=== PATIENT | male | born 1955 | race Caucasian/White ===

== ENCOUNTER 2020-08-11 15:39 | Inpatient (IN) | payer MEDICARE, OTHER, SELFPAY ==
[2020-08-11] VITALS (20 sets, daily range): BP systolic 106–137; BP diastolic 77–99; PULSE 98–132; RESP 18–26; TEMP 36.4–36.7; O2SAT 90–100; BMI 40.6
--- NOTE | 2020-08-11 15:54 | XR_ITS ---
WS: [id number] Right foot, 3 views, 08/11/2020 Clinical Data: injury Comparison: None. Findings: No new fractures or dislocations are seen. There is a unhealed old fracture of the base of the right fifth metatarsal. There is soft tissue swelling and subcutaneous air adjacent to the medial aspect of the right great toe proximal phalanx. There is a small erosion at the head of the right first metata rsal The metatarsal tarsal junction show severe osteoarthritic change. There is an Achilles spur. The re is calcification in the martinez of small arteries consistent with diabetes. XR/XR foot RT min 3V* [id number] Impression: 1. Soft tissue swelling and subcutaneous air adjacent to the right great toe pr oximal phalanx which may represent cellulitis with a small erosion of the head of the right first metatarsal that could represent osteomyelitis. 2. Old fracture of base of right fifth metatarsal. 3. 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
--- NOTE | 2020-08-11 17:44 | CTR_ITS ---
PROCEDURE INFORMATION: Exam: CT Right Lower Extremity Without Contrast, Foot Exam date and time: 08/11/2020 7:09 PM Age: 65 years old Clinical indication: Pain; Foot; Right; Additional info: Infection TECHNIQUE: Imaging protocol: CT of the Right lower extremity without contrast was performed. Exam focused on the foot. Radiation optimization: All CT scans at this facility use at least one of these dose optimization techniques: automated exposure control; mA and/or kV adjustment per patient size (includes targeted exams where dose is matched to clinical indication); or iterative reconstruction. COMPARISON: CR XR foot RT min 3V* [id number] 08/11/2020 4:32 PM RADIATION DOSE METRICS: Total DLP (mGy-cm): 205.32 FINDINGS: Bones/joints: There is no osseous erosion at the site of soft tissue infection in the great toe. No fractures or malalignment. There is marked diffuse intertarsal and tarsometatarsal arthrosis characterized by irregularity and fragmentation of the articular surfaces with subchondral sclerosis and minimal intra-articular debris. No acute fracture. Ankle is unremarkable. Soft tissues: There is focal soft tissue edema and gas along the medial aspect of the great toe. There is diffuse edema in the dorsum of the foot and surrounding the ankle. Vasculature: There is marked vascular calcification in the ankle and foot. CT/CT foot RT wo con* [id number] IMPRESSION: 1. No definitive findings of osteomyelitis. 2. Focal soft tissue gas along the medial aspect of the great toe consistent with infection. The presence of gas may be due to disruption of the overlying skin. Necrotizing soft tissue infection cannot be excluded. 3. 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 Radiation Dose CTDIVOL = (mGy): DLP = 205.32 (mGy-cm)
--- NOTE | 2020-08-11 18:24 | ED_ITS ---
Documented by User: ELLA Carrillo 08/11/20 18:48 HPI - Skin/Abscess/Foreign Bdy General: Chief complaint: Skin/Abscess/Foreign Body Stated complaint: R FOOT PAIN Time Seen by Provider: 08/11/20 15:54 History of Present Illness: HPI narrative: Patient complains about tenderness drainage sore that is appeared on his right big toe at the base just the last day and a half was seen by PCP Riley Santiago at [place] and sent over here. Is diabetic and on dialysis patient recently treated at [facility] in [place] with Covid infection complaint: abscess/boil Onset (ago): day(s) Tetanus up to date: yes Location: R foot Severity: moderate Associated symptoms: Deny chills, fever(s), nausea or vomiting Treatments prior to arrival: none Review of Systems Const: Denies: fever(s), chills or body aches Eyes: Denies: change in vision or blurry vision ENMT: Denies: throat pain or nasal congestion Card: Denies: chest pain or dyspnea on exertion Resp: Denies: dyspnea, productive cough or non-productive cough GI: Denies: abdominal pain, nausea or vomiting : Denies: difficulty urinating Musc: Reports: joint swelling (Drainage from base of right big toe) and joint redness; Denies: extremity pain Skin/Breast: Denies: rash Neuro: Denies: headache(s) Psych: Denies: anxiety or depression Edmundo/Lymph: Denies: easy bruising Physical Exam Const: COMMON NORMALS: no acute distress, average body habitus and patient oriented x3 HENMT: COMMON NORMALS: normocephalic HEAD & SCALP: normal to inspection and normocephalic FACE & SINUS: normal facial exam Eye: COMMON NORMALS: conjunctivae normal GENERAL EYE: appearance normal, both eyes and all related structures CONJUNCTIVA: Yes conjunctivae normal Neck/C-Spine: COMMON NORMALS: no JVD Chest: COMMONS NORMALS: normal inspection of the chest Resp: COMMON NORMALS: normal respiratory effort and clear to auscultation bilaterally AUSCULTATION: clear to auscultation bilaterally Cardio: COMMON NORMALS: no JVD and regular rhythm RATE: tachycardic RHYTHM: regular rhythm GI: COMMON NORMALS: Normal to inspection, nondistended, normoactive bowel sounds present Extremity: COMMON NORMALS: normal to inspection and full ROM RIGHT LOWER EXTREMITY: Yes foot & digits (Patient right big toe with foul-smelling drainage medial aspect shows disco) Neuro: COMMON NORMALS: patient oriented x3 Course Vital Signs: Vital signs: Vital Signs Temperature 98.5 F 08/12/20 01:32 Pulse Rate 87 08/12/20 02:10 Respiratory Rate 20 H 08/12/20 02:10 Blood Pressure 110/79 08/12/20 02:10 Pulse Oximetry 98 08/12/20 02:10 MDM - Skin/Abscess/Foreign Bdy MDM Narrative: Medical decision making narrative: Discussed case with Dr. Kinsey Lab Data: Labs: Lab Results 08/11/20 08/11/20 08/11/20 Range/Units 18:17 18:17 18:17 WBC 19.8 H (4.0-10.0) 10^3/ uL RBC 2.29 L (4.1-5.3) 10^6/u L Hgb 6.8 L (11.7-16.6) g/dL Hct 20.8 L* (42.0-52.0) % MCV 90.8 (80-94) fL MCH 29.7 (28.0-34.0) pg MCHC 32.7 (30.0-36.0) g/dL RDW 14.4 (12.1-15.1) % Plt Count 311 (130-400) 10^3/c mm MPV 10.2 (7.4-10.4) fL Neut % (Auto) 83.9 % Lymph % (Auto) 3.9 % Perkins % (Auto) 10.4 % Eos % (Auto) 0.4 % Baso % (Auto) 0.3 % Neut # (Auto) 16.64 H (1.8-7.7) 10^3/u L Lymph # (Auto) 0.8 (0.8-4.8) 10^3/u L Perkins # (Auto) 2.1 H (0.2-0.9) 10^3/u L Eos # (Auto) 0.1 (0.0-0.8) 10^3/u L Baso # (Auto) 0.1 (0.0-0.1) 10^3/u L Nucleated RBC % (a uto) 0 % Nucleated RBCs # 0.0 /100WBC ESR (0-10) mm/hr PT 15.30 H (12.1-14.9) SECO NDS INR 1.17 (0.8-1.2) APTT 38.6 H (23.9-36.7) SECO NDS Sodium 133 L (136-145) mmol/L Potassium 3.6 (3.5-5.1) mmol/L Chloride 96 L (98-107) mmol/L Carbon Dioxide 22 (22-29) mmol/L Anion Gap 18.6 (5-19) BUN 70 H (8-23) mg/dL Creatinine 6.5 H* (0.7-1.2) mg/dL GFR Calculation 8.6 L (90-130) mL/min Glucose 131 H (65-115) mg/dL Calculated Osmolal ity 298 H (285-295) mOsm/k g Lactic Acid (0.5-2.2) mmol/L Calcium 8.9 (8.5-10.5) mg/dL Magnesium (1.7-2.3) mg/dL Total Bilirubin 0.2 (0.15-1.2) mg/dL AST 25 (0-40) U/L ALT 34 (0-41) U/L Alkaline Phosphata se 131 H (40-130) IU/L Troponin T Baselin e (0-15) ng/L Troponin T 120 Min little traverse (0-15) ng/L Delta Troponin T (0-10) ABS# C-Reactive Protein (0.0-4.9) mg/L Total Protein 6.4 L (6.6-8.7) g/dL Albumin 2.8 L (3.5-5.2) g/dL Globulin 3.6 (1.3-4.6) g/dL Urine Color (Yellow) Urine Appearance (CLEAR) Urine pH (5-7) Ur Specific Gravit y (1.005-1.030) Urine Protein (Negative) Urine Glucose (UA) (Normal) Urine Ketones (Negative) Urine Blood (Negative) Urine Nitrate (Negative) Urine Bilirubin (Negative) Urine Urobilinogen (Negative) mg/dL Ur Leukocyte Frannie ase (Negative) Urine RBC (0-2) /hpf Urine WBC (0-5) /hpf Ur Squamous Epith Cells (0-5) /hpf Amorphous Sediment Urine Bacteria (NONE) /hpf Blood Type Rho(D) Type Antibody Screen Crossmatch 08/11/20 08/11/20 08/11/20 Range/Units 18:17 18:17 18:17 WBC (4.0-10.0) 10^3/ uL RBC (4.1-5.3) 10^6/u L Hgb (11.7-16.6) g/dL Hct (42.0-52.0) % MCV (80-94) fL MCH (28.0-34.0) pg MCHC (30.0-36.0) g/dL RDW (12.1-15.1) % Plt Count (130-400) 10^3/c mm MPV (7.4-10.4) fL Neut % (Auto) % Lymph % (Auto) % Perkins % (Auto) % Eos % (Auto) % Baso % (Auto) % Neut # (Auto) (1.8-7.7) 10^3/u L Lymph # (Auto) (0.8-4.8) 10^3/u L Perkins # (Auto) (0.2-0.9) 10^3/u L Eos # (Auto) (0.0-0.8) 10^3/u L Baso # (Auto) (0.0-0.1) 10^3/u L Nucleated RBC % (a uto) % Nucleated RBCs # /100WBC ESR > 120 H (0-10) mm/hr PT (12.1-14.9) SECO NDS INR (0.8-1.2) APTT (23.9-36.7) SECO NDS Sodium (136-145) mmol/L Potassium (3.5-5.1) mmol/L Chloride (98-107) mmol/L Carbon Dioxide (22-29) mmol/L Anion Gap (5-19) BUN (8-23) mg/dL Creatinine (0.7-1.2) mg/dL GFR Calculation (90-130) mL/min Glucose (65-115) mg/dL Calculated Osmolal ity (285-295) mOsm/k g Lactic Acid (0.5-2.2) mmol/L Calcium (8.5-10.5) mg/dL Magnesium 1.4 L (1.7-2.3) mg/dL Total Bilirubin (0.15-1.2) mg/dL AST (0-40) U/L ALT (0-41) U/L Alkaline Phosphata se (40-130) IU/L Troponin T Baselin e 149 H* (0-15) ng/L Troponin T 120 Min little traverse (0-15) ng/L Delta Troponin T (0-10) ABS# C-Reactive Protein 175.5 H (0.0-4.9) mg/L Total Protein (6.6-8.7) g/dL Albumin (3.5-5.2) g/dL Globulin (1.3-4.6) g/dL Urine Color (Yellow) Urine Appearance (CLEAR) Urine pH (5-7) Ur Specific Gravit y (1.005-1.030) Urine Protein (Negative) Urine Glucose (UA) (Normal) Urine Ketones (Negative) Urine Blood (Negative) Urine Nitrate (Negative) Urine Bilirubin (Negative) Urine Urobilinogen (Negative) mg/dL Ur Leukocyte Frannie ase (Negative) Urine RBC (0-2) /hpf Urine WBC (0-5) /hpf Ur Squamous Epith Cells (0-5) /hpf Amorphous Sediment Urine Bacteria (NONE) /hpf Blood Type Rho(D) Type Antibody Screen Crossmatch 08/11/20 08/11/20 08/11/20 Range/Units 19:13 20:30 21:35 WBC (4.0-10.0) 10^3/ uL RBC (4.1-5.3) 10^6/u L Hgb (11.7-16.6) g/dL Hct (42.0-52.0) % MCV (80-94) fL MCH (28.0-34.0) pg MCHC (30.0-36.0) g/dL RDW (12.1-15.1) % Plt Count (130-400) 10^3/c mm MPV (7.4-10.4) fL Neut % (Auto) % Lymph % (Auto) % Perkins % (Auto) % Eos % (Auto) % Baso % (Auto) % Neut # (Auto) (1.8-7.7) 10^3/u L Lymph # (Auto) (0.8-4.8) 10^3/u L Perkins # (Auto) (0.2-0.9) 10^3/u L Eos # (Auto) (0.0-0.8) 10^3/u L Baso # (Auto) (0.0-0.1) 10^3/u L Nucleated RBC % (a uto) % Nucleated RBCs # /100WBC ESR (0-10) mm/hr PT (12.1-14.9) SECO NDS INR (0.8-1.2) APTT (23.9-36.7) SECO NDS Sodium (136-145) mmol/L Potassium (3.5-5.1) mmol/L Chloride (98-107) mmol/L Carbon Dioxide (22-29) mmol/L Anion Gap (5-19) BUN (8-23) mg/dL Creatinine (0.7-1.2) mg/dL GFR Calculation (90-130) mL/min Glucose (65-115) mg/dL Calculated Osmolal ity (285-295) mOsm/k g Lactic Acid 0.9 (0.5-2.2) mmol/L Calcium (8.5-10.5) mg/dL Magnesium (1.7-2.3) mg/dL Total Bilirubin (0.15-1.2) mg/dL AST (0-40) U/L ALT (0-41) U/L Alkaline Phosphata se (40-130) IU/L Troponin T Baselin e (0-15) ng/L Troponin T 120 Min little traverse (0-15) ng/L Delta Troponin T (0-10) ABS# C-Reactive Protein (0.0-4.9) mg/L Total Protein (6.6-8.7) g/dL Albumin (3.5-5.2) g/dL Globulin (1.3-4.6) g/dL Urine Color Yellow (Yellow) Urine Appearance Clear (CLEAR) Urine pH 6.5 (5-7) Ur Specific Gravit y 1.010 (1.005-1.030) Urine Protein 3+ H (Negative) Urine Glucose (UA) 2+ (Normal) Urine Ketones Negative (Negative) Urine Blood 1+ H (Negative) Urine Nitrate Negative (Negative) Urine Bilirubin Neg (Negative) Urine Urobilinogen Norm (Negative) mg/dL Ur Leukocyte Frannie ase Negative (Negative) Urine RBC 0-4 H (0-2) /hpf Urine WBC None (0-5) /hpf Ur Squamous Epith Cells None (0-5) /hpf Amorphous Sediment Not Reportable Urine Bacteria Trace (NONE) /hpf Blood Type O Negative Rho(D) Type Negative Antibody Screen Negative Crossmatch See Detail 08/11/20 Range/Units 21:35 WBC (4.0-10.0) 10^3/ uL RBC (4.1-5.3) 10^6/u L Hgb (11.7-16.6) g/dL Hct (42.0-52.0) % MCV (80-94) fL MCH (28.0-34.0) pg MCHC (30.0-36.0) g/dL RDW (12.1-15.1) % Plt Count (130-400) 10^3/c mm MPV (7.4-10.4) fL Neut % (Auto) % Lymph % (Auto) % Perkins % (Auto) % Eos % (Auto) % Baso % (Auto) % Neut # (Auto) (1.8-7.7) 10^3/u L Lymph # (Auto) (0.8-4.8) 10^3/u L Perkins # (Auto) (0.2-0.9) 10^3/u L Eos # (Auto) (0.0-0.8) 10^3/u L Baso # (Auto) (0.0-0.1) 10^3/u L Nucleated RBC % (a uto) % Nucleated RBCs # /100WBC ESR (0-10) mm/hr PT (12.1-14.9) SECO NDS INR (0.8-1.2) APTT (23.9-36.7) SECO NDS Sodium (136-145) mmol/L Potassium (3.5-5.1) mmol/L Chloride (98-107) mmol/L Carbon Dioxide (22-29) mmol/L Anion Gap (5-19) BUN (8-23) mg/dL Creatinine (0.7-1.2) mg/dL GFR Calculation (90-130) mL/min Glucose (65-115) mg/dL Calculated Osmolal ity (285-295) mOsm/k g Lactic Acid (0.5-2.2) mmol/L Calcium (8.5-10.5) mg/dL Magnesium (1.7-2.3) mg/dL Total Bilirubin (0.15-1.2) mg/dL AST (0-40) U/L ALT (0-41) U/L Alkaline Phosphata se (40-130) IU/L Troponin T Baselin e (0-15) ng/L Troponin T 120 Min little traverse 142.4 H (0-15) ng/L Delta Troponin T -6.6 L (0-10) ABS# C-Reactive Protein (0.0-4.9) mg/L Total Protein (6.6-8.7) g/dL Albumin (3.5-5.2) g/dL Globulin (1.3-4.6) g/dL Urine Color (Yellow) Urine Appearance (CLEAR) Urine pH (5-7) Ur Specific Gravit y (1.005-1.030) Urine Protein (Negative) Urine Glucose (UA) (Normal) Urine Ketones (Negative) Urine Blood (Negative) Urine Nitrate (Negative) Urine Bilirubin (Negative) Urine Urobilinogen (Negative) mg/dL Ur Leukocyte Frannie ase (Negative) Urine RBC (0-2) /hpf Urine WBC (0-5) /hpf Ur Squamous Epith Cells (0-5) /hpf Amorphous Sediment Urine Bacteria (NONE) /hpf Blood Type Rho(D) Type Antibody Screen Crossmatch Discharge Plan Discharge Patient Disposition: Home Clinical Impression: Atrial fibrillation with RVR Cellulitis Qualifiers: Site of cellulitis: extremity Site of cellulitis of extremity: lower extremity Laterality: right Qualified Code(s): L03.115 - Cellulitis of right lower limb Anemia Qualifiers: Anemia type: unspecified type Qualified Code(s): D64.9 - Anemia, unspecified Condition: Stable Sign Out Sign Out Data: Patient Sign Out occurred on 08/11/20 at 18:53. Patient's care was discussed, and care was transferred from to [facility]. Coding Level of Care Code ED Machine Fixer for Chg Fwd Exam Comprehensive Documented by User: Bev Kinsey 08/12/20 02:33 HPI - Skin/Abscess/Foreign Bdy General: Chief complaint: Skin/Abscess/Foreign Body Stated complaint: R FOOT PAIN Time Seen by Provider: 08/11/20 15:54 Course Vital Signs: Vital signs: Vital Signs Temperature 98.5 F 08/12/20 01:32 Pulse Rate 87 08/12/20 02:10 Respiratory Rate 20 H 08/12/20 02:10 Blood Pressure 110/79 08/12/20 02:10 Pulse Oximetry 98 08/12/20 02:10 MDM - Skin/Abscess/Foreign Bdy MDM Narrative: Medical decision making narrative: 1899 -Case turned over to me from Jj Barba APN. Please see his note for his history, physical exam and medical decision-making notes. Patient states that yesterday morning he woke up with his foot was red and swollen. The day before he had no problems. He does not remember any puncture wounds, injuries, trauma or any other problems with that foot. He went and saw his primary care provider Riley Garcia he placed him on Keflex and possibly doxycycline. Patient went on to these medicines but since that time the infection and swelling has gotten progressively worse. He has had some chills but denies any fever. Patient does have multiple medical problems and does peritoneal dialysis at night. He has hypertension, diabetes is unaware if he has any history of vascular disease. Currently the patient has mild discomfort but otherwise no complaints. He has been referred to see Dr. Woodall but has not been able to make that appointment as it is not till later this month. 2300 -the patient is improved on a Cardizem drip and is receiving blood. His CT scan shows gas in the tissues but on the area that it describes there is areas of spontaneous drainage. I do not believe there to be underlying abscess and I do not clinically believe the patient has necrotizing fasciitis. There is no CT evidence of osteomyelitis. Patient received aggressive antibiotics and ultrasound shows good blood flow to his foot and he does have a good sensation. His pain is not out of proportion to exam. There is no DVT noted either. I contacted and reviewed the case in full with Dr. Coyne he is agreeable to see the patient in consult. The case was endorsed to Dr. Gibbons he agrees admit the patient to the ICU. Currently the patient is receiving blood, he is not on pressors but he is on a Cardizem drip with improved rate control of his A. fib. In regards the patient's anemia he has had an ulcer in the past and with that he had to have a transfusion but he had melena with that episode. He denies any blood in his stools or melena at this time. Lab Data: Labs: Lab Results 08/11/20 08/11/20 08/11/20 Range/Units 18:17 18:17 18:17 WBC 19.8 H (4.0-10.0) 10^3/ uL RBC 2.29 L (4.1-5.3) 10^6/u L Hgb 6.8 L (11.7-16.6) g/dL Hct 20.8 L* (42.0-52.0) % MCV 90.8 (80-94) fL MCH 29.7 (28.0-34.0) pg MCHC 32.7 (30.0-36.0) g/dL RDW 14.4 (12.1-15.1) % Plt Count 311 (130-400) 10^3/c mm MPV 10.2 (7.4-10.4) fL Neut % (Auto) 83.9 % Lymph % (Auto) 3.9 % Perkins % (Auto) 10.4 % Eos % (Auto) 0.4 % Baso % (Auto) 0.3 % Neut # (Auto) 16.64 H (1.8-7.7) 10^3/u L Lymph # (Auto) 0.8 (0.8-4.8) 10^3/u L Perkins # (Auto) 2.1 H (0.2-0.9) 10^3/u L Eos # (Auto) 0.1 (0.0-0.8) 10^3/u L Baso # (Auto) 0.1 (0.0-0.1) 10^3/u L Nucleated RBC % (a uto) 0 % Nucleated RBCs # 0.0 /100WBC ESR (0-10) mm/hr PT 15.30 H (12.1-14.9) SECO NDS INR 1.17 (0.8-1.2) APTT 38.6 H (23.9-36.7) SECO NDS Sodium 133 L (136-145) mmol/L Potassium 3.6 (3.5-5.1) mmol/L Chloride 96 L (98-107) mmol/L Carbon Dioxide 22 (22-29) mmol/L Anion Gap 18.6 (5-19) BUN 70 H (8-23) mg/dL Creatinine 6.5 H* (0.7-1.2) mg/dL GFR Calculation 8.6 L (90-130) mL/min Glucose 131 H (65-115) mg/dL Calculated Osmolal ity 298 H (285-295) mOsm/k g Lactic Acid (0.5-2.2) mmol/L Calcium 8.9 (8.5-10.5) mg/dL Magnesium (1.7-2.3) mg/dL Total Bilirubin 0.2 (0.15-1.2) mg/dL AST 25 (0-40) U/L ALT 34 (0-41) U/L Alkaline Phosphata se 131 H (40-130) IU/L Troponin T Baselin e (0-15) ng/L Troponin T 120 Min little traverse (0-15) ng/L Delta Troponin T (0-10) ABS# C-Reactive Protein (0.0-4.9) mg/L Total Protein 6.4 L (6.6-8.7) g/dL Albumin 2.8 L (3.5-5.2) g/dL Globulin 3.6 (1.3-4.6) g/dL Urine Color (Yellow) Urine Appearance (CLEAR) Urine pH (5-7) Ur Specific Gravit y (1.005-1.030) Urine Protein (Negative) Urine Glucose (UA) (Normal) Urine Ketones (Negative) Urine Blood (Negative) Urine Nitrate (Negative) Urine Bilirubin (Negative) Urine Urobilinogen (Negative) mg/dL Ur Leukocyte Frannie ase (Negative) Urine RBC (0-2) /hpf Urine WBC (0-5) /hpf Ur Squamous Epith Cells (0-5) /hpf Amorphous Sediment Urine Bacteria (NONE) /hpf Blood Type Rho(D) Type Antibody Screen Crossmatch 08/11/20 08/11/20 08/11/20 Range/Units 18:17 18:17 18:17 WBC (4.0-10.0) 10^3/ uL RBC (4.1-5.3) 10^6/u L Hgb (11.7-16.6) g/dL Hct (42.0-52.0) % MCV (80-94) fL MCH (28.0-34.0) pg MCHC (30.0-36.0) g/dL RDW (12.1-15.1) % Plt Count (130-400) 10^3/c mm MPV (7.4-10.4) fL Neut % (Auto) % Lymph % (Auto) % Perkins % (Auto) % Eos % (Auto) % Baso % (Auto) % Neut # (Auto) (1.8-7.7) 10^3/u L Lymph # (Auto) (0.8-4.8) 10^3/u L Perkins # (Auto) (0.2-0.9) 10^3/u L Eos # (Auto) (0.0-0.8) 10^3/u L Baso # (Auto) (0.0-0.1) 10^3/u L Nucleated RBC % (a uto) % Nucleated RBCs # /100WBC ESR > 120 H (0-10) mm/hr PT (12.1-14.9) SECO NDS INR (0.8-1.2) APTT (23.9-36.7) SECO NDS Sodium (136-145) mmol/L Potassium (3.5-5.1) mmol/L Chloride (98-107) mmol/L Carbon Dioxide (22-29) mmol/L Anion Gap (5-19) BUN (8-23) mg/dL Creatinine (0.7-1.2) mg/dL GFR Calculation (90-130) mL/min Glucose (65-115) mg/dL Calculated Osmolal ity (285-295) mOsm/k g Lactic Acid (0.5-2.2) mmol/L Calcium (8.5-10.5) mg/dL Magnesium 1.4 L (1.7-2.3) mg/dL Total Bilirubin (0.15-1.2) mg/dL AST (0-40) U/L ALT (0-41) U/L Alkaline Phosphata se (40-130) IU/L Troponin T Baselin e 149 H* (0-15) ng/L Troponin T 120 Min little traverse (0-15) ng/L Delta Troponin T (0-10) ABS# C-Reactive Protein 175.5 H (0.0-4.9) mg/L Total Protein (6.6-8.7) g/dL Albumin (3.5-5.2) g/dL Globulin (1.3-4.6) g/dL Urine Color (Yellow) Urine Appearance (CLEAR) Urine pH (5-7) Ur Specific Gravit y (1.005-1.030) Urine Protein (Negative) Urine Glucose (UA) (Normal) Urine Ketones (Negative) Urine Blood (Negative) Urine Nitrate (Negative) Urine Bilirubin (Negative) Urine Urobilinogen (Negative) mg/dL Ur Leukocyte Frannie ase (Negative) Urine RBC (0-2) /hpf Urine WBC (0-5) /hpf Ur Squamous Epith Cells (0-5) /hpf Amorphous Sediment Urine Bacteria (NONE) /hpf Blood Type Rho(D) Type Antibody Screen Crossmatch 08/11/20 08/11/20 08/11/20 Range/Units 19:13 20:30 21:35 WBC (4.0-10.0) 10^3/ uL RBC (4.1-5.3) 10^6/u L Hgb (11.7-16.6) g/dL Hct (42.0-52.0) % MCV (80-94) fL MCH (28.0-34.0) pg MCHC (30.0-36.0) g/dL RDW (12.1-15.1) % Plt Count (130-400) 10^3/c mm MPV (7.4-10.4) fL Neut % (Auto) % Lymph % (Auto) % Perkins % (Auto) % Eos % (Auto) % Baso % (Auto) % Neut # (Auto) (1.8-7.7) 10^3/u L Lymph # (Auto) (0.8-4.8) 10^3/u L Perkins # (Auto) (0.2-0.9) 10^3/u L Eos # (Auto) (0.0-0.8) 10^3/u L Baso # (Auto) (0.0-0.1) 10^3/u L Nucleated RBC % (a uto) % Nucleated RBCs # /100WBC ESR (0-10) mm/hr PT (12.1-14.9) SECO NDS INR (0.8-1.2) APTT (23.9-36.7) SECO NDS Sodium (136-145) mmol/L Potassium (3.5-5.1) mmol/L Chloride (98-107) mmol/L Carbon Dioxide (22-29) mmol/L Anion Gap (5-19) BUN (8-23) mg/dL Creatinine (0.7-1.2) mg/dL GFR Calculation (90-130) mL/min Glucose (65-115) mg/dL Calculated Osmolal ity (285-295) mOsm/k g Lactic Acid 0.9 (0.5-2.2) mmol/L Calcium (8.5-10.5) mg/dL Magnesium (1.7-2.3) mg/dL Total Bilirubin (0.15-1.2) mg/dL AST (0-40) U/L ALT (0-41) U/L Alkaline Phosphata se (40-130) IU/L Troponin T Baselin e (0-15) ng/L Troponin T 120 Min little traverse (0-15) ng/L Delta Troponin T (0-10) ABS# C-Reactive Protein (0.0-4.9) mg/L Total Protein (6.6-8.7) g/dL Albumin (3.5-5.2) g/dL Globulin (1.3-4.6) g/dL Urine Color Yellow (Yellow) Urine Appearance Clear (CLEAR) Urine pH 6.5 (5-7) Ur Specific Gravit y 1.010 (1.005-1.030) Urine Protein 3+ H (Negative) Urine Glucose (UA) 2+ (Normal) Urine Ketones Negative (Negative) Urine Blood 1+ H (Negative) Urine Nitrate Negative (Negative) Urine Bilirubin Neg (Negative) Urine Urobilinogen Norm (Negative) mg/dL Ur Leukocyte Frannie ase Negative (Negative) Urine RBC 0-4 H (0-2) /hpf Urine WBC None (0-5) /hpf Ur Squamous Epith Cells None (0-5) /hpf Amorphous Sediment Not Reportable Urine Bacteria Trace (NONE) /hpf Blood Type O Negative Rho(D) Type Negative Antibody Screen Negative Crossmatch See Detail 08/11/20 Range/Units 21:35 WBC (4.0-10.0) 10^3/ uL RBC (4.1-5.3) 10^6/u L Hgb (11.7-16.6) g/dL Hct (42.0-52.0) % MCV (80-94) fL MCH (28.0-34.0) pg MCHC (30.0-36.0) g/dL RDW (12.1-15.1) % Plt Count (130-400) 10^3/c mm MPV (7.4-10.4) fL Neut % (Auto) % Lymph % (Auto) % Perkins % (Auto) % Eos % (Auto) % Baso % (Auto) % Neut # (Auto) (1.8-7.7) 10^3/u L Lymph # (Auto) (0.8-4.8) 10^3/u L Perkins # (Auto) (0.2-0.9) 10^3/u L Eos # (Auto) (0.0-0.8) 10^3/u L Baso # (Auto) (0.0-0.1) 10^3/u L Nucleated RBC % (a uto) % Nucleated RBCs # /100WBC ESR (0-10) mm/hr PT (12.1-14.9) SECO NDS INR (0.8-1.2) APTT (23.9-36.7) SECO NDS Sodium (136-145) mmol/L Potassium (3.5-5.1) mmol/L Chloride (98-107) mmol/L Carbon Dioxide (22-29) mmol/L Anion Gap (5-19) BUN (8-23) mg/dL Creatinine (0.7-1.2) mg/dL GFR Calculation (90-130) mL/min Glucose (65-115) mg/dL Calculated Osmolal ity (285-295) mOsm/k g Lactic Acid (0.5-2.2) mmol/L Calcium (8.5-10.5) mg/dL Magnesium (1.7-2.3) mg/dL Total Bilirubin (0.15-1.2) mg/dL AST (0-40) U/L ALT (0-41) U/L Alkaline Phosphata se (40-130) IU/L Troponin T Baselin e (0-15) ng/L Troponin T 120 Min [place] 142.4 H (0-15) ng/L Delta Troponin T -6.6 L (0-10) ABS# C-Reactive Protein (0.0-4.9) mg/L Total Protein (6.6-8.7) g/dL Albumin (3.5-5.2) g/dL Globulin (1.3-4.6) g/dL Urine Color (Yellow) Urine Appearance (CLEAR) Urine pH (5-7) Ur Specific Gravit y (1.005-1.030) Urine Protein (Negative) Urine Glucose (UA) (Normal) Urine Ketones (Negative) Urine Blood (Negative) Urine Nitrate (Negative) Urine Bilirubin (Negative) Urine Urobilinogen (Negative) mg/dL Ur Leukocyte Frannie ase (Negative) Urine RBC (0-2) /hpf Urine WBC (0-5) /hpf Ur Squamous Epith Cells (0-5) /hpf Amorphous Sediment Urine Bacteria (NONE) /hpf Blood Type Rho(D) Type Antibody Screen Crossmatch Imaging Data^: XR Right Foot: Attestation: I personally reviewed and interpreted this imaging study as follows: My impression: Possible osteolytic lesions based the first metatarsal CT Right Foot: Radiologist's impression: [address] [address] [address] Scan Report Signed Patient: Levi Bonilla #: [id number] : 4Acct#:[id number] Age/Sex: 65 / MADM Date: 08/11/20 Loc: ERRoom/Bed: Attending Dr: Ordering Provider/Ordering MD: Divine Barba Sr, [facility]- Date of Service: 08/11/20 Procedure(s): CT foot RT wo con* [id number] Accession Number(s): [id number] Report Number: [id number] PROCEDURE INFORMATION: Exam: CT Right Lower Extremity Without Contrast, Foot Exam date and time: 08/11/2020 7:09 PM Age: 65 years old Clinical indication: Pain; Foot; Right; Additional info: Infection TECHNIQUE: Imaging protocol: CT of the Right lower extremity without contrast was performed. Exam focused on the foot. Radiation optimization: All CT scans at this facility use at least one of these dose optimization techniques: automated exposure control; mA and/or kV adjustment per patient size (includes targeted exams where dose is matched to clinical indication); or iterative reconstruction. COMPARISON: CR XR foot RT min 3V* [id number] 08/11/2020 4:32 PM RADIATION DOSE METRICS: Total DLP (mGy-cm): 205.32 FINDINGS: Bones/joints: There is no osseous erosion at the site of soft tissue infection in the great toe. No fractures or malalignment. There is marked diffuse intertarsal and tarsometatarsal arthrosis characterized by irregularity and fragmentation of the articular surfaces with subchondral sclerosis and minimal intra-articular debris. No acute fracture. Ankle is unremarkable. Soft tissues: There is focal soft tissue edema and gas along the medial aspect of the great toe. There is diffuse edema in the dorsum of the foot and surrounding the ankle. Vasculature: There is marked vascular calcification in the ankle and foot. CT/CT foot RT wo con* [id number] IMPRESSION: 1. No definitive findings of osteomyelitis. 2. Focal soft tissue gas along the medial aspect of the great toe consistent with infection. The presence of gas may be due to disruption of the overlying skin. Necrotizing soft tissue infection cannot be excluded. 3. 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 Radiation Dose CTDIVOL = (mGy): DLP = 205.32 (mGy-cm) Dictated By:Ole Bailey MD Signed By:Ole Baileyigned Date/Time:08/11/201953 DD/ 51 EKG Data^: EKG 1: Attestation: I personally reviewed and interpreted this EKG as follows: EKG Interpretation Date: 08/11/20 EKG interpretation time: 19:38 Interpretation: Atrial fibrillation with a ventricular rate of 133 beats a minute, normal axis, normal QTC, nonspecific ST and T wave changes. Discharge Plan Discharge Patient Disposition: Home Clinical Impression: Atrial fibrillation with RVR Cellulitis Qualifiers: Site of cellulitis: extremity Site of cellulitis of extremity: lower extremity Laterality: right Qualified Code(s): L03.115 - Cellulitis of right lower limb Anemia Qualifiers: Anemia type: unspecified type Qualified Code(s): D64.9 - Anemia, unspecified Condition: Stable Sign Out Sign Out Data: Patient Sign Out occurred on 08/11/20 at 18:53. Patient's care was discussed, and care was transferred from to Bev Kinsey. Coding Level of Care Code ED Machine Fixer for [facility] Fwd Exam Comprehensive
[2020-08-11 18:25] LABS: Basophils # 0.1 10^3/uL (0.0-0.1); Basophils % 0.3 %; Eosinophils # 0.1 10^3/uL (0.0-0.8); Eosinophils % 0.4 %; Hemoglobin 6.8 g/dL (11.7-16.6); Lymphocytes # 0.8 10^3/uL (0.8-4.8); Lymphocytes % 3.9 %; Mean Corpuscular HGB Conc 32.7 g/dL (30.0-36.0); Mean Corpuscular Hemoglobin 29.7 pg (28.0-34.0); Mean Corpuscular Volume 90.8 fL (80-94); Mean Platelet Volume 10.2 fL (7.4-10.4); Monocytes # 2.1 10^3/uL (0.2-0.9); Monocytes % 10.4 %; Neutrophils # 16.64 10^3/uL (1.8-7.7); Neutrophils % 83.9 %; Nucleated Red Blood Cells % 0 %; Platelet Count 311 10^3/cmm (130-400); Red Blood Count 2.29 10^6/uL (4.1-5.3); Red Cell Distribution Width 14.4 % (12.1-15.1); White Blood Count 19.8 10^3/uL (4.0-10.0)
[2020-08-11 18:38] LABS: Hematocrit 20.8 % (42.0-52.0)
--- NOTE | 2020-08-11 18:46 | XR_ITS ---
WS: [id number] Portable AP upright chest, 08/11/2020 Clinical Data: Weakness Comparison: None. Findings: No nodules, masses or effusions are seen. The heart is mildly enlarged. The pulmonary vascu larity is not increased. No pneumonia or pneumothorax is seen. XR/XR chest 1V portable [id number] Impression: Cardiomegaly.
--- NOTE | 2020-08-11 19:05 | ECG_ITS ---
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 Measurements Intervals [place] Rate: 122 P: NC: QRS: 24 QRSD: 95 T: -11 QT: 330 QTc: 470 Interpretive Statements ATRIAL FIBRILLATION WITH RAPID VENTRICULAR RESPONSE WITH ABERRANT CONDUCTION OR VENTRICULAR PREMATURE COMPLEXES NONSPECIFIC ST & T-WAVE ABNORMALITY ABNORMAL RHYTHM ECG Compared to ECG 08/11/2020 19:38:09 Ventricular premature complex(es) now present Aberrant conduction of supraventricular beat(s) now present T-wave abnormality still present Electronically Signed On 08-12-2020 17:22:53 POLYSOMNOGRAPHY TECHNICIAN by Gianluca Meek M.D. [id number]
[2020-08-11 19:08] LABS: Alanine Aminotransferase 34 U/L (0-41); Albumin Level 2.8 g/dL (3.5-5.2); Alkaline Phosphatase 131 IU/L (40-130); Anion Gap 18.6 (5-19); Aspartate Amino Transferase 25 U/L (0-40); Blood Urea Nitrogen 70 mg/dL (8-23); Calcium 8.9 mg/dL (8.5-10.5); Carbon Dioxide 22 mmol/L (22-29); Chloride 96 mmol/L (98-107); Globulin 3.6 g/dL (1.3-4.6); Glomerular Filtration Rate 8.6 mL/min (90-130); Glucose 131 mg/dL (65-115); Osmolality Calculated 298 mOsm/kg (285-295); Potassium 3.6 mmol/L (3.5-5.1); Sodium 133 mmol/L (136-145); Total Bilirubin 0.2 mg/dL (0.15-1.2); Total Protein 6.4 g/dL (6.6-8.7)
[2020-08-11] MEDS: piperacillin-tazobactam 4.5 GM in sodium chloride 0.9% (plus) 50 ML IV (19:41)
[2020-08-11] MEDS: pantoprazole 40 mg SDV 80 MG IVP (19:45)
--- NOTE | 2020-08-11 20:29 | USCV_ITS ---
Irene Levi Age: 65 Gender: M : 1955 Exam Date: 08/11/2020 21:21 Ordering Phys: Bev Kinsey DO Technologist: Fco Buckner [place] [facility] [place]: edema PROCEDURES: No DVT or superficial thrombus in right lower extremity FINDINGS: All veins examined appear free of thrombus. No filling defects on color Doppler flow analysis. Vein flow and caliber vary with respiration. Increase in venous flow with augmentation. All veins appear compressible.. CONCLUSIONS No evidence of right lower extremity DVT. Mayito Martines MD (Electronically Signed) Final Date: 12 August 2020 12:37 S
[2020-08-11] MEDS: sodium chloride 0.9% 1,000 ML 75 ML IV (20:33)
--- NOTE | 2020-08-11 21:05 | ECG_ITS ---
[facility] Test Date: 2020-08-11 Pat Name: Levi Bonilla Department: Room: Gender: Male Manager Apple: : 1955 Requested By: Bev Esquivel Order Number: [id number] Bruce MD: Radha Peterson M.D. Measurements Intervals [place] Rate: 133 P: [place]: QRS: 47 QRSD: 102 T: 27 QT: 339 QTc: 504 Interpretive Statements ATRIAL FIBRILLATION WITH RAPID VENTRICULAR RESPONSE NONSPECIFIC ST & T-WAVE ABNORMALITY No previous ECG available for comparison Electronically Signed On 08-11-2020 20:29:14 REPAIR OPERATOR by Radha Peterson M.D. [id number]
[2020-08-11 21:30] LABS: INR 1.17 (0.8-1.2)
[2020-08-11 21:31] LABS: Partial Thromboplastin Time 38.6 SECONDS (23.9-36.7)
[2020-08-11 21:32] LABS: Blood Urine 1+ (Negative); Glucose Urine UA 2+ (Normal); Ketones Urine Negative (Negative); Protein Urine 3+ (Negative); Urine Appearance Clear (CLEAR); Urine Color Yellow (Yellow); pH Urine 6.5 (5-7)
[2020-08-11 21:33] LABS: Add Urine Culture? No; Add Urine Microscopic? YES; Bacteria Urine TRACE /hpf; Bilirubin Urine Neg (Negative); Leukocyte Esterase Urine Negative (Negative); Nitrate Urine Negative (Negative); RBC Urine 0-4 /hpf (0-2); Urobilinogen Urine Norm (Negative)
[2020-08-11 21:47] LABS: C Reactive Protein 175.5 mg/L (0.0-4.9); Magnesium 1.4 mg/dL (1.7-2.3)
[2020-08-11 21:53] LABS: Troponin(5th) Baseline 149 ng/L (0-15)
[2020-08-11 22:19] LABS: Erythrocyte Sedimentation Rate > 120 mm/hr (0-10)
[2020-08-11 22:34] LABS: Lactic Sepsis W/Reflex 0.9 mmol/L (0.5-2.2)
[2020-08-11 22:35] LABS: Troponin 5 2HR 142.4 ng/L (0-15); Troponin 5 2HR Delta -6.6 ABS# (0-10)
[2020-08-11 22:55] LABS: Glucose Point of Care 150 mg/dL (70-110)
[2020-08-11] MEDS: clindamycin 900 MG/50 ML PREMIX 100 MG IV (22:58)
--- NOTE | 2020-08-11 23:22 | PC.NURSE ---
This RN agrees with silverware assembler assessment of patient
[2020-08-12] VITALS (302 sets, daily range): BP systolic 89–157; BP diastolic 66–115; PULSE 63–124; RESP 0–30; TEMP 36.4–36.9; O2SAT 76–100
--- NOTE | 2020-08-12 00:05 | PM.HP ---
Providers/Chief Complaint Admitting Physician: Lawrence Gibbons MD Primary Care Provider: Anmol Santiago Chief Complaint: R FOOT PAIN History of Present Illness Levi Bonilla is a 65 year old male with past medical history of hypertension diabetes, end-stage renal disease on peritoneal dialysis, Covid pneumonia 07/2020 (was admitted in [facility] for about a week and then discharged), gout, A. fib, status post watchman device placement currently on aspirin only (off anticoagulation post watchman device placement ) hypothyroidism came in with chief complaint of acute onset of tenderness drainage sore that is appeared on his right big toe at the base just the last day and a half, he denies any injury, any insect bite, any pain, any abnormal sensation, any fever. He has longstanding diabetic peripheral neuropathy with abnormal sensory loss in both the lower extremity, Charcot's foot is a possibility. Upon arrival in the ER he was worked up for diabetic foot ulcer. He was also in A. fib with RVR in the ER. Ortho was consulted for possible osteo-management by ER physician.He will see the patient in the morning. Necrotizing fasciitis and gas gangrene is less likely. Imaging studies: CT foot RT wo con: 1. No definitive findings of osteomyelitis. 2. Focal soft tissue gas along the medial aspect of the great toe consistent with infection. The presence of gas may be due to disruption of the overlying skin. Necrotizing soft tissue infection cannot be excluded. 3. 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 EKG: ATRIAL FIBRILLATION. NONSPECIFIC ST & T-WAVE ABNORMALITY. Pertinent labs: ESR: > 120 , CRP: 175.5 WBC: 13.8 , H&H: 6.7/21, platelet count: 275 Troponin: Baseline: 149 2-hour: 142, delta T: -6.6 ECA medications: Diltiazem drip, vancomycin 2 g, Zosyn : 4.5 g 1 dose , clindamycin, 900 mg one-time dose Review of Systems Const: Denies: fever(s), chills, body aches, change in appetite or diaphoresis Card: Denies: palpitations, edema, swelling of feet/ankles, dyspnea on exertion, orthopnea or leg pain with exertion Resp: Denies: dyspnea, productive cough, wheezing or pain on inspiration GI: Denies: abdominal pain, nausea, vomiting, diarrhea or constipation : Denies: flank pain or difficulty urinating Musc: Denies: back pain, extremity pain or extremity swelling Neuro: Denies: headache(s) or confusion Medications/Allergies Home Medications Medication Instructions Recorded Confirmed Last Taken Type allopurinol 300 mg PO DAILY 08/11/20 08/11/20 08/11/20 History amlodipine 10 mg PO DAILY 08/11/20 08/11/20 08/11/20 History aspirin 81 mg PO DAILY 08/11/20 08/11/20 08/11/20 History atorvastatin 20 mg PO DAILY 08/11/20 08/11/20 08/11/20 History cephalexin 500 mg PO BID 08/11/20 08/11/20 08/11/20 History citalopram 20 mg PO BEDTIME 08/11/20 08/11/20 08/10/20 History clonidine HCl 0.1 mg PO BID 08/11/20 08/11/20 08/11/20 History cyclobenzaprine 5 mg PO Q8H PRN 08/11/20 08/11/20 Unknown History doxycycline hyclate 100 mg PO DAILY 08/11/20 08/11/20 08/11/20 History ergocalciferol (vitamin D2) 1,250 mcg PO Q7D 08/11/20 08/11/20 08/11/20 History glipizide 5 mg PO DAILY 08/11/20 08/11/20 08/11/20 History levothyroxine 150 mcg PO DAILY 08/11/20 08/11/20 08/11/20 History losartan 100 mg PO DAILY 08/11/20 08/11/20 08/10/20 History megestrol 40 mg PO DAILY 08/11/20 08/11/20 08/11/20 History metoprolol tartrate 50 mg PO BID 08/11/20 08/11/20 08/11/20 History mupirocin calcium See Rx Instructions .ROUTE .COMPLEX 08/11/20 08/11/20 Unknown History pantoprazole 40 mg PO DAILY 08/11/20 08/11/20 08/11/20 History paricalcitol [Zemplar] 1 mcg PO DAILY 08/11/20 08/11/20 08/11/20 History peritoneal dialysis solution See Rx Instructions .ROUTE .COMPLEX 08/11/20 08/11/2020 History torsemide 100 mg PO DAILY 08/11/20 08/11/20 08/11/20 History tramadol 50 mg PO Q8H PRN 08/11/20 08/11/20 Unknown History Allergies Allergy/AdvReac Type Severity Reaction Status Date / Time No Known Allergies Allergy Verified 08/11/20 15:56 Vitals/I&O/Wt Last Vital Signs Temp 98 F 08/11/20 23:46 Pulse 104 H 08/11/20 23:46 Resp 21 H 08/11/20 22:52 BP 112/85 08/11/20 23:46 Pulse Ox 100 08/11/20 15:51 08/11/20 08/11/20 08/12/20 14:59 22:59 06:59 Intake Total 4.917 / 4.917 14.833 / 19.750 Balance 4.917 / 4.917 14.833 / 19.750 Weight last 48 hrs Weight 138.981 kg Weight 136.078 kg Physical Exam Const: COMMON NORMALS: patient oriented x3 HENMT: COMMON NORMALS: normocephalic and atraumatic HEAD & SCALP: normocephalic and atraumatic EXTERNAL EAR: Yes external ears normal Eye: COMMON NORMALS: no scleral icterus GENERAL EYE: appearance normal, both eyes and all related structures Chest: COMMONS NORMALS: normal inspection of the chest and normal palpation of entire chest wall CHEST: Yes Symmetrical chest wall rise Resp: COMMON NORMALS: normal respiratory effort, No retractions, No use of accessory muscles and clear to auscultation bilaterally EFFORT & INSPECTION: Yes symmetric chest movement AUSCULTATION: clear to auscultation bilaterally Cardio: COMMON NORMALS: regular rate, regular rhythm, S1 normal heart sound present, S2 normal heart sound present, No gallops present (Cardio), No murmurs present (Cardio), No rub (Cardio) and Peripheral pulses 2+ throughout RATE: regular rate RHYTHM: regular rhythm HEART SOUNDS: S1 normal heart sound present and S2 normal heart sound present PERIPHERAL PULSES: Peripheral pulses 2+ throughout GI: COMMON NORMALS: Normal to inspection, nondistended, normoactive bowel sounds present, Soft to palpation, non-tender, No hepatosplenomegaly present and no masses AUSCULTATION: Yes normoactive bowel sounds PALPATION: Yes Soft to palpation and Yes No hepatosplenomegaly present RECTAL EXAM: Yes deferred Extremity: COMMON NORMALS: no clubbing, cyanosis or edema and no pedal edema NARRATIVE EXTREMITY EXAM: right big toe with foul-smelling drainage medial aspect Neuro: COMMON NORMALS: patient oriented x3 Data : 08/11/20 18:17 08/11/20 18:17 Micro: Microbiology 08/11/20 21:42 Blood Culture - Preliminary Blood SPECIMEN COLLECTED 08/11/20 21:35 Blood Culture - Preliminary Blood SPECIMEN COLLECTED A&P Assessment and plan (1) Atrial fibrillation with RVR: Currently on Cardizem drip. We will switch to p.o. metoprolol 50 mg every 12 hours daily. Once heart rate is better controlled Status: Acute (2) Cellulitis: Possible cellulitis of right great toe. Rule out osteo. Less likely necrotizing fasciitis/gas gangrene Can consider MRI without contrast Continue Vanco and Zosyn for now Ortho on board. Status: Acute Qualifiers: Laterality: right Site of cellulitis: extremity Site of cellulitis of extremity: lower extremity Qualified Code(s): L03.115 - Cellulitis of right lower limb (3) Anemia: Likely anemia of inflammatory disease. No obvious source of bleeding identified. Denies any hematuria, melena, bright red blood per rectum. Currently not on any anticoagulation. We will order anemia panel Getting 2 units transfused. Monitor CBC. FOBT. If positive. Can be considered for age-appropriate malignancy screening. Status: Acute Qualifiers: Anemia type: unspecified type Qualified Code(s): D64.9 - Anemia, unspecified (4) Elevated troponin: Likely in the setting of transient A. fib with RVR. Resulting in troponin leak, possibly adding to chronically elevated troponin in the setting of end-stage renal disease. EKG is not suggestive of any acute myocardial insult Currently denies any chest pain shortness of breath Continue aspirin. Status: Acute (5) Hypertension: Currently blood pressure is well controlled We will continue with home medication amlodipine and clonidine Status: Acute (6) Diabetes: Continue low-dose sliding scale insulin Monitor fingerstick glucose Diabetic diet Status: Acute (7) Gout: Continue allopurinol 300 p.o. daily. Less likely gout flare. Status: Acute (8) End stage renal disease: On peritoneal dialysis. Telemetry nephrology Dr. Waterman on board. Getting PD Status: Acute (9) Hypothyroidism: Continue levothyroxine 150 mcg p.o. daily Status: Acute Additional A&P Information DVT prophylaxis: Heparin 5000 every 12 daily CODE STATUS: Full code Disposition: Home Attestations Medical Necessity Statement*: Patient needs to be in hospital for the management of A. fib with RVR, diabetic foot ulcer, peritoneal dialysis, severe anemia. Anticipated length of stay greater than 2 midnights Coding Level of Care Code Acute Water Project Manager for Chg Fwd Diagnoses Atrial fibrillation with RVR I48.91 Cellulitis L03.115 Laterality: right Site of cellulitis: extremity Site of cellulitis of extremity: lower extremity Anemia D64.9 Anemia type: unspecified type Elevated troponin R77.8 Hypertension I10 Diabetes E11.9 Gout M10.9 End stage renal disease N18.6 Hypothyroidism E03.9
[2020-08-12] MEDS: sodium chloride 0.9% (100 ml) 100 ML 10 ML ×2 (00:13→04:36)
--- NOTE | 2020-08-12 01:05 | ECG_ITS ---
[facility] Test Date: 2020-08-12 Pat Name: Levi Bonilla Department: Room: ICU02 Gender: Male Lease Broker: HILTON : 1955 Requested By: Bev Esquivel Order Number: [id number] Bruce MD: Gianluca Meek M.D. Measurements Intervals [place] Rate: 81 P: [place]: QRS: 69 QRSD: 109 T: 68 QT: 400 QTc: 464 Interpretive Statements ATRIAL FIBRILLATION NONSPECIFIC ST & T-WAVE ABNORMALITY ABNORMAL RHYTHM ECG Compared to ECG 08/11/2020 21:22:03 Ventricular premature complex(es) no longer present Aberrant conduction of supraventricular beat(s) no longer present T-wave abnormality still present Electronically Signed On 08-12-2020 17:39:12 LOCOMOTIVE MECHANIC APPRENTICE by Gianluca Meek M.D. [email or web address] [id number]
--- NOTE | 2020-08-12 01:47 | PC.PHAR ---
Pharmacokinetic dosing service Date: 08/12/20 Time: 020 Objective: Patient: Levi Bonilla Floor: ICU-2 Age: 65 yo Serum creatinine: 6.5 mg/dL Height: 72.0 Inches Weight (kg): 138.981 Diagnosis: Relevant medical/social history: Cultures and sensitivities: Other labs: Assessment: IBW (kg): 77.60 Dosing wt(kg): 138.981 Estimated Creatinine clearance (ml/min): 12.3 CRCL method: Cockcroft and Gault using ibw(default). Drug selected: Vancomycin Loading dose (mg): 0 Vd (liters): 125.1 (factor used: 0.9 L/kg) Antoni (hr-1): 0.015 Half life (hrs): 46.21 Recommended dose: 2000 mg Interval: 48 hrs Infusion time (hrs): 1 Predicted peak (mcg/mL): 30.9 Predicted trough (mcg/mL): 15.27 Total body weight is being used for vancomycin dosing. Renal function is stable [ ] /unstable [ ] Recommendations: Give Vancomycin 2000 mg q 48 hrs with an expected Cpeak of 30.9 mcg/ml and an expected Ctrough of 15.27 mcg/ml Renal dosing of other antibiotics (review renal dosing of other medications and list guidelines here): Thank you for the consult, will continue to follow. Signature: Alda Olea [facility]
[2020-08-12] MEDS: Dianeal low Ca w/2.5% dex 2,000 mL Bag 2000 ML INTRAPERIT ×4 (02:00→21:32)
[2020-08-12 04:39] LABS: Basophils % 0.3 %; Eosinophils # 0.1 10^3/uL (0.0-0.8); Eosinophils % 0.9 %; Hematocrit 21.1 % (42.0-52.0); Hemoglobin 6.7 g/dL (11.7-16.6); Lymphocytes # 0.9 10^3/uL (0.8-4.8); Lymphocytes % 6.3 %; Mean Corpuscular HGB Conc 31.8 g/dL (30.0-36.0); Mean Corpuscular Hemoglobin 29.3 pg (28.0-34.0); Mean Corpuscular Volume 92.1 fL (80-94); Mean Platelet Volume 10.5 fL (7.4-10.4); Monocytes # 1.4 10^3/uL (0.2-0.9); Monocytes % 9.9 %; Neutrophils # 11.21 10^3/uL (1.8-7.7); Neutrophils % 81.5 %; Nucleated Red Blood Cells % 0 %; Platelet Count 275 10^3/cmm (130-400); Red Blood Count 2.29 10^6/uL (4.1-5.3); Red Cell Distribution Width 14.5 % (12.1-15.1); White Blood Count 13.8 10^3/uL (4.0-10.0)
[2020-08-12 05:02] LABS: Alanine Aminotransferase 40 U/L (0-41); Albumin Level 2.4 g/dL (3.5-5.2); Alkaline Phosphatase 95 IU/L (40-130); Anion Gap 19.2 (5-19); Aspartate Amino Transferase 31 U/L (0-40); Blood Urea Nitrogen 63 mg/dL (8-23); Calcium 8.1 mg/dL (8.5-10.5); Carbon Dioxide 21 mmol/L (22-29); Chloride 93 mmol/L (98-107); Globulin 2.3 g/dL (1.3-4.6); Glucose 201 mg/dL (65-115); Magnesium 1.5 mg/dL (1.7-2.3); Osmolality Calculated 294 mOsm/kg (285-295); Potassium 3.2 mmol/L (3.5-5.1); Sodium 130 mmol/L (136-145); Total Bilirubin 0.3 mg/dL (0.15-1.2); Total Protein 4.7 g/dL (6.6-8.7)
[2020-08-12 05:05] LABS: Lactic Sepsis W/Reflex 0.9 mmol/L (0.5-2.2)
[2020-08-12 05:14] LABS: Procalcitonin 1.26 ng/mL (0-0.5)
[2020-08-12 05:17] LABS: Troponin 5 6HR 134.8 ng/L (0-15)
--- NOTE | 2020-08-12 08:09 | PM.CONSULT ---
Providers/Reason For Consult Consulting Physican/Specialty*: Hospitalist Reason for Consult*: Toe wound Attending Physician: Holly Yun MD Primary Care Provider: Anmol Santiago History of Present Illness History of Present Illness Levi Bonilla is a 65 year old male with past medical history of hypertension diabetes, end-stage renal disease on peritoneal dialysis, Covid pneumonia 07/2020 (was admitted in [facility] for about a week and then discharged), gout, A. fib, status post watchman device placement currently on aspirin only (off anticoagulation post watchman device placement ) hypothyroidism came in with chief complaint of acute onset of tenderness drainage sore that is appeared on his right big toe at the base just the last day and a half, he denies any injury, any insect bite, any pain, any abnormal sensation, any fever. He has longstanding diabetic peripheral neuropathy with abnormal sensory loss in both the lower extremity, Charcot's foot is a possibility. Upon arrival in the ER he was worked up for diabetic foot ulcer. He was also in A. fib with RVR in the ER. Review of Systems General: Reports: 10 or more systems reviewed and unremarkable except in HPI and below Narrative: General ROS: negative for weight changes, fever ENT ROS: negative for nasal congestion, drainage or bleeding, sore throat, dysphagia or ear pain Eyes: PERRL Hematological and Lymphatic ROS: negative for swollen glands or abnormal bleeding Endocrine ROS: negative for polyuria/polydpsia or new changes in weight Respiratory ROS: negative for cough, shortness of breath, or wheezing Cardiovascular ROS: negative for chest pain or dyspnea on exertion Gastrointestinal ROS: negative for reflux, abdominal pain, change in bowel habits, or black or bloody stools Musculoskeletal ROS: negative for back pain, neck pain, or joint pain or swelling except for current problem Neurological ROS: negative for TIA or stoke symptoms Skin: no rashes Meds/Allergies Home Medications and Allergies Home Medications Medication Instructions Recorded Confirmed Last Taken Type allopurinol 300 mg PO DAILY 08/11/20 08/11/20 08/11/20 History amlodipine 10 mg PO DAILY 08/11/20 08/11/20 08/11/20 History aspirin 81 mg PO DAILY 08/11/20 08/11/20 08/11/20 History atorvastatin 20 mg PO DAILY 08/11/20 08/11/20 08/11/20 History cephalexin 500 mg PO BID 08/11/20 08/11/20 08/11/20 History citalopram 20 mg PO BEDTIME 08/11/20 08/11/20 08/10/20 History clonidine HCl 0.1 mg PO BID 08/11/20 08/11/20 08/11/20 History cyclobenzaprine 5 mg PO Q8H PRN 08/11/20 08/11/20 Unknown History doxycycline hyclate 100 mg PO DAILY 08/11/20 08/11/20 08/11/20 History ergocalciferol (vitamin D2) 1,250 mcg PO Q7D 08/11/20 08/11/20 08/11/20 History glipizide 5 mg PO DAILY 08/11/20 08/11/20 08/11/20 History levothyroxine 150 mcg PO DAILY 08/11/20 08/11/20 08/11/20 History losartan 100 mg PO DAILY 08/11/20 08/11/20 08/10/20 History megestrol 40 mg PO DAILY 08/11/20 08/11/20 08/11/20 History metoprolol tartrate 50 mg PO BID 08/11/20 08/11/20 08/11/20 History mupirocin calcium See Rx Instructions .ROUTE .COMPLEX 08/11/20 08/11/20 Unknown History pantoprazole 40 mg PO DAILY 08/11/20 08/11/20 08/11/20 History paricalcitol [Zemplar] 1 mcg PO DAILY 08/11/20 08/11/20 08/11/20 History peritoneal dialysis solution See Rx Instructions .ROUTE .COMPLEX 08/11/20 08/11/20 08/10/20 History torsemide 100 mg PO DAILY 08/11/20 08/11/20 08/11/20 History tramadol 50 mg PO Q8H PRN 08/11/20 08/11/20 Unknown History Allergies Allergy/AdvReac Type Severity Reaction Status Date / Time No Known Allergies Allergy Verified 08/11/20 15:56 Current Medications Current Medications Generic Name Dose Route Start Last Admin Trade Name Freq PRN Reason Stop Dose Admin Heparin Sodium (Beef Lung) 5,000 unit 08/11/20 23:45 08/12/20 01:14 Heparin 5,000 Unit/Ml Inj 1 Ml SUBCUT Not Given Q12H MARIANELA Diltiazem HCl 125 mg/ Sodium 125 mls @ 0 mls/hr 08/11/20 19:45 08/12/20 03:09 Chloride IV 0 mg/hr .Q0M MARIANELA 0 mls/hr Titration Protocol Per Protocol Peritoneal Dialysis Solution 2,000 ml 08/12/20 01:00 08/12/20 02:00 Dianeal Low Ca W/2.5% Dex 2,000 Ml Bag INTRAPERIT 2,000 ml Q6H MARIANELA Administration Vitals/I&O/Wt Last Vital Signs Temp 98.1 F 08/12/20 07:01 Pulse 100 08/12/20 07:01 Resp 17 08/12/20 06:00 BP 132/83 08/12/20 07:01 Pulse Ox 97 08/12/20 06:00 08/11/20 08/12/20 08/12/20 22:59 06:59 14:59 Intake Total 4.917 / 4.917 96.750 / 101.667 350 / 350 Output Total 450 / 450 Balance 4.917 / 4.917 -353.250 / -348.333 350 / 350 Weight last 48 hrs Weight 306 lb 6.4 oz Weight 300 lb Physical Exam Narrative: EXAM NARRATIVE: Patient's right great toe was evaluated. At this point there is area of necrosis on the medial aspect of the great toe. With redness on the dorsal part of his toe. Patient stated that looks better than last night. Patient's been on antibiotics. Data Micro: Micro: Microbiology 08/11/20 18:20 Gram Stain - Final Toe - #1 08/11/20 21:42 Blood Culture - Pr eliminary Blood SPECIMEN [facility] JAY JAY 08/11/20 21:35 Blood Culture - Pr eliminary Blood SPECIMEN [facility] A&P Additional A&P Information Patient has a wound on his great toe. Plan I will defer this to Dr. Woodall and podiatry likely in an outpatient basis. I have no plans of doing any surgery on this patient at this time. Coding Level of Care Code Acute Shirt Ironer Supervisor for Breanna Aguero
[2020-08-12] MEDS: piperacillin-tazobactam 3.375 GM in sodium chloride 0.9% (plus) 50 ML IV ×2 (08:15→21:10)
[2020-08-12] MEDS: aspirin 81 mg EC Tablet PO (08:16)
[2020-08-12] MEDS: atorvastatin 40 mg Tablet 20 MG PO (08:16)
[2020-08-12] MEDS: allopurinol 300 mg Tablet PO (08:16)
[2020-08-12] MEDS: losartan 50 mg Tablet 100 MG PO (08:17)
[2020-08-12] MEDS: cloNIDine 0.1 mg Tablet PO ×2 (08:17→17:15)
[2020-08-12] MEDS: metoprolol tartrate 50 mg Tablet PO ×2 (08:17→17:16)
[2020-08-12] MEDS: levothyroxine 150 mcg Tablet PO (08:17)
[2020-08-12] MEDS: pantoprazole DR 40 mg Tablet PO ×3 (08:17→17:16)
--- NOTE | 2020-08-12 08:41 | P.PN_ITS ---
Subjective Subjective: Interval history: Chart reviewed, decreasing leukocytosis, remains quite anemic, stable renal function, had 450 mL urine output overnight. HR seems better, off cardizem drip. Just completed 2nd unit of blood this morning around 0730 so will need to recheck H/H. No need for surgical intervention per Ortho. Remains on Zosyn and vancomycin. Very pleasant, resting quietly in bed, no complaints but would like something to eat. Repeat Hg up to 7.6. Medications: Reviewed: Yes Medication Review Details: Active Medications Generic Name Dose Route Start Last Admin Trade Name Freq PRN Reason Stop Dose Admin Acetaminophen 650 mg 08/11/20 23:58 Acetaminophen 32 5 Mg Tablet PO Q6H PRN Mild/Mod Pain Or Temp >/= 101 Hydrocodone Bitart /Acetaminophen 1 tab 08/11/20 23:58 Hydrocodone-Acet aminophen 5-325 Mg Tablet PO Q4H PRN MODERATE TO SEVER E PAIN Allopurinol 300 mg 08/12/20 09:00 08/12/20 08:16 Allopurinol 300 Mg Tablet PO 300 mg DAILY MARIANELA Administration Aspirin 81 mg 08/12/20 09:00 08/12/20 08:16 Aspirin 81 Mg Ec Tablet PO 81 mg DAILY MARIANELA Administration Atorvastatin Calci um 20 mg 08/12/20 09:00 08/12/20 08:16 Atorvastatin 40 Mg Tablet PO 20 mg DAILY MARIANELA Administration Bisacodyl 10 mg 08/11/20 23:58 Bisacodyl 5 Mg T ablet PO DAILY PRN CONSTIPATION Citalopram Hydrobr omide 20 mg 08/12/20 21:00 Citalopram 20 Mg Tablet PO BEDTIME MARIANELA Clonidine HCl 0.1 mg 08/12/20 09:00 08/12/20 08:17 Clonidine 0.1 Mg Tablet PO 0.1 mg BID MARIANELA Administration Cyclobenzaprine HC l 5 mg 08/11/20 23:54 Cyclobenzaprine 10 Mg Tablet PO Q8H PRN muscle spasms Dextrose 25 ml 08/12/20 00:38 Dextrose 50% Syr shilo 50 Ml IVP ONCE PRN hypoglycemia prot ocol Protocol Dextrose 50 ml 08/12/20 00:38 Dextrose 50% Syr shilo 50 Ml IVP PRN PRN hypoglycemia prot ocol Protocol Ergocalciferol 50,000 unit 08/18/20 09:00 Ergocalciferol ( Vitamin D2) 50,000 Unit Capsule PO Q7D MARIANELA Glucagon 1 mg 08/12/20 00:38 Glucagon 1 Mg/Ml Inj 1 Ml IM ONCE PRN Adult Acute Hypog lycemia Prot. Protocol Heparin Sodium (Be ef Lung) 5,000 unit 08/11/20 23:45 08/12/20 01:14 Heparin 5,000 Un it/Ml Inj 1 Ml SUBCUT Not Given Q12H MARIANELA Diltiazem HCl 125 mg/ Sodium 125 mls @ 0 mls/h r 08/11/20 19:45 08/12/20 03:09 Chloride IV 0 mg/hr .Q0M MARIANELA 0 mls/hr Titration Protocol Per Protocol Piperacillin Sod/T azobactam 50 mls @ 12.5 mls /hr 08/12/20 08:00 08/12/20 08:15 Sod 3.375 gm/ So dium Chloride IV 12.5 mls/hr Q12H MARIANELA Administration Protocol Dextrose 500 mls @ 100 mls /hr 08/12/20 00:38 D5w IV ONCE PRN Adult Acute Hypog lycemia Prot Protocol Vancomycin HCl 2,0 00 mg/ 500 mls @ 250 mls /hr 08/13/20 20:00 Sodium Chloride IV Q48H MARIANELA Insulin Aspart 0 unit 08/12/20 08:00 Insulin Aspart 1 00 Unit/1 Ml SUBCUT WM&BEDTIME MARIANELA Protocol Levothyroxine Sodi um 150 mcg 08/12/20 09:00 08/12/20 08:17 Levothyroxine 15 0 Mcg Tablet PO 150 mcg DAILY MARIANELA Administration Losartan Potassium 100 mg 08/12/20 09:00 08/12/20 08:17 Losartan 50 Mg T ablet PO 100 mg DAILY MARIANELA Administration Megestrol Acetate 40 mg 08/12/20 09:00 Megestrol 40 Mg Tablet PO DAILY MARIANELA Metoprolol Tartrat e 50 mg 08/12/20 09:00 08/12/20 08:17 Metoprolol Tartr ate 50 Mg Tablet PO 50 mg BID MARIANELA Administration Morphine Sulfate 4 mg 08/11/20 22:52 Morphine 4 Mg/Ml Sdv 1 Ml IVP Q4H PRN SEVERE PAIN Morphine Sulfate 2 mg 08/11/20 23:58 Morphine 4 Mg/Ml Sdv 1 Ml IVP Q4H PRN SEVERE PAIN Naloxone HCl 0.1 mg 08/11/20 23:58 Naloxone 0.4 Mg/ Ml Sdv IVP Q2M PRN OPIATERV Non-Formulary Medi cation 1 mcg 08/12/20 09:00 Paricalcitol [Ze mplar] PO DAILY MARIANELA Ondansetron HCl 4 mg 08/11/20 22:52 Ondansetron 2 Mg /Ml Sdv 2 Ml IVP Q6H PRN NAUSEA AND VOMITI NG Ondansetron HCl 4 mg 08/11/20 23:58 Ondansetron 2 Mg /Ml Sdv 2 Ml IVP Q8H PRN vomiting, or N/V if npo Pantoprazole Sodiu m 40 mg 08/12/20 09:00 08/12/20 08:[address] 40 Mg Tablet PO 40 mg DAILY MARIANELA Administration Peritoneal Dialysi s Solution 2,000 ml 08/12/20 01:00 08/12/20 02:00 Dianeal Low Ca W /2.5% Dex 2,000 Ml Bag INTRAPERIT 2,000 ml Q6H MARIANELA Administration Torsemide 100 mg 08/12/20 09:00 Torsemide 20 Mg Tablet PO DAILY MARIANELA Tramadol HCl 50 mg 08/11/20 23:54 Tramadol 50 Mg T ablet PO Q8H PRN Pain No Known Allergies Allergy (Verified 08/11/20 15:56) Vitals/I&O/Wt Last Vital Signs Temp 98.1 F 08/12/20 07:01 Pulse 100 08/12/20 07:01 Resp 17 08/12/20 06:00 BP 131/76 08/12/20 08:17 Pulse Ox 97 08/12/20 06:00 08/11/20 08/12/20 08/12/20 22:59 06:59 14:59 Intake Total 4.917 / 4.917 96.750 / 101.667 350 / 350 Output Total 450 / 450 Balance 4.917 / 4.917 -353.250 / -348.333 350 / 350 Weight last 48 hrs Weight 138.981 kg Weight 136.078 kg Physical Exam Const: COMMON NORMALS: no acute distress and patient oriented x3 GENERAL APPEARANCE: cooperative and comfortable NUTRITIONAL APPEARANCE: obese morbidly obese ORIENTATION/CONSCIOUSNESS: Yes awake OTHER: -looks appropriate for age, resting quietly in bed, very pleasant HENMT: COMMON NORMALS: normocephalic, atraumatic, hearing grossly normal bilaterally and moist oral mucous membranes HEAD & SCALP: normocephalic and atraumatic Eye: COMMON NORMALS: Equal, round and reactive pupils present, EOMs intact bilaterally and conjunctivae normal CONJUNCTIVA: Yes conjunctivae normal PUPIL: Yes Equal, round and reactive pupils present Neck/C-Spine: COMMON NORMALS: full ROM GENERAL: Yes normal visual inspection and Yes trachea midline Resp: COMMON NORMALS: normal respiratory effort, No retractions, No use of accessory muscles and clear to auscultation bilaterally EFFORT & INSPECTION: Yes able to speak in complete sentences, Yes symmetric chest movement and No tachypneic AUSCULTATION: clear to auscultation bilaterally OTHER: -on RA Cardio: COMMON NORMALS: regular rate, regular rhythm, S1 normal heart sound present, S2 normal heart sound present and No murmurs present (Cardio) RATE: regular rate RHYTHM: regular rhythm HEART SOUNDS: S1 normal heart sound present and S2 normal heart sound present GI: COMMON NORMALS: Normal to inspection, nondistended, normoactive bowel sounds present, Soft to palpation and non-tender INSPECTION: Yes central obesity PALPATION: Yes Soft to palpation Extremity: COMMON NORMALS: normal to inspection, full ROM and no clubbing, cyanosis or edema; negative for no pedal edema Neuro: COMMON NORMALS: patient oriented x3, moves all extremities, no focal motor deficits and no sensory deficits noted Psych: COMMON NORMALS: mental status grossly normal, Normal thought process present, cooperative, normal affect and speech normal SPEECH: Yes normal speech THOUGHT PROCESS: Normal thought process present Skin: COMMON NORMALS: no jaundice, no petechiae and no mottling NARRATIVE SKIN EXAM: -R great toe; noted well circumscribed ulcer on medial surface with small punctate opening draining foul-smelling discharge, some erythema on dorsum of foot as well as warmth to touch Data : 08/12/20 09:46 08/12/20 04:00 Micro: Microbiology 08/11/20 18:20 Gram Stain - Final Toe - #1 08/11/20 21:42 Blood Culture - Preliminary Blood SPECIMEN COLLECTED 08/11/20 21:35 Blood Culture - Preliminary Blood SPECIMEN COLLECTED A&P Assessment and plan (1) Anemia: -acutely worsening normocytic anemia; likely anemia of chronic disease -baseline Hg appears to be around 8 -s/p 2 units of PRBCs, Hg at 6.7; repeat now-7.6 -continue to monitor H/H; transfuse additional units if needed Status: Acute Qualifiers: Anemia type: unspecified type Qualified Code(s): D64.9 - Anemia, unspecified (2) Cellulitis: -noted to have cellulitic changes involving R great toe; per imaging, possible concern for OM, noted presence of soft tissue gas -no need for surgical intervention per Ortho; consult by Dr. Coyne appreciated -continue Vanc, Zosyn -may benefit from debridement if continued foul-smelling drainage, erythema, ulceration Status: Acute Qualifiers: Laterality: right Site of cellulitis: extremity Site of cellulitis of extremity: lower extremity Qualified Code(s): L03.115 - Cellulitis of right lower limb (3) Atrial fibrillation with RVR: -off cardizem drip -HR better controlled -telemetry monitoring -continue BB -hold ASA due to acute anemia -Echo (2018): EF=55%, no RWMA, trace AR, normal PSP Status: Acute (4) Elevated troponin: -noted troponin elevation, likely type II secondary to demand ischemia from anemia and atrial fibrillation with RVR -continue BB, statin, ARB; hold ASA due to anemia Status: Acute (5) Hypothyroidism: -continue levothyroxine Status: Chronic Qualifiers: Hypothyroidism type: unspecified Qualified Code(s): E03.9 - Hypothyroidism, unspecified (6) End stage renal disease: -on PD -Nephrology consulted -continue to monitor renal function Status: Chronic (7) Diabetes: -hx of NIDDM type II -Accuchecks, ISS, hypoglycemia precautions Status: Chronic Qualifiers: Diabetes mellitus complication detail: with polyneuropathy Diabetes mellitus complication status: with neurologic complications Diabetes mellitus l socorro term insulin use: without ferry terminal supervisor use Diabetes mellitus type: type 2 Qualified Code(s): E11.42 - Type 2 diabetes mellitus with diabetic polyneuropathy (8) Gout: -continue allopurinol Status: Chronic Qualifiers: Chronicity: chronic Gout etiology: unspecified cause Gout site: unspecified site Presence 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 Qualified Code(s): M1A.9XX0 - Chronic gout, unspecified, without tophus (tophi) (9) Hypertension: -VSS; continue to monitor -continue oral antihypertensives Status: Chronic Qualifiers: Hypertension type: essential hypertension Qualified Code(s): I10 - Essential (primary) hypertension (10) Morbid obesity: -BMI-42 kg/m2 Status: Chronic Additional A&P Information -diet when appropriate -GI ppx with PPI -DVT ppx with SCDs, no AC due to bleeding risk -Dispo: home -Code status: FULL code Attestations Medical Necessity Statement*: Patient requires hospitalization for continued management of R foot cellulitis, on IV antibiotics, management of anemia with need for transfusion of blood products. Time Spent in Patient Care: Greater than 35 minutes (>than 50% of time s pent in counselling and/or direct pt care on unit) . Coding Level of Care Code Acute Dock Superintendent for Chg Fwd Exam Comprehensive Diagnoses Anemia D64.9 Anemia type: unspecified type Cellulitis L03.115 Laterality: right Site of cellulitis: extremity Site of cellulitis of extremity: lower extremity Atrial fibrillation with RVR I48.91 Elevated troponin R77.8 Hypothyroidism E03.9 Hypothyroidism type: unspecified End stage renal disease N18.6 Diabetes E11.42 Diabetes mellitus complication detail: with polyneuropathy Diabetes mellitus complication status: with neurologic complications Diabetes mellitus ferry terminal supervisor insulin use: without nursing home use Diabetes mellitus type: type 2 Gout [id number] Chronicity: chronic Gout etiology: unspecified cause Gout site: unspecified site Presence 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
[2020-08-12 09:06] LABS: Glucose Point of Care 176 mg/dL (70-110)
[2020-08-12 09:56] LABS: Hematocrit 23.2 % (42.0-52.0); Hemoglobin 7.6 g/dL (11.7-16.6)
--- NOTE | 2020-08-12 12:00 | PM.CONSULT ---
Providers/Reason For Consult Consulting Physican/Specialty*: Nephrology Reason for Consult*: mgmt of PD Attending Physician: Holly Yun MD Primary Care Provider: Anmol Santiago History of Present Illness History of Present Illness Levi Bonilla is a 65 year old male presenting with Pain and swelling of his right foot. He is known to have diabetic peripheral neuropathy, and likely Charcot foot. He presented with acute onset of tenderness and drainage on the right big toe. He denied any trauma. Initial imaging included a CT scan of the foot which demonstrated no definitive findings of osteomyelitis, there was focal soft tissue gas along the medial aspect of the great toe and marked midfoot arthrosis. He has since been started on a combination of antibiotics including vancomycin and Zosyn. He has end-stage kidney disease secondary to diabetes and hypertension. He has been on peritoneal dialysis for the last 3 years. He follows with Dr. Parker in [place]. He uses a cycler at night and has 3 exchanges and has some fluid in his belly during the day, but he does not know any other details about his dialysis prescription. Last night I started him on PD, 2 L of 2.5% solution every 6 hours, this is flowing in and flowing out nicely without any discomfort. The PD fluid looks nice and clear. His exit site of his PD catheter also looks clean and healthy. He has very mild extremity edema in the right foot near the infection, but no edema elsewhere in the body and no other symptoms of hypervolemia. No uremic symptoms. He did receive a blood transfusion last night. Review of Systems Narrative: ROS - 12 point review of systems completed per HPI and subjective assessment, this includes Constitutional: No weakness, fatigue Respiratory: No SOB on exertion, comfortable at rest CardioVasc: No chest pain, palpitations Gastrointestinal: No nausea, no vomiting Neurological: No seizures, no AMS Derm: No new rashes, lesions or wounds Immunological: No seasonal and no food allergies Meds/Allergies Home Medications and Allergies Home Medications Medication Instructions Recorded Confirmed Last Taken Type allopurinol 300 mg PO DAILY 08/11/20 08/11/20 08/11/20 History amlodipine 10 mg PO DAILY 08/11/20 08/11/20 08/11/20 History aspirin 81 mg PO DAILY 08/11/20 08/11/20 08/11/20 History atorvastatin 20 mg PO DAILY 08/11/20 08/11/2020 History cephalexin 500 mg PO BID 08/11/20 08/11/20 08/11/20 History citalopram 20 mg PO BEDTIME 08/11/20 08/11/20 08/10/20 History clonidine HCl 0.1 mg PO BID 08/11/20 08/11/20 08/11/20 History cyclobenzaprine 5 mg PO Q8H PRN 08/11/20 08/11/20 Unknown History doxycycline hyclate 100 mg PO DAILY 08/11/20 08/11/20 08/11/20 History ergocalciferol (vitamin D2) 1,250 mcg PO Q7D 08/11/20 08/11/20 08/11/20 History glipizide 5 mg PO DAILY 08/11/20 08/11/20 08/11/20 History levothyroxine 150 mcg PO DAILY 08/11/20 08/11/20 08/11/20 History losartan 100 mg PO DAILY 08/11/20 08/11/20 08/10/20 History megestrol 40 mg PO DAILY 08/11/20 08/11/20 08/11/20 History metoprolol tartrate 50 mg PO BID 08/11/20 08/11/20 08/11/20 History mupirocin calcium See Rx Instructions .ROUTE .COMPLEX 08/11/20 08/11/20 Unknown History pantoprazole 40 mg PO DAILY 08/11/20 08/11/20 08/11/20 History paricalcitol [Zemplar] 1 mcg PO DAILY 08/11/20 08/11/20 08/11/20 History peritoneal dialysis solution See Rx Instructions .ROUTE .COMPLEX 08/11/20 08/11/20 08/10/20 History torsemide 100 mg PO DAILY 08/11/20 08/11/20 08/11/20 History tramadol 50 mg PO Q8H PRN 08/11/20 08/11/20 Unknown History Allergies Allergy/AdvReac Type Severity Reaction Status Date / Time No Known Allergies Allergy Verified 08/11/20 15:56 Current Medications Current Medications Generic Name Dose Route Start Last Admin Trade Name Freq PRN Reason Stop Dose Admin Allopurinol 300 mg 08/12/20 09:00 08/12/20 08:16 Allopurinol 300 Mg Tablet PO 300 mg DAILY MARIANELA Administration Aspirin 81 mg 08/12/20 09:00 08/12/20 08:16 Aspirin 81 Mg Ec Tablet PO 81 mg DAILY MARIANELA Administration Atorvastatin Calcium 20 mg 08/12/20 09:00 08/12/20 08:16 Atorvastatin 40 Mg Tablet PO 20 mg DAILY MARIANELA Administration Clonidine HCl 0.1 mg 08/12/20 09:00 08/12/20 08:17 Clonidine 0.1 Mg Tablet PO 0.1 mg BID MARIANELA Administration Heparin Sodium (Beef Lung) 5,000 unit 08/11/20 23:45 08/12/20 01:14 Heparin 5,000 Unit/Ml Inj 1 Ml SUBCUT Not Given Q12H MARIANELA Diltiazem HCl 125 mg/ Sodium 125 mls @ 0 mls/hr 08/11/20 19:45 08/12/20 03:09 Chloride IV 0 mg/hr .Q0M MARIANELA 0 mls/hr Titration Protocol Per Protocol Piperacillin Sod/Tazobactam 50 mls @ 12.5 mls/hr 08/12/20 08:00 08/12/20 08:15 Sod 3.375 gm/ Sodium Chloride IV 12.5 mls/hr Q12H MARINAELA Administration Protocol Insulin Aspart 0 unit 08/12/20 08:00 08/12/20 08:55 Insulin Aspart 100 Unit/1 Ml SUBCUT Not Given WM&BEDTIME MARIANELA Protocol Levothyroxine Sodium 150 mcg 08/12/20 09:00 08/12/20 08:17 Levothyroxine 150 Mcg Tablet PO 150 mcg DAILY MARIANELA Administration Losartan Potassium 100 mg 08/12/20 09:00 08/12/20 08:17 Losartan 50 Mg Tablet PO 100 mg DAILY MARIANELA Administration Megestrol Acetate 40 mg 08/12/20 09:00 08/12/20 08:56 Megestrol 40 Mg Tablet PO Not Given DAILY MARIANELA Metoprolol Tartrate 50 mg 08/12/20 09:00 08/12/20 08:17 Metoprolol Tartrate 50 Mg Tablet PO 50 mg BID MARIANELA Administration Non-Formulary Medication 1 mcg 08/12/20 09:00 08/12/20 08:56 Paricalcitol [Zemplar] PO Not Given DAILY MARIANELA Pantoprazole Sodium 40 mg 08/12/20 09:00 08/12/20 09:[address] 40 Mg Tablet PO 40 mg BID MARIANELA Administration Peritoneal Dialysis Solution 2,000 ml 08/12/20 01:00 08/12/20 08:56 Dianeal Low Ca W/2.5% Dex 2,000 Ml Bag INTRAPERIT 2,000 ml Q6H MARIANELA Administration Torsemide 100 mg 08/12/20 09:00 08/12/20 09:12 Torsemide 20 Mg Tablet PO Not Given DAILY MARIANELA PFSH Acute PFSH: Medical History (Updated 08/12/20 @ 10:34 by Holly Yun MD) Atrial fibrillation, chronic Diabetes Diabetic neuropathy End stage renal disease -on peritoneal dialysis Gout Hypertension Hypothyroidism Morbid obesity Surgical History (Updated 08/12/20 @ 08:49 by Holly Yun MD) Presence of Watchman left atrial appendage closure device Vitals/I&O/Wt Last Vital Signs Temp 98.1 F 08/12/20 07:01 Pulse 77 08/12/20 09:55 Resp 23 H 08/12/20 09:55 BP 126/83 08/12/20 09:55 Pulse Ox 98 08/12/20 09:55 08/11/20 08/12/20 08/12/20 22:59 06:59 14:59 Intake Total 4.917 / 4.917 96.750 / 101.667 400 / 400 Output Total 450 / 450 0 / 0 Balance 4.917 / 4.917 -353.250 / -348.333 400 / 400 Weight last 48 hrs Weight 138.981 kg Weight 136.078 kg Physical Exam Narrative: EXAM NARRATIVE: Constitutional: Awake, conversant, jovial HEENT: Wet mucosa, no jvp, non icteric Lungs: Bilaterally clear without discernible wheeze, rales in all lung zones CVS: S1 S2, no murmurs Abdo: Soft, BS ok Ext 4: Minimal edema, peripheral perfusion with no cyanosis Neurological: Grossly non-focal Data Micro: Micro: Microbiology 08/11/20 18:20 Gram Stain - Final Toe - #1 08/11/20 21:42 Blood Culture - Pr eliminary Blood SPECIMEN [facility] JAY JAY 08/11/20 21:35 Blood Culture - Pr eliminary Blood SPECIMEN [facility] JAY JAY A&P Additional A&P Information 1. End-stage kidney disease on PD Continue PD with 2 L of 2.5% solution every 6 hours. This may be slightly on the the home prescription in terms of intensity of dialysis, however during this hospitalization this will be adequate. Dose medications for GFR less than 15 on PD 2. Right foot infection. Currently on combination antibiotics. Orthopedic input appreciated, for outpatient podiatry follow-up. 3. Anemia. Status post PRBCs. Will check iron levels with a view to potentially giving Epogen during his hospital stay. 4. Hyperphosphatemia. Typically he takes Auryxia but we do not have this on formulary, will give PhosLo. Pavel Urias MD Nephrology [phone] Patient seen and examined via telemedicine, with the assistance of the bedside RN Consult Attestations Medical Necessity Statement: eval for PD mgmt Coding Level of Care Code Acute Medical Clerk for Chg More
[2020-08-12 12:43] LABS: Glucose Point of Care 184 mg/dL (70-110)
[2020-08-12] MEDS: potassium chloride ER 20 mEq Tablet 40 MEQ PO ×2 (14:21→21:05)
[2020-08-12] MEDS: calcium acetate 667 mg Capsule 1334 MG PO (17:15)
[2020-08-12 17:30] LABS: Glucose Point of Care 202 mg/dL (70-110)
--- NOTE | 2020-08-12 18:30 | PC.NURSE ---
Performed peritoneal dialysis twice today. At 1030, drained previous installment of 2L, output was 2700, then instilled another 2L. At 1430, drained 1030 installment of 2L, output was 1900, then installed another 2L which is still dwelling. Orders to drain and dwell every 6 hours. No complications.
[2020-08-12] MEDS: citalopram 20 mg Tablet PO (21:05)
[2020-08-12 21:52] LABS: Glucose Point of Care 142 mg/dL (70-110)
[2020-08-13] VITALS (170 sets, daily range): BP systolic 105–172; BP diastolic 64–109; PULSE 74–132; RESP 0–29; TEMP 36.5–36.9; O2SAT 66–100
[2020-08-13] MEDS: metoprolol tartrate 50 mg Tablet PO ×3 (03:37→17:50)
[2020-08-13] MEDS: Dianeal low Ca w/2.5% dex 2,000 mL Bag 2000 ML INTRAPERIT ×4 (03:37→21:46)
[2020-08-13 04:36] LABS: Alanine Aminotransferase 63 U/L (0-41); Albumin Level 2.2 g/dL (3.5-5.2); Alkaline Phosphatase 107 IU/L (40-130); Aspartate Amino Transferase 60 U/L (0-40); Blood Urea Nitrogen 68 mg/dL (8-23); Calcium 8.7 mg/dL (8.5-10.5); Carbon Dioxide 21 mmol/L (22-29); Chloride 99 mmol/L (98-107); Globulin 3.6 g/dL (1.3-4.6); Glomerular Filtration Rate 9.1 mL/min (90-130); Glucose 190 mg/dL (65-115); Magnesium 1.6 mg/dL (1.7-2.3); Osmolality Calculated 303 mOsm/kg (285-295); Phosphorus 5.8 mg/dL (2.5-4.5); Sodium 134 mmol/L (136-145); Total Bilirubin 0.2 mg/dL (0.15-1.2); Total Protein 5.8 g/dL (6.6-8.7)
[2020-08-13 04:54] LABS: Anion Gap 18.1 (5-19); Potassium 4.1 mmol/L (3.5-5.1)
[2020-08-13] MEDS: PARICALCITOL 1 MCG 1 EACH PO (08:01)
[2020-08-13] MEDS: atorvastatin 40 mg Tablet 20 MG PO (08:02)
[2020-08-13] MEDS: levothyroxine 150 mcg Tablet PO (08:02)
[2020-08-13] MEDS: TORSEmide 20 mg Tablet 100 MG PO (08:02)
[2020-08-13] MEDS: cloNIDine 0.1 mg Tablet PO ×2 (08:03→17:50)
[2020-08-13] MEDS: allopurinol 300 mg Tablet PO (08:03)
[2020-08-13] MEDS: pantoprazole DR 40 mg Tablet PO ×2 (08:03→17:51)
[2020-08-13] MEDS: losartan 50 mg Tablet 100 MG PO (08:03)
[2020-08-13] MEDS: piperacillin-tazobactam 3.375 GM in sodium chloride 0.9% (plus) 50 ML IV ×2 (08:03→21:11)
[2020-08-13 08:17] LABS: Glucose Point of Care 193 mg/dL (70-110)
--- NOTE | 2020-08-13 08:17 | PM.PN ---
Subjective Subjective: Interval history: Hemodynamically stable, afebrile, had 500 mL urine output overnight. Remains on IV antibiotics. Area of purulence on right great toe more apparent today, attempted to clean around this area and cleansed with Betadine. Clean dressing applied. Patient tolerated this well as he has minimal sensation to the lower extremities. Medications: Reviewed: Yes Medication Review Details: Active Medications Generic Name Dose Route Start Last Admin Trade Name Freq PRN Reason Stop Dose Admin Acetaminophen 650 mg 08/11/20 23:58 Acetaminophen 32 5 Mg Tablet PO Q6H PRN Mild/Mod Pain Or Temp >/= 101 Hydrocodone Bitart /Acetaminophen 1 tab 08/11/20 23:58 Hydrocodone-Acet aminophen 5-325 Mg Tablet PO Q4H PRN MODERATE TO SEVER E PAIN Allopurinol 300 mg 08/12/20 09:00 08/13/20 08:03 Allopurinol 300 Mg Tablet PO 300 mg DAILY MARIANELA Administration Aspirin 81 mg 08/12/20 09:00 08/12/20 08:16 Aspirin 81 Mg Ec Tablet PO 81 mg DAILY MARIANELA Administration Atorvastatin Calci um 20 mg 08/12/20 09:00 08/13/20 08:02 Atorvastatin 40 Mg Tablet PO 20 mg DAILY MARIANELA Administration Bisacodyl 10 mg 08/11/20 23:58 Bisacodyl 5 Mg T ablet PO DAILY PRN CONSTIPATION Calcium Acetate 1,334 mg 08/12/20 18:00 08/12/20 17:15 Calcium Acetate 667 Mg Capsule PO 1,334 mg TIDWM MARIANELA Administration Citalopram Hydrobr omide 20 mg 08/12/20 21:00 08/12/20 21:05 Citalopram 20 Mg Tablet PO 20 mg BEDTIME MARIANELA Administration Clonidine HCl 0.1 mg 08/12/20 09:00 08/13/20 08:03 Clonidine 0.1 Mg Tablet PO 0.1 mg BID MARIANELA Administration Cyclobenzaprine HC l 5 mg 08/11/20 23:54 Cyclobenzaprine 10 Mg Tablet PO Q8H PRN muscle spasms Dextrose 25 ml 08/12/20 00:38 Dextrose 50% Syr shilo 50 Ml IVP ONCE PRN hypoglycemia prot ocol Protocol Dextrose 50 ml 08/12/20 00:38 Dextrose 50% Syr shilo 50 Ml IVP PRN PRN hypoglycemia prot ocol Protocol Ergocalciferol 50,000 unit 08/18/20 09:00 Ergocalciferol ( Vitamin D2) 50,000 Unit Capsule PO Q7D MARIANELA Glucagon 1 mg 08/12/20 00:38 Glucagon 1 Mg/Ml Inj 1 Ml IM ONCE PRN Adult Acute Hypog lycemia Prot. Protocol Heparin Sodium (Be ef Lung) 5,000 unit 08/11/20 23:45 08/12/20 01:14 Heparin 5,000 Un it/Ml Inj 1 Ml SUBCUT Not Given Q12H MARIANELA Diltiazem HCl 125 mg/ Sodium 125 mls @ 0 mls/h r 08/11/20 19:45 08/12/20 03:09 Chloride IV 0 mg/hr .Q0M MARIANELA 0 mls/hr Titration Protocol Per Protocol Piperacillin Sod/T azobactam 50 mls @ 12.5 mls /hr 08/12/20 08:00 08/13/20 08:03 Sod 3.375 gm/ So dium Chloride IV 12.5 mls/hr Q12H MARIANELA Administration Protocol Dextrose 500 mls @ 100 mls /hr 08/12/20 00:38 D5w IV ONCE PRN Adult Acute Hypog lycemia Prot Protocol Vancomycin HCl 2,0 00 mg/ 500 mls @ 250 mls /hr 08/13/20 20:00 Sodium Chloride IV Q48H MARIANELA Insulin Aspart 0 unit 08/12/20 08:00 08/12/20 21:40 Insulin Aspart 1 00 Unit/1 Ml SUBCUT Not Given WM&BEDTIME MARIANELA Protocol Levothyroxine Sodi um 150 mcg 08/12/20 09:00 08/13/20 08:02 Levothyroxine 15 0 Mcg Tablet PO 150 mcg DAILY MARIANELA Administration Losartan Potassium 100 mg 08/12/20 09:00 08/13/20 08:03 Losartan 50 Mg T ablet PO 100 mg DAILY MARIANELA Administration Megestrol Acetate 40 mg 08/12/20 09:00 08/13/20 08:02 Megestrol 40 Mg Tablet PO 40 mg DAILY MARIANELA Administration Metoprolol Tartrat e 50 mg 08/12/20 09:00 08/13/20 08:03 Metoprolol Tartr ate 50 Mg Tablet PO 50 mg BID MARIANELA Administration Morphine Sulfate 2 mg 08/11/20 23:58 Morphine 4 Mg/Ml Sdv 1 Ml IVP Q4H PRN SEVERE PAIN Naloxone HCl 0.1 mg 08/11/20 23:58 Naloxone 0.4 Mg/ Ml Sdv IVP Q2M PRN OPIATERV Non-Formulary Medi cation 1 mcg 08/13/20 09:00 08/13/20 08:01 Paricalcitol [Ze mplar] PO 1 mcg DAILY MARIANELA Administration Ondansetron HCl 4 mg 08/11/20 22:52 Ondansetron 2 Mg /Ml Sdv 2 Ml IVP Q6H PRN NAUSEA AND VOMITI NG Ondansetron HCl 4 mg 08/11/20 23:58 Ondansetron 2 Mg /Ml Sdv 2 Ml IVP Q8H PRN vomiting, or N/V if npo Pantoprazole Sodiu m 40 mg 08/12/20 09:00 08/13/20 08:[address] 40 Mg Tablet PO 40 mg BID MARIANELA Administration Peritoneal Dialysi s Solution 2,000 ml 08/12/20 01:00 08/13/20 03:37 Dianeal Low Ca W /2.5% Dex 2,000 Ml Bag INTRAPERIT 2,000 ml Q6H MARIANELA Administration Torsemide 100 mg 08/12/20 09:00 08/13/20 08:02 Torsemide 20 Mg Tablet PO 100 mg DAILY MARIANELA Administration Tramadol HCl 50 mg 08/11/20 23:54 Tramadol 50 Mg T ablet PO Q8H PRN Pain No Known Allergies Allergy (Verified 08/11/20 15:56) Vitals/I&O/Wt Last Vital Signs Temp 97.9 F 08/13/20 05:50 Pulse 107 H 08/13/20 06:05 Resp 16 08/13/20 06:05 BP 105/64 08/13/20 06:05 Pulse Ox 96 08/13/20 06:05 08/12/20 08/13/20 08/13/20 22:59 06:59 14:59 Intake Total 250 / 950 100 / 1050 50 / 50 Output Total 350 / 700 500 / 1200 Balance -100 / 250 -400 / -150 50 / 50 Weight last 48 hrs Weight 138.981 kg Weight 138.981 kg Weight 138.981 kg Weight 136.078 kg Physical Exam Const: COMMON NORMALS: no acute distress, patient oriented x3 and alert GENERAL APPEARANCE: cooperative and comfortable NUTRITIONAL APPEARANCE: obese morbidly obese ORIENTATION/CONSCIOUSNESS: Yes awake OTHER: -looks appropriate for age, resting quietly in bed, very pleasant HENMT: COMMON NORMALS: normocephalic, atraumatic, hearing grossly normal bilaterally and moist oral mucous membranes HEAD & SCALP: normocephalic and atraumatic Eye: COMMON NORMALS: Equal, round and reactive pupils present, EOMs intact bilaterally and conjunctivae normal CONJUNCTIVA: Yes conjunctivae normal PUPIL: Yes Equal, round and reactive pupils present Neck/C-Spine: COMMON NORMALS: full ROM GENERAL: Yes normal visual inspection and Yes trachea midline Resp: COMMON NORMALS: normal respiratory effort, No retractions, No use of accessory muscles and clear to auscultation bilaterally EFFORT & INSPECTION: Yes able to speak in complete sentences, Yes symmetric chest movement and No tachypneic AUSCULTATION: clear to auscultation bilaterally OTHER: -on RA Cardio: COMMON NORMALS: regular rate, regular rhythm, S1 normal heart sound present, S2 normal heart sound present and No murmurs present (Cardio) RATE: regular rate RHYTHM: regular rhythm HEART SOUNDS: S1 normal heart sound present and S2 normal heart sound present GI: COMMON NORMALS: Normal to inspection, nondistended, normoactive bowel sounds present, Soft to palpation and non-tender INSPECTION: Yes central obesity PALPATION: Yes Soft to palpation Extremity: COMMON NORMALS: normal to inspection, full ROM and no clubbing, cyanosis or edema; negative for no pedal edema Neuro: COMMON NORMALS: patient oriented x3, moves all extremities, no focal motor deficits and no sensory deficits noted SENSORIUM/ORIENTATION: Yes alert SPEECH: speech normal Psych: COMMON NORMALS: mental status grossly normal, Normal thought process present, cooperative, normal affect and speech normal SPEECH: Yes normal speech THOUGHT PROCESS: Normal thought process present Skin: COMMON NORMALS: no jaundice, no petechiae and no mottling NARRATIVE SKIN EXAM: -R great toe; noted well circumscribed ulcer (4 x 4 cm) on medial surface with small punctate opening draining foul-smelling discharge, some erythema on dorsum of foot as well as warmth to touch, skin desquamation evident. Erythema has improved, area of purulence seems to be coalescing. Data : 08/12/20 09:46 08/13/20 03:00 Micro: Microbiology 08/11/20 21:42 Blood Culture - Preliminary Blood NEGATIVE TO DATE 08/11/20 21:35 Blood Culture - Preliminary Blood NEGATIVE TO DATE A&P Assessment and plan (1) Anemia: -acutely worsening normocytic anemia; likely anemia of chronic disease -baseline Hg appears to be around 8 -s/p 2 units of PRBCs, Hg up to 7.6 -continue to monitor H/H; transfuse additional units if needed Status: Acute Qualifiers: Anemia type: unspecified type Qualified Code(s): D64.9 - Anemia, unspecified (2) Cellulitis: -noted to have cellulitic changes involving R great toe; per imaging, possible concern for OM, noted presence of soft tissue gas -no need for surgical intervention per Ortho; consult by Dr. Coyne appreciated -continue Vanc, Zosyn -may benefit from debridement if continued foul-smelling drainage, erythema, ulceration. Will discuss with Dr. 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 -blood cx: prelim negative -wound cx Staph aureus, gram stain negative -leukocytosis improving; continue to trend WBC Status: Acute Qualifiers: Laterality: right Site of cellulitis: extremity Site of cellulitis of extremity: lower extremity Qualified Code(s): L03.115 - Cellulitis of right lower limb (3) Atrial fibrillation with RVR: -off cardizem drip -HR better controlled -telemetry monitoring -continue BB -hold ASA due to acute anemia -Echo (2019): EF=55%, no RWMA, trace AR, normal PSP Status: Acute (4) Elevated troponin: -noted troponin elevation, likely type II secondary to demand ischemia from anemia and atrial fibrillation with RVR -continue BB, statin, ARB; hold ASA due to anemia Status: Acute (5) Hypothyroidism: -continue levothyroxine Status: Chronic Qualifiers: Hypothyroidism type: unspecified Qualified Code(s): E03.9 - Hypothyroidism, unspecified (6) End stage renal disease: -on PD -Nephrology consulted -continue to monitor renal function Status: Chronic (7) Diabetes: -hx of NIDDM type II -Accuchecks, ISS, hypoglycemia precautions Status: Chronic Qualifiers: Diabetes mellitus complication detail: with polyneuropathy Diabetes mellitus complication status: with neurologic complications Diabetes mellitus prison insulin use: without ocean transportation intermediary use Diabetes mellitus type: type 2 Qualified Code(s): E11.42 - Type 2 diabetes mellitus with diabetic polyneuropathy (8) Gout: -continue allopurinol Status: Chronic Qualifiers: Chronicity: chronic Gout etiology: unspecified cause Gout site: unspecified site Presence 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 Qualified Code(s): M1A.9XX0 - Chronic gout, unspecified, without tophus (tophi) (9) Hypertension: -VSS; continue to monitor -continue oral antihypertensives Status: Chronic Qualifiers: Hypertension type: essential hypertension Qualified Code(s): I10 - Essential (primary) hypertension (10) Morbid obesity: -BMI-42 kg/m2 Status: Chronic Additional A&P Information -diet when appropriate -GI ppx with PPI -DVT ppx with SCDs, no AC due to bleeding risk -Dispo: home -Code status: FULL code -transfer to floor for continued care Attestations Medical Necessity Statement*: Patient requires hospitalization for continued IV antibiotic treatment, monitoring of hemoglobin, given R foot cellulitis and anemia respectively. Time Spent in Patient Care: 16 - 35 minutes (>than 50% of time spent in counselling and/or direct pt care on unit). Coding Level of Care Code Acute Morning Babysitter for Chg Fwd Exam Comprehensive Diagnoses Anemia D64.9 Anemia type: unspecified type Cellulitis L03.115 Laterality: right Site of cellulitis: extremity Site of cellulitis of extremity: lower extremity Atrial fibrillation with RVR I48.91 Elevated troponin R77.8 Hypothyroidism E03.9 Hypothyroidism type: unspecified End stage renal disease N18.6 Diabetes E11.42 Diabetes mellitus complication detail: with polyneuropathy Diabetes mellitus complication status: with neurologic complications Diabetes mellitus prison insulin use: without ocean transportation intermediary use Diabetes mellitus type: type 2 Gout [id number] Chronicity: chronic Gout etiology: unspecified cause Gout site: unspecified site Presence 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
[2020-08-13] MEDS: magnesium sulfate premix 2 GM/50 ML PIGGYBACK IV (08:33)
[2020-08-13] MEDS: calcium acetate 667 mg Capsule 1334 MG PO ×3 (08:33→17:51)
--- NOTE | 2020-08-13 09:21 | PC.CHAP ---
Pastoral Care Encounter/Spiritual Assessment Type of Contact [] Declined mold puller visit [] Patient/Family/Request visit [] Outpatient visit [] Follow-up visit [] Physician referral [] Code/Alert [x] Routine visit [] Staff referral [] Actively dying [] Patient sleeping [] Family support [] [] Out of room [] Palliative care [] [] Receiving care in room [] Pre-surgical visit [] Trauma [] Long length of stay [] ICU visit [] Other: Relational/Emotional Strength [] Patient feels connected with others/family/visitors/staff [] Distress [] Loneliness/isolation [] Abandonment Spirituality of Patient [] Person of Kaitlyn [] Attends Religious of their Kaitlyn [] Believes in Prayer [] Reads Bible or Samaritan materials [] There are Spiritual issues to be addressed Job Press Feeder Interventions [x] Prayer [x] Active listening [x] Non-anxious presence [x] Spiritual/emotional support [] Crisis/trauma care [] Spiritual counseling [] Bereavement support [] Provided bereavement packet [] Provided Bible/devotional materials [] Provided toy/stuffed animal, coloring book to patient or family member [] Provided Communion [] Anointing/[place] [] Salvation [x] Completed spiritual assessment [] Other: Impact on Illness or Injury [] Angry [] Fearful [] Anxious [] Often cries [] Exhaustion [] Unable to work [] Unable to attend congregation [] Unable to walk/stand [] Unable to read [] Unable to drive [] Unable to eat/drink [] Unable to sleep [] Unable to be with family [] Patient intubated [] Other: Summary very pleasant gentleman Time spent with patient 5 min
[2020-08-13 10:32] LABS: Procalcitonin 1.13 ng/mL (0-0.5)
[2020-08-13 11:31] LABS: Glucose Point of Care 250 mg/dL (70-110)
--- NOTE | 2020-08-13 14:41 | PM.PN ---
Subjective Subjective: Interval history: Feels well. Foot pain is controlled. He tells me he had a debridement PD is going well with good in and out flow of effluent Minimal edema in the legs; no uremic Sx Medications: Reviewed: Yes Medication Review Details: Active Medications Generic Name Dose Route Start Last Admin Trade Name Freq PRN Reason Stop Dose Admin Acetaminophen 650 mg 08/11/20 23:58 Acetaminophen 32 5 Mg Tablet PO Q6H PRN Mild/Mod Pain Or Temp >/= 101 Hydrocodone Bitart /Acetaminophen 1 tab 08/11/20 23:58 Hydrocodone-Acet aminophen 5-325 Mg Tablet PO Q4H PRN MODERATE TO SEVER E PAIN Allopurinol 300 mg 08/12/20 09:00 08/13/20 08:03 Allopurinol 300 Mg Tablet PO 300 mg DAILY MARIANELA Administration Aspirin 81 mg 08/12/20 09:00 08/12/20 08:16 Aspirin 81 Mg Ec Tablet PO 81 mg DAILY MARIANELA Administration Atorvastatin Calci um 20 mg 08/12/20 09:00 08/13/20 08:02 Atorvastatin 40 Mg Tablet PO 20 mg DAILY MARIANELA Administration Bisacodyl 10 mg 08/11/20 23:58 Bisacodyl 5 Mg T ablet PO DAILY PRN CONSTIPATION Calcium Acetate 1,334 mg 08/12/20 18:00 08/12/20 17:15 Calcium Acetate 667 Mg Capsule PO 1,334 mg TIDWM MARIANELA Administration Citalopram Hydrobr omide 20 mg 08/12/20 21:00 08/12/20 21:05 Citalopram 20 Mg Tablet PO 20 mg BEDTIME MARIANELA Administration Clonidine HCl 0.1 mg 08/12/20 09:00 08/13/20 08:03 Clonidine 0.1 Mg Tablet PO 0.1 mg BID MARIANELA Administration Cyclobenzaprine HC l 5 mg 08/11/20 23:54 Cyclobenzaprine 10 Mg Tablet PO Q8H PRN muscle spasms Dextrose 25 ml 08/12/20 00:38 Dextrose 50% Syr shilo 50 Ml IVP ONCE PRN hypoglycemia prot ocol Protocol Dextrose 50 ml 08/12/20 00:38 Dextrose 50% Syr shilo 50 Ml IVP PRN PRN hypoglycemia prot ocol Protocol Ergocalciferol 50,000 unit 08/18/20 09:00 Ergocalciferol ( Vitamin D2) 50,000 Unit Capsule PO Q7D MARIANELA Glucagon 1 mg 08/12/20 00:38 Glucagon 1 Mg/Ml Inj 1 Ml IM ONCE PRN Adult Acute Hypog lycemia Prot. Protocol Heparin Sodium (Be ef Lung) 5,000 unit 08/11/20 23:45 08/12/20 01:14 Heparin 5,000 Un it/Ml Inj 1 Ml SUBCUT Not Given Q12H MARIANELA Diltiazem HCl 125 mg/ Sodium 125 mls @ 0 mls/h r 08/11/20 19:45 08/12/20 03:09 Chloride IV 0 mg/hr .Q0M MARIANELA 0 mls/hr Titration Protocol Per Protocol Piperacillin Sod/T azobactam 50 mls @ 12.5 mls /hr 08/12/20 08:00 08/13/20 08:03 Sod 3.375 gm/ So dium Chloride IV 12.5 mls/hr Q12H MARIANELA Administration Protocol Dextrose 500 mls @ 100 mls /hr 08/12/20 00:38 D5w IV ONCE PRN Adult Acute Hypog lycemia Prot Protocol Vancomycin HCl 2,0 00 mg/ 500 mls @ 250 mls /hr 08/13/20 20:00 Sodium Chloride IV Q48H MARIANELA Insulin Aspart 0 unit 08/12/20 08:00 08/12/20 21:40 Insulin Aspart 1 00 Unit/1 Ml SUBCUT Not Given WM&BEDTIME [facility] Protocol Levothyroxine Sodi um 150 mcg 08/12/20 09:00 08/13/20 08:02 Levothyroxine 15 0 Mcg Tablet PO 150 mcg DAILY MARIANELA Administration Losartan Potassium 100 mg 08/12/20 09:00 08/13/20 08:03 Losartan 50 Mg T ablet PO 100 mg DAILY MARIANELA Administration Megestrol Acetate 40 mg 08/12/20 09:00 08/13/20 08:02 Megestrol 40 Mg Tablet PO 40 mg DAILY MARIANELA Administration Metoprolol Tartrat e 50 mg 08/12/20 09:00 08/13/20 08:03 Metoprolol Tartr ate 50 Mg Tablet PO 50 mg BID MARIANELA Administration Morphine Sulfate 2 mg 08/11/20 23:58 Morphine 4 Mg/Ml Sdv 1 Ml IVP Q4H PRN SEVERE PAIN Naloxone HCl 0.1 mg 08/11/20 23:58 Naloxone 0.4 Mg/ Ml Sdv IVP Q2M PRN OPIATERV Non-Formulary Medi cation 1 mcg 08/13/20 09:00 08/13/20 08:01 Paricalcitol [Ze mplar] PO 1 mcg DAILY MARIANELA Administration Ondansetron HCl 4 mg 08/11/20 22:52 Ondansetron 2 Mg /Ml Sdv 2 Ml IVP Q6H PRN NAUSEA AND VOMITI NG Ondansetron HCl 4 mg 08/11/20 23:58 Ondansetron 2 Mg /Ml Sdv 2 Ml IVP Q8H PRN vomiting, or N/V if npo Pantoprazole Sodiu m 40 mg 08/12/20 09:00 08/13/20 08:[address] 40 Mg Tablet PO 40 mg BID MARIANELA Administration Peritoneal Dialysi s Solution 2,000 ml 08/12/20 01:00 08/13/20 03:37 Dianeal Low Ca W /2.5% Dex 2,000 Ml Bag INTRAPERIT 2,000 ml Q6H MARIANELA Administration Torsemide 100 mg 08/12/20 09:00 08/13/20 08:02 Torsemide 20 Mg Tablet PO 100 mg DAILY MARIANELA Administration Tramadol HCl 50 mg 08/11/20 23:54 Tramadol 50 Mg T ablet PO Q8H PRN Pain No Known Allergies Allergy (Verified 08/11/20 15:56) Vitals/I&O/Wt Last Vital Signs Temp 98.5 F 08/13/20 09:35 Pulse 98 08/13/20 13:40 Resp 25 H 08/13/20 13:40 BP 142/92 08/13/20 13:40 Pulse Ox 94 08/13/20 13:40 08/12/20 08/13/20 08/13/20 22:59 06:59 14:59 Intake Total 250 / 950 100 / 1050 650 / 650 Output Total 350 / 700 500 / 1200 350 / 350 Balance -100 / 250 -400 / -150 300 / 300 Weight last 48 hrs Weight 138.981 kg Weight 138.981 kg Weight 138.981 kg Weight 136.078 kg Physical Exam Narrative: EXAM NARRATIVE: Constitutional: Awake, conversant, jovial HEENT: Wet mucosa, no jvp, non icteric Lungs: Bilaterally clear without discernible wheeze, rales in all lung zones CVS: S1 S2, no murmurs Abdo: Soft, BS ok Ext 4: Minimal edema, peripheral perfusion with no cyanosis, right foot swollen Neurological: Grossly non-focal Data : 08/12/20 09:46 08/13/20 03:00 Micro: Microbiology 08/11/20 18:20 Gram Stain - Final Toe - #1 Wound Culture - Preliminary Staphylococcus aureus 08/11/20 21:42 Blood Culture - Preliminary Blood NEGATIVE TO DATE 08/11/20 21:35 Blood Culture - Preliminary Blood NEGATIVE TO DATE A&P Additional A&P Information 1. End-stage kidney disease on PD Continue PD with 2 L of 2.5% solution every 6 hours. No changes to his PD prescription today Dose medications for GFR less than 15 on PD 2. Right foot infection. Currently on combination antibiotics. Orthopedic input appreciated, for outpatient podiatry follow-up. He reports debridement to me today 3. Anemia. Status post PRBCs. - iron levels pending . 4. Hyperphosphatemia. Typically he takes Auryxia but we do not have this on formulary, PhosL on board Pavel Urias MD Nephrology [phone] Patient seen and examined via telemedicine, with the assistance of the bedside RN Attestations Medical Necessity Statement*: eval for PD mgmt Coding Level of Care Code Acute Inorganic Chemistry Professor for Breanna Aguero
--- NOTE | 2020-08-13 15:43 | PC.NURSE ---
Peritoneal dialysis drain and install performed twice. First output was 2099 and second output was 1999. Pt now has 2L dwelling until next exchange time of 2029.
[2020-08-13 16:39] LABS: Iron 28 ug/dL (59-158); Percent Saturation 19.7 % (20-50); Total Iron Binding Capacity 142 mcg/dl; Unsaturated Iron Binding 114 ug/dL (112-347)
[2020-08-13 17:19] LABS: Glucose Point of Care 163 mg/dL (70-110)
[2020-08-13 21:15] LABS: Glucose Point of Care 264 mg/dL (70-110)
[2020-08-13] MEDS: citalopram 20 mg Tablet PO (21:18)
[2020-08-14] VITALS (13 sets, daily range): BP systolic 142–177; BP diastolic 71–100; PULSE 79–112; RESP 17–20; TEMP 36.4–37.1; O2SAT 94–98
[2020-08-14] MEDS: Dianeal low Ca w/2.5% dex 2,000 mL Bag 2000 ML INTRAPERIT ×3 (03:49→17:52)
[2020-08-14 05:42] LABS: Basophils % 0.4 %; Eosinophils # 0.1 10^3/uL (0.0-0.8); Eosinophils % 1.2 %; Hematocrit 23.5 % (42.0-52.0); Hemoglobin 7.6 g/dL (11.7-16.6); Lymphocytes % 8.5 %; Mean Corpuscular HGB Conc 32.3 g/dL (30.0-36.0); Mean Corpuscular Hemoglobin 29.8 pg (28.0-34.0); Mean Corpuscular Volume 92.2 fL (80-94); Mean Platelet Volume 10.1 fL (7.4-10.4); Monocytes % 9.1 %; Neutrophils # 8.86 10^3/uL (1.8-7.7); Neutrophils % 79.5 %; Nucleated Red Blood Cells % 0 %; Platelet Count 288 10^3/cmm (130-400); Red Blood Count 2.55 10^6/uL (4.1-5.3); Red Cell Distribution Width 15.1 % (12.1-15.1); White Blood Count 11.2 10^3/uL (4.0-10.0)
[2020-08-14 06:37] LABS: Alanine Aminotransferase 62 U/L (0-41); Albumin Level 2.2 g/dL (3.5-5.2); Alkaline Phosphatase 109 IU/L (40-130); Anion Gap 17.7 (5-19); Aspartate Amino Transferase 40 U/L (0-40); Blood Urea Nitrogen 56 mg/dL (8-23); Calcium 8.8 mg/dL (8.5-10.5); Carbon Dioxide 22 mmol/L (22-29); Chloride 98 mmol/L (98-107); Globulin 3.5 g/dL (1.3-4.6); Glomerular Filtration Rate 9.1 mL/min (90-130); Glucose 182 mg/dL (65-115); Magnesium 1.6 mg/dL (1.7-2.3); Osmolality Calculated 298 mOsm/kg (285-295); Phosphorus 5.1 mg/dL (2.5-4.5); Potassium 3.7 mmol/L (3.5-5.1); Sodium 134 mmol/L (136-145); Total Bilirubin 0.2 mg/dL (0.15-1.2); Total Protein 5.7 g/dL (6.6-8.7)
[2020-08-14 06:57] LABS: Glucose Point of Care 192 mg/dL (70-110)
[2020-08-14] MEDS: calcium acetate 667 mg Capsule 1334 MG PO ×3 (08:59→17:25)
[2020-08-14] MEDS: piperacillin-tazobactam 3.375 GM in sodium chloride 0.9% (plus) 50 ML IV ×2 (09:01→20:45)
[2020-08-14] MEDS: TORSEmide 20 mg Tablet 100 MG PO (09:42)
[2020-08-14] MEDS: cloNIDine 0.1 mg Tablet PO ×2 (09:43→17:24)
[2020-08-14] MEDS: allopurinol 300 mg Tablet PO (09:43)
[2020-08-14] MEDS: atorvastatin 40 mg Tablet 20 MG PO (09:43)
--- NOTE | 2020-08-14 09:54 | PC.SOCIAL ---
IMM Update Pg. 2 of IMM updated and reviewed with patient, who verbalized understanding. Copy provided.
[2020-08-14] MEDS: levothyroxine 150 mcg Tablet PO (09:55)
[2020-08-14] MEDS: pantoprazole DR 40 mg Tablet PO ×2 (09:56→17:25)
[2020-08-14] MEDS: losartan 50 mg Tablet 100 MG PO (09:56)
[2020-08-14] MEDS: amlodipine 10 mg Tablet PO (09:56)
[2020-08-14] MEDS: metoprolol tartrate 50 mg Tablet PO ×2 (09:56→17:25)
--- NOTE | 2020-08-14 10:56 | P.PN_ITS ---
Subjective Subjective: Interval history: No new issues today. He feels quite well. The discomfort in his foot is about the same as yesterday. Is currently dressed following his debridement yesterday. Mild edema in the right lower extremity otherwise no edema in other areas of the body. Peritoneal dialysis is going well. With painless and and outflows. Medications: Reviewed: Yes Medication Review Details: Active Medications Generic Name Dose Route Start Last Admin Trade Name Freq PRN Reason Stop Dose Admin Acetaminophen 650 mg 08/11/20 23:58 Acetaminophen 32 5 Mg Tablet PO Q6H PRN Mild/Mod Pain Or Temp >/= 101 Hydrocodone Bitart /Acetaminophen 1 tab 08/11/20 23:58 Hydrocodone-Acet aminophen 5-325 Mg Tablet PO Q4H PRN MODERATE TO SEVER E PAIN Allopurinol 300 mg 08/12/20 09:00 08/13/20 08:03 Allopurinol 300 Mg Tablet PO 300 mg DAILY MARIANELA Administration Aspirin 81 mg 08/12/20 09:00 08/12/20 08:16 Aspirin 81 Mg Ec Tablet PO 81 mg DAILY MARIANELA Administration Atorvastatin Calci um 20 mg 08/12/20 09:00 08/13/20 08:02 Atorvastatin 40 Mg Tablet PO 20 mg DAILY MARIANELA Administration Bisacodyl 10 mg 08/11/20 23:58 Bisacodyl 5 Mg T ablet PO DAILY PRN CONSTIPATION Calcium Acetate 1,334 mg 08/12/20 18:00 08/12/20 17:15 Calcium Acetate 667 Mg Capsule PO 1,334 mg TIDWM MARIANELA Administration Citalopram Hydrobr omide 20 mg 08/12/20 21:00 08/12/20 21:05 Citalopram 20 Mg Tablet PO 20 mg BEDTIME MARIANELA Administration Clonidine HCl 0.1 mg 08/12/20 09:00 08/13/20 08:03 Clonidine 0.1 Mg Tablet PO 0.1 mg BID MARIANELA Administration Cyclobenzaprine HC l 5 mg 08/11/20 23:54 Cyclobenzaprine 10 Mg Tablet PO Q8H PRN muscle spasms Dextrose 25 ml 08/12/20 00:38 Dextrose 50% Syr shilo 50 Ml IVP ONCE PRN hypoglycemia prot ocol Protocol Dextrose 50 ml 08/12/20 00:38 Dextrose 50% Syr shilo 50 Ml IVP PRN PRN hypoglycemia prot ocol Protocol Ergocalciferol 50,000 unit 08/18/20 09:00 Ergocalciferol ( Vitamin D2) 50,000 Unit Capsule PO Q7D MARIANELA Glucagon 1 mg 08/12/20 00:38 Glucagon 1 Mg/Ml Inj 1 Ml IM ONCE PRN Adult Acute Hypog lycemia Prot. Protocol Heparin Sodium (Be ef Lung) 5,000 unit 08/11/20 23:45 08/12/20 01:14 Heparin 5,000 Un it/Ml Inj 1 Ml SUBCUT Not Given Q12H MARIANELA Diltiazem HCl 125 mg/ Sodium 125 mls @ 0 mls/h r 08/11/20 19:45 08/12/20 03:09 Chloride IV 0 mg/hr .Q0M MARIANELA 0 mls/hr Titration Protocol Per Protocol Piperacillin Sod/T azobactam 50 mls @ 12.5 mls /hr 08/12/20 08:00 08/13/20 08:03 Sod 3.375 gm/ So dium Chloride IV 12.5 mls/hr Q12H MARIANELA Administration Protocol Dextrose 500 mls @ 100 mls /hr 08/12/20 00:38 D5w IV ONCE PRN Adult Acute Hypog lycemia Prot Protocol Vancomycin HCl 2,0 00 mg/ 500 mls @ 250 mls /hr 08/13/20 20:00 Sodium Chloride IV Q48H MARIANELA Insulin Aspart 0 unit 08/12/20 08:00 08/12/20 21:40 Insulin Aspart 1 00 Unit/1 Ml SUBCUT Not Given WM&BEDTIME MARIANELA Protocol Levothyroxine Sodi um 150 mcg 08/12/20 09:00 08/13/20 08:02 Levothyroxine 15 0 Mcg Tablet PO 150 mcg DAILY MARIANELA Administration Losartan Potassium 100 mg 08/12/20 09:00 08/13/20 08:03 Losartan 50 Mg T ablet PO 100 mg DAILY MARIANELA Administration Megestrol Acetate 40 mg 08/12/20 09:00 08/13/20 08:02 Megestrol 40 Mg Tablet PO 40 mg DAILY MARIANELA Administration Metoprolol Tartrat e 50 mg 08/12/20 09:00 08/13/20 08:03 Metoprolol Tartr ate 50 Mg Tablet PO 50 mg BID MARIANELA Administration Morphine Sulfate 2 mg 08/11/20 23:58 Morphine 4 Mg/Ml Sdv 1 Ml IVP Q4H PRN SEVERE PAIN Naloxone HCl 0.1 mg 08/11/20 23:58 Naloxone 0.4 Mg/ Ml Sdv IVP Q2M PRN OPIATERV Non-Formulary Medi cation 1 mcg 08/13/20 09:00 08/13/20 08:01 Paricalcitol [Ze mplar] PO 1 mcg DAILY MARIANELA Administration Ondansetron HCl 4 mg 08/11/20 22:52 Ondansetron 2 Mg /Ml Sdv 2 Ml IVP Q6H PRN NAUSEA AND VOMITI NG Ondansetron HCl 4 mg 08/11/20 23:58 Ondansetron 2 Mg /Ml Sdv 2 Ml IVP Q8H PRN vomiting, or N/V if npo Pantoprazole Sodiu m 40 mg 08/12/20 09:00 08/13/20 08:[address] 40 Mg Tablet PO 40 mg BID MARIANELA Administration Peritoneal Dialysi s Solution 2,000 ml 08/12/20 01:00 08/13/20 03:37 Dianeal Low Ca W /2.5% Dex 2,000 Ml Bag INTRAPERIT 2,000 ml Q6H MARIANELA Administration Torsemide 100 mg 08/12/20 09:00 08/13/20 08:02 Torsemide 20 Mg Tablet PO 100 mg DAILY MARIANELA Administration Tramadol HCl 50 mg 08/11/20 23:54 Tramadol 50 Mg T ablet PO Q8H PRN Pain No Known Allergies Allergy (Verified 08/11/20 15:56) Vitals/I&O/Wt Last Vital Signs Temp 97.9 F 08/14/20 07:27 Pulse 112 H 08/14/20 07:27 Resp 18 08/14/20 07:27 BP 167/95 08/14/20 09:56 Pulse Ox 97 08/14/20 07:27 08/13/20 08/14/20 08/14/20 22:59 06:59 14:59 Intake Total 300 / 1050 50 / 1100 120 / 120 Output Total 550 / 900 250 / 1150 Balance -250 / 150 -200 / -50 120 / 120 Weight last 48 hrs Weight 138.981 kg Weight 138.981 kg Weight 138.981 kg Physical Exam Narrative: EXAM NARRATIVE: Constitutional: Awake, conversant, jovial HEENT: Wet mucosa, no jvp, non icteric Lungs: Bilaterally clear without discernible wheeze, rales in all lung zones CVS: S1 S2, no murmurs Abdo: Soft, BS ok Ext 4: Minimal edema, peripheral perfusion with no cyanosis, right foot swollen Neurological: Grossly non-focal Data : 08/14/20 05:00 08/14/20 05:00 Micro: Microbiology 08/11/20 18:20 Gram Stain - Final Toe - #1 Wound Culture - Preliminary Staphylococcus aureus A&P Additional A&P Information 1. End-stage kidney disease on PD Continue PD with 2 L of 2.5% solution every 6 hours. No changes to his PD prescription today Dose medications for GFR less than 15 on PD 2. Right foot infection. Currently on combination antibiotics. Orthopedic input appreciated, for outpatient podiatry follow-up. He reports debridement on Sunday 3. Anemia. Status post PRBCs. - iron low will load while in house - H/H stable 4. Hyperphosphatemia. Typically he takes Auryxia but we do not have this on formulary, PhosL on board Pavel Urias MD Nephrology [phone] Patient seen and examined via telemedicine, with the assistance of the bedside RN Attestations Medical Necessity Statement*: PD mgmt Coding Level of Care Code Acute Director Clinical Applications for Breanna Aguero
[2020-08-14 11:01] LABS: Glucose Point of Care 190 mg/dL (70-110)
--- NOTE | 2020-08-14 12:30 | PM.PN ---
Subjective Subjective: Interval history: Hypertensive, afebrile, intermittent tachycardia, remains on room air, stable renal function and hemoglobin. Had 650 mL urine output overnight. Patient seen with Dr. Woodall, bedside debridement done, will plan to additional debridement in OR tomorrow. Remains on dual IV antibiotics. Medications: Reviewed: Yes Medication Review Details: Active Medications Generic Name Dose Route Start Last Admin Trade Name Freq PRN Reason Stop Dose Admin Acetaminophen 650 mg 08/11/20 23:58 Acetaminophen 32 5 Mg Tablet PO Q6H PRN Mild/Mod Pain Or Temp >/= 101 Hydrocodone Bitart /Acetaminophen 1 tab 08/11/20 23:58 Hydrocodone-Acet aminophen 5-325 Mg Tablet PO Q4H PRN MODERATE TO SEVER E PAIN Allopurinol 300 mg 08/12/20 09:00 08/14/20 09:43 Allopurinol 300 Mg Tablet PO 300 mg DAILY MARIANELA Administration Amlodipine Besylat e 10 mg 08/14/20 09:00 08/14/20 09:56 Amlodipine 10 Mg Tablet PO 10 mg DAILY MARIANELA Administration Aspirin 81 mg 08/12/20 09:00 08/12/20 08:16 Aspirin 81 Mg Ec Tablet PO 81 mg DAILY MRAIANELA Administration Atorvastatin Calci um 20 mg 08/12/20 09:00 08/14/20 09:43 Atorvastatin 40 Mg Tablet PO 20 mg DAILY MARIANELA Administration Bisacodyl 10 mg 08/11/20 23:58 Bisacodyl 5 Mg T ablet PO DAILY PRN CONSTIPATION Calcium Acetate 1,334 mg 08/12/20 18:00 08/14/20 11:55 Calcium Acetate 667 Mg Capsule PO 1,334 mg TIDWM MARIANELA Administration Citalopram Hydrobr omide 20 mg 08/12/20 21:00 08/13/20 21:18 Citalopram 20 Mg Tablet PO 20 mg BEDTIME MARIANELA Administration Clonidine HCl 0.1 mg 08/12/20 09:00 08/14/20 09:43 Clonidine 0.1 Mg Tablet PO 0.1 mg BID MARIANELA Administration Cyclobenzaprine HC l 5 mg 08/11/20 23:54 Cyclobenzaprine 10 Mg Tablet PO Q8H PRN muscle spasms Dextrose 25 ml 08/12/20 00:38 Dextrose 50% Syr shilo 50 Ml IVP ONCE PRN hypoglycemia prot ocol Protocol Dextrose 50 ml 08/12/20 00:38 Dextrose 50% Syr shilo 50 Ml IVP PRN PRN hypoglycemia prot ocol Protocol Ergocalciferol 50,000 unit 08/18/20 09:00 Ergocalciferol ( Vitamin D2) 50,000 Unit Capsule PO Q7D MARIANELA Glucagon 1 mg 08/12/20 00:38 Glucagon 1 Mg/Ml Inj 1 Ml IM ONCE PRN Adult Acute Hypog lycemia Prot. Protocol Heparin Sodium (Be ef Lung) 5,000 unit 08/11/20 23:45 08/12/20 01:14 Heparin 5,000 Un it/Ml Inj 1 Ml SUBCUT Not Given Q12H MARIANELA Hydralazine HCl 10 mg 08/14/20 05:14 Hydralazine 20 M g/Ml Inj 1 Ml IVP Q6H PRN SYSTOLIC BLOOD NH ESSURE Diltiazem HCl 125 mg/ Sodium 125 mls @ 0 mls/h r 08/11/20 19:45 08/12/20 03:09 Chloride IV 0 mg/hr .Q0M MARIANELA 0 mls/hr Titration Protocol Per Protocol Piperacillin Sod/T azobactam 50 mls @ 12.5 mls /hr 08/12/20 08:00 08/14/20 09:01 Sod 3.375 gm/ So dium Chloride IV 12.5 mls/hr Q12H MARIANELA Administration Protocol Dextrose 500 mls @ 100 mls /hr 08/12/20 00:38 D5w IV ONCE PRN Adult Acute Hypog lycemia Prot Protocol Vancomycin HCl 2,0 00 mg/ 500 mls @ 250 mls /hr 08/13/20 20:00 08/13/20 21:10 Sodium Chloride IV 250 mls/hr Q48H MARIANELA Administration Iron Sucrose 200 m g/ Sodium 110 mls @ 220 mls /hr 08/14/20 12:00 Chloride IV 08/18/20 12:29 Q24H MARIANELA Insulin Aspart 0 unit 08/12/20 08:00 08/14/20 11:55 Insulin Aspart 1 00 Unit/1 Ml SUBCUT 4 unit WM&BEDTIME MARIANELA Administration Protocol Levothyroxine Sodi um 150 mcg 08/12/20 09:00 08/14/20 09:55 Levothyroxine 15 0 Mcg Tablet PO 150 mcg DAILY MARIANELA Administration Losartan Potassium 100 mg 08/12/20 09:00 08/14/20 09:56 Losartan 50 Mg T ablet PO 100 mg DAILY MARIANELA Administration Megestrol Acetate 40 mg 08/12/20 09:00 08/14/20 10:10 Megestrol 40 Mg Tablet PO 40 mg DAILY MARIANELA Administration Metoprolol Tartrat e 50 mg 08/12/20 09:00 08/14/20 09:56 Metoprolol Tartr ate 50 Mg Tablet PO 50 mg BID MARIANELA Administration Morphine Sulfate 2 mg 08/11/20 23:58 Morphine 4 Mg/Ml Sdv 1 Ml IVP Q4H PRN SEVERE PAIN Naloxone HCl 0.1 mg 08/11/20 23:58 Naloxone 0.4 Mg/ Ml Sdv IVP Q2M PRN OPIATERV Non-Formulary Medi cation 1 mcg 08/13/20 09:00 08/14/20 09:56 Paricalcitol [Ze mplar] PO Not Given DAILY MARIANELA Ondansetron HCl 4 mg 08/11/20 22:52 Ondansetron 2 Mg /Ml Sdv 2 Ml IVP Q6H PRN NAUSEA AND VOMITI NG Pantoprazole Sodiu m 40 mg 08/12/20 09:00 08/14/20 09:[address] 40 Mg Tablet PO 40 mg BID MARIANELA Administration Peritoneal Dialysi s Solution 2,000 ml 08/12/20 01:00 08/14/20 09:57 Dianeal Low Ca W /2.5% Dex 2,000 Ml Bag INTRAPERIT 2,000 ml Q6H MARIANELA Administration Torsemide 100 mg 08/12/20 09:00 08/14/20 09:42 Torsemide 20 Mg Tablet PO 100 mg DAILY MARIANELA Administration Tramadol HCl 50 mg 08/11/20 23:54 Tramadol 50 Mg T ablet PO Q8H PRN Pain No Known Allergies Allergy (Verified 08/11/20 15:56) Vitals/I&O/Wt Last Vital Signs Temp 97.6 F 08/14/20 11:40 Pulse 102 H 08/14/20 11:40 Resp 18 08/14/20 11:40 BP 154/83 08/14/20 11:40 Pulse Ox 98 08/14/20 11:40 08/13/20 08/14/20 08/14/20 22:59 06:59 14:59 Intake Total 300 / 1050 50 / 1100 120 / 120 Output Total 550 / 900 250 / 1150 Balance -250 / 150 -200 / -50 120 / 120 Weight last 48 hrs Weight 138.981 kg Weight 138.981 kg Weight 138.981 kg Physical Exam Const: COMMON NORMALS: no acute distress, patient oriented x3 and alert GENERAL APPEARANCE: cooperative and comfortable NUTRITIONAL APPEARANCE: obese morbidly obese ORIENTATION/CONSCIOUSNESS: Yes awake OTHER: -looks appropriate for age, resting quietly in bed, very pleasant HENMT: COMMON NORMALS: normocephalic, atraumatic, hearing grossly normal bilaterally and moist oral mucous membranes HEAD & SCALP: normocephalic and atraumatic Eye: COMMON NORMALS: Equal, round and reactive pupils present, EOMs intact bilaterally and conjunctivae normal CONJUNCTIVA: Yes conjunctivae normal PUPIL: Yes Equal, round and reactive pupils present Neck/C-Spine: COMMON NORMALS: full ROM GENERAL: Yes normal visual inspection and Yes trachea midline Resp: COMMON NORMALS: normal respiratory effort, No retractions, No use of accessory muscles and clear to auscultation bilaterally EFFORT & INSPECTION: Yes able to speak in complete sentences, Yes symmetric chest movement and No tachypneic AUSCULTATION: clear to auscultation bilaterally OTHER: -on RA Cardio: COMMON NORMALS: regular rate, regular rhythm, S1 normal heart sound present, S2 normal heart sound present and No murmurs present (Cardio) RATE: regular rate RHYTHM: regular rhythm HEART SOUNDS: S1 normal heart sound present and S2 normal heart sound present GI: COMMON NORMALS: Normal to inspection, nondistended, normoactive bowel sounds present, Soft to palpation and non-tender INSPECTION: Yes central obesity PALPATION: Yes Soft to palpation Extremity: COMMON NORMALS: normal to inspection, full ROM and no clubbing, cyanosis or edema; negative for no pedal edema Neuro: COMMON NORMALS: patient oriented x3, moves all extremities, no focal motor deficits and no sensory deficits noted SENSORIUM/ORIENTATION: Yes alert SPEECH: speech normal Psych: COMMON NORMALS: mental status grossly normal, Normal thought process present, cooperative, normal affect and speech normal SPEECH: Yes normal speech THOUGHT PROCESS: Normal thought process present Skin: COMMON NORMALS: no jaundice, no petechiae and no mottling NARRATIVE SKIN EXAM: -R great toe; noted well circumscribed ulcer (4 x 4 cm) on medial surface with small punctate opening draining foul-smelling discharge, some erythema on dorsum of foot as well as warmth to touch, skin desquamation evident. Erythema has improved, area of purulence seems to be coalescing. Debrided at bedside, slough evident on wound bed, noted areas of bleeding Data : 08/14/20 05:00 08/14/20 05:00 Micro: Microbiology 08/11/20 18:20 Gram Stain - Final Toe - #1 Wound Culture - Preliminary Staphylococcus aureus A&P Assessment and plan (1) Diabetic foot ulcer associated with type 2 diabetes mellitus: -noted to have cellulitic changes involving R great toe; per imaging, possible concern for OM, noted presence of soft tissue gas -no need for surgical intervention per Ortho; consult by Dr. Coyne appreciated -continue Vanc, Zosyn -Podiatry consult by Dr. Woodall appreciated; s/p bedside debridement, will need additional surgical debridement in OR tomorrow -blood cx: prelim negative -wound cx: Staph aureus, gram stain negative -leukocytosis improving; continue to trend WBC -wound care: dressing changes with Dakins TID -strictly NWB to RLE -anticipate need for IV antibiotics penitentiary if OM -COVID-19 testing for OR especially since he was COVID-19 positive last month and required hospitalization -order arterial studies -venous duplex; no DVT in RLE Status: Acute Qualifiers: Diabetic foot ulcer location: toe Laterality: right Non-pressure ulcer stage: with necrosis of muscle Qualified Code(s): E11.621 - Type 2 diabetes mellitus with foot ulcer; L97.513 - Non-pressure chronic ulcer of other part of right foot with necrosis of muscle (2) Anemia: -acutely worsening normocytic anemia; likely anemia of chronic disease -baseline Hg appears to be around 8 -s/p 2 units of PRBCs, Hg up to 7.6 -continue to monitor H/H; transfuse additional units if needed -Iron panel noted, on IV iron replacement Status: Acute Qualifiers: Anemia type: unspecified type Qualified Code(s): D64.9 - Anemia, unspecified (3) Cellulitis: -as noted above -improving erythema, warmth Status: Acute Qualifiers: Laterality: right Site of cellulitis: extremity Site of cellulitis of extremity: lower extremity Qualified Code(s): L03.115 - Cellulitis of right lower limb (4) Atrial fibrillation with RVR: -off cardizem drip -HR better controlled -telemetry monitoring -continue BB -hold ASA due to acute anemia -Echo (2019): EF=55%, no RWMA, trace AR, normal PSP Status: Acute (5) Elevated troponin: -noted troponin elevation, likely type II secondary to demand ischemia from anemia and atrial fibrillation with RVR -continue BB, statin, ARB; hold ASA due to anemia Status: Acute (6) Hypothyroidism: -continue levothyroxine Status: Chronic Qualifiers: Hypothyroidism type: unspecified Qualified Code(s): E03.9 - Hypothyroidism, unspecified (7) End stage renal disease: -on PD -Nephrology consulted -continue to monitor renal function Status: Chronic (8) Diabetes: -hx of NIDDM type II -Accuchecks, ISS, hypoglycemia precautions Status: Chronic Qualifiers: Diabetes mellitus complication detail: with polyneuropathy Diabetes mellitus complication status: with neurologic complications Diabetes mellitus history tutor insulin use: without history tutor use Diabetes mellitus type: type 2 Qualified Code(s): E11.42 - Type 2 diabetes mellitus with diabetic polyneuropathy (9) Gout: -continue allopurinol Status: Chronic Qualifiers: Chronicity: chronic Gout etiology: unspecified cause Gout site: unspecified site Presence 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 Qualified Code(s): M1A.9XX0 - Chronic gout, unspecified, without tophus (tophi) (10) Hypertension: -VSS; continue to monitor -continue oral antihypertensives Status: Chronic Qualifiers: Hypertension type: essential hypertension Qualified Code(s): I10 - Essential (primary) hypertension (11) Morbid obesity: -BMI-42 kg/m2 Status: Chronic Additional A&P Information -renal diet; NPO after midnight -GI ppx with PPI -DVT ppx with SCDs, no AC due to bleeding risk -Dispo: home -Code status: FULL code Attestations Medical Necessity Statement*: Patient requires hospitalization for continued IV antibiotics secondary to infected R diabetic foot ulcer with associated cellulitis, needs additional surgical debridement tomorrow. Time Spent in Patient Care: 16 - 35 minutes (>than 50% of time spent in counselling and/or direct pt care on unit). Coding Level of Care Code Acute Sulfonation Equipment Operator for [facility] Fwd Exam Comprehensive Diagnoses Diabetic foot ulcer associated with type 2 diabetes mellitus E11.621; L97.513 Diabetic foot ulcer location: toe Laterality: right Non-pressure ulcer stage: with necrosis of muscle Anemia D64.9 Anemia type: unspecified type Cellulitis L03.115 Laterality: right Site of cellulitis: extremity Site of cellulitis of extremity: lower extremity Atrial fibrillation with RVR I48.91 Elevated troponin R77.8 Hypothyroidism E03.9 Hypothyroidism type: unspecified End stage renal disease N18.6 Diabetes E11.42 Diabetes mellitus complication detail: with polyneuropathy Diabetes mellitus complication status: with neurologic complications Diabetes mellitus history tutor insulin use: without penitentiary use Diabetes mellitus type: type 2 Gout [id number] Chronicity: chronic Gout etiology: unspecified cause Gout site: unspecified site Presence 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
[2020-08-14] MEDS: iron sucrose 200 MG in sodium chloride 0.9% (100 ml) 100 ML 220 MG IV (12:51)
--- NOTE | 2020-08-14 13:00 | P.CONIM_ITS ---
Providers/Reason For Consult Consulting Physican/Specialty*: Frankie Woodall D.P.M. Reason for Consult*: Right foot wound Attending Physician: Holly Yun MD Primary Care Provider: Anmol Santiago History of Present Illness History of Present Illness Levi Bonilla is a 65 year old diabetic male who reports an abrupt onset of right right foot ulceration with discoloration, redness and foul-smelling drainage. He is unaware of its source, is unsure if it was a wound created by his shoes, he denies any trauma or known puncture wound. Patient recently discharged from [facility] secondary to COVID-19 infection. Patient is very pleasant, subjectively feels well denies fevers or chills. Denies any pain secondary to neuropathy to the right foot. He denies history of previous wounds taking greater than 3 weeks to heal or previous foot infections, no history of amputation secondary to diabetic infection, no history of revascularization of lower extremities. Lives with his . Medical history of renal failure he is on peritoneal dialysis. Review of Systems General: Reports: 10 or more systems reviewed and unremarkable except in HPI and below Const: Denies: fever(s) or chills Card: Denies: chest pain or palpitations Resp: Denies: productive cough GI: Denies: abdominal pain, nausea or vomiting : Denies: flank pain Musc: Reports: extremity swelling, joint pain, joint stiffness, limited range of motion and deformity Skin/Breast: Reports: erythema, sores, nail changes and change in hair; Denies: rash Neuro: Reports: numbness in extremities, sensory changes and difficulty walking Psych: Denies: suicidal ideation Edmundo/Lymph: Denies: easy bruising Meds/Allergies Home Medications and Allergies Home Medications Medication Instructions Recorded Confirmed Last Taken Type allopurinol 300 mg PO DAILY 08/11/20 08/11/20 08/11/20 History amlodipine 10 mg PO DAILY 08/11/20 08/11/20 08/11/20 History aspirin 81 mg PO DAILY 08/11/20 08/11/20 08/11/20 History atorvastatin 20 mg PO DAILY 08/11/20 08/11/20 08/11/20 History cephalexin 500 mg PO BID 08/11/20 08/11/20 08/11/20 History citalopram 20 mg PO BEDTIME 08/11/20 08/11/20 08/10/20 History clonidine HCl 0.1 mg PO BID 08/11/20 08/11/20 08/11/20 History cyclobenzaprine 5 mg PO Q8H PRN 08/11/20 08/11/20 Unknown History doxycycline hyclate 100 mg PO DAILY 08/11/20 08/11/20 08/11/20 History ergocalciferol (vitamin D2) 1,250 mcg PO Q7D 08/11/20 08/11/20 08/11/20 History glipizide 5 mg PO DAILY 08/11/20 08/11/20 08/11/20 History levothyroxine 150 mcg PO DAILY 08/11/20 08/11/20 08/11/20 History losartan 100 mg PO DAILY 08/11/20 08/11/20 08/10/20 History megestrol 40 mg PO DAILY 08/11/20 08/11/20 08/11/20 History metoprolol tartrate 50 mg PO BID 08/11/20 08/11/20 08/11/20 History mupirocin calcium See Rx Instructions .ROUTE .COMPLEX 08/11/20 08/11/20 Unknown History pantoprazole 40 mg PO DAILY 08/11/20 08/11/20 08/11/20 History paricalcitol [Zemplar] 1 mcg PO DAILY 08/11/20 08/11/20 08/11/20 History peritoneal dialysis solution See Rx Instructions .ROUTE .COMPLEX 08/11/20 08/11/20 08/10/20 History torsemide 100 mg PO DAILY 08/11/20 08/11/20 08/11/20 History tramadol 50 mg PO Q8H PRN 08/11/20 08/11/20 Unknown History Allergies Allergy/AdvReac Type Severity Reaction Status Date / Time No Known Allergies Allergy Verified 08/11/20 15:56 Current Medications Current Medications Generic Name Dose Route Start Last Admin Trade Name Freq PRN Reason Stop Dose Admin Allopurinol 300 mg 08/12/20 09:00 08/14/20 09:43 Allopurinol 300 Mg Tablet PO 300 mg DAILY MARIANELA Administration Amlodipine Besylate 10 mg 08/14/20 09:00 08/14/20 09:56 Amlodipine 10 Mg Tablet PO 10 mg DAILY MARIANELA Administration Aspirin 81 mg 08/12/20 09:00 08/12/20 08:16 Aspirin 81 Mg Ec Tablet PO 81 mg DAILY MARIANELA Administration Atorvastatin Calcium 20 mg 08/12/20 09:00 08/14/20 09:43 Atorvastatin 40 Mg Tablet PO 20 mg DAILY MARIANELA Administration Calcium Acetate 1,334 mg 08/12/20 18:00 08/14/20 11:55 Calcium Acetate 667 Mg Capsule PO 1,334 mg TIDWM MARIANELA Administration Citalopram Hydrobromide 20 mg 08/12/20 21:00 08/13/20 21:18 Citalopram 20 Mg Tablet PO 20 mg BEDTIME MARIANELA Administration Clonidine HCl 0.1 mg 08/12/20 09:00 08/14/20 09:43 Clonidine 0.1 Mg Tablet PO 0.1 mg BID MARIANELA Administration Heparin Sodium (Beef Lung) 5,000 unit 08/11/20 23:45 08/12/20 01:14 Heparin 5,000 Unit/Ml Inj 1 Ml SUBCUT Not Given Q12H MARIANELA Diltiazem HCl 125 mg/ Sodium 125 mls @ 0 mls/hr 08/11/20 19:45 08/12/20 03:09 Chloride IV 0 mg/hr .Q0M MARIANELA 0 mls/hr Titration Protocol Per Protocol Piperacillin Sod/Tazobactam 50 mls @ 12.5 mls/hr 08/12/20 08:00 08/14/20 09:01 Sod 3.375 gm/ Sodium Chloride IV 12.5 mls/hr Q12H MARIANELA Administration Protocol Vancomycin HCl 2,000 mg/ 500 mls @ 250 mls/hr 08/13/20 20:00 08/13/20 21:10 Sodium Chloride IV 250 mls/hr Q48H MARIANELA Administration Insulin Aspart 0 unit 08/12/20 08:00 08/14/20 11:55 Insulin Aspart 100 Unit/1 Ml SUBCUT 4 unit WM&BEDTIME MARIANELA Administration Protocol Levothyroxine Sodium 150 mcg 08/12/20 09:00 08/14/20 09:55 Levothyroxine 150 Mcg Tablet PO 150 mcg DAILY MARIANELA Administration Losartan Potassium 100 mg 08/12/20 09:00 08/14/20 09:56 Losartan 50 Mg Tablet PO 100 mg DAILY MARIANELA Administration Megestrol Acetate 40 mg 08/12/20 09:00 08/14/20 10:10 Megestrol 40 Mg Tablet PO 40 mg DAILY MARIANELA Administration Metoprolol Tartrate 50 mg 08/12/20 09:00 08/14/20 09:56 Metoprolol Tartrate 50 Mg Tablet PO 50 mg BID MARIANELA Administration Non-Formulary Medication 1 mcg 08/13/20 09:00 08/14/20 09:56 Paricalcitol [Zemplar] PO Not Given DAILY MARIANELA Pantoprazole Sodium 40 mg 08/12/20 09:00 08/14/20 09:[address] 40 Mg Tablet PO 40 mg BID MARIANELA Administration Peritoneal Dialysis Solution 2,000 ml 08/12/20 01:00 08/14/20 09:57 Dianeal Low Ca W/2.5% Dex 2,000 Ml Bag INTRAPERIT 2,000 ml Q6H MARIANELA Administration Torsemide 100 mg 08/12/20 09:00 08/14/20 09:42 Torsemide 20 Mg Tablet PO 100 mg DAILY MARIANELA Administration PFSH Acute 2 PFSH: Medical History (Updated 08/14/20 @ 15:08 by Frankie Woodall DPM) Atrial fibrillation, chronic Diabetes Diabetic neuropathy End stage renal disease -on peritoneal dialysis Gout Hypertension Hypothyroidism Morbid obesity Surgical History (Updated 08/12/20 @ 08:49 by Holly Yun MD) Presence of Watchman left atrial appendage closure device Vitals/I&O/Wt Last Vital Signs Temp 97.6 F 08/14/20 11:40 Pulse 102 H 08/14/20 11:40 Resp 18 08/14/20 11:40 BP 154/83 08/14/20 11:40 Pulse Ox 98 08/14/20 11:40 08/13/20 08/14/20 08/14/20 22:59 06:59 14:59 Intake Total 300 / 1050 50 / 1100 240 / 240 Output Total 550 / 900 250 / 1150 Balance -250 / 150 -200 / -50 240 / 240 Weight last 48 hrs Weight 306 lb 6.4 oz Weight 306 lb 6.4 oz Weight 306 lb 6.4 oz Physical Exam 2 Narrative: EXAM NARRATIVE: GENERAL: Patient is alert and oriented ?3 and in no acute distress. The following is a focused bilateral lower extremity exam. VASCULAR: Dorsalis pedis and posterior tibial arteries faintly palpable +1 temi aterally. Capillary refill time less than 5 seconds to the distal hallux bilaterally. Calf is supple and nontender proximally and distally. Diminished hair growth at legs and feet bilaterally, no hair growth appreciated to the level to dorsal toes. +1 pitting edema to the lower extremities. Palpable +1 popliteal artery bilaterally. NEUROLOGICAL: Protective sensation intact 0/10 sites, tested with Pharr Sergei monofilament to bilateral feet. DERMATOLOGICAL: Wound to the medial aspect of the right first metatarsophalangeal joint at least Evans grade 2 measures 3 cm x 4 cm x 0.4 cm exposed to joint capsule with devitalized/necrotic wound base with malodorous purulence. Periwound erythema without proximal lymphangitic streaking at this time. Post debridement no crepitus with soft tissue palpation about the right foot. MUSCULOSKELETAL: No pain to palpation or with debridement of right foot wound secondary to neuropathy. Muscle strength is 5 out of 5 in all 3 cardinal planes to bilateral foot and ankle. Pes planus foot type bilaterally. Ankle joint dorsiflexion is to neutral bilaterally. Reducible hammertoe deformities 2 through 5 bilaterally. Mild hallux abductovalgus deformity bilaterally, hallux is not track bound. Feet w/LR Ind Top: 1. At least Evans grade 2 with concerns for grade 3 wound medial aspect of right first metatarsophalangeal joint exposed to joint capsule with purulence and malodorous gangrenous appearance. Data Micro: Micro: Microbiology 08/11/20 18:20 Gram Stain - Final Toe - #1 Wound Culture - Pr eliminary Staphylococcus aureus Other Data: Attestation for Other Data: I personally reviewed and interpreted the following: Other data: Right foot x-ray 08/11/2020 soft tissue emphysema medial aspect of right first metatarsophalangeal joint, small erosions at the head of the first metatarsal with osteomyelitis not ruled out. Age- indeterminate fracture at the base of the right fifth metatarsal. Degenerative joint disease across the tarsometatarsal joints. CT scan 08/11/2020 inconclusive for osteomyelitis, soft tissue emphysema at the medial aspect of the right first metatarsophalangeal joint. Venous duplex 08-29 negative for right lower extremity deep vein thrombosis. Wound culture taken in emergency department 08/11/2020 significant for staph aureus. White blood cell count 08/14/2020 11.2 ESR 08/11/2020 >120 mm/HR CRP 08/11/2020 175.5 Procalcitonin 1.26 ng/mL Albumin 2.2 No A1c on file GFR has remained under 10 mL/minute with elevated creatinine greater than 6.0 Arterial studies pending A&P Assessment and plan (1) End stage renal disease: Status: Chronic (2) Gangrene associated with type 2 diabetes mellitus: Status: Acute (3) Non-pressure chronic ulcer of other part of right foot with necrosis of muscle: Status: Acute Mr. Bonilla is a pleasant 65-year-old diabetic male with gas gangrene right foot, history of end-stage renal disease on peritoneal dialysis. Bedside debridement performed, debridement was sharp and excisional in nature utilizing sterile dermal curette, pickups, scissors and 10 blade, wound was debrided of devitalized soft tissue including epidermis, dermis, subcutaneous tissue down to and including joint capsule at the medial aspect of the right first metatarsophalangeal joint. Hemostasis achieved via manual pressure. No anesthesia required secondary to neuropathy. Patient will require formal surgical debridement this will be scheduled for tomorrow morning 8 AM 08/15/2020 planning on MAC anesthesia and local block. I have concerns for underlying osteomyelitis given the extent of the wound and depth on initial evaluation wound is involved to joint capsule will no further details following formal surgical debridement. Advised nonweightbearing to the right lower extremity at this time, elevate right foot while at rest. Wound swab taken in the emergency department significant for staph are as he is currently on renally dosed vancomycin and Zosyn. Plans for arterial studies to be performed to include ISAIAH/TBI/PVR, plans for infectious disease consultation, anticipating PICC line and likely wound VAC on discharge from this hospitalization for continued care outpatient. Will perform Dakin's quarter percent dressing changes wet-to-dry 3 times daily. Nursing staff to perform dressing change with Dakin's wet-to-dry every shift change and I will round daily with additional dressing change. Medicine team greatly appreciated, thank you for consultation and opportunity to take part in patient's care, podiatry will follow. Coding Level of Care Code Acute [employer] Operations Consultant for Breanna Aguero Diagnoses End stage renal disease N18.6 Gangrene associated with type 2 diabetes mellitus E11.52 Non-pressure chronic ulcer of other part of right foot with necrosis of muscle L97.513 Comment cpt 10175
--- NOTE | 2020-08-14 13:26 | PC.NURSE ---
returned phone call to Rubi
[2020-08-14] MEDS: hyDRALAzine 20 mg/mL INJ 1 mL 10 MG IVP (15:06)
--- NOTE | 2020-08-14 15:42 | USR_ITS ---
PROCEDURE INFORMATION: Exam: US Duplex Lower Extremity Arteries Or Arterial Bypass Grafts Exam date and time: 08/14/2020 3:43 PM Age: 65 years old Clinical indication: Other: Diabetic foot ulcer; Additional info: Diabetic foot ulcer, assess vasculature TECHNIQUE: Imaging protocol: Real-time ultrasound scan of the arteries of the bilateral lower extremities with 2-D reeder scale, color Doppler flow and spectral waveform analysis. Images documented and saved. COMPARISON: CT foot RT wo con* [id number] 08/11/2020 7:09 PM FINDINGS: Right common femoral artery: No occlusion or significant stenosis. Normal waveform. Right superficial femoral artery: No occlusion or significant stenosis. Normal waveform. Right popliteal artery: No occlusion or significant stenosis. Normal waveform. Right calf/foot arteries: No occlusion or significant stenosis in the visualized arteries. Normal waveforms. Right dorsalis pedis artery is not imaged secondary to presence of a wound dressing. Right ankle brachial index is 0.88. Left common femoral artery: No occlusion or significant stenosis. Normal waveform. Left superficial femoral artery: No occlusion or significant stenosis. Normal waveform. Left popliteal artery: No occlusion or significant stenosis. Normal waveform. Left calf/foot arteries: No occlusion or significant stenosis in the visualized arteries. Normal waveforms. Left ankle brachial index is 0.99. US/[place] [id number] IMPRESSION: No high-grade stenosis or arterial occlusion in the bilateral lower extremities.
[2020-08-14 17:06] LABS: Glucose Point of Care 160 mg/dL (70-110)
[2020-08-14] MEDS: citalopram 20 mg Tablet PO (20:46)
[2020-08-14 21:14] LABS: Glucose Point of Care 197 mg/dL (70-110)
[2020-08-14] MEDS: sodium hypochlorite 0.25% Btl 473 mL 1 APPLIC TOPICAL (22:33)
[2020-08-14] MEDS: cyclobenzaprine 10 mg Tablet 5 MG PO (22:59)
[2020-08-15] VITALS (14 sets, daily range): BP systolic 123–150; BP diastolic 71–93; PULSE 77–104; RESP 16–20; TEMP 36.3–37; O2SAT 94–98
[2020-08-15] MEDS: Dianeal low Ca w/2.5% dex 2,000 mL Bag 2000 ML INTRAPERIT ×4 (00:30→20:01)
[2020-08-15 05:48] LABS: Basophils % 0.4 %; Eosinophils # 0.2 10^3/uL (0.0-0.8); Eosinophils % 1.6 %; Hematocrit 23.1 % (42.0-52.0); Hemoglobin 7.5 g/dL (11.7-16.6); Lymphocytes # 1.1 10^3/uL (0.8-4.8); Lymphocytes % 11.7 %; Mean Corpuscular HGB Conc 32.5 g/dL (30.0-36.0); Mean Corpuscular Hemoglobin 29.6 pg (28.0-34.0); Mean Corpuscular Volume 91.3 fL (80-94); Mean Platelet Volume 9.8 fL (7.4-10.4); Monocytes # 1.1 10^3/uL (0.2-0.9); Monocytes % 11.3 %; Neutrophils # 7.03 10^3/uL (1.8-7.7); Neutrophils % 73.4 %; Nucleated Red Blood Cells % 0 %; Platelet Count 288 10^3/cmm (130-400); Red Blood Count 2.53 10^6/uL (4.1-5.3); Red Cell Distribution Width 14.9 % (12.1-15.1); White Blood Count 9.6 10^3/uL (4.0-10.0)
[2020-08-15 06:44] LABS: Alanine Aminotransferase 46 U/L (0-41); Albumin Level 2.2 g/dL (3.5-5.2); Alkaline Phosphatase 101 IU/L (40-130); Anion Gap 14.6 (5-19); Aspartate Amino Transferase 28 U/L (0-40); Blood Urea Nitrogen 50 mg/dL (8-23); Calcium 9.1 mg/dL (8.5-10.5); Carbon Dioxide 24 mmol/L (22-29); Chloride 99 mmol/L (98-107); Globulin 3.4 g/dL (1.3-4.6); Glomerular Filtration Rate 8.9 mL/min (90-130); Glucose 170 mg/dL (65-115); Magnesium 1.6 mg/dL (1.7-2.3); Osmolality Calculated 295 mOsm/kg (285-295); Phosphorus 4.7 mg/dL (2.5-4.5); Potassium 3.6 mmol/L (3.5-5.1); Sodium 134 mmol/L (136-145); Total Bilirubin 0.2 mg/dL (0.15-1.2); Total Protein 5.6 g/dL (6.6-8.7)
[2020-08-15 06:52] LABS: Glucose Point of Care 171 mg/dL (70-110)
[2020-08-15] MEDS: metoprolol tartrate 50 mg Tablet PO ×2 (07:52→17:40)
--- NOTE | 2020-08-15 09:07 | ANES.PREANE2 ---
Pre-Anesthetic Assessment Pre-Anesthetic Assessment: Height/Weight: Height 1.83 m Weight 138.981 kg Temp Pulse Resp BP Pulse Ox 97.6 F 82 20 H 138/71 94 08/15/20 07:22 08/15/20 07:22 08/15/20 07:22 08/15/20 07:22 08/15/20 07:22 Proposed Procedure: Operation Date: 08/15/20 09:25 Proposed Procedures p Incision And Drainage Right Foot(Right) - Frankie Woodall, DPM Was Beta Jayne taken within 24 hours: Yes Last intake: Intake Last Liquid Date 08/14/20 Last Liquid Time 23:59 Last Solid Date 08/14/20 Last Solid Time 18:00 Social: Social History: No alcohol and No tobacco Exam: Pre-Anes Outpt Exam: alert, oriented x 3, clear to auscultation bilaterally and regular rate & rhythm (Irregular) Airway: Submandibular: WNL Cervical ROM: WNL MP: 3 Additional comments: Missing some lower arch, poor condition overall Pulmonary: Pulmonary: PABLO CV/HEM: CV/HEM: Afib, Anemia, Arrythmia and PVD : : Chronic renal failure Comments: Daily peritoneal dialysis, fistula/graft LUE Hepatic: Hepatic: None reported GI: GI: GERD Metabolic: Metabolic: DM, Morbid obesity and Thyroid Musc/skel: Musc/skel: Weakness Comments: Gout, neuropathy Neuropsych: Neuropsych: None reported Anesthetic Plan: ASA status: 4 Anesthesia: MAC Risk of > 500 ml blood loss (7ml/kg in children): No Meds/Allergies Current Medications: Current Medications Generic Name Dose Route Start Last Admin Trade Name Betsey PRN Reason Stop Dose Admin Allopurinol 300 mg 08/12/20 09:00 08/14/20 09:43 Allopurinol 300 Mg Tablet PO 300 mg DAILY MARIANELA Administration Amlodipine Besylat e 10 mg 08/14/20 09:00 08/14/20 09:56 Amlodipine 10 Mg Tablet PO 10 mg DAILY MARIANELA Administration Aspirin 81 mg 08/12/20 09:00 08/12/20 08:16 Aspirin 81 Mg Ec Tablet PO 81 mg DAILY MARIANELA Administration Atorvastatin Calci um 20 mg 08/12/20 09:00 08/14/20 09:43 Atorvastatin 40 Mg Tablet PO 20 mg DAILY MARIANELA Administration Calcium Acetate 1,334 mg 08/12/20 18:00 08/14/20 17:25 Calcium Acetate 667 Mg Capsule PO 1,334 mg TIDWM MARIANELA Administration Citalopram Hydrobr omide 20 mg 08/12/20 21:00 08/14/20 20:46 Citalopram 20 Mg Tablet PO 20 mg BEDTIME MARIANELA Administration Clonidine HCl 0.1 mg 08/12/20 09:00 08/14/20 17:24 Clonidine 0.1 Mg Tablet PO 0.1 mg BID MARIANELA Administration Cyclobenzaprine HC l 5 mg 08/11/20 23:54 08/14/20 22:59 Cyclobenzaprine 10 Mg Tablet PO 5 mg Q8H PRN Administration muscle spasms Heparin Sodium (Be ef Lung) 5,000 unit 08/11/20 23:45 08/12/20 01:14 Heparin 5,000 Un it/Ml Inj 1 Ml SUBCUT Not Given Q12H MARIANELA Hydralazine HCl 10 mg 08/14/20 05:14 08/14/20 15:06 Hydralazine 20 M g/Ml Inj 1 Ml IVP 10 mg Q6H PRN Administration SYSTOLIC BLOOD MD ESSURE Diltiazem HCl 125 mg/ Sodium 125 mls @ 0 mls/h r 08/11/20 19:45 08/12/20 03:09 Chloride IV 0 mg/hr .Q0M MARIANELA 0 mls/hr Titration Protocol Per Protocol Piperacillin Sod/T azobactam 50 mls @ 12.5 mls /hr 08/12/20 08:00 08/14/20 20:45 Sod 3.375 gm/ So dium Chloride IV 12.5 mls/hr Q12H MARIANELA Administration Protocol Vancomycin HCl 2,0 00 mg/ 500 mls @ 250 mls /hr 08/13/20 20:00 08/13/20 23:10 Sodium Chloride IV Infused Q48H MARIANELA Infusion Iron Sucrose 200 m g/ Sodium 110 mls @ 220 mls /hr 08/14/20 12:00 08/14/20 13:21 Chloride IV Infused Q24H MARIANELA Infusion Insulin Aspart 0 unit 08/12/20 08:00 08/15/20 07:53 Insulin Aspart 1 00 Unit/1 Ml SUBCUT 2 unit WM&BEDTIME MARIANELA Administration Protocol Levothyroxine Sodi um 150 mcg 08/12/20 09:00 08/14/20 09:55 Levothyroxine 15 0 Mcg Tablet PO 150 mcg DAILY MARIANELA Administration Losartan Potassium 100 mg 08/12/20 09:00 08/14/20 09:56 Losartan 50 Mg T ablet PO 100 mg DAILY MARIANELA Administration Megestrol Acetate 40 mg 08/12/20 09:00 08/14/20 10:10 Megestrol 40 Mg Tablet PO 40 mg DAILY MARIANELA Administration Metoprolol Tartrat e 50 mg 08/12/20 09:00 08/15/20 07:52 Metoprolol Tartr ate 50 Mg Tablet PO 50 mg BID MARIANELA Administration Non-Formulary Medi cation 1 mcg 08/13/20 09:00 08/14/20 09:56 Paricalcitol [Ze mplar] PO Not Given DAILY MARIANELA Pantoprazole Sodiu m 40 mg 08/12/20 09:00 08/14/20 17:[address] 40 Mg Tablet PO 40 mg BID MARIANELA Administration Peritoneal Dialysi s Solution 2,000 ml 08/12/20 01:00 08/15/20 07:02 Dianeal Low Ca W /2.5% Dex 2,000 Ml Bag INTRAPERIT 2,000 ml Q6H MARIANELA Administration Sodium Hypochlorit e 1 applic 08/14/20 21:00 08/14/20 22:33 Sodium Hypochlor ite 0.25% Btl 473 Ml TOPICAL 1 applic TID MARIANELA Administration Torsemide 100 mg 08/12/20 09:00 08/14/20 09:42 Torsemide 20 Mg Tablet PO 100 mg DAILY MARIANELA Administration PFSH Anesthesia PFSH: Medical History (Updated 08/14/20 @ 15:44 by Holly Yun MD) Atrial fibrillation, chronic Diabetes Diabetic neuropathy End stage renal disease -on peritoneal dialysis Gout Hypertension Hypothyroidism Morbid obesity Surgical History (Updated 08/12/20 @ 08:49 by Holly Yun MD) Presence of Watchman left atrial appendage closure device Data Anesthesia CBC & Chem 7: 08/15/20 05:39 08/15/20 05:39 Other Labs: Laboratory Results - last 48 hr 08/13/20 08/13/20 08/13/20 03:00 03:00 11:25 WBC RBC Hgb Hct MCV MCH MCHC RDW Plt Count MPV Neut % (Auto) Lymph % (Auto) Phillips % (Auto) Eos % (Auto) Baso % (Auto) Neut # (Auto) Lymph # (Auto) Phillips # (Auto) Eos # (Auto) Baso # (Auto) Nucleated RBC % (auto) Nucleated RBCs # Sodium Potassium Chloride Carbon Dioxide Anion Gap BUN Creatinine GFR Calculation Glucose POC Glucose 250 Calculated Osmolality Calcium Phosphorus Magnesium Iron 28 L TIBC 142 % Saturation 19.7 L Unsat Iron Binding 114 Total Bilirubin AST ALT Alkaline Phosphatase Total Protein Albumin Globulin Procalcitonin 1.13 H 08/13/20 08/13/20 08/14/20 16:59 19:57 05:00 WBC RBC Hgb Hct MCV MCH MCHC RDW Plt Count MPV Neut % (Auto) Lymph % (Auto) Phillips % (Auto) Eos % (Auto) Baso % (Auto) Neut # (Auto) Lymph # (Auto) Phillips # (Auto) Eos # (Auto) Baso # (Auto) Nucleated RBC % (auto) Nucleated RBCs # Sodium 134 L Potassium 3.7 Chloride 98 Carbon Dioxide 22 Anion Gap 17.7 BUN 56 H Creatinine 6.2 H* GFR Calculation 9.1 L Glucose 182 H POC Glucose 163 264 Calculated Osmolality 298 H Calcium 8.8 Phosphorus 5.1 H Magnesium 1.6 L Iron TIBC % Saturation Unsat Iron Binding Total Bilirubin 0.2 AST 40 ALT 62 H Alkaline Phosphatase 109 Total Protein 5.7 L Albumin 2.2 L Globulin 3.5 Procalcitonin 08/14/20 08/14/20 08/14/20 05:00 06:41 10:49 WBC 11.2 H RBC 2.55 L Hgb 7.6 L Hct 23.5 L MCV 92.2 MCH 29.8 MCHC 32.3 RDW 15.1 Plt Count 288 MPV 10.1 Neut % (Auto) 79.5 Lymph % (Auto) 8.5 Phillips % (Auto) 9.1 Eos % (Auto) 1.2 Baso % (Auto) 0.4 Neut # (Auto) 8.86 H Lymph # (Auto) 1.0 Phillips # (Auto) 1.0 H Eos # (Auto) 0.1 Baso # (Auto) 0.0 Nucleated RBC % (auto) 0 Nucleated RBCs # 0.0 Sodium Potassium Chloride Carbon Dioxide Anion Gap BUN Creatinine GFR Calculation Glucose POC Glucose 192 190 Calculated Osmolality Calcium Phosphorus Magnesium Iron TIBC % Saturation Unsat Iron Binding Total Bilirubin AST ALT Alkaline Phosphatase Total Protein Albumin Globulin Procalcitonin 08/14/20 08/14/20 08/15/20 16:55 21:10 05:39 WBC RBC Hgb Hct MCV MCH MCHC RDW Plt Count MPV Neut % (Auto) Lymph % (Auto) Phillips % (Auto) Eos % (Auto) Baso % (Auto) Neut # (Auto) Lymph # (Auto) Phillips # (Auto) Eos # (Auto) Baso # (Auto) Nucleated RBC % (auto) Nucleated RBCs # Sodium 134 L Potassium 3.6 Chloride 99 Carbon Dioxide 24 Anion Gap 14.6 BUN 50 H Creatinine 6.3 H* GFR Calculation 8.9 L Glucose 170 H POC Glucose 160 197 Calculated Osmolality 295 Calcium 9.1 Phosphorus 4.7 H Magnesium 1.6 L Iron TIBC % Saturation Unsat Iron Binding Total Bilirubin 0.2 AST 28 ALT 46 H Alkaline Phosphatase 101 Total Protein 5.6 L Albumin 2.2 L Globulin 3.4 Procalcitonin 08/15/20 08/15/20 05:39 06:33 WBC 9.6 RBC 2.53 L Hgb 7.5 L Hct 23.1 L MCV 91.3 MCH 29.6 MCHC 32.5 RDW 14.9 Plt Count 288 MPV 9.8 Neut % (Auto) 73.4 Lymph % (Auto) 11.7 Phillips % (Auto) 11.3 Eos % (Auto) 1.6 Baso % (Auto) 0.4 Neut # (Auto) 7.03 Lymph # (Auto) 1.1 Phillips # (Auto) 1.1 H Eos # (Auto) 0.2 Baso # (Auto) 0.0 Nucleated RBC % (auto) 0 Nucleated RBCs # 0.0 Sodium Potassium Chloride Carbon Dioxide Anion Gap BUN Creatinine GFR Calculation Glucose POC Glucose 171 Calculated Osmolality Calcium Phosphorus Magnesium Iron TIBC % Saturation Unsat Iron Binding Total Bilirubin AST ALT Alkaline Phosphatase Total Protein Albumin Globulin Procalcitonin Micro: Microbiology 08/11/20 18:20 Gram Stain - Final Toe - #1 Wound Culture - Preliminary Staphylococcus aureus Cardiac Studies: No Data to Display
[2020-08-15] MEDS: vancomycin 1,000 MG SDV 1000 MG IRRIGATION (09:50)
--- NOTE | 2020-08-15 10:25 | PM.OP ---
Operative Report Date of procedure: August 15, 2020 Pre-op Diagnosis: Gas gangrene right foot Post-op diagnosis: same Post-op Findings: Devitalized soft tissue and bone right foot, bone involved proximal phalanx right hallux. Procedure Done: Incision and debridement of nonviable soft tissue down to and including muscle, tendon and bone with insertion of antibiotic impregnated cement spacer. CPT code 61935 and CPT code 39604 Specimens removed/disposition: Proximal phalanx base right hallux sent to microbiology for Gram stain and culture. Pathology: none sent Surgeon: Frankie Woodall D.P.M. Network Security Engineer: Jerad Anesthesia: MAC Estimated blood loss: 30 mL Tourniquet time: See intraoperative documentation IV fluids: None Urine output: None Complications: None Findings: Devitalized soft tissue down to and including bone right foot. Gouty tophi right first metatarsophalangeal joint. Condition: stable Disposition: floor Brief History: Mr. Bonilla is a 65-year-old diabetic male developed a diabetic ulceration with soft tissue emphysema at the medial aspect of his right first metatarsophalangeal joint. Recommended surgical debridement, bone biopsy and insertion of antibiotic impregnated cement spacer. Patient will also require IV antibiotics long-term he is agreeable to this. Planned procedure as above was discussed at length with approach, recovery time and risks which include pain, bleeding, numbness, persistent infection, need for further surgical debridement, antibiotic therapies and potential risk for amputation. Also risk for transfer pressure and transfer lesion, loss of function, persistent pain and need for advanced bracing or orthotics. Patient is agreeable wishes to proceed. He was met preoperatively, informed consent signed, questions answered to patient's satisfaction, no guarantees, written, expressed or implied. Initialed right lower extremity as the operative site. Procedure: Under mild sedation the patient was brought to the operating room and placed on the operating table in supine position. A timeout was performed. Anesthesia was then administered by the anesthesia service. Local anesthesia injected by myself consisting of 25 cc of 0.5% Marcaine plain and a right Tillman block fashion. Well-padded pneumatic tourniquet was applied to the right ankle. Right lower extremity was then scrubbed, prepped and draped utilizing normal aseptic technique. Right foot was elevated and tourniquet inflated to 250 mmHg, this was deflated due to venous tourniquet see intraoperative documentation for time inflated and deflated. Attention was directed to the right foot at the medial aspect of the first metatarsophalangeal joint where a wound with devitalized soft tissue was appreciated a circumferential full-thickness incision at wound margin was carried out with a #10 blade down to periosteum, this incision yielded viable skin margins with skin bleeding at the margins being appropriate this was excised and passed from operative field in total. Attention was directed to the medial aspect of the first metatarsal head as well as proximal phalanx, proximal phalanx had a dusky grayish appearance with decreased density at its base. Sagittal saw utilized to perform a transverse osteotomy of the base of the proximal phalanx this was excised and passed from operative field, bone sample was sent to microbiology for Gram stain and culture of the right hallux proximal phalanx base. Incision site was irrigated with copious amounts of sterile saline solution. All rough edges were smoothed. No further devitalized bone visualized or palpated, remaining bone had appropriate color and density. No further purulence appreciated. All devitalized soft tissue was sharply excised with pickups and a 15 blade as well as bone rongeur. Vancomycin powder introduced into the wound full-thickness followed by insertion of cement spacer impregnated with tobramycin. Post debridement wound measurements 4.5 cm x 4 cm x 0.5 cm. Dressing consisting of saline wet-to-dry utilizing sterile saline, sterile 4 x 4 gauze, Kerlix, ABD pad and Octavio wrap were applied. Patient tolerated the procedure well and was transferred to the PACU with vital signs stable and vascular status intact. Following a period of postop monitoring he will be transferred back to the floor. Anticipating no further surgical intervention during this hospitalization. Will likely require cement spacer retrieval either in clinic or removal surgically in the next 4 to 6 weeks, planning on PICC line for minimum of 6 weeks IV antibiotics.
--- NOTE | 2020-08-15 10:33 | ANE.PACU2 ---
Inpatient post-anesthesia follow up: Airway intact: Yes Vital signs: Temperature 98.1 F Pulse Rate [Monito r] 89 Pulse Rate 79 Respiratory Rate 16 Blood Pressure [Ri ght Arm] 123/81 Blood Pressure 134/79 Pulse Oximetry 94 Oxygen Delivery Me thod [ Room Air Current Rate & Del jose daniel] Oxygen Delivery Me thod Room Air Oxygen Flow Rate Fraction of Inspir ed Oxygen Hydration adequate: Yes Nausea and vomiting: No Pain level: 1 Mental status: Baseline
--- NOTE | 2020-08-15 10:36 | XRR_ITS ---
PROCEDURE INFORMATION: Exam: XR Right Foot Complete Exam date and time: 08/15/2020 10:36 AM Age: 65 years old Clinical indication: Pain; Foot; Right; Prior surgery; Surgery date: Post-operative (0-2 days); Surgery type: Great toe; Additional info: Post op TECHNIQUE: Imaging protocol: XR Right foot. Views: 3 or more views. COMPARISON: CT foot RT wo con* [id number] 08/11/2020 7:09 PM FINDINGS: Bones/joints: Sclerosis throughout base of big toe proximal phalanx is new since 08/11/2020 and presumably postoperative in nature and clinical correlation is requested. Erosive or cystic changes throughout the tarsal bones and metatarsal bases, unchanged. Soft tissues: Soft tissue air/gas medial to the 1st MTP joint appears reduced and area somewhat obscured by surrounding partially opaque gauze/bandage. XR/XR foot RT min 3V* [id number] IMPRESSION: Big toe postoperative appearance described.
[2020-08-15 10:57] LABS: Glucose Point of Care 135 mg/dL (70-110)
[2020-08-15] MEDS: piperacillin-tazobactam 3.375 GM in sodium chloride 0.9% (plus) 50 ML IV ×2 (11:08→20:17)
[2020-08-15] MEDS: aspirin 81 mg EC Tablet PO (11:10)
[2020-08-15] MEDS: calcium acetate 667 mg Capsule 1334 MG PO ×2 (11:10→17:40)
--- NOTE | 2020-08-15 11:19 | P.PN_ITS ---
Subjective Subjective: Interval history: Taken to the OR this morning for surgical debridement by Dr. Woodall. Hemodynamically stable, afebrile, on room air, had 750 mL urine output overnight, stable renal function and hemoglobin. Remains on dual IV antibiotics. Additional cultures including from bone sent from OR. Per discussion with Dr. Woodall following procedure noted bone involvement, and will need long-term IV antibiotics, PICC line order placed. Patient agreeable to this as he has had PICC line and IV antibiotics in the past. Medications: Reviewed: Yes Medication Review Details: Active Medications Generic Name Dose Route Start Last Admin Trade Name Freq PRN Reason Stop Dose Admin Acetaminophen 650 mg 08/11/20 23:58 Acetaminophen 32 5 Mg Tablet PO Q6H PRN Mild/Mod Pain Or Temp >/= 101 Hydrocodone Bitart /Acetaminophen 1 tab 08/11/20 23:58 Hydrocodone-Acet aminophen 5-325 Mg Tablet PO Q4H PRN MODERATE TO SEVER E PAIN Allopurinol 300 mg 08/12/20 09:00 08/14/20 09:43 Allopurinol 300 Mg Tablet PO 300 mg DAILY MARIANELA Administration Amlodipine Besylat e 10 mg 08/14/20 09:00 08/14/20 09:56 Amlodipine 10 Mg Tablet PO 10 mg DAILY MARIANELA Administration Aspirin 81 mg 08/12/20 09:00 08/15/20 11:10 Aspirin 81 Mg Ec Tablet PO 81 mg DAILY MARIANELA Administration Atorvastatin Calci um 20 mg 08/12/20 09:00 08/14/20 09:43 Atorvastatin 40 Mg Tablet PO 20 mg DAILY MARIANELA Administration Bisacodyl 10 mg 08/11/20 23:58 Bisacodyl 5 Mg T ablet PO DAILY PRN CONSTIPATION Calcium Acetate 1,334 mg 08/12/20 18:00 08/15/20 11:10 Calcium Acetate 667 Mg Capsule PO 1,334 mg TIDWM MARIANELA Administration Citalopram Hydrobr omide 20 mg 08/12/20 21:00 08/14/20 20:46 Citalopram 20 Mg Tablet PO 20 mg BEDTIME MARIANELA Administration Clonidine HCl 0.1 mg 08/12/20 09:00 08/14/20 17:24 Clonidine 0.1 Mg Tablet PO 0.1 mg BID MARIANELA Administration Cyclobenzaprine HC l 5 mg 08/11/20 23:54 08/14/20 22:59 Cyclobenzaprine 10 Mg Tablet PO 5 mg Q8H PRN Administration muscle spasms Dextrose 25 ml 08/12/20 00:38 Dextrose 50% Syr shilo 50 Ml IVP ONCE PRN hypoglycemia prot ocol Protocol Dextrose 50 ml 08/12/20 00:38 Dextrose 50% Syr shilo 50 Ml IVP PRN PRN hypoglycemia prot ocol Protocol Ergocalciferol 50,000 unit 08/18/20 09:00 Ergocalciferol ( Vitamin D2) 50,000 Unit Capsule PO Q7D MARIANELA Fentanyl 50 mcg 08/15/20 09:10 Fentanyl 50 Mcg/ Ml Inj 2ml IVP 08/16/20 09:10 Q5M PRN Pain level 6-10 P ACU Phase I Glucagon 1 mg 08/12/20 00:38 Glucagon 1 Mg/Ml Inj 1 Ml IM ONCE PRN Adult Acute Hypog lycemia Prot. Protocol Heparin Sodium (Be ef Lung) 5,000 unit 08/11/20 23:45 08/12/20 01:14 Heparin 5,000 Un it/Ml Inj 1 Ml SUBCUT Not Given Q12H MARIANELA Hydralazine HCl 10 mg 08/14/20 05:14 08/14/20 15:06 Hydralazine 20 M g/Ml Inj 1 Ml IVP 10 mg Q6H PRN Administration SYSTOLIC BLOOD AR ESSURE Diltiazem HCl 125 mg/ Sodium 125 mls @ 0 mls/h r 08/11/20 19:45 08/12/20 03:09 Chloride IV 0 mg/hr .Q0M MARIANELA 0 mls/hr Titration Protocol Per Protocol Piperacillin Sod/T azobactam 50 mls @ 12.5 mls /hr 08/12/20 08:00 08/15/20 11:08 Sod 3.375 gm/ So dium Chloride IV 12.5 mls/hr Q12H MARIANELA Administration Protocol Dextrose 500 mls @ 100 mls /hr 08/12/20 00:38 D5w IV ONCE PRN Adult Acute Hypog lycemia Prot Protocol Vancomycin HCl 2,0 00 mg/ 500 mls @ 250 mls /hr 08/13/20 20:00 08/13/20 23:10 Sodium Chloride IV Infused Q48H MARIANELA Infusion Iron Sucrose 200 m g/ Sodium 110 mls @ 220 mls /hr 08/14/20 12:00 08/14/20 13:21 Chloride IV 08/18/20 12:29 Infused Q24H MARIANELA Infusion Insulin Aspart 0 unit 08/12/20 08:00 08/15/20 07:53 Insulin Aspart 1 00 Unit/1 Ml SUBCUT 2 unit WM&BEDTIME MARIANELA Administration Protocol Levothyroxine Sodi um 150 mcg 08/12/20 09:00 08/14/20 09:55 Levothyroxine 15 0 Mcg Tablet PO 150 mcg DAILY MARIANELA Administration Losartan Potassium 100 mg 08/12/20 09:00 08/14/20 09:56 Losartan 50 Mg T ablet PO 100 mg DAILY MARIANELA Administration Megestrol Acetate 40 mg 08/12/20 09:00 08/14/20 10:10 Megestrol 40 Mg Tablet PO 40 mg DAILY MARIANELA Administration Metoprolol Tartrat e 50 mg 08/12/20 09:00 08/15/20 07:52 Metoprolol Tartr ate 50 Mg Tablet PO 50 mg BID MARIANELA Administration Morphine Sulfate 2 mg 08/11/20 23:58 Morphine 4 Mg/Ml Sdv 1 Ml IVP Q4H PRN SEVERE PAIN Naloxone HCl 0.1 mg 08/11/20 23:58 Naloxone 0.4 Mg/ Ml Sdv IVP Q2M PRN OPIATERV Non-Formulary Medi cation 1 mcg 08/13/20 09:00 08/14/20 09:56 Paricalcitol [Ze mplar] PO Not Given DAILY MARIANELA Ondansetron HCl 4 mg 08/11/20 22:52 Ondansetron 2 Mg /Ml Sdv 2 Ml IVP Q6H PRN NAUSEA AND VOMITI NG Pantoprazole Sodiu m 40 mg 08/12/20 09:00 08/14/20 17:[address] 40 Mg Tablet PO 40 mg BID MARIANELA Administration Peritoneal Dialysi s Solution 2,000 ml 08/12/20 01:00 08/15/20 07:02 Dianeal Low Ca W /2.5% Dex 2,000 Ml Bag INTRAPERIT 2,000 ml Q6H MARIANELA Administration Sodium Hypochlorit e 1 applic 08/14/20 21:00 08/14/20 22:33 Sodium Hypochlor ite 0.25% Btl 473 Ml TOPICAL 1 applic TID MARIANELA Administration Torsemide 100 mg 08/12/20 09:00 12/05/20 09:42 Torsemide 20 Mg Tablet PO 100 mg DAILY MARIANELA Administration Tramadol HCl 50 mg 08/11/20 23:54 Tramadol 50 Mg T ablet PO Q8H PRN Pain No Known Allergies Allergy (Verified 08/11/20 15:56) Vitals/I&O/Wt Last Vital Signs Temp 97.3 F L 08/15/20 11:04 Pulse 77 08/15/20 11:04 Resp 16 08/15/20 11:04 BP 147/83 08/15/20 11:04 Pulse Ox 95 08/15/20 11:04 08/14/20 08/15/20 08/15/20 22:59 06:59 14:59 Intake Total 420 / 820 50 / 870 Output Total 300 / 700 450 / 1150 Balance 120 / 120 -400 / -280 Weight last 48 hrs Weight 138.981 kg Weight 138.981 kg Physical Exam Const: COMMON NORMALS: no acute distress, patient oriented x3 and alert GENERAL APPEARANCE: cooperative and comfortable NUTRITIONAL APPEARANCE: obese morbidly obese ORIENTATION/CONSCIOUSNESS: Yes awake OTHER: -looks appropriate for age, resting quietly in bed, very pleasant HENMT: COMMON NORMALS: normocephalic, atraumatic, hearing grossly normal bilaterally and moist oral mucous membranes HEAD & SCALP: normocephalic and atraumatic Eye: COMMON NORMALS: Equal, round and reactive pupils present, EOMs intact bilaterally and conjunctivae normal CONJUNCTIVA: Yes conjunctivae normal PUPIL: Yes Equal, round and reactive pupils present Neck/C-Spine: COMMON NORMALS: full ROM GENERAL: Yes normal visual inspection and Yes trachea midline Resp: COMMON NORMALS: normal respiratory effort, No retractions, No use of accessory muscles and clear to auscultation bilaterally EFFORT & INSPECTION: Yes able to speak in complete sentences, Yes symmetric chest movement and No tachypneic AUSCULTATION: clear to auscultation bilaterally OTHER: -on RA Cardio: COMMON NORMALS: regular rate, regular rhythm, S1 normal heart sound present, S2 normal heart sound present and No murmurs present (Cardio) RATE: regular rate RHYTHM: regular rhythm HEART SOUNDS: S1 normal heart sound present and S2 normal heart sound present GI: COMMON NORMALS: Normal to inspection, nondistended, normoactive bowel soun ds present, Soft to palpation and non-tender INSPECTION: Yes central obesity PALPATION: Yes Soft to palpation Extremity: COMMON NORMALS: normal to inspection, full ROM and no clubbing, cyanosis or edema; negative for no pedal edema Neuro: COMMON NORMALS: patient oriented x3, moves all extremities, no focal motor deficits and no sensory deficits noted SENSORIUM/ORIENTATION: Yes alert SPEECH: speech normal Psych: COMMON NORMALS: mental status grossly normal, Normal thought process present, cooperative, normal affect and speech normal SPEECH: Yes normal speech THOUGHT PROCESS: Normal thought process present Skin: COMMON NORMALS: no jaundice, no petechiae and no mottling NARRATIVE SKIN EXAM: -bulky dressing in place on R foot -chronic venous stasis dermatitis Data : 08/15/20 05:39 08/15/20 05:39 Micro: Microbiology 08/11/20 18:20 Gram Stain - Final Toe - #1 Wound Culture - Final Staphylococcus aureus Group g streptococcus A&P Assessment and plan (1) Diabetic foot ulcer associated with type 2 diabetes mellitus: -noted to have cellulitic changes involving R great toe; per imaging, possible concern for OM, noted presence of soft tissue gas -no need for surgical intervention per Ortho; consult by Dr. Coyne appreciated -continue Vanc, Zosyn -Podiatry consult by Dr. Woodall appreciated; s/p bedside debridement, s/p additional surgical debridement in OR today. Noted bone involvement so will need long term acute care registered nurse IV antibiotics, request PICC line placement. Follow up additional cultures including bone, sent from OR -blood cx: prelim negative -wound cx: Staph aureus, gram stain negative -leukocytosis improving; continue to trend WBC -wound care: dressing changes with Dakins TID -strictly NWB to RLE -anticipate need for IV antibiotics intermediate if OM -COVID-19 testing for OR especially since he was COVID-19 positive last month and required hospitalization; pending -noted arterial studies -venous duplex; no DVT in RLE Status: Acute Qualifiers: Diabetic foot ulcer location: toe Laterality: right Non-pressure ulcer stage: with necrosis of muscle Qualified Code(s): E11.621 - Type 2 diabetes mellitus with foot ulcer; L97.513 - Non-pressure chronic ulcer of other part of right foot with necrosis of muscle (2) Anemia: -acutely worsening normocytic anemia; likely anemia of chronic disease -baseline Hg appears to be around 8 -s/p 2 units of PRBCs, Hg up to 7.5-7.6 -continue to monitor H/H; transfuse additional units if needed -Iron panel noted, on IV iron replacement Status: Acute Qualifiers: Anemia type: unspecified type Qualified Code(s): D64.9 - Anemia, unspecified (3) Cellulitis: -as noted above -improving erythema, warmth Status: Acute Qualifiers: Laterality: right Site of cellulitis: extremity Site of cellulitis of extremity: lower extremity Qualified Code(s): L03.115 - Cellulitis of right lower limb (4) Atrial fibrillation with RVR: -off cardizem drip -HR better controlled -telemetry monitoring -continue BB -hold ASA due to acute anemia -Echo (2018): EF=55%, no RWMA, trace AR, normal PSP Status: Acute (5) Elevated troponin: -noted troponin elevation, likely type II secondary to demand ischemia from anemia and atrial fibrillation with RVR -continue BB, statin, ARB; hold ASA due to anemia Status: Acute (6) Hypothyroidism: -continue levothyroxine Status: Chronic Qualifiers: Hypothyroidism type: unspecified Qualified Code(s): E03.9 - Hypothyroidism, unspecified (7) End stage renal disease: -on PD -Nephrology consulted -continue to monitor renal function Status: Chronic (8) Diabetes: -hx of NIDDM type II -Accuchecks, ISS, hypoglycemia precautions Status: Chronic Qualifiers: Diabetes mellitus complication detail: with polyneuropathy Diabetes mellitus complication status: with neurologic complications Diabetes mellitus intermediate insulin use: without intermediate use Diabetes mellitus type: type 2 Qualified Code(s): E11.42 - Type 2 diabetes mellitus with diabetic polyneuropathy (9) Gout: -continue allopurinol Status: Chronic Qualifiers: Chronicity: chronic Gout etiology: unspecified cause Gout site: unspecified site Presence 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 Qualified Code(s): M1A.9XX0 - Chronic gout, unspecified, without tophus (tophi) (10) Hypertension: -VSS; continue to monitor -continue oral antihypertensives Status: Chronic Qualifiers: Hypertension type: essential hypertension Qualified Code(s): I10 - Essential (primary) hypertension (11) Morbid obesity: -BMI-42 kg/m2 Status: Chronic Additional A&P Information -renal diet -GI ppx with PPI -DVT ppx with SCDs, no AC due to bleeding risk -Dispo: home; will need home health due to IV antibiotics and wound care. is teachable and has dealt with IV antibiotics in the past -Code status: FULL code Attestations Medical Necessity Statement*: Patient requires hospitalization for continued IV antibiotics, s/p surgical debridement today, will need intermediate antibiotic treatment pending culture results. Time Spent in Patient Care: 16 - 35 minutes (>than 50% of time spent in counselling and/or direct pt care on unit) . Coding Level of Care Code Acute Soap Maker for g Fwd Exam Comprehensive Diagnoses Diabetic foot ulcer associated with type 2 diabetes mellitus E11.621; L97.513 Diabetic foot ulcer location: toe Laterality: right Non-pressure ulcer stage: with necrosis of muscle Anemia D64.9 Anemia type: unspecified type Cellulitis L03.115 Laterality: right Site of cellulitis: extremity Site of cellulitis of extremity: lower extremity Atrial fibrillation with RVR I48.91 Elevated troponin R77.8 Hypothyroidism E03.9 Hypothyroidism type: unspecified End stage renal disease N18.6 Diabetes E11.42 Diabetes mellitus complication detail: with polyneuropathy Diabetes mellitus complication status: with neurologic complications Diabetes mellitus intermediate insulin use: without intermediate use Diabetes mellitus type: type 2 Gout [id number].[id number] Chronicity: chronic Gout etiology: unspecified cause Gout site: unspecified site Presence 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
--- NOTE | 2020-08-15 11:34 | P.PN_ITS ---
Subjective Subjective: Interval history: Feels well, seen after debridement. No pain, feels comfortable Minimal edema and no other high volume Sx No uremic Sx No fever, chills Medications: Reviewed: Yes Medication Review Details: Active Medications Generic Name Dose Route Start Last Admin Trade Name Freq PRN Reason Stop Dose Admin Acetaminophen 650 mg 08/11/20 23:58 Acetaminophen 32 5 Mg Tablet PO Q6H PRN Mild/Mod Pain Or Temp >/= 101 Hydrocodone Bitart /Acetaminophen 1 tab 08/11/20 23:58 Hydrocodone-Acet aminophen 5-325 Mg Tablet PO Q4H PRN MODERATE TO SEVER E PAIN Allopurinol 300 mg 08/12/20 09:00 08/14/20 09:43 Allopurinol 300 Mg Tablet PO 300 mg DAILY MARIANELA Administration Amlodipine Besylat e 10 mg 08/14/20 09:00 08/14/20 09:56 Amlodipine 10 Mg Tablet PO 10 mg DAILY MARIANELA Administration Aspirin 81 mg 08/12/20 09:00 08/15/20 11:10 Aspirin 81 Mg Ec Tablet PO 81 mg DAILY MARIANELA Administration Atorvastatin Calci um 20 mg 08/12/20 09:00 08/14/20 09:43 Atorvastatin 40 Mg Tablet PO 20 mg DAILY MARIANELA Administration Bisacodyl 10 mg 08/11/20 23:58 Bisacodyl 5 Mg T ablet PO DAILY PRN CONSTIPATION Calcium Acetate 1,334 mg 08/12/20 18:00 08/15/20 11:10 Calcium Acetate 667 Mg Capsule PO 1,334 mg TIDWM MARIANELA Administration Citalopram Hydrobr omide 20 mg 08/12/20 21:00 08/14/20 20:46 Citalopram 20 Mg Tablet PO 20 mg BEDTIME MARIANELA Administration Clonidine HCl 0.1 mg 08/12/20 09:00 08/14/20 17:24 Clonidine 0.1 Mg Tablet PO 0.1 mg BID MARIANELA Administration Cyclobenzaprine HC l 5 mg 08/11/20 23:54 08/14/20 22:59 Cyclobenzaprine 10 Mg Tablet PO 5 mg Q8H PRN Administration muscle spasms Dextrose 25 ml 08/12/20 00:38 Dextrose 50% Syr shilo 50 Ml IVP ONCE PRN hypoglycemia prot ocol Protocol Dextrose 50 ml 08/12/20 00:38 Dextrose 50% Syr shilo 50 Ml IVP PRN PRN hypoglycemia prot ocol Protocol Ergocalciferol 50,000 unit 08/18/20 09:00 Ergocalciferol ( Vitamin D2) 50,000 Unit Capsule PO Q7D MARIANELA Fentanyl 50 mcg 08/15/20 09:10 Fentanyl 50 Mcg/ Ml Inj 2ml IVP 08/16/20 09:10 Q5M PRN Pain level 6-10 P ACU Phase I Glucagon 1 mg 08/12/20 00:38 Glucagon 1 Mg/Ml Inj 1 Ml IM ONCE PRN Adult Acute Hypog lycemia Prot. Protocol Heparin Sodium (Be ef Lung) 5,000 unit 08/11/20 23:45 08/12/20 01:14 Heparin 5,000 Un it/Ml Inj 1 Ml SUBCUT Not Given Q12H MARIANELA Hydralazine HCl 10 mg 08/14/20 05:14 08/14/20 15:06 Hydralazine 20 M g/Ml Inj 1 Ml IVP 10 mg Q6H PRN Administration SYSTOLIC BLOOD WV ESSURE Diltiazem HCl 125 mg/ Sodium 125 mls @ 0 mls/h r 08/11/20 19:45 08/12/20 03:09 Chloride IV 0 mg/hr .Q0M MARIANELA 0 mls/hr Titration Protocol Per Protocol Piperacillin Sod/T azobactam 50 mls @ 12.5 mls /hr 08/12/20 08:00 08/15/20 11:08 Sod 3.375 gm/ So dium Chloride IV 12.5 mls/hr Q12H MARIANELA Administration Protocol Dextrose 500 mls @ 100 mls /hr 08/12/20 00:38 D5w IV ONCE PRN Adult Acute Hypog lycemia Prot Protocol Vancomycin HCl 2,0 00 mg/ 500 mls @ 250 mls /hr 08/13/20 20:00 08/13/20 23:10 Sodium Chloride IV Infused Q48H MARIANELA Infusion Iron Sucrose 200 m g/ Sodium 110 mls @ 220 mls /hr 08/14/20 12:00 08/14/20 13:21 Chloride IV 08/18/20 12:29 Infused Q24H MARIANELA Infusion Insulin Aspart 0 unit 08/12/20 08:00 08/15/20 07:53 Insulin Aspart 1 00 Unit/1 Ml SUBCUT 2 unit WM&BEDTIME MARIANELA Administration Protocol Levothyroxine Sodi um 150 mcg 08/12/20 09:00 08/14/20 09:55 Levothyroxine 15 0 Mcg Tablet PO 150 mcg DAILY MARIANELA Administration Losartan Potassium 100 mg 08/12/20 09:00 08/14/20 09:56 Losartan 50 Mg T ablet PO 100 mg DAILY MARIANELA Administration Megestrol Acetate 40 mg 08/12/20 09:00 08/14/20 10:10 Megestrol 40 Mg Tablet PO 40 mg DAILY MARIANELA Administration Metoprolol Tartrat e 50 mg 08/12/20 09:00 08/15/20 07:52 Metoprolol Tartr ate 50 Mg Tablet PO 50 mg BID MARIANELA Administration Morphine Sulfate 2 mg 08/11/20 23:58 Morphine 4 Mg/Ml Sdv 1 Ml IVP Q4H PRN SEVERE PAIN Naloxone HCl 0.1 mg 08/11/20 23:58 Naloxone 0.4 Mg/ Ml Sdv IVP Q2M PRN OPIATERV Non-Formulary Medi cation 1 mcg 08/13/20 09:00 08/14/20 09:56 Paricalcitol [Ze mplar] PO Not Given DAILY [facility] Ondansetron HCl 4 mg 08/11/20 22:52 Ondansetron 2 Mg /Ml Sdv 2 Ml IVP Q6H PRN NAUSEA AND VOMITI NG Pantoprazole Sodiu m 40 mg 08/12/20 09:00 08/14/20 17:[address] 40 Mg Tablet PO 40 mg BID MARIANELA Administration Peritoneal Dialysi s Solution 2,000 ml 08/12/20 01:00 08/15/20 07:02 Dianeal Low Ca W /2.5% Dex 2,000 Ml Bag INTRAPERIT 2,000 ml Q6H MARIANELA Administration Sodium Hypochlorit e 1 applic 08/14/20 21:00 08/14/20 22:33 Sodium Hypochlor ite 0.25% Btl 473 Ml TOPICAL 1 applic TID MARIANELA Administration Torsemide 100 mg 08/12/20 09:00 08/14/20 09:42 Torsemide 20 Mg Tablet PO 100 mg DAILY MARIANELA Administration Tramadol HCl 50 mg 08/11/20 23:54 Tramadol 50 Mg T ablet PO Q8H PRN Pain No Known Allergies Allergy (Verified 08/11/20 15:56) Vitals/I&O/Wt Last Vital Signs Temp 97.3 F L 08/15/20 11:04 Pulse 77 08/15/20 11:04 Resp 16 08/15/20 11:04 BP 147/83 08/15/20 11:04 Pulse Ox 95 08/15/20 11:04 08/14/20 08/15/20 08/15/20 22:59 06:59 14:59 Intake Total 420 / 820 50 / 870 Output Total 300 / 700 450 / 1150 Balance 120 / 120 -400 / -280 Weight last 48 hrs Weight 138.981 kg Weight 138.981 kg Physical Exam Narrative: EXAM NARRATIVE: Constitutional: Awake, conversant, jovial HEENT: Wet mucosa, no jvp, non icteric Lungs: Bilaterally clear without discernible wheeze, rales in all lung zones CVS: S1 S2, no murmurs Abdo: Soft, BS ok Ext 4: Minimal edema, peripheral perfusion with no cyanosis, right foot swollen and surgical dressing noted Neurological: Grossly non-focal Data : 08/15/20 05:39 08/15/20 05:39 Micro: Microbiology 08/11/20 18:20 Gram Stain - Final Toe - #1 Wound Culture - Final Staphylococcus aureus Group g streptococcus A&P Additional A&P Information 1. End-stage kidney disease on PD Continue PD with 2 L of 2.5% solution every 6 hours. No changes to his PD prescription today Dose medications for GFR less than 15 on PD 2. Right foot infection. Currently on combination antibiotics. Orthopedic input appreciated, for outpatient podiatry follow-up. - s/p debridement - MSSA and group B strep noted 3. Anemia. Status post PRBCs. - iron low will load while in house - H/H stable - EPO 10k iu given today 4. Hyperphosphatemia. Typically he takes Auryxia but we do not have this on formulary, PhosL on board Pavel Urias MD Nephrology [phone] Patient seen and examined via telemedicine, with the assistance of the bedside RN Attestations Medical Necessity Statement*: eval for PD mgmt Coding Level of Care Code Acute Billing Analyst for Jose[facility] More
[2020-08-15] MEDS: epoetin alfa 10,000 unit/mL INJ 10000 UNIT SUBCUT (12:37)
[2020-08-15] MEDS: iron sucrose 200 MG in sodium chloride 0.9% (100 ml) 100 ML 220 MG IV (12:39)
[2020-08-15 16:11] LABS: Glucose Point of Care 209 mg/dL (70-110)
[2020-08-15] MEDS: cloNIDine 0.1 mg Tablet PO (17:40)
[2020-08-15] MEDS: pantoprazole DR 40 mg Tablet PO (17:40)
[2020-08-15] MEDS: citalopram 20 mg Tablet PO (20:23)
[2020-08-15 21:13] LABS: Vancomycin Trough 18.1 ug/mL (10-15)
[2020-08-15 21:18] LABS: Glucose Point of Care 176 mg/dL (70-110)
--- NOTE | 2020-08-15 22:08 | PC.NURSE ---
Was able to talk to the patient's dayshift nurse. She stated that she did not notice any cold and that it had some purplish during the dressing change. Will continue to monitor.
--- NOTE | 2020-08-15 22:17 | PC.NURSE ---
Reassessed the patient's toe, it appears to have better color, with good cap refill and temp is slightly better. Will continue to monitor.
[2020-08-16] VITALS (15 sets, daily range): BP systolic 123–165; BP diastolic 79–87; PULSE 79–109; RESP 17–20; TEMP 36.6–37.3; O2SAT 96–98
[2020-08-16] MEDS: sodium hypochlorite 0.25% Btl 473 mL 1 APPLIC TOPICAL ×2 (01:01→07:33)
[2020-08-16] MEDS: Dianeal low Ca w/2.5% dex 2,000 mL Bag 2000 ML INTRAPERIT ×4 (02:33→19:54)
[2020-08-16 05:40] LABS: Basophils % 0.3 %; Eosinophils # 0.1 10^3/uL (0.0-0.8); Eosinophils % 1.1 %; Hematocrit 24.7 % (42.0-52.0); Hemoglobin 7.9 g/dL (11.7-16.6); Lymphocytes # 1.2 10^3/uL (0.8-4.8); Lymphocytes % 11.1 %; Mean Corpuscular Hemoglobin 29.2 pg (28.0-34.0); Mean Corpuscular Volume 91.1 fL (80-94); Mean Platelet Volume 10.3 fL (7.4-10.4); Monocytes # 1.1 10^3/uL (0.2-0.9); Monocytes % 10.3 %; Neutrophils # 7.95 10^3/uL (1.8-7.7); Nucleated Red Blood Cells % 0 %; Platelet Count 263 10^3/cmm (130-400); Red Blood Count 2.71 10^6/uL (4.1-5.3); Red Cell Distribution Width 14.9 % (12.1-15.1); White Blood Count 10.5 10^3/uL (4.0-10.0)
--- NOTE | 2020-08-16 05:40 | NUR.SHIFT ---
Patient has tolerated PD well throughout the night. Patient has had no pain complaints. Patient's wound had slight drainage but otherwise looked good.
[2020-08-16 06:02] LABS: Blood Urea Nitrogen 45 mg/dL (8-23); Calcium 8.8 mg/dL (8.5-10.5); Carbon Dioxide 24 mmol/L (22-29); Chloride 99 mmol/L (98-107); Glomerular Filtration Rate 9.5 mL/min (90-130); Glucose 190 mg/dL (65-115); Osmolality Calculated 297 mOsm/kg (285-295); Sodium 135 mmol/L (136-145)
[2020-08-16 06:15] LABS: Anion Gap 15.8 (5-19); Potassium 3.8 mmol/L (3.5-5.1)
[2020-08-16 06:42] LABS: Glucose Point of Care 179 mg/dL (70-110)
[2020-08-16] MEDS: piperacillin-tazobactam 3.375 GM in sodium chloride 0.9% (plus) 50 ML IV ×2 (07:24→19:17)
[2020-08-16] MEDS: amlodipine 10 mg Tablet PO (07:25)
[2020-08-16] MEDS: atorvastatin 40 mg Tablet 20 MG PO (07:25)
[2020-08-16] MEDS: levothyroxine 150 mcg Tablet PO (07:26)
[2020-08-16] MEDS: pantoprazole DR 40 mg Tablet PO ×2 (07:26→17:23)
[2020-08-16] MEDS: allopurinol 300 mg Tablet PO (07:26)
[2020-08-16] MEDS: cloNIDine 0.1 mg Tablet PO ×2 (07:26→17:23)
[2020-08-16] MEDS: losartan 50 mg Tablet 100 MG PO (07:26)
[2020-08-16] MEDS: aspirin 81 mg EC Tablet PO (07:27)
[2020-08-16] MEDS: metoprolol tartrate 50 mg Tablet PO (07:27)
[2020-08-16] MEDS: calcium acetate 667 mg Capsule 1334 MG PO ×3 (07:27→17:23)
[2020-08-16] MEDS: PARICALCITOL 1 MCG 1 EACH PO (07:28)
[2020-08-16] MEDS: TORSEmide 20 mg Tablet 100 MG PO (07:28)
--- NOTE | 2020-08-16 07:55 | PM.PN ---
Subjective Subjective: Interval history: Patient seen bedside this morning, he is 1 day status post incision and debridement down to bone with insertion of antibiotic impregnated cement spacer right first metatarsophalangeal joint secondary to gas gangrene. Patient doing well postoperatively. Denies any pain to the right lower extremity. Tolerating regular diet. Denies any acute events overnight. Vitals/I&O/Wt Last Vital Signs Temp 99.2 F 08/16/20 07:15 Pulse 109 H 08/16/20 07:15 Resp 19 H 08/16/20 07:15 BP 145/86 08/16/20 07:26 Pulse Ox 96 08/16/20 07:15 08/15/20 08/16/20 08/16/20 22:59 06:59 14:59 Intake Total 200.208 / 790.208 49.792 / 840.000 Output Total 600 / 600 550 / 1150 Balance -399.792 / 190.208 -500.208 / -310.000 Weight last 48 hrs Weight 309 lb 1.6 oz Weight 306 lb 6.4 oz Physical Exam Narrative: EXAM NARRATIVE: Patient is alert and oriented ?3 and in no acute distress. The following is a focused bilateral lower extremity exam. VASCULAR: Dorsalis pedis and posterior tibial arteries palpable +1 bilaterally. Capillary refill time less than 5 seconds to the distal hallux bilaterally. Calf is supple and nontender proximally and distally. Diminished hair growth at legs and feet bilaterally, no hair growth appreciated to the level to dorsal toes. +1 pitting edema to the lower extremities. Palpable +1 popliteal artery bilaterally. NEUROLOGICAL: Protective sensation intact 0/10 sites, tested with Wagram Sergei monofilament to bilateral feet. DERMATOLOGICAL: Wound to the medial aspect of the right first metatarsal phalangeal joint measures 4 cm x 4.5 cm x 0.5 cm, no purulent drainage, no periwound erythema, no malodor. No proximal lymphangitic streaking. Able to visualize simplex P antibiotic spacer with tobramycin. No active bleeding. MUSCULOSKELETAL: Muscle strength is 5 out of 5 in all 3 cardinal planes to bilateral foot and ankle. Pes planus foot type bilaterally. Ankle joint dorsiflexion is to neutral bilaterally. Reducible hammertoe deformities 2 through 5 bilaterally. Mild hallux abductovalgus deformity bilaterally, hallux is not track bound. Data : 08/16/20 05:01 08/16/20 05:01 Micro: Microbiology 08/15/20 10:00 Gram Stain - Final Foot - #1 08/11/20 18:20 Gram Stain - Final Toe - #1 Wound Culture - Final Staphylococcus aureus Group g streptococcus A&P Assessment and plan (1) End stage renal disease: Status: Chronic (2) Gangrene associated with type 2 diabetes mellitus: Status: Acute (3) Non-pressure chronic ulcer of other part of right foot with necrosis of muscle: Status: Acute Mr. Bonilla is a pleasant 65-year-old diabetic male with gas gangrene right foot, history of end-stage renal disease on peritoneal dialysis. He is 1 day status post incision and debridement down to and including bone with insertion of cement spacer right first metatarsophalangeal joint doing well postoperatively. No further surgical debridement anticipated during his hospitalization. Patient is okay for discharge planning from podiatry standpoint. Patient currently receiving empiric IV antibiotics vancomycin and Zosyn both renally dosed. Bone culture taken intraoperatively 08/15/2020, will narrow antibiotics once cultures reveal further information, appreciate infectious disease consultation and management. Patient may do protected weightbearing with Ortho heel Darco shoe for transfers to the right lower extremity otherwise is to elevate his right foot while at rest. Paperwork has been submitted for wound VAC, will be utilizing wound VAC moving forward, will continue with 3 times daily dressing changes, at this point will switch to saline wet-to-dry, patient to follow-up in podiatry clinic after discharge. Attestations Medical Necessity Statement*: Gas gangrene right foot Coding Level of Care Code Acute Lockstitch Hemmer for Breanna Aguero Diagnoses End stage renal disease N18.6 Gangrene associated with type 2 diabetes mellitus E11.52 Non-pressure chronic ulcer of other part of right foot with necrosis of muscle L97.513
--- NOTE | 2020-08-16 08:50 | XR_ITS ---
WS: [id number] XR chest 1V portable [id number] REASON FOR EXAM: PICC PLACEMENT FINDINGS: There has been a right arm PICC line placement. The tip of the catheter is at the cavoatrial junction in proper position for use. The chest is otherwise unchanged compared to 08/11/2020. IMPRESSION Right arm PICC line in proper position.
--- NOTE | 2020-08-16 09:45 | P.PN_ITS ---
Subjective Subjective: Interval history: Hospital course, labs and vitals noted. Today morning on examination patient is up walking in his room with walker. Denies any pain nausea, vomiting, headache. States his night was comfortable. Patient had a PICC line placed earlier in the morning. Has remained afebrile and hemodynamically stable. Vitals/I&O/Wt Last Vital Signs Temp 99.2 F 08/16/20 07:15 Pulse 109 H 08/16/20 07:15 Resp 19 H 08/16/20 07:15 BP 145/86 08/16/20 07:26 Pulse Ox 96 08/16/20 07:15 08/15/20 08/16/20 08/16/20 22:59 06:59 14:59 Intake Total 200.208 / 790.208 49.792 / 840.000 240 / 240 Output Total 600 / 600 550 / 1150 200 / 200 Balance -399.792 / 190.208 -500.208 / -310.000 40 / 40 Weight last 48 hrs Weight 140.205 kg Weight 138.981 kg Physical Exam Narrative: EXAM NARRATIVE: General: No acute distress, AO x3, morbidly obese HEENT: PERRLA, pupils bilaterally equal and reactive Chest: Normal vesicular breath sounds, no added sounds, equal good air entry bilaterally CVS: S1-S2 regular, no murmurs, no tachycardia, no gallops, no rubs Abdomen: Soft, nontender, no organomegaly, bowel sounds present Neuro: No focal deficits, no facial deformity, AO x3, power 5/5 in all limbs Extremities: Right foot surgically bandaged, and boot, no erythema on the leg Data : 08/16/20 05:01 08/16/20 05:01 Micro: Microbiology 08/15/20 10:00 Gram Stain - Final Foot - #1 08/11/20 18:20 Gram Stain - Final Toe - #1 Wound Culture - Final Staphylococcus aureus Group g streptococcus A&P Assessment and plan (1) Osteomyelitis: Status: Acute (2) Diabetic foot ulcer associated with type 2 diabetes mellitus: Status: Acute Qualifiers: Diabetic foot ulcer location: toe Laterality: right Non-pressure ulcer stage: with necrosis of muscle Qualified Code(s): E11.621 - Type 2 diabetes mellitus with foot ulcer; L97.513 - Non-pressure chronic ulcer of other part of right foot with necrosis of muscle (3) Cellulitis: -as noted above -improving erythema, warmth Status: Acute Qualifiers: Laterality: right Site of cellulitis: extremity Site of cellulitis of extremity: lower extremity Qualified Code(s): L03.115 - Cellulitis of right lower limb (4) Atrial fibrillation with RVR: Status: Acute (5) Anemia: Status: Acute Qualifiers: Anemia type: unspecified type Qualified Code(s): D64.9 - Anemia, unspecified (6) End stage renal disease: Status: Chronic (7) Diabetes: -hx of NIDDM type II -Accuchecks, ISS, hypoglycemia precautions Status: Chronic Qualifiers: Diabetes mellitus complication detail: with polyneuropathy Diabetes mellitus complication status: with neurologic complications Diabetes mellitus intermodal customer service insulin use: without correction use Diabetes mellitus type: type 2 Qualified Code(s): E11.42 - Type 2 diabetes mellitus with diabetic po lyneuropathy (8) Hypertension: Status: Chronic Qualifiers: Hypertension type: essential hypertension Qualified Code(s): I10 - Essential (primary) hypertension (9) Hypothyroidism: -continue levothyroxine Status: Chronic Qualifiers: Hypothyroidism type: unspecified Qualified Code(s): E03.9 - Hypothyroidism, unspecified (10) Elevated troponin: -noted troponin elevation, likely type II secondary to demand ischemia from anemia and atrial fibrillation with RVR -continue BB, statin, ARB; hold ASA due to anemia Status: Acute (11) Morbid obesity: -BMI-42 kg/m2 Status: Chronic (12) Gout: -continue allopurinol Status: Chronic Qualifiers: Chronicity: chronic Gout etiology: unspecified cause Gout site: unspecified site Presence 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 Qualified Code(s): M1A.9XX0 - Chronic gout, unspecified, without tophus (tophi) Additional A&P Information Cellulitis/diabetic foot ulcer of the right leg: Osteomyelitis of first metatarsal: Postop day 1 from incision and debridement. Appreciate Dr. Woodall's of recommendations. PICC line placed. For now continue with broad-spectrum antibiotic coverage with vancomycin and Zosyn. We will follow up over cultures and de-escalate antibiotics accordingly. Patient would most likely need antibiotics for 6 weeks in all. Weightbearing and dressing as per Dr. Woodall. Patient may do protected weightbearing with Ortho heel Darco shoe for transfers to the right lower extremity otherwise is to elevate his right foot while at rest. Paperwork has been submitted for wound VAC, will be utilizing wound VAC moving forward, will continue with 3 times daily dressing changes, at this point will switch to saline wet-to-dry, patient to follow-up in podiatry clinic after discharge. We will consult ID for antibiotic tailoring as per the culture results. Blood cultures have remained negative. Atrial fibrillation with RVR: Rate controlled. Sinus rhythm. Continue telemetry monitoring. Last echocardiogram from 2018 shows an EF of 55% with no regional wall motion abnormality, trace AI, normal PASP. Increased dose of home dose of metoprolol to 75 mg twice daily. For now hold off on anticoagulation as patient was in atrial fibrillation for less than 48 hours. We will continue to monitor. If he has more atrial fibrillation we will start on anticoagulation as per the chads-vas score. End-stage renal disease: Continue peritoneal dialysis. Renal recommendations appreciated. Anemia: Most likely a combination of iron deficiency anemia, chronic disease along with ongoing osteomyelitis right now. Post 2 unit blood transfusion. Hemoglobin seems to be at baseline at around 8. Will transfuse if falls below 7. Continue with IV iron supplementation to finish a 5-day course. Last Procrit shot on August 15. Hypertension: Goal blood pressure less than 140/90 mmHg. Continue with home dose of amlodipine 10 mg, clonidine 0.1 twice daily, losartan 100 mg daily. If needed can increase her clonidine to every 8 hours from twice daily. -renal diet -GI ppx with PPI -DVT ppx: 5000 every 12 heparin -Dispo: home; will need home health due to IV antibiotics and wound care. is teachable and has dealt with IV antibiotics in the past -Code status: FULL code Attestations Medical Necessity Statement*: Patient requires further hospitalization for treatment of osteomyelitis, following up OR cultures to de-escalate antibiotics and for figuring out long-term antibiotic plan. Time Spent in Patient Care: Greater than 35 minutes Coding Level of Care Code Acute Medical Liaison for [facility] Fwd Diagnoses Osteomyelitis M86.9 Diabetic foot ulcer associated with type 2 diabetes mellitus E11.621; L97.513 Diabetic foot ulcer location: toe Laterality: right Non-pressure ulcer stage: with necrosis of muscle Cellulitis L03.115 Laterality: right Site of cellulitis: extremity Site of cellulitis of extremity: lower extremity Atrial fibrillation with RVR I48.91 Anemia D64.9 Anemia type: unspecified type End stage renal disease N18.6 Diabetes E11.42 Diabetes mellitus complication detail: with polyneuropathy Diabetes mellitus complication status: with neurologic complications Diabetes mellitus intermodal customer service insulin use: without intermodal customer service use Diabetes mellitus type: type 2 Hypertension I10 Hypertension type: essential hypertension Hypothyroidism E03.9 Hypothyroidism type: unspecified Elevated troponin R77.8 Morbid obesity E66.01 Gout M1A.9XX0 Chronicity: chronic Gout etiology: unspecified cause Gout site: unspecified site Presence 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
[2020-08-16 10:50] LABS: Glucose Point of Care 250 mg/dL (70-110)
[2020-08-16] MEDS: iron sucrose 200 MG in sodium chloride 0.9% (100 ml) 100 ML 220 MG IV (11:32)
--- NOTE | 2020-08-16 12:09 | P.PN_ITS ---
Subjective Subjective: Interval history: No new issues today. His foot feels good, no pain PD is going well, flows in and out going well No edema and no other volume assoc No uremic Sx Medications: Reviewed: Yes Medication Review Details: Active Medications Generic Name Dose Route Start Last Admin Trade Name Freq PRN Reason Stop Dose Admin Acetaminophen 650 mg 08/11/20 23:58 Acetaminophen 32 5 Mg Tablet PO Q6H PRN Mild/Mod Pain Or Temp >/= 101 Hydrocodone Bitart /Acetaminophen 1 tab 08/11/20 23:58 Hydrocodone-Acet aminophen 5-325 Mg Tablet PO Q4H PRN MODERATE TO SEVER E PAIN Allopurinol 300 mg 08/12/20 09:00 08/14/20 09:43 Allopurinol 300 Mg Tablet PO 300 mg DAILY MARIANELA Administration Amlodipine Besylat e 10 mg 08/14/20 09:00 08/14/20 09:56 Amlodipine 10 Mg Tablet PO 10 mg DAILY MARIANELA Administration Aspirin 81 mg 08/12/20 09:00 08/15/20 11:10 Aspirin 81 Mg Ec Tablet PO 81 mg DAILY MARIANELA Administration Atorvastatin Calci um 20 mg 08/12/20 09:00 08/14/20 09:43 Atorvastatin 40 Mg Tablet PO 20 mg DAILY MARIANELA Administration Bisacodyl 10 mg 08/11/20 23:58 Bisacodyl 5 Mg T ablet PO DAILY PRN CONSTIPATION Calcium Acetate 1,334 mg 08/12/20 18:00 08/15/20 11:10 Calcium Acetate 667 Mg Capsule PO 1,334 mg TIDWM MARIANELA Administration Citalopram Hydrobr omide 20 mg 08/12/20 21:00 08/14/20 20:46 Citalopram 20 Mg Tablet PO 20 mg BEDTIME MARIANELA Administration Clonidine HCl 0.1 mg 08/12/20 09:00 08/14/20 17:24 Clonidine 0.1 Mg Tablet PO 0.1 mg BID MARIANELA Administration Cyclobenzaprine HC l 5 mg 08/11/20 23:54 08/14/20 22:59 Cyclobenzaprine 10 Mg Tablet PO 5 mg Q8H PRN Administration muscle spasms Dextrose 25 ml 08/12/20 00:38 Dextrose 50% Syr shilo 50 Ml IVP ONCE PRN hypoglycemia prot ocol Protocol Dextrose 50 ml 08/12/20 00:38 Dextrose 50% Syr shilo 50 Ml IVP PRN PRN hypoglycemia prot ocol Protocol Ergocalciferol 50,000 unit 08/18/20 09:00 Ergocalciferol ( Vitamin D2) 50,000 Unit Capsule PO Q7D MARIANELA Fentanyl 50 mcg 08/15/20 09:10 Fentanyl 50 Mcg/ Ml Inj 2ml IVP 08/16/20 09:10 Q5M PRN Pain level 6-10 P ACU Phase I Glucagon 1 mg 08/12/20 00:38 Glucagon 1 Mg/Ml Inj 1 Ml IM ONCE PRN Adult Acute Hypog lycemia Prot. Protocol Heparin Sodium (Be ef Lung) 5,000 unit 08/11/20 23:45 08/12/20 01:14 Heparin 5,000 Un it/Ml Inj 1 Ml SUBCUT Not Given Q12H MARIANELA Hydralazine HCl 10 mg 08/14/20 05:14 08/14/20 15:06 Hydralazine 20 M g/Ml Inj 1 Ml IVP 10 mg Q6H PRN Administration SYSTOLIC BLOOD MN ESSURE Diltiazem HCl 125 mg/ Sodium 125 mls @ 0 mls/h r 08/11/20 19:45 08/12/20 03:09 Chloride IV 0 mg/hr .Q0M MARIANELA 0 mls/hr Titration Protocol Per Protocol Piperacillin Sod/T azobactam 50 mls @ 12.5 mls /hr 08/12/20 08:00 08/15/20 11:08 Sod 3.375 gm/ So dium Chloride IV 12.5 mls/hr Q12H MARIANELA Administration Protocol Dextrose 500 mls @ 100 mls /hr 08/12/20 00:38 D5w IV ONCE PRN Adult Acute Hypog lycemia Prot Protocol Vancomycin HCl 2,0 00 mg/ 500 mls @ 250 mls /hr 08/13/20 20:00 08/13/20 23:10 Sodium Chloride IV Infused Q48H MARIANELA Infusion Iron Sucrose 200 m g/ Sodium 110 mls @ 220 mls /hr 08/14/20 12:00 08/14/20 13:21 Chloride IV 08/18/20 12:29 Infused Q24H MARIANELA Infusion Insulin Aspart 0 unit 08/12/20 08:00 08/15/20 07:53 Insulin Aspart 1 00 Unit/1 Ml SUBCUT 2 unit WM&BEDTIME MARIANELA Administration Protocol Levothyroxine Sodi um 150 mcg 12/03/20 09:00 08/14/20 09:55 Levothyroxine 15 0 Mcg Tablet PO 150 mcg DAILY MARIANELA Administration Losartan Potassium 100 mg 08/12/20 09:00 08/14/20 09:56 Losartan 50 Mg T ablet PO 100 mg DAILY MARIANELA Administration Megestrol Acetate 40 mg 08/12/20 09:00 08/14/20 10:10 Megestrol 40 Mg Tablet PO 40 mg DAILY MARIANELA Administration Metoprolol Tartrat e 50 mg 08/12/20 09:00 08/15/20 07:52 Metoprolol Tartr ate 50 Mg Tablet PO 50 mg BID MARIANELA Administration Morphine Sulfate 2 mg 08/11/20 23:58 Morphine 4 Mg/Ml Sdv 1 Ml IVP Q4H PRN SEVERE PAIN Naloxone HCl 0.1 mg 08/11/20 23:58 Naloxone 0.4 Mg/ Ml Sdv IVP Q2M PRN OPIATERV Non-Formulary Medi cation 1 mcg 08/13/20 09:00 08/14/20 09:56 Paricalcitol [Ze mplar] PO Not Given DAILY MARIANELA Ondansetron HCl 4 mg 08/11/20 22:52 Ondansetron 2 Mg /Ml Sdv 2 Ml IVP Q6H PRN NAUSEA AND VOMITI NG Pantoprazole Sodiu m 40 mg 08/12/20 09:00 08/14/20 17:[address] 40 Mg Tablet PO 40 mg BID MARIANELA Administration Peritoneal Dialysi s Solution 2,000 ml 08/12/20 01:00 08/15/20 07:02 Dianeal Low Ca W /2.5% Dex 2,000 Ml Bag INTRAPERIT 2,000 ml Q6H MARIANELA Administration Sodium Hypochlorit e 1 applic 08/14/20 21:00 08/14/20 22:33 Sodium Hypochlor ite 0.25% Btl 473 Ml TOPICAL 1 applic TID MARIANELA Administration Torsemide 100 mg 08/12/20 09:00 08/14/20 09:42 Torsemide 20 Mg Tablet PO 100 mg DAILY MARIANELA Administration Tramadol HCl 50 mg 08/11/20 23:54 Tramadol 50 Mg T ablet PO Q8H PRN Pain No Known Allergies Allergy (Verified 08/11/20 15:56) Vitals/I&O/Wt Last Vital Signs Temp 99.0 F 08/16/20 11:23 Pulse 85 08/16/20 11:23 Resp 18 08/16/20 11:23 BP 153/84 08/16/20 11:23 Pulse Ox 96 08/16/20 11:23 08/15/20 08/16/20 08/16/20 22:59 06:59 14:59 Intake Total 550.208 / 1140.208 49.792 / 1190.000 240 / 240 Output Total 600 / 600 550 / 1150 200 / 200 Balance -49.792 / 540.208 -500.208 / 40.000 40 / 40 Weight last 48 hrs Weight 140.205 kg Weight 138.981 kg Physical Exam Narrative: EXAM NARRATIVE: Constitutional: Awake, conversant, jovial HEENT: Wet mucosa, no jvp, non icteric Lungs: Bilaterally clear without discernible wheeze, rales in all lung zones CVS: S1 S2, no murmurs Abdo: Soft, BS ok Ext 4: Minimal edema, peripheral perfusion with no cyanosis, right foot swollen and surgical dressing noted Neurological: Grossly non-focal Data : 08/16/20 05:01 08/16/20 05:01 Micro: Microbiology 08/15/20 10:00 Gram Stain - Final Foot - #1 Tissue Culture - Preliminary 08/11/20 18:20 Gram Stain - Final Toe - #1 Wound Culture - Final Staphylococcus aureus Group g streptococcus A&P Additional A&P Information 1. End-stage kidney disease on PD Continue PD with 2 L of 2.5% solution every 6 hours. No changes to his PD prescription today Dose medications for GFR less than 15 on PD 2. Right foot infection. Currently on combination antibiotics. Orthopedic input appreciated, for outpatient podiatry follow-up. - s/p debridement - MSSA and group B strep noted - PICC in for Abx 3. Anemia. Status post PRBCs. - iron low will load while in house - H/H stable - EPO 10k iu given Sunday 4. Hyperphosphatemia. Typically he takes Auryxia but we do not have this on formulary, PhosL on board - likely DC in next few days Pavel Urias MD Nephrology [phone] Patient seen and examined via telemedicine, with the assistance of the bedside RN Attestations Medical Necessity Statement*: eval for ESRD Coding Level of Care Code Acute Automatic Tire Tester for Breanna Aguero
--- NOTE | 2020-08-16 12:55 | PC.SOCIAL ---
IMM Updated Updated pt, on Pg 2 IMM. No questions voiced. Provided pt a copy. Signed, dated, & timed copy in chart.
[2020-08-16 16:44] LABS: Glucose Point of Care 179 mg/dL (70-110)
[2020-08-16] MEDS: metoprolol tartrate 50 mg Tablet 75 MG PO (17:23)
--- NOTE | 2020-08-16 17:48 | PC.NURSE ---
SHIFT SUMMARY PATIENT HAS DONE WELL TODAY. THIS NURSE HAS DONE 2 PERITONEAL DIALYSIS EXCHANGES. PATIENT'S NEXT EXCHANGE IS AT 1999. TOLERATING WELL. DR. BARKLEY DID PATIENT'S DRESSING CHANGE THIS AM AND THIS NURSE DID THE NEXT DRESSING CHANGE THIS AFTERNOON. DR. BARKLEY REQUESTED TO STOP DAKINS SOLUTION AND JUST USE SALINE. PATIENT HAS HAD 400ML OF URINE OUTPUT. SHOWERED TODAY. PICC PLACED TODAY. NO COMPLAINTS.
[2020-08-16] MEDS: citalopram 20 mg Tablet PO (20:23)
[2020-08-16 20:31] LABS: Glucose Point of Care 189 mg/dL (70-110)
[2020-08-16] MEDS: heparin 5,000 unit/mL INJ 1 mL 5000 UNIT SUBCUT (23:29)
[2020-08-17] VITALS (14 sets, daily range): BP systolic 123–171; BP diastolic 74–87; PULSE 65–114; RESP 18–19; TEMP 36.5–36.8; O2SAT 92–98
[2020-08-17] MEDS: Dianeal low Ca w/2.5% dex 2,000 mL Bag 2000 ML INTRAPERIT ×4 (01:53→19:47)
--- NOTE | 2020-08-17 05:09 | NUR.SHIFT ---
Patient had slept part of the night. Patient tolerated well ambulating to the bathroom with the walker. Patient has been Afibrile during the night. Patient's HR would spike to 11X-12X, then decrease to under 100. Patient has been tolerating well the PD. Patients dressing was changed earlier, wound appeared acceptable.
[2020-08-17 06:46] LABS: Glucose Point of Care 178 mg/dL (70-110)
[2020-08-17] MEDS: piperacillin-tazobactam 3.375 GM in sodium chloride 0.9% (plus) 50 ML IV ×2 (08:13→19:46)
[2020-08-17] MEDS: calcium acetate 667 mg Capsule 1334 MG PO ×3 (08:13→17:24)
[2020-08-17] MEDS: cloNIDine 0.1 mg Tablet PO ×2 (08:13→17:24)
[2020-08-17] MEDS: metoprolol tartrate 50 mg Tablet 75 MG PO ×2 (08:13→17:25)
[2020-08-17] MEDS: losartan 50 mg Tablet 100 MG PO (08:13)
[2020-08-17] MEDS: allopurinol 300 mg Tablet PO (08:13)
[2020-08-17] MEDS: aspirin 81 mg EC Tablet PO (08:14)
[2020-08-17] MEDS: amlodipine 10 mg Tablet PO (08:14)
[2020-08-17] MEDS: atorvastatin 40 mg Tablet 20 MG PO (08:14)
[2020-08-17] MEDS: levothyroxine 150 mcg Tablet PO (08:14)
[2020-08-17] MEDS: pantoprazole DR 40 mg Tablet PO ×2 (08:14→17:25)
[2020-08-17] MEDS: PARICALCITOL 1 MCG 1 EACH PO (08:15)
[2020-08-17] MEDS: TORSEmide 20 mg Tablet 100 MG PO (08:17)
[2020-08-17 09:11] LABS: Coronavirus Lab Test PTC Inconclusive
[2020-08-17 11:01] LABS: Glucose Point of Care 268 mg/dL (70-110)
[2020-08-17] MEDS: heparin 5,000 unit/mL INJ 1 mL 5000 UNIT SUBCUT (11:25)
[2020-08-17] MEDS: iron sucrose 200 MG in sodium chloride 0.9% (100 ml) 100 ML 220 MG IV (11:26)
--- NOTE | 2020-08-17 12:22 | PM.PN ---
Subjective Subjective: Interval history: Patient seen bedside this morning, he is 2 days status post incision and debridement down to bone with insertion of antibiotic impregnated cement spacer right first metatarsophalangeal joint secondary to gas gangrene. Patient doing well postoperatively. Denies any pain to the right lower extremity. Tolerating regular diet. Denies any acute events overnight. Vitals/I&O/Wt Last Vital Signs Temp 98.2 F 08/17/20 11:13 Pulse 76 08/17/20 11:13 Resp 18 08/17/20 11:13 BP 143/78 08/17/20 11:13 Pulse Ox 92 08/17/20 11:13 08/16/20 08/17/20 08/17/20 22:59 06:59 14:59 Intake Total 50 / 930 410 / 410 Output Total 400 / 600 300 / 900 Balance -400 / 280 -250 / 30 410 / 410 Weight last 48 hrs Weight 309 lb 1.6 oz Weight 309 lb 1.6 oz Weight 306 lb 6.4 oz Physical Exam Narrative: EXAM NARRATIVE: Patient is alert and oriented ?3 and in no acute distress. The following is a focused bilateral lower extremity exam. VASCULAR: Dorsalis pedis and posterior tibial arteries palpable +1 bilaterally. Capillary refill time less than 5 seconds to the distal hallux bilaterally. Calf is supple and nontender proximally and distally. Diminished hair growth at legs and feet bilaterally, no hair growth appreciated to the level to dorsal toes. +1 pitting edema to the lower extremities. Palpable +1 popliteal artery bilaterally. NEUROLOGICAL: Protective sensation intact 0/10 sites, tested with Dalton Sergei monofilament to bilateral feet. DERMATOLOGICAL: Wound to the medial aspect of the right first metatarsal phalangeal joint measures 4 cm x 4.5 cm x 0.5 cm, no purulent drainage, no periwound erythema, no malodor. No proximal lymphangitic streaking. Able to visualize simplex P antibiotic spacer with tobramycin. No active bleeding. MUSCULOSKELETAL: Muscle strength is 5 out of 5 in all 3 cardinal planes to bilateral foot and ankle. Pes planus foot type bilaterally. Ankle joint dorsiflexion is to neutral bilaterally. Reducible hammertoe deformities 2 through 5 bilaterally. Mild hallux abductovalgus deformity bilaterally, hallux is not track bound. Data : 08/16/20 05:01 08/16/20 05:01 Micro: Microbiology 08/11/20 21:42 Blood Culture - Final Blood NO GROWTH AFTER 5 DAYS 08/11/20 21:35 Blood Culture - Final Blood NO GROWTH AFTER 5 DAYS 08/15/20 10:00 Gram Stain - Final Foot - #1 Tissue Culture - Preliminary A&P Assessment and plan (1) End stage renal disease: Status: Chronic (2) Gangrene associated with type 2 diabetes mellitus: Status: Acute (3) Non-pressure chronic ulcer of other part of right foot with necrosis of muscle: Status: Acute Mr. Bonilla is a pleasant 65-year-old diabetic male with gas gangrene right foot, history of end-stage renal disease on peritoneal dialysis. He is 2 days status post incision and debridement down to and including bone with insertion of cement spacer right first metatarsophalangeal joint doing well postoperatively. -No further surgical debridement anticipated during his hospitalization. -Patient is okay for discharge planning from podiatry standpoint. -Patient currently receiving empiric IV antibiotics vancomycin and Zosyn both renally dosed. Bone culture taken intraoperatively 08/15/2020, will narrow antibiotics once cultures reveal further information, appreciate infectious disease consultation and management. Wound swab taken in the emergency department grew strep G and MSSA, bone culture taken intraoperatively may be suppressed due to antibiotic therapy proceeding procedure. -Patient may do protected weightbearing with Ortho heel Darco shoe for transfers to the right lower extremity otherwise is to elevate his right foot while at rest. -Dressing change saline wet-to-dry will continue this 3 times daily -Outpatient wound VAC has arrived, I will plan on applying wound VAC tomorrow at noon. -At discharge patient will have wound VAC in place, PICC line and IV antibiotics, home health being arranged, will follow up in podiatry clinic 08/20/2020 @ 11:00am for wound vac change Attestations Medical Necessity Statement*: Diabetic foot infection Coding Level of Care Code Acute Division Order Technician for Breanna Aguero Diagnoses End stage renal disease N18.6 Gangrene associated with type 2 diabetes mellitus E11.52 Non-pressure chronic ulcer of other part of right foot with necrosis of muscle L97.513
--- NOTE | 2020-08-17 13:06 | PM.PN ---
Subjective Subjective: Interval history: No new issues today, he feels well No pain in the right foot PD is going well with clear effluent No uremic Sx, no high volume Sx Medications: Reviewed: Yes Medication Review Details: Active Medications Generic Name Dose Route Start Last Admin Trade Name Freq PRN Reason Stop Dose Admin Acetaminophen 650 mg 08/11/20 23:58 Acetaminophen 32 5 Mg Tablet PO Q6H PRN Mild/Mod Pain Or Temp >/= 101 Hydrocodone Bitart /Acetaminophen 1 tab 08/11/20 23:58 Hydrocodone-Acet aminophen 5-325 Mg Tablet PO Q4H PRN MODERATE TO SEVER E PAIN Allopurinol 300 mg 08/12/20 09:00 08/14/20 09:43 Allopurinol 300 Mg Tablet PO 300 mg DAILY MARIANELA Administration Amlodipine Besylat e 10 mg 08/14/20 09:00 08/14/20 09:56 Amlodipine 10 Mg Tablet PO 10 mg DAILY MARIANELA Administration Aspirin 81 mg 08/12/20 09:00 08/15/20 11:10 Aspirin 81 Mg Ec Tablet PO 81 mg DAILY MARIANELA Administration Atorvastatin Calci um 20 mg 08/12/20 09:00 08/14/20 09:43 Atorvastatin 40 Mg Tablet PO 20 mg DAILY MARIANELA Administration Bisacodyl 10 mg 08/11/20 23:58 Bisacodyl 5 Mg T ablet PO DAILY PRN CONSTIPATION Calcium Acetate 1,334 mg 08/12/20 18:00 08/15/20 11:10 Calcium Acetate 667 Mg Capsule PO 1,334 mg TIDWM MARIANELA Administration Citalopram Hydrobr omide 20 mg 08/12/20 21:00 08/14/20 20:46 Citalopram 20 Mg Tablet PO 20 mg BEDTIME MARIANELA Administration Clonidine HCl 0.1 mg 08/12/20 09:00 08/14/20 17:24 Clonidine 0.1 Mg Tablet PO 0.1 mg BID MARIANELA Administration Cyclobenzaprine HC l 5 mg 08/11/20 23:54 08/14/20 22:59 Cyclobenzaprine 10 Mg Tablet PO 5 mg Q8H PRN Administration muscle spasms Dextrose 25 ml 08/12/20 00:38 Dextrose 50% Syr shilo 50 Ml IVP ONCE PRN hypoglycemia prot ocol Protocol Dextrose 50 ml 08/12/20 00:38 Dextrose 50% Syr shilo 50 Ml IVP PRN PRN hypoglycemia prot ocol Protocol Ergocalciferol 50,000 unit 08/18/20 09:00 Ergocalciferol ( Vitamin D2) 50,000 Unit Capsule PO Q7D MARIANELA Fentanyl 50 mcg 08/15/20 09:10 Fentanyl 50 Mcg/ Ml Inj 2ml IVP 08/16/20 09:10 Q5M PRN Pain level 6-10 P ACU Phase I Glucagon 1 mg 08/12/20 00:38 Glucagon 1 Mg/Ml Inj 1 Ml IM ONCE PRN Adult Acute Hypog lycemia Prot. Protocol Heparin Sodium (Be ef Lung) 5,000 unit 08/11/20 23:45 08/12/20 01:14 Heparin 5,000 Un it/Ml Inj 1 Ml SUBCUT Not Given Q12H MARIANELA Hydralazine HCl 10 mg 08/14/20 05:14 08/14/20 15:06 Hydralazine 20 M g/Ml Inj 1 Ml IVP 10 mg Q6H PRN Administration SYSTOLIC BLOOD MT ESSURE Diltiazem HCl 125 mg/ Sodium 125 mls @ 0 mls/h r 08/11/20 19:45 08/12/20 03:09 Chloride IV 0 mg/hr .Q0M MARIANELA 0 mls/hr Titration Protocol Per Protocol Piperacillin Sod/T azobactam 50 mls @ 12.5 mls /hr 08/12/20 08:00 08/15/20 11:08 Sod 3.375 gm/ So dium Chloride IV 12.5 mls/hr Q12H MARIANELA Administration Protocol Dextrose 500 mls @ 100 mls /hr 08/12/20 00:38 D5w IV ONCE PRN Adult Acute Hypog lycemia Prot Protocol Vancomycin HCl 2,0 00 mg/ 500 mls @ 250 mls /hr 08/13/20 20:00 08/13/20 23:10 Sodium Chloride IV Infused Q48H MARIANELA Infusion Iron Sucrose 200 m g/ Sodium 110 mls @ 220 mls /hr 08/14/20 12:00 08/14/20 13:21 Chloride IV 08/18/20 12:29 Infused Q24H MARIANELA Infusion Insulin Aspart 0 unit 08/12/20 08:00 08/15/20 07:53 Insulin Aspart 1 00 Unit/1 Ml SUBCUT 2 unit WM&BEDTIME MARIANELA Administration Protocol Levothyroxine Sodi um 150 mcg 08/12/20 09:00 08/14/20 09:55 Levothyroxine 15 0 Mcg Tablet PO 150 mcg DAILY MARIANELA Administration Losartan Potassium 100 mg 08/12/20 09:00 08/14/20 09:56 Losartan 50 Mg T ablet PO 100 mg DAILY MARIANELA Administration Megestrol Acetate 40 mg 08/12/20 09:00 08/14/20 10:10 Megestrol 40 Mg Tablet PO 40 mg DAILY MARIANELA Administration Metoprolol Tartrat e 50 mg 08/12/20 09:00 08/15/20 07:52 Metoprolol Tartr ate 50 Mg Tablet PO 50 mg BID MARIANELA Administration Morphine Sulfate 2 mg 08/11/20 23:58 Morphine 4 Mg/Ml Sdv 1 Ml IVP Q4H PRN SEVERE PAIN Naloxone HCl 0.1 mg 08/11/20 23:58 Naloxone 0.4 Mg/ Ml Sdv IVP Q2M PRN OPIATERV Non-Formulary Medi cation 1 mcg 08/13/20 09:00 08/14/20 09:56 Paricalcitol [Ze mplar] PO Not Given DAILY [facility] Ondansetron HCl 4 mg 08/11/20 22:52 Ondansetron 2 Mg /Ml Sdv 2 Ml IVP Q6H PRN NAUSEA AND VOMITI NG Pantoprazole Sodiu m 40 mg 08/12/20 09:00 08/14/20 17:[address] 40 Mg Tablet PO 40 mg BID MARIANELA Administration Peritoneal Dialysi s Solution 2,000 ml 08/12/20 01:00 08/15/20 07:02 Dianeal Low Ca W /2.5% Dex 2,000 Ml Bag INTRAPERIT 2,000 ml Q6H MARIANELA Administration Sodium Hypochlorit e 1 applic 08/14/20 21:00 08/14/20 22:33 Sodium Hypochlor ite 0.25% Btl 473 Ml TOPICAL 1 applic TID MARIANELA Administration Torsemide 100 mg 08/12/20 09:00 08/14/20 09:42 Torsemide 20 Mg Tablet PO 100 mg DAILY MARIANELA Administration Tramadol HCl 50 mg 08/11/20 23:54 Tramadol 50 Mg T ablet PO Q8H PRN Pain No Known Allergies Allergy (Verified 08/11/20 15:56) Vitals/I&O/Wt Last Vital Signs Temp 98.2 F 08/17/20 11:13 Pulse 76 08/17/20 11:13 Resp 18 08/17/20 11:13 BP 143/78 08/17/20 11:13 Pulse Ox 92 08/17/20 11:13 08/16/20 08/17/20 08/17/20 22:59 06:59 14:59 Intake Total 50 / 930 410 / 410 Output Total 400 / 600 300 / 900 Balance -400 / 280 -250 / 30 410 / 410 Weight last 48 hrs Weight 140.205 kg Weight 140.205 kg Weight 138.981 kg Physical Exam Narrative: EXAM NARRATIVE: Constitutional: Awake, conversant, jovial HEENT: Wet mucosa, no jvp, non icteric Lungs: Bilaterally clear without discernible wheeze, rales in all lung zones CVS: S1 S2, no murmurs Abdo: Soft, BS ok Ext 4: Minimal edema, peripheral perfusion with no cyanosis, right foot swollen and surgical dressing noted Neurological: Grossly non-focal Data : 08/16/20 05:01 08/16/20 05:01 Micro: Microbiology 08/11/20 21:42 Blood Culture - Final Blood NO GROWTH AFTER 5 DAYS 08/11/20 21:35 Blood Culture - Final Blood NO GROWTH AFTER 5 DAYS 08/15/20 10:00 Gram Stain - Final Foot - #1 Tissue Culture - Preliminary A&P Additional A&P Information 1. End-stage kidney disease on PD Continue PD with 2 L of 2.5% solution every 6 hours. No changes to his PD prescription today Dose medications for GFR less than 15 on PD 2. Right foot infection. Currently on combination antibiotics. Orthopedic input appreciated, for outpatient podiatry follow-up. - s/p debridement - MSSA and group B strep noted - PICC in for Abx 3. Anemia. Status post PRBCs. - iron low will load while in house - H/H stable - EPO 10k iu given Sunday 4. Hyperphosphatemia. Typically he takes Auryxia but we do not have this on formulary, PhosL on board Pavel Urias MD Nephrology [phone] Patient seen and examined via telemedicine, with the assistance of the bedside RN Attestations Medical Necessity Statement*: eval for ESRD mgmt Coding Level of Care Code Acute Real Estate Associate Attorney for Chg More
--- NOTE | 2020-08-17 13:44 | PM.PN ---
Subjective Subjective: Interval history: No acute events overnight. Remains comfortable. Denies any nausea, vomiting, headache. On examination working on laptop. Working well with physical therapy. States pain is well controlled. T-max last 24 hours afebrile. Denies any difficulty in breathing. Vitals/I&O/Wt Last Vital Signs Temp 98.2 F 08/17/20 11:13 Pulse 84 08/17/20 13:13 Resp 18 08/17/20 11:13 BP 143/78 08/17/20 11:13 Pulse Ox 92 08/17/20 11:13 08/16/20 08/17/20 08/17/20 22:59 06:59 14:59 Intake Total 50 / 930 650 / 650 Output Total 400 / 600 300 / 900 200 / 200 Balance -400 / 280 -250 / 30 450 / 450 Weight last 48 hrs Weight 140.205 kg Weight 140.205 kg Weight 138.981 kg Physical Exam Narrative: EXAM NARRATIVE: General: No acute distress, AO x3, morbidly obese HEENT: PERRLA, pupils bilaterally equal and reactive Chest: Normal vesicular breath sounds, no added sounds, equal good air entry bilaterally CVS: S1-S2 regular, no murmurs, no tachycardia, no gallops, no rubs Abdomen: Soft, nontender, no organomegaly, bowel sounds present Neuro: No focal deficits, no facial deformity, AO x3, power 5/5 in all limbs Extremities: Right foot surgically bandaged, and boot, no erythema on the leg Data : 08/16/20 05:01 08/16/20 05:01 Micro: Microbiology 08/15/20 10:00 Gram Stain - Final Foot - #1 Tissue Culture - Preliminary 08/11/20 21:42 Blood Culture - Final Blood NO GROWTH AFTER 5 DAYS 08/11/20 21:35 Blood Culture - Final Blood NO GROWTH AFTER 5 DAYS A&P Assessment and plan (1) Osteomyelitis: Status: Acute (2) Diabetic foot ulcer associated with type 2 diabetes mellitus: Status: Acute Qualifiers: Diabetic foot ulcer location: toe Laterality: right Non-pressure ulcer stage: with necrosis of muscle Qualified Code(s): E11.621 - Type 2 diabetes mellitus with foot ulcer; L97.513 - Non-pressure chronic ulcer of other part of right foot with necrosis of muscle (3) Cellulitis: -as noted above -improving erythema, warmth Status: Acute Qualifiers: Laterality: right Site of cellulitis: extremity Site of cellulitis of extremity: lower extremity Qualified Code(s): L03.115 - Cellulitis of right lower limb (4) Atrial fibrillation with RVR: Status: Acute (5) Anemia: Status: Acute Qualifiers: Anemia type: unspecified type Qualified Code(s): D64.9 - Anemia, unspecified (6) End stage renal disease: Status: Chronic (7) Diabetes: -hx of NIDDM type II -Accuchecks, ISS, hypoglycemia precautions Status: Chronic Qualifiers: Diabetes mellitus type: type 2 Diabetes mellitus residential insulin use: without residential use Diabetes mellitus complication status: with neurologic complications Diabetes mellitus complication detail: with polyneuropathy Qualified Code(s): E11.42 - Type 2 diabetes mellitus with diabetic polyneuropathy (8) Hypertension: Status: Chronic Qualifiers: Hypertension type: essential hypertension Qualified Code(s): I10 - Essential (primary) hypertension (9) Hypothyroidism: -continue levothyroxine Status: Chronic Qualifiers: Hypothyroidism type: unspecified Qualified Code(s): E03.9 - Hypothyroidism, unspecified (10) Elevated troponin: -noted troponin elevation, likely type II secondary to demand ischemia from anemia and atrial fibrillation with RVR -continue BB, statin, ARB; hold ASA due to anemia Status: Acute (11) Morbid obesity: -BMI-42 kg/m2 Status: Chronic (12) Gout: -continue allopurinol Status: Chronic Qualifiers: Gout site: unspecified site Gout etiology: unspecified cause Chronicity: chronic Presence 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 Qualified Code(s): M1A.9XX0 - Chronic gout, unspecified, without tophus (tophi) Additional A&P Information Cellulitis/diabetic foot ulcer of the right leg: Osteomyelitis of first metatarsal: Postop day 1 from incision and debridement. Appreciate Dr. Woodall's of recommendations. PICC line placed. For now continue with broad-spectrum antibiotic coverage with vancomycin and Zosyn. We will follow up over cultures and de-escalate antibiotics accordingly. Patient would most likely need antibiotics for 6 weeks in all. Weightbearing and dressing as per Dr. Woodall. Patient may do protected weightbearing with Ortho heel Darco shoe for transfers to the right lower extremity otherwise is to elevate his right foot while at rest. Paperwork has been submitted for wound VAC, will be utilizing wound VAC moving forward, will continue with 3 times daily dressing changes, at this point will switch to saline wet-to-dry, patient to follow-up in podiatry clinic after discharge. Wound VAC to be placed tomorrow by Dr. Woodall. We will consult ID for antibiotic tailoring as per the culture results. Blood cultures have remained negative. Atrial fibrillation with RVR: Rate controlled. Sinus rhythm. Continue telemetry monitoring. Last echocardiogram from 2018 shows an EF of 55% with no regional wall motion abnormality, trace AI, normal PASP. Increased dose of home dose of metoprolol to 75 mg twice daily. For now hold off on anticoagulation as patient was in atrial fibrillation for less than 48 hours. We will continue to monitor. If he has more atrial fibrillation we will start on anticoagulation as per the chads-vas score. Type 2 diabetes mellitus: Check HbA1c. Patient has required 14 units of Humalog last 24 hours. Given osteomyelitis patient will require tighter blood glucose monitoring and control. At home patient takes glipizide 5 mg. Will dose as per the HbA1c results. End-stage renal disease: Continue peritoneal dialysis. Renal recommendations appreciated. Anemia: Most likely a combination of iron deficiency anemia, chronic disease along with ongoing osteomyelitis right now. Post 2 unit blood transfusion. Hemoglobin seems to be at baseline at around 8. Will transfuse if falls below 7. Continue with IV iron supplementation to finish a 5-day course. Last Procrit shot on August 15. Hypertension: Goal blood pressure less than 140/90 mmHg. Continue with home dose of amlodipine 10 mg, clonidine 0.1 twice daily, losartan 100 mg daily. If needed can increase her clonidine to every 8 hours from twice daily. -renal diet -GI ppx with PPI -DVT ppx: 5000 every 12 heparin -Dispo: home; will need home health due to IV antibiotics and wound care. is teachable and has dealt with IV antibiotics in the past -Code status: FULL code Plan for the day: Continue with broad-spectrum antibiotics while awaiting final culture results from the OR. Continue with peritoneal dialysis for end-stage renal disease. Blood pressure monitoring. Wound care and physical therapy as per Dr. Woodall. Wound VAC to be placed tomorrow. ID consultation for antibiotics as an outpatient. Attestations Medical Necessity Statement*: Needs further hospitalization for management of osteomyelitis of first metatarsal left foot while over cultures are pending, end-stage renal disease Time Spent in Patient Care: Greater than 35 minutes (>than 50% of time spent in counselling and/or direct pt care on unit). Coding Level of Care Code Acute Bundle Sorter for g Fwd Diagnoses Osteomyelitis M86.9 Diabetic foot ulcer associated with type 2 diabetes mellitus E11.621; L97.513 Diabetic foot ulcer location: toe Laterality: right Non-pressure ulcer stage: with necrosis of muscle Cellulitis L03.115 Laterality: right Site of cellulitis: extremity Site of cellulitis of extremity: lower extremity Atrial fibrillation with RVR I48.91 Anemia D64.9 Anemia type: unspecified type End stage renal disease N18.6 Diabetes E11.42 Diabetes mellitus type: type 2 Diabetes mellitus residential insulin use: without emt intermediate use Diabetes mellitus complication status: with neurologic complications Diabetes mellitus complication detail: with polyneuropathy Hypertension I10 Hypertension type: essential hypertension Hypothyroidism E03.9 Hypothyroidism type: unspecified Elevated troponin R77.8 Morbid obesity E66.01 Gout M1A.9XX0 Gout site: unspecified site Gout etiology: unspecified cause Chronicity: chronic Presence 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
[2020-08-17 15:53] LABS: Estmated Average Glucose 137; Hemoglobin A1C 6.4 % (4.0-6.0)
[2020-08-17 17:18] LABS: Glucose Point of Care 147 mg/dL (70-110)
[2020-08-17] MEDS: HYDROcodone-acetaminophen 5-325 mg Tablet 1 TAB PO (17:31)
--- NOTE | 2020-08-17 17:53 | PC.NURSE ---
SHIFT SUMMARY PATIENT HAS DONE WELL TODAY. DR. BARKLEY CHANGED PATIENT'S DRESSING THIS AM AND THIS NURSE CHANGED IT THIS AFTERNOON AROUND 1430. PATIENT IS TOLERATING PERITONEAL DIALYSIS WELL. THIS NURSE HAS COMPLETED 2 EXCHANGES. PATIENT IS COMPLAINING OF SHOULDER PAIN THIS EVENING. HYDROCODONE ADMINISTERED. GOOD URINE OUTPUT. TOLERATING PO INTAKE. NO COMPLAINTS.
[2020-08-17 21:47] LABS: Glucose Point of Care 220 mg/dL (70-110)
[2020-08-17] MEDS: citalopram 20 mg Tablet PO (22:00)
[2020-08-18] VITALS (11 sets, daily range): BP systolic 123–164; BP diastolic 68–97; PULSE 79–101; RESP 12–18; TEMP 36.6–37.2; O2SAT 95–98
[2020-08-18] MEDS: heparin 5,000 unit/mL INJ 1 mL 5000 UNIT SUBCUT ×2 (00:03→12:33)
[2020-08-18] MEDS: Dianeal low Ca w/2.5% dex 2,000 mL Bag 2000 ML INTRAPERIT ×2 (02:13→08:38)
--- NOTE | 2020-08-18 06:18 | NUR.SHIFT ---
Patient mainly slept, patient has had no complaints and is eager to be discharged. PD is being tolerated well. Surgical wound dressing was replaced with no issues.
[2020-08-18 06:44] LABS: Glucose Point of Care 156 mg/dL (70-110)
[2020-08-18] MEDS: piperacillin-tazobactam 3.375 GM in sodium chloride 0.9% (plus) 50 ML IV (08:28)
[2020-08-18] MEDS: TORSEmide 20 mg Tablet 100 MG PO (08:30)
[2020-08-18] MEDS: calcium acetate 667 mg Capsule 1334 MG PO ×2 (08:31→12:33)
[2020-08-18] MEDS: ergocalciferol (vitamin D2) 50,000 Unit Capsule 50000 UNIT PO (08:32)
[2020-08-18] MEDS: cloNIDine 0.1 mg Tablet PO (08:32)
[2020-08-18] MEDS: amlodipine 10 mg Tablet PO (08:35)
[2020-08-18] MEDS: allopurinol 300 mg Tablet PO (08:35)
[2020-08-18] MEDS: levothyroxine 150 mcg Tablet PO (08:35)
[2020-08-18] MEDS: aspirin 81 mg EC Tablet PO (08:35)
[2020-08-18] MEDS: atorvastatin 40 mg Tablet 20 MG PO (08:35)
[2020-08-18] MEDS: losartan 50 mg Tablet 100 MG PO (08:36)
[2020-08-18] MEDS: metoprolol tartrate 50 mg Tablet 75 MG PO (08:36)
[2020-08-18] MEDS: pantoprazole DR 40 mg Tablet PO (08:36)
[2020-08-18] MEDS: PARICALCITOL 1 MCG 1 EACH PO (08:37)
--- NOTE | 2020-08-18 11:33 | P.PN_ITS ---
Subjective Subjective: Interval history: No new issues overnight. His foot is comfortable. No fevers or chills. Peritoneal dialysis is going well, with painless and and outflow, clear PD effluent. No extremity edema, shortness of breath or other high-volume symptoms, no uremic symptoms. Medications: Reviewed: Yes Medication Review Details: Active Medications Generic Name Dose Route Start Last Admin Trade Name Freq PRN Reason Stop Dose Admin Acetaminophen 650 mg 08/11/20 23:58 Acetaminophen 32 5 Mg Tablet PO Q6H PRN Mild/Mod Pain Or Temp >/= 101 Hydrocodone Bitart /Acetaminophen 1 tab 08/11/20 23:58 Hydrocodone-Acet aminophen 5-325 Mg Tablet PO Q4H PRN MODERATE TO SEVER E PAIN Allopurinol 300 mg 08/12/20 09:00 08/14/20 09:43 Allopurinol 300 Mg Tablet PO 300 mg DAILY MARIANELA Administration Amlodipine Besylat e 10 mg 08/14/20 09:00 08/14/20 09:56 Amlodipine 10 Mg Tablet PO 10 mg DAILY MARIANELA Administration Aspirin 81 mg 08/12/20 09:00 08/15/20 11:10 Aspirin 81 Mg Ec Tablet PO 81 mg DAILY MARIANELA Administration Atorvastatin Calci um 20 mg 08/12/20 09:00 08/14/20 09:43 Atorvastatin 40 Mg Tablet PO 20 mg DAILY AMRIANELA Administration Bisacodyl 10 mg 08/11/20 23:58 Bisacodyl 5 Mg T ablet PO DAILY PRN CONSTIPATION Calcium Acetate 1,334 mg 08/12/20 18:00 08/15/20 11:10 Calcium Acetate 667 Mg Capsule PO 1,334 mg TIDWM MARIANELA Administration Citalopram Hydrobr omide 20 mg 08/12/20 21:00 08/14/20 20:46 Citalopram 20 Mg Tablet PO 20 mg BEDTIME MARIANELA Administration Clonidine HCl 0.1 mg 08/12/20 09:00 08/14/20 17:24 Clonidine 0.1 Mg Tablet PO 0.1 mg BID MARIANELA Administration Cyclobenzaprine HC l 5 mg 08/11/20 23:54 08/14/20 22:59 Cyclobenzaprine 10 Mg Tablet PO 5 mg Q8H PRN Administration muscle spasms Dextrose 25 ml 08/12/20 00:38 Dextrose 50% Syr shilo 50 Ml IVP ONCE PRN hypoglycemia prot ocol Protocol Dextrose 50 ml 08/12/20 00:38 Dextrose 50% Syr shilo 50 Ml IVP PRN PRN hypoglycemia prot ocol Protocol Ergocalciferol 50,000 unit 08/18/20 09:00 Ergocalciferol ( Vitamin D2) 50,000 Unit Capsule PO Q7D MARIANELA Fentanyl 50 mcg 08/15/20 09:10 Fentanyl 50 Mcg/ Ml Inj 2ml IVP 08/16/20 09:10 Q5M PRN Pain level 6-10 P ACU Phase I Glucagon 1 mg 08/12/20 00:38 Glucagon 1 Mg/Ml Inj 1 Ml IM ONCE PRN Adult Acute Hypog lycemia Prot. Protocol Heparin Sodium (Be ef Lung) 5,000 unit 08/11/20 23:45 08/12/20 01:14 Heparin 5,000 Un it/Ml Inj 1 Ml SUBCUT Not Given Q12H MARIANELA Hydralazine HCl 10 mg 08/14/20 05:14 08/14/20 15:06 Hydralazine 20 M g/Ml Inj 1 Ml IVP 10 mg Q6H PRN Administration SYSTOLIC BLOOD GA ESSURE Diltiazem HCl 125 mg/ Sodium 125 mls @ 0 mls/h r 08/11/20 19:45 08/12/20 03:09 Chloride IV 0 mg/hr .Q0M MARIANELA 0 mls/hr Titration Protocol Per Protocol Piperacillin Sod/T azobactam 50 mls @ 12.5 mls /hr 08/12/20 08:00 08/15/20 11:08 Sod 3.375 gm/ So dium Chloride IV 12.5 mls/hr Q12H MARIANELA Administration Protocol Dextrose 500 mls @ 100 mls /hr 08/12/20 00:38 D5w IV ONCE PRN Adult Acute Hypog lycemia Prot Protocol Vancomycin HCl 2,0 00 mg/ 500 mls @ 250 mls /hr 08/13/20 20:00 08/13/20 23:10 Sodium Chloride IV Infused Q48H MARIANELA Infusion Iron Sucrose 200 m g/ Sodium 110 mls @ 220 mls /hr 08/14/20 12:00 08/14/20 13:21 Chloride IV 08/18/20 12:29 Infused Q24H MARIANELA Infusion Insulin Aspart 0 unit 08/12/20 08:00 08/15/20 07:53 Insulin Aspart 1 00 Unit/1 Ml SUBCUT 2 unit WM&BEDTIME MARIANELA Administration Protocol Levothyroxine Sodi um 150 mcg 08/12/20 09:00 08/14/20 09:55 Levothyroxine 15 0 Mcg Tablet PO 150 mcg DAILY MARIANELA Administration Losartan Potassium 100 mg 08/12/20 09:00 08/14/20 09:56 Losartan 50 Mg T ablet PO 100 mg DAILY MARIANELA Administration Megestrol Acetate 40 mg 08/12/20 09:00 08/14/20 10:10 Megestrol 40 Mg Tablet PO 40 mg DAILY MARIANELA Administration Metoprolol Tartrat e 50 mg 08/12/20 09:00 08/15/20 07:52 Metoprolol Tartr ate 50 Mg Tablet PO 50 mg BID MARIANELA Administration Morphine Sulfate 2 mg 08/11/20 23:58 Morphine 4 Mg/Ml Sdv 1 Ml IVP Q4H PRN SEVERE PAIN Naloxone HCl 0.1 mg 08/11/20 23:58 Naloxone 0.4 Mg/ Ml Sdv IVP Q2M PRN OPIATERV Non-Formulary Medi cation 1 mcg 08/13/20 09:00 08/14/20 09:56 Paricalcitol [Ze mplar] PO Not Given DAILY MARIANELA Ondansetron HCl 4 mg 08/11/20 22:52 Ondansetron 2 Mg /Ml Sdv 2 Ml IVP Q6H PRN NAUSEA AND VOMITI NG Pantoprazole Sodiu m 40 mg 08/12/20 09:00 08/14/20 17:[address] 40 Mg Tablet PO 40 mg BID MARIANELA Administration Peritoneal Dialysi s Solution 2,000 ml 08/12/20 01:00 08/15/20 07:02 Dianeal Low Ca W /2.5% Dex 2,000 Ml Bag INTRAPERIT 2,000 ml Q6H MARIANELA Administration Sodium Hypochlorit e 1 applic 08/14/20 21:00 08/14/20 22:33 Sodium Hypochlor ite 0.25% Btl 473 Ml TOPICAL 1 applic TID MARIANELA Administration Torsemide 100 mg 08/12/20 09:00 08/14/20 09:42 Torsemide 20 Mg Tablet PO 100 mg DAILY MARIANELA Administration Tramadol HCl 50 mg 08/11/20 23:54 Tramadol 50 Mg T ablet PO Q8H PRN Pain No Known Allergies Allergy (Verified 08/11/20 15:56) Vitals/I&O/Wt Last Vital Signs Temp 98.9 F 08/18/20 11:08 Pulse 80 08/18/20 11:08 Resp 18 08/18/20 11:08 BP 146/82 08/18/20 11:08 Pulse Ox 97 08/18/20 11:08 08/17/20 08/18/20 08/18/20 22:59 06:59 14:59 Intake Total 50 / 700 240 / 240 Output Total 600 / 800 500 / 1300 200 / 200 Balance -600 / -150 -450 / -600 40 / 40 Weight last 48 hrs Weight 140.205 kg Weight 140.205 kg Weight 140.205 kg Physical Exam Narrative: EXAM NARRATIVE: Constitutional: Awake, conversant, jovial HEENT: Wet mucosa, no jvp, non icteric Lungs: Bilaterally clear without discernible wheeze, rales in all lung zones CVS: S1 S2, no murmurs Abdo: Soft, BS ok Ext 4: Minimal edema, peripheral perfusion with no cyanosis, right foot swollen and surgical dressing noted Neurological: Grossly non-focal Data : 08/16/20 05:01 08/16/20 05:01 Micro: Microbiology 08/15/20 10:00 Gram Stain - Final Foot - #1 Tissue Culture - Final A&P Additional A&P Information 1. End-stage kidney disease on PD Continue CAPD with 2 L of 2.5% solution every 6 hours. No changes to his PD prescription today Dose medications for GFR less than 15 on PD 2. Right foot infection. Currently on combination antibiotics. Orthopedic input appreciated, for outpatient podiatry follow-up. - s/p debridement - MSSA and group B strep noted - PICC in for Abx 3. Anemia. Status post PRBCs. - iron low will load while in house - H/H stable - EPO 10k iu given Sunday 4. Hyperphosphatemia. Typically he takes Auryxia but we do not have this on formulary, PhosL on board - likely DC today Pavel Urias MD Nephrology [phone] Patient seen and examined via telemedicine, with the assistance of the bedside RN Attestations Medical Necessity Statement*: eval for ESRD and PD mgmt Coding Level of Care Code Acute Lithography Contact Worker for Chg Fwd
--- NOTE | 2020-08-18 11:38 | P.CONIM_ITS ---
Providers/Reason For Consult Consulting Physican/Specialty*: Day Hackett MD/Infectious Disease Reason for Consult*: Osteomyelitis Attending Physician: Kory Sosa MD Primary Care Provider: Anmol Santiago History of Present Illness History of Present Illness Levi Bonilla is a 65 year old male with PMH DM2, gout, HTN, CKD on PD, who was admitted on 08/12 after developing right foot color changes, swelling and ulceration over 3-4 days leading up to admission. States he had a chornic appearing small ulcer over the base of his great toe for few years, however this appeared to have increased suddenly without an obvious trigger. He has peripheral neuropathy, does not experience pain. No h/o trauma at site. Due to symptoms c/w gas gangrene he first underwent bedside debridement on 08/14 where changes were noted to extend down to level of joint capsule and then taken to OR on 08/15. OR findings included Devitalized soft tissue and bone right foot, bone involved proximal phalanx right hallux. Incision and debridement of nonviable soft tissue down to and including muscle, tendon and bone with insertion of antibiotic impregnated cement spacer was perfromed on this day. Patient now has a wound vac placed today. OR cx remains negative, however wound cx from 08/11 shows MSSA and grp G streptococcus. Arterial duplex without any high grade occlusion, venous duplex without DVT. 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 There has been no indication for chronic suppression in the past. Review of Systems General: Reports: 10 or more systems reviewed and unremarkable except in HPI and below Const: Denies: fever(s), chills or body aches Eyes: Denies: change in vision, blurry vision or photophobia ENMT: Reports: hoarseness; Denies: throat pain, enlarged tonsils, odynophagia or nasal congestion Card: Denies: chest pain, palpitations, irregular heart rhythm, edema, swelling of feet/ankles, lightheadedness, pre-syncope, dyspnea on exertion or orthopnea Resp: Denies: dyspnea, productive cough, non-productive cough, wheezing, stridor, pain on inspiration, change in phlegm color, hemoptysis or chest congestion GI: Denies: abdominal pain, nausea, vomiting, hematemesis, coffee ground em esis, dysphagia, heartburn, diarrhea, constipation, GI cramping, change in stool character, hematochezia or melena : Denies: flank pain, dysuria, urinary frequency, urinary urgency, urinary hesitancy or hematuria Musc: Denies: neck pain, back pain, extremity pain, joint swelling, joint w armth or deformity Neuro: Denies: headache(s), numbness in extremities, weakness in extremities, sensory changes, difficulty walking, frequent falls, dizziness, vertigo, behavioral changes, Slurred speech present or seizure-like activity Psych: Denies: anxiety, depression, suicidal ideation or homicidal ideation Endo: Denies: polyuria, polydipsia, tired all the time, cold intolerance or hot flashes Edmundo/Lymph: Denies: easy bruising or easy bleeding Meds/Allergies Home Medications and Allergies Home Medications Medication Instructions Recorded Confirmed Last Taken Type Zemplar 1 mcg PO DAILY 08/11/20 08/11/20 08/11/20 History allopurinol 300 mg PO DAILY 08/11/20 08/11/20 08/11/20 History amlodipine 10 mg PO DAILY 08/11/20 08/11/20 08/11/20 History aspirin 81 mg PO DAILY 08/11/20 08/11/20 08/11/20 History atorvastatin 20 mg PO DAILY 08/11/20 08/11/20 08/11/20 History cephalexin 500 mg PO BID 08/11/20 08/11/20 08/11/20 History citalopram 20 mg PO BEDTIME 08/11/20 08/11/20 08/10/20 History clonidine HCl 0.1 mg PO BID 08/11/20 08/11/20 08/11/20 History cyclobenzaprine 5 mg PO Q8H PRN 08/11/20 08/11/20 Unknown History doxycycline hyclate 100 mg PO DAILY 08/11/20 08/11/20 08/11/20 History ergocalciferol (vitamin D2) 1,250 mcg PO Q7D 08/11/20 08/11/20 08/11/20 History levothyroxine 150 mcg PO DAILY 12/10/3008/11/20 08/11/20 History losartan 100 mg PO DAILY 08/11/20 08/11/20 08/10/20 History megestrol 40 mg PO DAILY 08/11/20 08/11/20 08/11/20 History mupirocin calcium See Rx Instructions .ROUTE .COMPLEX 08/11/20 08/11/20 Unknown History pantoprazole 40 mg PO DAILY 08/11/20 08/11/20 08/11/20 History peritoneal dialysis solution See Rx Instructions .ROUTE .COMPLEX 08/11/20 08/11/20 08/10/20 History torsemide 100 mg PO DAILY 08/11/20 08/11/20 08/11/20 History tramadol 50 mg PO Q8H PRN 08/11/20 08/11/20 Unknown History ceftriaxone 1 g IV DAILY #42 ea 08/18/20 Unknown Rx glipizide 7.5 mg PO DAILY 30 Days #45 tab 08/18/20 08/11/20 08/11/20 Rx metoprolol tartrate 75 mg PO BID 30 Days #90 tab 08/18/20 Unknown Rx Allergies Allergy/AdvReac Type Severity Reaction Status Date / Time No Known Allergies Allergy Verified 08/11/20 15:56 Current Medications Current Medications Generic Name Dose Route Start Last Admin Trade Name Freq PRN Reason Stop Dose Admin Hydrocodone Bitart/Acetaminophen 1 tab 08/11/20 23:58 08/17/20 17:31 Hydrocodone-Acetaminophen 5-325 Mg Tablet PO 1 tab Q4H PRN Administration MODERATE TO SEVERE PAIN Allopurinol 300 mg 08/12/20 09:00 08/18/20 08:35 Allopurinol 300 Mg Tablet PO 300 mg DAILY MARIANELA Administration Amlodipine Besylate 10 mg 08/14/20 09:00 08/18/20 08:35 Amlodipine 10 Mg Tablet PO 10 mg DAILY MARIANELA Administration Aspirin 81 mg 08/12/20 09:00 08/18/20 08:35 Aspirin 81 Mg Ec Tablet PO 81 mg DAILY MARIANELA Administration Atorvastatin Calcium 20 mg 08/12/20 09:00 08/18/20 08:35 Atorvastatin 40 Mg Tablet PO 20 mg DAILY MARIANELA Administration Calcium Acetate 1,334 mg 08/12/20 18:00 08/18/20 08:31 Calcium Acetate 667 Mg Capsule PO 1,334 mg TIDWM MARIANELA Administration Citalopram Hydrobromide 20 mg 08/12/20 21:00 08/17/20 22:00 Citalopram 20 Mg Tablet PO 20 mg BEDTIME MARIANELA Administration Clonidine HCl 0.1 mg 08/12/20 09:00 08/18/20 08:32 Clonidine 0.1 Mg Tablet PO 0.1 mg BID MARIANELA Administration Cyclobenzaprine HCl 5 mg 08/11/20 23:54 08/14/20 22:59 Cyclobenzaprine 10 Mg Tablet PO 5 mg Q8H PRN Administration muscle spasms Ergocalciferol 50,000 unit 08/18/20 09:00 08/18/20 08:32 Ergocalciferol (Vitamin D2) 50,000 Unit Capsule PO 50,000 unit Q7D MARIANELA Administration Heparin Sodium (Beef Lung) 5,000 unit 08/11/20 23:45 08/18/20 00:03 Heparin 5,000 Unit/Ml Inj 1 Ml SUBCUT 5,000 unit Q12H MARIANELA Administration Hydralazine HCl 10 mg 08/14/20 05:14 08/14/20 15:06 Hydralazine 20 Mg/Ml Inj 1 Ml IVP 10 mg Q6H PRN Administration SYSTOLIC BLOOD PRESSURE Iron Sucrose 200 mg/ Sodium 110 mls @ 220 mls/hr 08/14/20 12:00 08/17/20 11:26 Chloride IV 08/18/20 12:29 220 mls/hr Q24H MARIANELA Administration Insulin Aspart 0 unit 08/12/20 08:00 08/18/20 09:00 Insulin Aspart 100 Unit/1 Ml SUBCUT 2 unit WM&BEDTIME MARIANELA Administration Protocol Levothyroxine Sodium 150 mcg 08/12/20 09:00 08/18/20 08:35 Levothyroxine 150 Mcg Tablet PO 150 mcg DAILY MARIANELA Administration Losartan Potassium 100 mg 08/12/20 09:00 08/18/20 08:36 Losartan 50 Mg Tablet PO 100 mg DAILY MARIANELA Administration Megestrol Acetate 40 mg 08/12/20 09:00 08/18/20 08:34 Megestrol 40 Mg Tablet PO 40 mg DAILY MARIANELA Administration Metoprolol Tartrate 75 mg 08/16/20 18:00 08/18/20 08:36 Metoprolol Tartrate 50 Mg Tablet PO 75 mg BID MARIANELA Administration Non-Formulary Medication 1 mcg 08/13/20 09:00 08/18/20 08:37 Paricalcitol [Zemplar] PO 1 mcg DAILY MARIANELA Administration Pantoprazole Sodium 40 mg 08/12/20 09:00 08/18/20 08:[address] 40 Mg Tablet PO 40 mg BID MARIANELA Administration Peritoneal Dialysis Solution 2,000 ml 08/12/20 01:00 08/18/20 08:38 Dianeal Low Ca W/2.5% Dex 2,000 Ml Bag INTRAPERIT 2,000 ml Q6H MARIANELA Administration Torsemide 100 mg 08/12/20 09:00 08/18/20 08:30 Torsemide 20 Mg Tablet PO 100 mg DAILY MARIANELA Administration PFSH Acute PFSH: Medical History Anemia Atrial fibrillation with RVR Atrial fibrillation, chronic Diabetes Diabetic neuropathy Elevated troponin End stage renal disease -on peritoneal dialysis Gout Hypertension Hypothyroidism Morbid obesity Surgical History Presence of Watchman left atrial appendage closure device Vitals/I&O/Wt Last Vital Signs Temp 98.9 F 08/18/20 11:08 Pulse 80 08/18/20 11:08 Resp 18 08/18/20 11:08 BP 146/82 08/18/20 11:08 Pulse Ox 97 08/18/20 11:08 08/17/20 08/18/20 08/18/20 22:59 06:59 14:59 Intake Total 50 / 700 240 / 240 Output Total 600 / 800 500 / 1300 200 / 200 Balance -600 / -150 -450 / -600 40 / 40 Weight last 48 hrs Weight 140.205 kg Weight 140.205 kg Weight 140.205 kg Physical Exam Narrative: EXAM NARRATIVE: GEN: Awake, alert and oriented, no acute distress CVS: S1S2 N RS: CTA B/L Abd: Soft, nt/nd , bs+ WAGE HAND: no focal neuro deficits EXT: RLE with wound vac in place, not opened for exam Data 2 Micro: Micro: Microbiology 08/15/20 10:00 Gram Stain - Final Foot - #1 Tissue Culture - F inal A&P Assessment and plan (1) Osteomyelitis: Status: Acute Qualifiers: Osteomyelitis type: other chronic Osteomyelitis location: foot Laterality: right Qualified Code(s): M86.671 - Other chronic osteomyelitis, right ankle and foot (2) Diabetic foot ulcer associated with type 2 diabetes mellitus: Status: Acute Qualifiers: Diabetic foot ulcer location: toe Laterality: right Non-pressure ulcer stage: with necrosis of muscle Qualified Code(s): E11.621 - Type 2 diabetes mellitus with foot ulcer; L97.513 - Non-pressure chronic ulcer of other part of right foot with necrosis of muscle (3) Gangrene associated with type 2 diabetes mellitus: Status: Acute Additional A&P Information Patient with HPI as noted above p/w worsening foot ulceration and diabeteic foot gangrene, findings after debridement included extension of changes up to name for which he underwent incision and debridement of nonviable soft tissue down to and including muscle, tendon and bone with insertion of antibiotic impregnated cement spacer on 08/15/20. Tolerated procdeure well NO evidence of aretrial or venous insufficiency Treated with Zosyn and Vancomycin while inpatient, together with debridement, resulted in improvement of cellulitis. Wound cx with MSSA and grp G strep , OR cx sterile Picc line placed Recommend discharge on Ceftriaxone 1g iv q24h over the next 6 weeks, spectrum narrowed based on available cx data Patient is following closely with Dr. Woodall as outpatient While on abx obtain weekly CBC, CMP and ESR , fax to ID clinic f/up in ID clinic in 4-6 weeks. Coding Level of Care Code Acute Molecular Biology Director for [facility] Fwd Diagnoses Osteomyelitis M86.671 Osteomyelitis type: other chronic Osteomyelitis location: foot Laterality: right Diabetic foot ulcer associated with type 2 diabetes mellitus E11.621; L97.513 Diabetic foot ulcer location: toe Laterality: right Non-pressure ulcer stage: with necrosis of muscle Gangrene associated with type 2 diabetes mellitus E11.52
--- NOTE | 2020-08-18 11:40 | PC.NURSE ---
Pt unaware that stool sample is needed. Will notify when urge present.
--- NOTE | 2020-08-18 12:00 | PC.NURSE ---
Dr Woodall was at bedside applying wound vac.
[2020-08-18] MEDS: cefTRIAXone 1,000 MG in sodium chloride 0.9% (plus) 50 ML 100 MG IV (12:33)
--- NOTE | 2020-08-18 12:34 | PM.PN ---
Subjective Subjective: Interval history: Patient seen bedside this morning, he is 3 days status post incision and debridement down to bone with insertion of antibiotic impregnated cement spacer right first metatarsophalangeal joint secondary to gas gangrene. Patient doing well postoperatively. Denies any pain to the right lower extremity. Tolerating regular diet. Denies any acute events overnight. Vitals/I&O/Wt Last Vital Signs Temp 98.9 F 08/18/20 11:08 Pulse 80 08/18/20 11:08 Resp 18 08/18/20 11:08 BP 146/82 08/18/20 11:08 Pulse Ox 97 08/18/20 11:08 08/17/20 08/18/20 08/18/20 22:59 06:59 14:59 Intake Total 50 / 700 240 / 240 Output Total 600 / 800 500 / 1300 200 / 200 Balance -600 / -150 -450 / -600 40 / 40 Weight last 48 hrs Weight 309 lb 1.6 oz Weight 309 lb 1.6 oz Weight 309 lb 1.6 oz Physical Exam Narrative: EXAM NARRATIVE: Patient is alert and oriented ?3 and in no acute distress. The following is a focused bilateral lower extremity exam. VASCULAR: Dorsalis pedis and posterior tibial arteries palpable +1 bilaterally. Capillary refill time less than 5 seconds to the distal hallux bilaterally. Calf is supple and nontender proximally and distally. Diminished hair growth at legs and feet bilaterally, no hair growth appreciated to the level to dorsal toes. +1 pitting edema to the lower extremities. Palpable +1 popliteal artery bilaterally. NEUROLOGICAL: Protective sensation intact 0/10 sites, tested with [place] Sergei monofilament to bilateral feet. DERMATOLOGICAL: Wound to the medial aspect of the right first metatarsal phalangeal joint measures 4 cm x 4.5 cm x 0.5 cm, no purulent drainage, no periwound erythema, no malodor. No proximal lymphangitic streaking. Able to visualize simplex P antibiotic spacer with tobramycin. No active bleeding. MUSCULOSKELETAL: Muscle strength is 5 out of 5 in all 3 cardinal planes to bilateral foot and ankle. Pes planus foot type bilaterally. Ankle joint dorsiflexion is to neutral bilaterally. Reducible hammertoe deformities 2 through 5 bilaterally. Mild hallux abductovalgus deformity bilaterally, hallux is not track bound. Data : 08/16/20 05:01 08/16/20 05:01 Micro: Microbiology 08/15/20 10:00 Gram Stain - Final Foot - #1 Tissue Culture - Final A&P Assessment and plan (1) End stage renal disease: Status: Chronic (2) Gangrene associated with type 2 diabetes mellitus: Status: Acute (3) Non-pressure chronic ulcer of other part of right foot with necrosis of muscle: Status: Acute Mr. Bonilla is a pleasant 65-year-old diabetic male with gas gangrene right foot, history of end-stage renal disease on peritoneal dialysis. He is 3 days status post incision and debridement down to and including bone with insertion of cement spacer right first metatarsophalangeal joint doing well postoperatively. -No further surgical debridement anticipated during his hospitalization. -Patient is okay for discharge planning from podiatry standpoint. -Patient currently receiving empiric IV antibiotics vancomycin and Zosyn both renally dosed. Bone culture taken intraoperatively 08/15/2020, will narrow antibiotics once cultures reveal further information, appreciate infectious disease consultation and management. Wound swab taken in the emergency department grew strep G and MSSA, bone culture taken intraoperatively may be suppressed due to antibiotic therapy proceeding procedure. -Patient may do protected weightbearing with Ortho heel Darco shoe for transfers to the right lower extremity otherwise is to elevate his right foot while at rest. -Wound VAC applied today with excellent seal acetic continuous 125 mmHg negative pressure. Wound VAC in place, PICC line in place, has offloading Darco shoe may utilize for transfers, patient would benefit from a walker and a shower chair. Appreciate Dr. Hackett for antibiotic recommendation and management. Follow-up in podiatry clinic on 08/20/2020 @ 11:00am for wound vac dressing change and continued care. Attestations Medical Necessity Statement*: Diabetic foot ulcer Coding Level of Care Code Acute Associate Product Integrity Engineer for [facility] Fwd Diagnoses End stage renal disease N18.6 Gangrene associated with type 2 diabetes mellitus E11.52 Non-pressure chronic ulcer of other part of right foot with necrosis of muscle L97.513
[2020-08-18 12:40] LABS: Basophils % 0.2 %; Eosinophils # 0.2 10^3/uL (0.0-0.8); Eosinophils % 1.6 %; Hematocrit 24.7 % (42.0-52.0); Lymphocytes # 0.7 10^3/uL (0.8-4.8); Lymphocytes % 5.7 %; Mean Corpuscular HGB Conc 32.4 g/dL (30.0-36.0); Mean Corpuscular Hemoglobin 29.7 pg (28.0-34.0); Mean Corpuscular Volume 91.8 fL (80-94); Mean Platelet Volume 9.8 fL (7.4-10.4); Monocytes # 1.1 10^3/uL (0.2-0.9); Monocytes % 8.3 %; Neutrophils % 83.1 %; Nucleated Red Blood Cells % 0 %; Platelet Count 238 10^3/cmm (130-400); Red Blood Count 2.69 10^6/uL (4.1-5.3); Red Cell Distribution Width 14.8 % (12.1-15.1); White Blood Count 12.8 10^3/uL (4.0-10.0)
[2020-08-18 13:00] LABS: Alanine Aminotransferase 24 U/L (0-41); Albumin Level 2.3 g/dL (3.5-5.2); Alkaline Phosphatase 86 IU/L (40-130); Anion Gap 17.3 (5-19); Aspartate Amino Transferase 17 U/L (0-40); Blood Urea Nitrogen 39 mg/dL (8-23); Calcium 8.8 mg/dL (8.5-10.5); Carbon Dioxide 23 mmol/L (22-29); Chloride 97 mmol/L (98-107); Globulin 3.4 g/dL (1.3-4.6); Glomerular Filtration Rate 9.1 mL/min (90-130); Glucose 185 mg/dL (65-115); Osmolality Calculated 292 mOsm/kg (285-295); Potassium 3.3 mmol/L (3.5-5.1); Sodium 134 mmol/L (136-145); Total Bilirubin 0.2 mg/dL (0.15-1.2); Total Protein 5.7 g/dL (6.6-8.7)
--- NOTE | 2020-08-18 13:16 | PM.DCS ---
Discharge Providers Date of Admission: 08/11/20 21:49 Date of Discharge: August 18, 2020 Attending Provider at Admission: Lawrence Gibbons MD Attending Provider at Discharge: Kory Sosa MD Consults: Podiatry: Dr. Woodall Orthopedics: Dr. Coyne ID: Dr. Hackett Nephrology: Telemetry nephrology Primary Care Provider: Anmol Santiago Diagnoses at Discharge Discharge Diagnosis (1) End stage renal disease: Status: Chronic Permanent problem details: -on peritoneal dialysis (2) Gangrene associated with type 2 diabetes mellitus: Status: Acute (3) Non-pressure chronic ulcer of other part of right foot with necrosis of muscle: Status: Acute Reason for Visit Reason for Visit: R FOOT PAIN Hospital Course Hospital Course Levi Bonilla is a 65 year old male with past medical history of hypertension diabetes, end-stage renal disease on peritoneal dialysis, Covid pneumonia 07/2020 (was admitted in [facility] for about a week and then discharged), gout, A. fib, status post watchman device placement currently on aspirin only (off anticoagulation post watchman device placement ) hypothyroidism came in with chief complaint of acute onset of tenderness drainage sore that is appeared on his right big toe at the base just the last day and a half, he denies any injury, any insect bite, any pain, any abnormal sensation, any fever. He has longstanding diabetic peripheral neuropathy with abnormal sensory loss in both the lower extremity, Charcot's foot is a possibility. Upon arrival in the ER he was worked up for diabetic foot ulcer. Patient was admitted to the floor and was started on broad-spectrum antibiotics for suspicion of osteomyelitis. Podiatry was consulted and patient was in the OR for incision and debridement down to bone with insertion of antibiotic impregnated cement spacer at right first metatarsophalangeal joint secondary to gas gangrene on August 15. Patient's wound culture from admission was growing MSSA and follow-up cultures remain negative. PICC line was placed on August 16. Patient tolerated the procedure well. His hospital stay was unremarkable. Wound VAC was placed on August 18, 2020. He has been discharged hemodynamically stable condition with advice to be on IV ceftriaxone for next 6 weeks for osteomyelitis as per the culture sensitivities from wound. He is to follow-up with Dr. Woodall in 1 week and with ID clinic in 4 weeks. While being on antibiotics he is to have CBC and CMP every weekly. Physical Exam Narrative: EXAM NARRATIVE: General: No acute distress, AO x3, morbidly obese HEENT: PERRLA, pupils bilaterally equal and reactive Chest: Normal vesicular breath sounds, no added sounds, equal good air entry bilaterally CVS: S1-S2 regular, no murmurs, no tachycardia, no gallops, no rubs Abdomen: Soft, nontender, no organomegaly, bowel sounds present Neuro: No focal deficits, no facial deformity, AO x3, power 5/5 in all limbs Extremities: Right foot surgically bandaged, and boot, no erythema on the leg Discharge Data Data Completed and Pending: Completed Studies During Hospitalization Category Date Time Status CT foot RT wo con * [id number] Urgent Cat Scan 08/11/20 17:44 Completed XR chest 1V ankur ble [id number] Routine Exams 08/16/20 08:50 Completed XR chest 1V ankur ble [id number] Stat Exams 08/11/20 18:46 Completed XR foot RT min 3V * [id number] Routine Exams 08/15/20 10:36 Completed XR foot RT min 3V * [id number] Stat Exams 08/11/20 15:54 [place] [id number] Rout ine Ultrasound 08/14/20 15:42 [place] [id number] Stat Ultrasound 08/11/20 20:29 Completed Pending at discharge Category Date Time Status Immunochemical Fe anne OCB Routine Lab 08/12/20 05:19 Uncollected Labs from last 24 hours 08/18/20 08/18/20 08/18/20 12:30 12:30 06:33 WBC 12.8 H RBC 2.69 L Hgb 8.0 L Hct 24.7 L MCV 91.8 MCH 29.7 MCHC 32.4 RDW 14.8 Plt Count 238 MPV 9.8 Neut % (Auto) 83.1 Lymph % (Auto) 5.7 [place] % (Auto) 8.3 Eos % (Auto) 1.6 Baso % (Auto) 0.2 Neut # (Auto) 10.60 H Lymph # (Auto) 0.7 L [place] # (Auto) 1.1 H Eos # (Auto) 0.2 Baso # (Auto) 0.0 Nucleated RBC % (a uto) 0 Nucleated RBCs # 0.0 Sodium 134 L Potassium 3.3 L Chloride 97 L Carbon Dioxide 23 Anion Gap 17.3 BUN 39 H Creatinine 6.2 H* GFR Calculation 9.1 L Glucose 185 H POC Glucose 156 Estimat Average Gl ucose Hemoglobin A1c Calculated Osmolal ity 292 Calcium 8.8 Total Bilirubin 0.2 AST 17 ALT 24 Alkaline Phosphata se 86 Total Protein 5.7 L Albumin 2.3 L Globulin 3.4 08/17/20 08/17/20 08/16/20 21:21 17:14 05:01 WBC RBC Hgb Hct MCV MCH MCHC RDW Plt Count MPV Neut % (Auto) Lymph % (Auto) [place] % (Auto) Eos % (Auto) Baso % (Auto) Neut # (Auto) Lymph # (Auto) [place] # (Auto) Eos # (Auto) Baso # (Auto) Nucleated RBC % (a uto) Nucleated RBCs # Sodium Potassium Chloride Carbon Dioxide Anion Gap BUN Creatinine GFR Calculation Glucose POC Glucose 220 147 Estimat Average Gl ucose 137 Hemoglobin A1c 6.4 H Calculated Osmolal ity Calcium Total Bilirubin AST ALT Alkaline Phosphata se Total Protein Albumin Globulin Vitals: Last Vital Signs Temp 98.9 F 08/18/20 11:08 Pulse 80 08/18/20 11:08 Resp 18 08/18/20 11:08 BP 146/82 08/18/20 11:08 Pulse Ox 97 08/18/20 11:08 Discharge Plan Discharge Patient Disposition: Home Health Service Condition: Stable Prescriptions: New metoprolol tartrate 50 mg Tablet 75 mg PO BID 30 Days Qty: 90 RF: 0 ceftriaxone 1 gram recon soln 1 g IV DAILY Qty: 42 RF: 0 Continued cyclobenzaprine 10 mg tablet 5 mg PO Q8H PRN (Reason: muscle spasms) RF: 0 torsemide 100 mg tablet 100 mg PO DAILY RF: 0 cephalexin 500 mg capsule 500 mg PO BID RF: 0 levothyroxine 150 mcg tablet 150 mcg PO DAILY RF: 0 megestrol 40 mg tablet 40 mg PO DAILY RF: 0 mupirocin calcium 2 % cream See Rx Instructions .ROUTE .COMPLEX RF: 0 ergocalciferol (vitamin D2) 1,250 mcg (50,000 unit) capsule 1,250 mcg PO Q7D RF: 0 losartan 100 mg tablet 100 mg PO DAILY RF: 0 doxycycline hyclate 100 mg tablet 100 mg PO DAILY RF: 0 atorvastatin 20 mg tablet 20 mg PO DAILY RF: 0 tramadol 50 mg tablet 50 mg PO Q8H PRN (Reason: Pain) RF: 0 citalopram 20 mg tablet 20 mg PO BEDTIME RF: 0 amlodipine 10 mg tablet 10 mg PO DAILY RF: 0 pantoprazole 40 mg tablet,delayed release (DR/EC) 40 mg PO DAILY RF: 0 allopurinol 300 mg tablet 300 mg PO DAILY RF: 0 clonidine HCl 0.1 mg tablet 0.1 mg PO BID RF: 0 aspirin 81 mg Tablet 81 mg PO DAILY RF: 0 Zemplar 1 mcg Capsule 1 mcg PO DAILY RF: 0 peritoneal dialysis solution See Rx Instructions .ROUTE .COMPLEX RF: 0 Changed glipizide 5 mg tablet 7.5 mg PO DAILY 30 Days Qty: 45 RF: 0 Discontinued metoprolol tartrate 50 mg tablet 50 mg PO BID RF: 0 Discharge Orders: Discharge Order (Routine); Ordered 08/18/20 Ordered By: Kory Sosa Referrals: [facility] [Other] (This is the infusion pharmacy that will be provided your IV medication. If you have any questions regarding delivery or payments of your IV medication, you may call them at the phone number provided.) [facility] [Other] (This is the [facility] that is providing your wound vac and supplies. If you have any questions or concerns, you may call them at the phone number provided. ) [facility] ([facility]) [Outside] Anmol Santiago [Primary Care Provider] - 2 weeks Frankie Woodall DPM [Physician] - 08/20/20 11:00 am Day Hackett MD [Hospitalist] - 1 month Discharge Diet: Cardiac and Diabetic Discharge Activity: Limit activity as instructed Patient Instructions: Ceftriaxone (Injection), Acute Wound Care (GEN) Activity Restrictions/Additional Instructions: Ceftriaxone 1 g IV daily for next 6 weeks. Check CBC and CMP weekly while on antibiotics. Follow-up with Dr. Woodall in 2 days for wound VAC dressing change and continued care, follow-up with ID clinic in 4 weeks. Follow-up with your primary care provider within next 2 weeks. Your dose of metoprolol and glipizide have been increased. Patient may do protected weightbearing with Ortho heel Darco shoe for transfers to the right lower extremity otherwise is to elevate his right foot while at rest.offloading Darco shoe may utilize for transfers, patient would benefit from a walker and a shower chair. Discharge Attestations Time Spent in Discharge Care*: greater than 30 min Specific Discharge Activities: educating patient, discussing with pcp/other providers, discussing with case briefer/social workers/dc planners, documenting/other paperwork and evaluating patient/reviewing data Status at Discharge: Cognitive status at discharge: cognitively intact, Behavioral status at discharge: cooperative, Functional status at discharge: other assisted ambulation Overall status at discharge: patient is progressing back to baseline Quality Metrics Clinical Quality Measures During this hospital stay, did patient experience: None Coding Level of Care Code Acute Fire Extinguisher Mechanic for Joseg Fwd Diagnoses End stage renal disease N18.6 Gangrene associated with type 2 diabetes mellitus E11.52 Non-pressure chronic ulcer of other part of right foot with necrosis of muscle L97.513
--- NOTE | 2020-08-18 13:31 | PC.SOCIAL ---
IMM Updated Page 2 of IMM updated and given to patient. Initialed, dated, and timed and placed back in chart.
[2020-08-18] MEDS: iron sucrose 200 MG in sodium chloride 0.9% (100 ml) 100 ML 220 MG IV (14:37)
[2020-08-18 17:35] LABS: Glucose Point of Care 159 mg/dL (70-110)
== END 2020-08-18 19:00 | disposition home health service (06) | DRG 981 ==
LOC: ER 18:53 → ICU 21:50 → MEDSURG 08-13 16:42
PROVIDERS: Emergency Medicine; Family Medicine; Internal Medicine Nephrology; Podiatrist Foot & Ankle Surgery; Admitting Provider Internal Medicine; Emergency Provider Emergency Medicine; PCP Physician Assistant Medical; Visit Provider Student in an Organized Health Care Education/Training Program
PROC: 0QBQ0ZZ Excision of Right Toe Phalanx, Open Approach (ICD-10-PCS; principal; 2020-08-15 09:15)
DX: I48.91 Unspecified atrial fibrillation (principal); A48.0 Gas gangrene; N18.6 End stage renal disease; E11.52 Type 2 diabetes mellitus with diabetic peripheral angiopathy with gangrene; L03.115 Cellulitis of right lower limb; Z68.41 Body mass index [BMI] 40.0-44.9, adult; I24.8 Other forms of acute ischemic heart disease; E11.621 Type 2 diabetes mellitus with foot ulcer; D63.1 Anemia in chronic kidney disease; M10.9 Gout, unspecified; E11.22 Type 2 diabetes mellitus with diabetic chronic kidney disease; I12.9 Hypertensive chronic kidney disease with stage 1 through stage 4 chronic kidney disease, or unspecified chronic kidney disease; Z99.2 Dependence on renal dialysis; Z86.19 Personal history of other infectious and parasitic diseases; E03.9 Hypothyroidism, unspecified; Z79.82 Long term (current) use of aspirin; L97.513 Non-pressure chronic ulcer of other part of right foot with necrosis of muscle; E83.39 Other disorders of phosphorus metabolism; E11.42 Type 2 diabetes mellitus with diabetic polyneuropathy; E66.01 Morbid (severe) obesity due to excess calories
CPT/HCPCS: 12345; 36415; 36416; 36569; 36592; 71045; 73630; 73700; 80048; 80053; 80202; 81001; 81003; 82962; 83036; 83540; 83550; 83605; 83735; 84100; 84145; 84484; 85014; 85018; 85025; 85610; 85651; 85730; 86140; 86850; 86900; 86920; 87040; 87070; 87077; 87176; 87186; 87205; 87635; 90935; 93005; 93925; 93971; 96372; 96375; 97760; 99281; C9113; J0360; J0696; J1644; J1756; J1815; J2250; J2543; J2704; J3370; J3475; J3490; J7030; J7040; J8999; L3260; P9016; Q3014; Q4081

== ENCOUNTER 2020-08-24 10:13 | Emergency (ER) | payer MEDICARE, OTHER, SELFPAY ==
[2020-08-24 10:23] VITALS: BP 150/100; PULSE 105; RESP 20; TEMP 36.8; O2SAT 99; BMI 39.3
--- NOTE | 2020-08-24 10:34 | W.ED.RECABL ---
HPI - Recheck/Abnormal Lab/Rx General: Chief Complaint: Recheck/Abnormal Lab/Rx Stated Complaint: Picc Line Complications/Here Recently Time Seen by Provider: 08/24/20 10:28 Source: patient Mode of arrival: ambulatory Limitations: no limitations History of Present Illness: HPI narrative: Patient was referred to the ER by home health for concerns of migration of the PICC line. The dressing was changed on the PICC line and it was noticed that the cannula had displaced about 3 cm out of the skin. Patient denies any other issues with that denies any fever chills or nausea or vomiting. Patient at this time is receiving antibiotics for a infection in the foot. Review of Systems General: Reports: 10 or more systems reviewed and unremarkable except in HPI and below Narrative: Displacement of PICC line Musc: Reports: other (Chronic wound infection of the right foot) [facility] ED PFSH: Medical History Anemia Atrial fibrillation with RVR Atrial fibrillation, chronic Diabetes Diabetic neuropathy Elevated troponin End stage renal disease -on peritoneal dialysis Gout Hypertension Hypothyroidism Morbid obesity Surgical History Presence of Watchman left atrial appendage closure device Physical Exam Const: COMMON NORMALS: no acute distress and patient oriented x3 GENERAL APPEARANCE: cooperative HENMT: COMMON NORMALS: normocephalic and Normal external nose present HEAD & SCALP: normal to inspection and normocephalic NOSE: Normal external nose present MOUTH: Normal oral and palatal mucosa present Eye: GENERAL EYE: appearance normal, both eyes and all related structures Neck/C-Spine: COMMON NORMALS: full ROM Lymph: LYMPHATIC: no lymphadenopathy noted Chest: COMMONS NORMALS: normal inspection of the chest Resp: COMMON NORMALS: normal respiratory effort EFFORT & INSPECTION: Yes able to speak in complete sentences Cardio: COMMON NORMALS: regular rate and regular rhythm RATE: regular rate RHYTHM: regular rhythm GI: COMMON NORMALS: non-tender Back/Pelvis: COMMON NORMALS: thoracic and lumbar spine normal to inspection Extremity: COMMON NORMALS: normal to inspection Neuro: COMMON NORMALS: patient oriented x3 and moves all extremities Psych: COMMON NORMALS: mental status grossly normal and cooperative Skin: NARRATIVE SKIN EXAM: PICC line seems to be displaced about 2 to 3 cm. No redness is noted at the insertion site. Course Vital Signs: Vital signs: Vital Signs Temperature 98.2 F 08/24/20 10:23 Pulse Rate 105 H 08/24/20 10:23 Respiratory Rate 20 H 08/24/20 10:23 Blood Pressure 150/100 08/24/20 10:23 Pulse Oximetry 99 08/24/20 10:23 MDM - Recheck/Abnormal Lab/Rx MDM Narrative: Medical decision making narrative: Patient comes in for concerns of displacement of the PICC line. On exam patient has about 2 to 3 cm of the catheter coming out at the site. No signs of inflammation or infection is noted to the site. Differential diagnosis includes displacement of PICC line, clot PICC line, infection of the PICC line. Radiographic chest x-ray noted improved positioning of the PICC line with displacement approximately 2 cm from the atrium. Reviewed with PICC line nurse and radiology who agreed positioning was adequate. Explained to patient who agreed to continued care. Discharge Plan Discharge Patient Disposition: Home Clinical Impression: Displacement of peripherally inserted central catheter (PICC) Osteomyelitis Qualifiers: Osteomyelitis type: unspecified type Osteomyelitis location: foot Laterality: right Qualified Code(s): M86.9 - Osteomyelitis, unspecified Condition: Stable Prescriptions: No Action cyclobenzaprine 10 mg tablet 5 mg PO Q8H PRN (Reason: muscle spasms) RF: 0 torsemide 100 mg tablet 100 mg PO DAILY RF: 0 cephalexin 500 mg capsule 500 mg PO BID RF: 0 levothyroxine 150 mcg tablet 150 mcg PO DAILY RF: 0 megestrol 40 mg tablet 40 mg PO DAILY RF: 0 mupirocin calcium 2 % cream See Rx Instructions .ROUTE .COMPLEX RF: 0 ergocalciferol (vitamin D2) 1,250 mcg (50,000 unit) capsule 1,250 mcg PO Q7D RF: 0 losartan 100 mg tablet 100 mg PO DAILY RF: 0 doxycycline hyclate 100 mg tablet 100 mg PO DAILY RF: 0 atorvastatin 20 mg tablet 20 mg PO DAILY RF: 0 tramadol 50 mg tablet 50 mg PO Q8H PRN (Reason: Pain) RF: 0 citalopram 20 mg tablet 20 mg PO BEDTIME RF: 0 amlodipine 10 mg tablet 10 mg PO DAILY RF: 0 pantoprazole 40 mg tablet,delayed release (DR/EC) 40 mg PO DAILY RF: 0 allopurinol 300 mg tablet 300 mg PO DAILY RF: 0 clonidine HCl 0.1 mg tablet 0.1 mg PO BID RF: 0 aspirin 81 mg Tablet 81 mg PO DAILY RF: 0 Zemplar 1 mcg Capsule 1 mcg PO DAILY RF: 0 peritoneal dialysis solution See Rx Instructions .ROUTE .COMPLEX RF: 0 metoprolol tartrate 50 mg Tablet 75 mg PO BID 30 Days Qty: 90 RF: 0 ceftriaxone 1 gram recon soln 1 g IV DAILY Qty: 42 RF: 0 glipizide 5 mg tablet 7.5 mg PO DAILY 30 Days Qty: 45 RF: 0 Discharge Orders: Discharge ED (Routine); Ordered 08/24/20 Ordered By: Umang Cano Referrals: Anmol Santiago [Primary Care Provider] - Discharge Diet: Usual diet Discharge Activity: Increase activity as tolerated Patient Instructions: Peripherally Inserted Central Catheters and Midline Catheters (ED) Activity Restrictions/Additional Instructions: Continue with routine care. Coding Level of Care Code ED Polymerization Supervisor for Breanna Fwd Exam Comprehensive
--- NOTE | 2020-08-24 10:38 | XR_ITS ---
WS: [id number] XR chest 1V portable [id number] REASON FOR EXAM: picc line placement FINDINGS: Comparison examination 08/16/2020. There is a right arm PICC line in place. The tip is in the superior vena cava within 2 cm of the atri um. There is a PICC line present on the previous examination of 08/16/2020 with the tip in the right a trium. No other significant interval change. XR/XR chest 1V portable [id number] IMPRESSION: Right arm PICC line in position as above. Either a new right arm PICC line or r etraction of the PICC line is seen 08/16/2020.
[2020-08-24 11:30] VITALS: PULSE 68; RESP 18; O2SAT 100
== END 2020-08-24 11:32 | disposition home or self-care (01) ==
PROVIDERS: Emergency Provider Nurse Practitioner Family; PCP Physician Assistant Medical
DX: T82.898A Other specified complication of vascular prosthetic devices, implants and grafts, initial encounter (principal); M86.9 Osteomyelitis, unspecified; Z79.82 Long term (current) use of aspirin
CPT/HCPCS: 12345; 71045; 99281; 99282

== ENCOUNTER 2020-08-27 15:57 | Outpatient (CLI) | payer MEDICARE, SELFPAY ==
[2020-08-27 16:59] LABS: Basophils # 0.1 10^3/uL (0.0-0.1); Basophils % 0.4 %; Eosinophils # 0.5 10^3/uL (0.0-0.8); Eosinophils % 4.7 %; Hemoglobin 7.7 g/dL (11.7-16.6); Lymphocytes # 1.1 10^3/uL (0.8-4.8); Lymphocytes % 9.8 %; Mean Corpuscular HGB Conc 30.8 g/dL (30.0-36.0); Mean Corpuscular Hemoglobin 29.4 pg (28.0-34.0); Mean Corpuscular Volume 95.4 fL (80-94); Mean Platelet Volume 10.8 fL (7.4-10.4); Monocytes # 1.3 10^3/uL (0.2-0.9); Monocytes % 11.7 %; Neutrophils # 8.06 10^3/uL (1.8-7.7); Neutrophils % 72.2 %; Nucleated Red Blood Cells % 0 %; Platelet Count 270 10^3/cmm (130-400); Red Blood Count 2.62 10^6/uL (4.1-5.3); Red Cell Distribution Width 15.3 % (12.1-15.1); White Blood Count 11.2 10^3/uL (4.0-10.0)
[2020-08-27 17:16] LABS: Alanine Aminotransferase 21 U/L (0-41); Albumin Level 2.7 g/dL (3.5-5.2); Alkaline Phosphatase 106 IU/L (40-130); Aspartate Amino Transferase 15 U/L (0-40); Blood Urea Nitrogen 56 mg/dL (8-23); Carbon Dioxide 22 mmol/L (22-29); Chloride 96 mmol/L (98-107); Globulin 3.4 g/dL (1.3-4.6); Glucose 124 mg/dL (65-115); Osmolality Calculated 299 mOsm/kg (285-295); Sodium 136 mmol/L (136-145); Total Bilirubin 0.2 mg/dL (0.15-1.2); Total Protein 6.1 g/dL (6.6-8.7)
[2020-08-27 17:18] LABS: Anion Gap 21.9 (5-19); Potassium 3.9 mmol/L (3.5-5.1)
[2020-08-27 17:30] LABS: Erythrocyte Sedimentation Rate > 120 mm/hr (0-10)
== END 2020-08-27 15:58 | disposition home or self-care (01) ==
PROVIDERS: PCP Physician Assistant Medical; Visit Provider Podiatrist Foot & Ankle Surgery
DX: E11.9 Type 2 diabetes mellitus without complications (principal)
CPT/HCPCS: 80053; 85025; 85651

== ENCOUNTER 2020-09-02 08:59 | Outpatient (CLI) | payer MEDICARE, SELFPAY ==
[2020-09-02 09:31] LABS: Basophils # 0.1 10^3/uL (0.0-0.1); Basophils % 0.4 %; Eosinophils # 0.5 10^3/uL (0.0-0.8); Eosinophils % 4.2 %; Hematocrit 25.1 % (42.0-52.0); Hemoglobin 7.8 g/dL (11.7-16.6); Lymphocytes # 0.9 10^3/uL (0.8-4.8); Lymphocytes % 7.7 %; Mean Corpuscular HGB Conc 31.1 g/dL (30.0-36.0); Mean Corpuscular Hemoglobin 29.1 pg (28.0-34.0); Mean Corpuscular Volume 93.7 fL (80-94); Mean Platelet Volume 10.6 fL (7.4-10.4); Monocytes # 0.9 10^3/uL (0.2-0.9); Monocytes % 7.5 %; Neutrophils # 9.18 10^3/uL (1.8-7.7); Nucleated Red Blood Cells % 0 %; Platelet Count 211 10^3/cmm (130-400); Red Blood Count 2.68 10^6/uL (4.1-5.3); Red Cell Distribution Width 15.7 % (12.1-15.1); White Blood Count 11.6 10^3/uL (4.0-10.0)
[2020-09-02 09:56] LABS: Alanine Aminotransferase 16 U/L (0-41); Albumin Level 2.7 g/dL (3.5-5.2); Alkaline Phosphatase 140 IU/L (40-130); Aspartate Amino Transferase 16 U/L (0-40); Blood Urea Nitrogen 69 mg/dL (8-23); Carbon Dioxide 21 mmol/L (22-29); Chloride 93 mmol/L (98-107); Globulin 3.3 g/dL (1.3-4.6); Glomerular Filtration Rate 8.8 mL/min (90-130); Glucose 177 mg/dL (65-115); Osmolality Calculated 298 mOsm/kg (285-295); Sodium 132 mmol/L (136-145); Total Bilirubin 0.2 mg/dL (0.15-1.2)
[2020-09-02 10:07] LABS: Anion Gap 21.4 (5-19); Potassium 3.4 mmol/L (3.5-5.1)
[2020-09-02 10:28] LABS: Erythrocyte Sedimentation Rate > 120 mm/hr (0-10)
== END 2020-09-02 09:00 | disposition home or self-care (01) ==
PROVIDERS: PCP Physician Assistant Medical; Visit Provider Podiatrist Foot & Ankle Surgery
DX: E11.9 Type 2 diabetes mellitus without complications (principal)
CPT/HCPCS: 80053; 85025; 85651

== ENCOUNTER → 2020-09-07 13:56 | Outpatient (BNVA) | payer MEDICARE, OTHER, SELFPAY | PROVIDERS: PCP Physician Assistant Medical; Visit Provider Podiatrist Foot & Ankle Surgery | DX: L97.514 Non-pressure chronic ulcer of other part of right foot with necrosis of bone (principal); X58.XXXA Exposure to other specified factors, initial encounter | CPT/HCPCS: 73630 ==

== ENCOUNTER 2020-09-09 16:19 | Outpatient (CLI) | payer MEDICARE, SELFPAY ==
[2020-09-09 16:46] LABS: Basophils % 0.3 %; Eosinophils # 0.3 10^3/uL (0.0-0.8); Hematocrit 24.1 % (42.0-52.0); Hemoglobin 7.3 g/dL (11.7-16.6); Lymphocytes # 0.6 10^3/uL (0.8-4.8); Lymphocytes % 6.2 %; Mean Corpuscular HGB Conc 30.3 g/dL (30.0-36.0); Mean Corpuscular Volume 95.6 fL (80-94); Mean Platelet Volume 10.7 fL (7.4-10.4); Neutrophils # 8.17 10^3/uL (1.8-7.7); Neutrophils % 79.8 %; Nucleated Red Blood Cells % 0 %; Platelet Count 186 10^3/cmm (130-400); Red Blood Count 2.52 10^6/uL (4.1-5.3); White Blood Count 10.2 10^3/uL (4.0-10.0)
[2020-09-09 17:07] LABS: Alanine Aminotransferase 24 U/L (0-41); Albumin Level 2.7 g/dL (3.5-5.2); Alkaline Phosphatase 103 IU/L (40-130); Anion Gap 18.4 (5-19); Aspartate Amino Transferase 19 U/L (0-40); Blood Urea Nitrogen 65 mg/dL (8-23); Calcium 8.9 mg/dL (8.5-10.5); Carbon Dioxide 24 mmol/L (22-29); Chloride 91 mmol/L (98-107); Globulin 3.3 g/dL (1.3-4.6); Glomerular Filtration Rate 7.5 mL/min (90-130); Glucose 143 mg/dL (65-115); Osmolality Calculated 291 mOsm/kg (285-295); Potassium 3.4 mmol/L (3.5-5.1); Sodium 130 mmol/L (136-145); Total Bilirubin 0.2 mg/dL (0.15-1.2)
[2020-09-09 20:14] LABS: Erythrocyte Sedimentation Rate > 120 mm/hr (0-10)
== END 2020-09-09 16:20 | disposition home or self-care (01) ==
PROVIDERS: PCP Physician Assistant Medical; Visit Provider Podiatrist Foot & Ankle Surgery
DX: E11.9 Type 2 diabetes mellitus without complications (principal)
CPT/HCPCS: 80053; 85025; 85651

== ENCOUNTER → 2020-09-14 14:12 | Outpatient (BNVA) | payer MEDICARE, OTHER, SELFPAY | PROVIDERS: PCP Physician Assistant Medical; Visit Provider Podiatrist Foot & Ankle Surgery | DX: L97.514 Non-pressure chronic ulcer of other part of right foot with necrosis of bone (principal); E11.621 Type 2 diabetes mellitus with foot ulcer; L97.513 Non-pressure chronic ulcer of other part of right foot with necrosis of muscle; M86.9 Osteomyelitis, unspecified; Z48.89 Encounter for other specified surgical aftercare | CPT/HCPCS: 73630 ==

== ENCOUNTER 2020-09-14 15:09 | Emergency (ER) | payer MEDICARE, OTHER, SELFPAY ==
[2020-09-14 15:17] VITALS: BP 125/72; PULSE 107; RESP 20; TEMP 36.5; O2SAT 97; BMI 40.0
--- NOTE | 2020-09-14 16:44 | XR_ITS ---
WS: [id number] Portable AP upright chest, 09/14/2020 Clinical Data: syncope Comparison: Portable chest, 08/24/2020. Findings: No nodules, masses or effusions are seen. The heart is enlarged. The pulmonary vascularity is not increased. No pneumonia or pneumothorax is seen. The right PICC line ends at the junction of t he right subclavian vein and right internal jugular vein. XR/XR chest 1V portable [id number] Impression: Cardiomegaly.
--- NOTE | 2020-09-14 17:17 | ECG_ITS ---
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: : 1955 Requested By: Kiara Guerrier Order Number: [id number] Bruce MD: REINA CARDOZA Measurements Intervals [place] Rate: 106 P: AK: QRS: 12 QRSD: 114 T: 5 QT: 370 QTc: 493 Interpretive Statements ATRIAL FIBRILLATION WITH RAPID VENTRICULAR RESPONSE MODERATE INTRAVENTRICULAR CONDUCTION DELAY [110+ ms QRS DURATION] MINIMAL ST DEPRESSION [0.025+ mV ST DEPRESSION] ABNORMAL RHYTHM ECG Compared to ECG 08/12/2020 04:16:49 Intraventricular conduction delay now present ST (T wave) deviation now present T-wave abnormality no longer present Electronically Signed On 09-14-2020 19:57:13 DOCUMENT CONTROL COORDINATOR by REINA CARDOZA [id number] f
[2020-09-14 18:33] LABS: Basophils % 0.3 %; Eosinophils # 0.6 10^3/uL (0.0-0.8); Eosinophils % 4.3 %; Hematocrit 25.2 % (42.0-52.0); Hemoglobin 7.8 g/dL (11.7-16.6); Lymphocytes % 7.3 %; Mean Corpuscular Hemoglobin 28.6 pg (28.0-34.0); Mean Corpuscular Volume 92.3 fL (80-94); Mean Platelet Volume 10.3 fL (7.4-10.4); Monocytes # 1.3 10^3/uL (0.2-0.9); Monocytes % 10.1 %; Neutrophils % 77.2 %; Nucleated Red Blood Cells % 0 %; Platelet Count 294 10^3/cmm (130-400); Red Blood Count 2.73 10^6/uL (4.1-5.3); Red Cell Distribution Width 15.1 % (12.1-15.1)
[2020-09-14 19:14] LABS: Alanine Aminotransferase 41 U/L (0-41); Albumin Level 2.5 g/dL (3.5-5.2); Alkaline Phosphatase 118 IU/L (40-130); Anion Gap 17.3 (5-19); Aspartate Amino Transferase 33 U/L (0-40); Blood Urea Nitrogen 70 mg/dL (8-23); Calcium 9.9 mg/dL (8.5-10.5); Carbon Dioxide 25 mmol/L (22-29); Chloride 88 mmol/L (98-107); Globulin 4.4 g/dL (1.3-4.6); Glomerular Filtration Rate 8.8 mL/min (90-130); Glucose 199 mg/dL (65-115); Lipase 66 U/L (13-60); Osmolality Calculated 290 mOsm/kg (285-295); Potassium 3.3 mmol/L (3.5-5.1); Sodium 127 mmol/L (136-145); Total Bilirubin 0.2 mg/dL (0.15-1.2); Total Protein 6.9 g/dL (6.6-8.7)
== END 2020-09-14 20:03 | disposition left against medical advice (07) ==
PROVIDERS: Nurse Practitioner Family; Emergency Provider Family Medicine; PCP Physician Assistant Medical
DX: Z53.21 Procedure and treatment not carried out due to patient leaving prior to being seen by health care provider (principal)
CPT/HCPCS: 71045; 80053; 83690; 85025; 93005; 99281

== ENCOUNTER 2020-09-17 18:21 | Outpatient (CLI) | payer MEDICARE, SELFPAY ==
[2020-09-17 19:13] LABS: Basophils # 0.1 10^3/uL (0.0-0.1); Basophils % 0.5 %; Eosinophils # 0.2 10^3/uL (0.0-0.8); Eosinophils % 1.3 %; Hematocrit 24.2 % (42.0-52.0); Hemoglobin 7.3 g/dL (11.7-16.6); Lymphocytes # 1.4 10^3/uL (0.8-4.8); Lymphocytes % 11.1 %; Mean Corpuscular HGB Conc 30.2 g/dL (30.0-36.0); Mean Corpuscular Hemoglobin 28.3 pg (28.0-34.0); Mean Corpuscular Volume 93.8 fL (80-94); Mean Platelet Volume 10.3 fL (7.4-10.4); Monocytes # 1.2 10^3/uL (0.2-0.9); Monocytes % 9.2 %; Neutrophils # 9.89 10^3/uL (1.8-7.7); Neutrophils % 76.2 %; Nucleated Red Blood Cells % 0 %; Platelet Count 347 10^3/cmm (130-400); Red Blood Count 2.58 10^6/uL (4.1-5.3); Red Cell Distribution Width 14.9 % (12.1-15.1)
[2020-09-17 19:42] LABS: Alanine Aminotransferase 51 U/L (0-41); Albumin Level 2.7 g/dL (3.5-5.2); Alkaline Phosphatase 125 IU/L (40-130); Anion Gap 21.5 (5-19); Aspartate Amino Transferase 33 U/L (0-40); Calcium 9.5 mg/dL (8.5-10.5); Carbon Dioxide 24 mmol/L (22-29); Chloride 88 mmol/L (98-107); Globulin 3.8 g/dL (1.3-4.6); Glomerular Filtration Rate 8.5 mL/min (90-130); Glucose 163 mg/dL (65-115); Osmolality Calculated 299 mOsm/kg (285-295); Potassium 3.5 mmol/L (3.5-5.1); Sodium 130 mmol/L (136-145); Total Bilirubin 0.2 mg/dL (0.15-1.2); Total Protein 6.5 g/dL (6.6-8.7)
[2020-09-17 19:48] LABS: Blood Urea Nitrogen 84 mg/dL (8-23)
[2020-09-17 21:21] LABS: Erythrocyte Sedimentation Rate > 120 mm/hr (0-10)
== END 2020-09-17 18:22 | disposition home or self-care (01) ==
LOC: LAB 18:24
PROVIDERS: PCP Physician Assistant Medical; Visit Provider Podiatrist Foot & Ankle Surgery
DX: E11.9 Type 2 diabetes mellitus without complications (principal)
CPT/HCPCS: 80053; 85025; 85651

== ENCOUNTER 2020-09-24 15:52 | Outpatient (CLI) | payer MEDICARE, SELFPAY ==
[2020-09-24 16:11] LABS: Basophils % 0.2 %; Eosinophils # 0.2 10^3/uL (0.0-0.8); Eosinophils % 1.5 %; Hematocrit 26.9 % (42.0-52.0); Hemoglobin 8.3 g/dL (11.7-16.6); Lymphocytes # 1.1 10^3/uL (0.8-4.8); Lymphocytes % 8.3 %; Mean Corpuscular HGB Conc 30.9 g/dL (30.0-36.0); Mean Corpuscular Hemoglobin 28.4 pg (28.0-34.0); Mean Corpuscular Volume 92.1 fL (80-94); Mean Platelet Volume 10.3 fL (7.4-10.4); Monocytes # 1.3 10^3/uL (0.2-0.9); Monocytes % 10.3 %; Neutrophils # 10.04 10^3/uL (1.8-7.7); Neutrophils % 77.5 %; Nucleated Red Blood Cells % 0 %; Platelet Count 186 10^3/cmm (130-400); Red Blood Count 2.92 10^6/uL (4.1-5.3); Red Cell Distribution Width 15.9 % (12.1-15.1)
[2020-09-24 17:34] LABS: Erythrocyte Sedimentation Rate 115 mm/hr (0-10)
== END 2020-09-24 15:53 | disposition home or self-care (01) ==
PROVIDERS: PCP Physician Assistant Medical; Visit Provider Podiatrist Foot & Ankle Surgery
DX: E11.9 Type 2 diabetes mellitus without complications (principal)
CPT/HCPCS: 85025; 85651

== ENCOUNTER 2020-09-27 17:57 | Inpatient (IN) | payer MEDICARE, SELFPAY ==
[2020-09-27] VITALS (38 sets, daily range): BP systolic 93–226; BP diastolic 66–146; PULSE 110–137; RESP 12–28; TEMP 36.4; O2SAT 91–100; BMI 41.3
--- NOTE | 2020-09-27 18:01 | USR_ITS ---
PROCEDURE INFORMATION: Exam: US Duplex Right Upper Extremity Veins, Limited Exam date and time: 09/27/2020 6:02 PM Age: 65 years old Clinical indication: Edema, localized; Upper extremity, right; Prior surgery; Surgery date: <1 month; Surgery type: PT has picc line inserted in RT. Basilic vein; Patient HX: Arm became swollen Edwin. Arm is very painful. ; Additional info: Dvt TECHNIQUE: Imaging protocol: Real-time Duplex ultrasound of the Right Upper Extremity with 2-D reeder scale, color Doppler flow and spectral waveform analysis with image documentation. Limited exam focused on the right upper extremity veins. COMPARISON: No relevant prior studies available. FINDINGS: Right deep veins: Hypoechoic, nonocclusive thrombus in the internal jugular vein. Axillary, brachial, radial and ulnar veins are patent throughout without thrombus. Visualized subclavian vein patent. Right superficial veins: Visualized cephalic and basilic veins are patent without thrombus. Soft tissues: Mild soft tissue [place]. [place] [id number] IMPRESSION: Hypoechoic, nonocclusive thrombus in the internal jugular vein.
--- NOTE | 2020-09-27 18:13 | ECG_ITS ---
[facility] Test Date: 2020-09-27 Pat Name: Levi Bonilla Department: Room: Gender: Male Transcripter: : 1955 Requested By: Stacey Levy Order Number: [id number] Bruce MD: Radha Peterson M.D. Measurements Intervals [place] Rate: 124 P: ND: QRS: 46 QRSD: 94 T: -11 QT: 322 QTc: 463 Interpretive Statements ATRIAL FIBRILLATION WITH RAPID VENTRICULAR RESPONSE NONSPECIFIC ST & T-WAVE ABNORMALITY Compared to ECG 09/14/2020 15:32:39 T-wave abnormality now present Intraventricular conduction delay no longer present ST (T wave) deviation no longer present Electronically Signed On 09-28-2020 20:17:15 CHEESE FACTORY WORKER by Radha Peterson M.D. [id number]
--- NOTE | 2020-09-27 18:14 | ED_ITS ---
HPI - Extremity Injury (Upper) General: Chief Complaint: General Medical Stated Complaint: POSS BLOOD CLOT IN R ARM PER PCP Time Seen by Provider: 09/27/20 18:00 Source: patient Mode of arrival: ambulatory Limitations: no limitations History of Present Illness: HPI narrative: 65-year-old male who has a history of A. fib along with end-stage renal disease and is on peritoneal dialysis. He also has osteomyelitis to his foot and has been receiving IV antibiotics through a PICC line. He has had swelling in his right arm where the PICC line is placed is concerned he could have a blood clot. He states the PICC line is still functioning and he receives antibiotics daily and has had no issues with the actual PICC line. He denies any pain but that arm is swollen. Patient is in A. fib. He states he is been taking his meds. He states he had some slight palpitations and denies any chest pain or shortness of breath. Review of Systems Const: Denies: fever(s), chills, body aches or change in appetite Eyes: Denies: blurry vision or eye discomfort ENMT: Denies: throat pain or dental pain Card: Reports: palpitations Resp: Denies: dyspnea GI: Denies: abdominal pain, nausea, vomiting or diarrhea : Denies: dysuria Musc: Reports: extremity swelling Skin/Breast: Denies: rash Neuro: Denies: headache(s) Psych: Denies: depression Edmundo/Lymph: Denies: easy bruising All/Imm: Denies: urticaria PFSH ED PFSH: Medical History Anemia Atrial fibrillation with RVR Atrial fibrillation, chronic Diabetes Diabetic neuropathy Elevated troponin End stage renal disease -on peritoneal dialysis Gout Hypertension Hypothyroidism Morbid obesity Surgical History Presence of Watchman left atrial appendage closure device Physical Exam Const: COMMON NORMALS: no acute distress, patient oriented x3 and healthy appearing HENMT: COMMON NORMALS: normocephalic and atraumatic HEAD & SCALP: normocephalic and atraumatic Eye: COMMON NORMALS: Equal, round and reactive pupils present and EOMs intact bilaterally PUPIL: Yes Equal, round and reactive pupils present Neck/C-Spine: COMMON NORMALS: full ROM and supple Chest: COMMONS NORMALS: normal inspection of the chest and normal palpation of entire chest wall Resp: COMMON NORMALS: normal respiratory effort, No retractions, No use of accessory muscles and clear to auscultation bilaterally AUSCULTATION: clear to auscultation bilaterally Cardio: COMMON NORMALS: No murmurs present (Cardio) RATE: tachycardic RHYTHM: abnormal rhythm irregularly irregular GI: COMMON NORMALS: Normal to inspection, nondistended, normoactive bowel sounds present, Soft to palpation, non-tender and no masses PALPATION: Yes Soft to palpation Extremity: COMMON NORMALS: full ROM NARRATIVE EXTREMITY EXAM: Swelling to left arm noted distal pulses intact Neuro: COMMON NORMALS: patient oriented x3, moves all extremities and no focal motor deficits Psych: COMMON NORMALS: mental status grossly normal, Normal thought process present and cooperative THOUGHT PROCESS: Normal thought process present Skin: COMMON NORMALS: no rashes or lesions noted and no wounds GENERAL SKIN EXAM: no rashes or lesions noted Course Vital Signs: Vital signs: Vital Signs Temperature 97.5 F L 09/27/20 18:06 Pulse Rate 112 H 09/27/20 21:06 Respiratory Rate 18 09/27/20 21:06 Blood Pressure 182/90 09/27/20 21:06 Pulse Oximetry 99 09/27/20 21:06 MDM - Extremity Injury (Upper) MDM Narrative: Medical decision making narrative: He presents here with swelling in his right arm and does have a DVT in his internal jugular that appears to be nonocclusive. Patient is also in A. fib with RVR and had a start him on a Cardizem drip. He has chronic anemia and end-stage renal disease. Patient given 1 dose heparin here. His heart rates improving on the Cardizem drip. I spoke to the hospitalist and will admit to the cardiac stepdown unit. Lab Data: Labs: Lab Results 09/27/20 09/27/20 Range/Units 20:21 20:21 WBC 14.0 H (4.0-10.0) 10^3/ uL RBC 2.40 L (4.1-5.3) 10^6/u L Hgb 6.9 L (11.7-16.6) g/dL Hct 22.3 L (42.0-52.0) % MCV 92.9 (80-94) fL MCH 28.8 (28.0-34.0) pg MCHC 30.9 (30.0-36.0) g/dL RDW 15.8 H (12.1-15.1) % Plt Count 232 (130-400) 10^3/c mm MPV 10.0 (7.4-10.4) fL Neut % (Auto) 79.8 % Lymph % (Auto) 6.5 % Edmunds % (Auto) 9.0 % Eos % (Auto) 2.8 % Baso % (Auto) 0.1 % Neut # (Auto) 11.20 H (1.8-7.7) 10^3/u L Lymph # (Auto) 0.9 (0.8-4.8) 10^3/u L Edmunds # (Auto) 1.3 H (0.2-0.9) 10^3/u L Eos # (Auto) 0.4 (0.0-0.8) 10^3/u L Baso # (Auto) 0.0 (0.0-0.1) 10^3/u L Nucleated RBC % (a uto) 0 % Nucleated RBCs # 0.0 /100WBC Sodium 129 L (136-145) mmol/L Potassium 3.6 (3.5-5.1) mmol/L Chloride 93 L (98-107) mmol/L Carbon Dioxide 22 (22-29) mmol/L Anion Gap 17.6 (5-19) BUN 77 H (8-23) mg/dL Creatinine 6.2 H* (0.7-1.2) mg/dL GFR Calculation 9.1 L (90-130) mL/min Glucose 203 H (65-115) mg/dL Calculated Osmolal ity 297 H (285-295) mOsm/k g Calcium 9.1 (8.5-10.5) mg/dL Total Bilirubin 0.2 (0.15-1.2) mg/dL AST 22 (0-40) U/L ALT 23 (0-41) U/L Alkaline Phosphata se 124 (40-130) IU/L Total Protein 5.8 L (6.6-8.7) g/dL Albumin 2.2 L (3.5-5.2) g/dL Globulin 3.6 (1.3-4.6) g/dL EKG Data^: EKG 1: Attestation: I personally reviewed and interpreted this EKG as follows: EKG interpretation date: 09/27/20 EKG interpretation time: 18:27 Interpretation: afib rvr hr [address] or t wave abnormalities qrs 93 qtc 320 Discharge Plan Discharge Patient Disposition: Admitted As Inpatient Clinical Impression: ESRD (end stage renal disease) DVT (deep venous thrombosis) Qualifiers: DVT location: non-extremity vein Chronicity: acute Qualified Code(s): I82.90 - Acute embolism and thrombosis of unspecified vein Atrial fibrillation Qualifiers: Atrial fibrillation type: unspecified Qualified Code(s): I48.91 - Unspecified atrial fibrillation Condition: Stable Coding Level of Care Code ED Parking Ramp Attendant for Chg Fwd Exam Comprehensive
--- NOTE | 2020-09-27 19:19 | PC.NURSE ---
ULTRASOUND IN ROOM
[2020-09-27 20:33] LABS: Basophils % 0.1 %; Eosinophils # 0.4 10^3/uL (0.0-0.8); Eosinophils % 2.8 %; Hematocrit 22.3 % (42.0-52.0); Hemoglobin 6.9 g/dL (11.7-16.6); Lymphocytes # 0.9 10^3/uL (0.8-4.8); Lymphocytes % 6.5 %; Mean Corpuscular HGB Conc 30.9 g/dL (30.0-36.0); Mean Corpuscular Hemoglobin 28.8 pg (28.0-34.0); Mean Corpuscular Volume 92.9 fL (80-94); Monocytes # 1.3 10^3/uL (0.2-0.9); Neutrophils % 79.8 %; Nucleated Red Blood Cells % 0 %; Platelet Count 232 10^3/cmm (130-400); Red Cell Distribution Width 15.8 % (12.1-15.1)
[2020-09-27 20:52] LABS: Alanine Aminotransferase 23 U/L (0-41); Albumin Level 2.2 g/dL (3.5-5.2); Alkaline Phosphatase 124 IU/L (40-130); Anion Gap 17.6 (5-19); Aspartate Amino Transferase 22 U/L (0-40); Blood Urea Nitrogen 77 mg/dL (8-23); Calcium 9.1 mg/dL (8.5-10.5); Carbon Dioxide 22 mmol/L (22-29); Chloride 93 mmol/L (98-107); Globulin 3.6 g/dL (1.3-4.6); Glomerular Filtration Rate 9.1 mL/min (90-130); Glucose 203 mg/dL (65-115); Osmolality Calculated 297 mOsm/kg (285-295); Potassium 3.6 mmol/L (3.5-5.1); Sodium 129 mmol/L (136-145); Total Bilirubin 0.2 mg/dL (0.15-1.2); Total Protein 5.8 g/dL (6.6-8.7)
--- NOTE | 2020-09-27 21:09 | P.HP_ITS ---
Providers/Chief Complaint Primary Care Provider: Anmol Santiago Chief Complaint: POSS BLOOD CLOT IN R ARM PER PCP History of Present Illness Levi Bonilla is a 65 year old male who was recently discharged from the hospital after PICC line placement on August 16 for treatment of MSSA osteomyelitis, presented with right arm swelling. Patient went to his primary care physician clinic who advised him to go to the ER for evaluation of right arm swelling. Patient is stating that his symptoms started on when he experienced inability to move arm with swelling, he did not pursue immediate medical attention because he was scheduled to see multiple physicians in the next few days such as wound care/podiatry, infectious disease specialist and PCP. No recent diarrhea, fever, nausea, or vomiting, however he is endorsing right-sided subcostal pain which gets worse on movement. Diagnostics in the ER revealed A. fib RVR Cardizem 20 mg IV bolus was given which did not improve his heart rate hence Cardizem drip was initiated, he was given bolus of heparin as well after positive finding of right IJ clot, decision was made to admit to CSU start heparin and Cardizem gtt. patient was hemodynamically stable at the time my evaluation. He has chronic anemia, denying recent acute blood loss anemia, telemetry continuous improvement director has been consulted. He has chronic hyponatremia as well baseline creatinine sodium seems to be around 130s. No active neurological signs or symptoms. Review of Systems Const: Reports: body aches and fatigue; Denies: fever(s) or chills Eyes: Denies: change in vision ENMT: Denies: throat pain Card: Reports: palpitations and irregular heart rhythm; Denies: chest pain Resp: Reports: pain on inspiration; Denies: dyspnea GI: Denies: abdominal pain or diarrhea : Denies: urinary dribbling or change in urine stream Musc: Reports: extremity pain, extremity swelling, joint pain, joint stiffness and muscle cramps Skin/Breast: Reports: lesions Neuro: Denies: headache(s) Psych: Reports: anxiety and depression Endo: Denies: polyuria Edmundo/Lymph: Denies: easy bruising All/Imm: Denies: urticaria Medications/Allergies Home Medications Medication Instructions Recorded Confirmed Last Taken Type allopurinol 300 mg PO QAM 08/11/20 09/27/20 09/27/20 History amlodipine 10 mg PO BEDTIME 08/11/20 09/27/20 09/26/20 History atorvastatin 20 mg PO QAM 08/11/20 09/27/20 09/27/20 History citalopram 20 mg PO BEDTIME 08/11/20 09/27/20 09/26/20 History clonidine HCl 0.1 mg PO BID 08/11/20 09/27/20 09/27/20 History cyclobenzaprine 5 mg PO Q8H PRN 08/11/20 09/27/20 09/26/20 History ergocalciferol (vitamin D2) 1,250 mcg PO Q7D 08/11/20 09/27/20 08/11/20 History levothyroxine 150 mcg PO QAM 08/11/20 09/27/20 09/27/20 History losartan 100 mg PO BEDTIME 08/11/20 09/27/20 09/26/20 History megestrol 40 mg PO DAILY 08/11/20 09/27/20 08/11/20 History mupirocin calcium See Rx Instructions .ROUTE .COMPLEX 08/11/20 09/27/20 Unknown History pantoprazole 40 mg PO QAM 08/11/20 09/27/20 09/27/20 History paricalcitol [Zemplar] 1 mcg PO QAM 08/11/20 09/27/20 09/27/20 History peritoneal dialysis solution See Rx Instructions .ROUTE .COMPLEX 08/11/20 09/27/20 08/10/20 History torsemide 100 mg PO QAM 08/11/20 09/27/20 08/11/20 History tramadol 50 - 100 mg PO Q8H PRN 08/11/20 09/27/20 09/26/20 History ceftriaxone 1 g IV DAILY #42 ea 08/18/20 09/27/20 09/27/20 Rx glipizide 7.5 mg PO DAILY 30 Days #45 tab 08/18/20 09/27/20 09/27/20 Rx cadexomer iodine 0.9 % topical gel 40 g TOPICAL Q3D #40 g 09/07/20 09/27/20 09/27/20 Rx states uses everyday Post Operative darco shoe #1 ea 09/20/20 09/27/20 Unknown Rx Renal Factor Plus 1 tab PO QAM 09/27/20 09/27/2021 History acetaminophen [Tylenol Extra 1,000 mg PO PRN 09/27/20 09/27/20 09/26/20 History Strength] aspirin [Aspir-81] 81 mg PO QPM 09/27/20 09/27/20 09/26/20 History metoprolol tartrate 50 mg PO BID 09/27/20 09/27/20 09/27/20 08:00 History polysaccharide iron complex 150 mg PO BID 09/27/20 09/27/20 09/27/20 History [Ferrex 150] sodium chloride 0.9 % See Rx Instructions .ROUTE .COMPLEX 09/27/20 09/27/20 Unknown History Allergies Allergy/AdvReac Type Severity Reaction Status Date / Time No Known Allergies Allergy Verified 09/27/20 20:05 PFSH Acute PFSH: Medical History Anemia Atrial fibrillation with RVR Atrial fibrillation, chronic Diabetes Diabetic neuropathy Elevated troponin End stage renal disease -on peritoneal dialysis Gout Hypertension Hypothyroidism Morbid obesity Surgical History Presence of Watchman left atrial appendage closure device S/P PICC central line placement aug 16 2020 Family History Other Family history non-contributory Social History Alcohol intake: never Substance/Drug Use: never Housing: House Vitals/I&O/Wt Last Vital Signs Temp 97.5 F L 09/27/20 18:06 Pulse 112 H 09/27/20 21:06 Resp 18 09/27/20 21:06 BP 182/90 09/27/20 21:06 Pulse Ox 99 09/27/20 21:06 Weight last 48 hrs Weight 138.346 kg Physical Exam Narrative: EXAM NARRATIVE: Middle-age male who appears more than stated age He does not look dehydrated or fluid overloaded Laying comfortably in his bed saturating well on room air Limited right arm motion secondary to pain and swelling, PICC insertion site without any drainage or active signs of infiltration, Variable S1-S2 no active signs of heart failure Abdomen soft nontender distended, visceral obesity, peritoneal dialysis catheter without any active drainage or site sensitization Right foot was wrapped in sterile dressing which was not removed at the time of my evaluation, no active drainage noticed around the dressing Left foot no active gangrene ischemia or ulcer Patient is awake alert oriented x3 GCS 15 No neurological deficit EOMI, PERRLA Appropriate mood and affect No respiratory distress patient saturating well on room air Data : 09/27/20 20:21 09/27/20 20:21 A&P Assessment and plan (1) DVT (deep venous thrombosis): Status: Acute Qualifiers: Chronicity: acute DVT location: non-extremity vein Qualified Code(s): I82.90 - Acute embolism and thrombosis of unspecified vein (2) Atrial fibrillation: Status: Acute Qualifiers: Atrial fibrillation type: unspecified Qualified Code(s): I48.91 - Unspecified atrial fibrillation (3) ESRD (end stage renal disease): Status: Acute (4) Diabetic foot ulcer associated with type 2 diabetes mellitus: Status: Acute Qualifiers: Diabetic foot ulcer location: toe Laterality: right Non-pressure ulcer stage: with necrosis of muscle Qualified Code(s): E11.621 - Type 2 diabetes m ellitus with foot ulcer; L97.513 - Non-pressure chronic ulcer of other part of right foot with necrosis of muscle (5) Osteomyelitis: Status: Acute Qualifiers: Osteomyelitis type: unspecified type Osteomyelitis location: foot Laterality: right Qualified Code(s): M86.9 - Osteomyelitis, unspecified (6) Chronic disease anemia: Status: Acute Additional A&P Information PICC line associated DVT Right internal jugular DVT (PICC line was placed on August 16) rule out bacteremia, obtain blood cultures Start heparin, in my assessment this PICC line seems to be functional and patient still requires IV antibiotics for osteomyelitis, at least he would require heparinization for 3 to 5 days before considering any intervention related to PICC line, kindly reevaluate in the morning Atrial fibrillation with RVR Patient did not improve with Cardizem bolus in the ER currently on Cardizem drip with normal hemodynamic Titrate off Cardizem overnight and start metoprolol usual dose in the morning, currently Cardizem drip is running at 10 mg/h, current heart rate 130s to 140 Patient was off anticoagulant agents since placement of watchman device I do believe A. fib RVR is secondary to PICC line associated right internal jugular DVT, which would require heparinization, he has chronic anemia, I would watch his hemoglobin closely overnight, hemodynamically he is stable, no recent bleeding, End-stage renal disease, peritoneal dialysis dependent Renal consult placed, Dr. Urias notified Anemia of chronic disease: No active evidence of blood loss, continue iron supplementation, if his hemoglobin keeps trickling down would stop heparin, hold off on blood transfusion for now Full code Renal dialysis diet DVT prophylaxis not needed currently on heparin drip Attestations Medical Necessity Statement*: Anticipating stay in the hospital to cross more than 2 midnights currently patient is requiring Cardizem drip along heparin gtt Will require closer monitoring in CCU Time Spent in Patient Care: (>than 50% of time spent in counselling and/or direct pt care on unit) . 50mins Coding Level of Care Code Acute Digital Advertising Analyst for Breanna Aguero Diagnoses DVT (deep venous thrombosis) I82.90 Chronicity: acute DVT location: non-extremity vein Atrial fibrillation I48.91 Atrial fibrillation type: unspecified ESRD (end stage renal disease) N18.6 Diabetic foot ulcer associated with type 2 diabetes mellitus E11.621; L97.513 Diabetic foot ulcer location: toe Laterality: right Non-pressure ulcer stage: with necrosis of muscle Osteomyelitis M86.9 Osteomyelitis type: unspecified type Osteomyelitis location: foot Laterality: right Chronic disease anemia D63.8
[2020-09-27] MEDS: heparin 5,000 unit/mL INJ 1 mL 4000 UNIT IVP (21:11)
[2020-09-27] MEDS: morphine 4 mg/mL SDV 1 mL IVP (23:43)
[2020-09-27] MEDS: ergocalciferol (vitamin D2) 50,000 Unit Capsule 50000 UNIT PO (23:44)
[2020-09-28] VITALS (91 sets, daily range): BP systolic 112–183; BP diastolic 62–123; PULSE 67–158; RESP 4–25; TEMP 36.6–36.9; O2SAT 92–100; BMI 40.4
[2020-09-28 01:10] LABS: Platelet Count 230 10^3/cmm (130-400)
[2020-09-28] MEDS: heparin drip 25,000 UNIT/500 ML PREMIX 36 UNIT IV (01:19)
--- NOTE | 2020-09-28 04:15 | PC.NURSE ---
Patient arrived from ED at 0335 to ICU bed 5. Patient is alert and orientated. Lung sounds are clear, BS active, continent uses urinal to void, diabetic ulcer to right great toe, peritoneal diaylsis port in abdomen, hemodiaylsis fistula in left AC, PICC in right upper arm. Heparin and cardizem gtt running per protocols.
--- NOTE | 2020-09-28 04:50 | PC.NURSE ---
New Order: New order for Morphine IVP 2mg every 6 hours PRN for pain received telephone from Dr. Nguyen.
[2020-09-28] MEDS: morphine 4 mg/mL SDV 1 mL 2 MG IVP ×3 (05:21→19:56)
[2020-09-28 05:25] LABS: Basophils # 0.1 10^3/uL (0.0-0.1); Basophils % 0.4 %; Eosinophils # 0.3 10^3/uL (0.0-0.8); Eosinophils % 2.7 %; Hematocrit 23.7 % (42.0-52.0); Hemoglobin 7.3 g/dL (11.7-16.6); Lymphocytes % 8.7 %; Mean Corpuscular HGB Conc 30.8 g/dL (30.0-36.0); Mean Corpuscular Hemoglobin 28.6 pg (28.0-34.0); Mean Corpuscular Volume 92.9 fL (80-94); Mean Platelet Volume 9.6 fL (7.4-10.4); Monocytes # 1.3 10^3/uL (0.2-0.9); Neutrophils % 76.1 %; Nucleated Red Blood Cells % 0 %; Platelet Count 216 10^3/cmm (130-400); Red Blood Count 2.55 10^6/uL (4.1-5.3); Red Cell Distribution Width 15.7 % (12.1-15.1); White Blood Count 11.8 10^3/uL (4.0-10.0)
[2020-09-28] MEDS: levothyroxine 75 mcg Tablet 150 MCG PO (05:25)
[2020-09-28 05:57] LABS: Anion Gap 19.6 (5-19); Blood Urea Nitrogen 76 mg/dL (8-23); Carbon Dioxide 21 mmol/L (22-29); Chloride 93 mmol/L (98-107); Creatinine Clr Calc Pharmacy 16.4294; Glomerular Filtration Rate 8.9 mL/min (90-130); Glucose 190 mg/dL (65-115); Osmolality Calculated 298 mOsm/kg (285-295); Potassium 3.6 mmol/L (3.5-5.1); Sodium 130 mmol/L (136-145)
--- NOTE | 2020-09-28 08:00 | XRR_ITS ---
PROCEDURE INFORMATION: Exam: XR Chest, 1 View Exam date and time: 09/28/2020 12:40 AM Age: 65 years old Clinical indication: Device placement; Picc; Additional info: Picc placement TECHNIQUE: Imaging protocol: XR of the chest Views: 1 view. COMPARISON: CR XR chest 1V portable [id number] 09/14/2020 5:09 PM FINDINGS: Tubes, catheters and devices: A central vascular catheter tip projects at the right thoracic inlet overlying the right 1st rib at the subclavian level. Lungs: Unremarkable. No consolidation. Pleural space: Unremarkable. No pleural effusion. No pneumothorax. Heart/Mediastinum: Cardiomegaly. Likely hiatal hernia containing air at the left cardiophrenic angle. Bones/joints: Rotator cuff arthropathy of the left shoulder. XR/XR chest 1V portable [id number] IMPRESSION: 1. Cardiomegaly. 2. No acute cardiopulmonary process. The
[2020-09-28 08:27] LABS: Partial Thromboplastin Time 50.7 SECONDS (23.9-36.7)
[2020-09-28] MEDS: heparin 5,000 unit/mL INJ 1 mL IV ×2 (08:43→14:26)
--- NOTE | 2020-09-28 08:51 | PC.CHAP ---
Pastoral Care Encounter/Spiritual Assessment Type of Contact [] Declined space systems operations manager visit [] Patient/Family/Request visit [] Outpatient visit [] Follow-up visit [] Physician referral [] Code/Alert [] Routine visit [] Staff referral [] Actively dying [] Patient sleeping [] Family support [] [] Out of room [] Palliative care [] [] Receiving care in room [] Pre-surgical visit [] Trauma [] Long length of stay [x] ICU visit [] Other: Relational/Emotional Strength [] Patient feels connected with others/family/visitors/staff [] Distress [] Loneliness/isolation [] Abandonment Spirituality of Patient [] Person of Kaitlyn [] Attends Buddhism of their Kaitlyn [] Believes in Prayer [] Reads Bible or Buddhism materials [] There are Spiritual issues to be addressed Poultry Veterinarian Interventions [x] Prayer [] Active listening [] Non-anxious presence [] Spiritual/emotional support [] Crisis/trauma care [] Spiritual counseling [] Bereavement support [] Provided bereavement packet [] Provided Bible/devotional materials [] Provided toy/stuffed animal, coloring book to patient or family member [] Provided Communion [] Anointing/Sidney [] Salvation [x] Completed spiritual assessment [] Other: Impact on Illness or Injury [] Angry [] Fearful [] Anxious [] Often cries [] Exhaustion [] Unable to work [] Unable to attend gnosticist [] Unable to walk/stand [] Unable to read [] Unable to drive [] Unable to eat/drink [] Unable to sleep [] Unable to be with family [] Patient intubated [] Other: Summary Time spent with patient
[2020-09-28] MEDS: iron polysaccharide complex 150 mg Capsule PO ×2 (09:00→17:59)
--- NOTE | 2020-09-28 09:02 | PC.NURSE ---
IV line to right wrist discontinued per provider, Dr Barnes, due to swelling and pain in arm. IV intact and patient tolerated discontinuation well.
[2020-09-28] MEDS: cefTRIAXone 1,000 MG in sodium chloride 0.9% (plus) 50 ML 100 MG IV (10:50)
[2020-09-28] MEDS: metoprolol tartrate 50 mg Tablet PO ×2 (10:51→17:54)
[2020-09-28] MEDS: dilTIAZem 60 mg Tablet PO ×3 (10:51→21:59)
[2020-09-28] MEDS: cloNIDine 0.1 mg Tablet PO ×2 (10:52→17:54)
[2020-09-28] MEDS: allopurinol 300 mg Tablet PO (10:52)
[2020-09-28] MEDS: atorvastatin 40 mg Tablet 20 MG PO (10:52)
[2020-09-28] MEDS: pantoprazole DR 40 mg Tablet PO (10:52)
--- NOTE | 2020-09-28 11:24 | PC.NURSE ---
care assumed on this pt Pt has an order for peritoneal dialysis but has not been started.
[2020-09-28] MEDS: Dianeal low Ca w/2.5% dex 2,000 mL Bag 2000 ML INTRAPERIT ×2 (12:28→18:00)
--- NOTE | 2020-09-28 12:46 | P.PN_ITS ---
Subjective Subjective: Interval history: Mr Bonilla is well-known to us. He presents with right upper extremity swelling, tenderness, erythema, ultrasound scan demonstrating DVT. This is around the PICC line that he has, for which he is receiving antibiotics. He is on antibiotics for MSSA osteomyelitis. From a renal perspective, he is on peritoneal dialysis, on the cycler at home. In-house we have been managing him with 2.5%, 2 L, every 6 hours. The in and outflow of the PD fluid is unremarkable, comfortable, clear and painless. Minimal extremity edema, breathing comfortably. No uremic symptoms. Hemodynamics reviewed, remains stable. Vitals/I&O/Wt Last Vital Signs Temp 97.5 F L 09/27/20 18:06 Pulse 115 H 09/28/20 10:00 Resp 18 09/28/20 10:00 BP 183/123 09/28/20 10:52 Pulse Ox 94 09/28/20 10:00 09/27/20 09/28/20 09/28/20 22:59 06:59 14:59 Intake Total 174.5 / 174.5 680.25 / 680.25 Output Total 300 / 300 600 / 600 Balance -125.5 / -125.5 80.25 / 80.25 Weight last 48 hrs Weight 135.369 kg Weight 138.346 kg Physical Exam Narrative: EXAM NARRATIVE: Constitutional: Awake, comfortable HEENT: Wet mucosa, no jvp, non icteric Lungs: Bilaterally clear without discernible wheeze, rales in all lung zones CVS: S1 S2, no murmurs Abdo: Soft, BS ok Ext 4: RUE edematous, Minimal edema, peripheral perfusion with no cyanosis Neurological: Grossly non-focal Data : 09/28/20 05:17 09/28/20 05:17 Micro: Microbiology 09/27/20 00:33 Blood Culture - Preliminary Blood SPECIMEN COLLECTED 09/27/20 20:22 Blood Culture - Preliminary Blood SPECIMEN COLLECTED A&P Additional A&P Information 1. ESRD on PD. CAPD in-house, 2 L, 2.5% every 6 hours. We will adjust PD prescription accordingly during his hospitalization, however, he did well this last admission. Dose medications for GFR less than 15 on PD. 2. Right upper extremity DVT, adjacent to PICC. Management per medical team, currently on heparin infusion. 3. MSSA osteomyelitis, currently on IV Rocephin, to continue therapy during hospitalization. 4. Hemodynamics. Blood pressure is elevated. Continue home medications including metoprolol, losartan. Will uptitrate if his blood pressure does not come down. 5. Anemia. Will check iron levels and give him a dose of Epogen when his blood pressure comes down. 6. Hyperphosphatemia. I will prescribe PhosLo for him during his hospital stay. Pavel Urias MD Nephrology [phone] Patient seen and examined via telemedicine, with the assistance of the bedside RN > 25 min spent in evaluation and mgmt of patient Attestations Medical Necessity Statement*: eval for ESRD mgmt Coding Level of Care Code Acute Concrete Mixing Truck Driver for Chg More
[2020-09-28 13:39] LABS: Iron 20 ug/dL (59-158); Percent Saturation 17.5 % (20-50); Total Iron Binding Capacity 114 mcg/dl; Unsaturated Iron Binding 94 ug/dL (112-347)
[2020-09-28 13:58] LABS: Partial Thromboplastin Time 42.5 SECONDS (23.9-36.7)
[2020-09-28] MEDS: epoetin alfa 10,000 unit/mL INJ 10000 UNIT SUBCUT (15:32)
[2020-09-28] MEDS: polyethylene glycol 3350 Pkt 17 gm PO (15:32)
[2020-09-28] MEDS: calcium acetate 667 mg Capsule 1334 MG PO (18:01)
--- NOTE | 2020-09-28 19:53 | P.PN_ITS ---
Subjective Subjective: Interval history: He has been bothered by discomfort and swelling in his right arm. Vitals/I&O/Wt Last Vital Signs Temp 97.5 F L 09/27/20 18:06 Pulse 107 H 09/28/20 19:00 Resp 15 09/28/20 19:00 BP 171/105 09/28/20 19:00 Pulse Ox 98 09/28/20 19:00 09/28/20 09/28/20 09/28/20 06:59 14:59 22:59 Intake Total 174.5 / 174.5 1194.65 / 1194.65 1300 / 2494.65 Output Total 300 / 300 600 / 600 280 / 880 Balance -125.5 / -125.5 594.65 / 594.65 1020 / 1614.65 Weight last 48 hrs Weight 135.369 kg Weight 138.346 kg Physical Exam Const: COMMON NORMALS: no acute distress and patient oriented x3 HENMT: COMMON NORMALS: oropharynx normal Neck/C-Spine: COMMON NORMALS: no JVD Resp: COMMON NORMALS: normal respiratory effort and clear to auscultation bilaterally AUSCULTATION: clear to auscultation bilaterally Cardio: COMMON NORMALS: no JVD, regular rhythm, S1 normal heart sound present, S2 normal heart sound present and No murmurs present (Cardio) RHYTHM: regular rhythm HEART SOUNDS: S1 normal heart sound present and S2 normal heart sound present GI: COMMON NORMALS: Normal to inspection, nondistended, normoactive bowel sounds present, Soft to palpation and non-tender PALPATION: Yes Soft to palpation Extremity: COMMON NORMALS: no joint enlargement and no pedal edema OTHER: Swelling of right upper extremity from shoulder to the distal extremity. No bruising or discoloration noted. Right lower extremity wound with dressing changed today by podiatry. Neuro: COMMON NORMALS: patient oriented x3 and moves all extremities Skin: COMMON NORMALS: no rashes or lesions noted GENERAL SKIN EXAM: no rashes or lesions noted Data : 09/28/20 05:17 09/28/20 05:17 Micro: Microbiology 09/27/20 20:22 Blood Culture - Preliminary Blood 09/27/20 00:33 Blood Culture - Preliminary Blood SPECIMEN COLLECTED A&P Assessment and plan (1) DVT (deep venous thrombosis): Right jugular VTE sent to right upper extremity PICC line. Associated lymphedema. Discomfort. Prescription with nursing staff this morning, left upper extremity has been reserved in terms of IV access to protect for future access for hemodialysis if needed. Due to this it appears he had an IV placed more distally in the forearm, and this morning was receiving 2 infusions with Cardizem in the PICC line, heparin drip more distally in the right upper extremity. As his heart rate had improved somewhat with Cardizem drip, to reduce the number of infusions with limited IV access we transitioned over to oral Cardizem at 60 mg 3 times daily in addition to the home dose metoprolol. As his catheter has been functioning, we initially discussed continuation of IV antibiotics via the catheter. His 6 weeks of antibiotics would be tomorrow, however, there has been concern regarding adequate healing, with preference to extend antibiotic course beyond 6 weeks as per recent visitation with podiatry office and previous consideration by infectious disease. We have had an extensive discussion today with both subspecialists, with weighing of risks and benefits, and the consensus is been that continuation of PICC line currently may lead to additional risks of complications including concern for complications like septic thrombophlebitis in the setting of immunocompromise, with diabetes, end-stage renal disease, paternal dialysis, and with presence of open wound, osteomyelitis. It is thought the more safe course of action would be to in fact remove the PICC line. With difficulty intravenous access is also discussed with his this evening, this presents a challenge with continuation of IV antibiotics. Given overall his wound has remained stable, with even some improvement, and given desire for continuation of antibiotics high bioavailability antibiotic by mouth may be potentially an equivalent option and the less risky option in this case. On consideration of various antibiotics Bactrim was thought to be the optimal choice in his situation, renally dosed, although with awareness of potential additional renal adverse effects, although in the setting of end-stage renal disease on dialysis already. His request that we touch base about this additionally with his bowl attendant Dr. Magallanes, and I will reach out to him as well. For now as noted on H&P we will continue anticoagulation for 3-5 days prior to removal of PICC line, with oral is being the tentative plan. His states that they understand that he is likely looking still at a prolonged therapy in efforts to attempt to salvage his foot, and they would like to stave off amputation as much as possible. She states at the same time they are realistic and understand that he is at very high risk of treatment failure given his numerous risk factors, and in addition given already having undergone 6 weeks of IV antibiotic therapy with so far somewhat limited results. Status: Acute Qualifiers: Chronicity: acute DVT location: non-extremity vein Qualified Code(s): I82.90 - Acute embolism and thrombosis of unspecified vein (2) Atrial fibrillation: Continue metoprolol. Cardizem transition to oral dosing. Adjust depending on heart rates. Status: Acute Qualifiers: Atrial fibrillation type: unspecified Qualified Code(s): I48.91 - Unspecified atrial fibrillation (3) ESRD (end stage renal disease): Continue peritoneal dialysis. I am notified that appears for some reason there was a missed dialysis session last night. Unclear reason why. I am told perhaps there was difficulties with supplies to set this up. PD has been resumed today. Status: Acute (4) Diabetic foot ulcer associated with type 2 diabetes mellitus: Nonhealing ulcer with infection of right foot, osteomyelitis. He has been continued on Rocephin infusions. As per discussion above given risk of additional complications with the catheter, VT, we are likely looking at transitioning to oral therapy. For now continue Rocephin as catheter needs to remain in place until at least 3-5 days of anticoagulation prior to removal. Patient's requested we reach out also to his bowl attendant to discuss regarding transition to this antibiotic with potential adverse effect on his kidneys. I am also notified that some of the supplies for wound care for his foot were not available the way this had been recommended and changed by podiatry. Podiatry consultation is very appreciated with regards to reevaluation of the wound, dressing changes, and wound care recommendations with alternative m easures if possible. Discussing with his she states that she will bring the recommended ointment for dressing changes tomorrow. Status: Acute Qualifiers: Diabetic foot ulcer location: toe Laterality: right Non-pressure ulcer stage: with necrosis of muscle Qualified Code(s): E11.621 - Type 2 diabetes mellitus with foot ulcer; L97.513 - Non-pressure chronic ulcer of other part of right foot with necrosis of muscle (5) Osteomyelitis: Status: Acute Qualifiers: Laterality: right Osteomyelitis location: foot Osteomyelitis type: unspecified type Qualified Code(s): M86.9 - Osteomyelitis, unspecified (6) Chronic disease anemia: Hemoglobin 7.3. Monitor blood counts. Hold off transfusion for now unless necessary to reduce additional immunosuppressive effects. Monitor while on anticoagulation. Status: Acute Attestations Medical Necessity Statement*: Continue admission for assessment management of VTE with venous catheter, need for additional antibiotic therapy with nonhealing diabetic wound, osteomyelitis of right foot with a number of additional comorbidities as above. Coding Level of Care Code Acute [employer] Tender for [facility] Fwd Exam Comprehensive Diagnoses DVT (deep venous thrombosis) I82.90 Chronicity: acute DVT location: non-extremity vein Atrial fibrillation I48.91 Atrial fibrillation type: unspecified ESRD (end stage renal disease) N18.6 Diabetic foot ulcer associated with type 2 diabetes mellitus E11.621; L97.513 Diabetic foot ulcer location: toe Laterality: right Non-pressure ulcer stage: with necrosis of muscle Osteomyelitis M86.9 Laterality: right Osteomyelitis location: foot Osteomyelitis type: unspecified type Chronic disease anemia D63.8
[2020-09-28 20:34] LABS: Partial Thromboplastin Time 56.7 SECONDS (23.9-36.7)
--- NOTE | 2020-09-28 21:00 | P.CONIM_ITS ---
Providers/Reason For Consult Consulting Physican/Specialty*: Frankie Woodall D.P.M. Reason for Consult*: Osteomyelitis right hallux Attending Physician: Matt Barnes Primary Care Provider: Anmol Santiago History of Present Illness History of Present Illness Levi Bonilla is a 65 year old diabetic male with end-stage renal disease admitted to the hospital service for DVT, venous duplex shows thrombus in the internal jugular vein. Patient has a PICC line being treated for osteomyelitis of the right hallux is 6 weeks into his treatment. Was seen by his primary care on Sunday and was referred to the emergency department for concern of DVT due to right arm swelling. PICC line placed 08/16/2020, has been receiving 2 g of ceftriaxone infused daily, has been set up with home health. His has been assisting with dressing changes and infusions on a daily basis. During his last hospitalization he was treated for acute osteomyelitis of the right hallux, I performed a incision and debridement, bone biopsy and insertion of cement spacer impregnated with tobramycin, patient was adamant to pursue limb salvage and wished to avoid any level amputation at all cost. Over the course of the past 6 weeks inflammatory markers have remained elevated, clinical presentation has remained stable without acute signs of infection. [facility] Review of Systems General: Reports: 10 or more systems reviewed and unremarkable except in HPI and below Const: Denies: fever(s) or chills Card: Denies: chest pain or palpitations Resp: Denies: productive cough GI: Denies: abdominal pain, nausea or vomiting : Denies: flank pain Musc: Reports: extremity swelling, joint pain, joint stiffness, limited range of motion and deformity Skin/Breast: Reports: sores, dry skin, nail changes and change in hair; Denies: erythema Neuro: Reports: numbness in extremities, sensory changes and difficulty walking Psych: Denies: suicidal ideation Edmundo/Lymph: Denies: easy bruising Meds/Allergies Home Medications and Allergies Home Medications Medication Instructions Recorded Confirmed Last Taken Type allopurinol 300 mg PO QAM 08/11/20 09/27/20 09/27/20 History amlodipine 10 mg PO BEDTIME 08/11/20 09/27/20 09/26/20 History atorvastatin 20 mg PO QAM 08/11/20 09/27/20 09/27/20 History citalopram 20 mg PO BEDTIME 08/11/20 09/27/20 09/26/20 History clonidine HCl 0.1 mg PO BID 08/11/20 09/27/20 09/27/20 History cyclobenzaprine 5 mg PO Q8H PRN 08/11/20 09/27/20 09/26/20 History ergocalciferol (vitamin D2) 1,250 mcg PO Q7D 08/11/20 09/27/20 08/11/20 History levothyroxine 150 mcg PO QAM 08/11/20 09/27/20 09/27/20 History losartan 100 mg PO BEDTIME 08/11/20 09/27/20 09/26/20 History megestrol 40 mg PO DAILY 08/11/20 09/27/20 08/11/20 History mupirocin calcium See Rx Instructions .ROUTE .COMPLEX 08/11/20 09/27/20 Unknown History pantoprazole 40 mg PO QAM 08/11/20 09/27/20 09/27/20 History paricalcitol [Zemplar] 1 mcg PO QAM 08/11/20 09/27/20 09/27/20 History peritoneal dialysis solution See Rx Instructions .ROUTE .COMPLEX 08/11/20 09/27/20 08/10/20 History torsemide 100 mg PO QAM 08/11/20 09/27/20 08/11/20 History tramadol 50 - 100 mg PO Q8H PRN 08/11/20 09/27/20 09/26/20 History ceftriaxone 1 g IV DAILY #42 ea 08/18/20 09/27/20 09/27/20 Rx glipizide 7.5 mg PO DAILY 30 Days #45 tab 08/18/20 09/27/20 09/27/20 Rx cadexomer iodine 0.9 % topical gel 40 g TOPICAL Q3D #40 g 09/07/20 09/27/20 09/27/20 Rx states uses everyday Post Operative darco shoe #1 ea 09/20/20 09/27/20 Unknown Rx Renal Factor Plus 1 tab PO QAM 09/27/20 09/27/20 09/27/20 History acetaminophen [Tylenol Extra 1,000 mg PO PRN 09/27/20 09/27/20 09/26/20 History Strength] aspirin [Aspir-81] 81 mg PO QPM 09/27/20 09/27/20 09/26/20 History metoprolol tartrate 50 mg PO BID 09/27/20 09/27/20 09/27/20 08:00 History polysaccharide iron complex 150 mg PO BID 09/27/20 09/27/20 09/27/20 History [Ferrex 150] sodium chloride 0.9 % See Rx Instructions .ROUTE .COMPLEX 09/27/20 09/27/20 Unknown History Allergies Allergy/AdvReac Type Severity Reaction Status Date / Time No Known Allergies Allergy Verified 09/27/20 20:05 Current Medications Current Medications Generic Name Dose Route Start Last Admin Trade Name Freq PRN Reason Stop Dose Admin Allopurinol 300 mg 09/28/20 09:00 09/28/20 10:52 Allopurinol 300 Mg Tablet PO 300 mg QAM MARIANELA Administration Atorvastatin Calcium 20 mg 09/28/20 09:00 09/28/20 10:52 Atorvastatin 40 Mg Tablet PO 20 mg QAM MARIANELA Administration Calcium Acetate 1,334 mg 09/28/20 18:00 09/28/20 18:01 Calcium Acetate 667 Mg Capsule PO 1,334 mg TIDWM MARIANELA Administration Clonidine HCl 0.1 mg 09/28/20 09:00 09/28/20 17:54 Clonidine 0.1 Mg Tablet PO 0.1 mg BID MARIANELA Administration Diltiazem HCl 60 mg 09/28/20 09:25 09/28/20 14:04 Diltiazem 60 Mg Tablet PO 60 mg TID MARIANELA Administration Ergocalciferol 50,000 unit 09/27/20 23:10 09/27/20 23:44 Ergocalciferol (Vitamin D2) 50,000 Unit Capsule PO 50,000 unit Q7D MARIANELA Administration Heparin Sodium (Beef Lung) 0 unit 09/27/20 23:10 09/28/20 14:26 Heparin 5,000 Unit/Ml Inj 1 Ml IV 5,000 unit PRN PRN Administration Heparin weight-base protocol Protocol Diltiazem HCl 125 mg/ Sodium 125 mls @ 10 mls/hr 09/27/20 20:45 09/28/20 09:14 Chloride IV 0 mg/hr .[id number] MARIANELA 0 mls/hr Infusion 10 MG/HR Heparin Sodium/Sodium Chloride 25,000 unit in 500 mls @ 0 mls/hr 09/27/20 23:10 09/28/20 14:13 Heparin Drip IV 15.9 unit/kg/hr .Q0M MARIANELA 44 mls/hr Titration Protocol Per Protocol Ceftriaxone Sodium 1,000 mg/ 50 mls @ 100 mls/hr 09/28/20 09:00 09/28/20 11:00 Sodium Chloride IV Infused DAILY MARIANELA Infusion Protocol Levothyroxine Sodium 150 mcg 09/28/20 06:00 09/28/20 05:25 Levothyroxine 75 Mcg Tablet PO 150 mcg QAM MARIANELA Administration Metoprolol Tartrate 50 mg 09/28/20 09:00 09/28/20 17:54 Metoprolol Tartrate 50 Mg Tablet PO 50 mg BID MARIANELA Administration Morphine Sulfate 2 mg 09/28/20 04:42 09/28/20 19:56 Morphine 4 Mg/Ml Sdv 1 Ml IVP 2 mg Q6H PRN Administration SEVERE PAIN Non-Formulary Medication 1 mcg 09/28/20 06:00 09/28/20 04:49 Paricalcitol [Zemplar] PO Not Given QAM [facility] Non-Formulary Medication 1 tab 09/28/20 06:00 09/28/20 04:50 Renal Factor Plus PO Not Given QAM MARIANELA Pantoprazole Sodium 40 mg 09/28/20 09:00 09/28/20 10:[address] 40 Mg Tablet PO 40 mg QAM MARIANELA Administration Peritoneal Dialysis Solution 2,000 ml 09/28/20 09:00 09/28/20 18:00 Dianeal Low Ca W/2.5% Dex 2,000 Ml Bag INTRAPERIT 2,000 ml QID MARIANELA Administration Polyethylene Glycol 17 gm 09/28/20 14:30 09/28/20 15:32 Polyethylene Glycol 3350 Pkt 17 Gm PO 17 gm BID MARIANELA Administration Polysaccharide Iron Complex 150 mg 09/28/20 09:00 09/28/20 17:59 Iron Polysaccharide Complex 150 Mg Capsule PO 150 mg BID MARIANELA Administration PFSH Acute PFSH: Medical History Anemia Atrial fibrillation with RVR Atrial fibrillation, chronic Diabetes Diabetic neuropathy Elevated troponin End stage renal disease -on peritoneal dialysis Gout Hypertension Hypothyroidism Morbid obesity Surgical History Presence of Watchman left atrial appendage closure device S/P PICC central line placement aug 16 2020 Family History Other Family history non-contributory Social History Alcohol intake: never Substance/Drug Use: never Housing: House Vitals/I&O/Wt Last Vital Signs Temp 97.5 F L 09/27/20 18:06 Pulse 107 H 09/28/20 19:00 Resp 18 09/28/20 19:56 BP 171/105 09/28/20 19:00 Pulse Ox 98 09/28/20 19:00 09/28/20 09/28/20 09/28/20 06:59 14:59 22:59 Intake Total 174.5 / 174.5 1194.65 / 1194.65 1300 / 2494.65 Output Total 300 / 300 600 / 600 280 / 880 Balance -125.5 / -125.5 594.65 / 594.65 1020 / 1614.65 Weight last 48 hrs Weight 298 lb 7 oz Weight 305 lb Physical Exam Narrative: EXAM NARRATIVE: Patient is alert and oriented ?3 and in no acute distress. The following is a focused lower extremity exam. VASCULAR: Dorsalis pedis and posterior tibial arteries palpable +1 bilaterally. Capillary refill time less than 5 seconds to the distal hallux bilaterally. Calf is supple and nontender proximally and distally. Diminished hair growth at legs and feet bilaterally, no hair growth appreciated to the level to dorsal toes. +1 pitting edema to the lower extremities. Palpable +1 popliteal artery bilaterally. NEUROLOGICAL: Protective sensation intact 0/10 sites, tested with Ira Sergei monofilament to bilateral feet. DERMATOLOGICAL: Wound to the medial aspect of the right first metatarsal phalangeal joint measures wound measurements 5.0 cm x 3.0 cm x 0.5 cm, no purulent drainage, no periwound erythema, no malodor. No proximal lymphangitic streaking. Wound is exposed to bone able to visualize the proximal and distal phalanx of the right hallux. MUSCULOSKELETAL: Muscle strength is 5 out of 5 in all 3 cardinal planes to bilateral foot and ankle. Pes planus foot type bilaterally. Ankle joint dorsiflexion is to neutral bilaterally. Reducible hammertoe deformities 2 through 5 bilaterally. Mild hallux abductovalgus deformity bilaterally, hallux is not track bound. Data Micro: Micro: Microbiology 09/27/20 20:22 Blood Culture - Pr eliminary Blood 09/27/20 00:33 Blood Culture - Pr eliminary Blood SPECIMEN [facility] JAY JAY A&P Assessment and plan (1) Diabetic peripheral neuropathy associated with type 2 diabetes mellitus: Status: Acute (2) ESRD (end stage renal disease): Status: Acute (3) Non-pressure chronic ulcer of other part of right foot with necrosis of bone: Status: Acute Mr. Bonilla is a 65-year-old male with osteomyelitis of the right hallux completing 6 weeks of IV antibiotics, 2 g of Rocephin infused daily via PICC line. Acute DVT of the right jugular, recommend infectious disease consultation as to discontinuing PICC line and potentially switching to oral antibiotics, appreciate infectious disease input in regards to this. Bone biopsy taken intraoperatively on 08 15 demonstrated no growth likely due to suppression as he was receiving empiric antibiotics prior to the procedure for several days. Wound bed culture taken 08 11 demonstrated strep G as well as staph aureus. Performed mechanical debridement of the right hallux wound, wound appears clinically stable at this time without cellulitis, erythema or purulent drainage. Dressing consisting of silver alginate, sterile 4 x 4 and skin tape will continue this once daily. Would like to utilize Iodosorb once this this is available will switch to Iodosorb once daily dressing change for the remainder of this hospitalization. Patient may be weightbearing with heel touch for transfers to the right lower extremity with cam boot for offloading. Will repeat right foot x-rays. And ISAIAH/TBI/PVR arterial studies. Patient has had a poor response and slow wound healing, status post debridement and parenteral antibiotics with local wound care he has had very slow formation of granulation tissue, I am recommending a referral to the wound care center after discharge from this hospitalization he may benefit from hyperbarics and advanced wound care modalities. 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
[2020-09-28] MEDS: citalopram 20 mg Tablet PO (21:59)
[2020-09-28] MEDS: losartan 50 mg Tablet 100 MG PO (21:59)
--- NOTE | 2020-09-28 23:09 | PC.NURSE ---
Transported patient to the CSU via wheelchair without incident. All belongings were transported with the patient. The patient had been placed on a heparin drip which is currently running at 44ml/hr which is 15.9units. There was no heparin sheet started. Per report the last ptt was therapeutic and no change was needed. Heparin sheet started as per policy.
--- NOTE | 2020-09-28 23:55 | PC.NURSE ---
The heparin sheet I referenced in my previous note that was not started has been found and has been brought to CSU and made part of the chart at this time.
[2020-09-29] VITALS (21 sets, daily range): BP systolic 118–175; BP diastolic 67–104; PULSE 75–98; RESP 13–19; TEMP 36.3–36.6; O2SAT 96–98
[2020-09-29] MEDS: Dianeal low Ca w/2.5% dex 2,000 mL Bag 2000 ML INTRAPERIT ×4 (00:35→22:34)
[2020-09-29 01:09] LABS: Glucose Point of Care 223 mg/dL (70-110)
--- NOTE | 2020-09-29 01:09 | PC.NURSE ---
Called Dr. Nguyen hospitalist forest economics professor regarding this patient's request for bi-pap order at night. Pt and pt's both have requested the bi-pap overnight.
--- NOTE | 2020-09-29 02:13 | PC.NURSE ---
Spoke with Dr. Nguyen hospitalist honing machine try out setter regarding this patient's sleep apnea. Received orders to place him on his home c-pap which is present and in the room with the patient.
--- NOTE | 2020-09-29 02:49 | PC.NURSE ---
Spoke with Dr. Nguyen hospitalist interior design consultant regarding this patient's home c-pap again and inquired about the patient having a Hypoechoic, nonocclusive thrombus in the internal jugular vein. I was just concerned that the c-pap may change the intra-thoracic pressure and possibly dislodge the thrombus. Per Dr. Patrick beatty to use home c-pap unit.
[2020-09-29 02:51] LABS: Basophils % 0.2 %; Eosinophils # 0.4 10^3/uL (0.0-0.8); Eosinophils % 2.7 %; Hematocrit 24.1 % (42.0-52.0); Hemoglobin 7.4 g/dL (11.7-16.6); Mean Corpuscular HGB Conc 30.7 g/dL (30.0-36.0); Mean Corpuscular Hemoglobin 28.9 pg (28.0-34.0); Mean Corpuscular Volume 94.1 fL (80-94); Mean Platelet Volume 10.3 fL (7.4-10.4); Monocytes # 1.2 10^3/uL (0.2-0.9); Neutrophils # 10.35 10^3/uL (1.8-7.7); Neutrophils % 79.3 %; Nucleated Red Blood Cells % 0 %; Platelet Count 253 10^3/cmm (130-400); Red Blood Count 2.56 10^6/uL (4.1-5.3); Red Cell Distribution Width 15.7 % (12.1-15.1); White Blood Count 13.1 10^3/uL (4.0-10.0)
[2020-09-29 03:03] LABS: Partial Thromboplastin Time 56.3 SECONDS (23.9-36.7)
[2020-09-29 03:08] LABS: Anion Gap 16.9 (5-19); Blood Urea Nitrogen 76 mg/dL (8-23); Calcium 8.9 mg/dL (8.5-10.5); Carbon Dioxide 23 mmol/L (22-29); Chloride 92 mmol/L (98-107); Glomerular Filtration Rate 9.1 mL/min (90-130); Glucose 248 mg/dL (65-115); Osmolality Calculated 297 mOsm/kg (285-295); Potassium 3.9 mmol/L (3.5-5.1); Sodium 128 mmol/L (136-145)
[2020-09-29] MEDS: heparin drip 25,000 UNIT/500 ML PREMIX 44 UNIT IV (03:37)
[2020-09-29] MEDS: pantoprazole DR 40 mg Tablet PO (06:41)
[2020-09-29] MEDS: levothyroxine 75 mcg Tablet 150 MCG PO (06:42)
[2020-09-29] MEDS: atorvastatin 40 mg Tablet 20 MG PO (06:42)
[2020-09-29] MEDS: allopurinol 300 mg Tablet PO (06:42)
--- NOTE | 2020-09-29 07:58 | XR_ITS ---
WS: [id number] Right foot, 3 views, 09/29/2020 Clinical Data: Osteomyelitis right hallux serial x-ray Comparison: Right foot, 09/14/2020. Findings: There is an unhealed fracture of the base of the right fifth metatarsal. The erosion of the base of t he right first proximal phalanx remains same. Severe degenerative change of the metatarsal tarsal art iculation is noted. There is an Achilles spur and a small plantar spur. There is calcification in the martinez of the small arteries consistent with diabetes. There is soft tissue swelling adjacent to the head of the right first metatarsal and right first prox imal phalanx. XR/XR foot RT min 3V* [id number] Impression: 1. No change from prior right foot x-ray. 2. Changes consistent with Charcot joint and osteomyelitis of the base of right first proximal phalanx.
--- NOTE | 2020-09-29 07:59 | USCV_ITS ---
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 Unable to detect right toe pressure Ankle pressure greater than 220 bilaterally PVR waveforms showing normal amplitude with loss of dicrotic notch CONCLUSIONS Noncompressible arteries bilaterally ABIs and TBIs could not be obtained Some features of mild peripheral artery disease bilaterally Dr Demi Gan MD [facility] (Electronically Signed) Final Date: 30 September 2020 16:59 S
[2020-09-29 09:06] LABS: Partial Thromboplastin Time 42.7 SECONDS (23.9-36.7)
[2020-09-29] MEDS: heparin 5,000 unit/mL INJ 1 mL IV (09:22)
[2020-09-29] MEDS: morphine 4 mg/mL SDV 1 mL 2 MG IVP (09:27)
[2020-09-29] MEDS: cloNIDine 0.1 mg Tablet PO ×2 (09:29→17:28)
[2020-09-29] MEDS: iron polysaccharide complex 150 mg Capsule PO ×2 (09:29→17:28)
[2020-09-29] MEDS: dilTIAZem 60 mg Tablet PO ×3 (09:29→21:19)
[2020-09-29] MEDS: metoprolol tartrate 50 mg Tablet PO ×2 (09:34→17:29)
[2020-09-29] MEDS: cefTRIAXone 1,000 MG in sodium chloride 0.9% (plus) 50 ML 100 MG IV (09:35)
[2020-09-29] MEDS: calcium acetate 667 mg Capsule 1334 MG PO ×2 (11:52→17:29)
--- NOTE | 2020-09-29 12:16 | P.PN_ITS ---
Subjective Subjective: Interval history: Levi is doing well today. No new issues. Some discomfort in his right arm which remained stable. Peritoneal dialysis is going well, with comfortable and and outflow, clear effluent. No extremity edema or other hypervolemic symptoms. No uremic symptoms. Vitals/I&O/Wt Last Vital Signs Temp 97.9 F 09/29/20 10:54 Pulse 82 09/29/20 10:54 Resp 16 09/29/20 10:54 BP 175/88 09/29/20 10:54 Pulse Ox 96 09/29/20 10:54 09/28/20 09/29/20 09/29/20 22:59 06:59 14:59 Intake Total 1335.6 / 2530.25 733.733 / 733.733 Output Total 280 / 880 300 / 1180 300 / 300 Balance 1055.6 / 1650.25 -300 / 1350.25 433.733 / 433.733 Weight last 48 hrs Weight 139.162 kg Weight 140.251 kg Weight 139.797 kg Weight 135.369 kg Weight 138.346 kg Physical Exam Narrative: EXAM NARRATIVE: Constitutional: Awake, comfortable HEENT: Wet mucosa, no jvp, non icteric Lungs: Bilaterally clear without discernible wheeze, rales in all lung zones CVS: S1 S2, no murmurs Abdo: Soft, BS ok Ext 4: RUE edematous, Minimal edema, peripheral perfusion with no cyanosis Neurological: Grossly non-focal Data : 09/29/20 02:35 09/29/20 02:35 Micro: Microbiology 09/27/20 20:22 Blood Culture - Preliminary Blood Gram Negative Rods 09/27/20 00:33 Blood Culture - Preliminary Blood NEGATIVE TO DATE A&P Additional A&P Information 1. ESRD on PD. CAPD in-house, 2 L, 2.5% every 6 hours. We will adjust PD prescription accordingly during his hospitalization, however, he did well this last admission. Dose medications for GFR less than 15 on PD. 2. Right upper extremity DVT, adjacent to PICC. Management per medical team, currently on heparin infusion. 3. MSSA osteomyelitis, currently on IV Rocephin, to continue therapy during hospitalization. 4. Hemodynamics. Blood pressure is elevated. Will add hydralazine 5. Anemia. Iron sat low, will load with Venofer and give EPO today 6. Hyperphosphatemia. I will prescribe PhosLo for him during his hospital stay. 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
[2020-09-29] MEDS: iron sucrose 200 MG in sodium chloride 0.9% (100 ml) 100 ML 220 MG IV (13:29)
[2020-09-29] MEDS: heparin drip 25,000 UNIT/500 ML PREMIX 49 UNIT IV (13:30)
--- NOTE | 2020-09-29 13:30 | PC.NURSE ---
Patient's at bedside. brought iodine gel used for dressing changes at home. Dr. Woodall contacted via telephone. Telephone order to place a nickel thickness of iodine gel on wound, secure with sterile gauze and tape. RBTO. Physician requests that dressing be changed again to go along with new orders.
[2020-09-29] MEDS: epoetin alfa 10,000 unit/mL INJ 10000 UNIT SUBCUT (14:06)
[2020-09-29] MEDS: hyDRALAzine 50 mg Tablet PO ×2 (14:24→21:22)
[2020-09-29] MEDS: HYDROcodone-acetaminophen 5-325 mg Tablet 1 TAB PO ×2 (15:48→21:10)
[2020-09-29 18:12] LABS: Partial Thromboplastin Time 65.9 SECONDS (23.9-36.7)
--- NOTE | 2020-09-29 19:21 | PM.PN ---
Subjective Subjective: Interval history: He has been having pain in his R arm. Swelling persists. He has been elevating it on pillows when he can. Vitals/I&O/Wt Last Vital Signs Temp 97.6 F 09/29/20 15:06 Pulse 76 09/29/20 15:06 Resp 16 09/29/20 15:06 BP 120/76 09/29/20 17:28 Pulse Ox 96 09/29/20 15:06 09/29/20 09/29/20 09/29/20 06:59 14:59 22:59 Intake Total 3095.450 / 3095.450 2360 / 5455.450 Output Total 300 / 1180 2100 / 2100 2250 / 4350 Balance -300 / 1350.25 995.450 / 995.450 110 / 1105.450 Weight last 48 hrs Weight 139.162 kg Weight 140.251 kg Weight 139.797 kg Weight 135.369 kg Physical Exam Const: COMMON NORMALS: no acute distress and patient oriented x3 HENMT: COMMON NORMALS: oropharynx normal Neck/C-Spine: COMMON NORMALS: no JVD Resp: COMMON NORMALS: normal respiratory effort and clear to auscultation bilaterally AUSCULTATION: clear to auscultation bilaterally Cardio: COMMON NORMALS: no JVD, regular rhythm, S1 normal heart sound present, S2 normal heart sound present and No murmurs present (Cardio) RHYTHM: regular rhythm HEART SOUNDS: S1 normal heart sound present and S2 normal heart sound present GI: COMMON NORMALS: Normal to inspection, nondistended, normoactive bowel sounds present, Soft to palpation and non-tender PALPATION: Yes Soft to palpation Extremity: COMMON NORMALS: no joint enlargement and no pedal edema OTHER: Persistent swelling RUE. Right hallux with fresh dressing over the wound, mild swelling with no surrounding erythema. No drainage. Neuro: COMMON NORMALS: patient oriented x3 and moves all extremities Skin: COMMON NORMALS: no rashes or lesions noted GENERAL SKIN EXAM: no rashes or lesions noted Data : 09/29/20 02:35 09/29/20 02:35 Micro: Microbiology 09/27/20 20:22 Blood Culture - Preliminary Blood Gram Negative Rods 09/27/20 00:33 Blood Culture - Preliminary Blood NEGATIVE TO DATE A&P Assessment and plan (1) DVT (deep venous thrombosis): He has some persistent pain in his right arm. He and his request for additional pain control. Cautiously we will add hydrocodone by mouth. At this time we will continue with anticoagulation in preparation to remove PICC line. Continue to elevate right upper extremity above heart level. Will reassess again his symptoms tomorrow. If continues to have significant symptoms, consideration may need to be given to local TPA which would have to be done at an outside facility, although he does have anemia, ESRD, and so bleeding may be a concern. Discussed also possibility of post phlebitis syndrome during our conversation with his today as well as strategies to deal with the symptoms going forward. Right jugular VTE sent to right upper extremity PICC line. Associated lymphedema. Discomfort. Status: Acute Qualifiers: Chronicity: acute DVT location: non-extremity vein Qualified Code(s): I82.90 - Acute embolism and thrombosis of unspecified vein (2) Atrial fibrillation: Continue metoprolol. Oral Cardizem. Continue cardiac monitoring. Status: Acute Qualifiers: Atrial fibrillation type: unspecified Qualified Code(s): I48.91 - Unspecified atrial fibrillation (3) ESRD (end stage renal disease): Continue peritoneal dialysis. I am notified that appears for some reason there was a missed dialysis session last night. Unclear reason why. I am told perhaps there was difficulties with supplies to set this up. PD has been resumed today. Left arm is being reserved for vascular access in case of need for hemodialysis. Status: Acute (4) Diabetic foot ulcer associated with type 2 diabetes mellitus: Nonhealing ulcer with infection of right foot, osteomyelitis. He has been continued on Rocephin infusions. As per discussion above given risk of additional complications with the catheter, VT, we are likely looking at transitioning to oral therapy. For now continue Rocephin as catheter needs to remain in place until at least 3-5 days of anticoagulation prior to removal. 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 Will reach out to infectious disease again to confirm if there are any alternatives to Bactrim per request, given also now we are seeing some gram-negative rods in blood. Repeat blood culture. Will need to follow ID and sensitivity. Continue wound dressing changes as per podiatry recommendation. Wound culture appears has not been it collected, reinforced collection request with next dressing change. Status: Acute Qualifiers: Diabetic foot ulcer location: toe Laterality: right Non-pressure ulcer stage: with necrosis of muscle Qualified Code(s): E11.621 - Type 2 diabetes mellitus with foot ulcer; L97.513 - Non-pressure chronic ulcer of other part of right foot with necrosis of muscle (5) Osteomyelitis: Status: Acute Qualifiers: Osteomyelitis type: unspecified type Osteomyelitis location: foot Laterality: right Qualified Code(s): M86.9 - Osteomyelitis, unspecified (6) Chronic disease anemia: Persistent anemia. Hemoglobin remained stable. Monitor blood counts. Hold off transfusion for now unless necessary to reduce additional immunosuppressive effects. Monitor while on anticoagulation. Status: Acute Additional A&P Information Positive blood culture: Appears to be growing gram-negative rods and culture from 09/27, 09/12 bottles. Will request for repeat blood culture. Continue Rocephin for now. Attestations Medical Necessity Statement*: Continue admission for assessment management of catheter associated VTE, anticoagulation, preparation for removal of PICC line, adjustment of antibiotic therapy, in the setting of possible gram-negative cyrus bacteremia, in the setting of nonhealing right foot diabetic wound, diabetes, ESRD. Coding Level of Care Code Acute Supervisor Cellars for [facility] Fwd Diagnoses DVT (deep venous thrombosis) I82.90 Chronicity: acute DVT location: non-extremity vein Atrial fibrillation I48.91 Atrial fibrillation type: unspecified ESRD (end stage renal disease) N18.6 Diabetic foot ulcer associated with type 2 diabetes mellitus E11.621; L97.513 Diabetic foot ulcer location: toe Laterality: right Non-pressure ulcer stage: with necrosis of muscle Osteomyelitis M86.9 Osteomyelitis type: unspecified type Osteomyelitis location: foot Laterality: right Chronic disease anemia D63.8
[2020-09-29] MEDS: losartan 50 mg Tablet 100 MG PO (21:20)
[2020-09-29] MEDS: citalopram 20 mg Tablet PO (21:22)
[2020-09-30] VITALS (15 sets, daily range): BP systolic 130–165; BP diastolic 58–113; PULSE 70–105; RESP 11–24; TEMP 36.2–36.6; O2SAT 90–99
[2020-09-30] MEDS: heparin drip 25,000 UNIT/500 ML PREMIX 49 UNIT IV (00:02)
[2020-09-30 01:34] LABS: Basophils % 0.2 %; Eosinophils # 0.4 10^3/uL (0.0-0.8); Eosinophils % 3.2 %; Hematocrit 23.9 % (42.0-52.0); Hemoglobin 7.2 g/dL (11.7-16.6); Lymphocytes # 1.2 10^3/uL (0.8-4.8); Lymphocytes % 10.4 %; Mean Corpuscular HGB Conc 30.1 g/dL (30.0-36.0); Mean Corpuscular Hemoglobin 28.5 pg (28.0-34.0); Mean Corpuscular Volume 94.5 fL (80-94); Mean Platelet Volume 10.3 fL (7.4-10.4); Monocytes # 1.1 10^3/uL (0.2-0.9); Monocytes % 9.4 %; Neutrophils # 8.55 10^3/uL (1.8-7.7); Neutrophils % 75.9 %; Nucleated Red Blood Cells % 0 %; Platelet Count 220 10^3/cmm (130-400); Red Blood Count 2.53 10^6/uL (4.1-5.3); Red Cell Distribution Width 15.4 % (12.1-15.1); White Blood Count 11.3 10^3/uL (4.0-10.0)
[2020-09-30 01:39] LABS: Partial Thromboplastin Time 48.5 SECONDS (23.9-36.7)
[2020-09-30 01:56] LABS: Alanine Aminotransferase 39 U/L (0-41); Albumin Level 2.1 g/dL (3.5-5.2); Alkaline Phosphatase 100 IU/L (40-130); Anion Gap 16.9 (5-19); Aspartate Amino Transferase 37 U/L (0-40); Blood Urea Nitrogen 76 mg/dL (8-23); Calcium 8.9 mg/dL (8.5-10.5); Carbon Dioxide 22 mmol/L (22-29); Chloride 95 mmol/L (98-107); Globulin 3.7 g/dL (1.3-4.6); Glomerular Filtration Rate 9.3 mL/min (90-130); Glucose 234 mg/dL (65-115); Osmolality Calculated 300 mOsm/kg (285-295); Potassium 3.9 mmol/L (3.5-5.1); Sodium 130 mmol/L (136-145); Total Bilirubin 0.2 mg/dL (0.15-1.2); Total Protein 5.8 g/dL (6.6-8.7)
[2020-09-30] MEDS: levothyroxine 75 mcg Tablet 150 MCG PO (05:24)
[2020-09-30] MEDS: allopurinol 300 mg Tablet PO (05:25)
[2020-09-30] MEDS: atorvastatin 40 mg Tablet 20 MG PO (05:25)
[2020-09-30] MEDS: pantoprazole DR 40 mg Tablet PO (05:26)
--- NOTE | 2020-09-30 06:09 | PC.NURSE ---
NURSING NOTE: APTT CALLED DR. LO ABOUT 48.5 PTT LEVEL. RECEIVED ORDERS TO INCREASE HEPARIN BY 4 UNITS AND REDRAW APTT IN 4 HOURS. COMPLETED AT THIS TIME.
[2020-09-30] MEDS: Dianeal low Ca w/2.5% dex 2,000 mL Bag 2000 ML INTRAPERIT ×3 (06:15→18:40)
[2020-09-30 06:47] LABS: Glucose Point of Care 218 mg/dL (70-110)
[2020-09-30] MEDS: cloNIDine 0.1 mg Tablet PO ×2 (08:48→18:29)
[2020-09-30] MEDS: iron polysaccharide complex 150 mg Capsule PO (08:54)
[2020-09-30] MEDS: dilTIAZem 60 mg Tablet PO ×3 (08:54→20:35)
[2020-09-30] MEDS: hyDRALAzine 50 mg Tablet PO ×3 (08:54→20:39)
[2020-09-30] MEDS: metoprolol tartrate 50 mg Tablet PO ×2 (08:54→18:29)
[2020-09-30] MEDS: calcium acetate 667 mg Capsule 1334 MG PO ×3 (08:55→18:29)
[2020-09-30] MEDS: cefTRIAXone 1,000 MG in sodium chloride 0.9% (plus) 50 ML 100 MG IV (08:56)
[2020-09-30] MEDS: iron sucrose 200 MG in sodium chloride 0.9% (100 ml) 100 ML 220 MG IV (08:58)
[2020-09-30] MEDS: polyethylene glycol 3350 Pkt 17 gm PO ×2 (08:59→18:35)
[2020-09-30] MEDS: HYDROcodone-acetaminophen 5-325 mg Tablet 1 TAB PO ×3 (09:08→18:49)
--- NOTE | 2020-09-30 09:14 | USCV_ITS ---
IreneLevi mcclendon Age: 65 Gender: M : 1955 Exam Date: 09/30/2020 13:08 Ordering Phys: Matt Barnes MD Technologist: Deyanira Friedman [place] [facility] [place] Indication: SWELLING,PAIN HISTORY: Upper extremity swelling. PROCEDURES: Venous duplex imaging was performed in only the right upper extremity. The following venous structures were evaluated: internal jugular vein, subclavian vein, axillary vein, and brachial veins. In addition, the basilic vein, cephalic vein, radial vein, and ulnar vein. Serial compression, augmentation maneuvers, and spectral Doppler flow evaluation were performed. FINDINGS: Comparison: 09/27/20. Right jugular DVT is resolving since the prior study. DVT seen just above the joining of the the Rt. Subclavian vein. The PICC is noted in the basilic vein. All other veins compress easily and have flow. Right Cephalic vein is small. CONCLUSIONS Mild improvement in right jugular DVT. No new DVT. Dr. Carin Granados DO (Electronically Signed) Final Date: 30 September 2020 14:33 S
--- NOTE | 2020-09-30 09:35 | PM.PN ---
Subjective Subjective: Interval history: will be getting MRI to assess extent of RUE clot today He reports PD going well Has LUE AVF Medications: Reviewed: Yes Vitals/I&O/Wt Last Vital Signs Temp 97.3 F L 09/30/20 07:17 Pulse 99 09/30/20 07:17 Resp 14 09/30/20 07:17 BP 130/70 09/30/20 08:48 Pulse Ox 97 09/30/20 07:17 09/29/20 09/30/20 09/30/20 22:59 06:59 14:59 Intake Total 2360 / 5455.450 1042.983 / 6498.433 240 / 240 Output Total 2550 / 4650 600 / 5250 Balance -190 / 805.450 442.983 / 1248.433 240 / 240 Weight last 48 hrs Weight 139.162 kg Weight 140.251 kg Weight 139.797 kg Physical Exam Const: COMMON NORMALS: no acute distress NUTRITIONAL APPEARANCE: obese Data : 09/30/20 01:06 09/30/20 01:06 Micro: Microbiology 09/30/20 01:06 Blood Culture - Preliminary Blood SPECIMEN COLLECTED 09/27/20 20:22 Blood Culture - Preliminary Blood Gram Negative Rods A&P Additional A&P Information 1. ESRD on peritoneal dialysis 2. DVT (catheter related) 3. Hypertension 4. Anemia 5. Hyponatremia Recommend: Continue current PD exchanges. Consider transfusion pRBC. Will order epogen but will take time to increase Hb. Restrict water. Attestations Medical Necessity Statement*: per primary service Time Spent in Patient Care: 16 - 35 minutes Coding Level of Care Code Acute Philosophy Lecturer for Breanna Aguero
[2020-09-30] MEDS: enoxaparin 40 mg/0.4 mL Syringe SUBCUT (11:12)
[2020-09-30] MEDS: enoxaparin 100 mg/mL Syringe SUBCUT (11:12)
[2020-09-30] MEDS: levofloxacin-dextrose 5 % 750 MG/150 ML PREMIX 100 MG IV (11:14)
[2020-09-30] MEDS: doxycycline 100 mg Tablet PO ×2 (11:30→20:35)
[2020-09-30 11:37] LABS: Glucose Point of Care 252 mg/dL (70-110)
--- NOTE | 2020-09-30 12:58 | PC.SOCIAL ---
*IMM* Patient received the important message from medicare. Copy initialled and placed in the chart.
--- NOTE | 2020-09-30 15:39 | MRR_ITS ---
PROCEDURE INFORMATION: Exam: MR Right Upper Extremity Joint Without Contrast; Shoulder Exam date and time: 09/30/2020 4:03 PM Age: 65 years old Clinical indication: Pain; Shoulder; Right; Prior surgery; Surgery date: 6+ months; Surgery type: Rotator cuff; Additional info: R arm, shoulder pain, bacteremia TECHNIQUE: Imaging protocol: MR of the Right upper extremity without contrast. Exam focused on the shoulder. COMPARISON: No relevant prior studies available. FINDINGS: There is a massive, full-thickness rotator cuff tear, involving the supraspinatus tendon and portions of the infraspinatus and subscapularis tendons. There is retraction to the glenohumeral joint line. Portions of the infraspinatus and subscapularis tendons remain intact. The long head of the biceps tendon is poorly seen. The biceps anchor is also poorly seen. There is mild glenohumeral osteoarthrosis. Circumferential labral changes are likely degenerative in nature. There is extensive periarticular soft tissue swelling. There are postsurgical changes in the proximal humeral shaft. There are subcortical cystic changes in the glenoid. No convincing acute bone marrow edema is appreciated. There is no evidence of acute fracture or dislocation. There are mild to moderate degenerative changes of the acromioclavicular joint. There is a massive glenohumeral joint effusion which is confluent with the subacromial/subdeltoid bursa. MR/MR shoulder RT wo con* [id number] IMPRESSION: 1. Massive, full-thickness, retracted rotator cuff tear. 2. Massive glenohumeral joint effusion with extensive periarticular soft tissue swelling. If there is clinical concern for intra-articular infection, joint aspiration may be useful. No convincing MR evidence of acute osteomyelitis. 3. Additional findings, as above.
--- NOTE | 2020-09-30 17:21 | P.PN_ITS ---
Subjective Subjective: Interval history: Patient seen bedside this afternoon, denies any acute events overnight. Tolerating regular diet he does have a decreased appetite this is typical for him. Denies any pain in the right foot. Have been performing dressing changes of Iodosorb. Patient denies any subjective nausea, vomiting, fever, chills, shortness of breath or chest pain. Vitals/I&O/Wt Last Vital Signs Temp 97.8 F 09/30/20 15:57 Pulse 80 09/30/20 15:57 Resp 20 H 09/30/20 15:57 BP 144/77 09/30/20 15:57 Pulse Ox 96 09/30/20 10:46 09/30/20 09/30/20 09/30/20 06:59 14:59 22:59 Intake Total 1042.983 / 6498.433 640 / 640 Output Total 600 / 5250 350 / 350 Balance 442.983 / 1248.433 290 / 290 Weight last 48 hrs Weight 306 lb 12.8 oz Weight 309 lb 3.2 oz Weight 308 lb 3.2 oz Physical Exam Narrative: EXAM NARRATIVE: Patient is alert and oriented ?3 and in no acute distress. The following is a focused lower extremity exam. VASCULAR: Dorsalis pedis and posterior tibial arteries palpable +1 bilaterally. Capillary refill time less than 5 seconds to the distal hallux bilaterally. Calf is supple and nontender proximally and distally. Diminished hair growth at legs and feet bilaterally, no hair growth appreciated to the level to dorsal toes. +1 pitting edema to the lower extremities. Palpable +1 popliteal artery bilaterally. NEUROLOGICAL: Protective sensation intact 0/10 sites, tested with [place] [employer] monofilament to bilateral feet. DERMATOLOGICAL: Wound to the medial aspect of the right first metatarsal phalangeal joint measures wound measurements 4.9 cm x 3.0 cm x 0.4 cm, no purulent drainage, no periwound erythema, no malodor. No proximal lymphangitic streaking. Wound is exposed to bone able to visualize the proximal and distal phalanx of the right hallux. MUSCULOSKELETAL: Muscle strength is 5 out of 5 in all 3 cardinal planes to bilateral foot and ankle. Pes planus foot type bilaterally. Ankle joint dorsiflexion is to neutral bilaterally. Reducible hammertoe deformities 2 through 5 bilaterally. Mild hallux abductovalgus deformity bilaterally, hallux is not track bound. Data : 09/30/20 01:06 09/30/20 01:06 Micro: Microbiology 09/30/20 14:12 Blood Culture - Preliminary Blood SPECIMEN COLLECTED 09/27/20 20:22 Blood Culture - Preliminary Blood Pseudomonas aeruginosa 09/30/20 01:06 Blood Culture - Preliminary Blood SPECIMEN COLLECTED A&P Assessment and plan (1) Diabetic peripheral neuropathy associated with type 2 diabetes mellitus: Status: Acute (2) ESRD (end stage renal disease): Status: Acute (3) Non-pressure chronic ulcer of other part of right foot with necrosis of bone: Status: Acute Mr. Bonilla is a 65-year-old male with osteomyelitis of the right hallux completing 6 weeks of IV antibiotics, 2 g of Rocephin infused daily via PICC line. Acute DVT of the right jugular, recommend infectious disease consultation as to discontinuing PICC line and potentially switching to oral antibiotics, appreciate infectious disease input in regards to this. Bone biopsy taken intraoperatively on 08/15/20 demonstrated no growth likely due to suppression as he was receiving empiric antibiotics prior to the procedure for several days. Wound bed culture taken 08/11/20 demonstrated strep G as well as staph aureus. Performed excisional debridement of nonviable epidermis, dermis, subcutaneous tissue down to and including fat layer, muscle and deep fascia of the right hallux wound, wound is clinically stable at this time without cellulitis, erythema or purulent drainage. -Continue once daily dressing change Iodosorb gel, sterile gauze and Omnifix tape -Patient may ambulate as tolerated with postop shoe to the right foot. Elevate right foot while at rest -Repeat x-ray shows stable postoperative changes no further osteolysis. -ABIs unable to be obtained due to noncompressible vessels, waveforms shows normal amplitude with loss of dicrotic notch -Patient is adamant to continue limb salvage, from my perspective he has poor healing potential however his wound is stable and limb salvage could be pursued would require continued infection control, recommend close collaboration with infectious disease, appreciate Dr. Roxann wallace, currently on doxycycline twice daily 100 mg and levofloxacin 750 mg every other day. Blood culture positive for Pseudomonas during this hospitalization. Would also benefit from wound care referral and follow-up at wound care following discharge from this hospitalization, may be a candidate for hyperbarics. He refuses any level of amputation at this time. Attestations Medical Necessity Statement*: Diabetic foot infection, right Coding Level of Care Code Acute Sql Report Writer for g Fwd Diagnoses Diabetic peripheral neuropathy associated with type 2 diabetes mellitus E11.42 ESRD (end stage renal disease) N18.6 Non-pressure chronic ulcer of other part of right foot with necrosis of bone L97.514
[2020-09-30 18:29] LABS: Glucose Point of Care 184 mg/dL (70-110)
--- NOTE | 2020-09-30 19:29 | PC.NURSE ---
tolerated mri of right shoulder well.dr tyler (transition mgr rn) in to see pt late this afternoon.no new orders received
--- NOTE | 2020-09-30 20:12 | PM.PN ---
Subjective Subjective: Interval history: Pain persists in the right arm, particularly in the shoulder. There is perhaps slight improvement. Less pain distally. Swelling is somewhat better in the distal arm. Persistent in the shoulder. Denies chest pain or pressure. No trouble breathing. is accompanying him at the bedside. Vitals/I&O/Wt Last Vital Signs Temp 97.7 F 09/30/20 19:34 Pulse 80 09/30/20 19:34 Resp 18 09/30/20 19:34 BP 145/83 09/30/20 19:34 Pulse Ox 96 09/30/20 10:46 09/30/20 09/30/20 09/30/20 06:59 14:59 22:59 Intake Total 1042.983 / 6498.433 2640 / 2640 360 / 3000 Output Total 600 / 5250 2850 / 2850 Balance 442.983 / 1248.433 -210 / -210 360 / 150 Weight last 48 hrs Weight 139.162 kg Weight 140.251 kg Weight 139.797 kg Physical Exam Const: COMMON NORMALS: no acute distress and patient oriented x3 HENMT: COMMON NORMALS: oropharynx normal Neck/C-Spine: COMMON NORMALS: no JVD Resp: COMMON NORMALS: normal respiratory effort and clear to auscultation bilaterally AUSCULTATION: clear to auscultation bilaterally Cardio: COMMON NORMALS: no JVD, regular rhythm, S1 normal heart sound present, S2 normal heart sound present and No murmurs present (Cardio) RHYTHM: regular rhythm HEART SOUNDS: S1 normal heart sound present and S2 normal heart sound present GI: COMMON NORMALS: Normal to inspection, nondistended, normoactive bowel sounds present, Soft to palpation and non-tender PALPATION: Yes Soft to palpation Extremity: COMMON NORMALS: no joint enlargement GENERAL: Yes edema (1+ ankle edema) OTHER: Swelling of right upper extremity, with some improvement distally, but with persistent swelling in the right shoulder. Shoulder tender to palpation, painful with passive range of motion. There is no significant erythema, it is not any significantly warmer to touch than other body parts. Wound over the dorsal/medial aspect of the right lower extremity first phalanx with bone exposure, with healthy-appearing surrounding tissue pink in coloration. There is a 0.5 x 3 cm irregularly shaped eschar anteriorly/distally from the wound. Noted some minimal serous/cloudy drainage. Neuro: COMMON NORMALS: patient oriented x3 and moves all extremities Skin: COMMON NORMALS: no rashes or lesions noted GENERAL SKIN EXAM: no rashes or lesions noted Data : 09/30/20 01:06 09/30/20 01:06 Micro: Microbiology 09/30/20 14:12 Blood Culture - Preliminary Blood SPECIMEN COLLECTED 09/27/20 20:22 Blood Culture - Preliminary Blood Pseudomonas aeruginosa 09/30/20 01:06 Blood Culture - Preliminary Blood SPECIMEN COLLECTED A&P Assessment and plan (1) DVT (deep venous thrombosis): With persistent pain of the right upper extremity, today particularly noting pain in the right shoulder, with persistent swelling there with actually improvement in swelling distally. Repeated duplex today with right jugular DVT, but otherwise noted patent vessels. He is for now continuing anticoagulation, although in effort to reduce the number of infusions with limited IV access as well, we discussed transitioning to Lovenox instead of heparin drip. We also briefly touched base on additional therapeutic options including thrombolysis and its benefits and risks, although on review of the repeat venous duplex and there does not appear to be extensive thrombosis of the right arm or subclavian venous system. MRI of the right shoulder obtained after discussion with him and his . I have reached out to our unemployment specialist for assistance in assessment of the noted large glenohumeral joint effusion, surrounding tissue edema in the setting of pseudomonal bacteremia, immune compromise. He has a massive rotator cuff tear about which the patient and his have told me earlier today. Our orthopedic surgeon has kindly agreed to review images more closely and consider utility of aspiration although so far per discussion it seems highly likely symptoms may be due to the rotator cuff tear associated effusion. There is no osteomyelitis. We have also had quite extensive discussion with him and his regarding his right lower extremity wound, current condition, reviewed the treatment he is reviewed so far, discussed the previous cultures, as well as currently positive blood cultures with gram-negative cyrus identified as Pseudomonas. We discussed therapeutic options going forward including risks and benefits of continuation of antibiotics with adjunctive dressing changes, debridements as needed, possibly hyperbaric oxygen, including resistance, C. difficile infection, and other complications associated with individual antibiotics. We discussed the somewhat diminishing returns given his wound so far has not healed after 6 weeks of IV antibiotics, and discussed continued risk of development of resistant organisms with prolonged duration of antibiotic treatments. Discussed also alternatives, including surgical treatment and amputation, which may lead to faster healing, reduce requirements of antibiotics, although itself also may be associated with poor wound healing given his underlying conditions and depending on the level of amputation. He and his spouse verbalized understanding of the benefits and risks of the alternatives, and for now would like to proceed in continue treatment as planned with transition to oral therapy which would target now also pseudomonal therapy. I have touched base also with his infectious disease doctor, and in addition to Levaquin will also add doxycycline to provide more robust staphylococcal coverage. He and his spouse would like to proceed with removal of the PICC line likely tomorrow. They will give additional consideration amputation as alternative to current treatment. Dressing change today. Additional culture obtained from the wound. So far there is no organism on Gram stain on repeat blood culture. Continue to elevate right upper extremity above heart level. Avoid unnecessary infusions. No IVs in the right arm. Status: Acute Qualifiers: Chronicity: acute DVT location: non-extremity vein Qualified Code(s): I82.90 - Acute embolism and thrombosis of unspecified vein (2) Bacteremia: Pseudomonas. Intermediate sensitivity to gentamicin. Antibiotic changed to Levaquin. Status: Acute (3) Diabetic foot ulcer associated with type 2 diabetes mellitus: Nonhealing ulcer with infection of right foot, osteomyelitis. Additional cultures obtained from the wound. Follow-up blood cultures obtained. Antibiotic changed to Levaquin, doxycycline. Discussed alternatives to current treatments include amputation and patient his will consider. Continue wound dressing changes as per podiatry recommendation. Wound culture appears has not been it collected, reinforced collection request with next dressing change. Status: Acute Qualifiers: Diabetic foot ulcer location: toe Laterality: right Non-pressure ulcer stage: with necrosis of muscle Qualified Code(s): E11.621 - Type 2 diabetes mellitus with foot ulcer; L97.513 - Non-pressure chronic ulcer of other part of right foot with necrosis of muscle (4) Osteomyelitis: As above. Status: Acute Qualifiers: Osteomyelitis type: unspecified type Osteomyelitis location: foot Laterality: right Qualified Code(s): M86.9 - Osteomyelitis, unspecified (5) ESRD (end stage renal disease): PD Status: Acute (6) Atrial fibrillation: Continue metoprolol. Oral Cardizem. Continue cardiac monitoring. Status: Acute Qualifiers: Atrial fibrillation type: unspecified Qualified Code(s): I48.91 - Unspecified atrial fibrillation (7) Chronic disease anemia: 1 unit PRBC transfusion requested by nephrology ordered. Monitor blood counts. Iron infusions held for now to limit additional edema and holding of for now while active infection/bacteremia. Status: Acute (8) DM type 2 (diabetes mellitus, type 2): Sliding scale insulin. Diabetic diet. Status: Acute Attestations Medical Necessity Statement*: Continue admission for assessment management of complicated wound infection of right lower extremity, pseudomonal bacteremia, PICC line associated thrombosis, right shoulder pain, joint effusion in the setting of poorly controlled diabetes, ESRD and other comorbidities. Coding Level of Care Code Acute Director Of Event Management for [facility] Fwd Diagnoses DVT (deep venous thrombosis) I82.90 Chronicity: acute DVT location: non-extremity vein Bacteremia R78.81 Diabetic foot ulcer associated with type 2 diabetes mellitus E11.621; L97.513 Diabetic foot ulcer location: toe Laterality: right Non-pressure ulcer stage: with necrosis of muscle Osteomyelitis M86.9 Osteomyelitis type: unspecified type Osteomyelitis location: foot Laterality: right ESRD (end stage renal disease) N18.6 Atrial fibrillation I48.91 Atrial fibrillation type: unspecified Chronic disease anemia D63.8 DM type 2 (diabetes mellitus, type 2) E11.9
[2020-09-30 20:19] LABS: Glucose Point of Care 248 mg/dL (70-110)
[2020-09-30] MEDS: citalopram 20 mg Tablet PO (20:35)
[2020-09-30] MEDS: losartan 50 mg Tablet 100 MG PO (20:35)
[2020-09-30] MEDS: sodium chloride 0.9% (100 ml) 100 ML (21:31)
[2020-10-01] VITALS (9 sets, daily range): BP systolic 110–176; BP diastolic 52–119; PULSE 68–101; RESP 16–20; TEMP 36.4–36.9; O2SAT 96–100
[2020-10-01] MEDS: Dianeal low Ca w/2.5% dex 2,000 mL Bag 2000 ML INTRAPERIT ×4 (01:42→18:57)
--- NOTE | 2020-10-01 03:21 | PC.NURSE ---
NURSE NOTE: SHIFT SUMMARY: PT ALERT AND ORIENTED X4; MOVES ALL EXTREMITIES AND FOLLOWS ALL COMMANDS. DENIES PAIN AT PRESENT. 1 UNIT PRBC'S GIVEN FOR HGB OF 7.2. PATIENT TOLERATED WELL WITH NO REACTION OR DISTRESS NOTED. PERITONEAL DIALYSIS COMPLETED ORDERED/SEE CHART FOR DETAILS. CURRENTLY RESTING WITH EYES CLOSED; RESP EVEN AND NON LABORED. ALL VS AND ASSESSMENTS CHARTED.
[2020-10-01] MEDS: HYDROcodone-acetaminophen 5-325 mg Tablet 1 TAB PO ×2 (04:32→13:33)
[2020-10-01 04:52] LABS: Basophils % 0.2 %; Eosinophils # 0.4 10^3/uL (0.0-0.8); Eosinophils % 3.7 %; Hematocrit 25.1 % (42.0-52.0); Hemoglobin 7.7 g/dL (11.7-16.6); Lymphocytes % 9.5 %; Mean Corpuscular HGB Conc 30.7 g/dL (30.0-36.0); Mean Corpuscular Volume 91.3 fL (80-94); Mean Platelet Volume 10.3 fL (7.4-10.4); Monocytes # 1.1 10^3/uL (0.2-0.9); Neutrophils # 8.03 10^3/uL (1.8-7.7); Neutrophils % 75.5 %; Nucleated Red Blood Cells % 0 %; Platelet Count 224 10^3/cmm (130-400); Red Blood Count 2.75 10^6/uL (4.1-5.3); Red Cell Distribution Width 17.1 % (12.1-15.1); White Blood Count 10.6 10^3/uL (4.0-10.0)
[2020-10-01 05:10] LABS: Alanine Aminotransferase 35 U/L (0-41); Albumin Level 2.2 g/dL (3.5-5.2); Alkaline Phosphatase 91 IU/L (40-130); Anion Gap 16.1 (5-19); Aspartate Amino Transferase 26 U/L (0-40); Blood Urea Nitrogen 70 mg/dL (8-23); Calcium 9.1 mg/dL (8.5-10.5); Carbon Dioxide 24 mmol/L (22-29); Chloride 96 mmol/L (98-107); Globulin 3.5 g/dL (1.3-4.6); Glomerular Filtration Rate 9.3 mL/min (90-130); Glucose 187 mg/dL (65-115); Osmolality Calculated 299 mOsm/kg (285-295); Phosphorus 5.5 mg/dL (2.5-4.5); Potassium 4.1 mmol/L (3.5-5.1); Sodium 132 mmol/L (136-145); Total Bilirubin 0.2 mg/dL (0.15-1.2); Total Protein 5.7 g/dL (6.6-8.7)
[2020-10-01] MEDS: levothyroxine 75 mcg Tablet 150 MCG PO (06:09)
[2020-10-01] MEDS: allopurinol 300 mg Tablet PO (06:09)
[2020-10-01] MEDS: atorvastatin 40 mg Tablet 20 MG PO (06:09)
[2020-10-01] MEDS: pantoprazole DR 40 mg Tablet PO (06:09)
[2020-10-01 07:17] LABS: Glucose Point of Care 188 mg/dL (70-110)
[2020-10-01] MEDS: hyDRALAzine 50 mg Tablet PO ×3 (08:53→21:10)
[2020-10-01] MEDS: metoprolol tartrate 50 mg Tablet PO ×2 (08:53→17:48)
[2020-10-01] MEDS: cloNIDine 0.1 mg Tablet PO ×2 (08:53→17:48)
[2020-10-01] MEDS: dilTIAZem 60 mg Tablet PO ×3 (08:54→21:10)
[2020-10-01] MEDS: polyethylene glycol 3350 Pkt 17 gm PO ×2 (09:01→18:56)
--- NOTE | 2020-10-01 09:49 | PC.NURSE ---
tele-nephrology at at bedside for assessment of patient and discussion of Plan of care, instructions from Dr. Corea to start glucerna supplements BID between meal for increase protein intake
--- NOTE | 2020-10-01 10:34 | P.PN_ITS ---
Subjective Subjective: Interval history: feels well Medications: Reviewed: Yes Vitals/I&O/Wt Last Vital Signs Temp 98.0 F 10/01/20 07:22 Pulse 87 10/01/20 07:22 Resp 20 H 10/01/20 07:22 BP 110/52 10/01/20 07:22 Pulse Ox 98 10/01/20 07:22 09/30/20 10/01/20 10/01/20 22:59 06:59 14:59 Intake Total 2600 / 5240 375 / 5615 120 / 120 Output Total 2850 / 5700 2375 / 8075 Balance -250 / -460 -2000 / -2460 120 / 120 Weight last 48 hrs Weight 139.162 kg Physical Exam Const: COMMON NORMALS: no acute distress GENERAL APPEARANCE: cooperative Extremity: GENERAL: No edema Data : 10/01/20 04:25 10/01/20 04:25 Other Labs: phos 5.5, albumin 2.2, calcium 9.1 Micro: Microbiology 09/30/20 01:06 Blood Culture - Preliminary Blood NEGATIVE TO DATE 09/30/20 14:12 Blood Culture - Preliminary Blood SPECIMEN COLLECTED 09/27/20 20:22 Blood Culture - Preliminary Blood Pseudomonas aeruginosa A&P Additional A&P Information 1. ESRD on peritoneal dialysis, AVF LUE 2. DVT (catheter related) 3. Hypertension, well-controlled 4. Anemia, Hb improved s/p transfusion 1u PRBC, procrit yesterday 5. Hyponatremia, stable Recommend: Continue current PD exchanges, 2.5%. Consider transfusion pRBC. Will order epogen but will take time to increase Hb. Restrict water. Attestations Medical Necessity Statement*: per primary service Time Spent in Patient Care: 16 - 35 minutes Coding Level of Care Code Acute Export Sales Assistant for [facility]
[2020-10-01 10:51] LABS: Glucose Point of Care 212 mg/dL (70-110)
[2020-10-01] MEDS: doxycycline 100 mg Tablet PO ×2 (10:52→21:08)
[2020-10-01] MEDS: enoxaparin 100 mg/mL Syringe SUBCUT (10:54)
[2020-10-01] MEDS: enoxaparin 40 mg/0.4 mL Syringe SUBCUT (10:54)
[2020-10-01] MEDS: magnesium citrate Btl 296 mL 150 ML PO (10:59)
[2020-10-01] MEDS: calcium acetate 667 mg Capsule 1334 MG PO ×2 (11:54→17:48)
--- NOTE | 2020-10-01 13:47 | PC.CHAP ---
Pastoral Care Encounter/Spiritual Assessment Type of Contact [] Declined office technology professor visit [] Patient/Family/Request visit [] Outpatient visit [] Follow-up visit [] Physician referral [] Code/Alert [xx] Routine visit [] Staff referral [] Actively dying [] Patient sleeping [] Family support [] [] Out of room [] Palliative care [] [] Receiving care in room [] Pre-surgical visit [] Trauma [] Long length of stay [] ICU visit [xx] Other: Follow up recommended Relational/Emotional Strength [] Patient feels connected with others/family/visitors/staff [] Distress [] Loneliness/isolation [] Abandonment Spirituality of Patient [] Person of Kaitlyn [] Attends Quaker of their Kaitlyn [] Believes in Prayer [] Reads Bible or Anabaptist materials [] There are Spiritual issues to be addressed Loader Unloader Interventions [] Prayer [] Active listening [] Non-anxious presence [] Spiritual/emotional support [] Crisis/trauma care [] Spiritual counseling [] Bereavement support [] Provided bereavement packet [] Provided Bible/devotional materials [] Provided toy/stuffed animal, coloring book to patient or family member [] Provided Communion [] Anointing/[place] [] Salvation [] Completed spiritual assessment [] Other: Impact on Illness or Injury [] Angry [] Fearful [] Anxious [] Often cries [] Exhaustion [] Unable to work [] Unable to attend catholic [] Unable to walk/stand [] Unable to read [] Unable to drive [] Unable to eat/drink [] Unable to sleep [] Unable to be with family [] Patient intubated [] Other: Summary Patient in bathroom requested Loader Unloader get a nurse to help him as he was in physical distress voiding and needed help. Loader Unloader told nurse. She stated his situation was known and required other help which will take time due to his physical condition at present. Regular office technology professor visit not completed. Follow up needed. Time spent with patient 6 minutes
--- NOTE | 2020-10-01 16:03 | PM.PN ---
Subjective Subjective: Interval history: He is feeling somewhat better still today. Swelling in right upper extremity is decreasing. Pain is gradually showing improvement. He denies any new symptoms. He was seen by the commercial finance manager also last night and his dressing was changed. He denies any new symptoms more proximally in the right leg. Last night he received a blood transfusion. Today he was having some constipation for which he was given some medications. He is being visited by his . Vitals/I&O/Wt Last Vital Signs Temp 97.5 F L 10/01/20 15:18 Pulse 68 10/01/20 15:18 Resp 17 10/01/20 15:18 BP 157/105 10/01/20 15:18 Pulse Ox 100 10/01/20 15:18 10/01/20 10/01/20 10/01/20 06:59 14:59 22:59 Intake Total 375 / 5615 480 / 480 Output Total 2375 / 8075 100 / 100 Balance -2000 / -2460 380 / 380 Weight last 48 hrs Weight 139.162 kg Physical Exam Const: COMMON NORMALS: no acute distress and patient oriented x3 HENMT: COMMON NORMALS: oropharynx normal Neck/C-Spine: COMMON NORMALS: no JVD Resp: COMMON NORMALS: normal respiratory effort and clear to auscultation bilaterally AUSCULTATION: clear to auscultation bilaterally Cardio: COMMON NORMALS: no JVD, regular rhythm, S1 normal heart sound present, S2 normal heart sound present and No murmurs present (Cardio) RHYTHM: regular rhythm HEART SOUNDS: S1 normal heart sound present and S2 normal heart sound present GI: COMMON NORMALS: Normal to inspection, nondistended, normoactive bowel sounds present, Soft to palpation and non-tender PALPATION: Yes Soft to palpation Extremity: COMMON NORMALS: no joint enlargement GENERAL: Yes edema (1+ bilateral lower extremity edema) OTHER: Swelling of right upper extremity is decreasing, with some improvement distally. Less edema but persistent, compared to the other side in the shoulder. No erythema. No warmth. Shoulder tender to palpation, painful with passive range of motion, although is able to move the arm more. Minimal erythema, it is not any significantly warmer to touch than other body parts. No expansion of the wound of R hallux. There is a 0.5 x 3 cm irregularly shaped eschar anteriorly/distally from the wound. Neuro: COMMON NORMALS: patient oriented x3 and moves all extremities Skin: COMMON NORMALS: no rashes or lesions noted GENERAL SKIN EXAM: no rashes or lesions noted Data : 10/01/20 04:25 10/01/20 04:25 Micro: Microbiology 09/30/20 15:25 Gram Stain - Final Toe - #1 Wound Culture - Preliminary 09/30/20 14:12 Blood Culture - Preliminary Blood NEGATIVE TO DATE 09/30/20 01:06 Blood Culture - Preliminary Blood NEGATIVE TO DATE A&P Assessment and plan (1) Bacteremia: Pseudomonas. Low-grade. 1/3 bottles. Intermediate sensitivity to gentamicin. So far no growth on repeat cultures. DC PICC line. Continue Levaquin PO. Status: Acute (2) DVT (deep venous thrombosis): Continue anticoagulation for right jugular DVT. Today we will remove his PICC line as this is day 4 of anticoagulation. Swelling appears to continue to improve gradually. Pain is somewhat improving. Some persistent swelling in the right shoulder, with results of the MRI as noted previously with tentative plans for aspiration of fluid for additional analysis. Okay to continue Lovenox. Continue to elevate right upper extremity above heart level. Avoid unnecessary infusions. No IVs in the right arm. Status: Acute Qualifiers: Chronicity: acute DVT location: non-extremity vein Qualified Code(s): I82.90 - Acute embolism and thrombosis of unspecified vein (3) Diabetic foot ulcer associated with type 2 diabetes mellitus: Ultrasound ISAIAH could not be obtained due to noncompressible arteries bilaterally. TBI also could not be obtained. Discussing with the ultrasonography tech color Doppler reportedly was attempted. Flow could not be reliably detected in the distal foot/toes. Discussed this with patient and his . As it appears his goal continues to be salvage of the forefoot, they are interested in pursuing CT angiogram of aorta with runoff to assess whether there may be significant peripheral artery disease and major vessels relief of which may allow for better perfusion lower down. They understand additional risks may be associated with the study. Discussed this with nephrology as well, and should be okay to proceed. Timing of the study in relation to dialysis not very important as he is having peritoneal dialysis. He requests that the study be done tomorrow due to having received laxatives today. We will schedule it for tomorrow morning. Today transition to oral antibiotics with removal of PICC line as above. Levaquin, doxycycline. Nonhealing ulcer with infection of right foot, osteomyelitis. Additional cultures obtained from the wound 09/30. Follow-up blood cultures. Continue wound dressing changes as per podiatry recommendation. Status: Acute Qualifiers: Diabetic foot ulcer location: toe Laterality: right Non-pressure ulcer stage: with necrosis of muscle Qualified Code(s): E11.621 - Type 2 diabetes mellitus with foot ulcer; L97.513 - Non-pressure chronic ulcer of other part of right foot with necrosis of muscle (4) Osteomyelitis: As above. Status: Acute Qualifiers: Laterality: right Osteomyelitis location: foot Osteomyelitis type: unspecified type Qualified Code(s): M86.9 - Osteomyelitis, unspecified (5) Effusion of glenohumeral joint of right upper extremity: Tentative plan for fluid aspiration for additional analysis tomorrow. Okay to continue Lovenox. Status: Acute (6) ESRD (end stage renal disease): PD He and his request to change diet from dialysis renal diet. Stated his print line supervisor recommends high-protein diet with limitation of dairy/low phosphorus. Adjusted. Status: Acute (7) Atrial fibrillation: Continue metoprolol. Oral Cardizem. Continue cardiac monitoring. Status: Acute Qualifiers: Atrial fibrillation type: unspecified Qualified Code(s): I48.91 - Unspecified atrial fibrillation (8) Chronic disease anemia: 1 unit PRBC transfusion received 09/30. Monitor blood counts. Status: Acute (9) DM type 2 (diabetes mellitus, type 2): Sliding scale insulin. Diabetic diet. Add 5 units of Lantus. Check A1c. Status: Acute Attestations Medical Necessity Statement*: Continue admission for anticoagulation due to PICC line associated right jugular VTE, removal of PICC line, transition to oral antibiotics, additional assessment and treatment of pseudomonal bacteremia, additional assessment of right shoulder effusion. Coding Level of Care Code Acute Unit Support Representative for [facility] Fwd Exam Comprehensive Diagnoses Bacteremia R78.81 DVT (deep venous thrombosis) I82.90 Chronicity: acute DVT location: non-extremity vein Diabetic foot ulcer associated with type 2 diabetes mellitus E11.621; L97.513 Diabetic foot ulcer location: toe Laterality: right Non-pressure ulcer stage: with necrosis of muscle Osteomyelitis M86.9 Laterality: right Osteomyelitis location: foot Osteomyelitis type: unspecified type Effusion of glenohumeral joint of right upper extremity M25.411 ESRD (end stage renal disease) N18.6 Atrial fibrillation I48.91 Atrial fibrillation type: unspecified Chronic disease anemia D63.8 DM type 2 (diabetes mellitus, type 2) E11.9
[2020-10-01 17:30] LABS: Glucose Point of Care 187 mg/dL (70-110)
--- NOTE | 2020-10-01 17:47 | P.PN_ITS ---
Subjective Subjective: Interval history: Patient evaluated this afternoon he is doing well, he was sitting in the chair in the corner of his room states that he is trying to eat more protein, still has a poor appetite this is his baseline. Denies any pain to the right foot. No strikethrough at his right foot dressing. Vitals/I&O/Wt Last Vital Signs Temp 97.5 F L 10/01/20 15:18 Pulse 68 10/01/20 15:18 Resp 17 10/01/20 15:18 BP 157/105 10/01/20 15:18 Pulse Ox 100 10/01/20 15:18 10/01/20 10/01/20 10/01/20 06:59 14:59 22:59 Intake Total 375 / 5615 480 / 480 Output Total 2375 / 8075 100 / 100 Balance -2000 / -2460 380 / 380 Weight last 48 hrs Weight 306 lb 12.8 oz Physical Exam Narrative: EXAM NARRATIVE: Patient is alert and oriented ?3 and in no acute distress. The following is a focused lower extremity exam. VASCULAR: Dorsalis pedis and posterior tibial arteries palpable +1 bilaterally. Capillary refill time less than 5 seconds to the distal hallux bilaterally. Calf is supple and nontender proximally and distally. Diminished hair growth at legs and feet bilaterally, no hair growth appreciated to the level to dorsal toes. +1 pitting edema to the lower extremities. Palpable +1 popliteal artery bilaterally. NEUROLOGICAL: Protective sensation intact 0/10 sites, tested with Gillespie Sergei monofilament to bilateral feet. DERMATOLOGICAL: Wound to the medial aspect of the right first metatarsal phalangeal joint measures wound measurements 4.9 cm x 3.0 cm x 0.4 cm, no purulent drainage, no periwound erythema, no malodor. No proximal lymphangitic streaking. Wound is exposed to bone able to visualize the proximal and distal phalanx of the right hallux. MUSCULOSKELETAL: Muscle strength is 5 out of 5 in all 3 cardinal planes to b ilateral foot and ankle. Pes planus foot type bilaterally. Ankle joint dorsiflexion is to neutral bilaterally. Reducible hammertoe deformities 2 through 5 bilaterally. Mild hallux abductovalgus deformity bilaterally, hallux is not track bound. Data : 10/01/20 04:25 10/01/20 04:25 Micro: Microbiology 09/30/20 15:25 Gram Stain - Final Toe - #1 Wound Culture - Preliminary 09/30/20 14:12 Blood Culture - Preliminary Blood NEGATIVE TO DATE 09/30/20 01:06 Blood Culture - Preliminary Blood NEGATIVE TO DATE A&P Assessment and plan (1) Diabetic peripheral neuropathy associated with type 2 diabetes mellitus: Status: Acute (2) ESRD (end stage renal disease): Status: Acute (3) Non-pressure chronic ulcer of other part of right foot with necrosis of bone: Status: Acute Mr. Bonilla is a 65-year-old male with osteomyelitis of the right hallux completing 6 weeks of IV antibiotics, 2 g of Rocephin infused daily via PICC line. Acute DVT of the right jugular, recommend infectious disease consultation as to discontinuing PICC line and potentially switching to oral antibiotics, appreciate infectious disease input in regards to this. Bone biopsy taken intraoperatively on 08/15/20 demonstrated no growth likely due to suppression as he was receiving empiric antibiotics prior to the procedure for several days. Wound bed culture taken 08/11/20 demonstrated strep G as well as staph aureus. Performed excisional debridement of nonviable epidermis, dermis, subcutaneous tissue down to and including fat layer, muscle and deep fascia of the right hallux wound, wound is clinically stable at this time without cellulitis, erythema or purulent drainage. -Continue once daily dressing change Iodosorb gel, sterile gauze and Omnifix tape -Patient may ambulate as tolerated with postop shoe to the right foot. Elevate right foot while at rest -Repeat x-ray shows stable postoperative changes no further osteolysis. -ABIs unable to be obtained due to noncompressible vessels, waveforms shows nor mal amplitude with loss of dicrotic notch. Plans for CT angiogram of abdominal aorta with runoff. -Patient is adamant to continue limb salvage, from my perspective he has poor healing potential however his wound is stable and limb salvage could be pursued would require continued infection control, recommend close collaboration with infectious disease, appreciate Dr. Roxann wallace, currently on doxycycline twice daily 100 mg and levofloxacin 750 mg every other day. Blood culture positive for Pseudomonas during this hospitalization. Would also benefit from wound care referral and follow-up at wound care following discharge from this hospitalization, may be a candidate for hyperbarics. He refuses any level of amputation at this time. -I do not anticipate any surgical intervention during this hospitalization. Once again will require wound care referral on discharge for continued limb salvage. Attestations Medical Necessity Statement*: Osteomyelitis right foot Coding Level of Care Code Acute Software Quality Test Engineer for Breanna Highd Diagnoses Diabetic peripheral neuropathy associated with type 2 diabetes mellitus E11.42 ESRD (end stage renal disease) N18.6 Non-pressure chronic ulcer of other part of right foot with necrosis of bone L97.514
[2020-10-01 20:16] LABS: Glucose Point of Care 167 mg/dL (70-110)
[2020-10-01] MEDS: losartan 50 mg Tablet 100 MG PO (21:09)
[2020-10-01] MEDS: citalopram 20 mg Tablet PO (21:10)
[2020-10-01] MEDS: insulin glargine 100 units/1 mL 5 UNIT SUBCUT (21:10)
[2020-10-02] VITALS (15 sets, daily range): BP systolic 115–181; BP diastolic 66–105; PULSE 67–119; RESP 12–20; TEMP 36.2–36.8; O2SAT 95–98
[2020-10-02] MEDS: Dianeal low Ca w/2.5% dex 2,000 mL Bag 2000 ML INTRAPERIT ×5 (01:00→22:15)
--- NOTE | 2020-10-02 03:26 | PC.NURSE ---
PT IS RESTING IN BED. PT DENIES PAIN. WILL CONTINUE TO MONITOR.
[2020-10-02 03:59] LABS: Estmated Average Glucose 137; Hemoglobin A1C 6.4 % (4.0-6.0)
[2020-10-02] MEDS: HYDROcodone-acetaminophen 5-325 mg Tablet 1 TAB PO ×3 (04:20→20:46)
[2020-10-02] MEDS: allopurinol 300 mg Tablet PO (05:52)
[2020-10-02] MEDS: atorvastatin 40 mg Tablet 20 MG PO (05:53)
[2020-10-02] MEDS: pantoprazole DR 40 mg Tablet PO (05:54)
[2020-10-02] MEDS: levothyroxine 75 mcg Tablet 150 MCG PO (05:54)
[2020-10-02 07:13] LABS: Glucose Point of Care 218 mg/dL (70-110)
[2020-10-02] MEDS: metoprolol tartrate 50 mg Tablet PO ×2 (08:16→17:20)
[2020-10-02] MEDS: cloNIDine 0.1 mg Tablet PO ×2 (08:16→17:20)
[2020-10-02] MEDS: levoFLOXacin 750 mg Tablet PO (08:16)
[2020-10-02] MEDS: dilTIAZem 60 mg Tablet PO ×3 (08:16→20:46)
[2020-10-02] MEDS: hyDRALAzine 50 mg Tablet PO ×3 (08:16→20:46)
[2020-10-02] MEDS: calcium acetate 667 mg Capsule 1334 MG PO ×3 (08:57→17:20)
--- NOTE | 2020-10-02 09:21 | DCPLANNER ---
IMM completed with pt on 10/02/20 @ [id number]. Copy of rights given to pt.
--- NOTE | 2020-10-02 09:31 | PM.PN ---
Subjective Subjective: Interval history: No complaints. PIC has been removed. currently no IV access Pt and RN reports clear PD fluid, no issues with access site Medications: Reviewed: Yes Vitals/I&O/Wt Last Vital Signs Temp 97.1 F L 10/02/20 07:21 Pulse 82 10/02/20 07:21 Resp 14 10/02/20 07:21 BP 135/105 10/02/20 08:16 Pulse Ox 95 10/02/20 07:21 10/01/20 10/02/20 10/02/20 22:59 06:59 14:59 Intake Total 2060 / 2540 360 / 360 Output Total 1700 / 1800 350 / 2150 Balance 360 / 740 -350 / 390 360 / 360 Weight last 48 hrs Weight 139.162 kg Physical Exam Extremity: GENERAL: Yes edema Data : 10/02/20 10:24 10/02/20 10:24 Micro: Microbiology 09/30/20 01:06 Blood Culture - Preliminary Blood Gram Negative Rods 09/30/20 15:25 Gram Stain - Final Toe - #1 Wound Culture - Preliminary 09/30/20 14:12 Blood Culture - Preliminary Blood NEGATIVE TO DATE A&P Additional A&P Information 1. ESRD on peritoneal dialysis, AVF LUE 2. DVT (catheter related) 3. Hypertension, DM, PVD 4. Anemia, s/p transfusion 1u PRBC, procrit 09/30/20 5. Hyponatremia, with edema, will increase PD exchanges to 5x daily 6. Pseudomonas bacteremia, BC 09/30 growing GNR. Ulcer, OM right foot. Recommend: Continue current PD exchanges, 2.5%. Restrict water. Protein supplement. Okay to proceed with CTA. No BPs, IVs, blood draws left arm. If needed can place left IJ or EJ catheter Attestations Medical Necessity Statement*: per primary service Time Spent in Patient Care: 16 - 35 minutes Coding Level of Care Code Acute Cardiovascular Rn for Breanna Aguero
--- NOTE | 2020-10-02 09:43 | USR_ITS ---
PROCEDURE INFORMATION: Exam: US Noninvasive Physiologic Study of the right Lower Extremity, Limited Exam date and time: 10/02/2020 1:16 PM Age: 65 years old Clinical indication: Symptoms: Non-healing wound right foot. Ordering physician wants to assess for any abscess or fluid collection in the right leg. ; Additional info: Pls assess if any abscesses/fluid collections in R leg TECHNIQUE: Imaging protocol: Limited study of the right lower extremity. COMPARISON: No relevant prior studies available. FINDINGS: There is diffuse edema in the visualized soft tissues. No discrete fluid collection and/or abscess. US/US soft tissue/extremity 51313 IMPRESSION: Soft tissue edema. No abscess seen.
--- NOTE | 2020-10-02 09:43 | CTR_ITS ---
PROCEDURE INFORMATION: Exam: CT Chest With Contrast; Diagnostic Exam date and time: 10/02/2020 1:08 PM Age: 65 years old Clinical indication: Abnormal findings; Abnormal lab test; Elevated wbc; Abnormal diagnostic tests; Abnormal ekg; Prior surgery; Surgery date: 6+ months; Surgery type: Dialysis cath; Patient HX: Persistent bacteremia w/o pain TECHNIQUE: Imaging protocol: Diagnostic computed tomography of the chest with intravenous contrast. Radiation optimization: All CT scans at this facility use at least one of these dose optimization techniques: automated exposure control; mA and/or kV adjustment per patient size (includes targeted exams where dose is matched to clinical indication); or iterative reconstruction. Contrast material: VISI 320; Contrast volume: 95 ml; Contrast route: INTRAVENOUS (IV); COMPARISON: CR XR chest 1V portable [id number] 09/28/2020 12:28 AM RADIATION DOSE METRICS: Total DLP (mGy-cm): 2873.91 FINDINGS: Lungs: Subsegmental atelectasis is present in the lung bases. No pneumonia is seen. Pleural space: There is a tiny right pleural effusion. There is no pneumothorax. Heart: The heart is not enlarged. There is calcification of the coronary arteries. Aorta: There is mild calcification of the aorta but there is no aneurysm. Lymph nodes: Unremarkable. No enlarged lymph nodes. Bones/joints: Degenerative changes are present in the spine with sclerosis and osteophytes. Soft tissues: Unremarkable. IMPRESSION: 1. Tiny right pleural effusion. No pneumonia is seen. 2. Coronary artery calcification. 3. No other acute abnormalities are seen in the chest. PROCEDURE INFORMATION: Exam: CT Abdomen And Pelvis With Contrast Exam date and time: 10/02/2020 1:08 PM Age: 65 years old Clinical indication: Abnormal findings; Abnormal lab test; Elevated wbc; Abnormal diagnostic tests; Abnormal ekg; Prior surgery; Surgery date: 6+ months; Surgery type: Dialysis cath; Patient HX: Persistent bacteremia w/o pain TECHNIQUE: Imaging protocol: Computed tomography of the abdomen and pelvis with intravenous contrast. Radiation optimization: All CT scans at this facility use at least one of these dose optimization techniques: automated exposure control; mA and/or kV adjustment per patient size (includes targeted exams where dose is matched to clinical indication); or iterative reconstruction. Contrast material: VISI 320; Contrast volume: 95 ml; Contrast route: INTRAVENOUS (IV); COMPARISON: CR XR chest 1V portable [id number] 09/28/2020 12:28 AM RADIATION DOSE METRICS: Total DLP (mGy-cm): 2873.91 FINDINGS: Tubes, catheters and devices: A dialysis catheter is present in the lower pelvis. Small amount of free fluid is present in the abdomen consistent with intraperitoneal dialysis. There are few tiny bubbles of free air consistent with the presence of the dialysis catheter. Liver: Normal. No mass. Gallbladder and bile ducts: Normal. No calcified stones. No ductal dilation. Pancreas: Normal. No ductal dilation. Spleen: Normal. No splenomegaly. Adrenal glands: Normal. No mass. Kidneys and ureters: Normal. No hydronephrosis. Stomach and bowel: Unremarkable. No obstruction. No mucosal thickening. Appendix: Appendectomy. Intraperitoneal space: See Tubes, catheters and devices finding. Vasculature: Unremarkable. No abdominal aortic aneurysm. Lymph nodes: Unremarkable. No enlarged lymph nodes. Urinary bladder: Unremarkable as visualized. Reproductive: Unremarkable as visualized. Bones/joints: Degenerative changes are present in the spine. Soft tissues: There is subcutaneous edema around the abdomen and pelvis consistent with anasarca. CT/CT chest abd pel w con* IMPRESSION: 1. A dialysis catheter is present. Free intraperitoneal fluid and a small amount of free air are consistent with the presence of the dialysis catheter. 2. Subcutaneous edema consistent with anasarca. 3. No definite acute abnormalities are seen within the abdomen and pelvis. Radiation Dose CTDIVOL = (mGy): DLP = 2873.91~2873.91 (mGy-cm)
--- NOTE | 2020-10-02 09:45 | PM.PN ---
Subjective Subjective: Interval history: Overall he feels he is gradually improving. Swelling in the right arm is coming down little bit more. Pain is little better. Discussed with him regarding noted positive repeat blood culture for gram-negative cyrus. Discussed options for additional diagnostic options and he is agreeable with the plan as outlined below. He has not had any abdominal pain. He has not had any chest pain, no trouble breathing. Vitals/I&O/Wt Last Vital Signs Temp 97.1 F L 10/02/20 07:21 Pulse 82 10/02/20 07:21 Resp 14 10/02/20 07:21 BP 135/105 10/02/20 08:16 Pulse Ox 95 10/02/20 07:21 10/01/20 10/02/20 10/02/20 22:59 06:59 14:59 Intake Total 2060 / 2540 360 / 360 Output Total 1700 / 1800 350 / 2150 Balance 360 / 740 -350 / 390 360 / 360 Weight last 48 hrs Weight 139.162 kg Physical Exam Const: COMMON NORMALS: no acute distress and patient oriented x3 HENMT: COMMON NORMALS: oropharynx normal Neck/C-Spine: COMMON NORMALS: no JVD Resp: COMMON NORMALS: normal respiratory effort and clear to auscultation bilaterally AUSCULTATION: clear to auscultation bilaterally Cardio: COMMON NORMALS: no JVD, regular rhythm, S1 normal heart sound present, S2 normal heart sound present and No murmurs present (Cardio) RHYTHM: regular rhythm HEART SOUNDS: S1 normal heart sound present and S2 normal heart sound present GI: COMMON NORMALS: Normal to inspection, nondistended, normoactive bowel sounds present, Soft to palpation and non-tender PALPATION: Yes Soft to palpation Extremity: COMMON NORMALS: no joint enlargement GENERAL: Yes edema (1+ bilateral lower extremity edema) OTHER: Swelling of RUE decreasing. He is regained quite a bit of mobility, especially in the distal arm. Only mild edema currently. No erythema. No warmth. Shoulder tender, still painful with passive range of motion, although is able to move the arm more. No expansion of the wound of R hallux. There is a 0.5 x 3 cm irregularly shaped eschar anteriorly/distally from the wound. No drainage. Neuro: COMMON NORMALS: patient oriented x3 and moves all extremities Skin: COMMON NORMALS: no rashes or lesions noted GENERAL SKIN EXAM: no rashes or lesions noted Data : 10/01/20 04:25 10/01/20 04:25 Micro: Microbiology 09/30/20 01:06 Blood Culture - Preliminary Blood Gram Negative Rods 09/30/20 15:25 Gram Stain - Final Toe - #1 Wound Culture - Preliminary 09/30/20 14:12 Blood Culture - Preliminary Blood NEGATIVE TO DATE A&P Assessment and plan (1) Bacteremia: I was notified just now regarding again / bottles of repeat blood culture from 09/30+ for gram-negative cyrus. Pseudomonas in blood culture 09/27, 09/12 bottles, and now again in repeat culture 09/30, 09/13 bottles. Discussed with patient. We discussed additional assessment options going forward. We are changing the imaging strategy and for now canceling CT abdominal aorta with runoff and request CT chest abdomen pelvis to assess for any additional pockets of infection. He will today also have his right shoulder fluid drawn for assessment. As previously discussed with him likely portal of entry is the wound on his foot. However, discussed with him also that the repeat culture was done fairly soon after initiation of antibiotic this bacteria is susceptible to and with PICC still in place. We will repeat cultures again. However he is agreeable to also assess for additional pockets of infection as above. We will also assess ultrasound of right leg to assess for any pockets there. Collect a culture of the peritoneal fluid. He has had no symptoms of abdominal pain or discomfort, although I am getting a report of history of peritonitis. Has a PD catheter. Discussed with him, that in case of still persistent cultures without other pockets of infection identified we may also need to consider possibility of infected thrombus in the RIJ. PICC line has been DC'd 10/01 after 4 days of anticoagulation. Currently has been with line holiday without intravenous access since yesterday. Will need PIV for CT scan. Continue Levaquin PO. Status: Acute (2) DVT (deep venous thrombosis): Continue Lovenox. As above, in case of no additional focus of infection seen, and if bacteremia still persists, may need to consider possible infective thrombus. Continue to elevate right upper extremity above heart level. Avoid unnecessary infusions. Avoid IVs RUE if possible, although may be necessary for CT w contrast. Status: Acute Qualifiers: Chronicity: acute DVT location: non-extremity vein Qualified Code(s): I82.90 - Acute embolism and thrombosis of unspecified vein (3) Diabetic foot ulcer associated with type 2 diabetes mellitus: Hold off CTA aorta with runoff for now in favor of additional work-up as above. Ultrasound ISAIAH could not be obtained due to noncompressible arteries bilaterally 09/29. TBI also could not be obtained. Discussing with the ultrasonography tech color Doppler reportedly was attempted. Flow could not be reliably detected in the distal foot/toes. Discussed this with patient and his . As it appears his goal continues to be salvage of the forefoot, they are interested in pursuing CT angiogram of aorta with runoff to assess whether there may be significant peripheral artery disease and major vessels relief of which may allow for better perfusion lower down. They understand additional risks may be associated with the study. Discussed this with nephrology as well, and should be okay to proceed. Timing of the study in relation to dialysis not very important as he is having peritoneal dialysis. Continue Levaquin, doxycycline. Nonhealing ulcer with infection of right foot, osteomyelitis. So far s/p 6 weeks IV antibiotics with Rocephin. Now with complication with PICC line associated thrombus. Current admission also pseudomonal bacteremia. Declining amputation. Additional cultures obtained from the wound 09/30. Follow-up blood cultures. Continue wound dressing changes as per podiatry recommendation. Follow-up with wound care clinic once ready for discharge. Consider hyperbaric oxygen. Status: Acute Qualifiers: Diabetic foot ulcer location: toe Laterality: right Non-pressure ulcer stage: with necrosis of muscle Qualified Code(s): E11.621 - Type 2 diabetes mellitus with foot ulcer; L97.513 - Non-pressure chronic ulcer of other part of right foot with necrosis of muscle (4) Osteomyelitis: As above. Status: Acute Qualifiers: Osteomyelitis type: unspecified type Osteomyelitis location: foot Laterality: right Qualified Code(s): M86.9 - Osteomyelitis, unspecified (5) Effusion of glenohumeral joint of right upper extremity: Plan for joint fluid analysis today. Okay to continue Lovenox. History of massive rotator cuff tear, but currently also in the setting of persistent bacteremia. Status: Acute (6) ESRD (end stage renal disease): PD Diet changed to consistent carbohydrate with high-protein with limitation of dairy/low phosphorus per request. Has left side aVF. If left side access is needed would have to be an IJ PICC. Status: Acute (7) Atrial fibrillation: Continue metoprolol. Oral Cardizem. Continue cardiac monitoring. Status: Acute Qualifiers: Atrial fibrillation type: unspecified Qualified Code(s): I48.91 - Unspecified atrial fibrillation (8) Chronic disease anemia: 1 unit PRBC transfusion received 09/30. Monitor blood counts. Status: Acute (9) DM type 2 (diabetes mellitus, type 2): Sliding scale insulin. Diabetic diet. 5 units of Lantus. A1c 6.4. Status: Acute Attestations Medical Necessity Statement*: Continue admission for assessment and management of pseudomonal bacteremia, right shoulder effusion, in the setting of peritoneal dialysis, underlying diabetes, nonhealing right lower extremity wound and other comorbidities as above. Coding Level of Care Code Acute Media Marketing Director for [facility] Diagnoses Bacteremia R78.81 DVT (deep venous thrombosis) I82.90 Chronicity: acute DVT location: non-extremity vein Diabetic foot ulcer associated with type 2 diabetes mellitus E11.621; L97.513 Diabetic foot ulcer location: toe Laterality: right Non-pressure ulcer stage: with necrosis of muscle Osteomyelitis M86.9 Osteomyelitis type: unspecified type Osteomyelitis location: foot Laterality: right Effusion of glenohumeral joint of right upper extremity M25.411 ESRD (end stage renal disease) N18.6 Atrial fibrillation I48.91 Atrial fibrillation type: unspecified Chronic disease anemia D63.8 DM type 2 (diabetes mellitus, type 2) E11.9
--- NOTE | 2020-10-02 10:21 | P.PN_ITS ---
Subjective Subjective: Interval history: Patient seen bedside this morning for dressing change. Denies any acute events overnight. Patient denies any subjective nausea, vomiting, fever, chills, shortness of breath or chest pain. Vitals/I&O/Wt Last Vital Signs Temp 97.1 F L 10/02/20 07:21 Pulse 82 10/02/20 07:21 Resp 14 10/02/20 07:21 BP 135/105 10/02/20 08:16 Pulse Ox 95 10/02/20 07:21 10/01/20 10/02/20 10/02/20 22:59 06:59 14:59 Intake Total 2060 / 2540 360 / 360 Output Total 1700 / 1800 350 / 2150 Balance 360 / 740 -350 / 390 360 / 360 Weight last 48 hrs Weight 306 lb 12.8 oz Physical Exam Narrative: EXAM NARRATIVE: Patient is alert and oriented ?3 and in no acute distress. The following is a focused lower extremity exam. VASCULAR: Dorsalis pedis and posterior tibial arteries palpable +1 bilaterally. Capillary refill time less than 5 seconds to the distal hallux bilaterally. Calf is supple and nontender proximally and distally. Diminished hair growth at legs and feet bilaterally, no hair growth appreciated to the level to dorsal toes. +1 pitting edema to the lower extremities. Palpable +1 popliteal artery bilaterally. NEUROLOGICAL: Protective sensation intact 0/10 sites, tested with [place] Sergei monofilament to bilateral feet. DERMATOLOGICAL: Wound to the medial aspect of the right first metatarsal phalangeal joint measures wound measurements 4.8 cm x 3.0 cm x 0.4 cm, no purulent drainage, no periwound erythema, no malodor. No proximal lymphangitic streaking. Wound is exposed to bone able to visualize the proximal and distal phalanx of the right hallux. MUSCULOSKELETAL: Muscle strength is 5 out of 5 in all 3 cardinal planes to bilateral foot and ankle. Pes planus foot type bilaterally. Ankle joint dorsiflexion is to neutral bilaterally. Reducible hammertoe deformities 2 through 5 bilaterally. Mild hallux abductovalgus deformity bilaterally, hallux is not track bound. Data : 10/02/20 10:24 10/02/20 10:24 Micro: Microbiology 09/30/20 15:25 Gram Stain - Final Toe - #1 Wound Culture - Preliminary 09/30/20 01:06 Blood Culture - Preliminary Blood Gram Negative Rods 09/30/20 14:12 Blood Culture - Preliminary Blood NEGATIVE TO DATE A&P Assessment and plan (1) Diabetic peripheral neuropathy associated with type 2 diabetes mellitus: Status: Acute (2) ESRD (end stage renal disease): Status: Acute (3) Non-pressure chronic ulcer of other part of right foot with necrosis of bone: Status: Acute Mr. Bonilla is a 65-year-old male with osteomyelitis of the right hallux completing 6 weeks of IV antibiotics, 2 g of Rocephin infused daily via PICC line. Acute DVT of the right jugular, recommend infectious disease consultation as to discontinuing PICC line and potentially switching to oral antibiotics, appreciate infectious disease input in regards to this. Bone biopsy taken intraoperatively on 08/15/20 demonstrated no growth likely due to suppression as he was receiving empiric antibiotics prior to the procedure for several days. Wound bed culture taken 08/11/20 demonstrated strep G as well as staph aureus. Performed excisional debridement of nonviable epidermis, dermis, subcutaneous ti ssue down to and including fat layer, muscle and deep fascia of the right hallux wound, wound is clinically stable at this time without cellulitis, erythema or purulent drainage. -Performed dressing change with alginate AG and Maxorb. His will be bringing Iodosorb for tomorrow's dressing change. -Patient may ambulate as tolerated with postop shoe to the right foot. Elevate right foot while at rest -Repeat x-ray shows stable postoperative changes no further osteolysis. -ABIs unable to be obtained due to noncompressible vessels, waveforms shows normal amplitude with loss of dicrotic notch. Plans for CT angiogram of abdominal aorta with runoff. -Patient is adamant to continue limb salvage, from my perspective he has poor healing potential however his wound is stable and limb salvage could be pursued would require continued infection control, recommend close collaboration with infectious disease, appreciate Dr. Roxann wallace, currently on doxycycline twice daily 100 mg and levofloxacin 750 mg every other day. Blood culture positive for Pseudomonas during this hospitalization. Would also benefit from wound care referral and follow-up at wound care following discharge from this hospitalization, may be a candidate for hyperbarics. He refuses any level of amputation at this time. -I do not anticipate any surgical intervention during this hospitalization. Once again will require wound care referral on discharge for continued limb salvage. Attestations Medical Necessity Statement*: Continue admission for assessment and management of pseudomonal bacteremia, right shoulder effusion, in the setting of peritoneal dialysis, underlying diabetes, nonhealing right lower extremity wound and other comorbidities as above. Coding Level of Care Code Acute Aoc Director Combat Operations Officer for [facility] Fwd Diagnoses Diabetic peripheral neuropathy associated with type 2 diabetes mellitus E11.42 ESRD (end stage renal disease) N18.6 Non-pressure chronic ulcer of other part of right foot with necrosis of bone L97.514
[2020-10-02] MEDS: doxycycline 100 mg Tablet PO ×2 (10:25→20:46)
[2020-10-02] MEDS: enoxaparin 100 mg/mL Syringe SUBCUT (10:26)
[2020-10-02] MEDS: enoxaparin 40 mg/0.4 mL Syringe SUBCUT (10:26)
[2020-10-02 10:45] LABS: Basophils % 0.2 %; Eosinophils # 0.5 10^3/uL (0.0-0.8); Eosinophils % 4.8 %; Hematocrit 26.7 % (42.0-52.0); Hemoglobin 8.1 g/dL (11.7-16.6); Lymphocytes # 0.9 10^3/uL (0.8-4.8); Lymphocytes % 8.2 %; Mean Corpuscular HGB Conc 30.3 g/dL (30.0-36.0); Mean Corpuscular Volume 92.4 fL (80-94); Mean Platelet Volume 9.8 fL (7.4-10.4); Monocytes # 1.1 10^3/uL (0.2-0.9); Monocytes % 9.9 %; Neutrophils # 8.25 10^3/uL (1.8-7.7); Neutrophils % 75.5 %; Nucleated Red Blood Cells % 0 %; Platelet Count 236 10^3/cmm (130-400); Red Blood Count 2.89 10^6/uL (4.1-5.3); White Blood Count 10.9 10^3/uL (4.0-10.0)
[2020-10-02 11:04] LABS: Alanine Aminotransferase 30 U/L (0-41); Albumin Level 2.3 g/dL (3.5-5.2); Alkaline Phosphatase 100 IU/L (40-130); Anion Gap 13.9 (5-19); Aspartate Amino Transferase 24 U/L (0-40); Blood Urea Nitrogen 66 mg/dL (8-23); Calcium 9.3 mg/dL (8.5-10.5); Carbon Dioxide 25 mmol/L (22-29); Chloride 95 mmol/L (98-107); Globulin 3.6 g/dL (1.3-4.6); Glomerular Filtration Rate 9.1 mL/min (90-130); Glucose 231 mg/dL (65-115); Osmolality Calculated 296 mOsm/kg (285-295); Potassium 3.9 mmol/L (3.5-5.1); Sodium 130 mmol/L (136-145); Total Bilirubin 0.2 mg/dL (0.15-1.2); Total Protein 5.9 g/dL (6.6-8.7)
[2020-10-02 11:23] LABS: Glucose Point of Care 187 mg/dL (70-110)
--- NOTE | 2020-10-02 11:42 | PC.NURSE ---
wound dressing change by Doctor at bedside Dr. oWodall changed pt's dressing per patient. pls see his note.
--- NOTE | 2020-10-02 11:58 | PC.NURSE ---
Addendum entered by Charisse Gonzales RN 10/02/20 11:59: Dr. Barnes is informed that anesthesiologist has been called for iv access. Original Note: Pt has no IV peripheral IV access called anesthesiologist for helping me find an IV access for pt's IV contrast procedure as ordered by doctor.
--- NOTE | 2020-10-02 12:40 | ANES.PROC ---
Anesthesia Procedures Procedure/Date: 10/02/20 Procedure Narrative: IV START ANESTHESIA CONSULTED FOR IV START FOR CT SCAN. IV STARTED 20G RIGHT WRIST X1 ATTEMPT USING ASEPTIC TECHNIQUE
[2020-10-02] MEDS: iodixanol 320 mg/mL 100mL Btl IV (13:37)
--- NOTE | 2020-10-02 15:27 | P.CONIM_ITS ---
Providers/Reason For Consult Consulting Physican/Specialty*: Marco Antonio Mendez MD Reason for Consult*: Right shoulder effusion Attending Physician: Matt Barnes Primary Care Provider: Anmol Santiago History of Present Illness History of Present Illness Levi Bonilla is a 65 year old male with a 2-week history of pain in his right shoulder. He states he reached quite severe levels he was actually seen by his primary care physician and underwent an injection 2 weeks ago. He states by last Sunday the pain became more and more of a problem. The patient has had an unfortunate past 3 months. He apparently was diagnosed with coronavirus in July. He states thereafter he developed a wound over his the right foot and suspected osteomyelitis. He was treated with IV antibiotics after discharge from the hospital on August 16 of last year. Last week he began noting swe lling in his right arm. He states the pain in the shoulder has been a continuous issue. He was told 3 years ago that he had a massive rotator cuff tear that was likely not unreconstructable. He was offered a total shoulder arthroplasty but declined. He also has a history of a septic left knee treated with two-stage exchange arthroplasty on admission to the hospital he has been in atrial fibrillation that has been medically managed. He has now been anticoagulated on high dose Castro apparent. Meds/Allergies Home Medications and Allergies Home Medications Medication Instructions Recorded Confirmed Last Taken Type allopurinol 300 mg PO QAM 08/11/20 09/27/20 09/27/20 History amlodipine 10 mg PO BEDTIME 08/11/20 09/27/20 09/26/20 History atorvastatin 20 mg PO QAM 08/11/20 09/27/20 09/27/20 History citalopram 20 mg PO BEDTIME 08/11/20 09/27/20 09/26/20 History clonidine HCl 0.1 mg PO BID 08/11/20 09/27/20 09/27/20 History cyclobenzaprine 5 mg PO Q8H PRN 08/11/20 09/27/20 09/26/20 History ergocalciferol (vitamin D2) 1,250 mcg PO Q7D 08/11/20 09/27/20 08/11/20 History levothyroxine 150 mcg PO QAM 08/11/20 09/27/20 09/27/20 History losartan 100 mg PO BEDTIME 08/11/20 09/27/20 09/26/20 History megestrol 40 mg PO DAILY 08/11/20 09/27/20 08/11/20 History mupirocin calcium See Rx Instructions .ROUTE .COMPLEX 08/11/20 09/27/20 Unknown History pantoprazole 40 mg PO QAM 08/11/20 09/27/20 09/27/20 History paricalcitol [Zemplar] 1 mcg PO QAM 08/11/20 09/27/20 09/27/20 History peritoneal dialysis solution See Rx Instructions .ROUTE .COMPLEX 08/11/20 09/27/20 08/10/20 History torsemide 100 mg PO QAM 08/11/20 09/27/20 08/11/20 History tramadol 50 - 100 mg PO Q8H PRN 08/11/20 09/27/20 09/26/20 History ceftriaxone 1 g IV DAILY #42 ea 08/18/20 09/27/20 09/27/20 Rx glipizide 7.5 mg PO DAILY 30 Days #45 tab 08/18/20 09/27/20 09/27/20 Rx cadexomer iodine 0.9 % topical gel 40 g TOPICAL Q3D #40 g 09/07/20 09/27/20 09/27/20 Rx states uses everyday Post Operative darco shoe #1 ea 09/20/20 09/27/20 Unknown Rx Renal Factor Plus 1 tab PO QAM 09/27/20 09/27/20 09/27/20 History acetaminophen [Tylenol Extra 1,000 mg PO PRN 09/27/20 09/27/20 09/26/20 History Strength] aspirin [Aspir-81] 81 mg PO QPM 09/27/20 09/27/20 09/26/20 History metoprolol tartrate 50 mg PO BID 09/27/20 09/27/20 09/27/20 08:00 History polysaccharide iron complex 150 mg PO BID 09/27/20 09/27/20 09/27/20 History [Ferrex 150] sodium chloride 0.9 % See Rx Instructions .ROUTE .COMPLEX 09/27/20 09/27/20 Unknown History Allergies Allergy/AdvReac Type Severity Reaction Status Date / Time No Known Allergies Allergy Verified 09/27/20 20:05 Current Medications Current Medications Generic Name Dose Route Start Last Admin Trade Name Freq PRN Reason Stop Dose Admin Hydrocodone Bitart/Acetaminophen 1 tab 09/29/20 15:14 10/02/20 13:09 Hydrocodone-Acetaminophen 5-325 Mg Tablet PO 1 tab Q4H PRN Administration MODERATE PAIN Allopurinol 300 mg 09/28/20 09:00 10/02/20 05:52 Allopurinol 300 Mg Tablet PO 300 mg QAM MARIANELA Administration Atorvastatin Calcium 20 mg 09/28/20 09:00 10/02/20 05:53 Atorvastatin 40 Mg Tablet PO 20 mg QAM MARIANELA Administration Calcium Acetate 1,334 mg 09/28/20 18:00 10/02/20 11:31 Calcium Acetate 667 Mg Capsule PO 1,334 mg TIDWM MARIANELA Administration Citalopram Hydrobromide 20 mg 09/28/20 21:00 10/01/20 21:10 Citalopram 20 Mg Tablet PO 20 mg BEDTIME MARIANELA Administration Clonidine HCl 0.1 mg 09/28/20 09:00 10/02/20 08:16 Clonidine 0.1 Mg Tablet PO 0.1 mg BID MARIANELA Administration Diltiazem HCl 60 mg 09/28/20 09:25 10/02/20 14:29 Diltiazem 60 Mg Tablet PO 60 mg TID MARIANELA Administration Doxycycline Monohydrate 100 mg 09/30/20 11:15 10/02/20 10:25 Doxycycline 100 Mg Tablet PO 100 mg 1000,2100 MARIANELA Administration Protocol Enoxaparin Sodium 100 mg 09/30/20 11:00 10/02/20 10:26 Enoxaparin 100 Mg/Ml Syringe SUBCUT 100 mg Q24H MARIANELA Administration Enoxaparin Sodium 40 mg 09/30/20 11:00 10/02/20 10:26 Enoxaparin 40 Mg/0.4 Ml Syringe SUBCUT 40 mg Q24H MARIANELA Administration Ergocalciferol 50,000 unit 09/27/20 23:10 09/27/20 23:44 Ergocalciferol (Vitamin D2) 50,000 Unit Capsule PO 50,000 unit Q7D MARIANELA Administration Gentamicin Sulfate 1 applic 10/01/20 09:00 10/02/20 14:22 Gentamicin 0.1% Cream 15 Gm TOPICAL 1 applic DAILY MARIANELA Administration Hydralazine HCl 50 mg 09/29/20 15:00 10/02/20 14:29 Hydralazine 50 Mg Tablet PO 50 mg TID MARIANELA Administration Insulin Aspart 0 unit 09/30/20 12:00 10/02/20 11:32 Insulin Aspart 100 Unit/1 Ml SUBCUT 4 unit WM&BEDTIME MARIANELA Administration Protocol Insulin Glargine 5 unit 10/01/20 21:00 10/01/20 21:10 Insulin Glargine 100 Units/1 Ml SUBCUT 5 unit BEDTIME MARIANELA Administration Levofloxacin 750 mg 10/02/20 09:00 10/02/20 08:16 Levofloxacin 750 Mg Tablet PO 750 mg EVERY OTHER DAY MARIANELA Administration Protocol Levothyroxine Sodium 150 mcg 09/28/20 06:00 10/02/20 05:54 Levothyroxine 75 Mcg Tablet PO 150 mcg QAM MARIANELA Administration Losartan Potassium 100 mg 09/28/20 21:00 10/01/20 21:09 Losartan 50 Mg Tablet PO 100 mg BEDTIME MARIANELA Administration Metoprolol Tartrate 50 mg 09/28/20 09:00 10/02/20 08:16 Metoprolol Tartrate 50 Mg Tablet PO 50 mg BID MARIANELA Administration Non-Formulary Medication 1 mcg 09/28/20 06:00 10/02/20 05:54 Paricalcitol [Zemplar] PO Not Given QAM [facility] Non-Formulary Medication 1 tab 09/28/20 06:00 10/02/20 05:54 Renal Factor Plus PO Not Given QAM [facility] Non-Formulary 1 each 09/29/20 15:00 10/02/20 14:24 Medication (Iodosorb TOPICAL Not Given (Cadexomer Iodine DAILY MARIANELA Gel)) Pantoprazole Sodium 40 mg 09/28/20 09:00 10/02/20 05:[address] 40 Mg Tablet PO 40 mg QAM MARIANELA Administration Peritoneal Dialysis Solution 2,000 ml 10/02/20 14:00 10/02/20 14:21 Dianeal Low Ca W/2.5% Dex 2,000 Ml Bag INTRAPERIT 2,000 ml 5XD MARIANELA Administration Polyethylene Glycol 17 gm 09/28/20 14:30 10/02/20 08:19 Polyethylene Glycol 3350 Pkt 17 Gm PO Not Given BID MARIANELA Polysaccharide Iron Complex 150 mg 09/28/20 09:00 09/30/20 08:54 Iron Polysaccharide Complex 150 Mg Capsule PO 150 mg BID MARIANELA Administration PFSH Acute PFSH: Medical History Anemia Atrial fibrillation with RVR Atrial fibrillation, chronic Diabetes Diabetic neuropathy Elevated troponin End stage renal disease -on peritoneal dialysis Gout Hypertension Hypothyroidism Morbid obesity Surgical History Presence of Watchman left atrial appendage closure device S/P PICC central line placement aug 16 2020 Family History Other Family history non-contributory Social History Alcohol intake: never Substance/Drug Use: never Housing: House Vitals/I&O/Wt Last Vital Signs Temp 98.2 F 10/02/20 14:55 Pulse 67 10/02/20 14:55 Resp 15 10/02/20 10:34 BP 181/86 10/02/20 14:55 Pulse Ox 97 10/02/20 14:55 10/02/20 10/02/20 10/02/20 06:59 14:59 22:59 Intake Total 600 / 600 Output Total 350 / 2150 250 / 250 Balance -350 / 390 350 / 350 Weight last 48 hrs Weight 306 lb 12.8 oz Physical Exam Narrative: EXAM NARRATIVE: The patient is a pleasant overweight elderly man in no obvious distress. He answers questions appropriately and does not seem confused. He has no erythema over the shoulder but has a large effusion visible about his a subacromial space I can only flex him to 90 degrees and axial rotated 30 degrees before I am limited by pain He has no distal neurovascular deficits I can appreciate There is no swelling about the left shoulder. He has scars over both knees consistent with his total knee arthroplasties but I can appreciate no obvious swelling. He has right foot reveals a ID wound with a mucoid base over the medial aspect of the big toe Data Micro: Micro: Microbiology 09/27/20 00:33 Blood Culture - Pr eliminary Blood Corynebacterium species 09/27/20 20:22 Blood Culture - Pr eliminary Blood Pseudomonas aer uginosa 10/02/20 10:30 Blood Culture - Pr eliminary Blood SPECIMEN COLLEC JAY JAY 10/02/20 10:24 Blood Culture - Pr eliminary Blood SPECIMEN COLLEC JAY JAY 09/30/20 15:25 Gram Stain - Final Toe - #1 Wound Culture - Pr eliminary 09/30/20 01:06 Blood Culture - Pr eliminary Blood Gram Negative R ods 09/30/20 14:12 Blood Culture - Pr eliminary Blood NEGATIVE TO EMILY E Imaging^: MRI: My impression: I have reviewed an MRI of the right shoulder dated 09/30/2020. The patient has a massive tear of his rotator cuff. He has a very large effusion. I can see no destructive processes of bone. Radiologist's impression: Radiologist interpretation concurs A&P Assessment and plan (1) Effusion of glenohumeral joint of right upper extremity: The patient is a very large effusion and certainly sepsis would be a possibility particularly with a recent history of osteomyelitis. I discussed aspiration as a diagnostic tool with the patient and he agreed. The patient's right shoulder was prepped anteriorly with Betadine. An 18-gauge needle was introduced and approximately 4 cc of a purulent fluid aspirated. Fluid was sent for routine and anaerobic cultures. CPT 47465 I discussed treatment of a septic arthritis with the patient. I told him that I would recommend irrigation debridement to decrease the burden of infection and remove any dysvascular necrotic tissue. This could be done arthroscopically. The patient certainly has a multiple medical comorbidities. He is on high-dose Lovenox and this will need to be discontinued. I discussed the possible need for further procedures. I discussed anesthetic risk. I discussed risk of bleeding with his anticoagulation. I will discuss with medicine optimal timing for surgery. Status: Acute Coding Level of Care Code Acute Garment Examiner for [facility] Diagnoses Effusion of glenohumeral joint of right upper extremity M25.411
[2020-10-02 17:09] LABS: Glucose Point of Care 191 mg/dL (70-110)
--- NOTE | 2020-10-02 19:49 | PC.NURSE ---
End of shift report Pt is alert,awake, oriented and conversant. His right forearm swelling has improved. Still has tenderness,swelling and pain upon movement on his right shoulder. AV fistula on left upper arm is patent. Dressing rechanged to right foot after he took a shower and got it wet. He is tolerating the CAPPD exchanges without any concerns of abdominal pain. Gentamycin ointment applied to right lower quadrant PD area as ordered. Hydrocodone given one time this shift for right arm pain. Hand-off report to next shift nurse.
[2020-10-02 20:14] LABS: Glucose Point of Care 262 mg/dL (70-110)
[2020-10-02] MEDS: citalopram 20 mg Tablet PO (20:46)
[2020-10-02] MEDS: losartan 50 mg Tablet 100 MG PO (20:46)
[2020-10-02] MEDS: insulin glargine 100 units/1 mL 10 UNIT SUBCUT (20:49)
[2020-10-03] VITALS (12 sets, daily range): BP systolic 120–154; BP diastolic 63–87; PULSE 70–109; RESP 17–24; TEMP 36.4–36.9; O2SAT 93–97
[2020-10-03 00:30] LABS: Mononuclear #, Pertinoneal Fl 0.073 10^3/uL; Polynuclear # Cells, Perit 0.037 10^3/uL
[2020-10-03 00:31] LABS: Appearance, Peritoneal Fluid Clear (Clear); Color, Peritoneal Fluid Colorless (Pale Yellow)
[2020-10-03 00:32] LABS: RBC Pertioneal Fluid 0 10^3/uL; WBC Peritoneal Fluid 110 /uL
[2020-10-03] MEDS: HYDROcodone-acetaminophen 5-325 mg Tablet 1 TAB PO ×3 (02:55→23:13)
[2020-10-03 03:58] LABS: Basophils % 0.2 %; Eosinophils # 0.7 10^3/uL (0.0-0.8); Hematocrit 28.4 % (42.0-52.0); Hemoglobin 8.7 g/dL (11.7-16.6); Lymphocytes # 1.1 10^3/uL (0.8-4.8); Lymphocytes % 10.2 %; Mean Corpuscular HGB Conc 30.6 g/dL (30.0-36.0); Mean Corpuscular Hemoglobin 27.7 pg (28.0-34.0); Mean Corpuscular Volume 90.4 fL (80-94); Mean Platelet Volume 11.5 fL (7.4-10.4); Monocytes # 1.1 10^3/uL (0.2-0.9); Monocytes % 10.4 %; Neutrophils # 7.77 10^3/uL (1.8-7.7); Neutrophils % 71.3 %; Nucleated Red Blood Cells % 0 %; Platelet Count 157 10^3/cmm (130-400); Red Blood Count 3.14 10^6/uL (4.1-5.3); Red Cell Distribution Width 17.1 % (12.1-15.1); White Blood Count 10.9 10^3/uL (4.0-10.0)
[2020-10-03] MEDS: pantoprazole DR 40 mg Tablet PO (05:49)
[2020-10-03] MEDS: levothyroxine 75 mcg Tablet 150 MCG PO (05:49)
[2020-10-03] MEDS: allopurinol 300 mg Tablet PO (05:49)
[2020-10-03] MEDS: atorvastatin 40 mg Tablet 20 MG PO (05:49)
[2020-10-03] MEDS: Dianeal low Ca w/2.5% dex 2,000 mL Bag 2000 ML INTRAPERIT ×5 (05:51→23:01)
[2020-10-03 06:11] LABS: Alanine Aminotransferase 27 U/L (0-41); Albumin Level 2.5 g/dL (3.5-5.2); Alkaline Phosphatase 104 IU/L (40-130); Anion Gap 15.2 (5-19); Aspartate Amino Transferase 21 U/L (0-40); Blood Urea Nitrogen 66 mg/dL (8-23); Calcium 9.2 mg/dL (8.5-10.5); Carbon Dioxide 25 mmol/L (22-29); Chloride 97 mmol/L (98-107); Glomerular Filtration Rate 8.9 mL/min (90-130); Glucose 177 mg/dL (65-115); Osmolality Calculated 299 mOsm/kg (285-295); Potassium 4.2 mmol/L (3.5-5.1); Sodium 133 mmol/L (136-145); Total Bilirubin 0.2 mg/dL (0.15-1.2)
[2020-10-03 07:14] LABS: Glucose Point of Care 208 mg/dL (70-110)
--- NOTE | 2020-10-03 07:35 | PM.PN ---
Subjective Subjective: Interval history: Patient seen bedside this morning for dressing change. Denies any acute events overnight. Patient denies any subjective nausea, vomiting, fever, chills, shortness of breath or chest pain. Vitals/I&O/Wt Last Vital Signs Temp 98.1 F 10/03/20 04:00 Pulse 90 10/03/20 06:00 Resp 17 10/03/20 04:00 BP 120/76 10/03/20 04:00 Pulse Ox 95 10/03/20 04:00 10/02/20 10/03/20 10/03/20 22:59 06:59 14:59 Intake Total 4236 / 6836 1999 / 8836 Output Total 2200 / 2450 2850 / 5300 Balance 2036 / 4386 -850 / 3536 Physical Exam Narrative: EXAM NARRATIVE: Patient is alert and oriented ?3 and in no acute distress. The following is a focused lower extremity exam. VASCULAR: Dorsalis pedis and posterior tibial arteries palpable +1 bilaterally. Capillary refill time less than 5 seconds to the distal hallux bilaterally. Calf is supple and nontender proximally and distally. Diminished hair growth at legs and feet bilaterally, no hair growth appreciated to the level to dorsal toes. +1 pitting edema to the lower extremities. Palpable +1 popliteal artery bilaterally. NEUROLOGICAL: Protective sensation intact 0/10 sites, tested with [place] Sergei monofilament to bilateral feet. DERMATOLOGICAL: Wound to the medial aspect of the right first metatarsal phalangeal joint measures wound measurements 4.8 cm x 3.0 cm x 0.4 cm, no purulent drainage, no periwound erythema, no malodor. No proximal lymphangitic streaking. Wound is exposed to bone able to visualize the proximal and distal phalanx of the right hallux. Hyper granulation at the proximal portion of the wound. MUSCULOSKELETAL: Muscle strength is 5 out of 5 in all 3 cardinal planes to bilateral foot and ankle. Pes planus foot type bilaterally. Ankle joint dorsiflexion is to neutral bilaterally. Reducible hammertoe deformities 2 through 5 bilaterally. Mild hallux abductovalgus deformity bilaterally, hallux is not track bound. Data : 10/03/20 03:23 10/03/20 05:36 Micro: Microbiology 10/02/20 15:00 Gram Stain - Final Peritoneal Fluid 09/27/20 00:33 Blood Culture - Preliminary Blood Corynebacterium species 09/27/20 20:22 Blood Culture - Preliminary Blood Pseudomonas aeruginosa 10/02/20 10:30 Blood Culture - Preliminary Blood SPECIMEN COLLECTED 10/02/20 10:24 Blood Culture - Preliminary Blood SPECIMEN COLLECTED 09/30/20 15:25 Gram Stain - Final Toe - #1 Wound Culture - Preliminary 09/30/20 01:06 Blood Culture - Preliminary Blood Gram Negative Rods A&P Assessment and plan (1) Diabetic peripheral neuropathy associated with type 2 diabetes mellitus: Status: Acute (2) ESRD (end stage renal disease): Status: Acute (3) Non-pressure chronic ulcer of other part of right foot with necrosis of bone: Status: Acute Mr. Bonilla is a 65-year-old male with osteomyelitis of the right hallux completing 6 weeks of IV antibiotics, 2 g of Rocephin infused daily via PICC line. Acute DVT of the right jugular, recommend infectious disease consultation as to discontinuing PICC line and potentially switching to oral antibiotics, appreciate infectious disease input in regards to this. Bone biopsy taken intraoperatively on 08/15/20 demonstrated no growth likely due to suppression as he was receiving empiric antibiotics prior to the procedure for several days. Wound bed culture taken 08/11/20 demonstrated strep G as well as staph aureus. Performed excisional debridement of nonviable epidermis, dermis, subcutaneous tissue down to and including fat layer, muscle and deep fascia of the right hallux wound, wound is clinically stable at this time without cellulitis, erythema or purulent drainage. -Performed dressing change, hypergranulation tissue sharply excised with dermal curette, hemostasis achieved via manual pressure. -Patient may ambulate as tolerated with postop shoe to the right foot. Elevate right foot while at rest -Repeat x-ray shows stable postoperative changes no further osteolysis. -ABIs unable to be obtained due to noncompressible vessels, waveforms shows normal amplitude with loss of dicrotic notch. Plans for CT angiogram of abdominal aorta with runoff. -Patient is adamant to continue limb salvage, from my perspective he has poor healing potential however his wound is stable and limb salvage could be pursued would require continued infection control, recommend close collaboration with infectious disease, appreciate Dr. Roxann wallace, currently on doxycycline twice daily 100 mg and levofloxacin 750 mg every other day. Blood culture positive for Pseudomonas during this hospitalization. -I did have a discussion with the patient in regards to considering right hallux amputation, will await CT angio to further evaluate vascular status. Attestations Medical Necessity Statement*: Continue admission for assessment and management of pseudomonal bacteremia, right shoulder effusion, in the setting of peritoneal dialysis, underlying diabetes, nonhealing right lower extremity wound and other comorbidities as above. Coding Level of Care Code Acute Financial Systems Administrator for [facility] Fwd Diagnoses Diabetic peripheral neuropathy associated with type 2 diabetes mellitus E11.42 ESRD (end stage renal disease) N18.6 Non-pressure chronic ulcer of other part of right foot with necrosis of bone L97.514
[2020-10-03] MEDS: calcium acetate 667 mg Capsule 1334 MG PO ×3 (08:00→17:03)
[2020-10-03] MEDS: dilTIAZem 60 mg Tablet PO ×3 (08:00→21:59)
[2020-10-03] MEDS: metoprolol tartrate 50 mg Tablet PO ×2 (08:00→17:03)
[2020-10-03] MEDS: cloNIDine 0.1 mg Tablet PO ×2 (08:01→17:03)
[2020-10-03] MEDS: hyDRALAzine 50 mg Tablet PO ×3 (08:01→21:58)
[2020-10-03] MEDS: doxycycline 100 mg Tablet PO ×2 (09:37→21:58)
--- NOTE | 2020-10-03 09:44 | PM.PN ---
Subjective Subjective: Interval history: no complaints. Medications: Reviewed: Yes Vitals/I&O/Wt Last Vital Signs Temp 98.1 F 10/03/20 04:00 Pulse 89 10/03/20 08:00 Resp 17 10/03/20 04:00 BP 147/81 10/03/20 08:01 Pulse Ox 95 10/03/20 04:00 10/02/20 10/03/20 10/03/20 22:59 06:59 14:59 Intake Total 4236 / 6836 1999 / 8835 354 / 354 Output Total 4000 / 5850 2850 / 8700 500 / 500 Balance 236 / 986 -850 / 136 -146 / -146 Physical Exam Const: COMMON NORMALS: no acute distress GENERAL APPEARANCE: cooperative Extremity: GENERAL: Yes edema Data : 10/03/20 03:23 10/03/20 05:36 Other Labs: peritoneal fluid WBC 110, clear Micro: Microbiology 10/02/20 15:44 Body Fluid Culture - Preliminary Synovial Fluid 10/02/20 15:00 Gram Stain - Final Peritoneal Fluid Body Fluid Culture - Preliminary 09/30/20 15:25 Gram Stain - Final Toe - #1 Wound Culture - Final 09/27/20 00:33 Blood Culture - Preliminary Blood Corynebacterium species 09/27/20 20:22 Blood Culture - Preliminary Blood Pseudomonas aeruginosa 10/02/20 10:30 Blood Culture - Preliminary Blood SPECIMEN COLLECTED 10/02/20 10:24 Blood Culture - Preliminary Blood SPECIMEN COLLECTED 09/30/20 01:06 Blood Culture - Preliminary Blood Gram Negative Rods A&P Additional A&P Information 1. ESRD on peritoneal dialysis, AVF LUE 2. DVT (catheter related) 3. Hypertension, DM, PVD 4. Anemia, s/p transfusion 1u PRBC, procrit 09/30/20, Hb improving 5. Hyponatremia, stable, with edema, will increase PD exchanges to 5x daily, torsemide resumed 6. Pseudomonas bacteremia, BC 09/30 growing GNR. Ulcer, OM right foot, septic arthritis right shoulder. No evidence of peritonitis Recommend: Continue current PD exchanges 5x daily, 2.5%. Restrict water. Protein supplement. No BPs, IVs, blood draws left arm. If needed can place left IJ or EJ catheter Attestations Medical Necessity Statement*: per primary service Time Spent in Patient Care: 16 - 35 minutes Coding Level of Care Code Acute Fisheries Management Biologist for Breanna Aguero
--- NOTE | 2020-10-03 10:04 | P.PN_ITS ---
Subjective Subjective: Interval history: Shoulder exam is somewhat better today. Overall he is doing all right he states, but has noticed he has been having more swelling in his lower extremities for which at home he takes torsemide. He has not been having any abdominal pain. Constipation has resolved. We discussed regarding blood cultures again, and additional results with current bacterium noted on blood culture from 09/27 in addition to Pseudomonas. Repeat blood culture with gram-negative rods from 09/30 still pending. Other blood cultures so far negative, pending. Discussed regarding shoulder procedure tomorrow, and discontinuation of Lovenox in the setting of peritoneal dialysis, as well as due to elevated risk of VTE short-term bridging with heparin drip until midnight tonight as discussed with orthopedics for timing of surgery. Vitals/I&O/Wt Last Vital Signs Temp 98.1 F 10/03/20 04:00 Pulse 89 10/03/20 08:00 Resp 17 10/03/20 04:00 BP 147/81 10/03/20 08:01 Pulse Ox 95 10/03/20 04:00 10/02/20 10/03/20 10/03/20 22:59 06:59 14:59 Intake Total 4236 / 6836 1999 / 36 354 / 354 Output Total 4000 / 5850 2850 / 8700 500 / 500 Balance 236 / 986 -850 / 136 -146 / -146 Physical Exam Const: COMMON NORMALS: no acute distress, patient oriented x3 and alert GENERAL APPEARANCE: cooperative and comfortable ORIENTATION/CONSCIOUSNESS: Yes awake HENMT: COMMON NORMALS: oropharynx normal Neck/C-Spine: COMMON NORMALS: no JVD Resp: COMMON NORMALS: normal respiratory effort and clear to auscultation bilaterally AUSCULTATION: clear to auscultation bilaterally Cardio: COMMON NORMALS: no JVD, regular rhythm, S1 normal heart sound present, S2 normal heart sound present and No murmurs present (Cardio) RHYTHM: regular rhythm HEART SOUNDS: S1 normal heart sound present and S2 normal heart sound present GI: COMMON NORMALS: Normal to inspection, nondistended, normoactive bowel sounds present, Soft to palpation and non-tender PALPATION: Yes Soft to palp ation Extremity: COMMON NORMALS: no joint enlargement GENERAL: Yes edema (2-3+ bilateral lower extremity edema) OTHER: Swelling of RUE decreasing. R shoulde r swelling. He is regained quite a bit of mobility especially in the distal arm. Only mild edema currently. No expansion of the wound of R hallux. No drainage. Neuro: COMMON NORMALS: patient oriented x3 and moves all extremities SENSORIUM/ORIENTATION: Yes alert Skin: COMMON NORMALS: no rashes or lesions noted GENERAL SKIN EXAM: no rashes or lesions noted Data : 10/03/20 03:23 10/03/20 05:36 Micro: Microbiology 10/02/20 15:44 Body Fluid Culture - Preliminary Synovial Fluid 10/02/20 15:00 Gram Stain - Final Peritoneal Fluid Body Fluid Culture - Preliminary 09/30/20 15:25 Gram Stain - Final Toe - #1 Wound Culture - Final 09/27/20 00:33 Blood Culture - Preliminary Blood Corynebacterium species 09/27/20 20:22 Blood Culture - Preliminary Blood Pseudomonas aeruginosa 10/02/20 10:30 Blood Culture - Preliminary Blood SPECIMEN COLLECTED 10/02/20 10:24 Blood Culture - Preliminary Blood SPECIMEN COLLECTED 09/30/20 01:06 Blood Culture - Preliminary Blood Gram Negative Rods A&P Assessment and plan (1) Bacteremia: Discussed with him regarding additional results of current bacterium species noted and blood culture from 09/27, in addition to Pseudomonas. Still pending gram-negative rods in repeat culture 09/30. We discussed regarding not entirely clear significance of the current bacterium species, which may be contamination of the sample at the time of drawing of the blood culture, as opposed to true bacteremia. We will follow up subsequent blood cultures. Continue antibiotics at this time. Shoulder joint fluid culture pending. We discussed regarding septic arthritis of the right shoulder as feared. He will have a washout of the right shoulder which he is preparing for tomorrow to give adequate time to safely wean off Lovenox per discussion with nephrology with a window about 48 hours from previous dose. As he is at elevated risk of VTE we also discussed and he is agreeable with short bridging course with heparin until midnight tonight in anticipation of the shoulder procedure tomorrow as discussed with orthopedics. Contrast CT chest abdomen pelvis 10/02 without suggestion of additional pockets of infection. Noted tiny right pleural effusion. Coronary calcification. Soft tissue ultrasound of right leg 10/02 without fluid collections. Additional pending test includes CT angiogram of aorta with runoff to arteries in the right leg to assess for any significant peripheral artery disease upstream of his right foot repair of which may help improve circulation lower down. As previously discussed with him and his spouse toe brachial pressures could not be assessed, and color Doppler of the distal foot and toes could not picker/puller any reliable signal. Peritoneal fluid with negative Gram stain, no growth on culture so far. Please follow-up. There are 36 PMNs. He has no abdominal pain. At this time suspicion for peritonitis is low. Discussed with nephrology. We will continue to monitor for any changes in symptoms or appearance of dialysate. Of note has reported history of peritonitis in the past. I again encouraged him to consider amputation at distal lower extremity to eliminate the persistent portal of entry for additional pathogens and reduce n eed for additional prolonged therapies thus reducing his exposure to associated potential complications. He states that he has considered amputation and still currently declines and wants to continue current treatment. PICC line associated versus septic thrombophlebitis of right internal jugular v ein. Continue Levaquin, doxycycline PO. PICC line has been DC'd 10/01 after 4 days of anticoagulation. Subsequently with line holiday with peripheral IV replaced 10/[address] chest abdomen pelvis with contrast. Status: Acute (2) DVT (deep venous thrombosis): Lovenox discontinued to allow for shoulder procedure. Temporary heparin bridging tonight until midnight. Continue anticoagulation for 3 months after removal of the PICC line. As above, in case of no additional focus of infection seen, and if bacteremia still persists, possible infected thrombus of the right internal jugular vein may need to be considered. Elevate right upper extremity above heart level. Avoid nonessential infusions. Status: Acute Qualifiers: Chronicity: acute DVT location: non-extremity vein Qualified Code(s): I82.90 - Acute embolism and thrombosis of unspecified vein (3) Diabetic foot ulcer associated with type 2 diabetes mellitus: CTA aorta with runoff for now postponed as he just underwent a contrast study of chest abdomen pelvis, as well as pending additional assessment treatment of bacteremia which may delay safe instrumentation of peripheral arteries. We will tentatively plan CTA for tomorrow afternoon. As discussed with him and his spouse, ultrasound ISAIAH could not be obtained due to noncompressible arteries bilaterally 09/29. TBI also could not be obtained. Discussing with the ultrasonography tech color Doppler reportedly was attempted. There is no motting or cyanosis of feet/toes, however, flow could not be reliably detected in the distal foot/toes. I have recommended amputation on several occasions, however, he still declines. Continue Levaquin, doxycycline. Nonhealing ulcer with infection of right foot, osteomyelitis. So far s/p 6 weeks IV antibiotics with Rocephin. Now with complication with PICC line associated thrombus. Current admission also pseudomonal bacteremia. Possible corynebacterium. Septic arthritis of the right shoulder. Additional cultures obtained from the wound 09/30. Follow-up blood cultures. Continue wound dressing changes as per podiatry recommendation. Follow-up with wound care clinic once ready for discharge. Consider hyperbaric oxygen. Status: Acute Qualifiers: Diabetic foot ulcer location: toe Laterality: right Non-pressure ulcer stage: with necrosis of muscle Qualified Code(s): E11.621 - Type 2 diabetes mellitus with foot ulcer; L97.513 - Non-pressure chronic ulcer of other part of right foot with necrosis of muscle (4) Osteomyelitis: As above. Status: Acute Qualifiers: Osteomyelitis type: unspecified type Osteomyelitis location: foot Laterality: right Qualified Code(s): M86.9 - Osteomyelitis, unspecified (5) Effusion of glenohumeral joint of right upper extremity: Plan for joint fluid analysis today. Okay to continue Lovenox. History of massive rotator cuff tear, but currently also in the setting of pers istent bacteremia. Status: Acute (6) ESRD (end stage renal disease): PD increase due to some worsening edema. Will also resume his torsemide. Diet changed to consistent carbohydrate with high-protein with limitation of dairy/low phosphorus per request. Has left side aVF. If left side access is needed would have to be an IJ PICC. Status: Acute (7) Atrial fibrillation: Continue metoprolol. Oral Cardizem. Continue cardiac monitoring. Status: Acute Qualifiers: Atrial fibrillation type: unspecified Qualified Code(s): I48.91 - Unspecified atrial fibrillation (8) Chronic disease anemia: 1 unit PRBC transfusion received 09/30. Monitor blood counts. Status: Acute (9) DM type 2 (diabetes mellitus, type 2): Sliding scale insulin. Diabetic diet. Lantus was increased to 10 units last night, will increase to 12 tonight. A1c 6.4. Status: Acute Attestations Medical Necessity Statement*: Continue admission for assessment and management of bacteremia, VTE, infection of the right shoulder, osteomyelitis and non- healing wound of R distal foot, in the setting of ESRD, diabetes, as well as additional comorbidities as above. 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 [employer] Diagnoses Bacteremia R78.81 DVT (deep venous thrombosis) I82.90 Chronicity: acute DVT location: non-extremity vein Diabetic foot ulcer associated with type 2 diabetes mellitus E11.621; L97.513 Diabetic foot ulcer location: toe Laterality: right Non-pressure ulcer stage: with necrosis of muscle Osteomyelitis M86.9 Osteomyelitis type: unspecified type Osteomyelitis location: foot Laterality: right Effusion of glenohumeral joint of right upper extremity M25.411 ESRD (end stage renal disease) N18.6 Atrial fibrillation I48.91 Atrial fibrillation type: unspecified Chronic disease anemia D63.8 DM type 2 (diabetes mellitus, type 2) E11.9
--- NOTE | 2020-10-03 11:00 | PC.NURSE ---
Heparin Drip Pt weight is 143 kg bedscale. Maximum body weight-based for heparin protocol is [address] Barnes if okay to start initial rate maintenance and initial loading bolus per the maximum weight of 140 kg. Telephone order readback to start pt base on the maximum weight kg per protocol. verified with [employer].
[2020-10-03 11:17] LABS: Glucose Point of Care 276 mg/dL (70-110)
[2020-10-03] MEDS: heparin 5,000 unit/mL INJ 1 mL IV (11:18)
[2020-10-03] MEDS: heparin drip 25,000 UNIT/500 ML PREMIX 36 UNIT IV (11:19)
[2020-10-03] MEDS: NON-FORMULARY MEDICATION 100 EACH PO (12:23)
[2020-10-03 17:00] LABS: Glucose Point of Care 249 mg/dL (70-110)
[2020-10-03 18:25] LABS: Partial Thromboplastin Time 60.6 SECONDS (23.9-36.7)
--- NOTE | 2020-10-03 20:10 | PC.NURSE ---
Hand-off report to night nurse Informed night nurse regarding an order to stop Heparin drip at midnight as ordered prior to procedure in the morning.
[2020-10-03 21:28] LABS: Glucose Point of Care 232 mg/dL (70-110)
[2020-10-03] MEDS: citalopram 20 mg Tablet PO (21:58)
[2020-10-03] MEDS: losartan 50 mg Tablet 100 MG PO (21:58)
[2020-10-03] MEDS: insulin glargine 100 units/1 mL 12 UNIT SUBCUT (22:00)
[2020-10-04] VITALS (18 sets, daily range): BP systolic 97–162; BP diastolic 57–98; PULSE 59–114; RESP 9–22; TEMP 36.4–36.8; O2SAT 94–99
[2020-10-04 03:54] LABS: Basophils % 0.2 %; Eosinophils # 0.8 10^3/uL (0.0-0.8); Eosinophils % 7.6 %; Hematocrit 26.6 % (42.0-52.0); Hemoglobin 7.9 g/dL (11.7-16.6); Lymphocytes # 1.2 10^3/uL (0.8-4.8); Lymphocytes % 11.1 %; Mean Corpuscular HGB Conc 29.7 g/dL (30.0-36.0); Mean Corpuscular Hemoglobin 27.7 pg (28.0-34.0); Mean Corpuscular Volume 93.3 fL (80-94); Mean Platelet Volume 10.2 fL (7.4-10.4); Monocytes # 1.1 10^3/uL (0.2-0.9); Neutrophils # 7.76 10^3/uL (1.8-7.7); Neutrophils % 69.7 %; Nucleated Red Blood Cells % 0 %; Platelet Count 233 10^3/cmm (130-400); Red Blood Count 2.85 10^6/uL (4.1-5.3); Red Cell Distribution Width 16.9 % (12.1-15.1); White Blood Count 11.1 10^3/uL (4.0-10.0)
[2020-10-04 04:12] LABS: Alanine Aminotransferase 25 U/L (0-41); Albumin Level 2.2 g/dL (3.5-5.2); Alkaline Phosphatase 103 IU/L (40-130); Anion Gap 15.2 (5-19); Aspartate Amino Transferase 23 U/L (0-40); Blood Urea Nitrogen 63 mg/dL (8-23); Carbon Dioxide 26 mmol/L (22-29); Chloride 98 mmol/L (98-107); Glomerular Filtration Rate 8.6 mL/min (90-130); Glucose 180 mg/dL (65-115); Osmolality Calculated 303 mOsm/kg (285-295); Potassium 4.2 mmol/L (3.5-5.1); Sodium 135 mmol/L (136-145); Total Bilirubin 0.2 mg/dL (0.15-1.2)
[2020-10-04] MEDS: pantoprazole DR 40 mg Tablet PO (05:17)
[2020-10-04] MEDS: levothyroxine 75 mcg Tablet 150 MCG PO (05:17)
[2020-10-04] MEDS: atorvastatin 40 mg Tablet 20 MG PO (05:17)
[2020-10-04] MEDS: Dianeal low Ca w/2.5% dex 2,000 mL Bag 2000 ML INTRAPERIT ×4 (05:17→22:04)
[2020-10-04] MEDS: NON-FORMULARY MEDICATION 100 EACH PO (05:18)
[2020-10-04] MEDS: allopurinol 300 mg Tablet PO (05:18)
[2020-10-04 06:58] LABS: Glucose Point of Care 201 mg/dL (70-110)
--- NOTE | 2020-10-04 09:29 | DCPLANNER ---
IMM completed on 10/04/20 @ 5504. Copy of rights given to pt.
[2020-10-04] MEDS: metoprolol tartrate 50 mg Tablet PO ×2 (10:55→17:03)
[2020-10-04] MEDS: dilTIAZem 60 mg Tablet PO ×2 (10:56→20:32)
[2020-10-04] MEDS: levoFLOXacin 750 mg Tablet PO (10:57)
[2020-10-04] MEDS: hyDRALAzine 50 mg Tablet PO ×2 (10:57→20:33)
[2020-10-04] MEDS: doxycycline 100 mg Tablet PO ×2 (11:14→20:32)
[2020-10-04 11:33] LABS: Glucose Point of Care 169 mg/dL (70-110)
--- NOTE | 2020-10-04 11:58 | PM.PN ---
Subjective Subjective: Interval history: Mr. Bonilla is doing well today. Discomfort still remains in his right shoulder. Peritoneal dialysis is going well with painless and and outflow. The effluent looks clear. No blood or cloudiness to it. Still has significant lower extremity edema, breathing well without orthopnea/PND. No uremic symptoms. To go to the operating room quite soon. Medications: Reviewed: Yes Vitals/I&O/Wt Last Vital Signs Temp 98.3 F 10/04/20 10:53 Pulse 93 10/04/20 10:53 Resp 14 10/04/20 10:53 BP 148/83 10/04/20 10:53 Pulse Ox 95 10/04/20 10:53 10/03/20 10/04/20 10/04/20 22:59 06:59 14:59 Intake Total 2263.4 / 6977.4 4606 / 19707.4 Output Total 2550 / 9270 5350 / 80464 Balance -286.6 / -2292.6 -744 / -3036.6 Weight last 48 hrs Weight 138.346 kg Physical Exam Narrative: EXAM NARRATIVE: Constitutional: Awake, comfortable HEENT: Wet mucosa, no jvp, non icteric Lungs: Bilaterally clear without discernible wheeze, rales in all lung zones CVS: S1 S2, no murmurs Abdo: Soft, BS ok Ext 4: RUE edematous, 1-2+ in Lower edema, peripheral perfusion with no cyanosis Neurological: Grossly non-focal Data : 10/04/20 03:12 10/04/20 03:12 Micro: Microbiology 10/02/20 15:00 Gram Stain - Final Peritoneal Fluid Body Fluid Culture - Preliminary 10/02/20 15:44 Body Fluid Culture - Preliminary Synovial Fluid 09/27/20 00:33 Blood Culture - Final Blood Corynebacterium species 09/27/20 20:22 Blood Culture - Final Blood Pseudomonas aeruginosa 10/02/20 10:30 Blood Culture - Preliminary Blood NEGATIVE TO DATE 10/02/20 10:24 Blood Culture - Preliminary Blood NEGATIVE TO DATE 09/30/20 15:25 Gram Stain - Final Toe - #1 Wound Culture - Final A&P Additional A&P Information 1. ESRD on PD. CAPD in-house, 2 L, 2.5%, 5xdaily We will adjust PD prescription accordingly during his hospitalization, however, he did well this last admission. Dose medications for GFR less than 15 on PD. 2. Right upper extremity DVT, adjacent to PICC. Management per medical team, currently on heparin infusion. 3. MSSA osteomyelitis, currently on IV Rocephin, to continue therapy during hospitalization. 4. Pseudomonas bacteremia, concern for septic arthropathy, to go to OR today for washout 5. Hemodynamics. Blood pressure looks good 6. Anemia. Iron sat low on Ferrex, s/p EPO dosing 7. Hyperphosphatemia. I will prescribe PhosLo for him during his hospital stay. Pavel Urias MD Nephrology [phone] Patient seen and examined via telemedicine, with the assistance of the bedside RN > 25 min spent in evaluation and mgmt of patient Attestations Medical Necessity Statement*: eval for PD mgmt Coding Level of Care Code Acute Healthcare Financial Analyst for Breanna Aguero
--- NOTE | 2020-10-04 12:00 | PC.NURSE ---
Patient taken to OR.
[2020-10-04] MEDS: sodium chloride 0.9% 1,000 ML 30 ML IV (12:31)
--- NOTE | 2020-10-04 12:46 | P.PN_ITS ---
Subjective Subjective: Interval history: Patient seen bedside this afternoon, was unavailable this morning for procedure. States he is doing well, denies any specific complaints. Patient denies any subjective nausea, vomiting, fever, chills, shortness of breath or chest pain. Vitals/I&O/Wt Last Vital Signs Temp 97.6 F 10/04/20 12:21 Pulse 83 10/04/20 12:21 Resp 16 10/04/20 12:21 BP 146/98 10/04/20 12:21 Pulse Ox 99 10/04/20 12:21 10/03/20 10/04/20 10/04/20 22:59 06:59 14:59 Intake Total 2263.4 / 6977.4 4606 / 13013.4 Output Total 2550 / 9270 5350 / 48187 Balance -286.6 / -2292.6 -744 / -3036.6 Weight last 48 hrs Weight 305 lb Physical Exam Narrative: EXAM NARRATIVE: Patient is alert and oriented ?3 and in no acute distress. The following is a focused lower extremity exam. VASCULAR: Dorsalis pedis and posterior tibial arteries palpable +1 bilaterally. Capillary refill time less than 5 seconds to the distal hallux bilaterally. Calf is supple and nontender proximally and distally. Diminished hair growth at legs and feet bilaterally, no hair growth appreciated to the level to dorsal toes. +1 pitting edema to the lower extremities. Palpable +1 popliteal artery bilaterally. NEUROLOGICAL: Protective sensation intact 0/10 sites, tested with Astatula Sergei monofilament to bilateral feet. DERMATOLOGICAL: Wound to the medial aspect of the right first metatarsal phalangeal joint measures wound measurements 4.8 cm x 3.0 cm x 0.4 cm, no purulent drainage, no periwound erythema, no malodor. No proximal lymphangitic streaking. Wound is exposed to bone able to visualize the proximal and distal phalanx of the right hallux. Hyper granulation at the proximal portion of the wound. MUSCULOSKELETAL: Muscle strength is 5 out of 5 in all 3 cardinal planes to bilateral foot and ankle. Pes planus foot type bilaterally. Ankle joint dorsiflexion is to neutral bilaterally. Reducible hammertoe deformities 2 through 5 bilaterally. Mild hallux abductovalgus deformity bilaterally, hallux is not track bound. Data : 10/04/20 03:12 10/04/20 03:12 Micro: Microbiology 09/30/20 01:06 Blood Culture - Preliminary Blood Pseudomonas aeruginosa 10/02/20 15:00 Gram Stain - Final Peritoneal Fluid Body Fluid Culture - Preliminary 10/02/20 15:44 Body Fluid Culture - Preliminary Synovial Fluid 09/27/20 00:33 Blood Culture - Final Blood Corynebacterium species 09/27/20 20:22 Blood Culture - Final Blood Pseudomonas aeruginosa 10/02/20 10:30 Blood Culture - Preliminary Blood NEGATIVE TO DATE 10/02/20 10:24 Blood Culture - Preliminary Blood NEGATIVE TO DATE 09/30/20 15:25 Gram Stain - Final Toe - #1 Wound Culture - Final A&P Assessment and plan (1) Diabetic peripheral neuropathy associated with type 2 diabetes mellitus: Status: Acute (2) ESRD (end stage renal disease): Status: Acute (3) Non-pressure chronic ulcer of other part of right foot with necrosis of bone: Status: Acute Mr. Bonilla is a 65-year-old male with osteomyelitis of the right hallux completing 6 weeks of IV antibiotics, 2 g of Rocephin infused daily via PICC line. Acute DVT of the right jugular, recommend infectious disease consultation as to discontinuing PICC line and potentially switching to oral antibiotics, appreciate infectious disease input in regards to this. Bone biopsy taken intraoperatively on 08/15/20 demonstrated no growth likely due to suppression as he was receiving empiric antibiotics prior to the procedure for several days. Wound bed culture taken 08/11/20 demonstrated strep G as well as staph aureus. Performed excisional debridement of nonviable epidermis, dermis, subcutaneous tissue down to and including fat layer, muscle and deep fascia of the right hallux wound, wound is clinically stable at this time without cellulitis, erythema or purulent drainage. -Performed dressing change, Iodosorb gel and Optifoam dressing. -Patient may ambulate as tolerated with postop shoe to the right foot. Elevate right foot while at rest -Repeat x-ray shows stable postoperative changes no further osteolysis. -ABIs unable to be obtained due to noncompressible vessels, waveforms shows normal amplitude with loss of dicrotic notch. Plans for CT angiogram of abdominal aorta with runoff. -Patient is adamant to continue limb salvage, from my perspective he has poor healing potential however his wound is stable and limb salvage could be pursued would require continued infection control, recommend close collaboration with infectious disease, appreciate Dr. Hackett recommendations, currently on doxycycline twice daily 100 mg and levofloxacin 750 mg every other day. Blood culture positive for Pseudomonas during this hospitalization. -I did have a discussion with the patient in regards to considering right hallux amputation, will await CT angio to further evaluate vascular status. -Podiatry will continue to follow while he is inpatient. Attestations Medical Necessity Statement*: Osteomyelitis right hallux Coding Level of Care Code Acute Electrical Engineering Drafting Officer for [facility] More Diagnoses Diabetic peripheral neuropathy associated with type 2 diabetes mellitus E11.42 ESRD (end stage renal disease) N18.6 Non-pressure chronic ulcer of other part of right foot with necrosis of bone L97.514
--- NOTE | 2020-10-04 12:50 | ANES.PREANE2 ---
Pre-Anesthetic Assessment Pre-Anesthetic Assessment: Height/Weight: Height 1.83 m Weight 138.346 kg Temp Pulse Resp BP Pulse Ox 97.6 F 83 16 146/98 99 10/04/20 12:21 10/04/20 12:21 10/04/20 12:21 10/04/20 12:21 10/04/20 12:21 Preop Diagnosis: Gas gangrene right foot Proposed Procedure: Operation Date: 10/04/20 11:55 Proposed Procedures p Debridement Upper Extremity, Right Shoulder arthroscopic irrigation and debridement(Right) - Marco Antonio Mendez MD Was Beta Jayne taken within 24 hours: Yes Last intake: Intake Last Liquid Date 10/03/20 Last Liquid Time 17:30 Last Solid Date 10/03/20 Last Solid Time 17:00 Social: Social History: No alcohol and No tobacco Exam: Pre-Anes Outpt Exam: alert, oriented x 3, clear to auscultation bilaterally and regular rate & rhythm Airway: Submandibular: WNL Cervical ROM: WNL MP: 3 Additional comments: Missing tooth on lower arch Pulmonary: Pulmonary: Sleep apnea CV/HEM: CV/HEM: Afib, Anemia and HTN : : Chronic renal failure Comments: PD Hepatic: Hepatic: None reported GI: GI: GERD Metabolic: Metabolic: DM and Morbid obesity Anesthetic Plan: ASA status: 4 Anesthesia: General Risk of > 500 ml blood loss (7ml/kg in children): No Meds/Allergies Current Medications: Current Medications Generic Name Dose Route Start Last Admin Trade Name Freq PRN Reason Stop Dose Admin Hydrocodone Bitart /Acetaminophen 1 tab 09/29/20 15:14 10/03/20 23:13 Hydrocodone-Acet aminophen 5-325 Mg Tablet PO 1 tab Q4H PRN Administration MODERATE PAIN Allopurinol 300 mg 09/28/20 09:00 10/04/20 05:18 Allopurinol 300 Mg Tablet PO 300 mg QAM MARIANELA Administration Atorvastatin Calci um 20 mg 09/28/20 09:00 10/04/20 05:17 Atorvastatin 40 Mg Tablet PO 20 mg QAM MARIANELA Administration Calcium Acetate 1,334 mg 09/28/20 18:00 10/04/20 11:39 Calcium Acetate 667 Mg Capsule PO Not Given TIDWM MARIANELA Citalopram Hydrobr omide 20 mg 09/28/20 21:00 10/03/20 21:58 Citalopram 20 Mg Tablet PO 20 mg BEDTIME MARIANELA Administration Clonidine HCl 0.1 mg 09/28/20 09:00 10/04/20 11:01 Clonidine 0.1 Mg Tablet PO Not Given BID MARIANELA Diltiazem HCl 60 mg 09/28/20 09:25 10/04/20 10:56 Diltiazem 60 Mg Tablet PO 60 mg TID MARIANELA Administration Doxycycline Monohy drate 100 mg 09/30/20 11:15 10/04/20 11:14 Doxycycline 100 Mg Tablet PO 100 mg 1000,2100 MARIANELA Administration Protocol Ergocalciferol 50,000 unit 09/27/20 23:10 09/27/20 23:44 Ergocalciferol ( Vitamin D2) 50,000 Unit Capsule PO 50,000 unit Q7D MARIANELA Administration Gentamicin Sulfate 1 applic 10/01/20 09:00 10/04/20 11:01 Gentamicin 0.1% Cream 15 Gm TOPICAL Not Given DAILY MARIANELA Heparin Sodium (Be ef Lung) 0 unit 10/03/20 09:57 10/03/20 11:18 Heparin 5,000 Un it/Ml Inj 1 Ml IV 7,000 unit PRN PRN Administration Heparin weight-ba se protocol Protocol Hydralazine HCl 50 mg 09/29/20 15:00 10/04/20 10:57 Hydralazine 50 M g Tablet PO 50 mg TID MARIANELA Administration Sodium Chloride 1,000 mls @ 30 ml s/hr 10/04/20 12:30 10/04/20 12:31 Sodium Chloride 0.9% IV 10/05/20 12:29 30 mls/hr .Q24H MARIANELA Administration Insulin Aspart 0 unit 10/03/20 18:00 10/04/20 09:56 Insulin Aspart 1 00 Unit/1 Ml SUBCUT 6 unit WM&BEDTIME MARIANELA Administration Protocol Insulin Glargine 12 unit 10/03/20 21:00 10/03/20 22:00 Insulin Glargine 100 Units/1 Ml SUBCUT 12 unit BEDTIME MARIANELA Administration Levofloxacin 750 mg 10/02/20 09:00 10/04/20 10:57 Levofloxacin 750 Mg Tablet PO 750 mg EVERY OTHER DAY S CH Administration Protocol Levothyroxine Sodi um 150 mcg 09/28/20 06:00 10/04/20 05:17 Levothyroxine 75 Mcg Tablet PO 150 mcg QAM MARIANELA Administration Losartan Potassium 100 mg 09/28/20 21:00 10/03/20 21:58 Losartan 50 Mg T ablet PO 100 mg BEDTIME MARIANELA Administration Metoprolol Tartrat e 50 mg 09/28/20 09:00 10/04/20 10:55 Metoprolol Tartr ate 50 Mg Tablet PO 50 mg BID MARIANELA Administration Non-Formulary Medi cation 1 mcg 09/28/20 06:00 10/04/20 05:20 Paricalcitol [Ze mplar] PO Not Given QAM MARIANELA Non-Formulary Medi cation 1 tab 09/28/20 06:00 10/04/20 05:20 Renal Factor Plu s PO Not Given QAM MARIANELA Non-Formulary 1 each 09/29/20 15:00 10/04/20 11:02 Medication (Iodoso rb TOPICAL Not Given (Cadexomer Iodine DAILY MARIANELA Gel)) Non-Formulary Medi cation 100 each 10/03/20 12:01 10/04/20 05:18 Non-Formulary Me dication PO 100 each QAM MARIANELA Administration Pantoprazole Sodiu m 40 mg 09/28/20 09:00 10/04/20 05:[address] 40 Mg Tablet PO 40 mg QAM MARIANELA Administration Peritoneal Dialysi s Solution 2,000 ml 10/02/20 14:00 10/04/20 10:40 Dianeal Low Ca W /2.5% Dex 2,000 Ml Bag INTRAPERIT 2,000 ml 5XD MARIANELA Administration Polyethylene Glyco l 17 gm 09/28/20 14:30 10/04/20 10:46 Polyethylene Gly col 3350 Pkt 17 Gm PO Not Given BID MARIANELA Polysaccharide Iro n Complex 150 mg 09/28/20 09:00 09/30/20 08:54 Iron Polysacchar efrain Complex 150 Mg Capsule PO 150 mg BID MARIANELA Administration PFSH Anesthesia PFSH: Medical History Anemia Atrial fibrillation with RVR Atrial fibrillation, chronic Diabetes Diabetic neuropathy Elevated troponin End stage renal disease -on peritoneal dialysis Gout Hypertension Hypothyroidism Morbid obesity Surgical History Presence of Watchman left atrial appendage closure device S/P PICC central line placement aug 16 2020 Family History Other Family history non-contributory Social History Alcohol intake: never Substance/Drug Use: never Housing: House Data Anesthesia CBC & Chem 7: 10/04/20 03:12 10/04/20 03:12 Other Labs: Laboratory Results - last 48 hr 10/02/20 10/02/20 10/02/20 16:59 20:10 23:45 WBC RBC Hgb Hct MCV MCH MCHC RDW Plt Count MPV Neut % (Auto) Lymph % (Auto) Cameron % (Auto) Eos % (Auto) Baso % (Auto) Neut # (Auto) Lymph # (Auto) Cameron # (Auto) Eos # (Auto) Baso # (Auto) Nucleated RBC % (auto) Nucleated RBCs # APTT Sodium Potassium Chloride Carbon Dioxide Anion Gap BUN Creatinine GFR Calculation Glucose POC Glucose 191 H 262 H Calculated Osmolality Calcium Total Bilirubin AST ALT Alkaline Phosphatase Total Protein Albumin Globulin Peritoneal Color Colorless Peritoneal Appearance Clear Peritoneal WBC 110 Peritoneal RBC 0 Periton Mononu # Auto 0.073 Mononuclear WBCs % 66.400 Polynuclear WBCs % 33.600 Perit Polynuc WBCs # 0.037 10/03/20 10/03/20 10/03/20 03:23 03:23 05:36 WBC 10.9 H RBC 3.14 L Hgb 8.7 L Hct 28.4 L MCV 90.4 MCH 27.7 L MCHC 30.6 RDW 17.1 H Plt Count 157 MPV 11.5 H Neut % (Auto) 71.3 Lymph % (Auto) 10.2 Cameron % (Auto) 10.4 Eos % (Auto) 6.0 Baso % (Auto) 0.2 Neut # (Auto) 7.77 H Lymph # (Auto) 1.1 Cameron # (Auto) 1.1 H Eos # (Auto) 0.7 Baso # (Auto) 0.0 Nucleated RBC % (auto) 0 Nucleated RBCs # 0.0 APTT Sodium Cancelled 133 L Potassium Cancelled 4.2 Chloride Cancelled 97 L Carbon Dioxide Cancelled 25 Anion Gap Cancelled 15.2 BUN Cancelled 66 H Creatinine Cancelled 6.3 H* GFR Calculation Cancelled 8.9 L Glucose Cancelled 177 H POC Glucose Calculated Osmolality Cancelled 299 H Calcium Cancelled 9.2 Total Bilirubin Cancelled 0.2 AST Cancelled 21 ALT Cancelled 27 Alkaline Phosphatase Cancelled 104 Total Protein Cancelled 7.6 D Albumin Cancelled 2.5 L Globulin Cancelled 5.1 H Peritoneal Color Peritoneal Appearance Peritoneal WBC Peritoneal RBC Periton Mononu # Auto Mononuclear WBCs % Polynuclear WBCs % Perit Polynuc WBCs # 10/03/20 10/03/20 10/03/20 07:02 11:09 16:55 WBC RBC Hgb Hct MCV MCH MCHC RDW Plt Count MPV Neut % (Auto) Lymph % (Auto) Cameron % (Auto) Eos % (Auto) Baso % (Auto) Neut # (Auto) Lymph # (Auto) Cameron # (Auto) Eos # (Auto) Baso # (Auto) Nucleated RBC % (auto) Nucleated RBCs # APTT Sodium Potassium Chloride Carbon Dioxide Anion Gap BUN Creatinine GFR Calculation Glucose POC Glucose 208 H 276 H 249 H Calculated Osmolality Calcium Total Bilirubin AST ALT Alkaline Phosphatase Total Protein Albumin Globulin Peritoneal Color Peritoneal Appearance Peritoneal WBC Peritoneal RBC Periton Mononu # Auto Mononuclear WBCs % Polynuclear WBCs % Perit Polynuc WBCs # 10/03/20 10/03/20 10/04/20 18:05 21:24 03:12 WBC 11.1 H RBC 2.85 L Hgb 7.9 L Hct 26.6 L MCV 93.3 MCH 27.7 L MCHC 29.7 L RDW 16.9 H Plt Count 233 MPV 10.2 Neut % (Auto) 69.7 Lymph % (Auto) 11.1 Cameron % (Auto) 10.0 Eos % (Auto) 7.6 Baso % (Auto) 0.2 Neut # (Auto) 7.76 H Lymph # (Auto) 1.2 Cameron # (Auto) 1.1 H Eos # (Auto) 0.8 Baso # (Auto) 0.0 Nucleated RBC % (auto) 0 Nucleated RBCs # 0.0 APTT 60.6 H Sodium Potassium Chloride Carbon Dioxide Anion Gap BUN Creatinine GFR Calculation Glucose POC Glucose 232 H Calculated Osmolality Calcium Total Bilirubin AST ALT Alkaline Phosphatase Total Protein Albumin Globulin Peritoneal Color Peritoneal Appearance Peritoneal WBC Peritoneal RBC Periton Mononu # Auto Mononuclear WBCs % Polynuclear WBCs % Perit Polynuc WBCs # 10/04/20 10/04/20 10/04/20 03:12 06:52 10:50 WBC RBC Hgb Hct MCV MCH MCHC RDW Plt Count MPV Neut % (Auto) Lymph % (Auto) Cameron % (Auto) Eos % (Auto) Baso % (Auto) Neut # (Auto) Lymph # (Auto) Cameron # (Auto) Eos # (Auto) Baso # (Auto) Nucleated RBC % (auto) Nucleated RBCs # APTT Sodium 135 L Potassium 4.2 Chloride 98 Carbon Dioxide 26 Anion Gap 15.2 BUN 63 H Creatinine 6.5 H* GFR Calculation 8.6 L Glucose 180 H POC Glucose 201 H 169 H Calculated Osmolality 303 H Calcium 9.0 Total Bilirubin 0.2 AST 23 ALT 25 Alkaline Phosphatase 103 Total Protein 7.3 Albumin 2.2 L Globulin 5.1 H Peritoneal Color Peritoneal Appearance Peritoneal WBC Peritoneal RBC Periton Mononu # Auto Mononuclear WBCs % Polynuclear WBCs % Perit Polynuc WBCs # Micro: Microbiology 09/30/20 01:06 Blood Culture - Preliminary Blood Pseudomonas aeruginosa 10/02/20 15:00 Gram Stain - Final Peritoneal Fluid Body Fluid Culture - Preliminary 10/02/20 15:44 Body Fluid Culture - Preliminary Synovial Fluid 09/27/20 00:33 Blood Culture - Final Blood Corynebacterium species 09/27/20 20:22 Blood Culture - Final Blood Pseudomonas aeruginosa 10/02/20 10:30 Blood Culture - Preliminary Blood NEGATIVE TO DATE 10/02/20 10:24 Blood Culture - Preliminary Blood NEGATIVE TO DATE 09/30/20 15:25 Gram Stain - Final Toe - #1 Wound Culture - Final Cardiac Studies: No Data to Display
--- NOTE | 2020-10-04 12:57 | W.PM.OPSUD ---
Surgery/Procedure H&P Update DATE OF PROCEDURE: October 04, 2020 DATE H&P PERFORMED: 10/02/20 PREOP DIAGNOSIS: Gas gangrene right foot PLANNED PROCEDURE: Operation Date: 10/04/20 11:55 Proposed Procedures p Debridement Upper Extremity, Right Shoulder arthroscopic irrigation and debridement(Right) - Marco Antonio Mendez MD
--- NOTE | 2020-10-04 13:50 | P.CONIM_ITS ---
Providers/Reason For Consult Consulting Physican/Specialty*: Dr. Day Hackett/infectious disease Reason for Consult*: osteomyelitis, Psuedomonas bacteremia Requesting Physcian: Artemio Rodriguez, hospitalist Attending Physician: Kory Sosa MD Primary Care Provider: Anmol Santiago History of Present Illness History of Present Illness Levi Bonilla is a 65 year old male with PMH DM2, gout, peripheral neuropathy, HTN, CKD on PD who I had last seen on an inpatient consult on 08/18 when he had presented with gas gangrene status post or debridement on 08/15, intraoperatively changes were noted to extend down to the level of the joint capsule. Devitalized soft tissue and bone was noted on the right foot including involvement of the proximal phalanx of the right hallux. Antibiotic impregnated cement spacer was placed on this day and a wound VAC placed. OR cultures had remained negative, wound cultures previously from an ulcer that was overlying this area had shown MSSA and group B streptococcus. Arterial Doppler at the time had not shown any high-grade occlusion and venous Duplex was without DVT. He had previously reported history is of MSSA PJI infections of his left knee and peritoneal dialysis catheter. He was treated with IV vancomycin and Zosyn initially while he was inpatient and this was narrowed down to ceftriaxone 2 g every 24 hour for the next 6 weeks via PICC line. He was planned to follow-up in the ID clinic on September 28, however presented to the ER due to right upper extremity swelling and was found to have a right IJ DVT. He has followed with podiatry as an outpatient wherein he is noted to have a persistently elevated ESR and leukocytosis. His wound over the foot however was noted to be healing well without any overt signs of infection as of his last visit on September 20, 2020 at the podiatry clinic. On September 27 he presented to the ER with A. fib RVR, right IJ DVT, for which she was started on heparin infusion and Cardizem gtt. This was most likely to be PICC line associated DVT. Per review of notes he was also noted to have swelling tenderness and erythema around the site of PICC insertion. Eventually he was found to have positive blood cultures for Pseudomonas aeruginosa on September 27 and then again on September 30. At this time I did discuss the findings with Dr. Barnes and recommended removal of the PICC line to facilitate clearance of bacteremia and concern for septic thrombophlebitis. IV access has been an ongoing problem this admission, patient currently has peripheral IV lines after removal of PICC line on 10/01 after getting anticoagulation. Left arm is being preserved as he has an AV fistula on that side in anticipation of moving to HD down the line. Due to need for continuing multiple other medications through the IV line it was decided to switch antibiotics to highly bioavailable oral antibiotics by way of levofloxacin to cover for Pseudomonas aeruginosa bacteremia (isolate confirmed to be susceptible) and doxycycline for known MSSA osteomyelitis. He was evaluated by Dr. Woodall from podiatry during this current admission as well. Right foot x-ray shows stable osteomyelitis, no new changes, ABIs unable to be obtained due to noncompressible vessels, waveforms shows normal amplitude with loss of dicrotic notch, Patient is adamant to continue limb salvage. He has a chronic wound over the site of previous surgery for which wound vac had been placed, discontinued after approximately 3 weeks after 08/18. Currently there is no gross sign of cellulitis at the site. Wound with red healthy appearing granulation tissue at base, underlying bone exposed. Other notable events this admission include B/L shoulder joint pain, effusion of Right shoulder joint (same side as RIJ DVT) for which patient underwent arthroscopic debridement of right shoulder on 10/04/20. He had previously undergone aspiration of this joint on 10/02 with return of cloudy fluid. Cx and gram stain were negative from this aspirate. Cell count N/A. Patient states swelling over the left arm is significantly improved compared to admission. 4-5 days prior to current admission patient had undergone steroid injections into B/L shoulders with his PCP. Pertinent imaging : 09/27 RUE duplex: Right deep veins: Hypoechoic, nonocclusive thrombus in the internal jugular vein. Axillary, brachial, radial and ulnar veins are patent throughout without thrombus. Visualized subclavian vein patent. 09/30: Rue duplex: Mild improvement in right jugular DVT. No new DVT. CXR 09/28: 1. Cardiomegaly. 2. No acute cardiopulmonary process. Foot X ray 09/29: Impression: 1. No change from prior right foot x-ray. 2. Changes consistent with Charcot joint and osteomyelitis of the base of right first proximal phalanx. 09/29: ISAIAH B/L LE CONCLUSIONS Noncompressible arteries bilaterally ABIs and TBIs could not be obtained Some features of mild peripheral artery disease bilaterally 09/30: Shoulder MRI: IMPRESSION: 1. Massive, full-thickness, retracted rotator cuff tear. 2. Massive glenohumeral joint effusion with extensive periarticular soft tissue swelling. If there is clinical concern for intra-articular infection, joint aspiration may be useful. No convincing MR evidence of acute osteomyelitis. 3. Additional findings, as above. 10/02: CT chest abd pel w con*: IMPRESSION: 1. Tiny right pleural effusion. No pneumonia is seen. 2. Coronary artery calcification. 3. No other acute abnormalities are seen in the chest. IMPRESSION: 1. A dialysis catheter is present. Free intraperitoneal fluid and a small amount of free air are consistent with the presence of the dialysis catheter. 2. Subcutaneous edema consistent with anasarca. 3. No definite acute abnormalities are seen within the abdomen and pelvis. Leukocytosis trend : 11-->13-->11 cr: elavted 2/2 CKD, on PD LFT: WNL Microbiology: 10/02: right shoulder aspirate: no organisms on gram stain, moderate epithelial cells, no WBCs 09/30: Right great toe WC and GS: no organisms seen 10/02: Blood cx: NGTD 09/30: Blood cx 14: 12: NGTD 09/30: Blood cx 0100: 4 + Pseudomonas aeruginosa s/t cefepime, aztreonam, cipro, levaquin, gent, imipenem,zosyn 09/29,09/28: Blood cx : N/A 09/27: Blood cx : 2022: 4+ Pseudomonas aeruginosa s/t cefepime, aztreonam, cipro, levaquin, gent, imipenem,zosyn 09/27: Blood cx 0033: 09/13+ corynebacterium spp, likely contaminant 08/11: GS wound: MSSA + grp G strep Picc removed 10/01 10/02: Peritoneal fluid cell count : 116 Antibiotic course: Levofloxacin 09/30- doxy 100 bid 09/30 ceftriaxone 09/28-09/30 , continuing from 6 weeks prior OR findings : 10/04 from arthroscopic debridement right shoulder: lightly cloudy fluid was identified. The clinical appearance was much better than the appearance of the fluid on the aspiration of 10/02/2020. Massive rotator cuff tear was identified. No necrotic material was identified Review of Systems General: Reports: 10 or more systems reviewed and unremarkable except in HPI and below Const: Denies: fever(s), chills or body aches Eyes: Denies: change in vision, blurry vision or photophobia ENMT: Reports: hoarseness; Denies: throat pain, enlarged tonsils, odynophagia or nasal congestion Card: Denies: chest pain, palpitations, irregular heart rhythm, edema, swelling of feet/ankles, lightheadedness, pre-syncope, dyspnea on exertion or orthopnea Resp: Denies: dyspnea, productive cough, non-productive cough, wheezing, stridor, pain on inspiration, change in phlegm color, hemoptysis or chest congestion GI: Denies: abdominal pain, nausea, vomiting, hematemesis, coffee ground emesis, dysphagia, heartburn, diarrhea, constipation, GI cramping, change in stool character, hematochezia or melena : Denies: flank pain, dysuria, urinary frequency, urinary urgency, urinary hesitancy or hematuria Musc: Denies: neck pain, back pain, extremity pain, joint swelling, joint warmth or deformity Neuro: Denies: headache(s), numbness in extremities, weakness in extremities, sensory changes, difficulty walking, frequent falls, dizziness, vertigo, behavioral changes, Slurred speech present or seizure-like activity Psych: Denies: anxiety, depression, suicidal ideation or homicidal ideation Endo: Denies: polyuria, polydipsia, tired all the time, cold intolerance or hot flashes Edmundo/Lymph: Denies: easy bruising or easy bleeding Meds/Allergies Home Medications and Allergies Home Medications Medication Instructions Recorded Confirmed Last Taken Type allopurinol 300 mg PO QAM 08/11/20 09/27/20 09/27/20 History amlodipine 10 mg PO BEDTIME 08/11/20 09/27/20 09/26/20 History atorvastatin 20 mg PO QAM 08/11/20 09/27/20 09/27/20 History citalopram 20 mg PO BEDTIME 08/11/20 09/27/20 09/26/20 History clonidine HCl 0.1 mg PO BID 08/11/20 09/27/20 09/27/20 History cyclobenzaprine 5 mg PO Q8H PRN 08/11/20 09/27/20 09/26/20 History ergocalciferol (vitamin D2) 1,250 mcg PO Q7D 08/11/20 09/27/20 08/11/20 History levothyroxine 150 mcg PO QAM 08/11/20 09/27/20 09/27/20 History losartan 100 mg PO BEDTIME 08/11/20 09/27/20 09/26/20 History megestrol 40 mg PO DAILY 08/11/20 09/27/20 08/11/20 History mupirocin calcium See Rx Instructions .ROUTE .COMPLEX 08/11/20 09/27/20 Unknown History pantoprazole 40 mg PO QAM 08/11/20 09/27/20 09/27/20 History paricalcitol [Zemplar] 1 mcg PO QAM 08/11/20 09/27/20 09/27/20 History peritoneal dialysis solution See Rx Instructions .ROUTE .COMPLEX 08/11/20 09/27/20 08/10/20 History torsemide 100 mg PO QAM 08/11/20 09/27/20 08/11/20 History tramadol 50 - 100 mg PO Q8H PRN 08/11/20 09/27/20 09/26/20 History glipizide 7.5 mg PO DAILY 30 Days #45 tab 08/18/20 09/27/20 09/27/20 Rx cadexomer iodine 0.9 % topical gel 40 g TOPICAL Q3D #40 g 09/07/20 09/27/20 09/27/20 Rx states uses everyday Post Operative darco shoe #1 ea 09/20/20 09/27/20 Unknown Rx Ferrex 150 150 mg PO BID 09/27/20 09/27/20 09/27/20 History Renal Factor Plus 1 tab PO QAM 09/27/20 09/27/20 09/27/20 History Tylenol Extra Strength 1,000 mg PO PRN 09/27/20 09/27/20 09/26/20 History aspirin 81 mg PO QPM 09/27/20 09/27/20 09/26/20 History sodium chloride 0.9 % See Rx Instructions .ROUTE .COMPLEX 09/27/20 09/27/20 Unknown History amoxicillin-pot clavulanate 1 tab PO BID 42 Days #84 tab 10/07/20 Unknown Rx apixaban [Eliquis DVT-PE Treat 30D See Rx Instructions .ROUTE 10/07/20 Unknown Rx Start] .COMPLEX #74 ea hydralazine 25 mg PO TID 30 Days #90 tab 10/07/20 Unknown Rx hydrocodone-acetaminophen 1 tab PO Q8H PRN #15 tab 10/07/20 Unknown Rx levofloxacin 750 mg PO EVERY OTHER DAY 42 Days 10/07/20 Unknown Rx #21 tab metoprolol tartrate 75 mg PO BID #0 tab 10/07/20 09/27/20 09/27/20 08:00 Rx Allergies Allergy/AdvReac Type Severity Reaction Status Date / Time No Known Allergies Allergy Verified 09/27/20 20:05 Current Medications Current Medications Generic Name Dose Route Start Last Admin Trade Name Freq PRN Reason Stop Dose Admin Hydrocodone Bitart/Acetaminophen 1 tab 09/29/20 15:14 10/03/20 23:13 Hydrocodone-Acetaminophen 5-325 Mg Tablet PO 1 tab Q4H PRN Administration MODERATE PAIN Allopurinol 300 mg 09/28/20 09:00 10/04/20 05:18 Allopurinol 300 Mg Tablet PO 300 mg QAM MARIANELA Administration Atorvastatin Calcium 20 mg 09/28/20 09:00 10/04/20 05:17 Atorvastatin 40 Mg Tablet PO 20 mg QAM MARIANELA Administration Calcium Acetate 1,334 mg 09/28/20 18:00 10/04/20 11:39 Calcium Acetate 667 Mg Capsule PO Not Given TIDWM MARIANELA Citalopram Hydrobromide 20 mg 09/28/20 21:00 10/03/20 21:58 Citalopram 20 Mg Tablet PO 20 mg BEDTIME MARIANELA Administration Clonidine HCl 0.1 mg 09/28/20 09:00 10/04/20 11:01 Clonidine 0.1 Mg Tablet PO Not Given BID MARIANELA Diltiazem HCl 60 mg 09/28/20 09:25 10/04/20 10:56 Diltiazem 60 Mg Tablet PO 60 mg TID MARIANELA Administration Doxycycline Monohydrate 100 mg 09/30/20 11:15 10/04/20 11:14 Doxycycline 100 Mg Tablet PO 100 mg 1000,2100 MARIANELA Administration Protocol Ergocalciferol 50,000 unit 09/27/20 23:10 09/27/20 23:44 Ergocalciferol (Vitamin D2) 50,000 Unit Capsule PO 50,000 unit Q7D MARIANELA Administration Gentamicin Sulfate 1 applic 10/01/20 09:00 10/04/20 11:01 Gentamicin 0.1% Cream 15 Gm TOPICAL Not Given DAILY MARIANELA Heparin Sodium (Beef Lung) 0 unit 10/03/20 09:57 10/03/20 11:18 Heparin 5,000 Unit/Ml Inj 1 Ml IV 7,000 unit PRN PRN Administration Heparin weight-base protocol Protocol Hydralazine HCl 50 mg 09/29/20 15:00 10/04/20 10:57 Hydralazine 50 Mg Tablet PO 50 mg TID MARIANELA Administration Sodium Chloride 1,000 mls @ 30 mls/hr 10/04/20 12:30 10/04/20 12:31 Sodium Chloride 0.9% IV 10/05/20 12:29 30 mls/hr .Q24H MARIANELA Administration Insulin Aspart 0 unit 10/03/20 18:00 10/04/20 09:56 Insulin Aspart 100 Unit/1 Ml SUBCUT 6 unit WM&BEDTIME MARIANELA Administration Protocol Insulin Glargine 12 unit 10/03/20 21:00 10/03/20 22:00 Insulin Glargine 100 Units/1 Ml SUBCUT 12 unit BEDTIME MARIANELA Administration Levofloxacin 750 mg 10/02/20 09:00 10/04/20 10:57 Levofloxacin 750 Mg Tablet PO 750 mg EVERY OTHER DAY MARIANELA Administration Protocol Levothyroxine Sodium 150 mcg 09/28/20 06:00 10/04/20 05:17 Levothyroxine 75 Mcg Tablet PO 150 mcg QAM MARIANELA Administration Losartan Potassium 100 mg 09/28/20 21:00 10/03/20 21:58 Losartan 50 Mg Tablet PO 100 mg BEDTIME MARIANELA Administration Metoprolol Tartrate 50 mg 09/28/20 09:00 10/04/20 10:55 Metoprolol Tartrate 50 Mg Tablet PO 50 mg BID MARIANELA Administration Non-Formulary Medication 1 mcg 09/28/20 06:00 10/04/20 05:20 Paricalcitol [Zemplar] PO Not Given QAM MARIANELA Non-Formulary Medication 1 tab 09/28/20 06:00 10/04/20 05:20 Renal Factor Plus PO Not Given QAM MARIANELA Non-Formulary 1 each 09/29/20 15:00 10/04/20 11:02 Medication (Iodosorb TOPICAL Not Given (Cadexomer Iodine DAILY MARIANELA Gel)) Non-Formulary Medication 100 each 10/03/20 12:01 10/04/20 05:18 Non-Formulary Medication PO 100 each QAM MARIANELA Administration Pantoprazole Sodium 40 mg 09/28/20 09:00 10/04/20 05:[address] 40 Mg Tablet PO 40 mg QAM MARIANELA Administration Peritoneal Dialysis Solution 2,000 ml 10/02/20 14:00 10/04/20 10:40 Dianeal Low Ca W/2.5% Dex 2,000 Ml Bag INTRAPERIT 2,000 ml 5XD MARIANELA Administration Polyethylene Glycol 17 gm 09/28/20 14:30 10/04/20 10:46 Polyethylene Glycol 3350 Pkt 17 Gm PO Not Given BID MARIANELA Polysaccharide Iron Complex 150 mg 09/28/20 09:00 09/30/20 08:54 Iron Polysaccharide Complex 150 Mg Capsule PO 150 mg BID MARIANELA Administration PFSH Acute PFSH: Medical History Anemia Atrial fibrillation with RVR Atrial fibrillation, chronic Diabetes Diabetic neuropathy Elevated troponin End stage renal disease -on peritoneal dialysis Gout Hypertension Hypothyroidism Morbid obesity Surgical History Presence of Watchman left atrial appendage closure device S/P PICC central line placement aug 16 2020 Family History Other Family history non-contributory Social History Alcohol intake: never Housing: House Vitals/I&O/Wt Last Vital Signs Temp 97.6 F 10/04/20 12:21 Pulse 83 10/04/20 12:21 Resp 16 10/04/20 12:21 BP 146/98 10/04/20 12:21 Pulse Ox 99 10/04/20 12:21 10/03/20 10/04/20 10/04/20 22:59 06:59 14:59 Intake Total 2263.4 / 6977.4 4606 / 50780.4 Output Total 2550 / 9270 5350 / 04606 Balance -286.6 / -2292.6 -744 / -3036.6 Weight last 48 hrs Weight 138.346 kg Physical Exam Narrative: EXAM NARRATIVE: General: No acute distress, AO x3 HEENT: PERRLA, pupils bilaterally equal and reactive, pallors not present Chest: Normal vesicular breath sounds, no added sounds, equal good air entry bilaterally CVS: S1-S2 regular, no murmurs, no tachycardia, no gallops, no rubs Abdomen: Soft, nontender, no organomegaly, bowel sounds present Neuro: No focal deficits, no facial deformity, AO x3, power 5/5 in all limbs Extremities: post surgical dressing present on the right shoulder, not opened for exam Data Labs: Other Labs: Blood cx 09/30: 1 OF 4 BOTTLES POSITIVE DIRECT GRAM STAIN: GRAM NEGATIVE RODS P [facility] RX --------- ------ * Amikacin <=16 S * Aztreonam 8 S * Cefepime <=8 S * Ciprofloxacin <=1 S * Gentamicin 4 S * Imipenem <=1 S * Levofloxacin <=2 S * Piperacillin/Tazobactam <=16 S Blood cx 09/27: 1 OF 4 BOTTLES POSITIVE DIRECT GRAM STAIN: GRAM NEGATIVE RODS P [facility] RX --------- ------ * Amikacin <=16 S * Aztreonam 8 S * Cefepime <=8 S * Ciprofloxacin <=1 S * Gentamicin 8 I * Imipenem <=1 S * Levofloxacin <=2 S * Tobramycin <=4 S * Piperacillin/Tazobactam <=16 S 09/27 blood cx: 1 OF 4 BOTTLES POSITIVE DIRECT GRAM STAIN: GRAM POSITIVE RODS Blood Culture Preliminary (changed) 10/02/20-1410 1 OF 4 BOTTLES POSITIVE DIRECT GRAM STAIN: GRAM POSITIVE RODS PROBABLE CONTAMINANTS. Organism 1 Corynebacterium species Growth IN 1 BOTTLE 08/11/20 wound cx : Gram Stain Final 08/12/20-0123 No Organisms Seen No Organism Seen Wound Culture Final 08/15/20-0939 Organism 1 Staphylococcus aureus Growth FEW Organism 2 Group g streptococcus Growth SCANT Strep Typing Strep Typing ISOLATE 2: STREPTOCOCCUS GROUPS A,B,C,D,F,&G. PENICILLIN G OR V IS THE DRUG OF CHOICE. ALTERNATIVELY ALL BETA-LACTAMS OR ERYTHROMYCIN. CRITICAL RESULT YES/NO: YES CRITICAL CALLED BY: LUCÍA TO AND READ BACK BY: ROSI DATE: 08/13/20 TIME: 0854 S aureus [facility] RX --------- ------ * Amoxicillin/Clavulanate <=4/2 S * Ampicillin <=2 R * Ampicillin/Sulbactam <=8/4 S * Ceftriaxone <=8 S * Ciprofloxacin <=1 S * Clindamycin <=0.5 S * Erythromycin <=0.5 S * Gentamicin <=4 S * Levofloxacin <=1 S * Linezolid 2 S * Oxacillin 0.5 S * Penicillin 2 R * Rifampin <=1 S * Tetracycline <=4 S * Trimethoprim/Sulfamethoxazole <=0.5/9.5 S Vancomycin 1 S Daptomycin <=0.5 S Micro: Micro: Microbiology 09/30/20 01:06 Blood Culture - Pr eliminary Blood Pseudomonas aer uginosa 10/02/20 15:00 Gram Stain - Final Peritoneal Fluid Body Fluid Culture - Preliminary 10/02/20 15:44 Body Fluid Culture - Preliminary Synovial Fluid 09/27/20 00:33 Blood Culture - Fi nal Blood Corynebacterium species 09/27/20 20:22 Blood Culture - Fi nal Blood Pseudomonas aer uginosa 10/02/20 10:30 Blood Culture - Pr eliminary Blood NEGATIVE TO EMILY E 10/02/20 10:24 Blood Culture - Pr eliminary Blood NEGATIVE TO EMILY E 09/30/20 15:25 Gram Stain - Final Toe - #1 Wound Culture - Fi nal Other Data: Attestation for Other Data: I personally reviewed and interpreted the following: Other data: CT CAP, MRI shoulder, microbiology results, CXR, foot X ray, UE duplex exams A&P Assessment and plan (1) Septic thrombophlebitis of upper extremities: Status: Acute (2) Effusion of glenohumeral joint of right upper extremity: Status: Acute (3) Septicemia, Pseudomonas: Status: Acute (4) DVT (deep venous thrombosis): Status: Acute Qualifiers: Chronicity: acute DVT location: non-extremity vein Qualified Code(s): I82.90 - Acute embolism and thrombosis of unspecified vein (5) Diabetic peripheral neuropathy associated with type 2 diabetes mellitus: Status: Acute (6) Chronic disease anemia: Status: Acute (7) ESRD (end stage renal disease): Status: Acute (8) Osteomyelitis: Status: Acute Qualifiers: Osteomyelitis type: unspecified type Osteomyelitis location: foot Laterality: right Qualified Code(s): M86.9 - Osteomyelitis, unspecified Additional A&P Information 65 year old male with PMH DM2, gout, peripheral neuropathy, HTN, CKD on PD with Right foot osteomyelitis for which he is completing 6 weeks of iv ceftriaxone presented on 09/27 with RUE swelling, right shoulder jpoint swelling, found to have partial RIJ DVT and septic thrombophlebitis with Blood cx positive for Pseudomonas aeruginosa #Septic thrombophlebitis from right IJ DVT, associated with PICC line Blood culture positive for Pseudomonas aeruginosa on 09/27 and 09/30 Blood culture clear as of 10/03/2020 PICC line removed 10/01 after appropriate anticoagulation Clot burden appears to be decreasing on serial venous Duplex CT chest abdomen pelvis without signs of distal embolization Currently on treatment with Levofloxacin which is renally dosed Levofloxacin is chosen over IV cefepime or IV pip/tazo as patient does not currently have a good means of IV access. Right IJ has DVT. Left arm has AV fistula therefore not a candidate for PICC on the side. Counting from October 03, will plan for 4 to 6-week course of directed antibiotic treatment for endovascular infection with an aggressive organism. Unclear source Pseudomonas in the bloodstream. Patient recently had steroid injections into bilateral shoulders, PD site without overt signs of infection, peritoneal culture negative to date. Right shoulder joint was noted to be swollen, aspirate was turbid appearing, however Gram stain and cultures remain negative from this joint. Likely that this is related to rotator cuff tear and effusion of the glenohumeral joint, however septic arthritis cannot be completely excluded. Patient was on treatment for MSSA and group C strep osteomyelitis of the right foot over the last 6 weeks. Wound culture from bedside debridement this current admission are negative to date. His wound itself appears to be healing well, though bone remains exposed. Possibility of Pseudomonas being a causative organism for the osteomyelitis cannot be excluded as cultures were obtained after few days on antibiotics and ESR remained elevated during the course of treatment this past 6 weeks, however clinically this appears to be less likely. #Effusion of joint of right upper extremity, possible septic arthritis #Osteomyelitis of the right hallux, completed 6 weeks of IV Rocephin for MSSA and group C strep isolated on cultures. His wound remains open with bone exposed, ESR remains elevated, however this may be contributed by current DVT. Wound appears to be healing. His ABIs raise suspicion for lower extremity arterial disease, patient is planned to undergo a CTA with runoff and possible angioplasty for the lower extremities down the line. Likely that poor wound healing is contributed by poor peripheral perfusion. We will transition patient to oral antibiotics for an additional 4 to 6 weeks for while he undergoes other vascular intervention. Is currently on doxycycline which may be contributing. Foot x-ray shows stable osteolysis. Patient wishes to continue all possible limb salvage measures. # ESRD: renally dose all antibiotics # DM with peripheral neuropathy: Management per admitting team Thank you for this consult, will follow up was not completed. Coding Level of Care Code Acute Parachute Cushion Installer for Breanna Aguero Diagnoses Septic thrombophlebitis of upper extremities I80.8 Effusion of glenohumeral joint of right upper extremity M25.411 Septicemia, Pseudomonas A41.52 DVT (deep venous thrombosis) I82.90 Chronicity: acute DVT location: non-extremity vein Diabetic peripheral neuropathy associated with type 2 diabetes mellitus E11.42 Chronic disease anemia D63.8 ESRD (end stage renal disease) N18.6 Osteomyelitis M86.9 Osteomyelitis type: unspecified type Osteomyelitis location: foot Laterality: right
--- NOTE | 2020-10-04 14:45 | PM.OP ---
Operative Report Date of procedure: October 04, 2020 Pre-op Diagnosis: Septic right shoulder Post-op diagnosis: same Post-op Findings: Same Procedure Done: Extensive arthroscopic debridement right shoulder Pathology: none sent Surgeon: Marco Antonio Mendez Anesthesia: General Estimated blood loss (mL): 20 Findings: The patient had a massive tear of his right rotator cuff. He had degenerative changes the exposed cup subchondral bone over his glenoid and humeral head. He had cloudy fluid within the joint however it was much clearer and much fewer degrees and on her aspiration 09/01/2020 Condition: stable Disposition: PACU Brief History: Mr. Bonilla is a 65-year-old male with a right shoulder effusion. Aspiration performed on 10/02/2020 revealed frankly purulent fluid. He had a history of a infection in the left big toe and was previously on IV Rocephin. Cultures from 10/02/2020 were negative. The patient was taken to the operating room for aggressive irrigation and debridement of a presumably incompletely treated septic joint of the right shoulder Procedure: The patient was taken to the operating room and given a general anesthesia. He is positioned in the lateral position with his right arm in 20 pounds of traction. A timeout was performed. Posterior portal was made 2 cm posterior and inferior to the posterior corded acromion. A scope cannula and trocar driven into the glenohumeral joint. The lateral portal was opened up with a scalpel blade. Once in the joint slightly cloudy fluid was identified. The clinical appearance was much better than the appearance of the fluid on the aspiration of 10/02/2020. Massive rotator cuff tear was identified. Exposed subchondral bone over the humeral head and glenoid was identified. An incisor shaver was introduced to the lateral portal and 3 L of fluid irrigated through the shoulder joint. An anterior portal was then localized with a scalpel blade and opened. Through that portal additional debridement was accomplished in the glenohumeral and subacromial space. No necrotic material was identified. Portals were closed with 3-0 Prolene. Sterile dressings were applied. The patient was extubated and taken to recovery room in stable condition.
--- NOTE | 2020-10-04 15:10 | SUR.PHASEI ---
1510- ORAL AIRWAY OUT, SIMPLE MASK AT 6LPM, SAT 98%
[2020-10-04 16:09] LABS: Glucose Point of Care 148 mg/dL (70-110)
[2020-10-04] MEDS: HYDROcodone-acetaminophen 5-325 mg Tablet 1 TAB PO ×2 (16:09→20:33)
--- NOTE | 2020-10-04 16:38 | ANE.PACU2 ---
Inpatient post-anesthesia follow up: Airway intact: Yes Vital signs: Temperature 98.1 F Pulse Rate [Bilate ral Radial] 93 Pulse Rate [Monito r] 86 Pulse Rate 84 Respiratory Rate 16 Blood Pressure [Ri ght Arm] 120/83 Blood Pressure 125/86 Pulse Oximetry 95 Oxygen Delivery Me thod [ Room Air Current Rate & Del jose daniel] Oxygen Delivery Me thod Room Air Oxygen Flow Rate 6 Fraction of Inspir ed Oxygen Hydration adequate: Yes Nausea and vomiting: No Pain level: 2 Mental status: Baseline
[2020-10-04] MEDS: iron polysaccharide complex 150 mg Capsule PO (17:02)
[2020-10-04] MEDS: cloNIDine 0.1 mg Tablet PO (17:02)
[2020-10-04] MEDS: calcium acetate 667 mg Capsule 1334 MG PO (17:03)
--- NOTE | 2020-10-04 17:03 | PM.PN ---
Subjective Subjective: Interval history: Hospital course, labs and vitals noted. On examination patient lying comfortably in bed with at bedside. Patient undergoing peritoneal dialysis. Has remained hemodynamically stable and afebrile in last 24 hours. Denies any nausea, vomiting, headache. States had a restful night. Denies of any pain. Patient is due for OR with orthopedics today for shoulder joint washout. Vitals/I&O/Wt Last Vital Signs Temp 98.1 F 10/04/20 15:15 Pulse 84 10/04/20 15:15 Resp 16 10/04/20 15:15 BP 125/86 10/04/20 15:15 Pulse Ox 95 10/04/20 15:15 10/04/20 10/04/20 10/04/20 06:59 14:59 22:59 Intake Total 4606 / 13102.4 0 / 0 Output Total 5350 / 00724 Balance -744 / -3036.6 -10 / -10 Weight last 48 hrs Weight 138.346 kg Physical Exam Const: COMMON NORMALS: no acute distress, patient oriented x3 and alert GENERAL APPEARANCE: cooperative and comfortable ORIENTATION/CONSCIOUSNESS: Yes awake HENMT: COMMON NORMALS: oropharynx normal Neck/C-Spine: COMMON NORMALS: no JVD Resp: COMMON NORMALS: normal respiratory effort and clear to auscultation bilaterally AUSCULTATION: clear to auscultation bilaterally Cardio: COMMON NORMALS: no JVD, regular rhythm, S1 normal heart sound present, S2 normal heart sound present and No murmurs present (Cardio) RHYTHM: regular rhythm HEART SOUNDS: S1 normal heart sound present and S2 normal heart sound present GI: COMMON NORMALS: Normal to inspection, nondistended, normoactive bowel sounds present, Soft to palpation and non-tender PALPATION: Yes Soft to palpation Extremity: COMMON NORMALS: no joint enlargement GENERAL: Yes edema (2-3+ bilateral lower extremity edema) OTHER: Swelling of RUE decreasing. R shoulder swelling. He is regained quite a bit of mobility especially in the distal arm. Only mild edema currently. No expansion of the wound of R hallux. No drainage. Neuro: COMMON NORMALS: patient oriented x3 and moves all extremities SENSORIUM/ORIENTATION: Yes alert Skin: COMMON NORMALS: no rashes or lesions noted GENERAL SKIN EXAM: no rashes or lesions noted Data : 10/04/20 03:12 10/04/20 03:12 Micro: Microbiology 09/30/20 01:06 Blood Culture - Preliminary Blood Pseudomonas aeruginosa 10/02/20 15:00 Gram Stain - Final Peritoneal Fluid Body Fluid Culture - Preliminary 10/02/20 15:44 Body Fluid Culture - Preliminary Synovial Fluid 09/27/20 00:33 Blood Culture - Final Blood Corynebacterium species 09/27/20 20:22 Blood Culture - Final Blood Pseudomonas aeruginosa A&P Assessment and plan (1) Bacteremia: Status: Acute (2) DVT (deep venous thrombosis): Lovenox discontinued to allow for shoulder procedure. Temporary heparin bridging tonight until midnight. Continue anticoagulation for 3 months after removal of the PICC line. As above, in case of no additional focus of infection seen, and if bacteremia still persists, possible infected thrombus of the right internal jugular vein may need to be considered. Elevate right upper extremity above heart level. Avoid nonessential infusions. Status: Acute Qualifiers: Chronicity: acute DVT location: non-extremity vein Qualified Code(s): I82.90 - Acute embolism and thrombosis of unspecified vein (3) Diabetic foot ulcer associated with type 2 diabetes mellitus: Status: Acute Qualifiers: Diabetic foot ulcer location: toe Laterality: right Non-pressure ulcer stage: with necrosis of muscle Qualified Code(s): E11.621 - Type 2 diabetes mellitus with foot ulcer; L97.513 - Non-pressure chronic ulcer of other part of right foot with necrosis of muscle (4) Osteomyelitis: As above. Status: Acute Qualifiers: Osteomyelitis type: unspecified type Osteomyelitis location: foot Laterality: right Qualified Code(s): M86.9 - Osteomyelitis, unspecified (5) Effusion of glenohumeral joint of right upper extremity: Status: Acute (6) ESRD (end stage renal disease): PD increase due to some worsening edema. Continue torsemide. Appreciate nephrology recommendations. Continue with consistent carbohydrate with high-protein with limitation of dairy/low phosphorus per request. Has left side aVF. If left side access is needed would have to be an IJ PICC. Status: Acute (7) Atrial fibrillation: Continue metoprolol. Oral Cardizem. Continue cardiac monitoring. Status: Acute Qualifiers: Atrial fibrillation type: unspecified Qualified Code(s): I48.91 - Unspecified atrial fibrillation (8) Chronic disease anemia: 1 unit PRBC transfusion received 09/30. Monitor blood counts. Stable for now. Status: Acute (9) DM type 2 (diabetes mellitus, type 2): Sliding scale insulin. Diabetic diet. Lantus 10 units daily. A1c 6.4. Status: Acute Additional A&P Information Sepsis secondary to Pseudomonas bacteremia in setting of diabetic foot ulcer and osteomyelitis: Blood cultures from September 30 and + for Pseudomonas with one blood culture from also positive for Corynebacterium. Quite possible that Corynebacterium as a contaminant. Repeat blood cultures from negative so far. Most likely ultrasound of infection is nonhealing diabetic foot ulcer. Peritoneal fluid negative and Gram stain and no growth on culture so far, no abdominal pain with 36 PMNs so the suspicion of peritonitis is low. CT abdomen pelvis on October 02 - for any additional pockets of infection. Fluid analysis from shoulder joint aspiration only showing 110 WBC so low chances of septic arthritis. Patient to undergo joint washout today. We will follow up cultures. For now continue with oral Levaquin and doxycycline as per the culture results. Continue antibiotics as per the creatinine clearance. We will consult ID for further recommendations. Diabetic foot ulcer: Nonhealing ulcer. Appreciate podiatry recommendations. CTA aorta with runoff possible during this hospitalization because he has underwent contrast today for CT abdomen pelvis along with patient still requiring further work-up for bacteremia. Ultrasound ISAIAH could not be obtained due to noncompressible arteries bilaterally on October 07. TBI also could not be obtained for the same reason. Currently there is no mottling or cyanosis of feet/toes however flow could not be reliably detected in the distal foot/toes Multiple discussions have been made with patient to consider amputation at distal lower extremity to eliminate the persistent portal of entry for additional pathogens and reduce need for additional prolonged therapies thus reducing his exposure to associated potential complications. He states that he has considered amputation and still currently declines and wants to continue current treatment. Right IJ DVT post PICC line: PICC line removed on October 01 after 4 days of anticoagulation. Subsequently line placed after a line holiday on October 02. Patient has been on complete full dose anticoagulation with Lovenox which is switched over to heparin last night for OR today morning. For now we will hold off on any further anticoagulation. Will restart postoperatively. Positive blood culture: Appears to be growing gram-negative rods and culture from 09/27, 09/12 bottles. Will request for repeat blood culture. Continue Rocephin for now. Full code. Carb consistent cardiac diet. Attestations Medical Necessity Statement*: Requires further hospitalization for management of pseudomonal bacteremia, sepsis in setting of diabetic foot ulcer and osteomyelitis, right IJ DVT ,ESRD on peritoneal dialysis Time Spent in Patient Care: Greater than 35 minutes (>than 50% of time spent in counselling and/or direct pt care on unit). Coding Level of Care Code Acute Fur Joiner for [facility] Fwd Diagnoses Bacteremia R78.81 DVT (deep venous thrombosis) I82.90 Chronicity: acute DVT location: non-extremity vein Diabetic foot ulcer associated with type 2 diabetes mellitus E11.621; L97.513 Diabetic foot ulcer location: toe Laterality: right Non-pressure ulcer stage: with necrosis of muscle Osteomyelitis M86.9 Osteomyelitis type: unspecified type Osteomyelitis location: foot Laterality: right Effusion of glenohumeral joint of right upper extremity M25.411 ESRD (end stage renal disease) N18.6 Atrial fibrillation I48.91 Atrial fibrillation type: unspecified Chronic disease anemia D63.8 DM type 2 (diabetes mellitus, type 2) E11.9
--- NOTE | 2020-10-04 17:23 | PC.NURSE ---
Call placed to Dr. Mendez regarding restarting lovenox post operatively. I then called Dr. Sosa to inform him that Dr. Mendez is fine with the hospitalist restarting lovenox.
[2020-10-04] MEDS: enoxaparin 100 mg/mL Syringe SUBCUT (18:24)
[2020-10-04] MEDS: enoxaparin 40 mg/0.4 mL Syringe SUBCUT (18:24)
[2020-10-04 18:56] LABS: Total Protein 5.2 g/dL (6.6-8.7)
[2020-10-04 19:31] LABS: Globulin 3.3 g/dL (1.3-4.6); Total Protein 5.8 g/dL (6.6-8.7)
[2020-10-04] MEDS: losartan 50 mg Tablet 100 MG PO (20:32)
[2020-10-04] MEDS: citalopram 20 mg Tablet PO (20:34)
[2020-10-04] MEDS: insulin glargine 100 units/1 mL 12 UNIT SUBCUT (22:03)
[2020-10-04] MEDS: ergocalciferol (vitamin D2) 50,000 Unit Capsule 50000 UNIT PO (22:47)
[2020-10-04 23:00] LABS: Glucose Point of Care 238 mg/dL (70-110)
[2020-10-05] VITALS (13 sets, daily range): BP systolic 128–183; BP diastolic 53–143; PULSE 81–101; RESP 11–18; TEMP 36.7–37.4; O2SAT 96–99
[2020-10-05] MEDS: HYDROcodone-acetaminophen 5-325 mg Tablet 1 TAB PO ×4 (03:40→20:52)
--- NOTE | 2020-10-05 04:09 | PC.NURSE ---
pt had duplicate orders for Torsemide 100 mg, second order cancelled per Dr Nguyen
[2020-10-05] MEDS: levothyroxine 75 mcg Tablet 150 MCG PO (05:09)
[2020-10-05] MEDS: allopurinol 300 mg Tablet PO (05:10)
[2020-10-05] MEDS: pantoprazole DR 40 mg Tablet PO (05:10)
[2020-10-05] MEDS: atorvastatin 40 mg Tablet 20 MG PO (05:10)
[2020-10-05] MEDS: NON-FORMULARY MEDICATION 100 EACH PO (05:11)
[2020-10-05] MEDS: Dianeal low Ca w/2.5% dex 2,000 mL Bag 2000 ML INTRAPERIT ×4 (05:15→20:14)
[2020-10-05 05:22] LABS: Basophils % 0.2 %; Eosinophils # 0.9 10^3/uL (0.0-0.8); Eosinophils % 6.9 %; Hemoglobin 7.8 g/dL (11.7-16.6); Lymphocytes # 1.3 10^3/uL (0.8-4.8); Lymphocytes % 9.3 %; Mean Corpuscular Hemoglobin 28.5 pg (28.0-34.0); Mean Corpuscular Volume 94.9 fL (80-94); Mean Platelet Volume 9.8 fL (7.4-10.4); Monocytes # 1.3 10^3/uL (0.2-0.9); Monocytes % 9.6 %; Neutrophils # 9.85 10^3/uL (1.8-7.7); Neutrophils % 72.5 %; Nucleated Red Blood Cells % 0 %; Platelet Count 272 10^3/cmm (130-400); Red Blood Count 2.74 10^6/uL (4.1-5.3); Red Cell Distribution Width 17.2 % (12.1-15.1); White Blood Count 13.6 10^3/uL (4.0-10.0)
[2020-10-05 06:10] LABS: Alanine Aminotransferase 24 U/L (0-41); Albumin Level 2.2 g/dL (3.5-5.2); Alkaline Phosphatase 85 IU/L (40-130); Anion Gap 17.2 (5-19); Aspartate Amino Transferase 20 U/L (0-40); Blood Urea Nitrogen 60 mg/dL (8-23); Calcium 8.8 mg/dL (8.5-10.5); Carbon Dioxide 25 mmol/L (22-29); Chloride 97 mmol/L (98-107); Glomerular Filtration Rate 9.1 mL/min (90-130); Glucose 123 mg/dL (65-115); Osmolality Calculated 298 mOsm/kg (285-295); Potassium 4.2 mmol/L (3.5-5.1); Sodium 135 mmol/L (136-145); Total Bilirubin 0.2 mg/dL (0.15-1.2); Total Protein 5.2 g/dL (6.6-8.7)
[2020-10-05 07:07] LABS: Glucose Point of Care 183 mg/dL (70-110)
[2020-10-05] MEDS: cloNIDine 0.1 mg Tablet PO ×2 (08:12→18:32)
[2020-10-05] MEDS: metoprolol tartrate 50 mg Tablet PO ×2 (08:12→18:33)
[2020-10-05] MEDS: hyDRALAzine 50 mg Tablet PO ×3 (08:12→20:51)
[2020-10-05] MEDS: dilTIAZem 60 mg Tablet PO ×3 (08:12→20:51)
[2020-10-05] MEDS: polyethylene glycol 3350 Pkt 17 gm PO (08:13)
[2020-10-05] MEDS: iron polysaccharide complex 150 mg Capsule PO ×2 (08:13→18:33)
[2020-10-05] MEDS: iodixanol 320 mg/mL 100mL Btl IV (08:43)
--- NOTE | 2020-10-05 08:54 | PC.NURSE ---
patient transferred to [facility] after Ct patient alert oriented and in stable conditions all belongings with patient
--- NOTE | 2020-10-05 09:00 | CT_ITS ---
WS: [id number] CTA ABDOMINAL AORTA WITH RUNOFF TECHNIQUE: Contrast enhanced CTA of the abdominal aorta with bilateral lower extremity runoff. Multip lanar reformatted images were obtained. MIP reformats were also reviewed. CLINICAL INFORMATION: Runoff to RLE for PAD. Non-healing wound R hallux COMPARISON: None. DLP: 2452.[address] scans at [facility] use at least one of these dose optimization techniques: automat ed exposure control; mA and/or kV adjustment per patient size (includes targeted exams where dose is matched to clinical indication); or iterative reconstruction. FINDINGS: Somewhat poor contrast opacification limits examination. Peritoneal dialysis catheter in the lower pelvis. Diffuse abdominal wall anasarca. Mild ascites. Vica rious excretion of contrast in the gallbladder. Normal caliber abdominal aorta. No abdominal aortic a neurysm. Adrenal glands are normal. No hydronephrosis. Bilateral TKAs limits evaluation of the poplit eal fossa. Chronic L5 spondylolysis. RIGHT: Right common iliac artery is patent. External and internal iliac arteries appear patent. Right common femoral artery appears patent. Superficial femoral artery appears patent with mild segmental narrowing. Mild stenosis of the popliteal artery origin. Popliteal artery appears patent in the popli teal fossa. Heavily calcified calf arteries with poor 3 vessel runoff. LEFT: Left common iliac and external iliac arteries appear patent. Common femoral and superficial fem oral arteries are heavily calcified but appear patent. Popliteal artery is patent in the popliteal fo ssa. Dense calcification in the distal popliteal artery with heavily calcified calf arteries with poo r flow. CT/CT angio abd aorta runof [id number] IMPRESSION: 1. Poor contrast opacification and dense diffuse arterial calcification limits evaluation. 2. Distal peripheral atherosclerotic disease with heavily calcified arteries b ilaterally. 3. Heavily calcified Calf arteries with poor runoff to both lower extremities bilaterally. 4. No abdominal aortic aneurysm. 5. Diffuse abdominal wall anasarca with mild ascites. 6. Mild ascites.
--- NOTE | 2020-10-05 10:32 | P.PN_ITS ---
Subjective Subjective: Interval history: No new issues, postop day 1 from arthroscopy and washout of right shoulder. Some slight soreness, however, it does feel better for him. PD is going well, with clear effluent, painless exchanges, easy flow in and out. Lower extremity edema slightly better since starting torsemide yesterday. No shortness of breath/PND etc. No uremic symptoms. Medications: Reviewed: Yes Vitals/I&O/Wt Last Vital Signs Temp 99.3 F 10/05/20 08:46 Pulse 96 10/05/20 08:46 Resp 18 10/05/20 08:46 BP 182/83 10/05/20 08:46 Pulse Ox 98 10/05/20 08:46 10/04/20 10/05/20 10/05/20 22:59 06:59 14:59 Intake Total 4000 / 6000 200 / 6200 2000 / 2000 Output Total 4630 / 6330 500 / 6830 1700 / 1700 Balance -630 / -330 -300 / -630 300 / 300 Weight last 48 hrs Weight 138.346 kg Physical Exam Narrative: EXAM NARRATIVE: Constitutional: Awake, comfortable HEENT: Wet mucosa, no jvp, non icteric Lungs: Bilaterally clear without discernible wheeze, rales in all lung zones CVS: S1 S2, no murmurs Abdo: Soft, BS ok Ext 4: RUE edematous, 1-2+ in Lower edema, peripheral perfusion with no cyanosis Neurological: Grossly non-focal Data : 10/05/20 04:38 10/05/20 04:38 Micro: Microbiology 09/30/20 01:06 Blood Culture - Preliminary Blood Pseudomonas aeruginosa 10/02/20 15:00 Gram Stain - Final Peritoneal Fluid Body Fluid Culture - Preliminary 10/02/20 15:44 Body Fluid Culture - Preliminary Synovial Fluid A&P Additional A&P Information 1. ESRD on PD. CAPD in-house, 2 L, 2.5%, 5xdaily We will adjust PD prescription accordingly during his hospitalization, however, he did well this last admission. Dose medications for GFR less than 15 on PD. 2. Right upper extremity DVT, adjacent to PICC. Management per medical team, currently on heparin infusion. 3. ID issues MSSA osteomyelitis, outpatient he was on IV Rocephin Pseudomonas bacteremia, concern for septic arthropathy of the right shoulder, POD 1 arthroscopy and washout Doxycycline and LEvaquin on board 4. Hemodynamics. Blood pressure looks good 5. Anemia. Iron sat low on Ferrex, s/p EPO dosing 6. Hyperphosphatemia. 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
[2020-10-05 11:13] LABS: Glucose Point of Care 228 mg/dL (70-110)
[2020-10-05] MEDS: calcium acetate 667 mg Capsule 1334 MG PO ×3 (11:28→18:36)
[2020-10-05] MEDS: doxycycline 100 mg Tablet PO (11:29)
--- NOTE | 2020-10-05 12:35 | PM.PN ---
Subjective Subjective: Interval history: Patient seen bedside this morning, transfer to [facility] states he is doing well, denies any specific complaints. Patient denies any subjective nausea, vomiting, fever, chills, shortness of breath or chest pain. Vitals/I&O/Wt Last Vital Signs Temp 98.6 F 10/05/20 11:06 Pulse 85 10/05/20 11:06 Resp 18 10/05/20 11:06 BP 156/82 10/05/20 11:06 Pulse Ox 98 10/05/20 11:06 10/04/20 10/05/20 10/05/20 22:59 06:59 14:59 Intake Total 4000 / 6000 200 / 6200 2000 / 2000 Output Total 4630 / 6330 500 / 6830 1700 / 1700 Balance -630 / -330 -300 / -630 300 / 300 Weight last 48 hrs Weight 305 lb Physical Exam Narrative: EXAM NARRATIVE: Patient is alert and oriented ?3 and in no acute distress. The following is a focused lower extremity exam. VASCULAR: Dorsalis pedis and posterior tibial arteries palpable +1 bilaterally. Capillary refill time less than 5 seconds to the distal hallux bilaterally. Calf is supple and nontender proximally and distally. Diminished hair growth at legs and feet bilaterally, no hair growth appreciated to the level to dorsal toes. +1 pitting edema to the lower extremities. Palpable +1 popliteal artery bilaterally. NEUROLOGICAL: Protective sensation intact 0/10 sites, tested with Gilchrist Sergei monofilament to bilateral feet. DERMATOLOGICAL: Wound to the medial aspect of the right first metatarsal phalangeal joint measures wound measurements 4.5 cm x 3.0 cm x 0.4 cm, no purulent drainage, no periwound erythema, no malodor. No proximal lymphangitic streaking. Wound is exposed to bone able to visualize the proximal and distal phalanx of the right hallux. Hyper granulation at the proximal portion of the wound. MUSCULOSKELETAL: Muscle strength is 5 out of 5 in all 3 cardinal planes to bilateral foot and ankle. Pes planus foot type bilaterally. Ankle joint dorsiflexion is to neutral bilaterally. Reducible hammertoe deformities 2 through 5 bilaterally. Mild hallux abductovalgus deformity bilaterally, hallux is not track bound. Data : 10/05/20 04:38 10/05/20 04:38 Micro: Microbiology 09/30/20 01:06 Blood Culture - Preliminary Blood Pseudomonas aeruginosa 10/02/20 15:00 Gram Stain - Final Peritoneal Fluid Body Fluid Culture - Preliminary 10/02/20 15:44 Body Fluid Culture - Preliminary Synovial Fluid A&P Assessment and plan (1) Diabetic peripheral neuropathy associated with type 2 diabetes mellitus: Status: Acute (2) ESRD (end stage renal disease): Status: Acute (3) Non-pressure chronic ulcer of other part of right foot with necrosis of bone: Status: Acute Mr. Bonilla is a 65-year-old male with osteomyelitis of the right hallux completing 6 weeks of IV antibiotics, 2 g of Rocephin infused daily via PICC line. Acute DVT of the right jugular, recommend infectious disease consultation as to discontinuing PICC line and potentially switching to oral antibiotics, appreciate infectious disease input in regards to this. Bone biopsy taken intraoperatively on 08/15/20 demonstrated no growth likely due to suppression as he was receiving empiric antibiotics prior to the procedure for several days. Wound bed culture taken 08/11/20 demonstrated strep G as well as staph aureus. Performed excisional debridement of nonviable epidermis, dermis, subcutaneous tissue down to and including fat layer, muscle and deep fascia of the right hallux wound, wound is clinically stable at this time without cellulitis, erythema or purulent drainage. -Performed dressing change, Iodosorb gel and Optifoam dressing. -Patient may ambulate as tolerated with postop shoe to the right foot. Elevate right foot while at rest -Repeat x-ray shows stable postoperative changes no further osteolysis. -ABIs unable to be obtained due to noncompressible vessels, waveforms shows normal amplitude with loss of dicrotic notch. -CT angio abdominal aorta with runoff shows poor three-vessel runoff at the right lower extremity and heavy calcification in the left distal popliteal artery. -Patient is adamant to continue limb salvage, from my perspective he has poor healing potential however his wound is stable and limb salvage could be pursued would require continued infection control, recommend close collaboration with infectious disease, appreciate Dr. Roxann wallace, currently on doxycycline twice daily 100 mg and levofloxacin 750 mg every other day. Blood culture positive for Pseudomonas during this hospitalization. -Recommend vascular consultation. Patient surprisingly does continue to form granulation tissue at the wound, given his medical picture I am guarded on his ability to heal. I am also concerned with amputation of the hallux not healing at the amputation site due to underlying arterial disease that would put him at risk for higher level of amputation. I have spoken with him about hallux amputation he continues to remain adamant against this and wishes to continue with limb salvage. -Podiatry will continue to follow while he is inpatient. Attestations Medical Necessity Statement*: Osteomyelitis right hallux Coding Level of Care Code Acute Organizational Research Consultant for [facility] More Diagnoses Diabetic peripheral neuropathy associated with type 2 diabetes mellitus E11.42 ESRD (end stage renal disease) N18.6 Non-pressure chronic ulcer of other part of right foot with necrosis of bone L97.514
--- NOTE | 2020-10-05 12:45 | XR_ITS ---
WS: [id number] Exam: XR foot RT min 3V* [id number] Date/Time of Exam: 10/05/2020 12:48 PM Reason For Exam: Routine serial x-ray for monitoring of surgical site Comparison to the latest study 09/29/2020. The base of the proximal phalanx of the great toe is been surgically excised and is unchanged in appe arance. There appears to be a skin ulcer along the medial aspect of the first MP joint. There also ap pears to be minimal bone destruction involving the medial aspect of the distal first metatarsal. Old nonunion fracture at the base of the fifth metatarsal again noted. Degenerative changes in the mid fo ot joints suggesting Charcot joint. Degenerative changes. XR/XR foot RT min 3V* [id number] IMPRESSION: 1. Stable-appearing excision of the base of the proximal phalanx of the great t oe with associated skin ulceration. There also appears to be a minimal cortical bone destruction along the medial aspect of the distal first metatarsal. This may represent osteomyelitis involvement. 2. Additional chronic findings of the foot as detailed above.
--- NOTE | 2020-10-05 13:03 | P.PN_ITS ---
Subjective Subjective: Interval history: Adequate control of right shoulder pain Vitals/I&O/Wt Last Vital Signs Temp 98.6 F 10/05/20 11:06 Pulse 85 10/05/20 11:06 Resp 18 10/05/20 11:06 BP 156/82 10/05/20 11:06 Pulse Ox 98 10/05/20 11:06 10/04/20 10/05/20 10/05/20 22:59 06:59 14:59 Intake Total 4000 / 6000 200 / 6200 2240 / 2240 Output Total 4630 / 6330 500 / 6830 1700 / 1700 Balance -630 / -330 -300 / -630 540 / 540 Weight last 48 hrs Weight 305 lb Physical Exam Narrative: EXAM NARRATIVE: Right arthroscopy portals clean and dry Data : 10/05/20 04:38 10/05/20 04:38 Micro: Microbiology 09/30/20 01:06 Blood Culture - Preliminary Blood Pseudomonas aeruginosa 10/02/20 15:00 Gram Stain - Final Peritoneal Fluid Body Fluid Culture - Preliminary 10/02/20 15:44 Body Fluid Culture - Preliminary Synovial Fluid A&P Assessment and plan (1) Septic joint of right shoulder region: Status: Acute (2) Postoperative state: May continue to work on range of motion with therapy. He has degenerative changes of the shoulder as well as massive rotator cuff tearing. I would not anticipate functional use of the shoulder. Could require reverse total shoulder at a later date. Need follow-up in 2 weeks for stitch removal. Status: Acute Attestations Medical Necessity Statement*: As per medicine Coding Level of Care Code Acute Solar Process Engineer for Breanna Aguero Diagnoses Septic joint of right shoulder region M00.9 Postoperative state Z98.890
--- NOTE | 2020-10-05 15:00 | P.PN_ITS ---
Subjective Subjective: Interval history: No acute events overnight. Patient has remained hemodynamically stable and afebrile. Denies any nausea, vomiting, headache. Move to second floor today. During examination patient just came back from shower. States her shoulder pain is better. Vitals/I&O/Wt Last Vital Signs Temp 98.6 F 10/05/20 11:06 Pulse 85 10/05/20 11:06 Resp 18 10/05/20 11:06 BP 156/82 10/05/20 11:06 Pulse Ox 98 10/05/20 11:06 10/05/20 10/05/20 10/05/20 06:59 14:59 22:59 Intake Total 200 / 6200 2240 / 2240 Output Total 500 / 6830 1700 / 1700 Balance -300 / -630 540 / 540 Weight last 48 hrs Weight 138.346 kg Physical Exam Const: COMMON NORMALS: no acute distress, patient oriented x3 and alert GENERAL APPEARANCE: cooperative and comfortable ORIENTATION/CONSCIOUSNESS: Yes awake HENMT: COMMON NORMALS: oropharynx normal Neck/C-Spine: COMMON NORMALS: no JVD Resp: COMMON NORMALS: normal respiratory effort and clear to auscultation bilaterally AUSCULTATION: clear to auscultation bilaterally Cardio: COMMON NORMALS: no JVD, regular rhythm, S1 normal heart sound present, S2 normal heart sound present and No murmurs present (Cardio) RHYTHM: regular rhythm HEART SOUNDS: S1 normal heart sound present and S2 normal heart sound present GI: COMMON NORMALS: Normal to inspection, nondistended, normoactive bowel sounds present, Soft to palpation and non-tender PALPATION: Yes Soft to palpation Extremity: COMMON NORMALS: no joint enlargement GENERAL: Yes edema (2-3+ bilateral lower extremity edema) OTHER: Swelling of RUE decreasing. R shoulder swelling. He is regained quite a bit of mobility especially in the distal arm. Only mild edema currently. No expansion of the wound of R hallux. No drainage. Neuro: COMMON NORMALS: patient oriented x3 and moves all extremities SENSORIUM/ORIENTATION: Yes alert Skin: COMMON NORMALS: no rashes or lesions noted GENERAL SKIN EXAM: no rashes or lesions noted Data : 10/05/20 04:38 10/05/20 04:38 Micro: Microbiology 09/30/20 14:12 Blood Culture - Final Blood NO GROWTH AFTER 5 DAYS 01/21/21 01:06 Blood Culture - Preliminary Blood Pseudomonas aeruginosa A&P Assessment and plan (1) Bacteremia: Pseudomonas on September 30 and Corynebacterium 1 out of 4 sets. Repeat blood cultures have remained negative so far. Status: Acute (2) DVT (deep venous thrombosis): Lovenox discontinued to allow for shoulder procedure. Temporary heparin bridging tonight until midnight. Continue anticoagulation for 3 months after removal of the PICC line. As above, in case of no additional focus of infection seen, and if bacteremia still persists, possible infected thrombus of the right internal jugular vein may need to be considered. Elevate right upper extremity above heart level. Avoid nonessential infusions. Status: Acute Qualifiers: Chronicity: acute DVT location: non-extremity vein Qualified Code(s): I82.90 - Acute embolism and thrombosis of unspecified vein (3) Diabetic foot ulcer associated with type 2 diabetes mellitus: Status: Acute Qualifiers: Diabetic foot ulcer location: toe Laterality: right Non-pressure ulcer stage: with necrosis of muscle Qualified Code(s): E11.621 - Type 2 diabetes mellitus with foot ulcer; L97.513 - Non-pressure chronic ulcer of other part of right foot with necrosis of muscle (4) Osteomyelitis: As above. Status: Acute Qualifiers: Osteomyelitis type: unspecified type Osteomyelitis location: foot Laterality: right Qualified Code(s): M86.9 - Osteomyelitis, unspecified (5) Effusion of glenohumeral joint of right upper extremity: Status: Acute (6) ESRD (end stage renal disease): PD increase due to some worsening edema. Continue torsemide. Appreciate nephrology recommendations. Continue with consistent carbohydrate with high-protein with limitation of dairy/low phosphorus per request. Has left side aVF. If left side access is needed would have to be an IJ PICC. Status: Acute (7) Atrial fibrillation: Continue metoprolol. Oral Cardizem. Continue cardiac monitoring. Status: Acute Qualifiers: Atrial fibrillation type: unspecified Qualified Code(s): I48.91 - Unspecified atrial fibrillation (8) Chronic disease anemia: 1 unit PRBC transfusion received 09/30. Monitor blood counts. Stable for now. Status: Acute (9) DM type 2 (diabetes mellitus, type 2): Sliding scale insulin. Diabetic diet. Lantus 10 units daily. A1c 6.4. Status: Acute Additional A&P Information Sepsis secondary to Pseudomonas bacteremia in setting of diabetic foot ulcer and osteomyelitis: Blood cultures from September 30 and + for Pseudomonas with one blood culture from also positive for Corynebacterium. Quite possible that Corynebacterium as a contaminant. Repeat blood cultures from negative so far. Most likely source of infection is nonhealing diabetic foot ulcer. Peritoneal fluid negative and Gram stain and no growth on culture so far, no abdominal pain with 36 PMNs so the suspicion of peritonitis is low. CT abdomen pelvis on October 02 - for any additional pockets of infection. Fluid analysis from shoulder joint aspiration only showing 110 WBC so low chances of septic arthritis. We will follow up cultures from the OR. For now continue with oral Levaquin and doxycycline as per the culture results. Continue antibiotics as per the creatinine clearance. ID, orthopedic recommendations appreciated. Diabetic foot ulcer: Nonhealing ulcer. Appreciate podiatry recommendations. Peripheral arterial disease: Most likely because of persistent nonhealing ulcer. CTA aorta with runoff done today consistent with distal peripheral atherosclerotic disease with heavy calcification in the arteries bilaterally with poor runoff to both lower extremities. We will discussed the CT results with Dr. Jaime from cardiology and await further recommendations. Currently there is no mottling or cyanosis of feet/toes however flow could not be reliably detected in the distal foot/toes Multiple discussions have been made with patient to consider amputation at distal lower extremity to eliminate the persistent portal of entry for additional pathogens and reduce need for additional prolonged therapies thus r educing his exposure to associated potential complications. He states that he has considered amputation and still currently declines and wants to continue current treatment. Right IJ DVT post PICC line: Continue with full dose Lovenox as per creatinine clearance for now. Most likely will switch him over to Eliquis on discharge. He will need Eliquis 10 mg twice daily for 7 days followed by 5 mg twice daily for at least 3 months since PICC line removal. Full code. Carb consistent cardiac diet. Attestations Medical Necessity Statement*: Requires further hospitalization for management of Pseudomonas bacteremia in setting of nonhealing diabetic ulcer and peripheral arterial disease. Time Spent in Patient Care: Greater than 35 minutes (>than 50% of time s pent in counselling and/or direct pt care on unit) . Coding Level of Care Code Acute Mastic Worker for [facility] Fwd Diagnoses Bacteremia R78.81 DVT (deep venous thrombosis) I82.90 Chronicity: acute DVT location: non-extremity vein Diabetic foot ulcer associated with type 2 diabetes mellitus E11.621; L97.513 Diabetic foot ulcer location: toe Laterality: right Non-pressure ulcer stage: with necrosis of muscle Osteomyelitis M86.9 Osteomyelitis type: unspecified type Osteomyelitis location: foot Laterality: right Effusion of glenohumeral joint of right upper extremity M25.411 ESRD (end stage renal disease) N18.6 Atrial fibrillation I48.91 Atrial fibrillation type: unspecified Chronic disease anemia D63.8 DM type 2 (diabetes mellitus, type 2) E11.9
--- NOTE | 2020-10-05 16:59 | PM.PN ---
Subjective Subjective: Interval history: Infectious disease progress note Complains of right shoulder pain after surgery, right upper extremity edema nearly resolved, denies any new complaints Medications: Reviewed: Yes Medication Review Details: Current Medications Acetaminophen (Acetaminophen 500 Mg Tablet) 1,000 mg PO PRN [facility] Last Admin: 10/06/20 03:29 Dose: 1,000 mg Documented by: Hydrocodone Bitart/Acetaminophen (Hydrocodone-Acetaminophen 5-325 Mg Tablet) 1 tab PO Q4H PRN PRN Reason: MODERATE PAIN Last Admin: 10/07/20 09:59 Dose: 1 tab Documented by: Amoxicillin/Clavulanate Potassium (Amoxicillin-Clav 500-125 Mg Tablet) 1 tab PO BID [facility]; Protocol Last Admin: 10/07/20 08:23 Dose: 1 tab Documented by: Atorvastatin Calcium (Atorvastatin 40 Mg Tablet) 20 mg PO QAM [facility] Last Admin: 10/07/20 05:18 Dose: 20 mg Documented by: Calcium Acetate (Calcium Acetate 667 Mg Capsule) 1,334 mg PO TIDWM [facility] Last Admin: 10/07/20 08:23 Dose: 1,334 mg Documented by: Citalopram Hydrobromide (Citalopram 20 Mg Tablet) 20 mg PO BEDTIME [facility] Last Admin: 10/06/20 20:22 Dose: 20 mg Documented by: Clonidine HCl (Clonidine 0.1 Mg Tablet) 0.1 mg PO BID [facility] Last Admin: 10/07/20 08:23 Dose: 0.1 mg Documented by: Cyclobenzaprine HCl (Cyclobenzaprine 10 Mg Tablet) 5 mg PO Q8H PRN PRN Reason: muscle spasms Last Admin: 10/06/20 20:32 Dose: 5 mg Documented by: Dextrose (Dextrose 50% Syringe 50 Ml) 25 ml IVP ONCE PRN; Protocol PRN Reason: hypoglycemia protocol Dextrose (Dextrose 50% Syringe 50 Ml) 50 ml IVP PRN PRN; Protocol PRN Reason: hypoglycemia protocol Diltiazem HCl (Diltiazem 60 Mg Tablet) 60 mg PO TID [facility] Last Admin: 10/07/20 08:23 Dose: 60 mg Documented by: Enoxaparin Sodium (Enoxaparin 100 Mg/Ml Syringe) 100 mg SUBCUT Q24H [facility] Last Admin: 10/06/20 17:33 Dose: 100 mg Documented by: Enoxaparin Sodium (Enoxaparin 40 Mg/0.4 Ml Syringe) 40 mg SUBCUT Q24H [facility] Last Admin: 10/06/20 17:33 Dose: 40 mg Documented by: Ergocalciferol (Ergocalciferol (Vitamin D2) 50,000 Unit Capsule) 50,000 unit PO Q7D [facility] Last Admin: 10/04/20 22:47 Dose: 50,000 unit Documented by: Gentamicin Sulfate (Gentamicin 0.1% Cream 15 Gm) 1 applic TOPICAL DAILY [facility] Last Admin: 10/07/20 10:01 Dose: 1 applic Documented by: Glucagon (Glucagon 1 Mg/Ml Inj 1 Ml) 1 mg IM ONCE PRN; Protocol PRN Reason: Adult Acute Hypoglycemia Prot. Hydralazine HCl (Hydralazine 50 Mg Tablet) 50 mg PO TID [facility] Last Admin: 10/07/20 08:24 Dose: 50 mg Documented by: Dextrose (D5w) 500 mls @ 100 mls/hr IV ONCE PRN; Protocol PRN Reason: Adult Acute Hypoglycemia Prot Insulin Aspart (Insulin Aspart 100 Unit/1 Ml) 0 unit SUBCUT WM&BEDTIME [facility]; Protocol Last Admin: 10/07/20 08:22 Dose: 6 unit Documented by: Insulin Glargine (Insulin Glargine 100 Units/1 Ml) 12 unit SUBCUT BEDTIME [facility] Last Admin: 10/06/20 20:27 Dose: 12 unit Documented by: Levofloxacin (Levofloxacin 750 Mg Tablet) 750 mg PO EVERY OTHER DAY [facility]; Protocol Last Admin: 10/06/20 08:40 Dose: 750 mg Documented by: Levothyroxine Sodium (Levothyroxine 75 Mcg Tablet) 150 mcg PO QAM [facility] Last Admin: 10/07/20 05:25 Dose: 150 mcg Documented by: Losartan Potassium (Losartan 50 Mg Tablet) 100 mg PO BEDTIME [facility] Last Admin: 10/06/20 20:22 Dose: 100 mg Documented by: Metoprolol Tartrate (Metoprolol Tartrate 50 Mg Tablet) 50 mg PO BID [facility] Last Admin: 10/07/20 08:24 Dose: 50 mg Documented by: Non-Formulary Medication (Paricalcitol [Zemplar]) 1 mcg PO QAM [facility] Last Admin: 10/07/20 06:16 Dose: Not Given Documented by: Non-Formulary Medication (Renal Factor Plus) 1 tab PO QAM [facility] Last Admin: 10/07/20 06:16 Dose: Not Given Documented by: Non-Formulary Medication (Iodosorb (Cadexomer Iodine Gel)) 1 each TOPICAL DAILY [facility] Last Admin: 10/07/20 10:01 Dose: 1 each Documented by: Non-Formulary Medication (Non-Formulary Medication) 100 each PO QAM [facility] Last Admin: 10/07/20 05:18 Dose: 100 each Documented by: Pantoprazole Sodium (Pantoprazole Dr 40 Mg Tablet) 40 mg PO QAM [facility] Last Admin: 10/07/20 05:18 Dose: 40 mg Documented by: Peritoneal Dialysis Solution (Dianeal Low Ca W/2.5% Dex 2,000 Ml Bag) 2,000 ml INTRAPERIT 5XD [facility] Last Admin: 10/07/20 10:04 Dose: 2,000 ml Documented by: Polyethylene Glycol (Polyethylene Glycol 3350 Pkt 17 Gm) 17 gm PO BID [facility] Last Admin: 10/07/20 08:22 Dose: 17 gm Documented by: Polysaccharide Iron Complex (Iron Polysaccharide Complex 150 Mg Capsule) 150 mg PO BID [facility] Last Admin: 10/07/20 08:24 Dose: 150 mg Documented by: Vitals/I&O/Wt Last Vital Signs Temp 98.1 F 10/07/20 14:47 Pulse 91 10/07/20 14:47 Resp 17 10/07/20 14:47 BP 106/72 10/07/20 14:47 Pulse Ox 98 10/07/20 14:47 10/07/20 10/07/20 10/07/20 06:59 14:59 22:59 Intake Total 500 / 1340 600 / 600 Output Total 2200 / 2200 Balance 500 / 1340 -1600 / -1600 Weight last 48 hrs Weight 907.185 kg Weight 143.335 kg Weight 142.519 kg Physical Exam Narrative: EXAM NARRATIVE: GEN: Awake, alert and oriented, no acute distress HEENT pallor present CVS: S1S2 N RS: CTA B/L Abd: Soft, nt/nd , bs+ MISSILE MECHANIC: no focal neuro deficits Extremities: Right lower extremity open ulceration over hallux, healthy granulation tissue at base Data : 10/07/20 04:35 10/07/20 04:35 Micro: Microbiology 10/02/20 10:30 Blood Culture - Final Blood NO GROWTH AFTER 5 DAYS 10/02/20 10:24 Blood Culture - Final Blood NO GROWTH AFTER 5 DAYS 09/30/20 01:06 Blood Culture - Final Blood Pseudomonas aeruginosa A&P Assessment and plan (1) Septic thrombophlebitis of upper extremities: Status: Acute (2) Effusion of glenohumeral joint of right upper extremity: Status: Acute (3) Septicemia, Pseudomonas: Status: Acute (4) DVT (deep venous thrombosis): Status: Acute Qualifiers: Chronicity: acute DVT location: non-extremity vein Qualified Code(s): I82.90 - Acute embolism and thrombosis of unspecified vein (5) Diabetic peripheral neuropathy associated with type 2 diabetes mellitus: Status: Acute (6) Chronic disease anemia: Status: Acute (7) ESRD (end stage renal disease): Status: Acute (8) Osteomyelitis: Status: Acute Qualifiers: Osteomyelitis type: unspecified type Osteomyelitis location: foot Laterality: right Qualified Code(s): M86.9 - Osteomyelitis, unspecified Additional A&P Information 65 year old male with PMH DM2, gout, peripheral neuropathy, HTN, CKD on PD with Right foot osteomyelitis for which he is completing 6 weeks of iv ceftriaxone presented on 09/27 with RUE swelling, right shoulder jpoint swelling, found to have partial RIJ DVT and septic thrombophlebitis with Blood cx positive for Pseudomonas aeruginosa #Septic thrombophlebitis from right IJ DVT, associated with PICC line Blood culture positive for Pseudomonas aeruginosa on 09/27 and 09/30 Blood culture clear as of 10/03/2020 PICC line removed 10/01 after appropriate anticoagulation Clot burden appears to be decreasing on serial venous Duplex CT chest abdomen pelvis without signs of distal embolization Currently on treatment with Levofloxacin which is renally dosed Levofloxacin is chosen over IV cefepime or IV pip/tazo as patient does not currently have a good means of IV access. Right IJ has DVT. Left arm has AV fistula therefore not a candidate for PICC on the side. Counting from October 03, will plan for 4 to 6-week course of directed antibiotic treatment for endovascular infection with an aggressive organism. Unclear source Pseudomonas in the bloodstream. Patient recently had steroid injections into bilateral shoulders, PD site without overt signs of infection, peritoneal culture negative to date. Right shoulder joint was noted to be swollen, aspirate was turbid appearing, however Gram stain and cultures remain negative from this joint. Likely that this is related to rotator cuff tear and effusion of the glenohumeral joint, however septic arthritis cannot be completely excluded. Patient was on treatment for MSSA and group C strep osteomyelitis of the right foot over the last 6 weeks. Wound culture from bedside debridement this current admission are negative to date. His wound itself appears to be healing well, though bone remains exposed. Possibility of Pseudomonas being a causative organism for the osteomyelitis cannot be excluded as cultures were obtained after few days on antibiotics and ESR remained elevated during the course of treatment this past 6 weeks, however clinically this appears to be less likely. #Effusion of joint of right upper extremity, possible septic arthritis #Osteomyelitis of the right hallux, completed 6 weeks of IV Rocephin for MSSA and group C strep isolated on cultures. His wound remains open with bone exposed, ESR remains elevated, however this may be contributed by current DVT. Wound appears to be healing. His ABIs raise suspicion for lower extremity arterial disease, patient is planned to undergo a CTA with runoff and possible angioplasty for the lower extremities down the line. Likely that poor wound healing is contributed by poor peripheral perfusion. We will transition patient to oral antibiotics for an additional 4 to 6 weeks for while he undergoes other vascular intervention. Is currently on doxycycline, switch to Augmentin renally dosed to 500-125 per pharmacy recommendations, this will permit better coverage for streptococcus and anerobes as well. # ESRD: renally dose all antibiotics # DM with peripheral neuropathy: Management per admitting team Thank you for this consult, will follow Attestations Medical Necessity Statement*: per admitting team note Coding Level of Care Code Acute Basin Operator for Breanna Aguero Diagnoses Septic thrombophlebitis of upper extremities I80.8 Effusion of glenohumeral joint of right upper extremity M25.411 Septicemia, Pseudomonas A41.52 DVT (deep venous thrombosis) I82.90 Chronicity: acute DVT location: non-extremity vein Diabetic peripheral neuropathy associated with type 2 diabetes mellitus E11.42 Chronic disease anemia D63.8 ESRD (end stage renal disease) N18.6 Osteomyelitis M86.9 Osteomyelitis type: unspecified type Osteomyelitis location: foot Laterality: right
[2020-10-05 17:12] LABS: Glucose Point of Care 205 mg/dL (70-110)
[2020-10-05] MEDS: enoxaparin 100 mg/mL Syringe SUBCUT (18:34)
[2020-10-05] MEDS: enoxaparin 40 mg/0.4 mL Syringe SUBCUT (18:34)
[2020-10-05 20:10] LABS: Glucose Point of Care 186 mg/dL (70-110)
[2020-10-05] MEDS: citalopram 20 mg Tablet PO (20:51)
[2020-10-05] MEDS: losartan 50 mg Tablet 100 MG PO (20:52)
[2020-10-05] MEDS: insulin glargine 100 units/1 mL 12 UNIT SUBCUT (20:54)
[2020-10-06] VITALS (13 sets, daily range): BP systolic 112–132; BP diastolic 64–84; PULSE 72–105; RESP 16–18; TEMP 36.6–36.8; O2SAT 97–98
[2020-10-06] MEDS: HYDROcodone-acetaminophen 5-325 mg Tablet 1 TAB PO ×5 (01:16→22:35)
[2020-10-06] MEDS: Dianeal low Ca w/2.5% dex 2,000 mL Bag 2000 ML INTRAPERIT ×5 (03:15→22:42)
[2020-10-06] MEDS: acetaminophen 500 mg Tablet 1000 MG PO (03:29)
[2020-10-06] MEDS: levothyroxine 75 mcg Tablet 150 MCG PO (05:33)
[2020-10-06] MEDS: pantoprazole DR 40 mg Tablet PO (05:33)
[2020-10-06] MEDS: atorvastatin 40 mg Tablet 20 MG PO (05:33)
[2020-10-06] MEDS: allopurinol 300 mg Tablet PO (05:34)
[2020-10-06] MEDS: NON-FORMULARY MEDICATION 100 EACH PO (05:35)
[2020-10-06 06:40] LABS: Glucose Point of Care 211 mg/dL (70-110)
[2020-10-06] MEDS: cloNIDine 0.1 mg Tablet PO ×2 (08:39→17:34)
[2020-10-06] MEDS: dilTIAZem 60 mg Tablet PO ×3 (08:39→20:22)
[2020-10-06] MEDS: polyethylene glycol 3350 Pkt 17 gm PO ×2 (08:39→17:34)
[2020-10-06] MEDS: calcium acetate 667 mg Capsule 1334 MG PO ×3 (08:40→17:34)
[2020-10-06] MEDS: metoprolol tartrate 50 mg Tablet PO ×2 (08:40→17:34)
[2020-10-06] MEDS: iron polysaccharide complex 150 mg Capsule PO ×2 (08:40→17:34)
[2020-10-06] MEDS: levoFLOXacin 750 mg Tablet PO (08:40)
[2020-10-06] MEDS: hyDRALAzine 50 mg Tablet PO ×3 (08:41→20:22)
[2020-10-06] MEDS: amoxicillin-clav 500-125 mg Tablet 1 TAB PO ×2 (09:08→17:36)
--- NOTE | 2020-10-06 09:42 | PM.PN ---
Subjective Subjective: Interval history: feels better. no n/v/f/c/bhakta/d/sob. dec leg edema. Medications: Reviewed: Yes Medication Review Details: Current Medications Acetaminophen (Acetaminophen 500 Mg Tablet) 1,000 mg PO PRN [facility] Last Admin: 10/06/20 03:29 Dose: 1,000 mg Documented by: Hydrocodone Bitart/Acetaminophen (Hydrocodone-Acetaminophen 5-325 Mg Tablet) 1 tab PO Q4H PRN PRN Reason: MODERATE PAIN Last Admin: 10/06/20 09:20 Dose: 1 tab Documented by: Allopurinol (Allopurinol 300 Mg Tablet) 300 mg PO QAM [facility] Last Admin: 10/06/20 05:34 Dose: 300 mg Documented by: Amoxicillin/Clavulanate Potassium (Amoxicillin-Clav 500-125 Mg Tablet) 1 tab PO BID [facility]; Protocol Last Admin: 10/06/20 09:08 Dose: 1 tab Documented by: Atorvastatin Calcium (Atorvastatin 40 Mg Tablet) [facility] [place] Last Admin: 10/06/20 05:33 Dose: 20 mg Documented by: Calcium Acetate (Calcium Acetate 667 Mg Capsule) 1,334 mg PO TIDWM [facility] Last Admin: 10/06/20 08:40 Dose: 1,334 mg Documented by: Citalopram Hydrobromide (Citalopram 20 Mg Tablet) 20 mg PO BEDTIME [facility] Last Admin: 10/05/20 20:51 Dose: 20 mg Documented by: Clonidine HCl (Clonidine 0.1 Mg Tablet) 0.1 mg PO BID [facility] Last Admin: 10/06/20 08:39 Dose: 0.1 mg Documented by: Cyclobenzaprine HCl (Cyclobenzaprine 10 Mg Tablet) 5 mg PO Q8H PRN PRN Reason: muscle spasms Dextrose (Dextrose 50% Syringe 50 Ml) 25 ml IVP ONCE PRN; Protocol PRN Reason: hypoglycemia protocol Dextrose (Dextrose 50% Syringe 50 Ml) 50 ml IVP PRN PRN; Protocol PRN Reason: hypoglycemia protocol Diltiazem HCl (Diltiazem 60 Mg Tablet) 60 mg PO TID [facility] Last Admin: 10/06/20 08:39 Dose: 60 mg Documented by: Enoxaparin Sodium (Enoxaparin 100 Mg/Ml Syringe) 100 mg SUBCUT Q24H [facility] Last Admin: 10/05/20 18:34 Dose: 100 mg Documented by: Enoxaparin Sodium (Enoxaparin 40 Mg/0.4 Ml Syringe) 40 mg SUBCUT Q24H [facility] Last Admin: 10/05/20 18:34 Dose: 40 mg Documented by: Ergocalciferol (Ergocalciferol (Vitamin D2) 50,000 Unit Capsule) 50,000 unit PO Q7D [facility] Last Admin: 10/04/20 22:47 Dose: 50,000 unit Documented by: Gentamicin Sulfate (Gentamicin 0.1% Cream 15 Gm) 1 applic TOPICAL DAILY [facility] Last Admin: 10/06/20 08:42 Dose: 1 applic Documented by: Glucagon (Glucagon 1 Mg/Ml Inj 1 Ml) 1 mg IM ONCE PRN; Protocol PRN Reason: Adult Acute Hypoglycemia Prot. Hydralazine HCl (Hydralazine 50 Mg Tablet) 50 mg PO TID [facility] Last Admin: 10/06/20 08:41 Dose: 50 mg Documented by: Dextrose (D5w) 500 mls @ 100 mls/hr IV ONCE PRN; Protocol PRN Reason: Adult Acute Hypoglycemia Prot Insulin Aspart (Insulin Aspart 100 Unit/1 Ml) 0 unit SUBCUT WM&BEDTIME [facility]; Protocol Last Admin: 10/06/20 08:39 Dose: 6 unit Documented by: Insulin Glargine (Insulin Glargine 100 Units/1 Ml) 12 unit SUBCUT BEDTIME [facility] Last Admin: 10/05/20 20:54 Dose: 12 unit Documented by: Levofloxacin (Levofloxacin 750 Mg Tablet) 750 mg PO EVERY OTHER DAY [facility]; Protocol Last Admin: 10/06/20 08:40 Dose: 750 mg Documented by: Levothyroxine Sodium (Levothyroxine 75 Mcg Tablet) 150 mcg PO QAM [facility] Last Admin: 10/06/20 05:33 Dose: 150 mcg Documented by: Losartan Potassium (Losartan 50 Mg Tablet) 100 mg PO BEDTIME [facility] Last Admin: 10/05/20 20:52 Dose: 100 mg Documented by: Metoprolol Tartrate (Metoprolol Tartrate 50 Mg Tablet) 50 mg PO BID [facility] Last Admin: 10/06/20 08:40 Dose: 50 mg Documented by: Non-Formulary Medication (Paricalcitol [Zemplar]) 1 mcg PO QAM [facility] Last Admin: 10/06/20 05:59 Dose: Not Given Documented by: Non-Formulary Medication (Renal Factor Plus) 1 tab PO QAM [facility] Last Admin: 10/06/20 05:59 Dose: Not Given Documented by: Non-Formulary Medication (Iodosorb (Cadexomer Iodine Gel)) 1 each TOPICAL DAILY [facility] Last Admin: 10/06/20 08:42 Dose: 1 each Documented by: Non-Formulary Medication (Non-Formulary Medication) 100 each PO QAM [facility] Last Admin: 10/06/20 05:35 Dose: 100 each Documented by: Pantoprazole Sodium (Pantoprazole Dr 40 Mg Tablet) 40 mg PO QAM [facility] Last Admin: 10/06/20 05:33 Dose: 40 mg Documented by: Peritoneal Dialysis Solution (Dianeal Low Ca W/2.5% Dex 2,000 Ml Bag) 2,000 ml INTRAPERIT 5XD [facility] Last Admin: 10/06/20 09:11 Dose: 2,000 ml Documented by: Polyethylene Glycol (Polyethylene Glycol 3350 Pkt 17 Gm) 17 gm PO BID [facility] Last Admin: 10/06/20 08:39 Dose: 17 gm Documented by: Polysaccharide Iron Complex (Iron Polysaccharide Complex 150 Mg Capsule) 150 mg PO BID [facility] Last Admin: 10/06/20 08:40 Dose: 150 mg Documented by: Vitals/I&O/Wt Last Vital Signs Temp 97.8 F 10/06/20 07:27 Pulse 96 10/06/20 07:27 Resp 18 10/06/20 07:27 BP 132/84 10/06/20 08:39 Pulse Ox 97 10/06/20 07:27 10/05/20 10/06/20 10/06/20 22:59 06:59 14:59 Intake Total 290 / 2530 480 / 480 Output Total 525 / 2225 200 / 2425 Balance -235 / 305 -200 / 105 480 / 480 Weight last 48 hrs Weight 143.335 kg Weight 142.519 kg Physical Exam Narrative: EXAM NARRATIVE: comfortable, nard, vss heent- nc/at, eomi neck no jvp lungs clear heart reg, no rub abd soft, nt, nd ext foot ulcer 1+ edema LUE AVF w/ thrill and bruit pulses poor Data : 10/05/20 04:38 10/05/20 04:38 Micro: Microbiology 10/02/20 15:00 Gram Stain - Final Peritoneal Fluid Body Fluid Culture - Final 10/02/20 15:44 Body Fluid Culture - Final Synovial Fluid 09/30/20 14:12 Blood Culture - Final Blood NO GROWTH AFTER 5 DAYS A&P Additional A&P Information 1. ESRD on PD. CAPD in-house, 2 L, 2.5%, 5xdaily We will adjust PD prescription accordingly during his hospitalization, however, he did well this last admission. Dose medications for GFR less than 15 on PD. 2. Right upper extremity DVT, adjacent to PICC. catheter removed 3. ID issues MSSA osteomyelitis, outpatient he was on IV Rocephin Pseudomonas bacteremia, concern for septic arthropathy of the right shoulder, POD 2 arthroscopy and washout Doxycycline and LEvaquin on board 4. Hemodynamics. may need to be more aggresive w/ fluid removal and lower meds 5. Anemia. Iron sat low on Ferrex, EPO dosing - may be resistant w/ infection 6. Hyperphosphatemia. On PhosLo -repeat phos 6b. check vit d and pth levels on vit d and calcitriol 7. a fib 8. d/c allopurinol 300 d. check uric acid levle. if high- low dose allopurinol w/ ESRD Patient seen and examined via telemedicine, with the assistance of the bedside RN > 25 min spent in evaluation and mgmt of patient Attestations Medical Necessity Statement*: per medicine/ esrd on CAPD Time Spent in Patient Care: 16 - 35 minutes Coding Level of Care Code Acute Tester Equipment for Breanna Aguero
--- NOTE | 2020-10-06 10:12 | P.PN_ITS ---
Subjective Subjective: Interval history: No events overnight. States he is feeling a lot better. States pain in the shoulder is better as well now. Denies any nausea, vomiting, headache. Had a restful night. Is concerned about results of CTA. Discussed with him detail regarding possible need of angiogram as an outpatient in future. Also again discussed with him of eventual possible need of toe versus foot amputation for prevention of further infections given severely poor lower limb blood circulation. Vitals/I&O/Wt Last Vital Signs Temp 97.8 F 10/06/20 07:27 Pulse 96 10/06/20 07:27 Resp 18 10/06/20 07:27 BP 132/84 10/06/20 08:39 Pulse Ox 97 10/06/20 07:27 10/05/20 10/06/20 10/06/20 22:59 06:59 14:59 Intake Total 290 / 2530 480 / 480 Output Total 525 / 2225 200 / 2425 Balance -235 / 305 -200 / 105 480 / 480 Weight last 48 hrs Weight 143.335 kg Weight 142.519 kg Physical Exam Const: COMMON NORMALS: no acute distress, patient oriented x3 and alert GENERAL APPEARANCE: cooperative and comfortable ORIENTATION/CONSCIOUSNESS: Yes awake HENMT: COMMON NORMALS: oropharynx normal Neck/C-Spine: COMMON NORMALS: no JVD Resp: COMMON NORMALS: normal respiratory effort and clear to auscultation bilaterally AUSCULTATION: clear to auscultation bilaterally Cardio: COMMON NORMALS: no JVD, regular rhythm, S1 normal heart sound present, S2 normal heart sound present and No murmurs present (Cardio) RHYTHM: regular rhythm HEART SOUNDS: S1 normal heart sound present and S2 normal heart sound present GI: COMMON NORMALS: Normal to inspection, nondistended, normoactive bowel sounds present, Soft to palpation and non-tender PALPATION: Yes Soft to pa lpation Extremity: COMMON NORMALS: no joint enlargement GENERAL: Yes edema (2-3+ bilateral lower extremity edema) OTHER: Swelling of RUE decreasing. R shoul arelis swelling. He is regained quite a bit of mobility especially in the distal arm. Only mild edema currently. No expansion of the wound of R hallux. No drainage. Neuro: COMMON NORMALS: patient oriented x3 and moves all extremities SENSORIUM/ORIENTATION: Yes alert Skin: COMMON NORMALS: no rashes or lesions noted GENERAL SKIN EXAM: no rashes or lesions noted Data : 10/06/20 10:20 10/06/20 10:20 Micro: Microbiology 10/02/20 15:00 Gram Stain - Final Peritoneal Fluid Body Fluid Culture - Final 10/02/20 15:44 Body Fluid Culture - Final Synovial Fluid 09/30/20 14:12 Blood Culture - Final Blood NO GROWTH AFTER 5 DAYS A&P Assessment and plan (1) Effusion of glenohumeral joint of right upper extremity: Status: Acute (2) Septicemia, Pseudomonas: Status: Acute (3) Septic thrombophlebitis of upper extremities: Status: Acute (4) DVT (deep venous thrombosis): Status: Acute Qualifiers: Chronicity: acute DVT location: non-extremity vein Qualified Code(s): I82.90 - Acute embolism and thrombosis of unspecified vein Additional A&P Information Sepsis secondary to Pseudomonas bacteremia in setting of diabetic foot ulcer and osteomyelitis: Blood cultures from September 30 and + for Pseudomonas with one blood culture from also positive for Corynebacterium. Quite possible that Corynebacterium as a contaminant. Repeat blood cultures from negative so far. Most likely source of infection is nonhealing diabetic foot ulcer. Peritoneal fluid negative and Gram stain and no growth on culture so far, no abdominal pain with 36 PMNs so the suspicion of peritonitis is low. CT abdomen pelvis on October 02 - for any additional pockets of infection. Fluid analysis from shoulder joint aspiration only showing 110 WBC so low chances of septic arthritis. We will follow up cultures from the OR. Antibiotics changed to Levaquin and Augmentin as per ID recommendations. Most likely patient will require antibiotics for 6 weeks as an outpatient for possible septic thrombophlebitis along with Pseudomonas bacteremia. ID, orthopedic recommendations appreciated. Diabetic foot ulcer: Nonhealing ulcer. Appreciate podiatry recommendations. Peripheral arterial disease: Most likely cause of persistent nonhealing ulcer. CTA aorta with runoff done today consistent with distal peripheral atherosclerotic disease with heavy calcification in the arteries bilaterally with poor runoff to both lower extremities. Case discussed with Dr. Jaime. Most likely patient will require peripheral angiogram and PTCA as an outpatient because of heavily calcified below the knee peripheral artery disease. Currently there is no mottling or cyanosis of feet/toes however flow could not be reliably detected in the distal foot/toes Multiple discussions have been made with patient to consider amputation at distal lower extremity to eliminate the persistent portal of entry for additional pathogens and reduce need for additional prolonged therapies thus reducing his exposure to associated potential complications. He states that he has considered amputation and still currently declines and wants to continue current treatment. Right IJ DVT post PICC line: Continue with full dose Lovenox as per creatinine clearance for now. Most likely will switch him over to Eliquis on discharge. He will need Eliquis 10 mg twice daily for 7 days followed by 5 mg twice daily for at least 3 months since PICC line removal. Full code. Carb consistent cardiac diet. Attestations Medical Necessity Statement*: Requires further hospitalization for management of Pseudomonas bacteremia secondary to diabetic foot ulcer and osteomyelitis in setting of nonhealing ulcer and severe peripheral artery disease. Time Spent in Patient Care: Greater than 35 minutes (>than 50% of time spent in counselling and/or direct pt care on unit) . Coding Level of Care Code Acute Acid Operator for Breanna Fwd Exam Comprehensive Diagnoses Effusion of glenohumeral joint of right upper extremity M25.411 Septicemia, Pseudomonas A41.52 Septic thrombophlebitis of upper extremities I80.8 DVT (deep venous thrombosis) I82.90 Chronicity: acute DVT location: non-extremity vein
--- NOTE | 2020-10-06 11:09 | PC.OT ---
OT note: Attempted OT session to review HEP given yesterday, pt adamantly refused. He reported he's doing the exercises and did not want to participate in therapy.
[2020-10-06 11:15] LABS: Basophils % 0.3 %; Eosinophils # 0.9 10^3/uL (0.0-0.8); Eosinophils % 8.1 %; Hemoglobin 7.7 g/dL (11.7-16.6); Lymphocytes # 1.1 10^3/uL (0.8-4.8); Lymphocytes % 9.4 %; Mean Corpuscular HGB Conc 29.6 g/dL (30.0-36.0); Mean Corpuscular Hemoglobin 28.5 pg (28.0-34.0); Mean Corpuscular Volume 96.3 fL (80-94); Monocytes % 8.6 %; Neutrophils # 8.36 10^3/uL (1.8-7.7); Neutrophils % 72.3 %; Nucleated Red Blood Cells % 0 %; Platelet Count 242 10^3/cmm (130-400); Red Cell Distribution Width 17.9 % (12.1-15.1); White Blood Count 11.6 10^3/uL (4.0-10.0)
[2020-10-06 11:35] LABS: Alanine Aminotransferase 19 U/L (0-41); Albumin Level 2.4 g/dL (3.5-5.2); Alkaline Phosphatase 99 IU/L (40-130); Aspartate Amino Transferase 15 U/L (0-40); Blood Urea Nitrogen 57 mg/dL (8-23); Calcium 8.8 mg/dL (8.5-10.5); Carbon Dioxide 26 mmol/L (22-29); Chloride 97 mmol/L (98-107); Globulin 3.1 g/dL (1.3-4.6); Glomerular Filtration Rate 8.9 mL/min (90-130); Glucose 225 mg/dL (65-115); Osmolality Calculated 301 mOsm/kg (285-295); Sodium 134 mmol/L (136-145); Total Bilirubin 0.2 mg/dL (0.15-1.2); Total Protein 5.5 g/dL (6.6-8.7); Uric Acid 4.6 mg/dL (3.4-7.0)
[2020-10-06 11:49] LABS: Ferritin 1904 ng/mL (30-400)
[2020-10-06 12:03] LABS: Glucose Point of Care 273 mg/dL (70-110)
[2020-10-06] MEDS: cyclobenzaprine 10 mg Tablet 5 MG PO ×2 (12:09→20:32)
--- NOTE | 2020-10-06 12:25 | PC.SOCIAL ---
IMM update Pg. 2 of IMM updated and reviewed with patient, who verbalized understanding. Copy provided.
--- NOTE | 2020-10-06 13:13 | PC.NURSE ---
Called and verified dialysis orders with Dr. Messer, order to have dialysis exchange 5 times a day with dwell time of 4.5 hours. see Orders for further details.
--- NOTE | 2020-10-06 14:01 | PM.PN ---
Subjective Subjective: Interval history: Patient evaluated today. Dressing change per nursing staff, appreciate their efforts. He denies any pain to the right foot. Patient wanted to have a conversation in regards to amputation. I had a straightforward conversation with him and explained that amputation is a very viable option. I explained to him that right hallux amputation combined with antibiotic therapy would be his most curative route to eliminate the source of infection. I did however tell him that this is not without risk and that there are no guarantees proceeding with amputation as the final procedure and that poor perfusion could be a contributing factor to wound dehiscence, failure at the hallux amputation stump and need for higher levels amputation as a result of his distal arterial disease seen on CT angiogram. I explained to him that though there are these risks that I would still recommend an amputation as the most curative option. Patient is adamant that he continue with limb salvage at this time. His wound does appear stable clinically and it is granulating in. I informed him that any worsening of signs or symptoms of infection at his foot would then necessitate amputation and that limb salvage may not be an option at that point. I told him that the open wound is always vulnerable to new pathogens and further complication and is putting his overall health at risk. He states that he understands and that at this time he would still like to pursue limb salvage. He is not open to any level of amputation if he can help it. Vitals/I&O/Wt Last Vital Signs Temp 97.8 F 10/06/20 11:01 Pulse 72 10/06/20 11:01 Resp 16 10/06/20 11:01 BP 116/70 10/06/20 11:01 Pulse Ox 97 10/06/20 11:01 10/05/20 10/06/20 10/06/20 22:59 06:59 14:59 Intake Total 290 / 2530 600 / 600 Output Total 525 / 2225 200 / 2425 Balance -235 / 305 -200 / 105 600 / 600 Weight last 48 hrs Weight 316 lb Weight 314 lb 3.2 oz Physical Exam Narrative: EXAM NARRATIVE: Patient is alert and oriented ?3 and in no acute distress. The following is a focused lower extremity exam. VASCULAR: Dorsalis pedis and posterior tibial arteries palpable +1 bilaterally. Capillary refill time less than 5 seconds to the distal hallux bilaterally. Calf is supple and nontender proximally and distally. Diminished hair growth at legs and feet bilaterally, no hair growth appreciated to the level to dorsal toes. +1 pitting edema to the lower extremities. Palpable +1 popliteal artery bilaterally. NEUROLOGICAL: Protective sensation intact 0/10 sites, tested with [place] monofilament to bilateral feet. DERMATOLOGICAL: Wound to the medial aspect of the right first metatarsal phalangeal joint measures wound measurements 4.5 cm x 3.0 cm x 0.4 cm, no purulent drainage, no periwound erythema, no malodor. No proximal lymphangitic streaking. Wound is exposed to bone able to visualize the proximal and distal phalanx of the right hallux. Hyper granulation at the proximal portion of the wound. MUSCULOSKELETAL: Muscle strength is 5 out of 5 in all 3 cardinal planes to bilateral foot and ankle. Pes planus foot type bilaterally. Ankle joint dorsiflexion is to neutral bilaterally. Reducible hammertoe deformities 2 through 5 bilaterally. Mild hallux abductovalgus deformity bilaterally, hallux is not track bound. Data : 10/06/20 10:20 10/06/20 10:20 Micro: Microbiology 10/02/20 15:00 Gram Stain - Final Peritoneal Fluid Body Fluid Culture - Final 10/02/20 15:44 Body Fluid Culture - Final Synovial Fluid 09/30/20 14:12 Blood Culture - Final Blood NO GROWTH AFTER 5 DAYS A&P Assessment and plan (1) Diabetic peripheral neuropathy associated with type 2 diabetes mellitus: Status: Acute (2) ESRD (end stage renal disease): Status: Acute (3) Non-pressure chronic ulcer of other part of right foot with necrosis of bone: Status: Acute Mr. Bonilla is a 65-year-old male with osteomyelitis of the right hallux completing 6 weeks of IV antibiotics, 2 g of Rocephin infused daily via PICC line. Acute DVT of the right jugular, recommend infectious disease consultation as to discontinuing PICC line and potentially switching to oral antibiotics, appreciate infectious disease input in regards to this. Bone biopsy taken intraoperatively on 08/15/20 demonstrated no growth likely due to suppression as he was receiving empiric antibiotics prior to the procedure for several days. Wound bed culture taken 08/11/20 demonstrated strep G as well as staph aureus. Performed excisional debridement of nonviable epidermis, dermis, subcutaneous tissue down to and including fat layer, muscle and deep fascia of the right hallux wound, wound is clinically stable at this time without cellulitis, erythema or purulent drainage. -Performed dressing change, Iodosorb gel and Optifoam dressing. -Patient may ambulate as tolerated with postop shoe to the right foot. Elevate right foot while at rest -Repeat x-ray shows stable postoperative changes no further osteolysis. -ABIs unable to be obtained due to noncompressible vessels, waveforms shows normal amplitude with loss of dicrotic notch. -CT angio abdominal aorta with runoff shows poor three-vessel runoff at the right lower extremity and heavy calcification in the left distal popliteal artery. -Patient is adamant to continue limb salvage, from my perspective he has poor healing potential however his wound is stable and limb salvage could be pursued would require continued infection control, recommend close collaboration with infectious disease, appreciate Dr. Roxann wallace, currently on doxycycline twice daily 100 mg and levofloxacin 750 mg every other day. Blood culture positive for Pseudomonas during this hospitalization. -No surgical intervention on the right foot anticipated during his hospitalization at the wound is stable, repeat x-rays have demonstrated stable postoperative changes without further progression of osteomyelitis. -Recommend wound care referral after hospital discharge. Would benefit from advanced wound care modalities and possible hyperbarics. Attestations Medical Necessity Statement*: Osteomyelitis right foot Coding Level of Care Code Acute French Translator for carla Aguero Diagnoses Diabetic peripheral neuropathy associated with type 2 diabetes mellitus E11.42 ESRD (end stage renal disease) N18.6 Non-pressure chronic ulcer of other part of right foot with necrosis of bone L97.514
--- NOTE | 2020-10-06 16:13 | PC.NURSE ---
patient guards right arm due to shoulder pain throughout shift, patient preforms most tasks with left arm, able to preform tasks independently.
[2020-10-06 17:01] LABS: Glucose Point of Care 233 mg/dL (70-110)
[2020-10-06] MEDS: enoxaparin 40 mg/0.4 mL Syringe SUBCUT (17:33)
[2020-10-06] MEDS: enoxaparin 100 mg/mL Syringe SUBCUT (17:33)
--- NOTE | 2020-10-06 19:17 | PM.CONSULT ---
Providers/Reason For Consult Consulting Physican/Specialty*: Cardiology Reason for Consult*: Gangrenous foot with critical limb ischemia and limb salvage Attending Physician: Kory Sosa MD Primary Care Provider: Anmol Santiago History of Present Illness History of Present Illness Levi Bonilla is a 65 year old male past medical history significant for hypertension hyperlipidemia diabetes mellitus type 2 chronic end-stage kidney disease on peritoneal dialysis osteomyelitis gangrene of right toe/proximal phalanx and right hallux MRSA requiring IV and oral antibiotics debridement. Patient would not like to have amputation of the toe which he was offered for persistent infection gangrene and osteomyelitis. ABIs could not be done due to noncompressible arteries due to calcification. Abdominal aorta with runoff was noted which is consistent with highly calcified but patent iliacs SFA and popliteal arteries however below the knee there appeared to be highly calcified severe diseased vessel, foot and arch vascular system could not be seen. It appeared to me that patient has diabetic and limb ischemia derived infection. I have detailed discussion with the patient regarding there is possibility of amputation of her right to her more tissues in order to debride and for proper healing. He got agitated and told me that he would not like it, only thing he would like to heal his wound without any talk for amputation. I have again explained him as a part of team I am here to help him and would like to give my best try with peripheral angiogram to see whether I can be of any help in terms of balloon angioplasty or atherectomy below the knee to improve the flow but he has to understand that he has pretty advanced disease with already in place gangrene and severely calcified arteries below the knee. Procedure itself carry a risk of bleeding in the face of chronic anemia due to use of anticoagulation and antiplatelet, there is also risk of distal embolization in these highly calcified diseased arteries leading to further worsening of symptoms with acute limb ischemia and in worse case scenario amputation of the foot or below the knee leg. He told me that he would like to think about it he would discuss this with Dr. Woodall and his . I have told him that I will come back again for any more questions and would like to discuss it with his family/ as well. His other comorbidities are atrial fibrillation acute DVT for which he is on anticoagulation already for DVT and A. fib. Review of Systems General: Reports: 10 or more systems reviewed and unremarkable except in HPI and below Const: Reports: fatigue; Denies: fever(s), chills, body aches or change in appetite Eyes: Denies: change in vision, blurry vision, photophobia or eye discomfort ENMT: Reports: hoarseness; Denies: throat pain, enlarged tonsils, odynophagia, dental pain or nasal congestion Card: Denies: chest pain, palpitations, irregular heart rhythm, edema, swelling of feet/ankles, lightheadedness, pre-syncope, dyspnea on exertion or orthopnea Resp: Denies: dyspnea, productive cough, non-productive cough, wheezing, stridor, pain on inspiration, change in phlegm color, hemoptysis or chest congestion GI: Denies: abdominal pain, nausea, vomiting, hematemesis, coffee ground emesis, dysphagia, heartburn, diarrhea, constipation, GI cramping, change in stool character, hematochezia or melena : Denies: flank pain, dysuria, urinary frequency, urinary urgency, urinary hesitancy, urinary dribbling, change in urine stream or hematuria Musc: Reports: extremity swelling, joint pain, joint stiffness, limited range of motion and muscle cramps; Denies: neck pain, back pain, extremity pain, joint swelling, joint warmth or deformity Skin/Breast: Reports: sores, lesions, dry skin, nail changes and change in hair; Denies: rash or erythema Neuro: Denies: headache(s), numbness in extremities, weakness in extremities, sensory changes, difficulty walking, frequent falls, dizziness, vertigo, behavioral changes, Slurred speech present or seizure-like activity Psych: Denies: anxiety, depression, suicidal ideation or homicidal ideation Endo: Denies: polyuria, polydipsia, tired all the time, cold intolerance or hot flashes Edmundo/Lymph: Denies: easy bruising or easy bleeding All/Imm: Denies: urticaria Meds/Allergies Home Medications and Allergies Home Medications Medication Instructions Recorded Confirmed Last Taken Type allopurinol 300 mg PO QAM 08/11/20 09/27/20 09/27/20 History amlodipine 10 mg PO BEDTIME 08/11/20 09/27/20 09/26/20 History atorvastatin 20 mg PO QAM 08/11/20 09/27/20 09/27/20 History citalopram 20 mg PO BEDTIME 08/11/20 09/27/20 09/26/20 History clonidine HCl 0.1 mg PO BID 08/11/20 09/27/20 09/27/20 History cyclobenzaprine 5 mg PO Q8H PRN 08/11/20 09/27/20 09/26/20 History ergocalciferol (vitamin D2) 1,250 mcg PO Q7D 08/11/20 09/27/20 08/11/20 History levothyroxine 150 mcg PO QAM 08/11/20 09/27/20 09/27/20 History losartan 100 mg PO BEDTIME 08/11/20 09/27/20 09/26/20 History megestrol 40 mg PO DAILY 08/11/20 09/27/20 08/11/20 History mupirocin calcium See Rx Instructions .ROUTE .COMPLEX 08/11/20 09/27/20 Unknown History pantoprazole 40 mg PO QAM 08/11/20 09/27/20 09/27/20 History paricalcitol [Zemplar] 1 mcg PO QAM 08/11/20 09/27/20 09/27/20 History peritoneal dialysis solution See Rx Instructions .ROUTE .COMPLEX 08/11/20 09/27/20 08/10/20 History torsemide 100 mg PO QAM 08/11/20 09/27/20 08/11/20 History tramadol 50 - 100 mg PO Q8H PRN 08/11/20 09/27/20 09/26/20 History glipizide 7.5 mg PO DAILY 30 Days #45 tab 08/18/20 09/27/20 09/27/20 Rx cadexomer iodine 0.9 % topical gel 40 g TOPICAL Q3D #40 g 09/07/20 09/27/20 09/27/20 Rx states uses everyday Post Operative darco shoe #1 ea 09/20/20 09/27/20 Unknown Rx Ferrex 150 150 mg PO BID 09/27/20 09/27/20 09/27/20 History Renal Factor Plus 1 tab PO QAM 09/27/20 09/27/20 09/27/20 History Tylenol Extra Strength 1,000 mg PO PRN 09/27/20 09/27/20 09/26/20 History aspirin 81 mg PO QPM 09/27/20 09/27/20 09/26/20 History sodium chloride 0.9 % See Rx Instructions .ROUTE .COMPLEX 09/27/20 09/27/20 Unknown History amoxicillin-pot clavulanate 1 tab PO BID 42 Days #84 tab 10/07/20 Unknown Rx apixaban [Eliquis DVT-PE Treat 30D See Rx Instructions .ROUTE 10/07/20 Unknown Rx Start] .COMPLEX #74 ea hydralazine 25 mg PO TID 30 Days #90 tab 10/07/20 Unknown Rx hydrocodone-acetaminophen 1 tab PO Q8H PRN #15 tab 10/07/20 Unknown Rx levofloxacin 750 mg PO EVERY OTHER DAY 42 Days 10/07/20 Unknown Rx #21 tab metoprolol tartrate 75 mg PO BID #0 tab 10/07/20 09/27/20 09/27/20 08:00 Rx Allergies Allergy/AdvReac Type Severity Reaction Status Date / Time No Known Allergies Allergy Verified 09/27/20 20:05 Current Medications Current Medications Generic Name Dose Route Start Last Admin Trade Name Fabriceq PRN Reason Stop Dose Admin Acetaminophen 1,000 mg 09/27/20 23:10 10/06/20 03:29 Acetaminophen 500 Mg Tablet PO 1,000 mg PRN MARIANELA Administration Hydrocodone Bitart/Acetaminophen 1 tab 09/29/20 15:14 10/06/20 18:30 Hydrocodone-Acetaminophen 5-325 Mg Tablet PO 1 tab Q4H PRN Administration MODERATE PAIN Amoxicillin/Clavulanate Potassium 1 tab 10/06/20 09:00 10/06/20 17:36 Amoxicillin-Clav 500-125 Mg Tablet PO 1 tab BID MARIANELA Administration Protocol Atorvastatin Calcium 20 mg 09/28/20 09:00 10/06/20 05:33 Atorvastatin 40 Mg Tablet PO 20 mg QAM MARIANELA Administration Calcium Acetate 1,334 mg 09/28/20 18:00 10/06/20 17:34 Calcium Acetate 667 Mg Capsule PO 1,334 mg TIDWM MARIANELA Administration Citalopram Hydrobromide 20 mg 09/28/20 21:00 10/05/20 20:51 Citalopram 20 Mg Tablet PO 20 mg BEDTIME MARIANELA Administration Clonidine HCl 0.1 mg 09/28/20 09:00 10/06/20 17:34 Clonidine 0.1 Mg Tablet PO 0.1 mg BID MARIANELA Administration Cyclobenzaprine HCl 5 mg 09/27/20 23:10 10/06/20 12:09 Cyclobenzaprine 10 Mg Tablet PO 5 mg Q8H PRN Administration muscle spasms Diltiazem HCl 60 mg 09/28/20 09:25 10/06/20 15:09 Diltiazem 60 Mg Tablet PO 60 mg TID MARIANELA Administration Enoxaparin Sodium 100 mg 10/04/20 18:00 10/06/20 17:33 Enoxaparin 100 Mg/Ml Syringe SUBCUT 100 mg Q24H MARIANELA Administration Enoxaparin Sodium 40 mg 10/04/20 18:00 10/06/20 17:33 Enoxaparin 40 Mg/0.4 Ml Syringe SUBCUT 40 mg Q24H MARIANELA Administration Ergocalciferol 50,000 unit 09/27/20 23:10 10/04/20 22:47 Ergocalciferol (Vitamin D2) 50,000 Unit Capsule PO 50,000 unit Q7D MARIANELA Administration Gentamicin Sulfate 1 applic 10/01/20 09:00 10/06/20 08:42 Gentamicin 0.1% Cream 15 Gm TOPICAL 1 applic DAILY MARIANELA Administration Hydralazine HCl 50 mg 09/29/20 15:00 10/06/20 15:10 Hydralazine 50 Mg Tablet PO 50 mg TID MARIANELA Administration Insulin Aspart 0 unit 10/03/20 18:00 10/06/20 17:34 Insulin Aspart 100 Unit/1 Ml SUBCUT 8 unit WM&BEDTIME MAIRANELA Administration Protocol Insulin Glargine 12 unit 10/03/20 21:00 10/05/20 20:54 Insulin Glargine 100 Units/1 Ml SUBCUT 12 unit BEDTIME MARIANELA Administration Levofloxacin 750 mg 10/02/20 09:00 10/06/20 08:40 Levofloxacin 750 Mg Tablet PO 750 mg EVERY OTHER DAY [facility] Administration Protocol Levothyroxine Sodium 150 mcg 09/28/20 06:00 10/06/20 05:33 Levothyroxine 75 Mcg Tablet PO 150 mcg QAM MARIANELA Administration Losartan Potassium 100 mg 09/28/20 21:00 10/05/20 20:52 Losartan 50 Mg Tablet PO 100 mg BEDTIME MARIANELA Administration Metoprolol Tartrate 50 mg 09/28/20 09:00 10/06/20 17:34 Metoprolol Tartrate 50 Mg Tablet PO 50 mg BID MARIANELA Administration Non-Formulary Medication 1 mcg 09/28/20 06:00 10/06/20 05:59 Paricalcitol [Zemplar] [facility] 1 tab 09/28/20 06:00 10/06/20 05:59 Renal Factor Plus PO Not Given QAM [facility] Non-Formulary 1 each 09/29/20 15:00 10/06/20 08:42 Medication (Iodosorb TOPICAL 1 each (Cadexomer Iodine DAILY [facility] Administration Gel)) Non-Formulary Medication 100 each 10/03/20 12:01 10/06/20 05:35 Non-Formulary Medication PO 100 each QAM [facility] Administration Pantoprazole Sodium 40 mg 09/28/20 09:00 10/06/20 05:[address] 40 Mg Tablet PO 40 mg QAM [facility] Administration Peritoneal Dialysis Solution 2,000 ml 10/02/20 14:00 10/06/20 18:29 Dianeal Low Ca W/2.5% Dex 2,000 Ml Bag INTRAPERIT 2,000 ml 5XD [facility] Administration Polyethylene Glycol 17 gm 09/28/20 14:30 10/06/20 17:34 Polyethylene Glycol 3350 Pkt 17 Gm PO 17 gm BID [facility] Administration Polysaccharide Iron Complex 150 mg 09/28/20 09:00 10/06/20 17:34 Iron Polysaccharide Complex 150 Mg Capsule PO 150 mg BID [facility] Administration Additional Medication Information Current Medications Acetaminophen (Acetaminophen 500 Mg Tablet) 1,000 mg PO PRN [facility] Last Admin: 10/06/20 03:29 Dose: 1,000 mg Documented by: Hydrocodone Bitart/Acetaminophen (Hydrocodone-Acetaminophen 5-325 Mg Tablet) 1 tab PO Q4H PRN PRN Reason: MODERATE PAIN Last Admin: 10/06/20 09:20 Dose: 1 tab Documented by: Allopurinol (Allopurinol 300 Mg Tablet) [facility] [place] Last Admin: 10/06/20 05:34 Dose: 300 mg Documented by: Amoxicillin/Clavulanate Potassium (Amoxicillin-Clav 500-125 Mg Tablet) 1 tab PO BID [facility]; Protocol Last Admin: 10/06/20 09:08 Dose: 1 tab Documented by: Atorvastatin Calcium (Atorvastatin 40 Mg Tablet) 20 [facility] [place] Last Admin: 10/06/20 05:33 Dose: 20 mg Documented by: Calcium Acetate (Calcium Acetate 667 Mg Capsule) 1,334 mg PO TIDWM [facility] Last Admin: 10/06/20 08:40 Dose: 1,334 mg Documented by: Citalopram Hydrobromide (Citalopram 20 Mg Tablet) 20 mg PO BEDTIME [facility] Last Admin: 10/05/20 20:51 Dose: 20 mg Documented by: Clonidine HCl (Clonidine 0.1 Mg Tablet) 0.1 mg PO BID [facility] Last Admin: 10/06/20 08:39 Dose: 0.1 mg Documented by: Cyclobenzaprine HCl (Cyclobenzaprine 10 Mg Tablet) 5 mg PO Q8H PRN PRN Reason: muscle spasms Dextrose (Dextrose 50% Syringe 50 Ml) 25 ml IVP ONCE PRN; Protocol PRN Reason: hypoglycemia protocol Dextrose (Dextrose 50% Syringe 50 Ml) 50 ml IVP PRN PRN; Protocol PRN Reason: hypoglycemia protocol Diltiazem HCl (Diltiazem 60 Mg Tablet) 60 mg PO TID [facility] Last Admin: 10/06/20 08:39 Dose: 60 mg Documented by: Enoxaparin Sodium (Enoxaparin 100 Mg/Ml Syringe) 100 mg SUBCUT Q24H [facility] Last Admin: 10/05/20 18:34 Dose: 100 mg Documented by: Enoxaparin Sodium (Enoxaparin 40 Mg/0.4 Ml Syringe) 40 mg SUBCUT Q24H [facility] Last Admin: 10/05/20 18:34 Dose: 40 mg Documented by: Ergocalciferol (Ergocalciferol (Vitamin D2) 50,000 Unit Capsule) 50,000 unit PO Q7D [facility] Last Admin: 10/04/20 22:47 Dose: 50,000 unit Documented by: Gentamicin Sulfate (Gentamicin 0.1% Cream 15 Gm) 1 applic TOPICAL DAILY [facility] Last Admin: 10/06/20 08:42 Dose: 1 applic Documented by: Glucagon (Glucagon 1 Mg/Ml Inj 1 Ml) 1 mg IM ONCE PRN; Protocol PRN Reason: Adult Acute Hypoglycemia Prot. Hydralazine HCl (Hydralazine 50 Mg Tablet) 50 mg PO TID [facility] Last Admin: 10/06/20 08:41 Dose: 50 mg Documented by: Dextrose (D5w) 500 mls @ 100 mls/hr IV ONCE PRN; Protocol PRN Reason: Adult Acute Hypoglycemia Prot Insulin Aspart (Insulin Aspart 100 Unit/1 Ml) 0 unit SUBCUT WM&BEDTIME [facility]; Protocol Last Admin: 10/06/20 08:39 Dose: 6 unit Documented by: Insulin Glargine (Insulin Glargine 100 Units/1 Ml) 12 unit SUBCUT BEDTIME [facility] Last Admin: 10/05/20 20:54 Dose: 12 unit Documented by: Levofloxacin (Levofloxacin 750 Mg Tablet) 750 mg PO EVERY OTHER DAY [facility]; Protocol Last Admin: 10/06/20 08:40 Dose: 750 mg Documented by: Levothyroxine Sodium (Levothyroxine 75 Mcg Tablet) 150 mcg PO QAM [facility] Last Admin: 10/06/20 05:33 Dose: 150 mcg Documented by: Losartan Potassium (Losartan 50 Mg Tablet) 100 mg PO BEDTIME [facility] Last Admin: 10/05/20 20:52 Dose: 100 mg Documented by: Metoprolol Tartrate (Metoprolol Tartrate 50 Mg Tablet) 50 mg PO BID [facility] Last Admin: 10/06/20 08:40 Dose: 50 mg Documented by: Non-Formulary Medication (Paricalcitol [Zemplar]) 1 mcg [facility] [place] Last Admin: 10/06/20 05:59 Dose: Not Given Documented by: Non-Formulary Medication (Renal Factor Plus) 1 tab [facility] [place] Last Admin: 10/06/20 05:59 Dose: Not Given Documented by: Non-Formulary Medication (Iodosorb (Cadexomer Iodine Gel)) 1 each TOPICAL DAILY [facility] Last Admin: 10/06/20 08:42 Dose: 1 each Documented by: Non-Formulary Medication (Non-Formulary Medication) 100 each PO QAM [facility] Last Admin: 10/06/20 05:35 Dose: 100 each Documented by: Pantoprazole Sodium (Pantoprazole Dr 40 Mg Tablet) 40 mg PO QAM [facility] Last Admin: 10/06/20 05:33 Dose: 40 mg Documented by: Peritoneal Dialysis Solution (Dianeal Low Ca W/2.5% Dex 2,000 Ml Bag) 2,000 ml INTRAPERIT 5XD [facility] Last Admin: 10/06/20 09:11 Dose: 2,000 ml Documented by: Polyethylene Glycol (Polyethylene Glycol 3350 Pkt 17 Gm) 17 gm PO BID [facility] Last Admin: 10/06/20 08:39 Dose: 17 gm Documented by: Polysaccharide Iron Complex (Iron Polysaccharide Complex 150 Mg Capsule) 150 mg PO BID [facility] Last Admin: 10/06/20 08:40 Dose: 150 mg Documented by: PFSH Acute PFSH: Medical History Anemia Atrial fibrillation with RVR Atrial fibrillation, chronic Diabetes Diabetic neuropathy Elevated troponin End stage renal disease -on peritoneal dialysis Gout Hypertension Hypothyroidism Morbid obesity Surgical History Presence of Watchman left atrial appendage closure device S/P PICC central line placement aug 16 2020 Family History Other Family history non-contributory Social History Alcohol intake: never Housing: House Vitals/I&O/Wt Last Vital Signs Temp 97.8 F 10/06/20 15:45 Pulse 87 10/06/20 15:45 Resp 18 10/06/20 15:45 BP 125/72 10/06/20 17:34 Pulse Ox 97 10/06/20 15:45 10/06/20 10/06/20 10/06/20 06:59 14:59 22:59 Intake Total 600 / 600 240 / 840 Output Total 200 / 2425 Balance -200 / 105 600 / 600 240 / 840 Weight last 48 hrs Weight 316 lb Weight 314 lb 3.2 oz Physical Exam Narrative: EXAM NARRATIVE: GENERAL: Patient is alert, awake and oriented x3. NECK: No jugular vein distension. HEENT: No cyanosis. No icterus. No pallor. HEART: Regular S1 and S2. No murmur, rub or gallop. LUNGS: Clear to auscultate bilaterally. ABDOMEN: Soft, nontender and nondistended. Positive bowel sounds. No guarding, rebound or tenderness. CENTRAL NERVOUS SYSTEM: Grossly nonfocal. EXTREMITIES: Lower extremities without edema bilaterally. Pulses not palpable right foot bandage Data Micro: Micro: Microbiology 09/30/20 01:06 Blood Culture - Fi nal Blood Pseudomonas aer uginosa 10/02/20 15:00 Gram Stain - Final Peritoneal Fluid Body Fluid Culture - Final 10/02/20 15:44 Body Fluid Culture - Final Synovial Fluid 09/30/20 14:12 Blood Culture - Fi nal Blood NO GROWTH AFTER 5 DAYS Other Data: Attestation for Other Data: I personally reviewed and interpreted the following: Other data: CTA with abdomin/ runoff Poor contrast opacification and dense diffuse arterial calcification limits evaluation. 2. Distal peripheral atherosclerotic disease with heavily calcified arteries bilaterally. 3. Heavily calcified Calf arteries with poor runoff to both lower extremities bilaterally. 4. No abdominal aortic aneurysm. 5. Diffuse abdominal wall anasarca with mild ascites. 6. Mild ascites. A&P Assessment and plan (1) Atrial fibrillation: Rate control anticoagulation continue meds Status: Acute Qualifiers: Atrial fibrillation type: unspecified Qualified Code(s): I48.91 - Unspecified atrial fibrillation (2) DVT (deep venous thrombosis): Continue anticoagulation Status: Acute Qualifiers: Chronicity: acute DVT location: non-extremity vein Qualified Code(s): I82.90 - Acute embolism and thrombosis of unspecified vein (3) Gangrene associated with type 2 diabetes mellitus: As defined above we have given the patient's choice regarding attempt for revascularization. I have detailed discussion with him I have explained him in detail all the risk benefit and alternative for the procedure by myself I have explained him that during procedure embolization may can cause acute leg leading to permanent disability of nerve damage amputation of the leg at the same time he is high risk for bleeding due to renal failure and being on anticoagulation along with chronic disease. Status: Acute Consult Attestations Medical Necessity Statement: Require continuation hospitalization for above defined care. Coding Level of Care Code Established Pt [facility] Director for Breanna Aguero Patient Type Established History Detailed Exam Detailed Medical Decision Making Moderate Complexity Diagnoses Atrial fibrillation I48.91 Atrial fibrillation type: unspecified DVT (deep venous thrombosis) I82.90 Chronicity: acute DVT location: non-extremity vein Gangrene associated with type 2 diabetes mellitus E11.52
[2020-10-06] MEDS: losartan 50 mg Tablet 100 MG PO (20:22)
[2020-10-06] MEDS: citalopram 20 mg Tablet PO (20:22)
[2020-10-06] MEDS: insulin glargine 100 units/1 mL 12 UNIT SUBCUT (20:27)
[2020-10-06 20:32] LABS: Glucose Point of Care 215 mg/dL (70-110)
[2020-10-07] VITALS (7 sets, daily range): BP systolic 106–152; BP diastolic 63–78; PULSE 70–103; RESP 17–18; TEMP 36.6–37.2; O2SAT 97–99
[2020-10-07] MEDS: HYDROcodone-acetaminophen 5-325 mg Tablet 1 TAB PO ×3 (03:31→14:06)
[2020-10-07 04:59] LABS: Basophils % 0.2 %; Eosinophils # 1.1 10^3/uL (0.0-0.8); Eosinophils % 8.3 %; Hematocrit 25.9 % (42.0-52.0); Hemoglobin 7.7 g/dL (11.7-16.6); Lymphocytes # 1.3 10^3/uL (0.8-4.8); Lymphocytes % 9.8 %; Mean Corpuscular HGB Conc 29.7 g/dL (30.0-36.0); Mean Corpuscular Hemoglobin 28.4 pg (28.0-34.0); Mean Corpuscular Volume 95.6 fL (80-94); Mean Platelet Volume 9.5 fL (7.4-10.4); Monocytes # 1.3 10^3/uL (0.2-0.9); Monocytes % 9.6 %; Neutrophils % 70.6 %; Nucleated Red Blood Cells % 0 %; Platelet Count 240 10^3/cmm (130-400); Red Blood Count 2.71 10^6/uL (4.1-5.3); Red Cell Distribution Width 17.9 % (12.1-15.1); White Blood Count 13.1 10^3/uL (4.0-10.0)
[2020-10-07] MEDS: sennosides-docusate Tablet 1 TAB PO (05:18)
[2020-10-07] MEDS: NON-FORMULARY MEDICATION 100 EACH PO (05:18)
[2020-10-07] MEDS: atorvastatin 40 mg Tablet 20 MG PO (05:18)
[2020-10-07] MEDS: pantoprazole DR 40 mg Tablet PO (05:18)
[2020-10-07] MEDS: levothyroxine 75 mcg Tablet 150 MCG PO (05:25)
[2020-10-07] MEDS: Dianeal low Ca w/2.5% dex 2,000 mL Bag 2000 ML INTRAPERIT ×2 (05:27→10:04)
[2020-10-07 05:40] LABS: Alanine Aminotransferase 18 U/L (0-41); Albumin Level 2.2 g/dL (3.5-5.2); Alkaline Phosphatase 97 IU/L (40-130); Anion Gap 14.1 (5-19); Aspartate Amino Transferase 13 U/L (0-40); Blood Urea Nitrogen 54 mg/dL (8-23); Calcium 9.1 mg/dL (8.5-10.5); Carbon Dioxide 27 mmol/L (22-29); Chloride 95 mmol/L (98-107); Globulin 3.1 g/dL (1.3-4.6); Glomerular Filtration Rate 8.8 mL/min (90-130); Glucose 153 mg/dL (65-115); Magnesium 1.8 mg/dL (1.7-2.3); Osmolality Calculated 292 mOsm/kg (285-295); Phosphorus 4.8 mg/dL (2.5-4.5); Potassium 4.1 mmol/L (3.5-5.1); Sodium 132 mmol/L (136-145); Total Bilirubin 0.2 mg/dL (0.15-1.2); Total Protein 5.3 g/dL (6.6-8.7)
[2020-10-07 05:45] LABS: Calcium 8.8 mg/dL (8.5-10.5)
[2020-10-07 06:34] LABS: Glucose Point of Care 201 mg/dL (70-110)
[2020-10-07 06:44] LABS: 25 Hydroxy Vitamin D 44 ng/mL (30-100)
[2020-10-07 06:51] LABS: Parathyroid Hormone 80.2 pg/mL (15-65)
--- NOTE | 2020-10-07 06:54 | PC.NURSE ---
Report to Milka CALVERT. Patient's last PD was at 0530.
--- NOTE | 2020-10-07 07:14 | USCV_ITS ---
Levi Bonilla Age: 65 Gender: M : 1955 Exam Date: 10/07/2020 07:35 Ordering Phys: Day Hackett MD Technologist: Deyanira Friedman Exam Location[place] [facility] [place] Indication: infective endocarditis BP: / HR: 90 Rhythm: Sinus Technical Quality: Adequate MEASUREMENTS (Male / Female) Normal Values 2D ECHO LV Diastolic Diameter PLAX 5.7 cm 4.2 - 5.9 / 3.9 - 5.3 cm LV Systolic Diameter PLAX 4.4 cm LV Chamber Size 4.1 cm IVS Diastolic Thickness 1.5 cm 0.6 - 1.0 / 0.6 - 0.9 cm IVS Systolic Thickness 1.1 cm LVPW Diastolic Thickness 1.5 cm 0.6 - 1.0 / 0.6 - 0.9 cm LVPW Systolic Thickness 2.5 cm RV Chamber Size 4.1 cm LVOT Diameter 2.0 cm LV Ejection Fraction 2D Teich 45.3 % LV Ejection Fraction MOD 2C 56.0 % LV Ejection Fraction 2C AL 55.1 % LA Diameter 3.4 cm LA Width 4.4 cm LA Height 5.1 cm RA Width 4.0 cm RA Height 6.0 cm Aorta at Sinotubular Diameter 2.7 cm M-MODE LV Diastolic Diameter MM 7.8 cm 4.2 - 5.9 / 3.9 - 5.3 cm LV Systolic Diameter MM 6.2 cm LV Ejection Fraction MM Teich 40.8 % IVS Diastolic Thickness MM 0.8 cm 0.6 - 1.0 / 0.6 - 0.9 cm IVS Systolic Thickness MM 1.2 cm LVPW Diastolic Thickness MM 1.0 cm 0.6 - 1.0 / 0.6 - 0.9 cm LVPW Systolic Thickness MM 1.4 cm Aortic Annulus Diameter 3.6 cm LA Ao Ratio MM 1.1 MV E Point Septal Separation 0.4 cm DOPPLER AV Peak Velocity 264.3 cm/s LVOT Peak Velocity 127.0 cm/s AV Area Cont Eq vti 1.9 cm squared AV Area Cont Eq pk 1.6 cm squared MV Area PHT 4.9 cm squared Mitral E to A Ratio 3.7 MV E' Velocity 66.0 cm/s Mitral E to MV E' Ratio 8.4 Mitral E to LV E' Lateral Ratio 6.0 Mitral E to LV E' Septal Ratio 13.8 TR Peak Velocity 218.5 cm/s TR Peak Gradient 19.1 mmHg TV Peak E Velocity 67.0 cm/s Right Atrial Pressure 8.0 mmHg Pulmonary Artery Systolic Pressu 27.1 mmHg PV Peak Velocity 94.0 cm/s RV Acceleration Time 0.1 s RV Ejection Time 0.3 s RV AcT/ET 0.4 FINDINGS Left Ventricle Normal left ventricular cavity size. Normal left ventricular systolic function. Left ventricular ejection fraction is estimated at 55-60 %. No diagnostic regional wall motion abnormality. Abnormal septal motion consistent with conduction abnormality. Right Ventricle Right ventricle not well visualized. Probably normal right ventricle systolic function. Right ventricular systolic pressure 37 mmHg. Right Atrium Normal right atrial size. Right atrial pressure estimated at 15 mmHg. Left Atrium Mildly increased left atrial size. Mitral Valve Mild mitral annular calcification. Mildly thickened mitral valve. No mitral valve stenosis. Trace mitral valve regurgitation. Aortic Valve Mildly thickened trileaflet aortic valve. Aortic valve sclerosis without stenosis. No aortic valve regurgitation. Tricuspid Valve Structurally normal tricuspid valve. Pulmonic Valve Trace pulmonary valve regurgitation. Pericardium No pericardial effusion. Dilated inferior vena cava with decreased respiratory variation. Aorta Normal-sized aortic root. CONCLUSIONS 1. Normal left ventricular cavity size and systolic function. Left ventricular ejection fraction is estimated at 55-60 %. No diagnostic regional wall motion abnormality. 2. Probably normal right ventricle systolic function. 3. Right atrial pressure estimated at 15 mmHg. 4. Pulmonary artery pressure estimated at 37 mmHg. 5. No evidence of valvular vegetation based on the study. However given technically difficult study, CARYN is recommended if clinically indicated. Radha Peterson MD (Electronically Signed) Final Date: 07 October 2020 16:16 S
[2020-10-07] MEDS: polyethylene glycol 3350 Pkt 17 gm PO (08:22)
[2020-10-07] MEDS: calcium acetate 667 mg Capsule 1334 MG PO (08:23)
[2020-10-07] MEDS: dilTIAZem 60 mg Tablet PO (08:23)
[2020-10-07] MEDS: cloNIDine 0.1 mg Tablet PO (08:23)
[2020-10-07] MEDS: amoxicillin-clav 500-125 mg Tablet 1 TAB PO (08:23)
[2020-10-07] MEDS: iron polysaccharide complex 150 mg Capsule PO (08:24)
[2020-10-07] MEDS: hyDRALAzine 50 mg Tablet PO (08:24)
[2020-10-07] MEDS: metoprolol tartrate 50 mg Tablet PO (08:24)
--- NOTE | 2020-10-07 10:09 | PM.PN ---
Subjective Subjective: Interval history: anxious. leg edema, weak. denies sob or cp. has shoulder pain. states good appetite. Medications: Reviewed: Yes Medication Review Details: Current Medications Acetaminophen (Acetaminophen 500 Mg Tablet) 1,000 mg PO PRN [facility] Last Admin: 10/06/20 03:29 Dose: 1,000 mg Documented by: Hydrocodone Bitart/Acetaminophen (Hydrocodone-Acetaminophen 5-325 Mg Tablet) 1 tab PO Q4H PRN PRN Reason: MODERATE PAIN Last Admin: 10/07/20 09:59 Dose: 1 tab Documented by: Amoxicillin/Clavulanate Potassium (Amoxicillin-Clav 500-125 Mg Tablet) 1 tab PO BID [facility]; Protocol Last Admin: 10/07/20 08:23 Dose: 1 tab Documented by: Atorvastatin Calcium (Atorvastatin 40 Mg Tablet) 20 mg PO QAM [facility] Last Admin: 10/07/20 05:18 Dose: 20 mg Documented by: Calcium Acetate (Calcium Acetate 667 Mg Capsule) 1,334 mg PO TIDWM [facility] Last Admin: 10/07/20 08:23 Dose: 1,334 mg Documented by: Citalopram Hydrobromide (Citalopram 20 Mg Tablet) 20 mg PO BEDTIME [facility] Last Admin: 10/06/20 20:22 Dose: 20 mg Documented by: Clonidine HCl (Clonidine 0.1 Mg Tablet) 0.1 mg PO BID [facility] Last Admin: 10/07/20 08:23 Dose: 0.1 mg Documented by: Cyclobenzaprine HCl (Cyclobenzaprine 10 Mg Tablet) 5 mg PO Q8H PRN PRN Reason: muscle spasms Last Admin: 10/06/20 20:32 Dose: 5 mg Documented by: Dextrose (Dextrose 50% Syringe 50 Ml) 25 ml IVP ONCE PRN; Protocol PRN Reason: hypoglycemia protocol Dextrose (Dextrose 50% Syringe 50 Ml) 50 ml IVP PRN PRN; Protocol PRN Reason: hypoglycemia protocol Diltiazem HCl (Diltiazem 60 Mg Tablet) 60 mg PO TID [facility] Last Admin: 10/07/20 08:23 Dose: 60 mg Documented by: Enoxaparin Sodium (Enoxaparin 100 Mg/Ml Syringe) 100 mg SUBCUT Q24H [facility] Last Admin: 10/06/20 17:33 Dose: 100 mg Documented by: Enoxaparin Sodium (Enoxaparin 40 Mg/0.4 Ml Syringe) 40 mg SUBCUT Q24H [facility] Last Admin: 10/06/20 17:33 Dose: 40 mg Documented by: Ergocalciferol (Ergocalciferol (Vitamin D2) 50,000 Unit Capsule) 50,000 unit PO Q7D [facility] Last Admin: 10/04/20 22:47 Dose: 50,000 unit Documented by: Gentamicin Sulfate (Gentamicin 0.1% Cream 15 Gm) 1 applic TOPICAL DAILY [facility] Last Admin: 10/07/20 10:01 Dose: 1 applic Documented by: Glucagon (Glucagon 1 Mg/Ml Inj 1 Ml) 1 mg IM ONCE PRN; Protocol PRN Reason: Adult Acute Hypoglycemia Prot. Hydralazine HCl (Hydralazine 50 Mg Tablet) 50 mg PO TID [facility] Last Admin: 10/07/20 08:24 Dose: 50 mg Documented by: Dextrose (D5w) 500 mls @ 100 mls/hr IV ONCE PRN; Protocol PRN Reason: Adult Acute Hypoglycemia Prot Insulin Aspart (Insulin Aspart 100 Unit/1 Ml) 0 unit SUBCUT WM&BEDTIME [facility]; Protocol Last Admin: 10/07/20 08:22 Dose: 6 unit Documented by: Insulin Glargine (Insulin Glargine 100 Units/1 Ml) 12 unit SUBCUT BEDTIME [facility] Last Admin: 10/06/20 20:27 Dose: 12 unit Documented by: Levofloxacin (Levofloxacin 750 Mg Tablet) 750 mg PO EVERY OTHER DAY [facility]; Protocol Last Admin: 10/06/20 08:40 Dose: 750 mg Documented by: Levothyroxine Sodium (Levothyroxine 75 Mcg Tablet) 150 mcg PO QAM [facility] Last Admin: 10/07/20 05:25 Dose: 150 mcg Documented by: Losartan Potassium (Losartan 50 Mg Tablet) 100 mg PO BEDTIME [facility] Last Admin: 10/06/20 20:22 Dose: 100 mg Documented by: Metoprolol Tartrate (Metoprolol Tartrate 50 Mg Tablet) 50 mg PO BID [facility] Last Admin: 10/07/20 08:24 Dose: 50 mg Documented by: Non-Formulary Medication (Paricalcitol [Zemplar]) 1 mcg PO QAM [facility] Last Admin: 10/07/20 06:16 Dose: Not Given Documented by: Non-Formulary Medication (Renal Factor Plus) [facility] Last Admin: 10/07/20 06:16 Dose: Not Given Documented by: Non-Formulary Medication (Iodosorb (Cadexomer Iodine Gel)) 1 each TOPICAL DAILY [facility] Last Admin: 10/07/20 10:01 Dose: 1 each Documented by: Non-Formulary Medication (Non-Formulary Medication) 100 each PO QAM [facility] Last Admin: 10/07/20 05:18 Dose: 100 each Documented by: Pantoprazole Sodium (Pantoprazole Dr 40 Mg Tablet) 40 mg PO QAM [facility] Last Admin: 10/07/20 05:18 Dose: 40 mg Documented by: Peritoneal Dialysis Solution (Dianeal Low Ca W/2.5% Dex 2,000 Ml Bag) 2,000 ml INTRAPERIT 5XD [facility] Last Admin: 10/07/20 10:04 Dose: 2,000 ml Documented by: Polyethylene Glycol (Polyethylene Glycol 3350 Pkt 17 Gm) 17 gm PO BID [facility] Last Admin: 10/07/20 08:22 Dose: 17 gm Documented by: Polysaccharide Iron Complex (Iron Polysaccharide Complex 150 Mg Capsule) 150 mg PO BID [facility] Last Admin: 10/07/20 08:24 Dose: 150 mg Documented by: Vitals/I&O/Wt Last Vital Signs Temp 98.3 F 10/07/20 07:50 Pulse 103 H 10/07/20 07:50 Resp 17 10/07/20 07:50 BP 118/77 10/07/20 08:23 Pulse Ox 97 10/07/20 07:50 10/06/20 10/07/20 10/07/20 22:59 06:59 14:59 Intake Total 240 / 840 500 / 1340 360 / 360 Balance 240 / 840 500 / 1340 360 / 360 Weight last 48 hrs Weight 143.335 kg Weight 142.519 kg Physical Exam Narrative: EXAM NARRATIVE: comfortable, nard, vss heent- nc/at, eomi neck no jvp lungs clear heart reg, no rub abd soft, nt, nd ext foot ulcer, 2+ edema LUE AVF w/ thrill and bruit pulses poor Data : 10/07/20 04:35 10/07/20 04:35 Micro: Microbiology 09/30/20 01:06 Blood Culture - Final Blood Pseudomonas aeruginosa A&P Additional A&P Information 1. ESRD on PD. CAPD in-house, 2 L, 2.5%, 5xdaily We will adjust PD prescription accordingly during his hospitalization, however, he did well this last admission. Dose medications for GFR less than 15 on PD. -i discussed w/ pt that he is on many anti-htn meds and has edema. 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 Right upper extremity DVT, adjacent to PICC. catheter removed 3. ID issues MSSA osteomyelitis, outpatient he was on IV Rocephin Pseudomonas bacteremia, concern for septic arthropathy of the right shoulder, POD 2 arthroscopy and washout Doxycycline and LEvaquin on board -s/p I and D of RUE glenohumeral head 4. PVD- for angiogram next week 5. Anemia. Iron sat low on Ferrex, EPO dosing - may be resistant w/ infection d/c iv iron w/ ferritin of 1904 6. Hyperphosphatemia. On PhosLo -repeat phos acceptable- changing to a non- calcium based binder 6b. check vit d levels- on po vit d -d/c rocaltrol as pth 80 7. a fib 8. d/c allopurinol 300 d. uric acid level 4.6 acceptable- monitor off of allopurinol, as ESRD Patient seen and examined via telemedicine, with the assistance of the bedside RN > 25 min spent in evaluation and mgmt of patient Attestations Medical Necessity Statement*: per hospitalist Time Spent in Patient Care: Greater than 35 minutes Coding Level of Care Code Acute Commission Clerk for Breanna Aguero
--- NOTE | 2020-10-07 11:30 | P.DS_ITS ---
Discharge Providers Date of Admission: 09/27/20 23:06 Date of Discharge: October 07, 2020 Attending Provider at Admission: Salvador Nguyen MD Attending Provider at Discharge: Kory Sosa MD Primary Care Provider: Anmol Santiago Diagnoses at Discharge Discharge Diagnosis (1) Diabetic peripheral neuropathy associated with type 2 diabetes mellitus: Status: Acute (2) ESRD (end stage renal disease): Status: Acute (3) Non-pressure chronic ulcer of other part of right foot with necrosis of bone: Status: Acute Reason for Visit Reason for Visit: POSS BLOOD CLOT IN R ARM PER PCP Hospital Course Hospital Course Levi Bonilla is a 65 year old male with PMH DM2, gout, peripheral neuropathy, HTN, CKD on PD who I had last seen on an inpatient consult on 08/18 when he had presented with gas gangrene status post or debridement on 08/15, intraoperatively changes were noted to extend down to the level of the joint capsule. Devitalized soft tissue and bone was noted on the right foot including involvement of the proximal phalanx of the right hallux. Antibiotic impregnated cement spacer was placed on this day and a wound VAC placed. OR cultures had remained negative, wound cultures previously from an ulcer that was overlying this area had shown MSSA and group B streptococcus. Arterial Doppler at the time had not shown any high-grade occlusion and venous Duplex was without DVT. He had previously reported history is of MSSA PJI infections of his left knee and peritoneal dialysis catheter. He was treated with IV vancomycin and Zosyn initially while he was inpatient and this was narrowed down to ceftriaxone 2 g every 24 hour for the next 6 weeks via PICC line. He was planned to follow-up in the ID clinic on September 28, however presented to the ER due to right upper extremity swelling and was found to have a right IJ DVT. He has followed with podiatry as an outpatient wherein he is noted to have a persistently elevated ESR and leukocytosis. His wound over the foot however was noted to be healing well without any overt signs of infection as of his last visit on September 20, 2020 at the podiatry clinic. On September 27 he presented to the ER with A. fib RVR, right IJ DVT, for which she was started on heparin infusion and Cardizem gtt. This was most likely to be PICC line associated DVT. Per review of notes he was also noted to have swelling tenderness and erythema around the site of PICC insertion. Eventually he was found to have positive blood cultures for Pseudomonas aeruginosa on September 27 and then again on September 30. He was started on oral Levaquin and doxycycline which was later changed to Levaquin and Augmentin as per the culture results. ID was consulted for the same reasons. IV access has been an ongoing problem this admission, patient currently has peripheral IV lines after removal of PICC line on 10/01. Left arm is being preserved as he has an AV fistula on that side in anticipation of moving to HD down the line. Due to need for continuing multiple other medications through the IV line it was decided to switch antibiotics to highly bioavailable oral antibiotics by way of levofloxacin to cover for Pseudomonas aeruginosa bacteremia (isolate confirmed to be susceptible) and doxycycline for known MSSA osteomyelitis. He was evaluated by Dr. Woodall from podiatry during this current admission as well. Right foot x-ray shows stable osteomysis, no new changes, ABIs unable to be obtained due to noncompressible vessels, waveforms shows normal amplitude with loss of dicrotic notch, Patient is adamant to continue limb salvage. He has a chronic wound over the site of previous surgery for which wound vac had been placed, discontinued after approximately 3 weeks. Currently there is no gross sign of cellulitis at the site. Wound with red healthy appearing granulation tissue at base, underlying bone exposed. Other notable events this admission include B/L shoulder joint pain, effusion of Right shoulder joint (same side as RIJ DVT) for which patient underwent arthroscopic debridement of right shoulder on 10/04/20. He had previously undergone aspiration of this joint on 10/02 with return of cloudy fluid. Cell count from this aspirate at 116. For nonhealing painful ulcer cardiology was consulted and patient underwent CTA abdomen pelvis with aorta runoff which was consistent with calcified blood vessels below knee. Cardiology recommended for patient to underwent peripheral angiogram and possible peripheral angioplasty as an outpatient. Patient is to see cardiology early next week for the same procedure. He is been discharged hemodynamically stable condition on oral Augmentin and Levaquin for next 6 weeks, Eliquis as per DVT protocol for at least next 3 months with advised to follow-up with cardiology for peripheral angiogram early next week, Dr. Woodall in next 2 weeks, wound care clinic early next week for possible hyperbaric treatment, ID clinic in next 2 weeks. Physical Exam Const: COMMON NORMALS: no acute distress, patient oriented x3 and alert GENERAL APPEARANCE: cooperative and comfortable ORIENTATION/CONSCIOUSNESS: Yes awake HENMT: COMMON NORMALS: oropharynx normal Neck/C-Spine: COMMON NORMALS: no JVD Resp: COMMON NORMALS: normal respiratory effort and clear to auscultation bilaterally AUSCULTATION: clear to auscultation bilaterally Cardio: COMMON NORMALS: no JVD, regular rhythm, S1 normal heart sound present, S2 normal heart sound present and No murmurs present (Cardio) RHYTHM: regular rhythm HEART SOUNDS: S1 normal heart sound present and S2 normal heart sound present GI: COMMON NORMALS: Normal to inspection, nondistended, normoactive bowel sounds present, Soft to palpation and non-tender PALPATION: Yes Soft to palpation Extremity: COMMON NORMALS: no joint enlargement GENERAL: Yes edema (2-3+ bilateral lower extremity edema) OTHER: Swelling of RUE decreasing. R shoulder swelling. He is regained quite a bit of mobility especially in the distal arm. Only mild edema currently. No expansion of the wound of R hallux. No drainage. Neuro: COMMON NORMALS: patient oriented x3 and moves all extremities SENSORIUM/ORIENTATION: Yes alert Skin: COMMON NORMALS: no rashes or lesions noted GENERAL SKIN EXAM: no rashes or lesions noted Discharge Data Data Completed and Pending: Completed Studies During Hospitalization Category Date Time Status CT angio abd aort a runof [id number] Rout ine Cat Scan 10/05/20 09:[address] chest abd pel w con* Routine Cat Scan 10/02/20 09:43 Completed XR chest 1V ankur ble [id number] Routine Exams 09/28/20 08:00 Completed XR foot RT min 3V * [id number] Routine Exams 09/29/20 07:58 Completed XR foot RT min 3V * [id number] Routine Exams 10/05/20 12:45 Completed MR shoulder RT wo con* [id number] Urgent MRI 09/30/20 15:39 [place] [id number] Rout ine Ultrasound 09/29/20 07:59 [place] [id number] Routin e Ultrasound 09/30/20 09:14 [place] [id number] Urgent Ultrasound 09/27/20 18:01 Completed US soft tissue/ex tremity [id number] Rout ine Ultrasound 10/02/20 09:43 Completed Pending at discharge Category Date Time Status ES surgery / GI i mages Routine Exams 10/04/20 13:34 Taken Complete Blood Co unt w/Auto AM LABS Lab 10/08/20 04:00 Ordered Complete Blood Co unt w/Auto AM LABS Lab 10/09/20 04:00 Ordered Comprehensive Met abolic Panel AM LA BS Lab 10/08/20 04:00 Ordered Comprehensive Met abolic Panel AM LA BS Lab 10/09/20 04:00 Ordered Magnesium AM LABS Lab 10/08/20 04:00 Ordered Magnesium AM LABS Lab 10/09/20 04:00 Ordered Phosphorus AM LAB S Lab 10/08/20 04:00 Ordered Phosphorus AM LAB S Lab 10/09/20 04:00 Ordered Vitamin D 1,25 Di hydroxy Routine Lab 10/06/20 10:20 Received CV echo complete* [id number] Routine Ultrasound 10/07/20 07:14 Taken Labs from last 24 hours 10/07/20 10/07/20 10/07/20 06:22 04:35 04:35 WBC RBC Hgb Hct MCV MCH MCHC RDW Plt Count MPV Neut % (Auto) Lymph % (Auto) [place] % (Auto) Eos % (Auto) Baso % (Auto) Neut # (Auto) Lymph # (Auto) [place] # (Auto) Eos # (Auto) Baso # (Auto) Nucleated RBC % (a uto) Nucleated RBCs # Sodium 132 L Potassium 4.1 Chloride 95 L Carbon Dioxide 27 Anion Gap 14.1 BUN 54 H Creatinine 6.4 H* GFR Calculation 8.8 L Glucose 153 H POC Glucose 201 H Calculated Osmolal ity 292 Uric Acid Calcium 9.1 Phosphorus 4.8 H Magnesium 1.8 Ferritin Total Bilirubin 0.2 AST 13 ALT 18 Alkaline Phosphata se 97 Total Protein 5.3 L Albumin 2.2 L Globulin 3.1 25-OH Vitamin D To tiffanie 44 PTH Intact 80.2 H Calcium (PTH Intac t) 8.8 10/07/20 10/06/20 10/06/20 04:35 20:16 16:43 WBC 13.1 H RBC 2.71 L Hgb 7.7 L Hct 25.9 L MCV 95.6 H MCH 28.4 MCHC 29.7 L RDW 17.9 H Plt Count 240 MPV 9.5 Neut % (Auto) 70.6 Lymph % (Auto) 9.8 [place] % (Auto) 9.6 Eos % (Auto) 8.3 Baso % (Auto) 0.2 Neut # (Auto) 9.20 H Lymph # (Auto) 1.3 [place] # (Auto) 1.3 H Eos # (Auto) 1.1 H Baso # (Auto) 0.0 Nucleated RBC % (a uto) 0 Nucleated RBCs # 0.0 Sodium Potassium Chloride Carbon Dioxide Anion Gap BUN Creatinine GFR Calculation Glucose POC Glucose 215 H 233 H Calculated Osmolal ity Uric Acid Calcium Phosphorus Magnesium Ferritin Total Bilirubin AST ALT Alkaline Phosphata se Total Protein Albumin Globulin 25-OH Vitamin D To tiffanie PTH Intact Calcium (PTH Intac t) 10/06/20 10/06/20 10:58 10:20 WBC RBC Hgb Hct MCV MCH MCHC RDW Plt Count MPV Neut % (Auto) Lymph % (Auto) [place] % (Auto) Eos % (Auto) Baso % (Auto) Neut # (Auto) Lymph # (Auto) [place] # (Auto) Eos # (Auto) Baso # (Auto) Nucleated RBC % (a uto) Nucleated RBCs # Sodium 134 L Potassium 4.0 Chloride 97 L Carbon Dioxide 26 Anion Gap 15.0 BUN 57 H Creatinine 6.3 H* GFR Calculation 8.9 L Glucose 225 H POC Glucose 273 H Calculated Osmolal ity 301 H Uric Acid 4.6 Calcium 8.8 Phosphorus Magnesium Ferritin 1904 H Total Bilirubin 0.2 AST 15 ALT 19 Alkaline Phosphata se 99 Total Protein 5.5 L Albumin 2.4 L Globulin 3.1 25-OH Vitamin D To tiffanie PTH Intact Calcium (PTH Intac t) Vitals: Last Vital Signs Temp 98.3 F 10/07/20 07:50 Pulse 103 H 10/07/20 07:50 Resp 17 10/07/20 07:50 BP 118/77 10/07/20 08:23 Pulse Ox 97 10/07/20 07:50 Discharge Plan Discharge Patient Disposition: Home Condition: Stable Prescriptions: New hydralazine 25 mg Tablet 25 mg PO TID 30 Days Qty: 90 RF: 0 levofloxacin 750 mg Tablet 750 mg PO EVERY OTHER DAY 42 Days Qty: 21 RF: 0 amoxicillin-pot clavulanate 500-125 mg Tablet 1 tab PO BID 42 Days Qty: 84 RF: 0 Eliquis DVT-PE Treat 30D Start 5 mg (74 tabs) tablets,dose pack See Rx Instructions .ROUTE .COMPLEX Qty: 74 RF: 0 hydrocodone-acetaminophen 5-325 mg Tablet 1 tab PO Q8H PRN (Reason: Moderate Pain) Qty: 15 RF: 0 Continued Iodosorb 0.9 % gel 40 g topical Q3D Qty: 40 RF: 0 (DME) Post Operative darco shoe See Rx Instructions .Route .MEDSUPPLY Qty: 1 RF: 0 cyclobenzaprine 10 mg tablet 5 mg PO Q8H PRN (Reason: muscle spasms) RF: 0 torsemide 100 mg tablet 100 mg PO QAM RF: 0 levothyroxine 150 mcg tablet 150 mcg PO QAM RF: 0 megestrol 40 mg tablet 40 mg PO DAILY RF: 0 mupirocin calcium 2 % cream See Rx Instructions .ROUTE .COMPLEX RF: 0 ergocalciferol (vitamin D2) 1,250 mcg (50,000 unit) capsule 1,250 mcg PO Q7D RF: 0 losartan 100 mg tablet 100 mg PO BEDTIME RF: 0 atorvastatin 20 mg tablet 20 mg PO QAM RF: 0 tramadol 50 mg tablet 50 - 100 mg PO Q8H PRN (Reason: Pain) RF: 0 citalopram 20 mg tablet 20 mg PO BEDTIME RF: 0 amlodipine 10 mg tablet 10 mg PO BEDTIME RF: 0 pantoprazole 40 mg tablet,delayed release (DR/EC) 40 mg PO QAM RF: 0 allopurinol 300 mg tablet 300 mg PO QAM RF: 0 clonidine HCl 0.1 mg tablet 0.1 mg PO BID RF: 0 paricalcitol [Zemplar] 1 mcg Capsule 1 mcg PO QAM RF: 0 peritoneal dialysis solution See Rx Instructions .ROUTE .COMPLEX RF: 0 glipizide 5 mg tablet 7.5 mg PO DAILY 30 Days Qty: 45 RF: 0 Ferrex 150 150 mg iron capsule 150 mg PO BID RF: 0 aspirin 81 mg Tablet,Delayed Release (Dr/Ec) 81 mg PO QPM RF: 0 Tylenol Extra Strength 500 mg Tablet 1,000 mg PO PRN RF: 0 sodium chloride 0.9 % Piggyback See Rx Instructions .ROUTE .COMPLEX RF: 0 Renal Factor Plus 1 tab PO QAM RF: 0 Changed metoprolol tartrate 50 mg tablet 75 mg PO BID Qty: 0 RF: 0 Discontinued ceftriaxone 1 gram recon soln 1 g IV DAILY Qty: 42 RF: 0 Discharge Orders: Discharge Order (Routine); Ordered 10/07/20 Ordered By: Kory Sosa Referrals: Anmol Santiago [Primary Care Provider] - 10/14/20 10:00 am Frankie Woodall DPM [Physician] - 2 weeks (Please call [facility] and set up an appointment to see Dr. Woodall.) Day Hackett MD [Hospitalist] - 10/26/20 9:40 am Salvador Jaime MD [Physician] - 10/14/20 1:30 pm [facility], [Staff Physician] - (possible hyperbaric treatment) Discharge Diet: Usual diet Discharge Activity: Resume usual activity Patient Instructions: Amoxicillin/Clavulanate Potassium (By mouth), Hydralazine (By mouth), Levofloxacin (By mouth), Apixaban (By mouth), Osteomyelitis (GEN), Deep Venous Thrombosis (DC), Chronic Hypertension (DC) Activity Restrictions/Additional Instructions: She will require antibiotics including Augmentin and levofloxacin for next 6 weeks. While he is on the antibiotics he needs to get CBC and CMP weekly. Please follow-up with Dr. Woodall in 2 weeks. Please follow-up with wound care with Dr. Woodlal in 2 weeks. Please follow-up with ID in 2 weeks. Please follow-up with Dr. Jaime early next week for possible peripheral angiogram and peripheral balloon angioplasty as discussed. Discharge Attestations Time Spent in Discharge Care*: greater than 30 min Specific Discharge Activities: educating patient, educating and/or supporting family/caregiver, discussing with pcp/other providers, discussing with medical case worker/social workers/dc planners, documenting/other paperwork and evaluating patient/reviewing data Status at Discharge: Cognitive status at discharge: cognitively intact , Behavioral status at discharge: cooperative , Functional status at discharge: uses cane/walker Overall status at discharge: patient is back to baseline Quality Metrics Clinical Quality Measures During this hospital stay, did patient experience: None Coding Level of Care Code Acute Bead Cutter for [facility] Fwd Exam Comprehensive Diagnoses Diabetic peripheral neuropathy associated with type 2 diabetes mellitus E11.42 ESRD (end stage renal disease) N18.6 Non-pressure chronic ulcer of other part of right foot with necrosis of bone L97.514
[2020-10-07 11:38] LABS: Glucose Point of Care 208 mg/dL (70-110)
[2020-10-07] MEDS: epoetin alfa 10,000 unit/mL INJ 10000 UNIT SUBCUT (12:05)
[2020-10-07] MEDS: sevelamer 800 mg Tablet 1600 MG PO (12:06)
--- NOTE | 2020-10-07 14:17 | PM.PN ---
Subjective Subjective: Interval history: Infectious disease progress note. No acute events since last seen. Patient underwent CTA with runoff which showed distal peripheral atherosclerotic disease with heavily calcified arteries bilaterally which are likely contributing to poor wound healing. Medications: Reviewed: Yes Medication Review Details: Current Medications Acetaminophen (Acetaminophen 500 Mg Tablet) 1,000 mg PO PRN [facility] Last Admin: 10/06/20 03:29 Dose: 1,000 mg Documented by: Hydrocodone Bitart/Acetaminophen (Hydrocodone-Acetaminophen 5-325 Mg Tablet) 1 tab PO Q4H PRN PRN Reason: MODERATE PAIN Last Admin: 10/07/20 09:59 Dose: 1 tab Documented by: Amoxicillin/Clavulanate Potassium (Amoxicillin-Clav 500-125 Mg Tablet) 1 tab PO BID [facility]; Protocol Last Admin: 10/07/20 08:23 Dose: 1 tab Documented by: Atorvastatin Calcium (Atorvastatin 40 Mg Tablet) 20 mg PO QAM [facility] Last Admin: 10/07/20 05:18 Dose: 20 mg Documented by: Calcium Acetate (Calcium Acetate 667 Mg Capsule) 1,334 mg PO TIDWM [facility] Last Admin: 10/07/20 08:23 Dose: 1,334 mg Documented by: Citalopram Hydrobromide (Citalopram 20 Mg Tablet) 20 mg PO BEDTIME [facility] Last Admin: 10/06/20 20:22 Dose: 20 mg Documented by: Clonidine HCl (Clonidine 0.1 Mg Tablet) 0.1 mg PO BID [facility] Last Admin: 10/07/20 08:23 Dose: 0.1 mg Documented by: Cyclobenzaprine HCl (Cyclobenzaprine 10 Mg Tablet) 5 mg PO Q8H PRN PRN Reason: muscle spasms Last Admin: 10/06/20 20:32 Dose: 5 mg Documented by: Dextrose (Dextrose 50% Syringe 50 Ml) 25 ml IVP ONCE PRN; Protocol PRN Reason: hypoglycemia protocol Dextrose (Dextrose 50% Syringe 50 Ml) 50 ml IVP PRN PRN; Protocol PRN Reason: hypoglycemia protocol Diltiazem HCl (Diltiazem 60 Mg Tablet) 60 mg PO TID [facility] Last Admin: 10/07/20 08:23 Dose: 60 mg Documented by: Enoxaparin Sodium (Enoxaparin 100 Mg/Ml Syringe) 100 mg SUBCUT Q24H [facility] Last Admin: 10/06/20 17:33 Dose: 100 mg Documented by: Enoxaparin Sodium (Enoxaparin 40 Mg/0.4 Ml Syringe) 40 mg SUBCUT Q24H [facility] Last Admin: 10/06/20 17:33 Dose: 40 mg Documented by: Ergocalciferol (Ergocalciferol (Vitamin D2) 50,000 Unit Capsule) 50,000 unit PO Q7D [facility] Last Admin: 10/04/20 22:47 Dose: 50,000 unit Documented by: Gentamicin Sulfate (Gentamicin 0.1% Cream 15 Gm) 1 applic TOPICAL DAILY [facility] Last Admin: 10/07/20 10:01 Dose: 1 applic Documented by: Glucagon (Glucagon 1 Mg/Ml Inj 1 Ml) 1 mg IM ONCE PRN; Protocol PRN Reason: Adult Acute Hypoglycemia Prot. Hydralazine HCl (Hydralazine 50 Mg Tablet) 50 mg PO TID [facility] Last Admin: 10/07/20 08:24 Dose: 50 mg Documented by: Dextrose (D5w) 500 mls @ 100 mls/hr IV ONCE PRN; Protocol PRN Reason: Adult Acute Hypoglycemia Prot Insulin Aspart (Insulin Aspart 100 Unit/1 Ml) 0 unit SUBCUT WM&BEDTIME [facility]; Protocol Last Admin: 10/07/20 08:22 Dose: 6 unit Documented by: Insulin Glargine (Insulin Glargine 100 Units/1 Ml) 12 unit SUBCUT BEDTIME [facility] Last Admin: 10/06/20 20:27 Dose: 12 unit Documented by: Levofloxacin (Levofloxacin 750 Mg Tablet) 750 mg PO EVERY OTHER DAY [facility]; Protocol Last Admin: 10/06/20 08:40 Dose: 750 mg Documented by: Levothyroxine Sodium (Levothyroxine 75 Mcg Tablet) 150 mcg PO QAM [facility] Last Admin: 10/07/20 05:25 Dose: 150 mcg Documented by: Losartan Potassium (Losartan 50 Mg Tablet) 100 mg PO BEDTIME [facility] Last Admin: 10/06/20 20:22 Dose: 100 mg Documented by: Metoprolol Tartrate (Metoprolol Tartrate 50 Mg Tablet) 50 mg PO BID [facility] Last Admin: 10/07/20 08:24 Dose: 50 mg Documented by: Non-Formulary Medication (Paricalcitol [Zemplar]) 1 mcg PO QAM [facility] Last Admin: 10/07/20 06:16 Dose: Not Given Documented by: Non-Formulary Medication (Renal Factor Plus) 1 tab PO QAM [facility] Last Admin: 10/07/20 06:16 Dose: Not Given Documented by: Non-Formulary Medication (Iodosorb (Cadexomer Iodine Gel)) 1 each TOPICAL DAILY [facility] Last Admin: 10/07/20 10:01 Dose: 1 each Documented by: Non-Formulary Medication (Non-Formulary Medication) 100 each PO QAM [facility] Last Admin: 10/07/20 05:18 Dose: 100 each Documented by: Pantoprazole Sodium (Pantoprazole Dr 40 Mg Tablet) 40 mg PO QAM [facility] Last Admin: 10/07/20 05:18 Dose: 40 mg Documented by: Peritoneal Dialysis Solution (Dianeal Low Ca W/2.5% Dex 2,000 Ml Bag) 2,000 ml INTRAPERIT 5XD [facility] Last Admin: 10/07/20 10:04 Dose: 2,000 ml Documented by: Polyethylene Glycol (Polyethylene Glycol 3350 Pkt 17 Gm) 17 gm PO BID [facility] Last Admin: 10/07/20 08:22 Dose: 17 gm Documented by: Polysaccharide Iron Complex (Iron Polysaccharide Complex 150 Mg Capsule) 150 mg PO BID [facility] Last Admin: 10/07/20 08:24 Dose: 150 mg Documented by: Vitals/I&O/Wt Last Vital Signs Temp 98.1 F 10/07/20 11:48 Pulse 91 10/07/20 11:48 Resp 17 10/07/20 11:48 BP 106/72 10/07/20 11:48 Pulse Ox 98 10/07/20 11:48 10/06/20 10/07/20 10/07/20 22:59 06:59 14:59 Intake Total 240 / 840 500 / 1340 600 / 600 Output Total 2200 / 2200 Balance 240 / 840 500 / 1340 -1600 / -1600 Weight last 48 hrs Weight 907.185 kg Weight 143.335 kg Weight 142.519 kg Physical Exam Narrative: EXAM NARRATIVE: GEN: Awake, alert and oriented, no acute distress CVS: S1S2 N RS: CTA B/L Abd: Soft, nt/nd , 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 focal neuro deficits Data : 10/07/20 04:35 10/07/20 04:35 Micro: Microbiology 10/02/20 10:30 Blood Culture - Final Blood NO GROWTH AFTER 5 DAYS 10/02/20 10:24 Blood Culture - Final Blood NO GROWTH AFTER 5 DAYS 09/30/20 01:06 Blood Culture - Final Blood Pseudomonas aeruginosa A&P Assessment and plan (1) Septic thrombophlebitis of upper extremities: Status: Acute (2) Effusion of glenohumeral joint of right upper extremity: Status: Acute (3) Septicemia, Pseudomonas: Status: Acute (4) DVT (deep venous thrombosis): Status: Acute Qualifiers: Chronicity: acute DVT location: non-extremity vein Qualified Code(s): I82.90 - Acute embolism and thrombosis of unspecified vein (5) Diabetic peripheral neuropathy associated with type 2 diabetes mellitus: Status: Acute (6) Chronic disease anemia: Status: Acute (7) ESRD (end stage renal disease): Status: Acute (8) Osteomyelitis: Status: Acute Qualifiers: Osteomyelitis type: unspecified type Osteomyelitis location: foot Laterality: right Qualified Code(s): M86.9 - Osteomyelitis, unspecified Additional A&P Information 65 year old male with PMH DM2, gout, peripheral neuropathy, HTN, CKD on PD with Right foot osteomyelitis for which he is completing 6 weeks of iv ceftriaxone presented on 09/27 with RUE swelling, right shoulder jpoint swelling, found to have partial RIJ DVT and septic thrombophlebitis with Blood cx positive for Pseudomonas aeruginosa #Septic thrombophlebitis from right IJ DVT, associated with PICC line Blood culture positive for Pseudomonas aeruginosa on 09/27 and 09/30 Blood culture clear as of 10/03/2020 PICC line removed 10/01 after appropriate anticoagulation Clot burden appears to be decreasing on serial venous Duplex CT chest abdomen pelvis without signs of distal embolization Check TTE to r/o vegetations Currently on treatment with Levofloxacin which is renally dosed Levofloxacin is chosen over IV cefepime or IV pip/tazo as patient does not currently have a good means of IV access. Right IJ has DVT. Left arm has AV fistula therefore not a candidate for PICC on the side. Counting from October 03, will plan for 4 to 6-week course of directed antibiotic treatment for endovascular infection with an aggressive organism. Unclear source Pseudomonas in the bloodstream. Patient recently had steroid injections into bilateral shoulders, PD site without overt signs of infection, peritoneal culture negative to date. Right shoulder joint was noted to be swollen, aspirate was turbid appearing, however Gram stain and cultures remain negative from this joint. Likely that this is related to rotator cuff tear and effusion of the glenohumeral joint, however septic arthritis cannot be completely excluded. Patient was on treatment for MSSA and group C strep osteomyelitis of the right foot over the last 6 weeks. Wound culture from bedside debridement this current admission are negative to date. His wound itself appears to be healing well, though bone remains exposed. Possibility of Pseudomonas being a causative organism for the osteomyelitis cannot be excluded as cultures were obtained after few days on antibiotics and ESR remained elevated during the course of treatment this past 6 weeks, however clinically this appears to be less likely. #Effusion of joint of right upper extremity, possible septic arthritis #Osteomyelitis of the right hallux, completed 6 weeks of IV Rocephin for MSSA and group C strep isolated on cultures. His wound remains open with bone exposed, ESR remains elevated, however this may be contributed by current DVT. Wound appears to be healing. Likely that poor wound healing is contributed by poor peripheral perfusion as noted on CTA with runoff . We will transition patient to oral antibiotics for an additional 4 to 6 weeks for while he undergoes other vascular intervention. continue Augmentin renally dosed to 500-125 per pharmacy recommendations, this will permit better coverage for streptococcus and anerobes as well. # ESRD: renally dose all antibiotics # DM with peripheral neuropathy: Management per admitting team Thank you for this consult, will follow in infectious disease clinic on 10/26/20 Attestations Medical Necessity Statement*: per admitting note Coding Level of Care Code Acute Computer Education Teacher for Breanna Aguero Diagnoses Septic thrombophlebitis of upper extremities I80.8 Effusion of glenohumeral joint of right upper extremity M25.411 Septicemia, Pseudomonas A41.52 DVT (deep venous thrombosis) I82.90 Chronicity: acute DVT location: non-extremity vein Diabetic peripheral neuropathy associated with type 2 diabetes mellitus E11.42 Chronic disease anemia D63.8 ESRD (end stage renal disease) N18.6 Osteomyelitis M86.9 Osteomyelitis type: unspecified type Osteomyelitis location: foot Laterality: right
--- NOTE | 2020-10-07 14:40 | PC.NURSE ---
Discharge instruction given to patient, at bedside, voiced full understanding. Pharmacy delivered meds, separate prescription obtained and given to patient for pain meds. IV DC'd cath intact ,bleeding controlled with 2x2 and coban. patient to main entrance via wheelchair to private vehicle with zero difficulties.
--- NOTE | 2020-10-07 20:36 | P.PN_ITS ---
Subjective Subjective: Interval history: Today again I have detailed discussion with the patient and his at bedside. They have told me that they are interested in revascularization and would like to take the chance they understand all the risk and benefit of the procedure as defined above. At the same time they would like to discuss it with their primary care physician and emission technician. Medications: Reviewed: Yes Medication Review Details: Current Medications Acetaminophen (Acetaminophen 500 Mg Tablet) 1,000 mg PO PRN [facility] Last Admin: 10/06/20 03:29 Dose: 1,000 mg Documented by: Hydrocodone Bitart/Acetaminophen (Hydrocodone-Acetaminophen 5-325 Mg Tablet) 1 tab PO Q4H PRN PRN Reason: MODERATE PAIN Last Admin: 10/07/20 09:59 Dose: 1 tab Documented by: Amoxicillin/Clavulanate Potassium (Amoxicillin-Clav 500-125 Mg Tablet) 1 tab PO BID [facility]; Protocol Last Admin: 10/07/20 08:23 Dose: 1 tab Documented by: Atorvastatin Calcium (Atorvastatin 40 Mg Tablet) 20 mg PO QAM [facility] Last Admin: 10/07/20 05:18 Dose: 20 mg Documented by: Calcium Acetate (Calcium Acetate 667 Mg Capsule) 1,334 mg PO TIDWM [facility] Last Admin: 10/07/20 08:23 Dose: 1,334 mg Documented by: Citalopram Hydrobromide (Citalopram 20 Mg Tablet) 20 mg PO BEDTIME [facility] Last Admin: 10/06/20 20:22 Dose: 20 mg Documented by: Clonidine HCl (Clonidine 0.1 Mg Tablet) 0.1 mg PO BID [facility] Last Admin: 10/07/20 08:23 Dose: 0.1 mg Documented by: Cyclobenzaprine HCl (Cyclobenzaprine 10 Mg Tablet) 5 mg PO Q8H PRN PRN Reason: muscle spasms Last Admin: 10/06/20 20:32 Dose: 5 mg Documented by: Dextrose (Dextrose 50% Syringe 50 Ml) 25 ml IVP ONCE PRN; Protocol PRN Reason: hypoglycemia protocol Dextrose (Dextrose 50% Syringe 50 Ml) 50 ml IVP PRN PRN; Protocol PRN Reason: hypoglycemia protocol Diltiazem HCl (Diltiazem 60 Mg Tablet) 60 mg PO TID [facility] Last Admin: 10/07/20 08:23 Dose: 60 mg Documented by: Enoxaparin Sodium (Enoxaparin 100 Mg/Ml Syringe) 100 mg SUBCUT Q24H [facility] Last Admin: 10/06/20 17:33 Dose: 100 mg Documented by: Enoxaparin Sodium (Enoxaparin 40 Mg/0.4 Ml Syringe) 40 mg SUBCUT Q24H [facility] Last Admin: 10/06/20 17:33 Dose: 40 mg Documented by: Ergocalciferol (Ergocalciferol (Vitamin D2) 50,000 Unit Capsule) 50,000 unit PO Q7D [facility] Last Admin: 10/04/20 22:47 Dose: 50,000 unit Documented by: Gentamicin Sulfate (Gentamicin 0.1% Cream 15 Gm) 1 applic TOPICAL DAILY [facility] Last Admin: 10/07/20 10:01 Dose: 1 applic Documented by: Glucagon (Glucagon 1 Mg/Ml Inj 1 Ml) 1 mg IM ONCE PRN; Protocol PRN Reason: Adult Acute Hypoglycemia Prot. Hydralazine HCl (Hydralazine 50 Mg Tablet) 50 mg PO TID [facility] Last Admin: 10/07/20 08:24 Dose: 50 mg Documented by: Dextrose (D5w) 500 mls @ 100 mls/hr IV ONCE PRN; Protocol PRN Reason: Adult Acute Hypoglycemia Prot Insulin Aspart (Insulin Aspart 100 Unit/1 Ml) 0 unit SUBCUT WM&BEDTIME [facility]; Protocol Last Admin: 10/07/20 08:22 Dose: 6 unit Documented by: Insulin Glargine (Insulin Glargine 100 Units/1 Ml) 12 unit SUBCUT BEDTIME [facility] Last Admin: 10/06/20 20:27 Dose: 12 unit Documented by: Levofloxacin (Levofloxacin 750 Mg Tablet) 750 mg PO EVERY OTHER DAY [facility]; Protocol Last Admin: 10/06/20 08:40 Dose: 750 mg Documented by: Levothyroxine Sodium (Levothyroxine 75 Mcg Tablet) 150 mcg PO QAM [facility] Last Admin: 10/07/20 05:25 Dose: 150 mcg Documented by: Losartan Potassium (Losartan 50 Mg Tablet) 100 mg PO BEDTIME [facility] Last Admin: 10/06/20 20:22 Dose: 100 mg Documented by: Metoprolol Tartrate (Metoprolol Tartrate 50 Mg Tablet) 50 mg PO BID [facility] Last Admin: 10/07/20 08:24 Dose: 50 mg Documented by: Non-Formulary Medication (Paricalcitol [Zemplar]) 1 mcg PO QAM [facility] Last Admin: 10/07/20 06:16 Dose: Not Given Documented by: Non-Formulary Medication (Renal Factor Plus) 1 tab PO QAM [facility] Last Admin: 10/07/20 06:16 Dose: Not Given Documented by: Non-Formulary Medication (Iodosorb (Cadexomer Iodine Gel)) 1 each TOPICAL DAILY [facility] Last Admin: 10/07/20 10:01 Dose: 1 each Documented by: Non-Formulary Medication (Non-Formulary Medication) 100 each PO QAM [facility] Last Admin: 10/07/20 05:18 Dose: 100 each Documented by: Pantoprazole Sodium (Pantoprazole Dr 40 Mg Tablet) [facility] [place] Admin: 10/07/20 05:18 Dose: 40 mg Documented by: Peritoneal Dialysis Solution (Dianeal Low Ca W/2.5% Dex 2,000 Ml Bag) 2,000 ml INTRAPERIT 5XD [facility] Last Admin: 10/07/20 10:04 Dose: 2,000 ml Documented by: Polyethylene Glycol (Polyethylene Glycol 3350 Pkt 17 Gm) 17 gm PO BID [facility] Last Admin: 10/07/20 08:22 Dose: 17 gm Documented by: Polysaccharide Iron Complex (Iron Polysaccharide Complex 150 Mg Capsule) 150 mg PO BID [facility] Last Admin: 10/07/20 08:24 Dose: 150 mg Documented by: Vitals/I&O/Wt Last Vital Signs Temp 98.1 F 10/07/20 14:47 Pulse 91 10/07/20 14:47 Resp 17 10/07/20 14:47 BP 106/72 10/07/20 14:47 Pulse Ox 98 10/07/20 14:47 10/07/20 10/07/20 10/07/20 06:59 14:59 22:59 Intake Total 500 / 1340 600 / 600 Output Total 2200 / 2200 Balance 500 / 1340 -1600 / -1600 Weight last 48 hrs Weight 2000 lb Weight 316 lb Physical Exam Narrative: EXAM NARRATIVE: GENERAL: Patient is alert, awake and oriented x3. NECK: No jugular vein distension. HEENT: No cyanosis. No icterus. No pallor. HEART: Regular S1 and S2. No murmur, rub or gallop. LUNGS: Clear to auscultate bilaterally. ABDOMEN: Soft, nontender and nondistended. Positive bowel sounds. No guarding, rebound or tenderness. CENTRAL NERVOUS SYSTEM: Grossly nonfocal. EXTREMITIES: Lower extremities without edema bilaterally. Pulses not palpable right foot bandage Data : 10/07/20 04:35 10/07/20 04:35 Micro: Microbiology 10/02/20 10:30 Blood Culture - Final Blood NO GROWTH AFTER 5 DAYS 10/02/20 10:24 Blood Culture - Final Blood NO GROWTH AFTER 5 DAYS 09/30/20 01:06 Blood Culture - Final Blood Pseudomonas aeruginosa A&P Assessment and plan (1) Atrial fibrillation: Rate control anticoagulation continue meds Status: Acute Qualifiers: Atrial fibrillation type: unspecified Qualified Code(s): I48.91 - Unspecified atrial fibrillation (2) DVT (deep venous thrombosis): Continue anticoagulation Status: Acute Qualifiers: Chronicity: acute DVT location: non-extremity vein Qualified Code(s): I82.90 - Acute embolism and thrombosis of unspecified vein (3) Gangrene associated with type 2 diabetes mellitus: As defined above we have given the patient's choice regarding attempt for revascularization. I have detailed discussion with him I have explained him in detail all the risk benefit and alternative for the procedure by myself I have explained him that during procedure embolization may can cause acute leg leading to permanent disability of nerve damage amputation of the leg at the same time he is high risk for bleeding due to renal failure and being on anticoagulation along with chronic disease. On today's visit dated 10/07/2020 patient would like to proceed with the procedure and attempt for revascularization of her right leg in order to salvage the limb. They would like to discuss it with their primary care physician and emission technician. I will await further decision and we will schedule them as an outpatient. I have given patient my cell phone number in case they have any questions I am happy to answer Status: Acute Attestations Medical Necessity Statement*: Require continuation hospitalization for above defined care. Coding Level of Care Code Established Pt Acute Ham Sawyer for Breanna Aguero Patient Type Established History Detailed Exam Detailed Medical Decision Making Moderate Complexity Diagnoses Atrial fibrillation I48.91 Atrial fibrillation type: unspecified DVT (deep venous thrombosis) I82.90 Chronicity: acute DVT location: non-extremity vein Gangrene associated with type 2 diabetes mellitus E11.52
[2020-10-12 14:28] LABS: Vit D 1,25 (Oh)2, Total 11 pg/mL (18-72); Vit D2 1,25 (Oh)2 11 pg/mL; Vit D3 1,25 (Oh)2 <8 pg/mL
== END 2020-10-07 14:40 | disposition home or self-care (01) | DRG 987 ==
LOC: ER 21:11 → ER IP 23:06 → ICU 09-28 03:04 → ER IP 09-28 03:04 → ICU 09-28 03:04 → CSU 09-28 23:07 → MEDSURG 10-05 08:38
PROVIDERS: Internal Medicine; Internal Medicine Nephrology; Orthopaedic Surgery; Admitting Provider Internal Medicine; Emergency Provider Emergency Medicine; PCP Physician Assistant Medical; Visit Provider Student in an Organized Health Care Education/Training Program
PROC: 0RBJ4ZZ Excision of Right Shoulder Joint, Percutaneous Endoscopic Approach (ICD-10-PCS; principal; 2020-10-04 11:45)
DX: T82.868A Thrombosis due to vascular prosthetic devices, implants and grafts, initial encounter (principal); N18.6 End stage renal disease; A41.9 Sepsis, unspecified organism; I82.621 Acute embolism and thrombosis of deep veins of right upper extremity; E87.1 Hypo-osmolality and hyponatremia; I12.0 Hypertensive chronic kidney disease with stage 5 chronic kidney disease or end stage renal disease; E11.52 Type 2 diabetes mellitus with diabetic peripheral angiopathy with gangrene; I96 Gangrene, not elsewhere classified; M86.8X7 Other osteomyelitis, ankle and foot; M00.9 Pyogenic arthritis, unspecified; T82.898A Other specified complication of vascular prosthetic devices, implants and grafts, initial encounter; Y80.1 Therapeutic (nonsurgical) and rehabilitative physical medicine devices associated with adverse incidents; I48.91 Unspecified atrial fibrillation; D63.1 Anemia in chronic kidney disease; E11.22 Type 2 diabetes mellitus with diabetic chronic kidney disease; Z99.2 Dependence on renal dialysis; M10.9 Gout, unspecified; E03.9 Hypothyroidism, unspecified; E66.01 Morbid (severe) obesity due to excess calories; Z95.828 Presence of other vascular implants and grafts; E11.69 Type 2 diabetes mellitus with other specified complication; E11.42 Type 2 diabetes mellitus with diabetic polyneuropathy; B95.61 Methicillin susceptible Staphylococcus aureus infection as the cause of diseases classified elsewhere; B96.5 Pseudomonas (aeruginosa) (mallei) (pseudomallei) as the cause of diseases classified elsewhere; Z79.82 Long term (current) use of aspirin; Z79.84 Long term (current) use of oral hypoglycemic drugs; M25.411 Effusion, right shoulder; M75.101 Unspecified rotator cuff tear or rupture of right shoulder, not specified as traumatic
CPT/HCPCS: 12345; 36415; 36416; 36430; 36569; 36592; 71045; 71260; 73221; 73630; 74177; 75635; 76882; 80048; 80053; 80500; 82306; 82310; 82652; 82728; 82962; 83036; 83540; 83550; 83735; 83970; 84100; 84550; 85025; 85049; 85651; 85730; 86850; 86900; 86920; 87040; 87070; 87075; 87077; 87186; 87205; 89050; 90935; 93005; 93306; 93923; 93971; 96372; 97165; 99284; J0696; J1644; J1650; J1756; J1815 ×2; J1956; J2270; J2405; J2704; J2710; J3010; J3490; J7030; P9016; Q3014; Q4081; Q9967

== ENCOUNTER → 2020-10-14 15:05 | Outpatient (BNVA) | payer MEDICARE, OTHER, SELFPAY | PROVIDERS: PCP Physician Assistant Medical; Visit Provider Podiatrist Foot & Ankle Surgery | DX: L97.514 Non-pressure chronic ulcer of other part of right foot with necrosis of bone (principal); E11.42 Type 2 diabetes mellitus with diabetic polyneuropathy; L97.513 Non-pressure chronic ulcer of other part of right foot with necrosis of muscle | CPT/HCPCS: 73630 ==

== ENCOUNTER 2020-10-15 13:11 | Outpatient (CLI) | payer MEDICARE, OTHER, SELFPAY | END 2020-10-15 13:12 | disposition home or self-care (01) | LOC: WOUND 13:12 | PROVIDERS: PCP Physician Assistant Medical; Visit Provider Surgery | DX: E11.621 Type 2 diabetes mellitus with foot ulcer (principal); L97.513 Non-pressure chronic ulcer of other part of right foot with necrosis of muscle | CPT/HCPCS: 11043; G0463 ==

== ENCOUNTER 2020-10-22 11:28 | Outpatient (CLI) | payer MEDICARE, OTHER, SELFPAY ==
[2020-10-22 12:16] LABS: Basophils # 0.1 10^3/uL (0.0-0.1); Basophils % 0.4 %; Eosinophils # 0.8 10^3/uL (0.0-0.8); Eosinophils % 6.5 %; Hematocrit 26.1 % (42.0-52.0); Hemoglobin 8.2 g/dL (11.7-16.6); Lymphocytes % 8.2 %; Mean Corpuscular HGB Conc 31.4 g/dL (30.0-36.0); Mean Corpuscular Hemoglobin 28.5 pg (28.0-34.0); Mean Corpuscular Volume 90.6 fL (80-94); Mean Platelet Volume 9.2 fL (7.4-10.4); Monocytes # 1.1 10^3/uL (0.2-0.9); Monocytes % 9.5 %; Neutrophils # 8.77 10^3/uL (1.8-7.7); Neutrophils % 73.6 %; Nucleated Red Blood Cells % 0 %; Platelet Count 274 10^3/cmm (130-400); Red Blood Count 2.88 10^6/uL (4.1-5.3); Red Cell Distribution Width 16.3 % (12.1-15.1); White Blood Count 11.9 10^3/uL (4.0-10.0)
[2020-10-22 12:35] LABS: Alanine Aminotransferase 37 U/L (0-41); Albumin Level 2.5 g/dL (3.5-5.2); Alkaline Phosphatase 163 IU/L (40-130); Anion Gap 19.6 (5-19); Aspartate Amino Transferase 20 U/L (0-40); Blood Urea Nitrogen 76 mg/dL (8-23); Calcium 9.1 mg/dL (8.5-10.5); Carbon Dioxide 23 mmol/L (22-29); Chloride 92 mmol/L (98-107); Glomerular Filtration Rate 8.5 mL/min (90-130); Glucose 248 mg/dL (65-115); Osmolality Calculated 303 mOsm/kg (285-295); Potassium 3.6 mmol/L (3.5-5.1); Sodium 131 mmol/L (136-145); Total Bilirubin 0.2 mg/dL (0.15-1.2); Total Protein 6.5 g/dL (6.6-8.7)
[2020-10-22 13:19] LABS: Estmated Average Glucose 146; Hemoglobin A1C 6.7 % (4.0-6.0)
[2020-10-22 22:04] LABS: Prealbumin 24.8 mg/dL (20-40)
== END 2020-10-22 11:29 | disposition home or self-care (01) ==
PROVIDERS: PCP Physician Assistant Medical; Visit Provider Podiatrist Foot & Ankle Surgery
DX: M86.9 Osteomyelitis, unspecified (principal); E11.42 Type 2 diabetes mellitus with diabetic polyneuropathy
CPT/HCPCS: 36415; 80053; 83036; 84134; 85025

== ENCOUNTER 2020-10-22 14:01 | Outpatient (CLI) | payer MEDICARE, OTHER, SELFPAY | END 2020-10-22 14:02 | disposition home or self-care (01) | LOC: WOUND 14:02 | PROVIDERS: PCP Physician Assistant Medical; Visit Provider Surgery | DX: E11.621 Type 2 diabetes mellitus with foot ulcer (principal); L97.513 Non-pressure chronic ulcer of other part of right foot with necrosis of muscle; M86.9 Osteomyelitis, unspecified; E11.42 Type 2 diabetes mellitus with diabetic polyneuropathy | CPT/HCPCS: 11043; 36415; 80053; 83036; 84134; 85025 ==

== ENCOUNTER 2020-10-29 14:50 | Outpatient (CLI) | payer MEDICARE, OTHER, SELFPAY | END 2020-10-29 14:51 | disposition home or self-care (01) | LOC: WOUND 14:52 | PROVIDERS: PCP Physician Assistant Medical; Visit Provider Surgery | DX: E11.621 Type 2 diabetes mellitus with foot ulcer (principal); L97.513 Non-pressure chronic ulcer of other part of right foot with necrosis of muscle | CPT/HCPCS: 11043 ==

== ENCOUNTER 2020-11-05 13:54 | Outpatient (CLI) | payer MEDICARE, OTHER, SELFPAY | END 2020-11-05 13:55 | disposition home or self-care (01) | LOC: WOUND 13:55 | PROVIDERS: PCP Physician Assistant Medical; Visit Provider Surgery | DX: E11.621 Type 2 diabetes mellitus with foot ulcer (principal); L97.512 Non-pressure chronic ulcer of other part of right foot with fat layer exposed | CPT/HCPCS: 11042 ==

== ENCOUNTER 2020-11-12 15:13 | Outpatient (CLI) | payer MEDICARE, OTHER, SELFPAY | END 2020-11-12 15:14 | disposition home or self-care (01) | LOC: WOUND 15:14 | PROVIDERS: PCP Physician Assistant Medical; Visit Provider Surgery | DX: E11.621 Type 2 diabetes mellitus with foot ulcer (principal); L97.513 Non-pressure chronic ulcer of other part of right foot with necrosis of muscle | CPT/HCPCS: 11043 ==

== ENCOUNTER 2020-11-19 08:24 | Outpatient (CLI) | payer MEDICARE, OTHER, SELFPAY | END 2020-11-19 08:25 | disposition home or self-care (01) | LOC: WOUND 08:26 | PROVIDERS: PCP Physician Assistant Medical; Visit Provider Nurse Practitioner Family | DX: E11.621 Type 2 diabetes mellitus with foot ulcer (principal); L97.512 Non-pressure chronic ulcer of other part of right foot with fat layer exposed | CPT/HCPCS: 11042 ==

== ENCOUNTER 2020-11-25 12:44 | Inpatient (IN) | payer MEDICARE, OTHER, SELFPAY ==
--- NOTE | 2020-11-25 13:22 | PC.NURSE ---
Direct admit Pt is alert, oriented. denies any pain or discomfort. Pt has a AV fistula on left FA. Thrill palpated and bruit heard upon auscultation. Pt has intact and no redness or swelling on left lower abdomen PD site. IV started on right forearm #20 G. Non- pitting edema on bilateral lower extremities. Right foot chronic ulcer. Dressing to the site is clean, dry and intact. Call light within reach.
[2020-11-25 13:30] VITALS: BP 101/69; PULSE 90; RESP 17; TEMP 37.1; O2SAT 97
--- NOTE | 2020-11-25 13:30 | PC.NURSE ---
Pt brought his own PD supplies Pt stated he has his PD supplies in room as well as his cpap machine. Pt stated that he do PD one in the evening. Dr. Urias is notified and okay for pt to do his own PD.
[2020-11-25 13:53] VITALS: BMI 42.0
[2020-11-25] MEDS: sodium chloride 0.9% 1,000 ML 100 ML IV (14:47)
[2020-11-25 16:43] LABS: Glucose Point of Care 148 mg/dL (70-110)
[2020-11-25 17:19] VITALS: BP 119/72
[2020-11-25] MEDS: iron polysaccharide complex 150 mg Capsule PO (17:19)
[2020-11-25] MEDS: cloNIDine 0.1 mg Tablet PO (17:19)
--- NOTE | 2020-11-25 17:28 | P.CONIM_ITS ---
Providers/Reason For Consult Consulting Physican/Specialty*: Nephro Reason for Consult*: Mgmt of PD Attending Physician: Salvador Jaime MD Primary Care Provider: Anmol Santiago History of Present Illness History of Present Illness Mr. Bonilla is admitted for elective for lower extremity angiogram. 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 Wound appears to be healing well currently, significantly reduced in size compared to previously and he remains on Augmentin. No extremity edema, shortness of breath or other hypervolemic symptoms. No uremic Sx. Known to have ESRD, on PD. No recent issues with Pd, it's going well. He is unsure about his CCPD prescription but believes it to be 3 exchanges over 7 hours, 2 L of 2.5% solution and a last fill. Review of Systems Narrative: ROS - 12 point review of systems completed per HPI and subjective assessment, this includes Constitutional: No weakness, fatigue Respiratory: No SOB on exertion, comfortable at rest CardioVasc: No chest pain, palpitations Gastrointestinal: No nausea, no vomiting Neurological: No seizures, no AMS Derm: No new rashes, lesions or wounds Immunological: No seasonal and no food allergies Meds/Allergies Home Medications and Allergies Home Medications Medication Instructions Recorded Confirmed Last Taken Type allopurinol 300 mg PO QAM 08/11/20 11/25/20 11/25/20 History atorvastatin 20 mg PO QAM 08/11/20 11/25/20 11/25/20 History citalopram 20 mg PO BEDTIME 08/11/20 11/25/20 11/24/20 History clonidine HCl 0.1 mg PO BID 08/11/20 11/25/20 11/25/20 History cyclobenzaprine 5 mg PO Q8H PRN 08/11/20 11/25/20 09/26/20 History ergocalciferol (vitamin D2) 1,250 mcg PO Q7D 08/11/20 11/25/20 11/25/20 History levothyroxine 150 mcg PO QAM 08/11/20 11/25/20 11/25/20 History losartan 100 mg PO DAILY 08/11/20 11/25/20 11/25/20 History pantoprazole 40 mg PO QAM 08/11/20 11/25/2021 History paricalcitol [Zemplar] 1 mcg PO QAM 08/11/20 11/25/20 11/25/20 History peritoneal dialysis solution See Rx Instructions .ROUTE .COMPLEX 08/11/20 11/23/20 08/10/20 History torsemide 100 mg PO QAM 08/11/20 11/25/20 11/25/20 History glipizide 7.5 mg PO DAILY 30 Days #45 tab 08/18/20 11/25/20 11/25/20 Rx Post Operative darco shoe #1 ea 09/20/20 11/23/20 Unknown Rx polysaccharide iron complex 150 mg PO BID 09/27/20 11/25/20 11/25/20 History [Ferrex 150] hydrocodone-acetaminophen 1 tab PO Q8H PRN #15 tab 10/07/20 11/25/20 11/25/20 Rx amlodipine 10 mg tablet 10 mg PO BEDTIME tab 10/14/20 11/25/20 11/15/20 History apixaban 5 mg (74 tabs) tablets in 5 mg PO .COMPLEX 90 Days #180 ea 11/11/20 11/25/20 11/15/20 Rx a dose pack amoxicillin 500 mg-potassium 1 tab PO BID 30 Days #60 tab 11/23/20 11/25/20 11/25/20 Rx clavulanate 125 mg tablet levofloxacin 750 mg tablet 750 mg PO Q48H 42 Days #21 tab 11/23/20 11/25/20 11/24/20 Rx darbepoetin pieter in polysorbat 1 SUBCUT 11/25/20 Unknown History [Aranesp (in polysorbate)] ferric citrate [Auryxia] 210 mg PO TID 11/25/20 11/25/20 11/25/20 History metoprolol tartrate 75 mg PO BID 11/25/20 11/25/20 11/25/20 History Allergies Allergy/AdvReac Type Severity Reaction Status Date / Time No Known Allergies Allergy Verified 11/23/20 13:44 Current Medications Current Medications Generic Name Dose Route Start Last Admin Trade Name Freq PRN Reason Stop Dose Admin Clonidine HCl 0.1 mg 11/25/20 18:00 11/25/20 17:19 Clonidine 0.1 Mg Tablet PO 0.1 mg BID MARIANELA Administration Metoprolol Tartrate 100 mg 11/25/20 18:00 11/25/20 17:19 Metoprolol Tartrate 50 Mg Tablet PO 100 mg BID MARIANELA Administration Polysaccharide Iron Complex 150 mg 11/25/20 18:00 11/25/20 17:19 Iron Polysaccharide Complex 150 Mg Capsule PO 150 mg BID MARIANELA Administration PFSH Acute PFSH: Medical History Anemia Atrial fibrillation with RVR Atrial fibrillation, chronic Diabetes Diabetic neuropathy Elevated troponin End stage renal disease -on peritoneal dialysis Gout Hx of blood clots Hypertension Hypothyroidism Morbid obesity Surgical History Postoperative state Presence of Watchman left atrial appendage closure device S/P PICC central line placement aug 16 2020 Family History Other Family history non-contributory Social History Alcohol intake: never Housing: House Vitals/I&O/Wt Last Vital Signs BP 119/72 11/25/20 17:19 Weight last 48 hrs Weight 140.614 kg Physical Exam Narrative: EXAM NARRATIVE: Constitutional: Awake, comfortable HEENT: Wet mucosa, no jvp, non icteric Lungs: Bilaterally clear without discernible wheeze, rales in all lung zones CVS: S1 S2, no murmurs Abdo: Soft, BS ok Ext 4: Minimal edema, peripheral perfusion with no cyanosis Neurological: Grossly non-focal A&P Additional A&P Information 1. ESRD on PD While in the hospital I will allow hism to perform his own PD, using his cycler, CCPD prescription of 3 exchanges over 7 hours, 2 L of 2.5% solution and a last fill. 2. Electrolytes Electrolytes look pretty reasonable. Will check a.m. levels. 3. LE arterial insufficiency Angio tomorrow per Dr Jaime 4. Chronic issues associated with end-stage renal disease These will be addressed in the outpatient clinic including titration of phosphorus medication, anemia management, secondary hyperparathyroidism etc. Pavel Urias MD Nephrology [phone] Patient seen and examined via telemedicine, with the assistance of the bedside RN > 25 min spent in evaluation and mgmt of patient Consult Attestations Medical Necessity Statement: Eval for ESRD mgmt Coding Level of Care Code Acute Inserter Operator for [employer] More
[2020-11-25 17:45] LABS: Basophils % 0.3 %; Eosinophils # 0.5 10^3/uL (0.0-0.8); Eosinophils % 4.4 %; Hematocrit 27.7 % (42.0-52.0); Hemoglobin 8.4 g/dL (11.7-16.6); Lymphocytes # 1.2 10^3/uL (0.8-4.8); Mean Corpuscular HGB Conc 30.3 g/dL (30.0-36.0); Mean Corpuscular Hemoglobin 28.6 pg (28.0-34.0); Mean Corpuscular Volume 94.2 fL (80-94); Mean Platelet Volume 9.5 fL (7.4-10.4); Monocytes # 1.5 10^3/uL (0.2-0.9); Monocytes % 13.6 %; Neutrophils # 7.82 10^3/uL (1.8-7.7); Neutrophils % 69.5 %; Nucleated Red Blood Cells % 0 %; Platelet Count 216 10^3/cmm (130-400); Red Blood Count 2.94 10^6/uL (4.1-5.3); Red Cell Distribution Width 17.3 % (12.1-15.1); White Blood Count 11.2 10^3/uL (4.0-10.0)
[2020-11-25 18:05] LABS: Anion Gap 18.6 (5-19); Blood Urea Nitrogen 60 mg/dL (8-23); Calcium 9.2 mg/dL (8.5-10.5); Carbon Dioxide 24 mmol/L (22-29); Chloride 98 mmol/L (98-107); Glomerular Filtration Rate 9.6 mL/min (90-130); Glucose 107 mg/dL (65-115); Osmolality Calculated 301 mOsm/kg (285-295); Potassium 3.6 mmol/L (3.5-5.1); Sodium 137 mmol/L (136-145)
[2020-11-25 18:30] VITALS: BP 119/72; PULSE 84; RESP 20; TEMP 37.2
--- NOTE | 2020-11-25 18:30 | PC.NURSE ---
Med Rec Notified Dr. Jaime in person regarding updating and reviewing pt's home meds.
[2020-11-25 18:41] LABS: SARS Covid-2 Antigen Negative (Negative)
[2020-11-25 18:48] LABS: Erythrocyte Sedimentation Rate 119 mm/hr (0-10)
[2020-11-25 19:50] VITALS: BP 137/81; PULSE 85; RESP 22; TEMP 37.4
[2020-11-25 20:23] LABS: Glucose Point of Care 148 mg/dL (70-110)
--- NOTE | 2020-11-25 20:49 | PM.HP ---
Providers/Chief Complaint Admitting Physician: Salvador Jaime MD Primary Care Provider: Anmol Santiago Chief Complaint: prehydration for procedure History of Present Illness Levi Bonilla is a 65 year old male past medical history significant for hypertension hyperlipidemia diabetes mellitus type 2 chronic end-stage kidney disease on peritoneal dialysis osteomyelitis gangrene of right toe/proximal phalanx and right hallux MRSA requiring IV and oral antibiotics debridement. Patient would not like to have amputation of the toe which he was offered for persistent infection gangrene and osteomyelitis. ABIs could not be done due to noncompressible arteries due to calcification. Abdominal aorta with runoff was noted which is consistent with highly calcified but patent iliacs SFA and popliteal arteries however below the knee there appeared to be highly calcified severe diseased vessel, foot and arch vascular system could not be seen. It appeared to me that patient has diabetic and limb ischemia derived infection. Patient continue to follow-up with Dr. Woodall/wound clinic. His wound has slowly improved but still not healing completely. He would not like to go with amputation of the toe and would like to consider it if there anything we can do to help him. I have offered him peripheral angiogram to see whether we can help him in revascularizing the tissues. It is the reason he is here for. This is a complicated patient with pretty advanced disease. He has highly calcified blood vessels. Those blood vessels are high risk for acute abrupt closure during procedure or angiogram or during process of angioplasty or atherectomy. I have detailed discussion with the patient and had given him option to go for second opinion with vascular surgery but he would not like to consider that and would like me to go ahead with peripheral angiogram. I explained the patient by myself in detail that procedure itself carry risk for bleeding in the face of chronic anemia due to use of anticoagulation and antiplatelet, there is also risk of distal embolization in these highly calcified diseased arteries leading to further worsening of symptoms with acute limb ischemia and in worse case scenario amputation of the foot or below the knee leg. He understand the need and risk for urgent emergent vascular surgery and understand that we do not have vascular surgery here and has to transfer him. By understanding all the risk benefit and alternative for the procedure he would like to proceed with it. I have also discussed him in detail regarding FDA warning for drug-coated balloon with high mortality in those cohorts. He understand the risk of it and would like to proceed with it if needed. I have requested nephrology colleagues to advise us regarding his peritoneal dialysis and adjustment of medicines. We will admit the patient to [facility] and proceed with peripheral angiogram through left common femoral approach tomorrow morning. Review of Systems Narrative: ROS - 12 point review of systems completed per HPI and subjective assessment, this includes Constitutional: No weakness, fatigue Respiratory: No SOB on exertion, comfortable at rest CardioVasc: No chest pain, palpitations Gastrointestinal: No nausea, no vomiting Neurological: No seizures, no AMS Derm: No new rashes, lesions or wounds Immunological: No seasonal and no food allergies Medications/Allergies Home Medications Medication Instructions Recorded Confirmed Last Taken Type allopurinol 300 mg PO QAM 08/11/20 11/26/20 11/25/20 History atorvastatin 20 mg PO QAM 08/11/20 11/26/20 11/25/20 History citalopram 20 mg PO BEDTIME 08/11/20 11/26/20 11/24/20 History clonidine HCl 0.1 mg PO BID 08/11/20 11/26/20 11/25/20 History cyclobenzaprine 5 mg PO Q8H PRN 08/11/20 11/26/20 09/26/20 History ergocalciferol (vitamin D2) 1,250 mcg PO Q7D 08/11/20 11/26/20 11/25/20 History levothyroxine 150 mcg PO QAM 08/11/20 11/26/20 11/25/20 History losartan 100 mg PO DAILY 08/11/20 11/26/20 11/25/20 History pantoprazole 40 mg PO DAILY 08/11/20 11/26/20 11/25/20 History paricalcitol [Zemplar] 1 mcg PO QAM 08/11/20 11/26/20 11/25/20 History torsemide 100 mg PO QAM 08/11/20 11/26/20 11/25/20 History polysaccharide iron complex 150 mg PO BID 09/27/20 11/26/20 11/25/20 History [Ferrex 150] hydrocodone-acetaminophen 1 tab PO Q8H PRN #15 tab 10/07/20 11/26/20 11/25/20 Rx amlodipine 10 mg tablet 10 mg PO BEDTIME tab 10/14/20 11/26/20 11/15/20 History apixaban 5 mg (74 tabs) tablets in 5 mg PO .COMPLEX 90 Days #180 ea 11/11/20 11/26/20 11/15/20 Rx a dose pack amoxicillin 500 mg-potassium 1 tab PO BID 30 Days #60 tab 11/23/20 11/26/20 11/25/20 Rx clavulanate 125 mg tablet levofloxacin 750 mg tablet 750 mg PO Q48H 42 Days #21 tab 11/23/20 11/26/20 11/24/20 Rx ferric citrate [Auryxia] 210 mg PO TID 11/25/20 11/26/20 11/25/20 History glipizide 5 mg PO DAILY 11/26/20 11/26/20 Unknown History metoprolol tartrate 100 mg PO Q12H 11/26/20 11/26/20 Unknown History Allergies Allergy/AdvReac Type Severity Reaction Status Date / Time No Known Allergies Allergy Verified 11/23/20 13:44 PFSH Acute PFSH: Medical History Anemia Atrial fibrillation with RVR Atrial fibrillation, chronic Diabetes Diabetic neuropathy Elevated troponin End stage renal disease -on peritoneal dialysis Gout Hx of blood clots Hypertension Hypothyroidism Morbid obesity Surgical History Postoperative state Presence of Watchman left atrial appendage closure device S/P PICC central line placement aug 16 2020 Family History Other Family history non-contributory Social History Alcohol intake: never Housing: House Vitals/I&O/Wt Last Vital Signs Temp 99.3 F 11/25/20 19:50 Pulse 85 11/25/20 19:50 Resp 22 H 11/25/20 19:50 BP 137/81 11/25/20 19:50 Pulse Ox 97 11/25/20 13:30 11/25/20 11/25/20 11/25/20 06:59 14:59 22:59 Intake Total 731.667 / 731.667 Output Total 500 / 500 Balance 231.667 / 231.667 Weight last 48 hrs Weight 310 lb Physical Exam Narrative: EXAM NARRATIVE: GENERAL: Patient is alert, awake and oriented x3. NECK: No jugular vein distension. HEENT: No cyanosis. No icterus. No pallor. HEART: Regular S1 and S2. No murmur, rub or gallop. LUNGS: Clear to auscultate bilaterally. ABDOMEN: Soft, nontender and nondistended. Positive bowel sounds. No guarding, rebound or tenderness. CENTRAL NERVOUS SYSTEM: Grossly nonfocal. EXTREMITIES: Lower extremities with 1+ edema bilaterally. Pulses not palpable, right foot dorsal nonhealing ulcer Data : 11/26/20 04:18 11/26/20 04:18 A&P Assessment and plan (1) Critical limb ischemia with history of revascularization of same extremity: As above we will proceed with peripheral angiogram tomorrow morning for the plan will advise as per progress of the patient. Status: Acute (2) DVT (deep venous thrombosis): Anticoagulation on hold for peripheral angiogram will cover with Lovenox Status: Acute Qualifiers: Chronicity: acute DVT location: non-extremity vein Qualified Code(s): I82.90 - Acute embolism and thrombosis of unspecified vein (3) Atrial fibrillation: Rate controlled continue current regimen Status: Acute Qualifiers: Atrial fibrillation type: unspecified Qualified Code(s): I48.91 - Unspecified atrial fibrillation (4) ESRD (end stage renal disease): Continue as per nephrology Status: Acute Attestations Medical Necessity Statement*: I am expecting patient stay to cross more than 2 midnights. Coding Level of Care Code New Pt Acute Backend Tester for [facility] Fwd Patient Type New Medical Decision Making High Complexity Diagnoses Critical limb ischemia with history of revascularization of same extremity I99.8; Z95.9 DVT (deep venous thrombosis) I82.90 Chronicity: acute DVT location: non-extremity vein Atrial fibrillation I48.91 Atrial fibrillation type: unspecified ESRD (end stage renal disease) N18.6
[2020-11-25 21:48] VITALS: BP 137/81
[2020-11-25] MEDS: amlodipine 5 mg Tablet PO (21:48)
[2020-11-25] MEDS: citalopram 20 mg Tablet PO (21:48)
[2020-11-25] MEDS: losartan 50 mg Tablet 100 MG PO (21:48)
[2020-11-25] MEDS: metoprolol tartrate 50 mg Tablet 75 MG PO (21:49)
--- NOTE | 2020-11-25 22:13 | PC.NURSE ---
Patient has wound to great toe on right foot. Patient states they wanted to cut off my toe, but I wouldn't let them. Patient will not allow me to take dressing off at this time to fully assess wound. Patient states, it is to be changed once a day in the morning.
[2020-11-26] VITALS (21 sets, daily range): BP systolic 99–159; BP diastolic 76–96; PULSE 84–109; RESP 16–27; TEMP 36.5–37.3; O2SAT 93–98
--- NOTE | 2020-11-26 02:44 | PC.NURSE ---
At around 2044, patient set up his own home PD machine and set up his own home CPAP.
[2020-11-26 04:52] LABS: Basophils % 0.4 %; Eosinophils # 0.5 10^3/uL (0.0-0.8); Eosinophils % 4.9 %; Hematocrit 25.5 % (42.0-52.0); Hemoglobin 7.8 g/dL (11.7-16.6); Lymphocytes # 0.9 10^3/uL (0.8-4.8); Lymphocytes % 9.6 %; Mean Corpuscular HGB Conc 30.6 g/dL (30.0-36.0); Mean Corpuscular Hemoglobin 28.3 pg (28.0-34.0); Mean Corpuscular Volume 92.4 fL (80-94); Mean Platelet Volume 9.7 fL (7.4-10.4); Monocytes # 1.1 10^3/uL (0.2-0.9); Monocytes % 11.2 %; Neutrophils # 7.16 10^3/uL (1.8-7.7); Neutrophils % 72.8 %; Nucleated Red Blood Cells % 0 %; Platelet Count 193 10^3/cmm (130-400); Red Blood Count 2.76 10^6/uL (4.1-5.3); Red Cell Distribution Width 17.4 % (12.1-15.1); White Blood Count 9.8 10^3/uL (4.0-10.0)
[2020-11-26 05:13] LABS: Anion Gap 19.2 (5-19); Blood Urea Nitrogen 55 mg/dL (8-23); Calcium 9.1 mg/dL (8.5-10.5); Carbon Dioxide 24 mmol/L (22-29); Chloride 96 mmol/L (98-107); Glomerular Filtration Rate 10.2 mL/min (90-130); Glucose 192 mg/dL (65-115); Osmolality Calculated 302 mOsm/kg (285-295); Potassium 3.2 mmol/L (3.5-5.1); Sodium 136 mmol/L (136-145)
[2020-11-26] MEDS: atorvastatin 40 mg Tablet 20 MG PO (05:14)
[2020-11-26] MEDS: TORSEmide 20 mg Tablet 100 MG PO (05:15)
[2020-11-26] MEDS: diphenhydrAMINE 50 mg Capsule PO (05:16)
[2020-11-26] MEDS: levothyroxine 150 mcg Tablet PO (05:16)
[2020-11-26] MEDS: allopurinol 300 mg Tablet PO (05:16)
[2020-11-26] MEDS: sodium chloride 0.9% 1,000 ML 50 ML IV (05:17)
[2020-11-26] MEDS: pantoprazole DR 40 mg Tablet PO (05:24)
--- NOTE | 2020-11-26 06:33 | PC.NURSE ---
Dressing removed from right foot in order to properly nathan pedal pulse for procedure this AM. Optifoam applied to side of right great toe for temporary protection. Patient states he sees wound care for the wound.
[2020-11-26 06:41] LABS: Glucose Point of Care 146 mg/dL (70-110)
[2020-11-26] MEDS: iron polysaccharide complex 150 mg Capsule PO ×2 (09:13→17:12)
[2020-11-26] MEDS: cloNIDine 0.1 mg Tablet PO ×2 (09:14→17:12)
[2020-11-26] MEDS: metoprolol tartrate 50 mg Tablet 75 MG PO ×2 (09:14→20:33)
[2020-11-26] MEDS: potassium chloride ER 20 mEq Tablet 40 MEQ PO (10:46)
[2020-11-26 11:29] LABS: Glucose Point of Care 224 mg/dL (70-110)
--- NOTE | 2020-11-26 15:44 | P.PN_ITS ---
Subjective Subjective: Interval history: Mr. Bonilla feels well today, has no acute issues. Of note his lower extremity angiogram is deferred given anemia, he is currently receiving 2 units of packed red blood cells. His PD went well last night with painless exchanges, clear effluent and perfect technique. Vitals/I&O/Wt Last Vital Signs Temp 98.5 F 11/26/20 13:22 Pulse 97 11/26/20 13:22 Resp 18 11/26/20 13:22 BP 119/80 11/26/20 13:22 Pulse Ox 98 11/26/20 12:49 11/26/20 11/26/20 11/26/20 06:59 14:59 22:59 Intake Total 300 / 1031.667 240 / 240 Output Total 550 / 1275 200 / 200 Balance -250 / -243.333 40 / 40 Weight last 48 hrs Weight 140.614 kg Physical Exam Narrative: EXAM NARRATIVE: Constitutional: Awake, comfortable HEENT: Wet mucosa, no jvp, non icteric Lungs: Bilaterally clear without discernible wheeze, rales in all lung zones CVS: S1 S2, no murmurs Abdo: Soft, BS ok, exit site looks good Ext 4: Minimal edema, peripheral perfusion with no cyanosis Neurological: Grossly non-focal Data : 11/26/20 04:18 11/26/20 04:18 A&P Additional A&P Information 1. ESRD on PD While in the hospital I will allow m to perform his own PD, using his cycler, CCPD prescription of 3 exchanges over 7 hours, 2 L of 2.5% solution and a last fill. 2. Electrolytes Electrolytes look pretty reasonable. K being replaced and K will be in the blood tranfusion also 3. LE arterial insufficiency Angio tomorrow per Dr Jaime 4. Chronic issues associated with end-stage renal disease These will be addressed in the outpatient clinic including titration of ph osphorus medication, anemia management, secondary hyperparathyroidism etc. 5. PRBCs for anemia today am H/H Pavel Urias MD Nephrology [phone] Patient seen and examined via telemedicine, with the assistance of the bedside RN > 25 min spent in evaluation and mgmt of patient Attestations Medical Necessity Statement*: mgmt of PD Coding Level of Care Code Acute Automotive Service Technician for [facility] Fwjuan carlos
--- NOTE | 2020-11-26 16:37 | PC.NURSE ---
first unit prbc's began at 1252.started initially at 50cc/hr x 15 min..then increased to 125 cc/hr for remainder of transfusion.transfusion eneded at 1600.no s/sxs transfusion reaction noted.2nd unit prbc's started at 1620 at 50 cc/hr for 15 min.no s/sxs transfusion reaction noted.rate increased to 125cc/hr.
[2020-11-26 16:51] LABS: Glucose Point of Care 193 mg/dL (70-110)
[2020-11-26] MEDS: sodium chloride 0.9% (100 ml) 100 ML (17:13)
[2020-11-26] MEDS: silvasorb gel 44.4 mL 1 APPLIC TOPICAL (17:15)
--- NOTE | 2020-11-26 19:40 | PC.NURSE ---
Bedside report received from ABE Hernandez. Patient resting in bed watching tv. Patient has last unit of blood going. IV site remains patient without s/s of infiltration observed. ABE Hylton at bedside to initiate Peritoneal dialysis. Discussed [facility] tentatively schedule for 11/27/20. Patient expressed complete understanding stating, we can have a pizza alliance party as long as we are done before midnight. Patient very pleased and cooperative.
--- NOTE | 2020-11-26 20:27 | PM.PN ---
Subjective Subjective: Interval history: This morning patient hemoglobin stayed around below eight 7.8. It is the reason we have deferred the peripheral angiogram today. Vitals/I&O/Wt Last Vital Signs Temp 98.3 F 11/26/20 19:12 Pulse 101 H 11/26/20 19:12 Resp 27 H 11/26/20 19:12 BP 129/89 11/26/20 19:12 Pulse Ox 94 11/26/20 19:12 11/26/20 11/26/20 11/26/20 06:59 14:59 22:59 Intake Total 300 / 1031.667 240 / 240 350 / 590 Output Total 550 / 1275 200 / 200 Balance -250 / -243.333 40 / 40 350 / 390 Weight last 48 hrs Weight 310 lb Physical Exam Narrative: EXAM NARRATIVE: GENERAL: Patient is alert, awake and oriented x3. NECK: No jugular vein distension. HEENT: No cyanosis. No icterus. No pallor. HEART: Regular S1 and S2. No murmur, rub or gallop. LUNGS: Clear to auscultate bilaterally. ABDOMEN: Soft, nontender and nondistended. Positive bowel sounds. No guarding, rebound or tenderness. CENTRAL NERVOUS SYSTEM: Grossly nonfocal. EXTREMITIES: Lower extremities without edema bilaterally. Pulses not palpable, right foot dorsal nonhealing ulcer Data : 11/26/20 04:18 11/26/20 04:18 A&P Assessment and plan (1) Critical limb ischemia with history of revascularization of same extremity: Will be scheduled in case for peripheral angiogram tomorrow I will transfuse patient with 2 units to increase hemoglobin level as during the procedure we may have to give blood thinner and in case of bleeding or any complication I would like the patient is a to be at its best. I have detailed discussion to the patient he understand and would like to proceed with transfusion. Status: Acute (2) DVT (deep venous thrombosis): Reason ultrasound did not show DVT. Continue to monitor Status: Acute Qualifiers: Chronicity: acute DVT location: non-extremity vein Qualified Code(s): I82.90 - Acute embolism and thrombosis of unspecified vein (3) Atrial fibrillation: Rate controlled continue current regimen Status: Acute Qualifiers: Atrial fibrillation type: unspecified Qualified Code(s): I48.91 - Unspecified atrial fibrillation (4) ESRD (end stage renal disease): Continue as per nephrology Status: Acute (5) Anemia: Patient has chronic anemia however hemoglobin level is 7.8 lowest and during few weeks. Patient denies any bleeding per rectum most likely this is due to anemia of chronic kidney disease. I will transfuse him to increase it is already before the peripheral angiogram as we will be giving him blood thinner Status: Acute Attestations Medical Necessity Statement*: Require continuation hospitalization for above defined care Coding Level of Care Code Established Pt Acute Metropolitan Editor for g Fwd Patient Type Established History Expanded Problem Focused Exam Expanded Problem Focused Medical Decision Making Moderate Complexity Diagnoses Critical limb ischemia with history of revascularization of same extremity I99.8; Z95.9 DVT (deep venous thrombosis) I82.90 Chronicity: acute DVT location: non-extremity vein Atrial fibrillation I48.91 Atrial fibrillation type: unspecified ESRD (end stage renal disease) N18.6 Anemia D64.9
[2020-11-26] MEDS: amlodipine 5 mg Tablet PO (20:33)
[2020-11-26] MEDS: losartan 50 mg Tablet 100 MG PO (20:33)
[2020-11-26] MEDS: citalopram 20 mg Tablet PO (20:33)
[2020-11-26 20:46] LABS: Glucose Point of Care 143 mg/dL (70-110)
[2020-11-27] VITALS (55 sets, daily range): BP systolic 115–162; BP diastolic 74–105; PULSE 73–123; RESP 14–32; TEMP 36.7–37.7; O2SAT 90–96
[2020-11-27] MEDS: atorvastatin 40 mg Tablet 20 MG PO (05:52)
[2020-11-27] MEDS: levothyroxine 150 mcg Tablet PO (05:52)
[2020-11-27] MEDS: allopurinol 300 mg Tablet PO (05:52)
[2020-11-27] MEDS: TORSEmide 20 mg Tablet 100 MG PO (05:52)
[2020-11-27] MEDS: pantoprazole DR 40 mg Tablet PO (05:53)
[2020-11-27 06:47] LABS: Glucose Point of Care 137 mg/dL (70-110)
[2020-11-27 08:03] LABS: Basophils # 0.1 10^3/uL (0.0-0.1); Basophils % 0.5 %; Eosinophils # 0.6 10^3/uL (0.0-0.8); Hematocrit 30.4 % (42.0-52.0); Hemoglobin 9.4 g/dL (11.7-16.6); Lymphocytes # 1.1 10^3/uL (0.8-4.8); Lymphocytes % 10.6 %; Mean Corpuscular HGB Conc 30.9 g/dL (30.0-36.0); Mean Corpuscular Hemoglobin 28.5 pg (28.0-34.0); Mean Corpuscular Volume 92.1 fL (80-94); Mean Platelet Volume 9.4 fL (7.4-10.4); Monocytes # 1.3 10^3/uL (0.2-0.9); Monocytes % 12.5 %; Neutrophils # 7.16 10^3/uL (1.8-7.7); Neutrophils % 69.2 %; Nucleated Red Blood Cells % 0 %; Platelet Count 182 10^3/cmm (130-400); Red Cell Distribution Width 17.1 % (12.1-15.1); White Blood Count 10.3 10^3/uL (4.0-10.0)
[2020-11-27 08:28] LABS: Anion Gap 18.8 (5-19); Blood Urea Nitrogen 52 mg/dL (8-23); Calcium 9.1 mg/dL (8.5-10.5); Carbon Dioxide 24 mmol/L (22-29); Chloride 95 mmol/L (98-107); Glomerular Filtration Rate 10.2 mL/min (90-130); Glucose 126 mg/dL (65-115); Osmolality Calculated 294 mOsm/kg (285-295); Potassium 3.8 mmol/L (3.5-5.1); Sodium 134 mmol/L (136-145)
--- NOTE | 2020-11-27 08:47 | XACV_ITS ---
Ht: 183 cm Wt: 141 kg BSA: 2.73 m2 Any Known Allergies: No known allergies Gender: Male : 1955 Exam Type: Invasive Peripheral Vascular Procedure(s): Procedure Description: Peripheral Cath Diagnostic Procedure Exam Priority: Routine Conclusions Indication for peripheral angiogram: Lifestyle limiting claudication, abnormal test Abdominal aortogram: Normal abdominal aorta, normal bilateral renal arteries, normal bilateral common, external, internal iliac arteries . Normal bilateral common femoral arteries. Normal bilateral profundofemoral arteries. Bilateral superficial femoral arteries. Bilateral popliteal arteries. Two-vessel runoff was noted on the right side could be secondary to insufficient injection or possible anterior tibial artery occlusion which cannot be ruled out. Below her left knee three-vessel runoff including anterior posterior tibial and peroneal artery runoff noted. . Recommendations Usual post-cath care. Rule out extravascular causes for lower extremity pain/pseudoclaudication. Hemodynamic Data Phase:Rest AO : 123.0 / 68.0 ( 89.0 ) @ 4:38:00 AM Access Site Site: Left Femoral artery Sheath Size: 6 Fr Hemost... Method: Suture Hemost... Success: Successful Procedure Details Findings Procedure Consent Obtained. Pre-Procedure Time Out. Identified patient by full name and date of as verbalized by the patient/guarantor. Does the consent match the physician's order: Yes. Accurate & Complete Informed Consent: Yes. Inpatient/Outpatient History & Physical on Chart: Yes. If H&P is completed, is and addenduem needed: No; If yes, is the addendum complete: N/A. Visualize and Verify Site with Patient/Guarantor: N/A. Relevant Radiology Images available: N/A. Pre-op teaching completed and patient verbalized understanding. The risks, benefits, and alternatives of sedation and/or procedure were discussed by physician. The patient agrees to continue. Procedure started. Correct patient, site and procedure confirmed by cath team. PERRLA. Strong, equal hand gym manager bilaterally. Lungs clear x 5 lobes. IV Site on Arrival: 20 gauge in the right forearm. IV Fluids: 0.9% NaCl at KVO. 0 mL infused prior to research laboratory technician. Pre Procedural Pulses: bilateral dorsalis pedis was 2+. Pre Procedural Pulses: bilateral posterior tibial was 2+. Pre Procedural Pulses: bilateral brachial was 3+. Oxygen started at 2liters/min via nasal canula. bilateral groins was prepped with chloroprep then draped in the usual sterile fashion. Physician notified. Baseline sample Acquired. HR: 93 BPM. Hemodynamic formulas in Rest were re-calculated based on hemoglobin value from 11/27/2020 7:43:00 AM. Equipment: Peripheral. Cardiac Cath Pack. ACIST Manifold Kit Model BT 2000. Heparinized Saline (2 units/mL), 1000 mL bag. Inventory is JJ 6F 11cm Megan Plus Sheath. Physician arrived. Physician scrubbed in. Time out performed with cath team. Lidocaine 1% infiltrated to the left groin. Arterial access obtained with micropuncture set. A 5Fr Marker Pig catheter in over wire. Abdominal aortogram performed in AP @ 10 mL/sec for a total of 30 mL. Catheter removed over the glide wire. A 5Fr RIM catheter in over wire. Right leg runoff 10 ml for total of 30 ml. Side port of sheath attached to Normal Saline flush at KVO to maintain patency. Right leg runoff 10 ml for total of 30 ml. Right leg runoff 10 ml for total of 30 ml. Glidewire inserted. Short 6 fr sheath exchanged for 45 cm 6 fr flexor sheath. Inventory is CK 6 FR FLEXOR SHEATH 45CM. SEEKER support catheter inserted over glidewire. SEEKER seated in distal SFA. Wire out. Hand injection performed. Inventory is TR Glidewire Angled Stiff Shaft .035 260cm. Inventory is TR Glidewire Angled Stiff Shaft .035 260cm. Glidewire inserted. SEEKER and wire advance to popliteal. Wire out. Hand injection performed. Hand injection performed. Glidewire inserted. SEEKER catheter out over glidewire. 45 cm 6 fr Flexor sheath exchanged for short 6 fr sheath. Left leg runoff through sheath 10 ml for total of 30 ml. Physician scrubbed out. A Suture was successful obtaining hemostatsis at the Left Femoral artery insertion site. Sheath(s) sutured into position with 2-0 silk and sterile 4x4's and Op-site applied over the site. No oozing or signs and symptoms of hematoma noted. Arterial sheath flushed and connected to tranducer and pressure bag with heparinized saline. Post Procedure: Pulses reassessed and unchanged. PERRLA. Strong, equal hand gym manager bilaterally. No VTE prophylaxis required. Medication's Wasted: Other = versed 1 mg. Total IV fluids: 75 mL. Contrast type used: Visipaque 320 mgI/mL, 500 mL bottle. Post-op diagnosis: Severe PVD, small vessel disease to foot. Complications: none. Estimated blood loss: 5mL-10mL. Procedure completed. Patient transferred by bed to 1st floor. Vital chart was stopped. Procedure Medications Start: 9:18 AM Stop: 9:18 AM Medication: Versed Amount: 1 mg Route: I.V. Start: 9:18 AM Stop: 9:18 AM Medication: Fentanyl Amount: 50 mcg Route: I.V. Start: 9:22 AM Stop: 9:22 AM Medication: Versed Amount: 1 mg Route: I.V. Start: 9:23 AM Stop: 9:23 AM Medication: Fentanyl Amount: 50 mcg Route: I.V. Start: 9:26 AM Stop: 9:26 AM Medication: Versed Amount: 1 mg Route: I.V. Start: 9:41 AM Stop: 9:41 AM Medication: Versed Amount: 1 mg Route: I.V. Start: 9:52 AM Stop: 9:52 AM Medication: Versed Amount: 1 mg Route: I.V. Start: 9:55 AM Stop: 9:55 AM Medication: Heparin Amount: 7000 units Route: I.V. Start: 10:02 AM Stop: 10:02 AM Medication: Versed Amount: 1 mg Route: I.V. History/Risk Factors Hypertension: Yes Dyslipidemia: Yes Peripheral Arterial Disease (PAD): Yes Obesity: Yes Renal Disease: Yes Tobacco Use: Never Dialysis: Current Prior Interventions PCI: No CABG: No Valve Surgery: No Report Signatures Finalized by Salvador Jaime MD on 12/08/2020 05:38 PM
--- NOTE | 2020-11-27 09:14 | PC.NURSE ---
Patient to heart lab intern at 0850.
--- NOTE | 2020-11-27 09:20 | W.PM.OPSUD ---
Surgery/Procedure H&P Update DATE OF PROCEDURE: November 27, 2020 DATE H&P PERFORMED: 11/25/20 H&P UPDATE INFORMATION: I have reviewed H&P completed within last 30 days, I have examined patient prior to procedure and No changes to prior documentation PREOP DIAGNOSIS: Severe peripheral vascular disease, critical limb ischemia, right foot toe PLANNED PROCEDURE: Operation Date: 11/27/20 07:00 Proposed Procedures p Peripheral Intervention(Not Applicable) - Salvador Jaime MD PATIENT REASSESSED PRIOR TO SEDATION, WITH NO CHANGE NOTED: Yes PHYSICAL EXAM: alert, oriented x 3 and clear to auscultation bilaterally AIRWAY EVAL/ANESTHESIA PLAN: ASA II, ASA III, Risks, benefits & alternatives of sedation and/or procedure discussed and Patient agrees to continue as planned
[2020-11-27 11:13] LABS: Glucose Point of Care 128 mg/dL (70-110)
--- NOTE | 2020-11-27 11:13 | P.PN_ITS ---
Subjective Subjective: Interval history: Mr. Bonilla feels well today, has no acute issues. Lower extremity angiogram done today. His PD went well last night with painless exchanges, clear effluent and perfect technique. Vitals/I&O/Wt Last Vital Signs Temp 98.2 F 11/27/20 10:18 Pulse 92 11/27/20 11:12 Resp 15 11/27/20 10:18 BP 115/80 11/27/20 10:18 Pulse Ox 93 11/27/20 11:12 11/26/20 11/27/20 11/27/20 22:59 06:59 14:59 Intake Total 717.583 / 1093.416 Output Total 125 / 325 350 / 675 Balance 592.583 / 768.416 -350 / 418.416 Weight last 48 hrs Weight 140.614 kg Physical Exam Narrative: EXAM NARRATIVE: Constitutional: Awake, comfortable HEENT: Wet mucosa, no jvp, non icteric Lungs: Bilaterally clear without discernible wheeze, rales in all lung zones CVS: S1 S2, no murmurs Abdo: Soft, BS ok, exit site looks good Ext 4: Minimal edema, peripheral perfusion with no cyanosis Neurological: Grossly non-focal Data : 11/27/20 07:43 11/27/20 07:43 A&P Additional A&P Information 1. ESRD on PD While in the hospital I will allow susana to perform his own PD, using his cycler, CCPD prescription of 3 exchanges over 7 hours, 2 L of 2.5% solution and a last fill. 2. Electrolytes Electrolytes look pretty reasonable 3. LE arterial insufficiency Angio done, results per Dr Jaime 4. Chronic issues associated with end-stage renal disease These will be addressed in the outpatient clinic including titration of phosphorus medication, anemia management, secondary hyperparathyroidism etc. 5. Hb stable after PRBCs Pavel Urias MD Nephrology [phone] Patient seen and examined via telemedicine, with the assistance of the bedside RN > 25 min spent in evaluation and mgmt of patient Attestations Medical Necessity Statement*: Eval for ESRd and PD mgmmt Coding Level of Care Code Acute Product Development Intern for Chg More
[2020-11-27 13:28] LABS: Partial Thromboplastin Time 29.9 SECONDS (23.9-36.7)
--- NOTE | 2020-11-27 16:01 | P.PN_ITS ---
Subjective Subjective: Interval history: Patient underwent peripheral angiogram which showed small vessel disease in the foot arch with patent right common iliac, superficial femoral, popliteal, anterior tibial and peroneal vessel. Right posterior tibial was chronically occluded but reconstituted in the distal. Arch of the foot was not visualized it appeared to be chronically occluded. Medications: Reviewed: Yes Vitals/I&O/Wt Last Vital Signs Temp 98.0 F 11/27/20 15:26 Pulse 98 11/27/20 15:26 Resp 18 11/27/20 15:26 BP 150/84 11/27/20 15:26 Pulse Ox 96 11/27/20 15:26 11/27/20 11/27/20 11/27/20 06:59 14:59 22:59 Intake Total 120 / 120 Output Total 350 / 675 300 / 300 Balance -350 / 418.416 120 / 120 -300 / -180 Physical Exam Narrative: EXAM NARRATIVE: GENERAL: Patient is alert, awake and oriented x3. NECK: No jugular vein distension. HEENT: No cyanosis. No icterus. No pallor. HEART: Regular S1 and S2. No murmur, rub or gallop. LUNGS: Clear to auscultate bilaterally. ABDOMEN: Soft, nontender and nondistended. Positive bowel sounds. No guarding, rebound or tenderness. CENTRAL NERVOUS SYSTEM: Grossly nonfocal. EXTREMITIES: Lower extremities without edema bilaterally. Pulses not palpable in the lower extremities, both dorsalis pedis and posterior tibial. Nonhealing right toe wound warm foot and leg. Data : 11/27/20 07:43 11/27/20 07:43 A&P Assessment and plan (1) Critical limb ischemia with history of revascularization of same extremity: As above patient has patent vessels above the knee however below the knee patient has multiple moderate anterior tibial lesion and peroneal artery lesion, chronically occluded posterior tibial vessels with reconstitution in the distal segment. No arch and digital vessels seen. Patient has small vessel disease. I will discuss his case with vascular surgery I am not sure what else can be done I discussed with this patient and his . We will continue medical management and wound care follow-up. Status: Acute (2) Atrial fibrillation: Rate controlled continue current regimen will add back anticoagulation from tonight once complete bedrest. Status: Acute Qualifiers: Atrial fibrillation type: unspecified Qualified Code(s): I48.91 - Unspecified atrial fibrillation (3) ESRD (end stage renal disease): Continue peritoneal dialysis as guided by nephrology Status: Acute Attestations Medical Necessity Statement*: Continuation hospitalization for above defined care for post peripheral angiogram care and for dialysis Coding Level of Care Code Established Pt Acute Rubber Goods Cutter Finisher for g Fwd Patient Type Established History Detailed Exam Detailed Medical Decision Making Moderate Complexity Diagnoses Critical limb ischemia with history of revascularization of same extremity I99.8; Z95.9 Atrial fibrillation I48.91 Atrial fibrillation type: unspecified ESRD (end stage renal disease) N18.6
[2020-11-27 17:13] LABS: Glucose Point of Care 176 mg/dL (70-110)
[2020-11-27] MEDS: cloNIDine 0.1 mg Tablet PO (18:18)
[2020-11-27] MEDS: HYDROcodone-acetaminophen 5-325 mg Tablet 1 TAB PO (18:18)
[2020-11-27] MEDS: iron polysaccharide complex 150 mg Capsule PO (18:18)
[2020-11-27 20:11] LABS: Glucose Point of Care 164 mg/dL (70-110)
[2020-11-27] MEDS: citalopram 20 mg Tablet PO (20:39)
[2020-11-27] MEDS: metoprolol tartrate 50 mg Tablet 75 MG PO (20:39)
[2020-11-27] MEDS: amlodipine 5 mg Tablet PO (20:39)
[2020-11-27] MEDS: losartan 50 mg Tablet 100 MG PO (20:39)
[2020-11-28] VITALS (18 sets, daily range): BP systolic 128–148; BP diastolic 69–99; PULSE 81–107; RESP 13–24; TEMP 37.1–37.2; O2SAT 93–96
[2020-11-28] MEDS: atorvastatin 40 mg Tablet 20 MG PO (05:22)
[2020-11-28] MEDS: levothyroxine 150 mcg Tablet PO (05:22)
[2020-11-28] MEDS: TORSEmide 20 mg Tablet 100 MG PO (05:22)
[2020-11-28] MEDS: pantoprazole DR 40 mg Tablet PO (05:22)
[2020-11-28] MEDS: allopurinol 300 mg Tablet PO (05:23)
[2020-11-28 06:49] LABS: Glucose Point of Care 142 mg/dL (70-110)
--- NOTE | 2020-11-28 07:37 | P.PN_ITS ---
Subjective Subjective: Interval history: feels well. denies feet pain. has edema by ankles. no n/v/f/c/bhakta/d. denies lightheadedness. Medications: Reviewed: Yes Medication Review Details: Current Medications Acetaminophen (Acetaminophen 500 Mg Tablet) 1,000 mg PO PRN PRN PRN Reason: MILD PAIN OR INCREASE TEMP Hydrocodone Bitart/Acetaminophen (Hydrocodone-Acetaminophen 5-325 Mg Tablet) 1 tab PO Q8H PRN PRN Reason: MODERATE PAIN Last Admin: 11/27/20 18:18 Dose: 1 tab Documented by: Al Hydrox/Mg Hydrox/Simethicone (Rmmz-Brq-Giivvgmwp-Camila 30 Ml Udc) 30 ml PO Q15M PRN PRN Reason: INDIGESTION Allopurinol (Allopurinol 300 Mg Tablet) 300 mg PO QAM [facility] Last Admin: 11/28/20 05:23 Dose: 300 mg Documented by: Alprazolam (Alprazolam 0.25 Mg Tablet) 0.25 mg PO TID PRN PRN Reason: ANXIETY Amlodipine Besylate (Amlodipine 5 Mg Tablet) 5 mg PO BEDTIME [facility] Last Admin: 11/27/20 20:39 Dose: 5 mg Documented by: Atorvastatin Calcium (Atorvastatin 40 Mg Tablet) 20 mg PO QAM [facility] Last Admin: 11/28/20 05:22 Dose: 20 mg Documented by: Atropine Sulfate (Atropine 1 Mg/Ml Sdv 1 Ml) 0.5 mg IVP PRN PRN PRN Reason: Symptomatic bradycardia Citalopram Hydrobromide (Citalopram 20 Mg Tablet) 20 mg PO BEDTIME [facility] Last Admin: 11/27/20 20:39 Dose: 20 mg Documented by: Clonidine HCl (Clonidine 0.1 Mg Tablet) 0.1 mg PO BID [facility] Last Admin: 11/27/20 18:18 Dose: 0.1 mg Documented by: Cyclobenzaprine HCl (Cyclobenzaprine 10 Mg Tablet) 5 mg PO Q8H PRN PRN Reason: muscle spasms Ergocalciferol (Ergocalciferol (Vitamin D2) 50,000 Unit Capsule) 50,000 unit PO [facility] Fentanyl (Fentanyl 50 Mcg/Ml Inj 2ml) 50 mcg IVP PRN PRN PRN Reason: PAIN Insulin Aspart (Insulin Aspart 100 Unit/1 Ml) 0 unit SUBCUT WM&BEDTIME [facility]; Protocol Last Admin: 11/27/20 20:34 Dose: 1 unit Documented by: Levothyroxine Sodium (Levothyroxine 150 Mcg Tablet) 150 mcg PO [facility] Last Admin: 11/28/20 05:22 Dose: 150 mcg Documented by: Losartan Potassium (Losartan 50 Mg Tablet) 100 mg PO BEDTIME [facility] Last Admin: 11/27/20 20:39 Dose: 100 mg Documented by: Magnesium Hydroxide (Magnesium Hydroxide 30 Ml Udc) 30 ml PO DAILY PRN PRN Reason: CONSTIPATION Metoprolol Tartrate (Metoprolol Tartrate 50 Mg Tablet) 75 mg PO BID@0900,2100 [facility] Last Admin: 11/27/20 20:39 Dose: 75 mg Documented by: Naloxone HCl (Naloxone 0.4 Mg/Ml Sdv) 0.1 mg IVP Q2M PRN PRN Reason: RESPIRATORY RATE < 8/MIN Nitroglycerin (Nitroglycerin 0.4 Mg Sublingual Tablet) 0.4 mg SUBLINGUAL Q5M PRN PRN Reason: CHEST PAIN Non-Formulary Medication (Peritoneal Dialysis Solution) 0 irrig XX DIRECTED [facility] Non-Formulary Medication (Paricalcitol [Zemplar]) 1 mcg PO [facility] Last Admin: 11/28/20 06:37 Dose: Not Given Documented by: Non-Formulary Medication (Renal Factor Plus) 1 tab PO [facility] Last Admin: 11/28/20 06:37 Dose: Not Given Documented by: Pantoprazole Sodium (Pantoprazole Dr 40 Mg Tablet) 40 mg PO [facility] Last Admin: 11/28/20 05:22 Dose: 40 mg Documented by: Polysaccharide Iron Complex (Iron Polysaccharide Complex 150 Mg Capsule) 150 mg PO BID [facility] Last Admin: 11/27/20 18:18 Dose: 150 mg Documented by: Silver Sulfadiazine (Silvasorb Gel 44.4 Ml) 1 applic TOPICAL Q24H [facility] Last Admin: 11/26/20 17:15 Dose: 1 applic Documented by: Temazepam (Temazepam 15 Mg Capsule) 15 mg PO BEDTIME PRN PRN Reason: INSOMNIA Torsemide (Torsemide 20 Mg Tablet) 100 mg PO [facility] Last Admin: 11/28/20 05:22 Dose: 100 mg Documented by: Vitals/I&O/Wt Last Vital Signs Temp 98.7 F 11/28/20 07:21 Pulse 96 11/28/20 07:21 Resp 21 H 11/28/20 07:21 BP 128/89 11/28/20 07:21 Pulse Ox 94 11/28/20 07:21 11/27/20 11/28/20 11/28/20 22:59 06:59 14:59 Intake Total 478 / 598 Output Total 660 / 980 700 / 1680 Balance -182 / -382 -700 / -1082 Physical Exam Narrative: EXAM NARRATIVE: comfortable, NARD VSS HEENT: nc/at, eomi, anicteric neck supple, no jvp, no bruits Lungs: Bilaterally clear CVS: S1 S2, no murmurs appreciated Abdo: Soft, BS ok, exit site looks good Ext 4: Minimal ankle edema Neurological: a,a, o x 3 pulses weak skin no rash mood normal Data : 11/27/20 07:43 11/27/20 07:43 A&P Additional A&P Information 1. ESRD on PD While in the hospital- he has been continuing his home PD, using his cycler, CCPD prescription of 3 exchanges over 7 hours, 2 L of 2.5% solution and a last fill. 2. Electrolytes monitor hyponatremia w/ PD -k normal monitor ca and phos 3. LE arterial insufficiency Angio done, results per Dr Jaime 4. Hb stable after PRBCs -epo 5. htn okay d/c per cardiology Patient seen and examined via telemedicine, with the assistance of the bedside RN > 25 min spent in evaluation and mgmt of patient Attestations Medical Necessity Statement*: per cardiology Time Spent in Patient Care: 16 - 35 minutes Coding Level of Care Code Acute Technical Service Specialist for Chg More
[2020-11-28] MEDS: metoprolol tartrate 50 mg Tablet 75 MG PO (08:05)
[2020-11-28] MEDS: iron polysaccharide complex 150 mg Capsule PO (08:05)
[2020-11-28] MEDS: HYDROcodone-acetaminophen 5-325 mg Tablet 1 TAB PO (08:05)
[2020-11-28] MEDS: cloNIDine 0.1 mg Tablet PO (08:06)
--- NOTE | 2020-11-28 10:46 | PC.SOCIAL ---
*IMM UPDATE* Gave patient IMM update. Left copy of pg 2 in room. Initialed, dated, timed and in chart.
[2020-11-28 11:27] LABS: Glucose Point of Care 176 mg/dL (70-110)
--- NOTE | 2020-11-28 12:57 | P.DS_ITS ---
Discharge Providers Date of Admission: 11/25/20 12:44 Date of Discharge: November 28, 2020 Attending Provider at Admission: Salvador Jaime MD Attending Provider at Discharge: Salvador Jaime MD Primary Care Provider: Anmol Santiago Diagnoses at Discharge Discharge Diagnosis (1) Critical limb ischemia with history of revascularization of same extremity: Status: Acute (2) Atrial fibrillation: Status: Acute Qualifiers: Atrial fibrillation type: unspecified Qualified Code(s): I48.91 - Unspecified atrial fibrillation (3) ESRD (end stage renal disease): Status: Acute Reason for Visit Reason for Visit: prehydration for procedure Hospital Course Hospital Course 65-year-old male past medical history significant obesity hypertension hyperlipidemia obstructive sleep apnea diabetes mellitus chronic kidney disease on peritoneal dialysis for critical limb ischemia and nonhealing right toe ulcer underwent peripheral angiogram noted to have good flow above the knee mild below the knee vessels including posterior tibial was known to be occluded reconstituting the distal segment from anterior tibial. Anterior tibial had proximal and mid moderate stenosis. No arch and arch vessels were visualized consistent with highly calcified chronically occluded vessels not amenable to intervention. We will refer the patient to vascular surgery at [facility] to Dr. Bernardino Hayward to see whether he can help him out otherwise continue conservative medical management and follow-up with the wound care. Patient denies any pain cramps in the legs. Right foot looks good. On the left side patient has good two-vessel runoff below the knee and no significant stenosis no vel. A. fib remains under control so does the blood pressure. We will discharge the patient I will see him back in 6 to 8 weeks. I will refer him to Dr. Hayward patient has been advised in case he does not hear anything from Dr. Hayward he should let us know. Physical Exam Narrative: EXAM NARRATIVE: GENERAL: Patient is alert, awake and oriented x3. NECK: No jugular vein distension. HEENT: No cyanosis. No icterus. No pallor. HEART: Irregularly irregular S1 and S2. No murmur, rub or gallop. LUNGS: Clear to auscultate bilaterally. ABDOMEN: Soft, nontender and nondistended. Positive bowel sounds. No guarding, rebound or tenderness. CENTRAL NERVOUS SYSTEM: Grossly nonfocal. EXTREMITIES: Lower extremities without edema bilaterally. Pulses not palpable in the lower extremities, both dorsalis pedis and posterior tibial. Nonhealing right toe wound warm foot and leg. Const: COMMON NORMALS: alert Resp: COMMON NORMALS: clear to auscultation bilaterally AUSCULTATION: clear to auscultation bilaterally Neuro: SENSORIUM/ORIENTATION: Yes alert Discharge Data Data Completed and Pending: Pending at discharge Category Date Time Status DIRECTOR OF PSYCHIATRY request for service Routin e Exams 11/27/20 07:00 Ordered DIRECTOR OF PSYCHIATRY request for service Routin e Exams 11/27/20 08:47 Ordered 25 Hydroxy Vitami n D AM LABS Lab 11/29/20 04:00 Ordered Complete Blood Co unt w/Auto AM LABS Lab 11/29/20 04:00 Ordered Complete Blood Co unt w/Auto AM LABS Lab 11/30/20 04:00 Ordered Complete Blood Co unt w/Auto AM LABS Lab 12/01/20 04:00 Ordered Comprehensive Met abolic Panel AM LA BS Lab 11/29/20 04:00 Ordered Comprehensive Met abolic Panel AM LA BS Lab 11/30/20 04:00 Ordered Comprehensive Met abolic Panel AM LA BS Lab 12/01/20 04:00 Ordered Magnesium AM LABS Lab 11/29/20 04:00 Ordered Magnesium AM LABS Lab 11/30/20 04:00 Ordered Magnesium AM LABS Lab 12/01/20 04:00 Ordered PTH [Parathyroid With Calcium] AM L ABS Lab 11/29/20 04:00 Ordered Phosphorus AM LAB S Lab 11/29/20 04:00 Ordered Phosphorus AM LAB S Lab 11/30/20 04:00 Ordered Phosphorus AM LAB S Lab 12/01/20 04:00 Ordered Uric Acid Routine Lab 11/28/20 09:52 Ordered Labs from last 24 hours 11/28/20 11/28/20 11/27/20 10:53 06:43 19:57 APTT POC Glucose 176 H 142 H 164 H 11/27/20 11/27/20 16:23 12:49 APTT 29.9 POC Glucose 176 H Vitals: Last Vital Signs Temp 99.0 F 11/28/20 10:24 Pulse 85 11/28/20 10:24 Resp 23 H 11/28/20 10:24 BP 148/99 11/28/20 10:24 Pulse Ox 93 11/28/20 10:24 Discharge Plan Discharge Patient Disposition: Home Condition: Stable Prescriptions: Continued amlodipine 10 mg tablet 10 mg PO BEDTIME RF: 0 amoxicillin-pot clavulanate [Augmentin] 500-125 mg tablet 1 tab PO BID 30 Days Qty: 60 RF: 0 levofloxacin 750 mg tablet 750 mg PO Q48H 42 Days Qty: 21 RF: 0 Eliquis DVT-PE Treat 30D Start 5 mg (74 tabs) tablets,dose pack 5 mg PO .COMPLEX 90 Days Qty: 180 RF: 3 cyclobenzaprine 10 mg tablet 5 mg PO Q8H PRN (Reason: muscle spasms) RF: 0 torsemide 100 mg tablet 100 mg PO QAM RF: 0 levothyroxine 150 mcg tablet 150 mcg PO QAM RF: 0 ergocalciferol (vitamin D2) 1,250 mcg (50,000 unit) capsule 1,250 mcg PO Q7D RF: 0 losartan 100 mg tablet 100 mg PO DAILY RF: 0 atorvastatin 20 mg tablet 20 mg PO QAM RF: 0 citalopram 20 mg tablet 20 mg PO BEDTIME RF: 0 pantoprazole 40 mg tablet,delayed release (DR/EC) 40 mg PO DAILY RF: 0 allopurinol 300 mg tablet 300 mg PO QAM RF: 0 clonidine HCl 0.1 mg tablet 0.1 mg PO BID RF: 0 paricalcitol [Zemplar] 1 mcg Capsule 1 mcg PO QAM RF: 0 polysaccharide iron complex [Ferrex 150] 150 mg iron capsule 150 mg PO BID RF: 0 hydrocodone-acetaminophen 5-325 mg Tablet 1 tab PO Q8H PRN (Reason: Moderate Pain) Qty: 15 RF: 0 Auryxia 210 mg iron Tablet 210 mg PO TID RF: 0 metoprolol tartrate 100 mg Tablet 100 mg PO Q12H RF: 0 glipizide 5 mg tablet 5 mg PO DAILY RF: 0 Discharge Orders: Discharge Order (Routine); Ordered 11/28/20 Ordered By: Salvador Jaime Referrals: Salvador Jaime MD [Physician] - ([facility] will contact will contact you to schedule an follow-up appointment with Dr. Jaime in 6 to 8 weeks. If you haven't heard from them by Sunday. Ple ase call Also, you will be hearing from Dr. Bernardino Hayward vascular surgeon at [facility]. If you do not hear from Dr. Hayward over next week please call Dr. Jaime's office. ) Discharge Diet: Cardiac Discharge Activity: Increase activity as tolerated Patient Instructions: Post Angiogram Home Care Instructions Activity Restrictions/Additional Instructions: Follow-up with Dr. Jaime in 6 to 8 weeks. You will be hearing from Dr. Sandor Hayward vascular surgeon at [facility]. If you do not hear from Dr. Hayward over next [address] Gar's office. Discharge Attestations Time Spent in Discharge Care*: greater than 30 min Status at Discharge: Cognitive status at discharge: cognitively intact , Behavioral status at discharge: cooperative , Quality Metrics Clinical Quality Measures During this hospital stay, did patient experience: None Coding Level of Care Code Established Pt Acute Chg FW DC note Patient Type Established History Expanded Problem Focused Exam Expanded Problem Focused Medical Decision Making Moderate Complexity Diagnoses Critical limb ischemia with history of revascularization of same extremity I99.8; Z95.9 Atrial fibrillation I48.91 Atrial fibrillation type: unspecified ESRD (end stage renal disease) N18.6
== END 2020-11-28 13:45 | disposition home or self-care (01) | DRG 299 ==
PROVIDERS: Admitting Provider Internal Medicine Cardiovascular Disease; PCP Physician Assistant Medical; Visit Provider Internal Medicine Cardiovascular Disease
PROC: B41DYZZ Fluoroscopy of Aorta and Bilateral Lower Extremity Arteries using Other Contrast (ICD-10-PCS; principal; 2020-11-27 07:00)
DX: E11.51 Type 2 diabetes mellitus with diabetic peripheral angiopathy without gangrene (principal); N18.6 End stage renal disease; I12.0 Hypertensive chronic kidney disease with stage 5 chronic kidney disease or end stage renal disease; Z68.41 Body mass index [BMI] 40.0-44.9, adult; L97.519 Non-pressure chronic ulcer of other part of right foot with unspecified severity; I70.235 Atherosclerosis of native arteries of right leg with ulceration of other part of foot; D64.9 Anemia, unspecified; E11.22 Type 2 diabetes mellitus with diabetic chronic kidney disease; I48.91 Unspecified atrial fibrillation; G47.33 Obstructive sleep apnea (adult) (pediatric); E11.40 Type 2 diabetes mellitus with diabetic neuropathy, unspecified; E78.5 Hyperlipidemia, unspecified; M10.9 Gout, unspecified; E03.9 Hypothyroidism, unspecified; E66.01 Morbid (severe) obesity due to excess calories; Z99.2 Dependence on renal dialysis; Z79.891 Long term (current) use of opiate analgesic; Z79.01 Long term (current) use of anticoagulants; Z79.84 Long term (current) use of oral hypoglycemic drugs; Z86.718 Personal history of other venous thrombosis and embolism; Z86.14 Personal history of Methicillin resistant Staphylococcus aureus infection
CPT/HCPCS: 36415; 36416; 36430; 75625; 75716; 80048; 82962; 85025; 85651; 85730; 86850; 86900; 86920; 87426; 96372; C1769; C1887; C1894; J1644; J1815; J2250; J3010; J7030; P9016; Q0163; Q3014; Q9967

== ENCOUNTER 2020-11-26 06:00 | Day surgery (SDC) | payer MEDICARE, OTHER, SELFPAY | END 2020-11-26 06:01 | disposition home or self-care (01) | LOC: CCL 11-10 10:02 | PROVIDERS: PCP Podiatrist Foot & Ankle Surgery; Visit Provider Internal Medicine Cardiovascular Disease | DX: Z01.818 Encounter for other preprocedural examination (principal) | CPT/HCPCS: J1644 ==

== ENCOUNTER 2020-12-03 08:43 | Outpatient (CLI) | payer MEDICARE, OTHER, SELFPAY | END 2020-12-03 08:44 | disposition home or self-care (01) | LOC: WOUND 08:44 | PROVIDERS: PCP Physician Assistant Medical; Visit Provider Surgery | DX: E11.621 Type 2 diabetes mellitus with foot ulcer (principal); L97.512 Non-pressure chronic ulcer of other part of right foot with fat layer exposed | CPT/HCPCS: 11042; 97605 ==

== ENCOUNTER 2020-12-10 08:46 | Outpatient (CLI) | payer MEDICARE, OTHER, SELFPAY | END 2020-12-10 08:47 | disposition home or self-care (01) | LOC: WOUND 08:47 | PROVIDERS: PCP Physician Assistant Medical; Visit Provider Surgery | DX: E11.621 Type 2 diabetes mellitus with foot ulcer (principal); L97.512 Non-pressure chronic ulcer of other part of right foot with fat layer exposed | CPT/HCPCS: 11042; 97605 ==

== ENCOUNTER 2020-12-17 08:26 | Outpatient (CLI) | payer MEDICARE, OTHER, SELFPAY | END 2020-12-17 08:27 | disposition home or self-care (01) | LOC: WOUND 08:27 | PROVIDERS: PCP Physician Assistant Medical; Visit Provider Surgery | DX: E11.621 Type 2 diabetes mellitus with foot ulcer (principal); L97.512 Non-pressure chronic ulcer of other part of right foot with fat layer exposed | CPT/HCPCS: 11042; 97605 ==

== ENCOUNTER → 2020-12-21 12:50 | Outpatient (BNVA) | payer MEDICARE, OTHER, SELFPAY | PROVIDERS: PCP Physician Assistant Medical; Visit Provider Student in an Organized Health Care Education/Training Program | DX: I80.8 Phlebitis and thrombophlebitis of other sites (principal); A41.52 Sepsis due to Pseudomonas | CPT/HCPCS: 87040 ==

== ENCOUNTER 2020-12-24 08:37 | Outpatient (CLI) | payer MEDICARE, OTHER, SELFPAY | END 2020-12-24 08:38 | disposition home or self-care (01) | LOC: WOUND 08:38 | PROVIDERS: PCP Physician Assistant Medical; Visit Provider Surgery | DX: E11.621 Type 2 diabetes mellitus with foot ulcer (principal); L97.512 Non-pressure chronic ulcer of other part of right foot with fat layer exposed | CPT/HCPCS: 11042 ==

== ENCOUNTER 2020-12-31 08:41 | Outpatient (CLI) | payer MEDICARE, OTHER, SELFPAY | END 2020-12-31 08:42 | disposition home or self-care (01) | LOC: WOUND 08:46 | PROVIDERS: PCP Physician Assistant Medical; Visit Provider Surgery | DX: E11.621 Type 2 diabetes mellitus with foot ulcer (principal); L97.512 Non-pressure chronic ulcer of other part of right foot with fat layer exposed | CPT/HCPCS: 11043 ==

== ENCOUNTER 2021-01-07 08:06 | Outpatient (CLI) | payer MEDICARE, OTHER, SELFPAY | END 2021-01-07 08:07 | disposition home or self-care (01) | LOC: WOUND 08:09 | PROVIDERS: PCP Physician Assistant Medical; Visit Provider Nurse Practitioner Family | DX: E11.621 Type 2 diabetes mellitus with foot ulcer (principal); L97.512 Non-pressure chronic ulcer of other part of right foot with fat layer exposed | CPT/HCPCS: 11042 ==

== ENCOUNTER 2021-01-19 19:28 | Outpatient (CLI) | payer MEDICARE, OTHER, SELFPAY ==
[2021-01-19 19:37] LABS: Basophils % 0.3 %; Eosinophils # 0.5 10^3/uL (0.0-0.8); Eosinophils % 3.9 %; Hematocrit 24.5 % (42.0-52.0); Hemoglobin 7.2 g/dL (11.7-16.6); Lymphocytes # 1.4 10^3/uL (0.8-4.8); Lymphocytes % 11.4 %; Mean Corpuscular HGB Conc 29.4 g/dL (30.0-36.0); Mean Corpuscular Hemoglobin 28.2 pg (28.0-34.0); Mean Corpuscular Volume 96.1 fL (80-94); Mean Platelet Volume 10.3 fL (7.4-10.4); Monocytes # 1.4 10^3/uL (0.2-0.9); Monocytes % 11.8 %; Neutrophils # 8.39 10^3/uL (1.8-7.7); Neutrophils % 70.3 %; Nucleated Red Blood Cells % 0 %; Platelet Count 254 10^3/cmm (130-400); Red Blood Count 2.55 10^6/uL (4.1-5.3); Red Cell Distribution Width 17.5 % (12.1-15.1); White Blood Count 11.9 10^3/uL (4.0-10.0)
[2021-01-19 19:53] LABS: Alanine Aminotransferase < 5 U/L (0-41); Albumin Level 2.7 g/dL (3.5-5.2); Alkaline Phosphatase 134 IU/L (40-130); Aspartate Amino Transferase 15 U/L (0-40); Blood Urea Nitrogen 79 mg/dL (8-23); Calcium 8.7 mg/dL (8.5-10.5); Carbon Dioxide 24 mmol/L (22-29); Chloride 96 mmol/L (98-107); Globulin 3.4 g/dL (1.3-4.6); Glomerular Filtration Rate 11.4 mL/min (90-130); Glucose 123 mg/dL (65-115); Osmolality Calculated 301 mOsm/kg (285-295); Sodium 133 mmol/L (136-145); Total Bilirubin 0.2 mg/dL (0.15-1.2); Total Protein 6.1 g/dL (6.6-8.7)
[2021-01-19 21:12] LABS: Erythrocyte Sedimentation Rate > 120 mm/hr (0-10)
== END 2021-01-19 19:29 | disposition home or self-care (01) ==
LOC: LAB 19:29
PROVIDERS: PCP Physician Assistant Medical; Visit Provider Physician Assistant Medical
DX: E11.621 Type 2 diabetes mellitus with foot ulcer (principal)
CPT/HCPCS: 80053; 85025; 85651

== ENCOUNTER 2021-01-21 08:23 | Outpatient (CLI) | payer MEDICARE, OTHER, SELFPAY | END 2021-01-21 08:24 | disposition home or self-care (01) | LOC: WOUND 08:24 | PROVIDERS: PCP Physician Assistant Medical; Visit Provider Nurse Practitioner Family | DX: E11.621 Type 2 diabetes mellitus with foot ulcer (principal); L97.512 Non-pressure chronic ulcer of other part of right foot with fat layer exposed | CPT/HCPCS: 11042 ==

== ENCOUNTER 2021-01-24 12:43 | Outpatient (CLI) | payer MEDICARE, OTHER, SELFPAY ==
[2021-01-24 13:37] LABS: Basophils % 0.3 %; Eosinophils # 0.3 10^3/uL (0.0-0.8); Hematocrit 24.3 % (42.0-52.0); Lymphocytes # 1.1 10^3/uL (0.8-4.8); Lymphocytes % 11.4 %; Mean Corpuscular HGB Conc 28.8 g/dL (30.0-36.0); Mean Corpuscular Hemoglobin 27.9 pg (28.0-34.0); Mean Corpuscular Volume 96.8 fL (80-94); Mean Platelet Volume 10.9 fL (7.4-10.4); Neutrophils # 7.12 10^3/uL (1.8-7.7); Nucleated Red Blood Cells % 0 %; Platelet Count 188 10^3/cmm (130-400); Red Blood Count 2.51 10^6/uL (4.1-5.3); Red Cell Distribution Width 17.9 % (12.1-15.1); White Blood Count 9.6 10^3/uL (4.0-10.0)
[2021-01-24 13:56] LABS: Alanine Aminotransferase < 5 U/L (0-41); Alkaline Phosphatase 152 IU/L (40-130); Anion Gap 19.4 (5-19); Aspartate Amino Transferase 12 U/L (0-40); Blood Urea Nitrogen 63 mg/dL (8-23); Calcium 8.3 mg/dL (8.5-10.5); Carbon Dioxide 23 mmol/L (22-29); Chloride 96 mmol/L (98-107); Glucose 198 mg/dL (65-115); Osmolality Calculated 304 mOsm/kg (285-295); Potassium 3.4 mmol/L (3.5-5.1); Sodium 135 mmol/L (136-145); Total Bilirubin 0.2 mg/dL (0.15-1.2)
== END 2021-01-24 12:44 | disposition home or self-care (01) ==
LOC: LAB 12:47
PROVIDERS: PCP Physician Assistant Medical; Visit Provider Physician Assistant Medical
DX: E11.621 Type 2 diabetes mellitus with foot ulcer (principal)
CPT/HCPCS: 80053; 85025; 86140

== ENCOUNTER 2021-01-24 13:34 | Outpatient (CLI) | payer MEDICARE, OTHER, SELFPAY | END 2021-01-24 13:35 | disposition home or self-care (01) | LOC: WOUND 13:35 | PROVIDERS: PCP Physician Assistant Medical; Visit Provider Thoracic Surgery (Cardiothoracic Vascular Surgery) | DX: E11.621 Type 2 diabetes mellitus with foot ulcer (principal); L97.512 Non-pressure chronic ulcer of other part of right foot with fat layer exposed | CPT/HCPCS: 11042; 80053; 85025; 86140 ==

== ENCOUNTER 2021-02-02 10:03 | Outpatient (CLI) | payer MEDICARE, OTHER, SELFPAY ==
[2021-02-02 10:22] LABS: Basophils % 0.4 %; Eosinophils # 0.4 10^3/uL (0.0-0.8); Eosinophils % 4.5 %; Hematocrit 26.1 % (42.0-52.0); Hemoglobin 7.9 g/dL (11.7-16.6); Lymphocytes # 0.7 10^3/uL (0.8-4.8); Mean Corpuscular HGB Conc 30.3 g/dL (30.0-36.0); Mean Corpuscular Hemoglobin 28.9 pg (28.0-34.0); Mean Corpuscular Volume 95.6 fL (80-94); Mean Platelet Volume 10.8 fL (7.4-10.4); Monocytes # 1.2 10^3/uL (0.2-0.9); Monocytes % 15.5 %; Neutrophils # 5.61 10^3/uL (1.8-7.7); Nucleated Red Blood Cells % 0 %; Platelet Count 156 10^3/cmm (130-400); Red Blood Count 2.73 10^6/uL (4.1-5.3)
[2021-02-02 10:40] LABS: Alanine Aminotransferase 8 U/L (0-41); Albumin Level 3.1 g/dL (3.5-5.2); Alkaline Phosphatase 107 IU/L (40-130); Anion Gap 17.2 (5-19); Aspartate Amino Transferase 12 U/L (0-40); Blood Urea Nitrogen 51 mg/dL (8-23); C Reactive Protein 27.7 mg/L (0.0-4.9); Calcium 8.5 mg/dL (8.5-10.5); Carbon Dioxide 25 mmol/L (22-29); Chloride 97 mmol/L (98-107); Globulin 3.1 g/dL (1.3-4.6); Glomerular Filtration Rate 10.9 mL/min (90-130); Glucose 99 mg/dL (65-115); Osmolality Calculated 296 mOsm/kg (285-295); Potassium 3.2 mmol/L (3.5-5.1); Sodium 136 mmol/L (136-145); Total Bilirubin 0.2 mg/dL (0.15-1.2); Total Protein 6.2 g/dL (6.6-8.7)
[2021-02-02 11:04] LABS: Estmated Average Glucose 117; Hemoglobin A1C 5.7 % (4.0-6.0)
[2021-02-02 11:42] LABS: Erythrocyte Sedimentation Rate 10 mm/hr (0-10)
== END 2021-02-02 10:04 | disposition home or self-care (01) ==
LOC: LAB 10:04
PROVIDERS: Podiatrist Foot & Ankle Surgery; Student in an Organized Health Care Education/Training Program; PCP Physician Assistant Medical; Visit Provider Internal Medicine Infectious Disease
DX: E11.621 Type 2 diabetes mellitus with foot ulcer (principal); L97.513 Non-pressure chronic ulcer of other part of right foot with necrosis of muscle; L97.514 Non-pressure chronic ulcer of other part of right foot with necrosis of bone; M86.9 Osteomyelitis, unspecified; I80.8 Phlebitis and thrombophlebitis of other sites
CPT/HCPCS: 80053; 83036; 85025; 85651; 86140

== ENCOUNTER 2021-02-04 14:43 | Outpatient (CLI) | payer MEDICARE, OTHER, SELFPAY | END 2021-02-04 14:44 | disposition home or self-care (01) | LOC: WOUND 14:44 | PROVIDERS: PCP Physician Assistant Medical; Visit Provider Surgery | DX: E11.621 Type 2 diabetes mellitus with foot ulcer (principal); L97.512 Non-pressure chronic ulcer of other part of right foot with fat layer exposed | CPT/HCPCS: 11042 ==

== ENCOUNTER 2021-02-09 06:00 | Outpatient (CLI) | payer MEDICARE, OTHER, SELFPAY ==
[2021-02-09 16:13] LABS: Albumin Level 3.3 g/dL (3.5-5.2)
== END 2021-02-09 06:01 | disposition home or self-care (01) ==
LOC: LAB 01-23 13:23
PROVIDERS: Visit Provider Podiatrist Foot & Ankle Surgery
DX: M86.9 Osteomyelitis, unspecified (principal); E11.621 Type 2 diabetes mellitus with foot ulcer
CPT/HCPCS: 82040

== ENCOUNTER 2021-02-11 08:22 | Outpatient (CLI) | payer MEDICARE, OTHER, SELFPAY | END 2021-02-11 08:23 | disposition home or self-care (01) | LOC: WOUND 08:23 | PROVIDERS: PCP Physician Assistant Medical; Visit Provider Surgery | DX: E11.621 Type 2 diabetes mellitus with foot ulcer (principal); L97.512 Non-pressure chronic ulcer of other part of right foot with fat layer exposed | CPT/HCPCS: 11042 ==

== ENCOUNTER 2021-02-14 23:55 | Outpatient (CLI) | payer MEDICARE, OTHER, SELFPAY ==
[2021-02-15 00:01] LABS: Basophils % 0.4 %; Eosinophils # 0.3 10^3/uL (0.0-0.8); Eosinophils % 3.1 %; Hemoglobin 9.4 g/dL (11.7-16.6); Lymphocytes # 1.1 10^3/uL (0.8-4.8); Lymphocytes % 10.5 %; Mean Corpuscular HGB Conc 30.3 g/dL (30.0-36.0); Mean Platelet Volume 9.9 fL (7.4-10.4); Monocytes % 9.5 %; Neutrophils # 7.52 10^3/uL (1.8-7.7); Neutrophils % 75.4 %; Nucleated Red Blood Cells % 0 %; Platelet Count 190 10^3/cmm (130-400); Red Blood Count 3.13 10^6/uL (4.1-5.3); Red Cell Distribution Width 17.6 % (12.1-15.1)
[2021-02-15 00:03] LABS: Alanine Aminotransferase 10 U/L (0-41); Albumin Level 3.1 g/dL (3.5-5.2); Alkaline Phosphatase 145 IU/L (40-130); Anion Gap 20.8 (5-19); Aspartate Amino Transferase 12 U/L (0-40); Blood Urea Nitrogen 55 mg/dL (8-23); Calcium 8.7 mg/dL (8.5-10.5); Carbon Dioxide 25 mmol/L (22-29); Chloride 94 mmol/L (98-107); Globulin 3.5 g/dL (1.3-4.6); Glomerular Filtration Rate 9.8 mL/min (90-130); Glucose 129 mg/dL (65-115); Osmolality Calculated 301 mOsm/kg (285-295); Sodium 137 mmol/L (136-145); Total Bilirubin 0.2 mg/dL (0.15-1.2); Total Protein 6.6 g/dL (6.6-8.7)
[2021-02-15 00:18] LABS: Potassium 2.8 mmol/L (3.5-5.1)
== END 2021-02-14 23:56 | disposition home or self-care (01) ==
LOC: LAB 23:56
PROVIDERS: PCP Physician Assistant Medical; Visit Provider Physician Assistant Medical
DX: E11.621 Type 2 diabetes mellitus with foot ulcer (principal)
CPT/HCPCS: 80053; 85025; 86140

== ENCOUNTER 2021-02-18 07:59 | Outpatient (CLI) | payer MEDICARE, OTHER, SELFPAY | END 2021-02-18 08:00 | disposition home or self-care (01) | LOC: WOUND 08:00 | PROVIDERS: PCP Physician Assistant Medical; Visit Provider Nurse Practitioner Family | DX: E11.621 Type 2 diabetes mellitus with foot ulcer (principal); L97.511 Non-pressure chronic ulcer of other part of right foot limited to breakdown of skin | CPT/HCPCS: 11042 ==

== ENCOUNTER 2021-02-21 13:38 | Outpatient (CLI) | payer MEDICARE, OTHER, SELFPAY ==
[2021-02-21 13:57] LABS: Basophils # 0.1 10^3/uL (0.0-0.1); Basophils % 0.5 %; Eosinophils # 0.4 10^3/uL (0.0-0.8); Eosinophils % 3.9 %; Hematocrit 30.7 % (42.0-52.0); Hemoglobin 9.5 g/dL (11.7-16.6); Lymphocytes % 8.8 %; Mean Corpuscular HGB Conc 30.9 g/dL (30.0-36.0); Mean Corpuscular Hemoglobin 29.9 pg (28.0-34.0); Mean Corpuscular Volume 96.5 fL (80-94); Mean Platelet Volume 10.2 fL (7.4-10.4); Monocytes % 9.1 %; Neutrophils % 76.7 %; Nucleated Red Blood Cells % 0 %; Platelet Count 191 10^3/cmm (130-400); Red Blood Count 3.18 10^6/uL (4.1-5.3); Red Cell Distribution Width 16.8 % (12.1-15.1); White Blood Count 10.8 10^3/uL (4.0-10.0)
[2021-02-21 14:18] LABS: Alanine Aminotransferase 12 U/L (0-41); Albumin Level 3.1 g/dL (3.5-5.2); Alkaline Phosphatase 125 IU/L (40-130); Anion Gap 20.1 (5-19); Aspartate Amino Transferase 15 U/L (0-40); Blood Urea Nitrogen 57 mg/dL (8-23); C Reactive Protein 40.1 mg/L (0.0-4.9); Calcium 8.6 mg/dL (8.5-10.5); Carbon Dioxide 24 mmol/L (22-29); Chloride 96 mmol/L (98-107); Globulin 3.1 g/dL (1.3-4.6); Glomerular Filtration Rate 11.1 mL/min (90-130); Glucose 239 mg/dL (65-115); Osmolality Calculated 308 mOsm/kg (285-295); Potassium 3.1 mmol/L (3.5-5.1); Sodium 137 mmol/L (136-145); Total Bilirubin 0.2 mg/dL (0.15-1.2); Total Protein 6.2 g/dL (6.6-8.7)
== END 2021-02-21 13:39 | disposition home or self-care (01) ==
LOC: LAB 13:39
PROVIDERS: PCP Physician Assistant Medical; Visit Provider Physician Assistant Medical
DX: Z45.2 Encounter for adjustment and management of vascular access device (principal)
CPT/HCPCS: 80053; 85025; 86140

== ENCOUNTER 2021-02-25 08:45 | Outpatient (CLI) | payer MEDICARE, OTHER, SELFPAY | END 2021-02-25 08:46 | disposition home or self-care (01) | LOC: WOUND 08:46 | PROVIDERS: PCP Physician Assistant Medical; Visit Provider Surgery | DX: Z09 Encounter for follow-up examination after completed treatment for conditions other than malignant neoplasm (principal) | CPT/HCPCS: 99212 ==

== ENCOUNTER → 2021-05-03 10:42 | Outpatient (BNVA) | payer MEDICARE, OTHER, SELFPAY | PROVIDERS: PCP Physician Assistant Medical; Visit Provider Podiatrist Foot & Ankle Surgery | DX: E11.42 Type 2 diabetes mellitus with diabetic polyneuropathy (principal); Z89.421 Acquired absence of other right toe(s); M19.071 Primary osteoarthritis, right ankle and foot | CPT/HCPCS: 73630 ==

== ENCOUNTER 2021-05-03 15:56 | Outpatient (CLI) | payer MEDICARE, OTHER, SELFPAY | END 2021-05-03 15:57 | disposition home or self-care (01) | LOC: SPT 15:57 | PROVIDERS: PCP Physician Assistant Medical; Visit Provider Podiatrist Foot & Ankle Surgery | DX: Z46.89 Encounter for fitting and adjustment of other specified devices (principal); L97.514 Non-pressure chronic ulcer of other part of right foot with necrosis of bone; E11.42 Type 2 diabetes mellitus with diabetic polyneuropathy | CPT/HCPCS: 87070; 87075; 87077; 87186; 87205; 97760; L4361 ==

== ENCOUNTER → 2021-05-05 08:50 | Outpatient (BNVA) | payer MEDICARE, OTHER, SELFPAY | PROVIDERS: PCP Physician Assistant Medical; Visit Provider Podiatrist Foot & Ankle Surgery | DX: E11.42 Type 2 diabetes mellitus with diabetic polyneuropathy (principal); L97.514 Non-pressure chronic ulcer of other part of right foot with necrosis of bone | CPT/HCPCS: 87070; 87075; 87077; 87186; 87205 ==

== ENCOUNTER 2021-05-12 13:06 | Outpatient (CLI) | payer MEDICARE, OTHER, SELFPAY | END 2021-05-12 13:07 | disposition home or self-care (01) | LOC: WOUND 13:08 | PROVIDERS: PCP Physician Assistant Medical; Visit Provider Nurse Practitioner Family | DX: E11.621 Type 2 diabetes mellitus with foot ulcer (principal); L97.512 Non-pressure chronic ulcer of other part of right foot with fat layer exposed | CPT/HCPCS: 11042 ==

== ENCOUNTER 2021-05-23 10:42 | Outpatient (CLI) | payer MEDICARE, OTHER, SELFPAY | END 2021-05-23 10:43 | disposition home or self-care (01) | LOC: WOUND 10:45 | PROVIDERS: PCP Physician Assistant Medical; Visit Provider Emergency Medicine | DX: E11.621 Type 2 diabetes mellitus with foot ulcer (principal); L97.519 Non-pressure chronic ulcer of other part of right foot with unspecified severity | CPT/HCPCS: 99215; G0463 ==

== ENCOUNTER 2021-05-27 09:47 | Outpatient (CLI) | payer MEDICARE, OTHER, SELFPAY | END 2021-05-27 09:48 | disposition home or self-care (01) | LOC: WOUND 09:48 | PROVIDERS: PCP Physician Assistant Medical; Visit Provider Surgery | DX: E11.621 Type 2 diabetes mellitus with foot ulcer (principal); L97.514 Non-pressure chronic ulcer of other part of right foot with necrosis of bone | CPT/HCPCS: 11042 ==

== ENCOUNTER → 2021-05-30 15:14 | Outpatient (BNVA) | payer MEDICARE, OTHER, SELFPAY | PROVIDERS: PCP Physician Assistant Medical; Visit Provider Podiatrist Foot & Ankle Surgery | DX: L97.514 Non-pressure chronic ulcer of other part of right foot with necrosis of bone (principal); M19.071 Primary osteoarthritis, right ankle and foot; Z89.421 Acquired absence of other right toe(s) | CPT/HCPCS: 73630 ==

== ENCOUNTER → 2021-06-08 10:15 | Outpatient (BNVA) | payer MEDICARE, OTHER, SELFPAY | PROVIDERS: PCP Physician Assistant Medical; Visit Provider Podiatrist Foot & Ankle Surgery | DX: L97.514 Non-pressure chronic ulcer of other part of right foot with necrosis of bone (principal); Z89.431 Acquired absence of right foot | CPT/HCPCS: 73630 ==

== ENCOUNTER 2021-06-09 08:46 | Inpatient (IN) | payer MEDICARE, OTHER, SELFPAY ==
[2021-06-09] VITALS (8 sets, daily range): BP systolic 136–150; BP diastolic 75–88; PULSE 65–82; RESP 16–20; TEMP 36.8–37; O2SAT 93–99; BMI 42.7
--- NOTE | 2021-06-09 09:38 | XR_ITS ---
WS: [id number] Exam: XR foot RT min 3V* [id number] Date/Time of Exam: 06/09/2021 9:43 AM Reason For Exam: dm foot ulcer There has been partial amputation of the second digit at the level of the distal in the proximal phal anx. There is air in the distal soft tissues. Previous amputation of the proximal aspect of the proxi mal phalanx of the great toe noted. 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 Bony scle rosis and marked degenerative change of the midfoot joints suggesting Charcot's arthropathy. Vascular calcifications about the foot and ankle. XR/XR foot RT min 3V* [id number] IMPRESSION: 1. Partial amputation of the second digit as detailed above. 2. Chronic degenerative and postoperative changes of the foot as discussed maryam mayers
--- NOTE | 2021-06-09 09:39 | ECG_ITS ---
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 Measurements Intervals [place] Rate: 61 P: [place]: QRS: 36 QRSD: 110 T: 37 QT: 442 QTc: 446 Interpretive Statements ATRIAL FIBRILLATION MINIMAL ST DEPRESSION [0.025+ mV ST DEPRESSION] ABNORMAL RHYTHM ECG Compared to ECG 09/27/2020 20:22:50 ST (T wave) deviation now present T-wave abnormality no longer present Electronically Signed On 06-10-2021 7:01:24 CDT by Radha Peterson M.D. [id number]
--- NOTE | 2021-06-09 09:39 | XR_ITS ---
WS: [id number] Exam: XR chest 1V portable [id number] Date/Time of Exam: 06/09/2021 9:43 AM Reason For Exam: dyspnea/cough Comparison 09/28/2020. The lungs are fully expanded and clear. The heart is enlarged but unchanged in size. No pleural effus ions. The mediastinum and osseous thorax are unremarkable. Probable rotator cuff arthropathy at the l t shoulder. XR/XR chest 1V portable [id number] IMPRESSION: 1. No acute cardiopulmonary finding. 2. Cardiac enlargement unchanged.
--- NOTE | 2021-06-09 09:45 | W.ED.EXTPRO ---
HPI - Extremity Problem General: Chief complaint: Extremity Problem,Nontraumatic Stated complaint: HYDRATION P/DR BARKLEY:ADMIT FOR SURGERY 06.10.21 Time Seen by Provider: 06/09/21 08:54 History of Present Illness: HPI Narrative: 66-year-old male presents emergency room at the request of podiatry. Patient is being treated as an outpatient for cellulitis and osteomyelitis of his right second and third toes. He has been following with Dr. Barkley there is known osteomyelitis present. Is failing various outpatient treatment including oral antibiotics. Is advised yesterday to present to the emergency room with complaint of establishing a PICC line further surgical debridement and initiation of long-term IV IV antibiotics as an outpatient. He arrives today complaining of continued drainage from the toes. He has not had any fever sweats or chills. Old records reviewed. Patient is on apixaban due to atrial fibrillation. He is also diabetic he has end-stage renal disease and is on peritoneal dialysis for the last 4 years. He previously had a PICC line in August 2020 for osteomyelitis and then as well. He also has a watchman left atrial appendage. MD Complaint: joint swelling Onset (ago): month(s) Location: right Quality: aching Radiation: none Relieving factors: nothing Exacerbating factors: nothing Associated symptoms: Reports arthralgias (Chronic unchanged); Deny chest pain, fever(s), myalgias or rash Review of Systems Const: Denies: fever(s) ENMT: Denies: throat pain, ear or mastoid pain, nasal discharge or nasal congestion Card: Denies: chest pain Resp: Denies: dyspnea, productive cough or non-productive cough GI: Denies: abdominal pain, nausea, vomiting, hematemesis, coffee ground emesis, diarrhea, constipation, bloating, hematochezia or melena : Denies: flank pain, dysuria, urinary frequency or urinary urgency Skin/Breast: Denies: rash or pruritus PFSH ED PFSH: Medical History Anemia Anemia Atrial fibrillation with RVR Atrial fibrillation, chronic Diabetes Diabetic neuropathy Elevated troponin End stage renal disease -on peritoneal dialysis Gout Hx of blood clots Hypertension Hypothyroidism Morbid obesity Surgical History Postoperative state Presence of Watchman left atrial appendage closure device S/P PICC central line placement aug 16 2020 Family History Other Family history non-contributory Social History Alcohol intake: never Housing: House Physical Exam Const: COMMON NORMALS: no acute distress GENERAL APPEARANCE: cooperative and comfortable ORIENTATION/CONSCIOUSNESS: Yes awake, Yes oriented to person, Yes oriented to place and Yes oriented to time HENMT: COMMON NORMALS: normocephalic, atraumatic and hearing grossly normal bilaterally HEAD & SCALP: normocephalic and atraumatic Neck/C-Spine: COMMON NORMALS: no JVD Lymph: LYMPHATIC: no lymphadenopathy noted and no lymphedema noted Resp: COMMON NORMALS: normal respiratory effort, No retractions, No use of accessory muscles and clear to auscultation bilaterally AUSCULTATION: clear to auscultation bilaterally Cardio: COMMON NORMALS: no JVD, regular rate, regular rhythm and No murmurs present (Cardio) RATE: regular rate RHYTHM: regular rhythm GI: COMMON NORMALS: Soft to palpation and No hepatosplenomegaly present AUSCULTATION: Yes normoactive bowel sounds PALPATION: Yes Soft to palpation, No Tenderness to palpation present (GI), No Guarding due to palpation present (GI) and Yes No hepatosplenomegaly present Extremity: OTHER: Right second and third toe other significant loss of the length of the toe with open wound at the tip there is an open tunneled wound to the bone on the tip of the third toe on the right foot as well both of mucousy active foul-smelling drainage. Neuro: SENSORIUM/ORIENTATION: Yes oriented to person, Yes oriented to place and Yes oriented to time Course Vital Signs: Vital signs: Vital Signs Temperature 98.6 F 06/09/21 08:59 Pulse Rate 82 06/09/21 08:59 Respiratory Rate 18 06/09/21 08:59 Blood Pressure 148/88 06/09/21 08:59 Pulse Oximetry 95 06/09/21 08:59 MDM - Extremity (Nontraumatic) MDM Narrative: Medical decision making narrative: Discussed with Dr. Barkley as well as Dr. Cobb. Patient has had trouble previously with vascular access and had picklines that cause significant problems with thrombosis. Additionally he has significant renal disease his creatinine is trending up although is not hyperkalemic. Organ to go ahead and admit the patient Dr. Cobb is seen the patient in the department of discussed Dr. Barkley explained taken to surgery tomorrow. Orders are written. Lab Data: Labs: Lab Results 06/09/21 06/09/21 10:30 10:30 WBC 12.1 10^3/uL H 10 ^3/uL (4.0-10.0) RBC 2.96 10^6/uL L 10 ^6/uL (4.1-5.3) Hgb 9.0 g/dL L g/dL (11.7-16.6) Hct 28.6 % L % (42.0-52.0) MCV 96.6 fl H fl (80-94) MCH 30.4 pg pg (28.0-34.0) MCHC 31.5 g/dL g/dL (30.0-36.0) RDW 14.6 % % (12.1-15.1) Plt Count 159 10^3/cmm 10^3 /cmm (130-400) MPV 10.4 fL fL (7.4-10.4) Neut % (Auto) 78.4 % % Lymph % (Auto) 6.6 % % Mckinley % (Auto) 11.4 % % Eos % (Auto) 2.5 % % Baso % (Auto) 0.3 % % Neut # (Auto) 9.48 10^3/uL H 10 ^3/uL (1.8-7.7) Lymph # (Auto) 0.8 10^3/uL 10^3/ uL (0.8-4.8) Mckinley # (Auto) 1.4 10^3/uL H 10^ 3/uL (0.2-0.9) Eos # (Auto) 0.3 10^3/uL 10^3/ uL (0.0-0.8) Baso # (Auto) 0.0 10^3/uL 10^3/ uL (0.0-0.1) Nucleated RBC % (a uto) 0 % % Nucleated RBCs # 0.0 /100WBC /100W BC Sodium 133 mmol/L L mmol /L (136-145) Potassium 3.2 mmol/L L mmol /L (3.5-5.1) Chloride 96 mmol/L L mmol/ L (98-107) Carbon Dioxide 22 mmol/L mmol/L (22-29) Anion Gap 18.2 (5-19) BUN 65 mg/dL H mg/dL (8-23) Creatinine 6.5 mg/dL H* mg/d L (0.7-1.2) GFR Calculation 8.6 mL/min L mL/m in (90-130) Glucose 128 mg/dL H mg/dL (65-115) Calculated Osmolal ity 296 mOsm/kg H mOs m/kg (285-295) Calcium 8.2 mg/dL L mg/dL (8.5-10.5) Total Bilirubin 0.3 mg/dL mg/dL (0.15-1.2) AST 13 U/L U/L (0-40) ALT 21 U/L U/L (0-41) Alkaline Phosphata se 115 IU/L IU/L (40-130) C-Reactive Protein 75.8 mg/L H mg/L (0.0-4.9) Total Protein 5.7 g/dL L g/dL (6.6-8.7) Albumin 2.9 g/dL L g/dL (3.5-5.2) Globulin 2.8 g/dL g/dL (1.3-4.6) Discharge Plan Discharge Patient Disposition: Admitted As Inpatient Clinical Impression: Diabetic foot ulcer associated with type 2 diabetes mellitus, Gangrene associated with type 2 diabetes mellitus, Osteomyelitis, 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
[2021-06-09] MEDS: sodium chloride 0.9% 1,000 ML 999 ML IV (10:20)
[2021-06-09 10:45] LABS: Basophils % 0.3 %; Eosinophils # 0.3 10^3/uL (0.0-0.8); Eosinophils % 2.5 %; Hematocrit 28.6 % (42.0-52.0); Lymphocytes # 0.8 10^3/uL (0.8-4.8); Lymphocytes % 6.6 %; Mean Corpuscular HGB Conc 31.5 g/dL (30.0-36.0); Mean Corpuscular Hemoglobin 30.4 pg (28.0-34.0); Mean Corpuscular Volume 96.6 fl (80-94); Mean Platelet Volume 10.4 fL (7.4-10.4); Monocytes # 1.4 10^3/uL (0.2-0.9); Monocytes % 11.4 %; Neutrophils # 9.48 10^3/uL (1.8-7.7); Neutrophils % 78.4 %; Nucleated Red Blood Cells % 0 %; Platelet Count 159 10^3/cmm (130-400); Red Blood Count 2.96 10^6/uL (4.1-5.3); Red Cell Distribution Width 14.6 % (12.1-15.1); White Blood Count 12.1 10^3/uL (4.0-10.0)
[2021-06-09 11:02] LABS: Alanine Aminotransferase 21 U/L (0-41); Albumin Level 2.9 g/dL (3.5-5.2); Alkaline Phosphatase 115 IU/L (40-130); Anion Gap 18.2 (5-19); Aspartate Amino Transferase 13 U/L (0-40); Blood Urea Nitrogen 65 mg/dL (8-23); C Reactive Protein 75.8 mg/L (0.0-4.9); Calcium 8.2 mg/dL (8.5-10.5); Carbon Dioxide 22 mmol/L (22-29); Chloride 96 mmol/L (98-107); Globulin 2.8 g/dL (1.3-4.6); Glomerular Filtration Rate 8.6 mL/min (90-130); Glucose 128 mg/dL (65-115); Osmolality Calculated 296 mOsm/kg (285-295); Potassium 3.2 mmol/L (3.5-5.1); Sodium 133 mmol/L (136-145); Total Bilirubin 0.3 mg/dL (0.15-1.2); Total Protein 5.7 g/dL (6.6-8.7)
--- NOTE | 2021-06-09 11:02 | PC.PHAR ---
PT STATES HE TAKES CARE OF HIS OWN MEDICATIONS-PT STATES HE HASNT TAKEN ATORVASTATIN IN A MONTH EXT MED HISTORY SHOWS LAST FILLED ON 03/28/21 15D/S-PT STATES HE HASNT TAKEN ELIQUIS FOR 2 MONTHS-PT SATES HE TAKES ZEMPLAR 1MCG FIVE TIMES A WEEK-EXT MED HISTORY SHOWS LAST FILLED ON 05/17/21 28D/S FOR 1MCG FOUR TIMES A WEEK-NOTES ARE MADE IN THE PHARMACY COMMENTS-PT STATES HE FINISHED THE AUGMENTIN 500-125MG EXT MED HISTORY SHOWS LAST FILLED ON 05/30/21 7D/S
--- NOTE | 2021-06-09 12:16 | P.HP_ITS ---
Providers/Chief Complaint Primary Care Provider: Anmol Santiago Chief Complaint: HYDRATION P/DR BARKLEY:ADMIT FOR SURGERY 06.10.21 History of Present Illness Levi Bonilla is a 66 year old male directed to go to the emergency department b y podiatry for chronic right foot infection with need for amputation. Patient reports he has been dealing with this for at least a month, having outpatient debridements, and taking oral antibiotics with no improvement in his condition. He denies any fever. He reports previous diabetic foot infections requiring a PICC line. He has been seen at wound care as well. Infectious disease saw him last in December. Complications prior to that included a right IJ DVT, septic thrombophlebitis associated with a PICC line placement. He received anticoagulation following this, and from what he can tell me a left jugular PICC line was placed for treatment as he could not have a PICC line in his left arm secondary to an AV fistula. Review of Systems 2 General: Reports: 10 or more systems reviewed and unremarkable except in HPI and below Const: Denies: fever(s) or chills Eyes: Denies: change in vision ENMT: Denies: throat pain Card: Denies: chest pain Resp: Denies: dyspnea GI: Denies: abdominal pain, hematochezia or melena : Denies: flank pain Musc: Reports: extremity swelling; Denies: neck pain Skin/Breast: Denies: rash Neuro: Denies: headache(s) Psych: Denies: anxiety or depression Endo: Denies: polyuria Edmundo/Lymph: Denies: easy bruising All/Imm: Denies: urticaria Medications/Allergies Home Medications Medication Instructions Recorded Confirmed Last Taken Type allopurinol 300 mg PO QAM 08/11/20 06/09/21 06/09/21 07:30 History citalopram 20 mg PO BEDTIME 08/11/20 06/09/21 06/08/21 History clonidine HCl 0.1 mg PO BID 08/11/20 06/09/21 06/09/21 07:30 History cyclobenzaprine 5 mg PO Q8H PRN 08/11/20 06/09/21 09/26/20 History ergocalciferol (vitamin D2) 1,250 mcg PO Q7D 08/11/20 06/09/21 06/08/21 History losartan 100 mg PO BEDTIME 08/11/20 06/09/21 06/08/21 History pantoprazole 40 mg PO QAM 08/11/20 06/09/21 06/09/21 07:30 History paricalcitol [Zemplar] 1 mcg PO .FIVE TIMES A WEEK 08/11/20 06/09/21 06/09/21 07:30 History torsemide 100 mg PO QAM 08/11/20 06/09/21 06/09/21 07:30 History polysaccharide iron complex 150 mg PO BID 09/27/20 06/09/21 06/09/21 07:30 History [Ferrex 150] amlodipine 10 mg tablet 10 mg PO BEDTIME tab 10/14/20 06/09/21 06/08/21 History Auryxia 630 mg PO .WITH EACH MEAL 11/25/20 06/09/21 06/08/21 History glipizide 5 mg PO QAM 11/26/20 06/09/21 06/09/21 07:30 History metoprolol tartrate 100 mg PO Q12H 11/26/20 06/09/21 06/09/21 07:30 History Cam Walker #1 ea NS 05/03/21 06/09/21 Unknown Rx doxycycline hyclate 100 mg capsule 100 mg PO BID 14 Days #28 cap 05/30/21 06/09/21 06/09/21 07:30 Rx Fish Oil 1 cap PO BID 06/09/21 06/09/21 06/09/21 07:30 History Renal Factor Plus 1 tab PO DAILY 06/09/21 06/09/21 Unknown History aspirin [Aspir-81] 81 mg PO BEDTIME 06/09/21 06/09/21 06/08/21 History levothyroxine 175 mcg PO QAM 06/09/21 06/09/21 06/09/21 History Allergies Allergy/AdvReac Type Severity Reaction Status Date / Time No Known Allergies Allergy Verified 06/09/21 11:01 PFSH Acute PFSH: Medical History (Updated 06/09/21 @ 12:57 by Chino Capellan MD) Anemia Anemia Atrial fibrillation with RVR Atrial fibrillation, chronic Diabetes Diabetic neuropathy Elevated troponin End stage renal disease -on peritoneal dialysis Gout Hx of blood clots Hypertension Hypothyroidism Morbid obesity Peripheral vascular disease Surgical History Postoperative state Presence of Watchman left atrial appendage closure device S/P PICC central line placement with subsequest removal with thrombophlebitis Family History (Updated 06/09/21 @ 12:26 by Chino Capellan MD) Other Cancer Family history non-contributory Social History (Updated 06/09/21 @ 12:26 by Chino Capellan MD) Smoking and tobacco status: never smoked Alcohol intake: never Housing: House Supplemental [facility] Information: Reports vascular surgery on the right lower extremity by Dr. Hayward in [place] to increase blood flow. Vitals/I&O/Wt Last Vital Signs Temp 98.6 F 06/09/21 08:59 Pulse 82 06/09/21 08:59 Resp 18 06/09/21 08:59 BP 148/88 06/09/21 08:59 Pulse Ox 95 06/09/21 08:59 Weight last 48 hrs Weight 142.882 kg Physical Exam Narrative: EXAM NARRATIVE: General exam no distress HEENT: Atraumatic normocephalic. Oropharynx clear Neck is supple Cardiovascular regular rate and rhythm, no murmur Lungs clear no wheezing or crackles Abdomen obese soft nontender positive bowel sounds with no obvious organomegaly. Peritoneal dialysis catheter noted. exam is deferred Extremities show trace bilateral edema. Right lower extremity with second toe with partial amputation with some surrounding erythema and edema and significant ulceration to the third toe as well. Refill is present but not normal. Skin see above Neuro no focal deficits Data : 06/09/21 10:30 06/09/21 10:30 Micro: Microbiology 06/09/21 10:30 Blood Culture - Preliminary Blood SPECIMEN COLLECTED 06/09/21 10:13 Blood Culture - Preliminary Blood SPECIMEN COLLECTED Other data: Last wound cultures demonstrated Enterobacter, Enterococcus, staph aureus, Finegoldia, Bacteroides Chest x-ray demonstrates cardiomegaly with no infiltrate Foot x-ray demonstrates partial amputation second digit, bony sclerosis and degenerative changes suggesting Charcot's, vascular calcifications, air in the distal soft tissues. LFTs are normal A&P Assessment and plan (1) Non-pressure chronic ulcer of other part of right foot with necrosis of bone: Patient with chronic diabetic foot ulcer of involving right second toe and part of distal right third toe. Significant cellulitis is present as well. Air is noted in the soft tissues. White blood cell count is elevated Initiate Rocephin, linezolid based on last cultures Podiatry consult Wound care per podiatry Check sedimentation rate, CRP Blood culture From my understanding is peripheral vascular disease has been addressed as much as it can in [place] by Dr. Hayward. Podiatry had indicated possible PICC line for extended IV antibiotic treatment. He has had significant complication with PICC line in the past and has limited vascular access. Will discuss with our PICC line services our options. Status: Acute (2) ESRD (end stage renal disease): On peritoneal dialysis. Nephrology consultation to continue to provide the service. Status: Acute (3) DM type 2 (diabetes mellitus, type 2): Mild sliding scale insulin Status: Acute (4) Peripheral vascular disease: See notations above Status: Acute Additional A&P Information Multiple other medical problems as outlined in past medical history Full code Heparin for DVT prophylaxis Attestations Medical Necessity Statement*: Will need greater than 2 midnight stay for evaluation and treatment of diabetic foot ulcer with cellulitis Time Spent in Patient Care: Greater than 35 minutes Coding Level of Care Code Acute Assembler Crimper for Chg Fwd Diagnoses Non-pressure chronic ulcer of other part of right foot with necrosis of bone L97.514 ESRD (end stage renal disease) N18.6 DM type 2 (diabetes mellitus, type 2) E11.9 Peripheral vascular disease I73.9
[2021-06-09 13:18] LABS: Charge for UA Resulting for Rev
[2021-06-09 13:33] LABS: Add Urine Microscopic? YES; Bilirubin Urine Neg (Negative); Blood Urine Neg (Negative); Glucose Urine UA Trace (Normal); Ketones Urine Negative (Negative); Leukocyte Esterase Urine Negative (Negative); Nitrate Urine Negative (Negative); Protein Urine 2+ (Negative); Specific Gravity, Urine 1.015 (1.005-1.030); Squamous Epithelial Cell Urine 0-4 /hpf (0-5); Urine Appearance Clear (CLEAR); Urine Color Yellow (Yellow); Urobilinogen Urine Norm (Negative); WBC Urine 0-4 /hpf (0-5); pH Urine 5 (5-7)
[2021-06-09 13:34] LABS: Add Urine Culture? No; Bacteria Urine TRACE /hpf
[2021-06-09] MEDS: cefTRIAXone 2,000 MG in sodium chloride 0.9% (plus) 50 ML 100 MG IV (16:45)
[2021-06-09] MEDS: cloNIDine 0.1 mg Tablet PO (17:48)
[2021-06-09] MEDS: linezolid premix 600 MG/300 ML PREMIX 300 MG IV (17:49)
[2021-06-09] MEDS: Dianeal low Ca w/2.5% dex 2,000 mL Bag 2000 ML INTRAPERIT (19:14)
[2021-06-09 20:56] LABS: Glucose Point of Care 210 mg/dL (70-110)
[2021-06-09] MEDS: amlodipine 10 mg Tablet PO (21:07)
[2021-06-09] MEDS: losartan 50 mg Tablet 100 MG PO (21:07)
[2021-06-09] MEDS: citalopram 20 mg Tablet PO (21:08)
[2021-06-09] MEDS: aspirin 81 mg EC Tablet PO (21:08)
[2021-06-09] MEDS: metoprolol tartrate 50 mg Tablet 100 MG PO (21:08)
[2021-06-09] MEDS: heparin 5,000 unit/mL INJ 1 mL 5000 UNIT SUBCUT (21:09)
[2021-06-09] MEDS: ALPRAZolam 0.5 mg Tablet 0.25 MG PO (21:55)
[2021-06-10] VITALS (13 sets, daily range): BP systolic 93–130; BP diastolic 57–87; PULSE 61–78; RESP 14–20; TEMP 36.2–37.2; O2SAT 92–100
[2021-06-10] MEDS: Dianeal low Ca w/2.5% dex 2,000 mL Bag 2000 ML INTRAPERIT ×4 (00:23→17:29)
[2021-06-10] MEDS: linezolid premix 600 MG/300 ML PREMIX 300 MG IV ×2 (05:28→17:29)
[2021-06-10 06:00] LABS: Basophils % 0.4 %; Eosinophils # 0.3 10^3/uL (0.0-0.8); Eosinophils % 2.5 %; Hematocrit 30.1 % (42.0-52.0); Hemoglobin 9.3 g/dL (11.7-16.6); Lymphocytes # 0.7 10^3/uL (0.8-4.8); Lymphocytes % 6.3 %; Mean Corpuscular HGB Conc 30.9 g/dL (30.0-36.0); Mean Corpuscular Hemoglobin 30.1 pg (28.0-34.0); Mean Corpuscular Volume 97.4 fl (80-94); Mean Platelet Volume 10.7 fL (7.4-10.4); Monocytes # 1.1 10^3/uL (0.2-0.9); Monocytes % 10.1 %; Neutrophils # 8.95 10^3/uL (1.8-7.7); Nucleated Red Blood Cells % 0 %; Platelet Count 164 10^3/cmm (130-400); Red Blood Count 3.09 10^6/uL (4.1-5.3); Red Cell Distribution Width 14.4 % (12.1-15.1); White Blood Count 11.2 10^3/uL (4.0-10.0)
[2021-06-10 06:17] LABS: Alanine Aminotransferase 21 U/L (0-41); Albumin Level 2.7 g/dL (3.5-5.2); Alkaline Phosphatase 107 IU/L (40-130); Anion Gap 19.6 (5-19); Aspartate Amino Transferase 15 U/L (0-40); Blood Urea Nitrogen 66 mg/dL (8-23); Carbon Dioxide 22 mmol/L (22-29); Chloride 91 mmol/L (98-107); Globulin 3.8 g/dL (1.3-4.6); Glomerular Filtration Rate 7.2 mL/min (90-130); Glucose 158 mg/dL (65-115); Osmolality Calculated 290 mOsm/kg (285-295); Potassium 3.6 mmol/L (3.5-5.1); Sodium 129 mmol/L (136-145); Total Bilirubin 0.3 mg/dL (0.15-1.2); Total Protein 6.5 g/dL (6.6-8.7)
[2021-06-10 06:25] LABS: Glucose Point of Care 210 mg/dL (70-110)
--- NOTE | 2021-06-10 06:48 | P.HP_ITS ---
Providers/Chief Complaint Primary Care Provider: Anmol Santiago Chief Complaint: HYDRATION P/DR BARKLEY:ADMIT FOR SURGERY 06.10.21 History of Present Illness Levi Bonilla is a 66 year old male he is evaluated preoperatively for right tra nsmetatarsal amputation secondary to gangrene and osteomyelitis right foot. Patient has been n.p.o. since midnight, Covid screen pending. Patient denies any subjective nausea, vomiting, fever, chills, shortness of breath or chest pain. Review of Systems General: Reports: 10 or more systems reviewed and unremarkable except in HPI and below Const: Denies: fever(s) or chills Card: Denies: chest pain or palpitations Resp: Denies: productive cough GI: Denies: abdominal pain, nausea or vomiting : Denies: flank pain Musc: Reports: extremity swelling, joint pain, joint stiffness, limited range of motion and deformity Skin/Breast: Reports: erythema, sores, nail changes and change in hair; Denies: rash Neuro: Reports: numbness in extremities, sensory changes and difficulty walking Psych: Denies: suicidal ideation Edmundo/Lymph: Denies: easy bruising Medications/Allergies Home Medications Medication Instructions Recorded Confirmed Last Taken Type allopurinol 300 mg PO QAM 08/11/20 06/09/21 06/09/21 07:30 History citalopram 20 mg PO BEDTIME 08/11/20 06/09/21 06/08/21 History clonidine HCl 0.1 mg PO BID 08/11/20 06/09/21 06/09/21 07:30 History cyclobenzaprine 5 mg PO Q8H PRN 08/11/20 06/09/21 09/26/20 History ergocalciferol (vitamin D2) 1,250 mcg PO Q7D 08/11/20 06/09/21 06/08/21 History losartan 100 mg PO BEDTIME 08/11/20 06/09/21 06/08/21 History pantoprazole 40 mg PO QAM 08/11/20 06/09/21 06/09/21 07:30 History paricalcitol [Zemplar] 1 mcg PO .FIVE TIMES A WEEK 08/11/20 06/09/21 06/09/21 07:30 History torsemide 100 mg PO QAM 08/11/20 06/09/21 06/09/21 07:30 History polysaccharide iron complex 150 mg PO BID 09/27/20 06/09/21 06/09/21 07:30 History [Ferrex 150] amlodipine 10 mg tablet 10 mg PO BEDTIME tab 10/14/20 06/09/21 06/08/21 History Auryxia 630 mg PO .WITH EACH MEAL 11/25/20 06/09/21 06/08/21 History glipizide 5 mg PO QAM 11/26/20 06/09/21 06/09/21 07:30 History metoprolol tartrate 100 mg PO Q12H 11/26/20 06/09/21 06/09/21 07:30 History Cam Walker #1 ea NS 05/03/21 06/09/21 Unknown Rx doxycycline hyclate 100 mg capsule 100 mg PO BID 14 Days #28 cap 05/30/21 06/09/21 06/09/21 07:30 Rx Fish Oil 1 cap PO BID 06/09/21 06/09/21 06/09/21 07:30 History Renal Factor Plus 1 tab PO DAILY 06/09/21 06/09/21 Unknown History aspirin [Aspir-81] 81 mg PO BEDTIME 06/09/21 06/09/21 06/08/21 History levothyroxine 175 mcg PO QAM 06/09/21 06/09/21 06/09/21 History Allergies Allergy/AdvReac Type Severity Reaction Status Date / Time No Known Allergies Allergy Verified 06/09/21 11:01 PFSH PFSH: Medical History (Updated 06/09/21 @ 12:57 by Chino Capellan MD) Anemia Anemia Atrial fibrillation with RVR Atrial fibrillation, chronic Diabetes Diabetic neuropathy Elevated troponin End stage renal disease -on peritoneal dialysis Gout Hx of blood clots Hypertension Hypothyroidism Morbid obesity Peripheral vascular disease Surgical History Postoperative state Presence of Watchman left atrial appendage closure device S/P PICC central line placement with subsequest removal with thrombophlebitis Family History (Updated 06/09/21 @ 12:26 by Chino Capellan MD) Other Cancer Family history non-contributory Social History (Updated 06/09/21 @ 12:26 by Chino Capellan MD) Smoking and tobacco status: never smoked Alcohol intake: never Housing: House Vital Signs Vitals Signs: Last Vital Signs Temp 98.4 F 06/10/21 04:00 Pulse 61 06/10/21 04:00 Resp 17 06/10/21 04:00 BP 121/74 06/10/21 04:00 Pulse Ox 92 06/10/21 04:00 Weight: Weight last 48 hrs Weight 315 lb Weight 315 lb Physical Exam Narrative: EXAM NARRATIVE: Patient is alert and oriented ?3 and in no acute distress. The following is a focused bilateral lower extremity exam. VASCULAR: Dorsalis pedis and posterior tibial arteries palpable +1 bilaterally. Weak biphasic PT and DP pulses at the right foot. Capillary refill time less than 5 seconds to the distal hallux bilaterally. Calf is supple and nontender proximally and distally. Diminished hair growth at legs and feet bilaterally, no hair growth appreciated to the level to dorsal toes. +1 pitting edema to the lower extremities. Palpable +1 popliteal artery bilaterally. NEUROLOGICAL: Protective sensation intact 0/10 sites, tested with [place] Sergei monofilament to bilateral feet. DERMATOLOGICAL: Wound probes to bone at the distal tip of the right second and third toe with localized erythema. Erythema less intense than last evaluation. Post wound debridement measurements 2.0 cm x 1.6 cm x 0.3 cm right second toe and 1.0 cm x 1.0 cm x 0.2 cm with stable eschar not exposed bone at this time no purulence expressed. MUSCULOSKELETAL: Muscle strength is 5 out of 5 in all 3 cardinal planes to bilateral foot and ankle. Pes planus foot type bilaterally. Ankle joint dorsiflexion is to neutral bilaterally. Reducible hammertoe deformities 2 through 5 bilaterally. Mild hallux abductovalgus deformity bilaterally, hallux is not track bound. Data Micro: Micro: Microbiology 06/09/21 10:30 Blood Culture - Pr eliminary Blood SPECIMEN [facility] JAY JAY 06/09/21 10:13 Blood Culture - Pr eliminary Blood SPECIMEN [facility] A&P Assessment and plan (1) Peripheral vascular disease: Status: Acute (2) Non-pressure chronic ulcer of other part of right foot with necrosis of bone: Status: Acute (3) Diabetic peripheral neuropathy associated with type 2 diabetes mellitus: Status: Acute (4) Gangrene associated with type 2 diabetes mellitus: Status: Acute (5) ESRD (end stage renal disease): Status: Acute 66-year-old male with gangrene, end-stage renal disease, diabetes mellitus type 2 with peripheral polyneuropathy, history of osteomyelitis, has an acute gangrenous right second and third toe. I am recommending transmetatarsal amputation patient is agreeable. Patient is n.p.o. since midnight, Covid screening pending. Risks include pain, bleeding, numbness, persistent infection, need for antibiotic therapies, wound care therapies, offloading modalities, additional surgical debridement and ultimately risk for loss of limb including below-knee amputation. Risk for delayed healing, nonhealing, surgical site dehiscence, altered mechanics need for bracing and toe filler. Patient is agreeable wishes to proceed. Coding Level of Care Code Acute [employer] for Breanna Aguero Diagnoses Peripheral vascular disease I73.9 Non-pressure chronic ulcer of other part of right foot with necrosis of bone L97.514 Diabetic peripheral neuropathy associated with type 2 diabetes mellitus E11.42 Gangrene associated with type 2 diabetes mellitus E11.52 ESRD (end stage renal disease) N18.6
--- NOTE | 2021-06-10 07:43 | P.ANESASSM_ITS ---
Pre-Anesthetic Assessment Pre-Anesthetic Assessment: Height/Weight: Height 1.83 m Weight 142.882 kg Temp Pulse Resp BP Pulse Ox 98.4 F 61 17 121/74 92 06/10/21 04:00 06/10/21 04:00 06/10/21 04:00 06/10/21 04:00 06/10/21 04:00 Preop Diagnosis: Severe peripheral vascular disease, critical limb ischemia, right foot toe Proposed Procedure: Operation Date: 06/10/21 08:35 Proposed Procedures p Incision And Drainage right foot(Right) - Frankie Woodall DPM Familial anesthetic complications: > 8 hrs Was Beta Jayne taken within 24 hours: Yes Was Clonidine taken within 24 hours: N/A Last intake: Intake Last Liquid Date 06/09/21 Last Liquid Time 23:59 Last Solid Date 06/09/21 Last Solid Time 17:30 Social: Social History: No alcohol and No tobacco Exam: Pre-Anes Outpt Exam: alert, oriented x 3, clear to auscultation bilaterally and regular rate & rhythm (irregular) Airway: Cervical ROM: WNL MP: 4 Additional comments: mising Pulmonary: Pulmonary: Sleep apnea CV/HEM: CV/HEM: Afib, Anemia, HTN and PVD Comments: Echo 09/30 CONCLUSIONS 1. Normal left ventricular cavity size and systolic function. Left ventricular ejection fraction is estimated at 55-60 %. No diagnostic regional wall motion abnormality. 2. Probably normal right ventricle systolic function. 3. Right atrial pressure estimated at 15 mmHg. 4. Pulmonary artery pressure estimated at 37 mmHg. 5. No evidence of valvular vegetation based on the study. However given technically difficult study, CARYN is recommended if clinically indicated. : : Chronic renal failure Comments: peritoneal dialysis - last received this morning Metabolic: Metabolic: DM Anesthetic Plan: ASA status: 4 Anesthesia: General Meds/Allergies Current Medications: Current Medications Generic Name Dose Route Start Last Admin Trade Name Freq PRN Reason Stop Dose Admin Amlodipine Besylat e 10 mg 06/09/21 21:00 06/09/21 21:07 Amlodipine 10 Mg Tablet PO 10 mg BEDTIME MARIANELA Administration Aspirin 81 mg 06/09/21 21:00 06/09/21 21:08 Aspirin 81 Mg Ec Tablet PO 81 mg BEDTIME MARIANELA Administration Citalopram Hydrobr omide 20 mg 06/09/21 21:00 06/09/21 21:08 Citalopram 20 Mg Tablet PO 20 mg BEDTIME MARIANELA Administration Clonidine HCl 0.1 mg 06/09/21 18:00 06/09/21 17:48 Clonidine 0.1 Mg Tablet PO 0.1 mg BID MARIANELA Administration Heparin Sodium (Be ef Lung) 5,000 unit 06/09/21 20:00 06/09/21 21:09 Heparin 5,000 Un it/Ml Inj 1 Ml SUBCUT 5,000 unit Q12H MARIANELA Administration Ceftriaxone Sodium 2,000 mg/ 50 mls @ 100 mls/ hr 06/09/21 16:30 06/09/21 17:37 Sodium Chloride IV Infused Q24H MARIANELA Infusion Protocol Linezolid 600 mg in 300 mls @ 300 mls/hr 06/09/21 17:00 06/10/21 06:31 Zyvox Premix IV Infused Q12H MARIANELA Infusion Protocol Insulin Aspart 0 unit 06/09/21 18:00 06/09/21 21:09 Insulin Aspart 1 00 Unit/1 Ml SUBCUT 4 unit WM&BEDTIME MARIANELA Administration Protocol Losartan Potassium 100 mg 06/09/21 21:00 06/09/21 21:07 Losartan 50 Mg T ablet PO 100 mg BEDTIME MARIANELA Administration Metoprolol Tartrat e 100 mg 06/09/21 21:00 06/09/21 21:08 Metoprolol Tartr ate 50 Mg Tablet PO 100 mg Q12H MARIANELA Administration Peritoneal Dialysi s Solution 2,000 ml 06/09/21 14:00 06/10/21 05:29 Dianeal Low Ca W /2.5% Dex 2,000 Ml Bag INTRAPERIT 2,000 ml 5XD MARIANELA Administration PFSH Anesthesia PFSH: Medical History (Updated 06/09/21 @ 12:57 by Chino Capellan MD) Anemia Anemia Atrial fibrillation with RVR Atrial fibrillation, chronic Diabetes Diabetic neuropathy Elevated troponin End stage renal disease -on peritoneal dialysis Gout Hx of blood clots Hypertension Hypothyroidism Morbid obesity Peripheral vascular disease Surgical History Postoperative state Presence of Watchman left atrial appendage closure device S/P PICC central line placement with subsequest removal with thrombophlebitis Family History (Updated 06/09/21 @ 12:26 by Chino Capellan MD) Other Cancer Family history non-contributory Social History (Updated 06/09/21 @ 12:26 by Chino Capellan MD) Smoking and tobacco status: never smoked Alcohol intake: never Housing: House Supplemental [facility] Information: Reports vascular surgery on the right lower extremity by Dr. Hayward in [place] to increase blood flow. Data Anesthesia CBC & Chem 7: 06/10/21 05:20 06/10/21 05:20 Other Labs: Laboratory Results - last 48 hr 06/09/21 06/09/21 06/09/21 10:30 10:30 13:00 WBC 12.1 H RBC 2.96 L Hgb 9.0 L Hct 28.6 L MCV 96.6 H MCH 30.4 MCHC 31.5 RDW 14.6 Plt Count 159 MPV 10.4 Neut % (Auto) 78.4 Lymph % (Auto) 6.6 [place] % (Auto) 11.4 Eos % (Auto) 2.5 Baso % (Auto) 0.3 Neut # (Auto) 9.48 H Lymph # (Auto) 0.8 [place]cock # (Auto) 1.4 H Eos # (Auto) 0.3 Baso # (Auto) 0.0 Nucleated RBC % (auto) 0 Nucleated RBCs # 0.0 Sodium 133 L Potassium 3.2 L Chloride 96 L Carbon Dioxide 22 Anion Gap 18.2 BUN 65 H Creatinine 6.5 H* GFR Calculation 8.6 L Glucose 128 H POC Glucose Calculated Osmolality 296 H Calcium 8.2 L Total Bilirubin 0.3 AST 13 ALT 21 Alkaline Phosphatase 115 C-Reactive Protein 75.8 H Total Protein 5.7 L Albumin 2.9 L Globulin 2.8 Urine Color Yellow Urine Appearance Clear Urine pH 5 Ur Specific [place] 1.015 Urine Protein 2+ H Urine Glucose (UA) Trace H Urine Ketones Negative Urine Blood Neg Urine Nitrate Negative Urine Bilirubin Neg Urine Urobilinogen Norm Ur Leukocyte Esterase Negative Urine RBC Not Reportable Urine WBC 0-4 H Ur Squamous Epith Cells 0-4 H Amorphous Sediment Not Reportable Urine Bacteria Trace 06/09/21 06/10/21 06/10/21 20:36 05:20 05:20 WBC 11.2 H RBC 3.09 L Hgb 9.3 L Hct 30.1 L MCV 97.4 H MCH 30.1 MCHC 30.9 RDW 14.4 Plt Count 164 MPV 10.7 H Neut % (Auto) 80.0 Lymph % (Auto) 6.3 [place] % (Auto) 10.1 Eos % (Auto) 2.5 Baso % (Auto) 0.4 Neut # (Auto) 8.95 H Lymph # (Auto) 0.7 L [place] # (Auto) 1.1 H Eos # (Auto) 0.3 Baso # (Auto) 0.0 Nucleated RBC % (auto) 0 Nucleated RBCs # 0.0 Sodium 129 L Potassium 3.6 Chloride 91 L Carbon Dioxide 22 Anion Gap 19.6 H BUN 66 H Creatinine 7.6 H* GFR Calculation 7.2 L Glucose 158 H POC Glucose 210 H Calculated Osmolality 290 Calcium 9.0 Total Bilirubin 0.3 AST 15 ALT 21 Alkaline Phosphatase 107 C-Reactive Protein Total Protein 6.5 L Albumin 2.7 L Globulin 3.8 Urine Color Urine Appearance Urine pH Ur Specific [place] Urine Protein Urine Glucose (UA) Urine Ketones Urine Blood Urine Nitrate Urine Bilirubin Urine Urobilinogen Ur Leukocyte Esterase Urine RBC Urine WBC Ur Squamous Epith Cells Amorphous Sediment Urine Bacteria 06/10/21 06:21 WBC RBC Hgb Hct MCV MCH MCHC RDW Plt Count MPV Neut % (Auto) Lymph % (Auto) [place] % (Auto) Eos % (Auto) Baso % (Auto) Neut # (Auto) Lymph # (Auto) [place] # (Auto) Eos # (Auto) Baso # (Auto) Nucleated RBC % (auto) Nucleated RBCs # Sodium Potassium Chloride Carbon Dioxide Anion Gap BUN Creatinine GFR Calculation Glucose POC Glucose 210 H Calculated Osmolality Calcium Total Bilirubin AST ALT Alkaline Phosphatase C-Reactive Protein Total Protein Albumin Globulin Urine Color Urine Appearance Urine pH Ur Specific [place] Urine Protein Urine Glucose (UA) Urine Ketones Urine Blood Urine Nitrate Urine Bilirubin Urine Urobilinogen Ur Leukocyte Esterase Urine RBC Urine WBC Ur Squamous Epith Cells Amorphous Sediment Urine Bacteria Micro: Microbiology 06/09/21 10:30 Blood Culture - Preliminary Blood SPECIMEN COLLECTED 06/09/21 10:13 Blood Culture - Preliminary Blood SPECIMEN COLLECTED Cardiac Studies: No Data to Display
[2021-06-10 08:07] LABS: Glucose Point of Care 228 mg/dL (70-110)
[2021-06-10] MEDS: sodium chloride 0.9% 1,000 ML 30 ML IV (08:07)
--- NOTE | 2021-06-10 08:57 | P.HPUD_ITS ---
Surgery/Procedure H&P Update DATE OF PROCEDURE: June 10, 2021 DATE H&P PERFORMED: 11/24/20 H&P UPDATE INFORMATION: I have reviewed H&P completed within last 30 days, I have examined patient prior to procedure, No changes to prior documentation and H[place] is [place] [facility] [place] date indicated PREOP DIAGNOSIS: Severe peripheral vascular disease, critical limb ischemia, right foot toe PLANNED PROCEDURE: Operation Date: 06/10/21 08:35 Proposed Procedures p transmetatarsal amputation right foot (Right) - Frankie Woodall DPM
[2021-06-10] MEDS: midazolam 1 mg/mL INJ 2 mL 2 MG IVP (09:05)
[2021-06-10] MEDS: lidocaine 1% INJ 20 mL INJECTION (09:20)
--- NOTE | 2021-06-10 10:01 | SUR.PHASEI ---
PT AWAKE ALERT ON 3LNC NOW FOR COMFORT, PT VERBALIZED NO PAIN OR NAUSEA VSS IV CLAMPED DR NOYOLA AND DR BARKLEY AT BEDSIDE.FEET ELEVATED PER BED RT TOE IN LARGE BUNDLED DRESSING D/I
--- NOTE | 2021-06-10 10:05 | SUR.PHASEI ---
PT VSS MONITOR AFIB UNCHANGED FROM PRE SURGERY PER Luana MERCADO CRNA. NO ECTOPY NOTED PT DOZES BUT EASILY AWAKES AND VERBALIZED APPROP ORIENTED X 2
--- NOTE | 2021-06-10 10:07 | PM.PN ---
Subjective Subjective: Interval history: Levi is directly postoperative. He was sleepy but reports pain is under control. Medications: Reviewed: Yes Vitals/I&O/Wt Last Vital Signs Temp 99 F 06/10/21 09:53 Pulse 68 06/10/21 10:00 Resp 19 H 06/10/21 10:00 BP 115/58 06/10/21 10:00 Pulse Ox 96 06/10/21 10:00 06/09/21 06/10/21 06/10/21 22:59 06:59 14:59 Intake Total 1350 / 1350 500 / 1850 500 / 500 Output Total Balance 1350 / 1350 500 / 1850 490 / 490 Weight last 48 hrs Weight 142.882 kg Weight 142.882 kg Physical Exam Narrative: EXAM NARRATIVE: General exam no distress Neck is supple Cardiovascular regular rate and rhythm, no murmur Lungs clear no wheezing or crackles Abdomen obese soft nontender positive bowel sounds with no obvious organomegaly. Peritoneal dialysis catheter noted. Extremities show trace bilateral edema. Right lower extremity with large dressing, postoperative Data : 06/10/21 05:20 06/10/21 05:20 Micro: Microbiology 06/09/21 10:30 Blood Culture - Preliminary Blood SPECIMEN COLLECTED 06/09/21 10:13 Blood Culture - Preliminary Blood SPECIMEN COLLECTED A&P Assessment and plan (1) Non-pressure chronic ulcer of other part of right foot with necrosis of bone: Patient with chronic diabetic foot ulcer of involving right second toe and part of distal right third toe. Significant cellulitis is present as well. Air is noted in the soft tissues. White blood cell count is elevated Continue Rocephin, linezolid based on last cultures Appreciate podiatry consultation Plan on 2 weeks of Augmentin and Cipro at discharge. Discussed briefly with infectious disease. Will need to clarify whether patient will follow-up in [place] or here with infectious disease. From my understanding is peripheral vascular disease has been addressed as much as it can in [place] by Dr. Hayward. Will not need a PICC line at discharge based upon surgical result noted today. Await cultures from today. Plan is to finish closure from podiatry standpoint on Sunday. Likely home Sunday evening or Sunday Status: Acute (2) ESRD (end stage renal disease): On peritoneal dialysis. Nephrology consultation to continue to provide the service. Status: Acute (3) DM type 2 (diabetes mellitus, type 2): Mild sliding scale insulin Status: Acute (4) Peripheral vascular disease: See notations above Status: Acute Additional A&P Information Multiple other medical problems as outlined in past medical history Full code Heparin for DVT prophylaxis Attestations Medical Necessity Statement*: Needs continued hospitalization for IV antibiotics secondary to cellulitis following initiation of definitive surgery for right foot infection Coding Level of Care Code Acute [employer] for g Fwd Diagnoses Non-pressure chronic ulcer of other part of right foot with necrosis of bone L97.514 ESRD (end stage renal disease) N18.6 DM type 2 (diabetes mellitus, type 2) E11.9 Peripheral vascular disease I73.9
--- NOTE | 2021-06-10 10:09 | PM.CONSULT ---
Providers/Reason For Consult Consulting Physician/Specialty*: Day Hackett MD/Infectious Disease Reason for Consult*: Osteomyelitis right foot Attending Physician: Chino Capellan MD Primary Care Provider: Anmol Santiago History of Present Illness History of Present Illness Consult note per chart review and discussion with hospitalist. Levi Bonilla is a 66 year old male with mutliple comorbidities including CKD on PD, severe PAD s/p multiple attempted peripheral vascular interventions, peripheral neuropathy, HTN, DM, previously known to me from last outpatient ID encounter on 12/21. 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 Above course was complicated by Pseudomonas septicemia from PICC line associated septic thrombophlebitis of RIJ for which he received anticoagulation. He completed 6 weeks of po levofloxacin for the same based on susceptibility. As of 01/2021, per clinic and [facility] notes, his foot wound wound over right hallux was noted to be improving with local wound care and wound vac. peripheral angiogram and interventions were planned on the right leg, and given complexity of lesions he was referred Dr. Hayward at [facility] in [place]. It appears per [facility] notes that patient was placed back on iv ceftriaxone in January and February for an extended abx course via PICC line under care of Dr. Camacho from Infectious disease at [facility]. Records have been requested from this time to ascertain details. His wound over right hallux remains healed, however he has now developed new lesions over 2nd and third toes. 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 He has been following with podiatry since 05/03, has tried oral regimens of Cipro + clinda x 14 days and then augmentin and Doxycycline x 14 days. Additionally has undergone deep debridements in the office without any improvement and interval progressive worsening. Currently admitted for a transmetatarsal amputation secondary to gangrene and osteomyelitis right foot. Imaging studies as detailed below. Most recent office cx from debridement with polymicrobial growth with MSSA, Enterobacter cloacae, E. fecalis, Finegoldia and Bacteroides. Review of Systems General: Reports: Other Meds/Allergies Home Medications and Allergies Home Medications Medication Instructions Recorded Confirmed Last Taken Type allopurinol 300 mg PO QAM 08/11/20 06/09/21 06/09/21 07:30 History citalopram 20 mg PO BEDTIME 08/11/20 06/09/21 06/08/21 History clonidine HCl 0.1 mg PO BID 08/11/20 06/09/21 06/09/21 07:30 History cyclobenzaprine 5 mg PO Q8H PRN 08/11/20 06/09/21 09/26/20 History ergocalciferol (vitamin D2) 1,250 mcg PO Q7D 08/11/20 06/09/21 06/08/21 History losartan 100 mg PO BEDTIME 08/11/20 06/09/21 06/08/21 History pantoprazole 40 mg PO QAM 08/11/20 06/09/21 06/09/21 07:30 History paricalcitol [Zemplar] 1 mcg PO .FIVE TIMES A WEEK 08/11/20 06/09/21 06/09/21 07:30 History torsemide 100 mg PO QAM 08/11/20 06/09/21 06/09/21 07:30 History polysaccharide iron complex 150 mg PO BID 09/27/20 06/09/21 06/09/21 07:30 History [Ferrex 150] amlodipine 10 mg tablet 10 mg PO BEDTIME tab 10/14/20 06/09/21 06/08/21 History Auryxia 630 mg PO .WITH EACH MEAL 11/25/20 06/09/21 06/08/21 History glipizide 5 mg PO QAM 11/26/20 06/09/21 06/09/21 07:30 History metoprolol tartrate 100 mg PO Q12H 11/26/20 06/09/21 06/09/21 07:30 History Cam Walker #1 ea NS 05/03/21 06/09/21 Unknown Rx doxycycline hyclate 100 mg capsule 100 mg PO BID 14 Days #28 cap 05/30/21 06/09/21 06/09/21 07:30 Rx Fish Oil 1 cap PO BID 06/09/21 06/09/21 06/09/21 07:30 History Renal Factor Plus 1 tab PO DAILY 06/09/21 06/09/21 Unknown History aspirin [Aspir-81] 81 mg PO BEDTIME 06/09/21 06/09/21 06/08/21 History levothyroxine 175 mcg PO QAM 06/09/21 06/09/21 06/09/21 History Allergies Allergy/AdvReac Type Severity Reaction Status Date / Time No Known Allergies Allergy Verified 06/09/21 11:01 Current Medications Current Medications Generic Name Dose Route Start Last Admin Trade Name Betsey PRN Reason Stop Dose Admin Amlodipine Besylate 10 mg 06/09/21 21:00 06/09/21 21:07 Amlodipine 10 Mg Tablet PO 10 mg BEDTIME MARIANELA Administration Aspirin 81 mg 06/09/21 21:00 06/09/21 21:08 Aspirin 81 Mg Ec Tablet PO 81 mg BEDTIME MARIANELA Administration Citalopram Hydrobromide 20 mg 06/09/21 21:00 06/09/21 21:08 Citalopram 20 Mg Tablet PO 20 mg BEDTIME MARIANELA Administration Clonidine HCl 0.1 mg 06/09/21 18:00 06/09/21 17:48 Clonidine 0.1 Mg Tablet PO 0.1 mg BID MARIANELA Administration Heparin Sodium (Beef Lung) 5,000 unit 06/09/21 20:00 06/09/21 21:09 Heparin 5,000 Unit/Ml Inj 1 Ml SUBCUT 5,000 unit Q12H MARIANELA Administration Ceftriaxone Sodium 2,000 mg/ 50 mls @ 100 mls/hr 06/09/21 16:30 06/09/21 17:37 Sodium Chloride IV Infused Q24H MARIANELA Infusion Protocol Linezolid 600 mg in 300 mls @ 300 mls/hr 06/09/21 17:00 06/10/21 06:31 Zyvox Premix IV Infused Q12H MARIANELA Infusion Protocol Sodium Chloride 1,000 mls @ 30 mls/hr 06/10/21 07:45 06/10/21 08:07 Sodium Chloride 0.9% IV 06/11/21 07:44 30 mls/hr .Q24H MARIANELA Administration Insulin Aspart 0 unit 06/09/21 18:00 06/09/21 21:09 Insulin Aspart 100 Unit/1 Ml SUBCUT 4 unit WM&BEDTIME MARIANELA Administration Protocol Losartan Potassium 100 mg 06/09/21 21:00 06/09/21 21:07 Losartan 50 Mg Tablet PO 100 mg BEDTIME MARIANELA Administration Metoprolol Tartrate 100 mg 06/09/21 21:00 06/09/21 21:08 Metoprolol Tartrate 50 Mg Tablet PO 100 mg Q12H MARIANELA Administration Midazolam HCl 2 mg 06/10/21 07:42 06/10/21 09:05 Midazolam 1 Mg/Ml Inj 2 Ml IVP 2 mg Q5M PRN Administration Preop Anxiety Peritoneal Dialysis Solution 2,000 ml 06/09/21 14:00 06/10/21 05:29 Dianeal Low Ca W/2.5% Dex 2,000 Ml Bag INTRAPERIT 2,000 ml 5XD MARIANELA Administration PFSH Acute PFSH: Medical History Anemia Anemia Atrial fibrillation with RVR Atrial fibrillation, chronic Diabetes Diabetic neuropathy Elevated troponin End stage renal disease -on peritoneal dialysis Gout Hx of blood clots Hypertension Hypothyroidism Morbid obesity Peripheral vascular disease Surgical History Postoperative state Presence of Watchman left atrial appendage closure device S/P PICC central line placement with subsequest removal with thrombophlebitis Family History Other Cancer Family history non-contributory Social History Smoking and tobacco status: never smoked Alcohol intake: never Housing: House Vitals/I&O/Wt Last Vital Signs Temp 98.6 F 06/10/21 10:05 Pulse 63 06/10/21 10:05 Resp 20 H 06/10/21 10:05 BP 117/69 06/10/21 10:05 Pulse Ox 97 06/10/21 10:05 06/09/21 06/10/21 06/10/21 22:59 06:59 14:59 Intake Total 1350 / 1350 500 / 1850 505 / 505 Output Total Balance 1350 / 1350 500 / 1850 495 / 495 Weight last 48 hrs Weight 142.882 kg Weight 142.882 kg Physical Exam Narrative: EXAM NARRATIVE: Chart reviewed and care discussed with hospitalist. Patient not examined. Data Micro: Micro: Microbiology : Enterobacter cloacae : s/t CTX, cefepime, zosyn, FQs. E.fecalis - amp - S MSSA Finegoldia magna and bacteroides spp 06/09/21 10:30 Blood Culture - Pr eliminary Blood SPECIMEN [facility] JAY 06/09/21 10:13 Blood Culture - Pr eliminary Blood SPECIMEN [facility] A&P Assessment and plan (1) Osteomyelitis: Status: Acute Qualifiers: Osteomyelitis type: other chronic Osteomyelitis location: foot Laterality: right Qualified Code(s): M86.671 - Other chronic osteomyelitis, right ankle and foot (2) Gangrene associated with type 2 diabetes mellitus: Status: Acute (3) Peripheral vascular disease: Status: Acute (4) ESRD (end stage renal disease): Status: Acute (5) Charcot's arthropathy: Status: Acute Additional A&P Information Patient with recent pertinent history as noted above. Currently admitted for gangrene and osteomyelitis, planned for transmetatarsal amputation today. Outpatient cx from debridements with polymicrobial growth as noted above Assuming bone cx co relate with outpatient cultures, can likely use a combination of oral ciprofloxacin and Augmentin for ~ 2 weeks after amputation, once signs of adequate wound healing are noted. will follow bone margins from pathology, if clear margins, likely that oral therapy will be appropriate when nearing discharge. Currently on CTX and linezolid while inpatient, can consider piperacllin/tazobactam monotherapy alternately CRP added to am labs to establish baseline for outpatient monitoring will follow Consult Attestations Medical Necessity Statement: per hospitalist note Coding Level of Care Code Acute Valve Inserter for [facility] Diagnoses Osteomyelitis M86.671 Osteomyelitis type: other chronic Osteomyelitis location: foot Laterality: right Gangrene associated with type 2 diabetes mellitus E11.52 Peripheral vascular disease I73.9 ESRD (end stage renal disease) N18.6 Charcot's arthropathy M14.60
[2021-06-10 10:35] LABS: Erythrocyte Sedimentation Rate 96 mm/hr (0-10)
[2021-06-10 11:57] LABS: Glucose Point of Care 173 mg/dL (70-110)
[2021-06-10 12:06] LABS: C Reactive Protein 78.6 mg/L (0.0-4.9)
--- NOTE | 2021-06-10 12:19 | ANE.PACU2 ---
Inpatient post-anesthesia follow up: Airway intact: Yes Vital signs: Temperature 98.6 F Pulse Rate [Monito r] 82 Pulse Rate 77 Respiratory Rate 17 Blood Pressure [Le ft Arm] 148/88 Blood Pressure 130/87 Pulse Oximetry 96 Oxygen Delivery Me thod Nasal Cannula Oxygen Flow Rate 3 Fraction of Inspir ed Oxygen Hydration adequate: Yes Nausea and vomiting: No Pain level: 2 Mental status: Baseline
--- NOTE | 2021-06-10 13:10 | PM.PN ---
Subjective Subjective: Interval history: Levi is seen and examined on peritoneal dialysis today. Peritoneal dialysis is going well. At home he has a CCPD prescription 8hrs, 3 exchanges at [facility] 3L and 1 during the day (icodextran). He is now admitted with a nonhealing foot ulcer, osteomyelitis despite a lengthy, complicated management. Today he underwent transmetatarsal amputation of the foot. In the hospital I have been doing peritoneal dialysis, 2 L, 5 exchanges a day using the 2.5% solutions. In and outflow is comfortable. Effluent is clear. Apart from his the affected LE there is no other evidence of hypervolemia. No uremic Sx. Hemodynamics reviewed and remain stable. Vitals/I&O/Wt Last Vital Signs Temp 98.6 F 06/10/21 10:10 Pulse 77 06/10/21 10:10 Resp 17 06/10/21 10:10 BP 130/87 06/10/21 10:10 Pulse Ox 96 06/10/21 10:10 06/09/21 06/10/21 06/10/21 22:59 06:59 14:59 Intake Total 1350 / 1350 500 / 1850 505 / 505 Output Total Balance 1350 / 1350 500 / 1850 495 / 495 Weight last 48 hrs Weight 142.882 kg Weight 142.882 kg Physical Exam Narrative: EXAM NARRATIVE: Constitutional: Awake, comfortable HEENT: Wet mucosa, no jvp, non icteric Lungs: Bilaterally clear without discernible wheeze, rales in all lung zones CVS: S1 S2, no murmurs Abdo: Soft, BS ok Ext 4: Minimal edema, peripheral perfusion with no cyanosis, surgical dressing noted Neurological: Grossly non-focal Data : 06/10/21 05:20 06/10/21 05:20 Micro: Microbiology 06/09/21 10:30 Blood Culture - Preliminary Blood NEGATIVE TO DATE 06/09/21 10:13 Blood Culture - Preliminary Blood NEGATIVE TO DATE A&P Additional A&P Information 1. ESRD Cont PD with current prescription CAPD, 2.5% solution, 2L, 5/day. Home prescription is CCPD, 8 hours on the cycler, three exchanges of 8 L, 2.5% and 1 day exchange of icodextrin. Dose medication for GFR less than fifteen on dialysis. 2. Status post TMA Postoperative day zero Management per orthopedics, infectious disease, currently on linezolid. 3. Hemodynamics Blood pressure and pulse look stable. 4. Anemia Continue to monitor during hospitalization, iron and EPO as an outpatient unless he has a lengthy hospital stay. 5. Chronic ESRD issues Continue home medication i.e. phosphorus binders, will start Zemplar for him., Levels can otherwise be monitored as an outpatient Thank you for consultation, as always it is a pleasure to follow these cases with you Pavel Urias MD Nephrology [phone] Patient seen and examined via telemedicine, with the assistance of the bedside RN > 25 min spent in evaluation and mgmt of patient Attestations Medical Necessity Statement*: Eval for ESRD Coding Level of Care Code Acute Sales Service Technician for Breanna Aguero
[2021-06-10 14:14] LABS: Coronavirus Test Green County Not Detected
[2021-06-10] MEDS: oxyCODONE-APAP 5-325 mg Tablet 1 TAB PO ×2 (14:42→18:58)
[2021-06-10] MEDS: cyclobenzaprine 10 mg Tablet 5 MG PO (14:44)
--- NOTE | 2021-06-10 15:08 | PC.CHAP ---
Pastoral Care Encounter/Spiritual Assessment Type of Contact [] Declined horticulture professor visit [] Patient/Family/Request visit [] Outpatient visit [] Follow-up visit [] Physician referral [] Code/Alert [] Routine visit [] Staff referral [] Actively dying [] Patient sleeping [] Family support [] [] Out of room [] Palliative care [] [xx] Receiving care in room [] Pre-surgical visit [] Trauma [] Long length of stay [] ICU visit [] Other: Relational/Emotional Strength [] Patient feels connected with others/family/visitors/staff [] Distress [] Loneliness/isolation [] Abandonment Spirituality of Patient [] Person of Kaitlyn [] Attends Buddhism of their Kaitlyn [] Believes in Prayer [] Reads Bible or Restoration materials [] There are Spiritual issues to be addressed Nursing Program Coordinator Interventions [] Prayer [] Active listening [] Non-anxious presence [] Spiritual/emotional support [] Crisis/trauma care [] Spiritual counseling [] Bereavement support [] Provided bereavement packet [] Provided Bible/devotional materials [] Provided toy/stuffed animal, coloring book to patient or family member [] Provided Communion [] Anointing/[place] [] Salvation [] Completed spiritual assessment [] Other: Impact on Illness or Injury [] Angry [] Fearful [] Anxious [] Often cries [] Exhaustion [] Unable to work [] Unable to attend mormonism [] Unable to walk/stand [] Unable to read [] Unable to drive [] Unable to eat/drink [] Unable to sleep [] Unable to be with family [] Patient intubated [] Other: Summary Follow up later Time spent with patient
[2021-06-10] MEDS: cefTRIAXone 2,000 MG in sodium chloride 0.9% (plus) 50 ML 100 MG IV (16:48)
[2021-06-10] MEDS: cloNIDine 0.1 mg Tablet PO (17:29)
[2021-06-10 17:41] LABS: Glucose Point of Care 163 mg/dL (70-110)
--- NOTE | 2021-06-10 20:44 | P.OP_ITS ---
Operative Report Date of procedure: June 10, 2021 Pre-op Diagnosis: Gangrene right foot, osteomyelitis right foot Post-op diagnosis: same Post-op Findings: Viable bone margins a transmetatarsal amputation level Procedure Done: Right transmetatarsal amputation Implants: 2-0 Vicryl utilized for ligation Pathology: Right forefoot sent to pathology for permanent Surgeon: Frankie Woodall D.P.M. Grocery Store Associate: Tanvir Anesthesia: MAC Estimated blood loss: 25 mL Tourniquet time: No tourniquet utilized IV fluids: None Urine output: None Complications: None Findings: None Condition: stable Disposition: PACU Brief History: Patient presents with gangrenous changes and osteomyelitis to the right forefoot involving the second and third toes up with a history of osteomyelitis at the great toe. Recommended transmetatarsal imitation as his most definitive level of surgery this would provide a more functional limb compared to multiple toe amputations would also be a more curative level of amputation to resolve current source of infection. Risks include pain, bleeding, numbness, persistent infection, need for additional surgery, loss of limb and loss of life. Need for antibiotic therapies and wound cares. Patient is n.p.o. since midnight, Covid screen pending, informed consent signed by patient and myself, I initialed his right lower extremity. Patient wishes to proceed. No guarantees written, expressed or implied. Procedure: Under mild sedation the patient was brought to the operating room and remained on the gurney in supine position. A timeout was performed. Anesthesia was then administered by the anesthesia service. Local anesthesia injected by myself consisting of 30 cc total of one-to-one mixture 1% lidocaine 0.5 sent Marcaine plain right ankle block. Well-padded pneumatic tourniquet applied to the right ankle, this was never inflated or utilized throughout the duration of procedure. Right lower extremity was scrubbed, prepped and draped utilizing normal aseptic technique. Attention was directed to the right forefoot where a fishmouth incision was performed full-thickness with a #10 blade at the right forefoot and a sagittal saw was utilized to transect metatarsals 1, 2, 3, 4 and 5, right forefoot was then sharply excised and passed off the field this will be sent to pathology for permanent. Both extensor and flexor tendons were pulled under traction and transected at the most proximal margin, viable margin of bone metatarsals 1 through 5 on right foot were appreciated intraoperatively. Pulsatile bleeders were ligated with 2-0 Vicryl other bleeders utilizing Bovie were ligated as necessary. Incision was packed with saline wet-to-dry dressing change consisting of Kerlix, sterile 4 x 4's, ABD pad and Octavio wrap as well as forward Coban. Patient tolerated the procedure well and was transferred to the PACU with vital signs stable and vascular status intact. Following a period of postoperative monitoring will be transferred back to the floor to continue empiric IV antibiotics. Plan for primary delayed closure this will entail further debridement, closure and right Achilles lengthening. Will hopefully be done early next week
[2021-06-10] MEDS: morphine 4 mg/mL SDV 1 mL 2 MG IVP (20:48)
[2021-06-10] MEDS: heparin 5,000 unit/mL INJ 1 mL 5000 UNIT SUBCUT (21:55)
[2021-06-10] MEDS: aspirin 81 mg EC Tablet PO (21:56)
[2021-06-10] MEDS: citalopram 20 mg Tablet PO (21:56)
[2021-06-10 22:08] LABS: Glucose Point of Care 168 mg/dL (70-110)
[2021-06-11] VITALS (16 sets, daily range): BP systolic 109–138; BP diastolic 55–78; PULSE 84–104; RESP 14–18; TEMP 36.7–37.6; O2SAT 93–95
[2021-06-11] MEDS: oxyCODONE-APAP 5-325 mg Tablet 1 TAB PO ×4 (00:18→17:28)
[2021-06-11] MEDS: Dianeal low Ca w/2.5% dex 2,000 mL Bag 2000 ML INTRAPERIT ×5 (00:20→22:38)
--- NOTE | 2021-06-11 00:36 | PC.NURSE ---
i reported high pulse 103 to nurse
[2021-06-11 05:27] LABS: Basophils % 0.3 %; Eosinophils # 0.2 10^3/uL (0.0-0.8); Eosinophils % 2.1 %; Hematocrit 26.4 % (42.0-52.0); Hemoglobin 8.4 g/dL (11.7-16.6); Lymphocytes # 0.7 10^3/uL (0.8-4.8); Lymphocytes % 6.7 %; Mean Corpuscular HGB Conc 31.8 g/dL (30.0-36.0); Mean Corpuscular Hemoglobin 30.1 pg (28.0-34.0); Mean Corpuscular Volume 94.6 fl (80-94); Mean Platelet Volume 10.8 fL (7.4-10.4); Monocytes # 1.3 10^3/uL (0.2-0.9); Monocytes % 12.2 %; Neutrophils # 8.43 10^3/uL (1.8-7.7); Neutrophils % 77.9 %; Nucleated Red Blood Cells % 0 %; Platelet Count 164 10^3/cmm (130-400); Red Blood Count 2.79 10^6/uL (4.1-5.3); Red Cell Distribution Width 14.4 % (12.1-15.1); White Blood Count 10.8 10^3/uL (4.0-10.0)
[2021-06-11 05:57] LABS: Anion Gap 18.9 (5-19); Blood Urea Nitrogen 64 mg/dL (8-23); Calcium 8.8 mg/dL (8.5-10.5); Carbon Dioxide 24 mmol/L (22-29); Chloride 95 mmol/L (98-107); Glomerular Filtration Rate 7.6 mL/min (90-130); Glucose 195 mg/dL (65-115); Osmolality Calculated 302 mOsm/kg (285-295); Potassium 3.9 mmol/L (3.5-5.1); Sodium 134 mmol/L (136-145)
[2021-06-11] MEDS: linezolid premix 600 MG/300 ML PREMIX 300 MG IV ×2 (06:37→17:27)
[2021-06-11] MEDS: TORSEmide 20 mg Tablet 100 MG PO (06:37)
[2021-06-11] MEDS: levothyroxine 175 mcg Tablet PO (06:37)
[2021-06-11] MEDS: allopurinol 300 mg Tablet PO (06:37)
[2021-06-11] MEDS: pantoprazole DR 40 mg Tablet PO (06:37)
[2021-06-11 06:41] LABS: Glucose Point of Care 194 mg/dL (70-110)
--- NOTE | 2021-06-11 08:01 | PM.PN ---
Subjective Subjective: Interval history: Seen and examined this morning. Patient is status post metatarsal amputation of right foot. No acute events overnight. Patient comfortable and pain is controlled. He has no concerns this morning. Vitals/I&O/Wt Last Vital Signs Temp 98.4 F 06/11/21 07:56 Pulse 104 H 06/11/21 07:56 Resp 16 06/11/21 07:56 BP 138/66 06/11/21 07:56 Pulse Ox 93 06/11/21 07:56 06/10/21 06/11/21 06/11/21 22:59 06:59 14:59 Intake Total 1590 / 2575 240 / 2815 300 / 300 Output Total 640 / 650 Balance 1590 / 2565 -400 / 2165 300 / 300 Weight last 48 hrs Weight 142.882 kg Weight 142.882 kg Physical Exam Narrative: EXAM NARRATIVE: General: Alert oriented x3, patient seen laying in bed appearing very comfortable. HEENT: Normocephalic, atraumatic, EOMI, breathing room air Cardio: Regular rate rhythm, normal S1-S2, no murmurs rubs gallops, Respiratory: Mild wheezing present at the bases posteriorly. Rest of lungs clear to auscultation. GI: Abdomen soft, nontender, nondistended, bowel sounds + Behavior: Appropriate and cooperative Extremities: no edema, no cyanosis, right foot status post transmetatarsal amputation wrapped with Band-Aid. Data : 06/11/21 04:22 06/11/21 04:22 Micro: Microbiology 06/09/21 10:30 Blood Culture - Preliminary Blood NEGATIVE TO DATE 06/09/21 10:13 Blood Culture - Preliminary Blood NEGATIVE TO DATE A&P Assessment and plan (1) Osteomyelitis: Status: Acute Qualifiers: Osteomyelitis type: other chronic Osteomyelitis location: foot Laterality: right Qualified Code(s): M86.671 - Other chronic osteomyelitis, right ankle and foot (2) Gangrene associated with type 2 diabetes mellitus: Status: Acute (3) Peripheral vascular disease: See notations above Status: Acute (4) ESRD (end stage renal disease): On peritoneal dialysis. Nephrology consultation to continue to provide the service. Status: Acute (5) Charcot's arthropathy: Status: Acute Additional A&P Information Currently admitted for gangrene and osteomyelitis, s/p transmetatarsal amputation 05/11 Outpatient cx from debridements with polymicrobial growth Patient with chronic diabetic foot ulcer of involving right second toe and part of distal right third toe. Podiatry following patient. He underwent transmetatarsal amputation 05/11. ID on board. Plan is to finish closure from podiatry standpoint on Sunday. Likely home Sunday evening or Sunday Assuming bone cx co relate with outpatient cultures, can likely use a combination of oral ciprofloxacin and Augmentin for ~ 2 weeks after amputation, once signs of adequate wound healing are noted. will follow bone margins from pathology, if clear margins, likely that oral therapy will be appropriate when nearing discharge. Currently on CTX and linezolid while inpatient. Will discuss final recommendations with ID once pathology report is here. We will place patient on DuoNeb 4 times daily for wheezing. For end-stage renal disease patient is on peritoneal dialysis. Nephrology is following Diabetes: Sliding scale insulin Fluids: Not indicated Electrolytes: Replete as needed Nutrition cardiac low-cholesterol low-fat diet Activity: As tolerated. DVT prophylaxis: Heparin subcu 3 times daily. Attestations Medical Necessity Statement*: Needs inpatient level of care. Awaiting pathology report to finalize antibiotics. Possible discharge Sunday versus Sunday. Time Spent in Patient Care: less than 15 minutes Coding Level of Care Code Acute Machine Rough Rounder for Breanna Aguero Diagnoses Osteomyelitis M86.671 Osteomyelitis type: other chronic Osteomyelitis location: foot Laterality: right Gangrene associated with type 2 diabetes mellitus E11.52 Peripheral vascular disease I73.9 ESRD (end stage renal disease) N18.6 Charcot's arthropathy M14.60
[2021-06-11] MEDS: metoprolol tartrate 50 mg Tablet 100 MG PO (09:04)
[2021-06-11] MEDS: heparin 5,000 unit/mL INJ 1 mL 5000 UNIT SUBCUT ×2 (09:04→20:59)
[2021-06-11] MEDS: cloNIDine 0.1 mg Tablet PO ×2 (09:04→17:28)
[2021-06-11] MEDS: morphine 4 mg/mL SDV 1 mL 2 MG IVP ×2 (09:05→15:04)
--- NOTE | 2021-06-11 09:34 | PM.PN ---
Subjective Subjective: Interval history: No new issues today. PD is going well. Flowing in and out without discomfort. Foot feels slightly sore but is tolerable. No edema and no other hypervolemic Sx. Medications: Reviewed: Yes Vitals/I&O/Wt Last Vital Signs Temp 98.4 F 06/11/21 07:56 Pulse 104 H 06/11/21 07:56 Resp 14 06/11/21 09:05 BP 138/66 06/11/21 09:04 Pulse Ox 93 06/11/21 09:05 06/10/21 06/11/21 06/11/21 22:59 06:59 14:59 Intake Total 1590 / 2575 240 / 2815 660 / 660 Output Total 640 / 650 Balance 1590 / 2565 -400 / 2165 660 / 660 Weight last 48 hrs Weight 142.882 kg Physical Exam Narrative: EXAM NARRATIVE: Constitutional: Awake, comfortable HEENT: Wet mucosa, no jvp, non icteric Lungs: Bilaterally clear without discernible wheeze, rales in all lung zones CVS: S1 S2, no murmurs Abdo: Soft, BS ok Ext 4: Minimal edema, peripheral perfusion with no cyanosis, surgical dressing noted Neurological: Grossly non-focal Data : 06/11/21 04:22 06/11/21 04:22 Micro: Microbiology 06/09/21 10:30 Blood Culture - Preliminary Blood NEGATIVE TO DATE 06/09/21 10:13 Blood Culture - Preliminary Blood NEGATIVE TO DATE A&P Additional A&P Information 1. ESRD Cont PD with current prescription CAPD, 2.5% solution, 2L, 5/day. Home prescription is CCPD, 8 hours on the cycler, three exchanges of 8 L, 2.5% and 1 day exchange of icodextrin. Dose medication for GFR less than fifteen on dialysis. 2. Status post TMA Postoperative day 1 Management per Podiatry, infectious disease, currently on linezolid. 3. Hemodynamics Blood pressure and pulse look stable. 4. Anemia Dropping; will check iron levels 5. Chronic ESRD issues Continue home medication i.e. phosphorus binders, will start Zemplar for him., Levels can otherwise be monitored as an outpatient Thank you for consultation, as always it is a pleasure to follow these cases with you Pavel Urias MD Nephrology [phone] Patient seen and examined via telemedicine, with the assistance of the bedside RN > 25 min spent in evaluation and mgmt of patient Attestations Medical Necessity Statement*: ESRD mgmt Coding Level of Care Code Acute Network Technician for Breanna Aguero
--- NOTE | 2021-06-11 10:34 | P.PN_ITS ---
Subjective Subjective: Interval history: Patient seen bedside, he is 1 day status post right transmetatarsal amputation secondary to gangrene. Patient still emotional about amputation of his right forefoot. Some strikethrough bleeding at the dressing. Patient denies any subjective nausea, vomiting, fever, chills, shortness of breath or chest pain. Vitals/I&O/Wt Last Vital Signs Temp 98.4 F 06/11/21 07:56 Pulse 104 H 06/11/21 07:56 Resp 14 06/11/21 09:05 BP 138/66 06/11/21 09:04 Pulse Ox 93 06/11/21 09:05 06/10/21 06/11/21 06/11/21 22:59 06:59 14:59 Intake Total 1590 / 2575 240 / 2815 660 / 660 Output Total 640 / 650 Balance 1590 / 2565 -400 / 2165 660 / 660 Weight last 48 hrs Weight 315 lb Physical Exam Narrative: EXAM NARRATIVE: VASCULAR: Dorsalis pedis and posterior tibial arteries palpable +1 bilaterally. Weak biphasic PT and DP pulses at the right foot. NEUROLOGICAL: Protective sensation intact 0/10 sites, tested with [place] Sergei monofilament to bilateral feet. DERMATOLOGICAL: No active bleeding transmetatarsal amputation site right foot there is still pink skin margins. MUSCULOSKELETAL: Status post right transmetatarsal amputation. 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 Status post right transmetatarsal amputation date of operation 06/10/2021 Patient to remain nonweightbearing to the right lower extremity. Elevate right foot while at rest Will continue once daily saline wet-to-dry dressing changes Plan for primary delayed closure and right Achilles lengthening Sunday06/14/2021 at noon. Appreciate infectious disease recommendations for antibiotic regimen, planning for 2 weeks of oral antibiotics on discharge From podiatry standpoint would plan for discharge following primary delayed closure Sunday Will follow up weekly in podiatry clinic postoperatively. Attestations Medical Necessity Statement*: Diabetic foot infection and gangrene right foot. Coding Level of Care Code Acute Scaffold Erector for [facility] Fwd Diagnoses Peripheral vascular disease I73.9 Non-pressure chronic ulcer of other part of right foot with necrosis of bone L97.514 Diabetic peripheral neuropathy associated with type 2 diabetes mellitus E11.42 Gangrene associated with type 2 diabetes mellitus E11.52 ESRD (end stage renal disease) N18.6
[2021-06-11 11:18] LABS: Glucose Point of Care 236 mg/dL (70-110)
[2021-06-11] MEDS: cyclobenzaprine 10 mg Tablet 5 MG PO (13:09)
[2021-06-11] MEDS: cefTRIAXone 2,000 MG in sodium chloride 0.9% (plus) 50 ML 100 MG IV (15:56)
[2021-06-11 17:12] LABS: Glucose Point of Care 212 mg/dL (70-110)
[2021-06-11 20:31] LABS: Glucose Point of Care 195 mg/dL (70-110)
[2021-06-11] MEDS: aspirin 81 mg EC Tablet PO (21:02)
[2021-06-11] MEDS: citalopram 20 mg Tablet PO (21:02)
--- NOTE | 2021-06-11 22:21 | PC.NURSE ---
Pt bp is 110/57 with HR of 88. He has 100mg Losartan potassium, 10mg Amlodipine, and 100mg of Metoprolol valeria for 2100. Dr Bower contacted, verbal order to hold these meds d/t diastolic 57.
[2021-06-12] VITALS (10 sets, daily range): BP systolic 113–147; BP diastolic 57–82; PULSE 97–112; RESP 14–18; TEMP 36.8–37.3; O2SAT 90–96
[2021-06-12] MEDS: cyclobenzaprine 10 mg Tablet 5 MG PO (04:02)
[2021-06-12] MEDS: oxyCODONE-APAP 5-325 mg Tablet 1 TAB PO ×3 (04:02→13:43)
[2021-06-12] MEDS: Dianeal low Ca w/2.5% dex 2,000 mL Bag 2000 ML INTRAPERIT ×3 (04:03→21:29)
[2021-06-12 05:13] LABS: Basophils % 0.2 %; Eosinophils # 0.3 10^3/uL (0.0-0.8); Eosinophils % 2.4 %; Hematocrit 26.4 % (42.0-52.0); Hemoglobin 8.2 g/dL (11.7-16.6); Lymphocytes # 0.9 10^3/uL (0.8-4.8); Lymphocytes % 6.5 %; Mean Corpuscular HGB Conc 31.1 g/dL (30.0-36.0); Mean Corpuscular Hemoglobin 30.9 pg (28.0-34.0); Mean Corpuscular Volume 99.6 fl (80-94); Mean Platelet Volume 10.7 fL (7.4-10.4); Monocytes # 1.5 10^3/uL (0.2-0.9); Monocytes % 10.8 %; Neutrophils # 11.03 10^3/uL (1.8-7.7); Neutrophils % 79.3 %; Nucleated Red Blood Cells % 0 %; Platelet Count 173 10^3/cmm (130-400); Red Blood Count 2.65 10^6/uL (4.1-5.3); Red Cell Distribution Width 14.6 % (12.1-15.1); White Blood Count 13.9 10^3/uL (4.0-10.0)
[2021-06-12 05:39] LABS: Iron 30 ug/dL (59-158); Percent Saturation 23.2 % (20-50); Total Iron Binding Capacity 129 mcg/dl; Unsaturated Iron Binding 99 ug/dL (112-347)
[2021-06-12 05:40] LABS: Anion Gap 19.9 (5-19); Blood Urea Nitrogen 61 mg/dL (8-23); Calcium 8.9 mg/dL (8.5-10.5); Carbon Dioxide 23 mmol/L (22-29); Chloride 94 mmol/L (98-107); Glomerular Filtration Rate 7.4 mL/min (90-130); Glucose 180 mg/dL (65-115); Osmolality Calculated 298 mOsm/kg (285-295); Potassium 3.9 mmol/L (3.5-5.1); Sodium 133 mmol/L (136-145)
[2021-06-12] MEDS: linezolid premix 600 MG/300 ML PREMIX 300 MG IV ×2 (05:40→17:43)
--- NOTE | 2021-06-12 05:45 | PC.NURSE ---
Dr Bower notified of pt CH creatinine of 7.4 up from 7.2 yesterday. no new orders at this time
[2021-06-12] MEDS: allopurinol 300 mg Tablet PO (06:18)
[2021-06-12] MEDS: pantoprazole DR 40 mg Tablet PO (06:18)
[2021-06-12] MEDS: levothyroxine 175 mcg Tablet PO (06:18)
[2021-06-12 06:21] LABS: Glucose Point of Care 219 mg/dL (70-110)
--- NOTE | 2021-06-12 06:30 | PC.NURSE ---
Dr. Bower notified Pt bp is 113/57 with HR of 97. He has 100mg Torsemide this morning @ 0600, provider ok'd to admin medication.
[2021-06-12] MEDS: TORSEmide 20 mg Tablet 100 MG PO (06:52)
--- NOTE | 2021-06-12 08:14 | P.PN_ITS ---
Subjective Subjective: Interval history: Seen and examined this morning. He feels well. No change compared to yesterday. He is quite comfortable. Podiatry is seeing the patient. Most likely will go to the OR for closure Sunday or Sunday. He has no complaints today. Medications: Reviewed: Yes Vitals/I&O/Wt Last Vital Signs Temp 98.3 F 06/12/21 07:57 Pulse 99 06/12/21 07:57 Resp 16 06/12/21 07:57 BP 140/66 06/12/21 07:57 Pulse Ox 90 06/12/21 07:57 06/11/21 06/12/21 06/12/21 22:59 06:59 14:59 Intake Total 1070 / 1970 4000 / 5970 300 / 300 Output Total 200 / 200 4251 / 4451 Balance 870 / 1770 -251 / 1519 300 / 300 Physical Exam Narrative: EXAM NARRATIVE: General: Alert oriented x3, patient seen laying in bed appearing very comfortable. HEENT: Normocephalic, atraumatic, EOMI, breathing room air Cardio: Regular rate rhythm, normal S1-S2, no murmurs rubs gallops, Respiratory: Lungs clear to auscultation today. GI: Abdomen soft, nontender, nondistended, bowel sounds + Behavior: Appropriate and cooperative Extremities: no edema, no cyanosis, right foot status post transmetatarsal amputation wrapped with Band-Aid. Data : 06/12/21 04:50 06/12/21 04:50 A&P Assessment and plan (1) Osteomyelitis: Status: Acute Qualifiers: Osteomyelitis type: other chronic Osteomyelitis location: foot Laterality: right Qualified Code(s): M86.671 - Other chronic osteomyelitis, right ankle and foot (2) Gangrene associated with type 2 diabetes mellitus: Status: Acute (3) Peripheral vascular disease: See notations above Status: Acute (4) ESRD (end stage renal disease): On peritoneal dialysis. Nephrology consultation to continue to provide e service. Status: Acute (5) Charcot's arthropathy: Status: Acute Additional A&P Information Currently admitted for gangrene and osteomyelitis, s/p transmetatarsal am putation 05/11 Outpatient cx from debridements with polymicrobial growth Patient with chronic diabetic foot ulcer of involving right second toe and part of distal right third toe. Podiatry following patient. He underwent transmetatarsal amputation 05/11. ID on board. Plan is to finish closure from podiatry standpoint on Sunday or Sunday. Likely home Sunday evening or Sunday Assuming bone cx co relate with outpatient cultures, can likely use a combination of oral ciprofloxacin and Augmentin for ~ 2 weeks after amputation, once signs of adequate wound healing are noted. will follow bone margins from pathology, if clear margins, likely that oral therapy will be appropriate when nearing discharge. Currently on CTX and linezolid while inpatient. Will discuss final recommendations with ID once pathology report is here. For end-stage renal disease patient is on peritoneal dialysis. Nephrology is following Diabetes: Sliding scale insulin Fluids: Not indicated Electrolytes: Replete as needed Nutrition cardiac low-cholesterol low-fat diet Activity: As tolerated. DVT prophylaxis: Heparin subcu 3 times daily. Attestations Medical Necessity Statement*: Requires inpatient level care. Possible discharge Sunday or Sunday. Time Spent in Patient Care: less than 15 minutes Coding Level of Care Code Acute Real Estate Investor for [facility] Fwd Diagnoses Osteomyelitis M86.671 Osteomyelitis type: other chronic Osteomyelitis location: foot Laterality: right Gangrene associated with type 2 diabetes mellitus E11.52 Peripheral vascular disease I73.9 ESRD (end stage renal disease) N18.6 Charcot's arthropathy M14.60
[2021-06-12] MEDS: heparin 5,000 unit/mL INJ 1 mL 5000 UNIT SUBCUT ×2 (08:28→19:55)
[2021-06-12] MEDS: cloNIDine 0.1 mg Tablet PO ×2 (08:28→17:40)
[2021-06-12] MEDS: metoprolol tartrate 50 mg Tablet 100 MG PO ×2 (08:29→21:25)
--- NOTE | 2021-06-12 10:37 | P.PN_ITS ---
Subjective Subjective: Interval history: No new issues today. Levi feels essentially well. Peritoneal dialysis is going well. And and outflow is comfortable. The effluent is clear, not cloudy. Hemodynamics reviewed. His foot remains comfortable. Medications: Reviewed: Yes Vitals/I&O/Wt Last Vital Signs Temp 98.3 F 06/12/21 07:57 Pulse 99 06/12/21 07:57 Resp 16 06/12/21 08:29 BP 140/66 06/12/21 08:28 Pulse Ox 90 06/12/21 08:29 06/11/21 06/12/21 06/12/21 22:59 06:59 14:59 Intake Total 1070 / 1970 4000 / 5970 660 / 660 Output Total 200 / 200 4251 / 4451 200 / 200 Balance 870 / 1770 -251 / 1519 460 / 460 Physical Exam Narrative: EXAM NARRATIVE: Constitutional: Awake, comfortable HEENT: Wet mucosa, no jvp, non icteric Lungs: Bilaterally clear without discernible wheeze, rales in all lung zones CVS: S1 S2, no murmurs Abdo: Soft, BS ok Ext 4: Minimal edema, peripheral perfusion with no cyanosis, surgical dressing noted Neurological: Grossly non-focal Data : 06/12/21 04:50 06/12/21 04:50 A&P Additional A&P Information 1. ESRD Cont PD with current prescription CAPD, 2.5% solution, 2L, 5/day. Home prescription is CCPD, 8 hours on the cycler, three exchanges of 8 L, 2.5% and 1 day exchange of icodextrin. Dose medication for GFR less than fifteen on dialysis. 2. Status post TMA Postoperative day 2 Management per Podiatry, infectious disease, currently on antibiotics 3. Hemodynamics Blood pressure and pulse look stable. 4. Anemia iron sat 23%, will give some iv iron 50mg iv x 10 daily while here and give EPO x 1 today 5. Chronic ESRD issues Continue home medication i.e. phosphorus binders, will start Zemplar for him., Levels can otherwise be monitored as an outpatient Thank you for consultation, as always it is a pleasure to follow these cases with you Pavel Urias MD Nephrology [phone] Patient seen and examined via telemedicine, with the assistance of the bedside RN > 25 min spent in evaluation and mgmt of patient Attestations Medical Necessity Statement*: eval for ESRD mgmt Coding Level of Care Code Acute Mortgage Funder for g More
[2021-06-12 11:15] LABS: Glucose Point of Care 181 mg/dL (70-110)
[2021-06-12] MEDS: epoetin alfa 1000 Unit/0.05 mL (ESRD) 20000 UNIT SUBCUT (11:51)
--- NOTE | 2021-06-12 13:53 | PC.SOCIAL ---
Pg 2 IMM Explained to pt Pg 2 IMM. No questions voiced. Provided pt a copy. Initialed, dated, & timed a copy & placed in chart.
[2021-06-12] MEDS: cefTRIAXone 2,000 MG in sodium chloride 0.9% (plus) 50 ML 100 MG IV (16:48)
[2021-06-12 16:53] LABS: Glucose Point of Care 227 mg/dL (70-110)
[2021-06-12] MEDS: morphine 4 mg/mL SDV 1 mL 2 MG IVP (17:40)
[2021-06-12 20:48] LABS: Glucose Point of Care 197 mg/dL (70-110)
--- NOTE | 2021-06-12 20:55 | PC.NURSE ---
i reported high pulse 101 to nurse
[2021-06-12] MEDS: losartan 50 mg Tablet 100 MG PO (21:24)
[2021-06-12] MEDS: aspirin 81 mg EC Tablet PO (21:24)
[2021-06-12] MEDS: citalopram 20 mg Tablet PO (21:24)
[2021-06-12] MEDS: amlodipine 10 mg Tablet PO (21:24)
[2021-06-13] VITALS (13 sets, daily range): BP systolic 111–154; BP diastolic 54–89; PULSE 82–99; RESP 16–18; TEMP 36.5–37; O2SAT 93–95
[2021-06-13] MEDS: Dianeal low Ca w/2.5% dex 2,000 mL Bag 2000 ML INTRAPERIT ×4 (02:33→21:17)
[2021-06-13 05:13] LABS: Basophils % 0.1 %; Eosinophils # 0.3 10^3/uL (0.0-0.8); Eosinophils % 2.3 %; Hematocrit 25.8 % (42.0-52.0); Hemoglobin 8.1 g/dL (11.7-16.6); Lymphocytes # 0.8 10^3/uL (0.8-4.8); Lymphocytes % 5.3 %; Mean Corpuscular HGB Conc 31.4 g/dL (30.0-36.0); Mean Corpuscular Hemoglobin 30.5 pg (28.0-34.0); Mean Platelet Volume 10.6 fL (7.4-10.4); Monocytes # 1.3 10^3/uL (0.2-0.9); Monocytes % 8.9 %; Neutrophils # 11.86 10^3/uL (1.8-7.7); Neutrophils % 82.4 %; Nucleated Red Blood Cells % 0 %; Platelet Count 163 10^3/cmm (130-400); Red Blood Count 2.66 10^6/uL (4.1-5.3); Red Cell Distribution Width 14.5 % (12.1-15.1); White Blood Count 14.4 10^3/uL (4.0-10.0)
[2021-06-13] MEDS: levothyroxine 175 mcg Tablet PO (05:20)
[2021-06-13] MEDS: allopurinol 300 mg Tablet PO (05:20)
[2021-06-13] MEDS: pantoprazole DR 40 mg Tablet PO (05:20)
[2021-06-13] MEDS: TORSEmide 20 mg Tablet 100 MG PO (05:21)
[2021-06-13] MEDS: linezolid premix 600 MG/300 ML PREMIX 300 MG IV ×2 (05:23→16:21)
[2021-06-13 05:40] LABS: Blood Urea Nitrogen 62 mg/dL (8-23); Calcium 9.2 mg/dL (8.5-10.5); Carbon Dioxide 24 mmol/L (22-29); Chloride 95 mmol/L (98-107); Glomerular Filtration Rate 7.3 mL/min (90-130); Glucose 218 mg/dL (65-115); Magnesium 1.7 mg/dL (1.7-2.3); Osmolality Calculated 302 mOsm/kg (285-295); Sodium 134 mmol/L (136-145)
[2021-06-13 06:45] LABS: Glucose Point of Care 245 mg/dL (70-110)
--- NOTE | 2021-06-13 07:23 | XR_ITS ---
WS: [id number] XR foot RT min 3V* [id number] REASON FOR EXAM: post op FINDINGS: Amputation of the forefoot at the level of the proximal metatarsals. Old nonunion fracture of the base of the fifth metatarsal. Severe degenerative arthropathy in the midfoot tarsal metatarsal joints with joint space narrowing an d subchondral sclerosis. XR/XR foot RT min 3V* [id number] IMPRESSION: Post forefoot amputation as above.
[2021-06-13] MEDS: cloNIDine 0.1 mg Tablet PO ×2 (08:03→16:21)
[2021-06-13] MEDS: metoprolol tartrate 50 mg Tablet 100 MG PO ×2 (08:03→20:47)
[2021-06-13] MEDS: heparin 5,000 unit/mL INJ 1 mL 5000 UNIT SUBCUT (08:03)
[2021-06-13 11:55] LABS: Glucose Point of Care 222 mg/dL (70-110)
[2021-06-13] MEDS: oxyCODONE-APAP 5-325 mg Tablet 1 TAB PO (12:25)
--- NOTE | 2021-06-13 12:36 | PC.NURSE ---
Dr Woodall changed patient's dressing to right foot. Per Dr Woodall, he has gotten recommendation from Dr Hackett on antibiotic recommendation.
--- NOTE | 2021-06-13 12:44 | PM.PN ---
Subjective Subjective: Interval history: Patient seen bedside, he is 1 day status post right transmetatarsal amputation secondary to gangrene. Patient still emotional about amputation of his right forefoot. His is bedside. Patient denies any subjective nausea, vomiting, fever, chills, shortness of breath or chest pain. Vitals/I&O/Wt Last Vital Signs Temp 97.7 F 06/13/21 11:17 Pulse 82 06/13/21 11:17 Resp 18 06/13/21 12:25 BP 124/75 06/13/21 11:17 Pulse Ox 95 06/13/21 12:25 06/12/21 06/13/21 06/13/21 22:59 06:59 14:59 Intake Total 402.5 / 1062.5 300 / 1362.5 240 / 240 Output Total 450 / 650 Balance 402.5 / 862.5 -150 / 712.5 240 / 240 Weight last 48 hrs Weight 315 lb Physical Exam Narrative: EXAM NARRATIVE: VASCULAR: Dorsalis pedis and posterior tibial arteries palpable +1 bilaterally. Weak biphasic PT and DP pulses at the right foot. NEUROLOGICAL: Protective sensation intact 0/10 sites, tested with [place] Sergei monofilament to bilateral feet. DERMATOLOGICAL: No active bleeding transmetatarsal amputation site right foot there is still pink skin margins. Hemorrhagic bullae to the right anterior ankle likely from ankle block intraoperatively. No warmth or drainage. MUSCULOSKELETAL: Status post right transmetatarsal amputation. Data : 06/13/21 05:00 06/13/21 05:00 A&P Assessment and plan (1) Peripheral vascular disease: Status: Acute (2) Non-pressure chronic ulcer of other part of right foot with necrosis of bone: Status: Acute (3) Diabetic peripheral neuropathy associated with type 2 diabetes mellitus: Status: Acute (4) Gangrene associated with type 2 diabetes mellitus: Status: Acute (5) ESRD (end stage renal disease): Status: Acute (6) Bullae: Status: Acute 66-year-old male with gangrene, end-stage renal disease, diabetes mellitus type 2 with peripheral polyneuropathy, history of osteomyelitis, has an acute gangrenous right second and third toe. Status post right transmetatarsal amputation date of operation 06/10/2021 Patient to remain nonweightbearing to the right lower extremity. Elevate right foot while at rest Will continue once daily saline wet-to-dry dressing changes Plan for primary delayed closure and right Achilles lengthening Sunday06/14/2021 at noon. Appreciate infectious disease recommendations for antibiotic regimen, planning for 2 weeks of oral antibiotics on discharge From podiatry standpoint would plan for discharge following primary delayed closure Sunday Will follow up weekly in podiatry clinic postoperatively. Patient to be n.p.o. at midnight tonight in preparation for delayed closure tomorrow noon and Achilles lengthening Can be performed under MAC anesthesia can remain on the [place], duration of procedure 45 minutes Attestations Medical Necessity Statement*: Diabetic foot action right Coding Level of Care Code Acute Marketing Lead for [facility] Fwd Diagnoses Peripheral vascular disease I73.9 Non-pressure chronic ulcer of other part of right foot with necrosis of bone L97.514 Diabetic peripheral neuropathy associated with type 2 diabetes mellitus E11.42 Gangrene associated with type 2 diabetes mellitus E11.52 ESRD (end stage renal disease) N18.6 Bullae R23.8
--- NOTE | 2021-06-13 13:34 | PC.NURSE ---
notified Dr Nguyen that patient's brought in home med Auryxia. Asking if he wants to continue home med.
--- NOTE | 2021-06-13 13:36 | PC.NURSE ---
rcvd order from DR Nguyen to continue patients home med Auryxia. med sent to pharmacy
--- NOTE | 2021-06-13 13:45 | PM.PN ---
Subjective Subjective: Interval history: Nothing too much new with Levi today. Peritoneal dialysis continues to do well with painless and and outflow. Parameters are reviewed. The discomfort in his foot is manageable. Overall remains jovial, looking forward to his discharge in a few days. Medications: Reviewed: Yes Vitals/I&O/Wt Last Vital Signs Temp 97.7 F 06/13/21 11:17 Pulse 82 06/13/21 11:17 Resp 18 06/13/21 12:25 BP 124/75 06/13/21 11:17 Pulse Ox 95 06/13/21 12:25 06/12/21 06/13/21 06/13/21 22:59 06:59 14:59 Intake Total 402.5 / 1062.5 300 / 1362.5 532.5 / 532.5 Output Total 450 / 650 Balance 402.5 / 862.5 -150 / 712.5 532.5 / 532.5 Weight last 48 hrs Weight 142.882 kg Physical Exam Narrative: EXAM NARRATIVE: Constitutional: Awake, comfortable HEENT: Wet mucosa, no jvp, non icteric Lungs: Bilaterally clear without discernible wheeze, rales in all lung zones CVS: S1 S2, no murmurs Abdo: Soft, BS ok Ext 4: Minimal edema, peripheral perfusion with no cyanosis, surgical dressing noted Neurological: Grossly non-focal Data : 06/13/21 05:00 06/13/21 05:00 A&P Additional A&P Information 1. ESRD Cont PD with current prescription CAPD, 2.5% solution, 2L, 5/day. Home prescription is CCPD, 8 hours on the cycler, three exchanges of 8 L, 2.5% and 1 day exchange of icodextrin. No changes today, CCPD going well. Dose medication for GFR less than fifteen on dialysis. 2. Status post TMA Postoperative day 3 Management per Podiatry, infectious disease, currently on antibiotics 3. Hemodynamics Blood pressure and pulse look stable. 4. Anemia iron sat 23%, will give some iv iron 50mg iv x 10 daily while here and give EPO x 1 today 5. Chronic ESRD issues Continue home medication i.e. phosphorus binders, Levels can otherwise be monitored as an outpatient Thank you for consultation, as always it is a pleasure to follow these cases with you Pavel Urias MD Nephrology [phone] Patient seen and examined via telemedicine, with the assistance of the bedside RN > 25 min spent in evaluation and mgmt of patient Attestations Medical Necessity Statement*: Eval for ESRD mgmt Coding Level of Care Code Acute Other Sales Support Worker for carla Aguero
[2021-06-13] MEDS: cefTRIAXone 2,000 MG in sodium chloride 0.9% (plus) 50 ML 100 MG IV (15:35)
[2021-06-13 17:16] LABS: Glucose Point of Care 200 mg/dL (70-110)
--- NOTE | 2021-06-13 18:21 | PM.PN ---
Subjective Subjective: Interval history: Patient is endorsing pain 02/17, is also endorsing that his pain is under control with current opioid regimen Afebrile I appreciate ID and podiatry recommendations Plan for primary delayed closure and right Achilles lengthening Sunday06/14/2021 at noon. Vitals/I&O/Wt Last Vital Signs Temp 98.6 F 06/13/21 15:45 Pulse 84 06/13/21 15:45 Resp 17 06/13/21 15:53 BP 114/76 06/13/21 16:21 Pulse Ox 93 06/13/21 15:45 06/13/21 06/13/21 06/13/21 06:59 14:59 22:59 Intake Total 300 / 1362.5 532.5 / 532.5 590 / 1122.5 Output Total 450 / 650 300 / 300 Balance -150 / 712.5 532.5 / 532.5 290 / 822.5 Weight last 48 hrs Weight 142.882 kg Weight 142.882 kg Physical Exam Narrative: EXAM NARRATIVE: Patient was in supine position without any active discomfort Saturating well on room air Distended abdomen visceral obesity Right foot covered with dry clean dressing no active drainage noted S1, S2 No acute respiratory distress Awake alert 20x3 GCS 15 No neurological deficit [place] margins noted around surgical site Hemorrhagic bullae right anterior ankle Data : 06/13/21 05:00 06/13/21 05:00 A&P Assessment and plan (1) Bullae: Status: Acute (2) Charcot's arthropathy: Status: Acute (3) Peripheral vascular disease: Status: Acute (4) Hammertoe: Status: Acute Qualifiers: Laterality: bilateral Qualified Code(s): M20.41 - Other hammer toe(s) (acquired), right foot; M20.42 - Other hammer toe(s) (acquired), left foot (5) Septic thrombophlebitis of upper extremities: Status: Acute (6) Critical limb ischemia with history of revascularization of same extremity: Status: Acute (7) DM type 2 (diabetes mellitus, type 2): Status: Acute (8) History of transmetatarsal amputation of foot: Status: Acute Additional A&P Information Status post right transmetatarsal amputation 06/10 Secondary to gangrene, osteomyelitis right second and third toe Underlying history of diabetes Afebrile No postoperative complication Hemorrhagic bullae Hemodynamically stable Wet-to-dry dressing change as per podiatry Primary layered closure 06/14 Appreciate ID recommendations, patient does have clean wound margins, would recommend ciprofloxacin and Augmentin at the time of discharge with outpatient follow-up with ID N.p.o. after midnight Hold DVT prophylaxis Attestations Medical Necessity Statement*: Procedure tomorrow Time Spent in Patient Care: less than 15 minutes Coding Level of Care Code Acute Sheet Metal Assembler And Riveter for g Fwd Diagnoses Bullae R23.8 Charcot's arthropathy M14.60 Peripheral vascular disease I73.9 Hammertoe M20.41; M20.42 Laterality: bilateral Septic thrombophlebitis of upper extremities I80.8 Critical limb ischemia with history of revascularization of same extremity I99.8; Z95.9 DM type 2 (diabetes mellitus, type 2) E11.9 History of transmetatarsal amputation of foot Z89.439
[2021-06-13] MEDS: citalopram 20 mg Tablet PO (20:47)
[2021-06-13] MEDS: amlodipine 10 mg Tablet PO (20:47)
[2021-06-13] MEDS: aspirin 81 mg EC Tablet PO (20:47)
[2021-06-13] MEDS: losartan 50 mg Tablet 100 MG PO (20:47)
[2021-06-13 21:06] LABS: Glucose Point of Care 201 mg/dL (70-110)
[2021-06-14] VITALS (20 sets, daily range): BP systolic 83–139; BP diastolic 42–86; PULSE 61–97; RESP 12–18; TEMP 36.5–37.1; O2SAT 93–98
[2021-06-14 02:37] LABS: Basophils % 0.1 %; Eosinophils # 0.3 10^3/uL (0.0-0.8); Eosinophils % 1.9 %; Hematocrit 26.2 % (42.0-52.0); Hemoglobin 8.5 g/dL (11.7-16.6); Lymphocytes # 0.8 10^3/uL (0.8-4.8); Lymphocytes % 5.6 %; Mean Corpuscular HGB Conc 32.4 g/dL (30.0-36.0); Mean Corpuscular Hemoglobin 30.6 pg (28.0-34.0); Mean Corpuscular Volume 94.2 fl (80-94); Mean Platelet Volume 10.4 fL (7.4-10.4); Monocytes # 1.2 10^3/uL (0.2-0.9); Monocytes % 8.7 %; Neutrophils # 11.25 10^3/uL (1.8-7.7); Neutrophils % 82.5 %; Nucleated Red Blood Cells % 0 %; Platelet Count 189 10^3/cmm (130-400); Red Blood Count 2.78 10^6/uL (4.1-5.3); Red Cell Distribution Width 14.4 % (12.1-15.1); White Blood Count 13.7 10^3/uL (4.0-10.0)
[2021-06-14 02:49] LABS: Anion Gap 21.7 (5-19); Blood Urea Nitrogen 64 mg/dL (8-23); Calcium 8.6 mg/dL (8.5-10.5); Carbon Dioxide 23 mmol/L (22-29); Chloride 91 mmol/L (98-107); Glomerular Filtration Rate 7.2 mL/min (90-130); Glucose 158 mg/dL (65-115); Osmolality Calculated 296 mOsm/kg (285-295); Potassium 3.7 mmol/L (3.5-5.1); Sodium 132 mmol/L (136-145)
[2021-06-14] MEDS: Dianeal low Ca w/2.5% dex 2,000 mL Bag 2000 ML INTRAPERIT ×4 (04:04→20:10)
[2021-06-14] MEDS: TORSEmide 20 mg Tablet 100 MG PO (05:04)
[2021-06-14] MEDS: pantoprazole DR 40 mg Tablet PO (05:04)
[2021-06-14] MEDS: allopurinol 300 mg Tablet PO (05:04)
[2021-06-14] MEDS: levothyroxine 175 mcg Tablet PO (05:04)
[2021-06-14] MEDS: linezolid premix 600 MG/300 ML PREMIX 300 MG IV ×2 (05:05→16:23)
[2021-06-14 06:48] LABS: Glucose Point of Care 242 mg/dL (70-110)
[2021-06-14] MEDS: metoprolol tartrate 50 mg Tablet 100 MG PO ×2 (09:10→20:09)
[2021-06-14] MEDS: cloNIDine 0.1 mg Tablet PO ×2 (09:10→16:18)
--- NOTE | 2021-06-14 09:22 | PC.SOCIAL ---
IMM Update pg 2 of IMM updated and reviewed w/ patient. Copy provided.
--- NOTE | 2021-06-14 10:39 | PC.CHAP ---
Pastoral Care Encounter/Spiritual Assessment Type of Contact [] Declined clinical applications specialist visit [] Patient/Family/Request visit [] Outpatient visit [] Follow-up visit [] Physician referral [] Code/Alert [x] Routine visit [] Staff referral [] Actively dying [] Patient sleeping [] Family support [] [] Out of room [] Palliative care [] [] Receiving care in room [] Pre-surgical visit [] Trauma [] Long length of stay [] ICU visit [] Other: Relational/Emotional Strength [x] Patient feels connected with others/family/visitors/staff [] Distress [] Loneliness/isolation [] Abandonment Spirituality of Patient [x] Person of Kaitlyn [] Attends Restoration of their Kaitlyn [x] Believes in Prayer [] Reads Bible or Orthodox materials [] There are Spiritual issues to be addressed Manager Product Management Interventions [x] Prayer [x] Active listening [x] Non-anxious presence [x] Spiritual/emotional support [] Crisis/trauma care [] Spiritual counseling [] Bereavement support [] Provided bereavement packet [] Provided Bible/devotional materials [] Provided toy/stuffed animal, coloring book to patient or family member [] Provided Communion [] Anointing/[place] [] Salvation [x] Completed spiritual assessment [] Other: Impact on Illness or Injury [] Angry [] Fearful [] Anxious [] Often cries [] Exhaustion [] Unable to work [] Unable to attend nondenominational [] Unable to walk/stand [] Unable to read [] Unable to drive [] Unable to eat/drink [] Unable to sleep [] Unable to be with family [] Patient intubated [] Other: Summary Pt has toes amputated which is not the outcome he had hoped for. He is fighting an infection. He is expecting to undergo a second surgery today to further address the infection. His will be here shortly to be here while he is in surgery and to be with him in the room when he is returned. Time spent with patient 15 m
[2021-06-14 10:44] LABS: Glucose Point of Care 197 mg/dL (70-110)
[2021-06-14] MEDS: sodium chloride 0.9% 1,000 ML 30 ML IV (11:45)
--- NOTE | 2021-06-14 11:50 | P.ANESASSM_ITS ---
Pre-Anesthetic Assessment Pre-Anesthetic Assessment: Height/Weight: Height 1.83 m Weight 142.882 kg Temp Pulse Resp BP Pulse Ox 98.8 F 88 18 124/75 93 06/14/21 09:45 06/14/21 09:45 06/14/21 09:45 06/14/21 09:43 06/14/21 10:39 Preop Diagnosis: Gangrene right foot, osteomyelitis right foot Proposed Procedure: Operation Date: 06/10/21 08:35 Proposed Procedures p Incision And Drainage right foot(Right) - Frankie Woodall DPM Operation Date: 06/14/21 12:00 Proposed Procedures p Delayed Wound Closure(Right) - Frankie Woodall DPM s Tendon Lengthening Foot(Right) - Frankie Woodall DPM Was Beta Jayne taken within 24 hours: N/A Was Clonidine taken within 24 hours: N/A Last intake: Intake Last Liquid Date 06/09/21 Last Liquid Time 23:59 Last Solid Date 06/09/21 Last Solid Time 17:30 Social: Social History: No alcohol and No tobacco Exam: Pre-Anes Outpt Exam: alert, oriented x 3 and clear to auscultation bilaterally Airway: Submandibular: Other (small mouth) Cervical ROM: WNL MP: 3 Dentition: Chipped Additional comments: poor dentition History/ROS: No significant complaints Pulmonary: Pulmonary: Sleep apnea CV/HEM: CV/HEM: Afib, Arrythmia, HTN and PVD : : Chronic renal failure Metabolic: Metabolic: DM and Morbid obesity Musc/skel: Musc/skel: OA/DJD Anesthetic Plan: ASA status: 4 Anesthesia: Choice Risk of > 500 ml blood loss (7ml/kg in children): No Meds/Allergies Current Medications: Current Medications Generic Name Dose Route Start Last Admin Trade Name Freq PRN Reason Stop Dose Admin Allopurinol 300 mg 06/10/21 06:00 06/14/21 05:04 Allopurinol 300 Mg Tablet PO 300 mg QAM MARIANELA Administration Amlodipine Besylat e 10 mg 06/09/21 21:00 06/13/21 20:47 Amlodipine 10 Mg Tablet PO 10 mg BEDTIME MARIANELA Administration Aspirin 81 mg 06/09/21 21:00 06/13/21 20:47 Aspirin 81 Mg Ec Tablet PO 81 mg BEDTIME MARIANELA Administration Citalopram Hydrobr omide 20 mg 06/09/21 21:00 06/13/21 20:47 Citalopram 20 Mg Tablet PO 20 mg BEDTIME MARIANELA Administration Clonidine HCl 0.1 mg 06/09/21 18:00 06/14/21 09:10 Clonidine 0.1 Mg Tablet PO 0.1 mg BID MARIANELA Administration Cyclobenzaprine HC l 5 mg 06/09/21 15:58 06/12/21 04:02 Cyclobenzaprine 10 Mg Tablet PO 5 mg Q8H PRN Administration muscle spasms Heparin Sodium (Be ef Lung) 5,000 unit 06/09/21 20:00 06/13/21 08:03 Heparin 5,000 Un it/Ml Inj 1 Ml SUBCUT 5,000 unit Q12H MARIANELA Administration Ceftriaxone Sodium 2,000 mg/ 50 mls @ 100 mls/ hr 06/09/21 16:30 06/13/21 16:26 Sodium Chloride IV Infused Q24H MARIANELA Infusion Protocol Linezolid 600 mg in 300 mls @ 300 mls/hr 06/09/21 17:00 06/14/21 06:26 Zyvox Premix IV Infused Q12H MARIANELA Infusion Protocol Iron Sucrose 50 mg / Sodium 52.5 mls @ 105 ml s/hr 06/12/21 12:00 06/13/21 13:31 Chloride IV Infused Q24H MARIANELA Infusion Insulin Aspart 0 unit 06/09/21 18:00 06/14/21 09:10 Insulin Aspart 1 00 Unit/1 Ml SUBCUT 6 unit WM&BEDTIME MARIANELA Administration Protocol Levothyroxine Sodi um 175 mcg 06/10/21 06:00 06/14/21 05:04 Levothyroxine 17 5 Mcg Tablet PO 175 mcg QAM MARIANELA Administration Losartan Potassium 100 mg 06/09/21 21:00 06/13/21 20:47 Losartan 50 Mg T ablet PO 100 mg BEDTIME MARIANELA Administration Metoprolol Tartrat e 100 mg 06/09/21 21:00 06/14/21 09:10 Metoprolol Tartr ate 50 Mg Tablet PO 100 mg Q12H MARIANELA Administration Morphine Sulfate 2 mg 06/10/21 20:19 06/12/21 17:40 Morphine 4 Mg/Ml Sdv 1 Ml IVP 2 mg Q6H PRN Administration SEVERE PAIN Non-Formulary 3 each 06/13/21 18:00 06/14/21 09:10 Medication (Auryxi a PO 3 each 1 Gm 210mg Fe) TIDWM MARIANELA Administration Oxycodone/Acetamin ophen 1 tab 06/09/21 15:58 06/13/21 12:25 Oxycodone-Apap 5 -325 Mg Tablet PO 1 tab Q4H PRN Administration SEVERE PAIN Pantoprazole Sodiu m 40 mg 06/10/21 06:00 06/14/21 05:[address] 40 Mg Tablet PO 40 mg QAM MARIANELA Administration Peritoneal Dialysi s Solution 2,000 ml 06/09/21 14:00 06/14/21 09:26 Dianeal Low Ca W /2.5% Dex 2,000 Ml Bag INTRAPERIT 2,000 ml 5XD MARIANELA Administration Torsemide 100 mg 06/10/21 06:00 06/14/21 05:04 Torsemide 20 Mg Tablet PO 100 mg QAM MARIANELA Administration PFSH Anesthesia PFSH: Medical History Anemia Anemia Atrial fibrillation with RVR Atrial fibrillation, chronic Diabetes Diabetic neuropathy Elevated troponin End stage renal disease -on peritoneal dialysis Gout Hx of blood clots Hypertension Hypothyroidism Morbid obesity Peripheral vascular disease Surgical History Postoperative state Presence of Watchman left atrial appendage closure device S/P PICC central line placement with subsequest removal with thrombophlebitis Family History Other Cancer Family history non-contributory Social History Smoking and tobacco status: never smoked Alcohol intake: never Housing: House Supplemental PFSH Information: Reports vascular surgery on the right lower extremity by Dr. Hayward in [place] to increase blood flow. Data Anesthesia CBC & Chem 7: 06/14/21 02:23 06/14/21 02:23 Other Labs: Laboratory Results - last 48 hr 06/12/21 06/12/21 06/13/21 16:50 20:35 05:00 WBC 14.4 H RBC 2.66 L Hgb 8.1 L Hct 25.8 L MCV 97.0 H MCH 30.5 MCHC 31.4 RDW 14.5 Plt Count 163 MPV 10.6 H Neut % (Auto) 82.4 Lymph % (Auto) 5.3 Lake % (Auto) 8.9 Eos % (Auto) 2.3 Baso % (Auto) 0.1 Neut # (Auto) 11.86 H Lymph # (Auto) 0.8 Lake # (Auto) 1.3 H Eos # (Auto) 0.3 Baso # (Auto) 0.0 Nucleated RBC % (auto) 0 Nucleated RBCs # 0.0 Sodium Potassium Chloride Carbon Dioxide Anion Gap BUN Creatinine GFR Calculation Glucose POC Glucose 227 H 197 H Calculated Osmolality Calcium Magnesium 06/13/21 06/13/21 06/13/21 05:00 06:11 11:14 WBC RBC Hgb Hct MCV MCH MCHC RDW Plt Count MPV Neut % (Auto) Lymph % (Auto) Lake % (Auto) Eos % (Auto) Baso % (Auto) Neut # (Auto) Lymph # (Auto) Lake # (Auto) Eos # (Auto) Baso # (Auto) Nucleated RBC % (auto) Nucleated RBCs # Sodium 134 L Potassium 4.0 Chloride 95 L Carbon Dioxide 24 Anion Gap 19.0 BUN 62 H Creatinine 7.5 H* GFR Calculation 7.3 L Glucose 218 H POC Glucose 245 H 222 H Calculated Osmolality 302 H Calcium 9.2 Magnesium 1.7 06/13/21 06/13/21 06/14/21 17:10 20:55 02:23 WBC 13.7 H RBC 2.78 L Hgb 8.5 L Hct 26.2 L MCV 94.2 H MCH 30.6 MCHC 32.4 RDW 14.4 Plt Count 189 MPV 10.4 Neut % (Auto) 82.5 Lymph % (Auto) 5.6 Lake % (Auto) 8.7 Eos % (Auto) 1.9 Baso % (Auto) 0.1 Neut # (Auto) 11.25 H Lymph # (Auto) 0.8 Lake # (Auto) 1.2 H Eos # (Auto) 0.3 Baso # (Auto) 0.0 Nucleated RBC % (auto) 0 Nucleated RBCs # 0.0 Sodium Potassium Chloride Carbon Dioxide Anion Gap BUN Creatinine GFR Calculation Glucose POC Glucose 200 H 201 H Calculated Osmolality Calcium Magnesium 06/14/21 06/14/21 06/14/21 02:23 06:44 10:37 WBC RBC Hgb Hct MCV MCH MCHC RDW Plt Count MPV Neut % (Auto) Lymph % (Auto) Lake % (Auto) Eos % (Auto) Baso % (Auto) Neut # (Auto) Lymph # (Auto) Lake # (Auto) Eos # (Auto) Baso # (Auto) Nucleated RBC % (auto) Nucleated RBCs # Sodium 132 L Potassium 3.7 Chloride 91 L Carbon Dioxide 23 Anion Gap 21.7 H BUN 64 H Creatinine 7.6 H* GFR Calculation 7.2 L Glucose 158 H POC Glucose 242 H 197 H Calculated Osmolality 296 H Calcium 8.6 Magnesium Micro: Microbiology 06/09/21 10:30 Blood Culture - Final Blood NO GROWTH AFTER 5 DAYS 06/09/21 10:13 Blood Culture - Final Blood NO GROWTH AFTER 5 DAYS Cardiac Studies: No Data to Display
--- NOTE | 2021-06-14 11:53 | P.HPUD_ITS ---
Surgery/Procedure H&P Update DATE OF PROCEDURE: June 14, 2021 DATE H&P PERFORMED: 06/09/21 H&P UPDATE INFORMATION: I have reviewed H&P completed within last 30 days, I have examined patient prior to procedure, No changes to prior documentation and H&P is in [facility] EMR on date indicated PREOP DIAGNOSIS: Gangrene right foot, osteomyelitis right foot PLANNED PROCEDURE: Operation Date: 06/10/21 08:35 Proposed Procedures p Incision And Drainage right foot(Right) - Frankie Woodall DPM Operation Date: 06/14/21 12:00 Proposed Procedures p Delayed Wound Closure(Right) - Frankie Woodall DPM s Tendon Lengthening Foot(Right) - Frankie Woodall DPM
--- NOTE | 2021-06-14 12:49 | PC.NUTR ---
Nutrition assessment completed for 5D LOS. Recommend Renal dialysis consistent carb diet when diet resumed. However, noted that BUN and Cr remain elevated, question if lower protein on the nondialysis diet may be beneficial at this time. Also recommend check Phos level when appropriate. See full RD assessmet for further details.
--- NOTE | 2021-06-14 13:07 | P.OP_ITS ---
Operative Report Date of procedure: June 14, 2021 Pre-op Diagnosis: Gangrene right foot, osteomyelitis right foot, equinus right lower extremit Post-op diagnosis: same Post-op Findings: Same Procedure Done: Primary delayed closure and Achilles tendon lengthening right lower extremity Implants: 2-0 Vicryl and 4-0 nylon and 3-0 nylon Specimens removed/disposition: None Pathology: none sent Surgeon: Frankie Woodall D.P.M. Survey Research Analyst: Josemanuel Anesthesia: MAC Estimated blood loss: 5 mL Tourniquet time: No tourniquet utilized IV fluids: None Urine output: None Complications: None Findings: Devitalized tissue at the plantar flap. Condition: stable Disposition: floor Brief History: Patient is status post right transmet tarsal amputation date of operation June 10, 2021 secondary to gangrene. Presents for primary delayed closure with percutaneous triple hemisection right Achilles lengthening. Risks include pain, bleeding, numbness, persistent infection, surgical site dehiscence, delayed healing, wound care modalities, offloading, nonweightbearing status for prolonged period of time, Achilles rupture, need for antibiotic therapies, wound care therapies and need for possible higher level of amputation. Patient is agreeable wishes to proceed. Informed consent signed, initialed patient's right lower extremity, has been n.p.o. since midnight. No guarantees written, expressed or implied. Procedure: Under mild vision the patient was brought to the operating room and remained on the gurney in supine position. A timeout was performed. Anesthesia was then administered by the anesthesia service. Right lower extremity was scrubbed, prepped and draped utilizing normal aseptic technique. No tourniquet inflated during the duration of the procedure. Attention was directed to the right posterior Achilles near its insertion where 1.5 cm proximal to its insertion a medial hemisection was done percutaneously with a #15 blade followed by 1.5 cm proximal to this the lateral hemisection and then a final third percutaneous incision 1.5 cm proximal to the last was a medial hemisection and Achilles with lengthened and appreciated intraoperatively to have improved dorsiflexion. Incisions were flushed and closed with 4-0 nylon covered with an OpSite. Attention was then directed to the transmetatarsal amputation site of the right foot where plantar flap was excisionally sharply debrided down to and including subcutaneous tissue, deep fascia, tendon and muscle. Area was irrigated with pulse lavage all bleeders were ligated and cauterized as necessary. The plantar flap was then approximated dorsally and subcutaneous tissue and deep structures closed utilizing 2-0 Vicryl and skin closed utilizing 3-0 nylon. Patient tolerated procedure and anesthesia well, he was transferred to the PACU with vital signs stable and vascular status intact. Following a period of postoperative monitoring will be transferred back to the floor to continue antibiotic therapies plan for discharge potentially tomorrow.
--- NOTE | 2021-06-14 13:09 | P.PCN_ITS ---
PACU note PACU note: VSS, Good respiratory effort, report to CYBER OPS PLANNER Post-Anesthesia Exam: awake
--- NOTE | 2021-06-14 13:09 | PM.PACU ---
PACU note PACU note: VSS, Good respiratory effort, report to GENERAL MAINTENANCE HELPER Post-Anesthesia Exam: awake
--- NOTE | 2021-06-14 13:47 | PM.PN ---
Subjective Subjective: Interval history: Patient is scheduled for delayed wound closure today, Dr. Woodall to take him to the OR for the intervention Considering clean wound margins he will go home on long-term p.o. antibiotics, will outpatient follow-up with ID, wound care clinic and home health services He did got dialyzed yesterday Vitals/I&O/Wt Last Vital Signs Temp 97.7 F 06/14/21 13:06 Pulse 68 06/14/21 13:06 Resp 12 06/14/21 13:06 BP 83/59 06/14/21 13:06 Pulse Ox 96 06/14/21 13:06 06/13/21 06/14/21 06/14/21 22:59 06:59 14:59 Intake Total 590 / 1122.5 660 / 1782.5 0 / 0 Output Total 300 / 300 400 / 700 255 / 255 Balance 290 / 822.5 260 / 1082.5 -255 / -255 Weight last 48 hrs Weight 142.882 kg Weight 142.882 kg Weight 142.882 kg Physical Exam Narrative: EXAM NARRATIVE: Patient laying comfortably in his bed 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 S1, S2 Awake alert 20x3 GCS 15 No audible stridor or wheezing Right foot dressing not removed today morbid obesity No active complaints Left arm fistula Data : 06/14/21 02:23 06/14/21 02:23 Micro: Microbiology 06/09/21 10:30 Blood Culture - Final Blood NO GROWTH AFTER 5 DAYS 06/09/21 10:13 Blood Culture - Final Blood NO GROWTH AFTER 5 DAYS A&P Assessment and plan (1) Bullae: Status: Acute (2) History of transmetatarsal amputation of foot: Status: Acute (3) Charcot's arthropathy: Status: Acute (4) Peripheral vascular disease: Status: Acute (5) Hammertoe: Status: Acute Qualifiers: Laterality: bilateral Qualified Code(s): M20.41 - Other hammer toe(s) (acquired), right foot; M20.42 - Other hammer toe(s) (acquired), left foot (6) Septic thrombophlebitis of upper extremities: Status: Acute (7) DM type 2 (diabetes mellitus, type 2): Status: Acute Additional A&P Information Patient to be taken to the OR for delayed wound closure We will follow up with Dr. Woodall's recommendations Considering clean wound margins he will go home on p.o. antibiotics, ID recommendations appreciated Outpatient follow-up with ID and wound care, home health services at the time of discharge Consistent carb diet after the procedure Continue long-acting insulin along with sliding scale full code Start DVT prophylaxis 8 hours after the procedure Plan to discharge him tomorrow Attestations Medical Necessity Statement*: To continue medical management, delayed wound closure today Time Spent in Patient Care: less than 15 minutes Coding Level of Care Code Acute Service Parts Coordinator for [facility] Fwd Diagnoses Bullae R23.8 History of transmetatarsal amputation of foot Z89.439 Charcot's arthropathy M14.60 Peripheral vascular disease I73.9 Hammertoe M20.41; M20.42 Laterality: bilateral Septic thrombophlebitis of upper extremities I80.8 DM type 2 (diabetes mellitus, type 2) E11.9
--- NOTE | 2021-06-14 15:09 | P.PN_ITS ---
Subjective Subjective: Interval history: Seen after he came out of the OR after foot closure. PD went well yesterday. Minimal edema and no other other hypervolemic Sx. Bp looks good, no changes to his PD prescription Medications: Reviewed: Yes Vitals/I&O/Wt Last Vital Signs Temp 98.0 F 06/14/21 14:15 Pulse 61 06/14/21 14:15 Resp 14 06/14/21 14:15 BP 111/69 06/14/21 14:15 Pulse Ox 94 06/14/21 14:15 06/14/21 06/14/21 06/14/21 06:59 14:59 22:59 Intake Total 660 / 1782.5 0 / 0 Output Total 400 / 700 255 / 255 Balance 260 / 1082.5 -255 / -255 Weight last 48 hrs Weight 142.882 kg Weight 142.882 kg Weight 142.882 kg Weight 142.882 kg Physical Exam Narrative: EXAM NARRATIVE: Constitutional: Awake, comfortable HEENT: Wet mucosa, no jvp, non icteric Lungs: Bilaterally clear without discernible wheeze, rales in all lung zones CVS: S1 S2, no murmurs Abdo: Soft, BS ok Ext 4: Minimal edema, peripheral perfusion with no cyanosis, surgical dressing noted Neurological: Grossly non-focal Data : 06/14/21 02:23 06/14/21 02:23 Micro: Microbiology 06/09/21 10:30 Blood Culture - Final Blood NO GROWTH AFTER 5 DAYS 06/09/21 10:13 Blood Culture - Final Blood NO GROWTH AFTER 5 DAYS A&P Additional A&P Information 1. ESRD Cont PD with current prescription CAPD, 2.5% solution, 2L, 5/day. Home prescription is [facility]CP[facility], 8 hours on the cycler, three exchanges of 8 L, 2.5% and 1 day exchange of icodextrin. No changes today, CCPD going well. Dose medication for GFR less than fifteen on dialysis. 2. Status post TMA Postoperative day 4, S/p closure today Management per Podiatry, infectious disease, currently on antibiotics 3. Hemodynamics Blood pressure and pulse look stable. 4. Anemia iron sat 23%, will give some iv iron 50mg iv x 10 daily while here and I gave him EPO a few days ago 5. Chronic ESRD issues Continue home medication i.e. phosphorus binders, Levels can otherwise be monitored as an outpatient Thank you for consultation, as always it is a pleasure to follow these cases with you Pavel Urias MD Nephrology [phone] Patient seen and examined via telemedicine, with the assistance of the bedside RN > 25 min spent in evaluation and mgmt of patient Attestations Medical Necessity Statement*: Eval for ESRD mgmt Coding Level of Care Code Acute Director Of Global Marketing for [facility] [employer]
[2021-06-14] MEDS: cefTRIAXone 2,000 MG in sodium chloride 0.9% (plus) 50 ML 100 MG IV (16:18)
[2021-06-14] MEDS: iron polysaccharide complex 150 mg Capsule PO (16:18)
[2021-06-14] MEDS: doxycycline 100 mg Tablet PO (16:19)
[2021-06-14] MEDS: oxyCODONE-APAP 5-325 mg Tablet 1 TAB PO ×2 (16:23→20:22)
[2021-06-14 17:10] LABS: Glucose Point of Care 222 mg/dL (70-110)
[2021-06-14] MEDS: heparin 5,000 unit/mL INJ 1 mL 5000 UNIT SUBCUT (20:09)
[2021-06-14] MEDS: amlodipine 10 mg Tablet PO (20:09)
[2021-06-14] MEDS: citalopram 20 mg Tablet PO (20:09)
[2021-06-14] MEDS: losartan 50 mg Tablet 100 MG PO (20:09)
[2021-06-14] MEDS: aspirin 81 mg EC Tablet PO (20:09)
[2021-06-14 21:04] LABS: Glucose Point of Care 235 mg/dL (70-110)
[2021-06-15] VITALS (8 sets, daily range): BP systolic 109–120; BP diastolic 69–78; PULSE 77–94; RESP 16–18; TEMP 36.3–36.9; O2SAT 92–95
[2021-06-15] MEDS: Dianeal low Ca w/2.5% dex 2,000 mL Bag 2000 ML INTRAPERIT ×3 (02:30→10:23)
[2021-06-15 02:36] LABS: Basophils % 0.1 %; Eosinophils # 0.3 10^3/uL (0.0-0.8); Eosinophils % 1.9 %; Hematocrit 26.3 % (42.0-52.0); Hemoglobin 8.4 g/dL (11.7-16.6); Lymphocytes # 0.5 10^3/uL (0.8-4.8); Lymphocytes % 3.4 %; Mean Corpuscular HGB Conc 31.9 g/dL (30.0-36.0); Mean Corpuscular Hemoglobin 30.7 pg (28.0-34.0); Mean Platelet Volume 10.2 fL (7.4-10.4); Monocytes # 1.4 10^3/uL (0.2-0.9); Monocytes % 9.9 %; Neutrophils % 83.5 %; Nucleated Red Blood Cells % 0 %; Platelet Count 229 10^3/cmm (130-400); Red Blood Count 2.74 10^6/uL (4.1-5.3); Red Cell Distribution Width 14.6 % (12.1-15.1); White Blood Count 14.5 10^3/uL (4.0-10.0)
[2021-06-15 03:12] LABS: Anion Gap 21.9 (5-19); Blood Urea Nitrogen 64 mg/dL (8-23); Calcium 9.4 mg/dL (8.5-10.5); Carbon Dioxide 23 mmol/L (22-29); Chloride 94 mmol/L (98-107); Glomerular Filtration Rate 6.6 mL/min (90-130); Glucose 179 mg/dL (65-115); Osmolality Calculated 303 mOsm/kg (285-295); Potassium 3.9 mmol/L (3.5-5.1); Sodium 135 mmol/L (136-145)
[2021-06-15 03:13] LABS: Procalcitonin 0.69 ng/mL (0-0.5)
[2021-06-15] MEDS: allopurinol 300 mg Tablet PO (05:16)
[2021-06-15] MEDS: pantoprazole DR 40 mg Tablet PO (05:17)
[2021-06-15] MEDS: levothyroxine 175 mcg Tablet PO (05:17)
[2021-06-15] MEDS: TORSEmide 20 mg Tablet 100 MG PO (05:17)
[2021-06-15] MEDS: linezolid premix 600 MG/300 ML PREMIX 300 MG IV (05:19)
[2021-06-15 06:40] LABS: Glucose Point of Care 212 mg/dL (70-110)
[2021-06-15] MEDS: iron polysaccharide complex 150 mg Capsule PO (07:36)
[2021-06-15] MEDS: doxycycline 100 mg Tablet PO (07:36)
[2021-06-15] MEDS: ergocalciferol (vitamin D2) 50,000 Unit Capsule 50000 UNIT PO (07:36)
[2021-06-15] MEDS: metoprolol tartrate 50 mg Tablet 100 MG PO (07:36)
[2021-06-15] MEDS: heparin 5,000 unit/mL INJ 1 mL 5000 UNIT SUBCUT (07:37)
[2021-06-15] MEDS: cloNIDine 0.1 mg Tablet PO (07:37)
--- NOTE | 2021-06-15 07:40 | PM.PN ---
Subjective Subjective: Interval history: Infectious disease progress note Patient seen bedside this morning, is 1 day status post primary delayed closure and right Achilles lengthening. no fever, chills. Planned for discharge later today. Medications: Reviewed: Yes Vitals/I&O/Wt Last Vital Signs Temp 98.1 F 06/15/21 11:38 Pulse 77 06/15/21 11:38 Resp 18 06/15/21 11:38 BP 114/77 06/15/21 11:38 Pulse Ox 95 06/15/21 11:38 06/15/21 06/15/21 06/15/21 06:59 14:59 22:59 Intake Total 0 / 590 2540 / 2540 Output Total 450 / 980 2100 / 2100 Balance -450 / -390 440 / 440 Weight last 48 hrs Weight 142.882 kg Weight 142.882 kg Physical Exam Narrative: EXAM NARRATIVE: Chart reviewed and care discussed with hospitalist. Patient not examined. Data : 06/15/21 02:10 06/15/21 02:10 A&P Assessment and plan (1) Osteomyelitis: Qualifiers: Laterality: right Osteomyelitis location: foot Osteomyelitis type: other chronic Qualified Code(s): M86.671 - Other chronic osteomyelitis, right ankle and foot (2) Gangrene associated with type 2 diabetes mellitus: (3) Peripheral vascular disease: (4) ESRD (end stage renal disease): (5) Charcot's arthropathy: Additional A&P Information Currently admitted for gangrene and osteomyelitis, now s/p transmetatarsal. Outpatient cx from debridements with polymicrobial growth as charted on previous notes. Pathology from amputation remains pending, per op note and discussion with Dr. Woodall, margins appeared healthy and free of infection. Assuming that bony margins return clear of osteomyelitis, recommend a combination of oral ciprofloxacin 500mg q24h and Augmentin 500mg base BID for ~ 2 weeks after amputation, once signs of adequate wound healing are noted. If margins return positive, will likely need to continue rx for longer and likely switch to iv therapy. f/up in ID clinic on 07/05 Attestations Medical Necessity Statement*: per admitting note Coding Level of Care Code Acute Medical Doctor Nuclear Medicine for [facility] Fwd Diagnoses Osteomyelitis M86.671 Laterality: right Osteomyelitis location: foot Osteomyelitis type: other chronic Gangrene associated with type 2 diabetes mellitus E11.52 Peripheral vascular disease I73.9 ESRD (end stage renal disease) N18.6 Charcot's arthropathy M14.60
--- NOTE | 2021-06-15 08:09 | P.PN_ITS ---
Subjective Subjective: Interval history: Patient seen bedside this morning, is 1 day status post primary delayed closure and right Achilles lengthening. Doing well postoperatively. Has some soreness at the Achilles operative site. Denies any posterior calf pain. Patient denies any subjective nausea, vomiting, fever, chills, shortness of breath or chest pain. Vitals/I&O/Wt Last Vital Signs Temp 98.5 F 06/15/21 07:38 Pulse 88 06/15/21 07:38 Resp 16 06/15/21 07:38 BP 109/69 06/15/21 07:38 Pulse Ox 93 06/15/21 07:38 06/14/21 06/15/21 06/15/21 22:59 06:59 14:59 Intake Total 590 / 590 0 / 590 300 / 300 Output Total 275 / 530 450 / 980 Balance 315 / 60 -450 / -390 300 / 300 Weight last 48 hrs Weight 315 lb Weight 315 lb Weight 315 lb Weight 315 lb Physical Exam Narrative: EXAM NARRATIVE: VASCULAR: Dorsalis pedis and posterior tibial arteries palpable +1 bilaterally. Weak biphasic PT and DP pulses at the right foot. NEUROLOGICAL: Protective sensation intact 0/10 sites, tested with Gilmer Sergei monofilament to bilateral feet. DERMATOLOGICAL: Incision is is well coapted with sutures intact, no purulent drainage, no erythema and no warmth to the right transmetatarsal amputation site. Stable appearing bullae to the anterior right ankle without surrounding erythema, serous drainage no hemorrhaging. MUSCULOSKELETAL: Status post right transmetatarsal amputation. Data : 06/15/21 02:10 06/15/21 02:10 Micro: Microbiology 06/09/21 10:30 Blood Culture - Final Blood NO GROWTH AFTER 5 DAYS 06/09/21 10:13 Blood Culture - Final Blood NO GROWTH AFTER 5 DAYS A&P Assessment and plan (1) Peripheral vascular disease: Status: Acute (2) Non-pressure chronic ulcer of other part of right foot with necrosis of bone: Status: Acute (3) Diabetic peripheral neuropathy associated with type 2 diabetes mellitus: Status: Acute (4) Gangrene associated with type 2 diabetes mellitus: Status: Acute (5) ESRD (end stage renal disease): Status: Acute (6) Bullae: Status: Acute 66-year-old male with gangrene, end-stage renal disease, diabetes mellitus type 2 with peripheral polyneuropathy, history of osteomyelitis, has an acute gangrenous right second and third toe. Status post right transmetatarsal amputation date of operation 06/10/2021 Status post primary delayed closure and right Achilles lengthening date of operation 06/14/2021 Patient to remain nonweightbearing to the right lower extremity. Elevate right foot while at rest Patient okay for discharge from podiatry standpoint. He is to leave his current dressing on his right lower extremity intact until follow-up in podiatry clinic this 06/17/2021 at 3:15 PM. This will be his first dressing change, once again remain nonweightbearing. Attestations Medical Necessity Statement*: Gangrene right foot Coding Level of Care Code Acute Diesel Stationary Engineer for Breanna Aguero Diagnoses Peripheral vascular disease I73.9 Non-pressure chronic ulcer of other part of right foot with necrosis of bone L97.514 Diabetic peripheral neuropathy associated with type 2 diabetes mellitus E11.42 Gangrene associated with type 2 diabetes mellitus E11.52 ESRD (end stage renal disease) N18.6 Bullae R23.8
[2021-06-15 11:08] LABS: Glucose Point of Care 268 mg/dL (70-110)
--- NOTE | 2021-06-15 11:17 | PM.DCS ---
Discharge Providers Date of Admission: 06/09/21 11:51 Date of Discharge: June 15, 2021 Attending Provider at Admission: Chino Capellan MD Attending Provider at Discharge: Salvador Nguyen MD Primary Care Provider: Anmol Santiago Diagnoses at Discharge Discharge Diagnosis (1) Peripheral vascular disease: Status: Acute (2) Non-pressure chronic ulcer of other part of right foot with necrosis of bone: Status: Acute (3) Diabetic peripheral neuropathy associated with type 2 diabetes mellitus: Status: Acute (4) Gangrene associated with type 2 diabetes mellitus: Status: Acute (5) ESRD (end stage renal disease): Status: Acute (6) Bullae: Status: Acute Reason for Visit Reason for Visit: HYDRATION P/DR BARKLEY:ADMIT FOR SURGERY 06.10.21 Hospital Course Hospital Course Levi Bonilla is a 66 year old male with mutliple comorbidities including CKD on PD, severe PAD s/p multiple attempted peripheral vascular interventions, peripheral neuropathy, HTN, DM, history of MSSA group C strep osteomyelitis right foot August 2020, gas gangrene, underwent debridement & antibiotics, patient did develop septic thrombophlebitis from Pseudomonas septicemia from PICC line for which he received anticoagulation and 6 weeks of Levaquin based on susceptibility. He was seen at [place] as well for peripheral vascular disease by Dr. Hayward at [facility]. And he was put on IV ceftriaxone by infectious disease at [facility] by Dr. Camacho. (Kindly see ID note for further details) This time he was admitted to the hospital for transmetatarsal amputation secondary to gangrene and osteomyelitis of right foot. Previous culture positive for polymicrobial growth with MSSA Enterobacter, Enterococcus faecalis Bacteroides Status post right transmetatarsal amputation 06/10/21 Status post primary delayed closure right Achilles lengthening 06/14/2021 No postoperative complications Did undergo peritoneal dialysis during his hospitalization by telemetry nephro team He does have left arm fistula, he has been transitioned from hemodialysis to peritoneal dialysis Dr. Hackett recommended outpatient follow-up and long-term antibiotic regimen of ciprofloxacin and Augmentin Patient will follow up with Dr. 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 Weak biphasic PT and DP pulses at the right foot. NEUROLOGICAL: Protective sensation intact 0/10 sites, tested with Kinross Sergei monofilament to bilateral feet. DERMATOLOGICAL: Incision is is well coapted with sutures intact, no purulent drainage, no erythema and no warmth to the right transmetatarsal amputation site. Stable appearing bullae to the anterior right ankle without surrounding erythema, serous drainage no hemorrhaging. MUSCULOSKELETAL: Status post right transmetatarsal amputation Discharge Data Data Completed and Pending: Completed Studies During Hospitalization Category Date Time Status XR chest 1V ankur ble [id number] Stat Exams 06/09/21 09:39 Completed XR foot RT min 3V * [id number] Routine Exams 06/13/21 07:23 Completed XR foot RT min 3V * [id number] Stat Exams 06/09/21 09:38 Completed Pathology: Surgic al [PTH] Routine Pth 06/10/21 10:01 Completed Pending at discharge Category Date Time Status Erythrocyte Sedim entation Rate Rout ine Lab 06/14/21 14:30 Received Labs from last 24 hours 06/15/21 06/15/21 06/15/21 11:01 06:31 02:10 WBC RBC Hgb Hct MCV MCH MCHC RDW Plt Count MPV Neut % (Auto) Lymph % (Auto) [place] % (Auto) Eos % (Auto) Baso % (Auto) Neut # (Auto) Lymph # (Auto) [place] # (Auto) Eos # (Auto) Baso # (Auto) Nucleated RBC % (a uto) Nucleated RBCs # ESR Sodium 135 L Potassium 3.9 Chloride 94 L Carbon Dioxide 23 Anion Gap 21.9 H BUN 64 H Creatinine 8.2 H* GFR Calculation 6.6 L Glucose 179 H POC Glucose 268 H 212 H Calculated Osmolal ity 303 H Calcium 9.4 Procalcitonin 0.69 H 06/15/21 06/14/21 06/14/21 02:10 21:00 17:06 WBC 14.5 H RBC 2.74 L Hgb 8.4 L Hct 26.3 L MCV 96.0 H MCH 30.7 MCHC 31.9 RDW 14.6 Plt Count 229 MPV 10.2 Neut % (Auto) 83.5 Lymph % (Auto) 3.4 Fill[place] % (Auto) 9.9 Eos % (Auto) 1.9 Baso % (Auto) 0.1 Neut # (Auto) 12.10 H Lymph # (Auto) 0.5 L Fillmore # (Auto) 1.4 H Eos # (Auto) 0.3 Baso # (Auto) 0.0 Nucleated RBC % (a uto) 0 Nucleated RBCs # 0.0 ESR Sodium Potassium Chloride Carbon Dioxide Anion Gap BUN Creatinine GFR Calculation Glucose POC Glucose 235 H 222 H Calculated Osmolal ity Calcium Procalcitonin 06/14/21 14:30 WBC RBC Hgb Hct MCV MCH MCHC RDW Plt Count MPV Neut % (Auto) Lymph % (Auto) Fill[place] % (Auto) Eos % (Auto) Baso % (Auto) Neut # (Auto) Lymph # (Auto) Fill[place] # (Auto) Eos # (Auto) Baso # (Auto) Nucleated RBC % (a uto) Nucleated RBCs # ESR Pending Sodium Potassium Chloride Carbon Dioxide Anion Gap BUN Creatinine GFR Calculation Glucose POC Glucose Calculated Osmolal ity Calcium Procalcitonin Vitals: Last Vital Signs Temp 98.5 F 06/15/21 07:38 Pulse 77 06/15/21 10:27 Resp 18 06/15/21 10:00 BP 109/69 06/15/21 07:38 Pulse Ox 92 06/15/21 10:27 Discharge Plan Discharge Patient Disposition: Home Health Service Condition: Stable Prescriptions: New Augmentin 875-125 mg tablet 1 tab PO BID 28 Days Qty: 56 RF: 0 ciprofloxacin HCl 500 mg tablet 500 mg PO BID 28 Days Qty: 56 RF: 0 oxycodone 5 mg capsule 5 mg PO Q8H PRN (Reason: pain) Qty: 10 RF: 0 Senna Plus 8.6-50 mg capsule 1 tab-cap PO DAILY Qty: 10 RF: 0 Continued (DME) Cam Walker See Rx Instructions .ROUTE .MEDSUPPLY Qty: 1 RF: 0 amlodipine 10 mg tablet 10 mg PO BEDTIME RF: 0 cyclobenzaprine 10 mg tablet 5 mg PO Q8H PRN (Reason: muscle spasms) RF: 0 torsemide 100 mg tablet 100 mg PO QAM RF: 0 ergocalciferol (vitamin D2) 1,250 mcg (50,000 unit) capsule 1,250 mcg PO Q7D RF: 0 losartan 100 mg tablet 100 mg PO BEDTIME RF: 0 citalopram 20 mg tablet 20 mg PO BEDTIME RF: 0 pantoprazole 40 mg tablet,delayed release (DR/EC) 40 mg PO QAM RF: 0 allopurinol 300 mg tablet 300 mg PO QAM RF: 0 clonidine HCl 0.1 mg tablet 0.1 mg PO BID RF: 0 paricalcitol [Zemplar] 1 mcg Capsule 1 mcg PO .FIVE TIMES A WEEK RF: 0 polysaccharide iron complex [Ferrex 150] 150 mg iron capsule 150 mg PO BID RF: 0 levothyroxine 175 mcg tablet 175 mcg PO QAM RF: 0 aspirin 81 mg Tablet,Delayed Release (Dr/Ec) 81 mg PO BEDTIME RF: 0 Fish Oil 1 cap PO BID RF: 0 Renal Factor Plus 1 tab PO DAILY RF: 0 Auryxia 210 mg iron Tablet 630 mg PO .WITH EACH MEAL RF: 0 metoprolol tartrate 100 mg Tablet 100 mg PO Q12H RF: 0 glipizide 5 mg tablet 5 mg PO QAM RF: 0 Discontinued doxycycline hyclate 100 mg capsule 100 mg PO BID 14 Days Qty: 28 RF: 0 Discharge Orders: Discharge Order (Routine); Ordered 06/15/21 Ordered By: Salvador Nguyen Referrals: Anmol Santiago [Primary Care Provider] - 06/20/21 3:40 pm Frankie Barkley DPM [Physician] - 06/17/21 3:15 pm Day Hackett MD [Hospitalist] - 07/05/21 Discharge Diet: Diabetic Discharge Activity: As per PT/OT instructions Patient Instructions: Opioid Safety Activity Restrictions/Additional Instructions: Patient is to leave his current dressing on his right lower extremity intact until follow-up in podiatry clinic this 06/17/2021 at 3:15 PM. This will be his first dressing change, once again remain nonweightbearing. Discharge Attestations Time Spent in Discharge Care*: less than 30 min Status at Discharge: Cognitive status at discharge: cognitively intact, Behavioral status at discharge: cooperative, Quality Metrics Clinical Quality Measures During this hospital stay, did patient experience: None Coding Level of Care Code Acute Chg FW DC note Diagnoses Peripheral vascular disease I73.9 Non-pressure chronic ulcer of other part of right foot with necrosis of bone L97.514 Diabetic peripheral neuropathy associated with type 2 diabetes mellitus E11.42 Gangrene associated with type 2 diabetes mellitus E11.52 ESRD (end stage renal disease) N18.6 Bullae R23.8
[2021-06-15 13:28] LABS: Erythrocyte Sedimentation Rate 129 mm/hr (0-10)
--- NOTE | 2021-06-16 08:39 | PC.SOCIAL ---
discharge follow up call made, spoke with . she reports patient is still sleeping but doing well. picked up all medications from the pharmacy and patient is taking as directed. [facility] called and will be out to set up visits. is aware of follow up appointment dates and times. Discussed dressing instructions, to leave in place until follow up with Dr. Woodall on 06-17. denies any questions or concerns.
== END 2021-06-15 13:14 | disposition home health service (06) | DRG 239 ==
LOC: ER 12:17 → MEDSURG 14:00
PROVIDERS: Internal Medicine; Internal Medicine Nephrology; Podiatrist Foot & Ankle Surgery; Student in an Organized Health Care Education/Training Program; Admitting Provider Internal Medicine; Emergency Provider Family Medicine; PCP Physician Assistant Medical; Visit Provider Internal Medicine
PROC: 0Y6M0Z9 Detachment at Right Foot, Partial 1st Ray, Open Approach (ICD-10-PCS; principal; 2021-06-10 08:30)
PROC: 0JQQ0ZZ Repair Right Foot Subcutaneous Tissue and Fascia, Open Approach (ICD-10-PCS; CPT 13160; principal; 2021-06-14 12:00)
PROC: 0JQQ0ZZ Repair Right Foot Subcutaneous Tissue and Fascia, Open Approach (ICD-10-PCS; CPT 28261; 2021-06-14 12:00)
DX: E11.52 Type 2 diabetes mellitus with diabetic peripheral angiopathy with gangrene (principal); N18.6 End stage renal disease; I96 Gangrene, not elsewhere classified; M86.9 Osteomyelitis, unspecified; I12.0 Hypertensive chronic kidney disease with stage 5 chronic kidney disease or end stage renal disease; I48.20 Chronic atrial fibrillation, unspecified; E11.69 Type 2 diabetes mellitus with other specified complication; E11.51 Type 2 diabetes mellitus with diabetic peripheral angiopathy without gangrene; E11.22 Type 2 diabetes mellitus with diabetic chronic kidney disease; Z99.2 Dependence on renal dialysis; R23.8 Other skin changes; E11.621 Type 2 diabetes mellitus with foot ulcer; L97.514 Non-pressure chronic ulcer of other part of right foot with necrosis of bone; Z79.01 Long term (current) use of anticoagulants; Z20.822 Contact with and (suspected) exposure to COVID-19; D63.1 Anemia in chronic kidney disease
CPT/HCPCS: 36415; 36416; 71045; 73630; 80048; 80053; 81001; 81003; 82962; 83540; 83550; 83735; 84145; 85025; 85651; 86140; 87040; 87635; 88307; 88311; 93005; 96360; 96372; 96374; 99285; J0696; J1644; J1756; J1815; J2020; J2250; J2270; J2704; J3010; J7030; Q3014; Q4081

== ENCOUNTER → 2021-07-01 15:01 | Outpatient (BNVA) | payer MEDICARE, OTHER, SELFPAY | PROVIDERS: PCP Physician Assistant Medical; Visit Provider Podiatrist Foot & Ankle Surgery | DX: Z48.89 Encounter for other specified surgical aftercare (principal) | CPT/HCPCS: 73630 ==

== ENCOUNTER → 2021-07-05 12:53 | Outpatient (BNVA) | payer MEDICARE, OTHER, SELFPAY | PROVIDERS: PCP Physician Assistant Medical; Visit Provider Student in an Organized Health Care Education/Training Program | DX: T87.81 Dehiscence of amputation stump (principal) | CPT/HCPCS: 87070; 87075; 87077; 87184; 87205 ==

== ENCOUNTER 2021-07-06 18:05 | Inpatient (IN) | payer MEDICARE, OTHER, SELFPAY ==
[2021-07-06 18:48] VITALS: BMI 42.7
--- NOTE | 2021-07-06 19:21 | P.HP_ITS ---
Providers/Chief Complaint Admitting Physician: Kory Sosa MD Primary Care Provider: Frankie Woodall DPM Chief Complaint: FOOT WOUND History of Present Illness Levi Bonilla is a 66 year old male who presented to [facility] today at the podiatry clinic for follow-up. He has a history of osteomyelitis and gangrene of the right foot and underwent transmetatarsal amputation on June 10 with delayed closure and Achilles lengthening on June 14. He had polymicrobial cultures and has been on Augmentin and Cipro outpatient with last dose is taken this morning. He has known severe peripheral vascular disease and has required intervention on the right lower extremity in November of this year. Unfortunately he has developed wound dehiscence at the site of surgery earlier this month. He denies any fever. He is always cold, not any worse lately. No nausea or vomiting. No diarrhea. He occasionally has shooting pains in the right foot but no escalation lately. He has been following nonweightbearing status and other instructions as per Dr. Woodall. Was sent for direct admission by Dr. Woodall for initiation of IV antibiotics and planned surgical intervention with wound VAC placement on 07/08. Currently without acute complaints. Right foot is dressed from clinic. Review of Systems Const: Denies: fever(s) or chills ENMT: Denies: throat pain or nasal congestion Card: Denies: chest pain or palpitations Resp: Denies: dyspnea or chest congestion GI: Denies: abdominal pain, nausea, vomiting, diarrhea, constipation, hematochezia or melena Musc: Reports: extremity pain (Occasional right foot) Skin/Breast: Reports: sores; Denies: pruritus Neuro: Reports: numbness in extremities (Not new) and other (Currently nonweightbearing right lower extremity); Denies: weakness in extremities or frequent falls Psych: Denies: anxiety or depression Edmundo/Lymph: Denies: easy bruising or easy bleeding Medications/Allergies Home Medications Medication Instructions Recorded Confirmed Last Taken Type allopurinol 300 mg PO QAM 08/11/20 07/06/21 06/09/21 07:30 History citalopram 20 mg PO BEDTIME 08/11/20 07/06/21 06/08/21 History clonidine HCl 0.1 mg PO BID 08/11/20 07/06/21 06/09/21 07:30 History cyclobenzaprine 5 mg PO Q8H PRN 08/11/20 07/06/21 09/26/20 History ergocalciferol (vitamin D2) 1,250 mcg PO Q7D 08/11/20 07/06/21 06/08/21 History losartan 100 mg PO BEDTIME 08/11/20 07/06/21 06/08/21 History pantoprazole 40 mg PO QAM 08/11/20 07/06/21 06/09/21 07:30 History paricalcitol [Zemplar] 1 mcg PO .FIVE TIMES A WEEK 08/11/20 07/06/21 06/09/21 07:30 History torsemide 100 mg PO QAM 08/11/20 07/06/21 06/09/21 07:30 History polysaccharide iron complex 150 mg PO BID 09/27/20 07/06/21 06/09/21 07:30 History [Ferrex 150] amlodipine 10 mg tablet 10 mg PO BEDTIME tab 10/14/20 07/06/21 06/08/21 History Auryxia 630 mg PO .WITH EACH MEAL 11/25/20 07/06/21 06/08/21 History glipizide 5 mg PO QAM 11/26/20 07/06/21 06/09/21 07:30 History metoprolol tartrate 100 mg PO Q12H 11/26/20 07/06/21 06/09/21 07:30 History Cam Magno #1 ea NS 05/03/21 07/06/21 Unknown Rx Fish Oil 1 cap PO BID 06/09/21 07/06/21 06/09/21 07:30 History Renal Factor Plus 1 tab PO DAILY 06/09/21 07/06/21 Unknown History aspirin 81 mg PO BEDTIME 06/09/21 07/06/21 06/08/21 History levothyroxine 175 mcg PO QAM 06/09/21 07/06/21 06/09/21 History amoxicillin-pot clavulanate 1 tab PO BID 28 Days #56 tab 06/15/21 07/06/21 Unknown Rx [Augmentin] ciprofloxacin HCl 250 mg PO BID 28 Days #56 tab 06/15/21 07/06/21 Unknown Rx oxycodone 5 mg PO Q8H PRN #10 cap 06/15/21 07/06/21 Unknown Rx sennosides-docusate sodium [Senna 1 tab-cap PO DAILY #10 cap 06/15/21 07/06/21 Unknown Rx Plus] Allergies Allergy/AdvReac Type Severity Reaction Status Date / Time No Known Allergies Allergy Verified 07/06/21 16:21 PFSH Acute PFSH: Medical History (Updated 07/06/21 @ 21:35 by Chantal Posey MD) Anemia Arteriovenous fistula of left upper extremity on peritoneal dialysis, not being used Atrial fibrillation, chronic Charcot's arthropathy 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 Critical limb ischemia with history of revascularization of same extremity (11/2020) Diabetic neuropathy DM type 2 (diabetes mellitus, type 2) End stage renal disease on peritoneal dialysis Gout Hammertoe Hx of blood clots Hypertension Hypothyroidism Morbid obesity Osteomyelitis (08/2020) right foot, MSSA and Group C strep Peripheral vascular disease severe Septic thrombophlebitis of upper extremities (07/06/21) related to PICC line Septicemia, Pseudomonas (09/2020) Surgical History (Updated 07/06/21 @ 19:42 by Chantal Posey MD) 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 Woodall Peritoneal dialysis catheter in place Presence of Watchman left atrial appendage closure device S/P PICC central line placement with subsequent removal due to thrombophlebitis and RIJ DVT Family History Other Cancer Family history non-contributory Social History (Updated 07/06/21 @ 21:52 by Chantal Posey MD) Smoking and tobacco status: never smoked Alcohol intake: former Former alcohol use details: use to drink occassionally, none in years Substance/Drug Use: never Lives independently: Yes Housing: House Physical Exam Narrative: EXAM NARRATIVE: Constitutional: Awake and alert, oriented x3, cooperative HEENT: Normocephalic, extraocular movements are intact, moist mucous membranes Neck: Large but supple Respiratory: Clear to auscultation bilaterally Cardiovascular: Irregular rhythm Abdomen: Soft, nontender, peritoneal dialysis catheter in place with no surrounding erythema Extremities: Right lower extremity dressed and splinted from pretibial area to foot, not currently examined. Trace edema in the pretibial area on the right. Trace edema in the left lower extremity. Skin: Scabbed over sore laterally at right second DIP. Hyperkeratotic blister over third PIP on the right hand. Superficial layer healing wound at right pretibial area. Scabbed over sore medial heel on the left. Chronic stasis changes apparent left lower extremity and visible right lower extremity. Neuro: Speech clear, face symmetric, moves all extremities Psych: Normal affect Data : 07/06/21 20:15 07/06/21 20:15 Other Labs: RIGHT FOOT WOUND CULTURE from clinic 07/06/2021 Gram Stain Final 07/06/21-1900 Result RARE WHITE BLOOD CELLS HEAVY GRAM NEGATIVE RODS FEW GRAM POSITIVE COCCI IN PAIRS & CHAINS Wound Culture PENDING A&P Assessment and plan (1) Dehiscence of amputation stump: Right foot with evidence of recurrent infection Status: Acute (2) History of transmetatarsal amputation of foot: 06/10/21 with delayed closure on 06/14/2021 Performed due to osteomyelitis and gangrene of the right forefoot with polymicrobial cultures Has been on oral Augmentin and Cipro outpatient Status: Chronic (3) Needs peripherally inserted central catheter (PICC): requires jugular approach via interventional radiology which is not available at this facility Status: Acute (4) End stage renal disease: On peritoneal dialysis Status: Chronic (5) Atrial fibrillation, chronic: Currently with A. fib with RVR, believed secondary to not having evening medication plus Impact of impending sepsis Status: Chronic (6) Hypertension: Currently with low normal blood pressures Usually on amlodipine, clonidine, losartan, metoprolol, torsemide Status: Chronic Qualifiers: Hypertension type: essential hypertension Qualified Code(s): I10 - Essential (primary) hypertension (7) DM type 2 (diabetes mellitus, type 2): Chronically on glipizide Status: Chronic Qualifiers: Diabetes mellitus buttermaker continuous churn insulin use: without buttermaker continuous churn use Diabetes mellitus complication detail: with polyneuropathy Diabetes mellitus complication status: with neurologic complications Qualified Code(s): E11.42 - Type 2 diabetes mellitus with diabetic polyneuropathy (8) Anemia: With drop in hemoglobin compared to previous values, likely component of chronic inflammation from wounds as well Status: Chronic Qualifiers: Anemia type: due to chronic kidney disease Chronic kidney disease stage: on chronic dialysis Qualified Code(s): N18.6 - End stage renal disease; D63.1 - Anemia in chronic kidney disease; Z99.2 - Dependence on renal dialysis (9) Peripheral vascular disease: Severe, has required previous intervention, chronically on aspirin Status: Chronic Additional A&P Information History of gout on allopurinol Hypothyroidism on levothyroxine History of depression on citalopram Chronic pain on as needed Flexeril and oxycodone Chronic PPI use Inpatient admission We will initiate linezolid and Levaquin after review of prior cultures Blood cultures, CRP, lactic acid Consultation to Dr. Goodman Flynn PCR secondary to planned surgery ordered, although patient is currently refusing to be tested Baseline labs Nephrology consultation for peritoneal dialysis -I have spoken with Dr. Messer EKG and telemetry monitoring Resume a lower dose of home metoprolol Presently hold amlodipine, losartan and torsemide secondary to borderline blood pressures As needed clonidine rather than scheduled for same reason Sliding scale insulin for diabetes Currently holding glipizide Continue home iron, monitor hemoglobin for further drop Continue home aspirin Continue home allopurinol Continue home levothyroxine Continue home citalopram Continue home pain control Lactobacillus Currently holding PPI secondary to high risk of C. difficile Subcu heparin for DVT prophylaxis Continue home laxative therapy Supportive care otherwise Plans were discussed with patient he was given an opportunity to ask questions Full code Attestations Medical Necessity Statement*: Anticipated stay greater than 2 midnights in a gentleman with complex history as described needing IV antibiotics and surgical intervention. Coding Level of Care Code Acute Nuclear Technologist for [facility] Fwd Diagnoses Dehiscence of amputation stump T87.81 History of transmetatarsal amputation of foot Z89.439 Needs peripherally inserted central catheter (PICC) Z45.2 End stage renal disease N18.6 Atrial fibrillation, chronic I48.20 Hypertension I10 Hypertension type: essential hypertension DM type 2 (diabetes mellitus, type 2) E11.42 Diabetes mellitus buttermaker continuous churn insulin use: without residential use Diabetes mellitus complication detail: with polyneuropathy Diabetes mellitus complication status: with neurologic complications Anemia N18.6; D63.1; Z99.2 Anemia type: due to chronic kidney disease Chronic kidney disease stage: on chronic dialysis Peripheral vascular disease I73.9
[2021-07-06 19:52] VITALS: PULSE 98
[2021-07-06 20:00] VITALS: BP 103/74; PULSE 134; RESP 17; TEMP 37.3; O2SAT 93
[2021-07-06 20:38] LABS: Basophils % 0.1 %; Eosinophils # 0.5 10^3/uL (0.0-0.8); Eosinophils % 3.9 %; Hematocrit 23.4 % (42.0-52.0); Hemoglobin 7.6 g/dL (11.7-16.6); Lymphocytes # 0.6 10^3/uL (0.8-4.8); Lymphocytes % 4.4 %; Mean Corpuscular HGB Conc 32.5 g/dL (30.0-36.0); Mean Corpuscular Volume 95.5 fl (80-94); Mean Platelet Volume 9.9 fL (7.4-10.4); Monocytes # 1.3 10^3/uL (0.2-0.9); Monocytes % 9.6 %; Neutrophils # 11.29 10^3/uL (1.8-7.7); Neutrophils % 81.1 %; Nucleated Red Blood Cells % 0 %; Platelet Count 244 10^3/cmm (130-400); Red Blood Count 2.45 10^6/uL (4.1-5.3); Red Cell Distribution Width 14.7 % (12.1-15.1); White Blood Count 13.9 10^3/uL (4.0-10.0)
--- NOTE | 2021-07-06 21:10 | PC.NURSE ---
i reported high pulse 134 to nurse
[2021-07-06] MEDS: heparin 5,000 unit/mL INJ 1 mL 5000 UNIT SUBCUT (21:12)
--- NOTE | 2021-07-06 21:25 | P.CONIM_ITS ---
Providers/Reason For Consult Consulting Physician/Specialty*: rod jones md / telenephrology Reason for Consult*: ESRD care Attending Physician: Kory Sosa MD Primary Care Provider: Frankie Woodall DPM History of Present Illness History of Present Illness Levi Bonilla is a 66 year old male DM, ESRD on CCPD, recent RT TMA on 06-10-21 for osteomyelitis. He has wound dehiscence and continues to have purulent drainage and following up w/ Dr. Woodall and Dr. Day Hackett. The pt was admitted for IV abx and further surgery. renal called to provide PD and ESRD care. Review of Systems General: Reports: 10 or more systems reviewed and unremarkable except in HPI and below Narrative: weak, drainage by wound site. + fevers. no bhakta, no cp, no sob, no abd pain. denies fevers. bP okay Meds/Allergies Home Medications and Allergies Home Medications Medication Instructions Recorded Confirmed Last Taken Type allopurinol 300 mg PO QAM 08/11/20 07/06/21 06/09/21 07:30 History citalopram 20 mg PO BEDTIME 08/11/20 07/06/21 06/08/21 History clonidine HCl 0.1 mg PO BID 08/11/20 07/06/21 06/09/21 07:30 History cyclobenzaprine 5 mg PO Q8H PRN 08/11/20 07/06/21 09/26/20 History ergocalciferol (vitamin D2) 1,250 mcg PO Q7D 08/11/20 07/06/21 06/08/21 History losartan 100 mg PO BEDTIME 08/11/20 07/06/21 06/08/21 History pantoprazole 40 mg PO QAM 08/11/20 07/06/21 06/09/21 07:30 History paricalcitol [Zemplar] 1 mcg PO .FIVE TIMES A WEEK 08/11/20 07/06/21 06/09/21 07:30 History torsemide 100 mg PO QAM 08/11/20 07/06/21 06/09/21 07:30 History polysaccharide iron complex 150 mg PO BID 09/27/20 07/06/21 06/09/21 07:30 History [Ferrex 150] amlodipine 10 mg tablet 10 mg PO BEDTIME tab 10/14/20 07/06/21 06/08/21 History Auryxia 630 mg PO .WITH EACH MEAL 11/25/20 07/06/21 06/08/21 History glipizide 5 mg PO QAM 11/26/20 07/06/21 06/09/21 07:30 History metoprolol tartrate 100 mg PO Q12H 11/26/20 07/06/21 06/09/21 07:30 History Cam Walker #1 ea NS 05/03/21 07/06/21 Unknown Rx Fish Oil 1 cap PO BID 06/09/21 07/06/21 06/09/21 07:30 History Renal Factor Plus 1 tab PO DAILY 06/09/21 07/06/21 Unknown History aspirin 81 mg PO BEDTIME 06/09/21 07/06/21 06/08/21 History levothyroxine 175 mcg PO QAM 06/09/21 07/06/21 06/09/21 History amoxicillin-pot clavulanate 1 tab PO BID 28 Days #56 tab 06/15/21 07/06/21 Unknown Rx [Augmentin] ciprofloxacin HCl 250 mg PO BID 28 Days #56 tab 06/15/21 07/06/21 Unknown Rx oxycodone 5 mg PO Q8H PRN #10 cap 06/15/21 07/06/21 Unknown Rx sennosides-docusate sodium [Senna 1 tab-cap PO DAILY #10 cap 06/15/21 07/06/21 Unknown Rx Plus] Allergies Allergy/AdvReac Type Severity Reaction Status Date / Time No Known Allergies Allergy Verified 07/06/21 16:21 Current Medications Current Medications Generic Name Dose Route Start Last Admin Trade Name Freq PRN Reason Stop Dose Admin Heparin Sodium (Porcine) 5,000 unit 07/06/21 20:00 07/06/21 21:12 Heparin 5,000 Unit/Ml Inj 1 Ml SUBCUT 5,000 unit Q12H MARIANELA Administration PFSH Acute PFSH: Medical History (Updated 07/06/21 @ 21:35 by Chantal Posey MD) Anemia Arteriovenous fistula of left upper extremity on peritoneal dialysis, not being used Atrial fibrillation, chronic Charcot's arthropathy 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 Critical limb ischemia with history of revascularization of same extremity (11/2020) Diabetic neuropathy DM type 2 (diabetes mellitus, type 2) End stage renal disease on peritoneal dialysis Gout Hammertoe Hx of blood clots Hypertension Hypothyroidism Morbid obesity Osteomyelitis (08/2020) right foot, MSSA and Group C strep Peripheral vascular disease severe Septic thrombophlebitis of upper extremities (07/06/21) related to PICC line Septicemia, Pseudomonas (09/2020) Surgical History (Updated 07/06/21 @ 19:42 by Chantal Posey MD) 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 Woodall Peritoneal dialysis catheter in place Presence of Watchman left atrial appendage closure device S/P PICC central line placement with subsequent removal due to thrombophlebitis and RIJ DVT Family History Other Cancer Family history non-contributory Social History Alcohol intake: never Housing: House Vitals/I&O/Wt Last Vital Signs Temp 99.2 F 07/06/21 20:00 Pulse 134 H 07/06/21 20:00 Resp 17 07/06/21 20:00 BP 103/74 07/06/21 20:00 Pulse Ox 93 07/06/21 20:00 Weight last 48 hrs Weight 142.882 kg Physical Exam Narrative: EXAM NARRATIVE: comfortable in bed, NARD vs noted Tchycardic- irreg irreg Heent- nc/at, eomi, anicteric neck- no jvp lung clear b/l heart- irreg irreg, +RUBENS abd soft, nt, nd, +BS. rt sided PD catheter c/d/i exit site ext - rt TMA bandaged, minimal edema neuro- a,a, o x 3 Data Micro: Micro: Microbiology 07/06/21 20:15 Blood Culture - Pr eliminary Blood SPECIMEN [facility] JAY JAY 07/06/21 20:22 Blood Culture - Pr eliminary Blood SPECIMEN [facility] JAY JAY A&P Additional A&P Information 66 yr old man 1. OM- s/p RT TMA- still with discharge and wound dehiscence- iv abx and further surgery per surgery- plan OR on Sunday -h/o MSSA and strep OM -assess for bacteremia and full ID eval per medicine 2. ESRD-CCPD at home- Home prescription is CCPD, 8 hours on the cycler, three exchanges of 8 L, 2.5% and 1 day exchange of icodextrin. In hospital we will do CAPD. Pamela in a fib w/ RVR- will be gentle- CAPD 4 exchanges a day w/ 1.25% gluc -[place] PAN AVF- was on HD in the past 3. a fib per medicine 4. anemia- check iron studies- avoid iv iron w/ active infection -EPO 5. DM control 6. BP low- hold BP meds 7. hypothyroidism on levothyroxine- check tsh 8. gout - check uric acid level. dec allopurinol to 100 mgm po daily as ESRD Patient seen and examined via telemedicine, with the assistance of the bedside RN 50 min spent in evaluation and mgmt of patient discussed w/ Dr. Posey -informed consent obtained for telehealth visit Consult Attestations Medical Necessity Statement: per medicine Time Spent in Patient Care: Greater than 35 minutes (>than 50% of time spent in counselling and/or direct pt care on unit) . Coding Level of Care Code Acute Food Service Hotel Runner for Breanna Aguero
[2021-07-06 21:39] LABS: Alanine Aminotransferase 19 U/L (0-41); Albumin Level 2.7 g/dL (3.5-5.2); Alkaline Phosphatase 142 IU/L (40-130); Anion Gap 19.9 (5-19); Aspartate Amino Transferase 10 U/L (0-40); Blood Urea Nitrogen 60 mg/dL (8-23); C Reactive Protein 120.2 mg/L (0.0-4.9); Carbon Dioxide 22 mmol/L (22-29); Chloride 93 mmol/L (98-107); Globulin 3.8 g/dL (1.3-4.6); Glomerular Filtration Rate 7.4 mL/min (90-130); Glucose 212 mg/dL (65-115); Osmolality Calculated 295 mOsm/kg (285-295); Potassium 3.9 mmol/L (3.5-5.1); Sodium 131 mmol/L (136-145); Total Bilirubin 0.3 mg/dL (0.15-1.2); Total Protein 6.5 g/dL (6.6-8.7)
[2021-07-06 21:40] LABS: Lactic Sepsis W/Reflex 1.8 mmol/L (0.5-2.2)
--- NOTE | 2021-07-06 21:53 | PC.NURSE ---
pt refused covid swab, Dr. Posey aware
[2021-07-06] MEDS: atorvastatin 40 mg Tablet 20 MG PO (22:28)
[2021-07-06] MEDS: levofloxacin-dextrose 5 % 750 MG/150 ML PREMIX 100 MG IV (22:29)
[2021-07-07] VITALS (9 sets, daily range): BP systolic 119–163; BP diastolic 56–82; PULSE 88–108; RESP 17–19; TEMP 36.7–37.5; O2SAT 90–99
[2021-07-07] MEDS: oxyCODONE 5 mg IR Tab/Cap PO ×2 (00:06→12:51)
[2021-07-07] MEDS: linezolid premix 600 MG/300 ML PREMIX 300 MG IV ×3 (00:07→22:31)
[2021-07-07 03:59] LABS: Basophils % 0.1 %; Eosinophils # 0.7 10^3/uL (0.0-0.8); Eosinophils % 4.9 %; Hematocrit 24.3 % (42.0-52.0); Hemoglobin 7.5 g/dL (11.7-16.6); Lymphocytes # 0.9 10^3/uL (0.8-4.8); Lymphocytes % 6.8 %; Mean Corpuscular HGB Conc 30.9 g/dL (30.0-36.0); Mean Corpuscular Volume 97.2 fl (80-94); Mean Platelet Volume 9.9 fL (7.4-10.4); Monocytes # 1.7 10^3/uL (0.2-0.9); Monocytes % 11.9 %; Neutrophils # 10.43 10^3/uL (1.8-7.7); Neutrophils % 75.2 %; Nucleated Red Blood Cells % 0 %; Platelet Count 232 10^3/cmm (130-400); Red Cell Distribution Width 14.8 % (12.1-15.1); White Blood Count 13.9 10^3/uL (4.0-10.0)
[2021-07-07 04:24] LABS: INR 1.16 (0.8-1.2)
[2021-07-07 04:25] LABS: Partial Thromboplastin Time 35.6 SECONDS (23.9-36.7)
[2021-07-07 04:38] LABS: Anion Gap 16.8 (5-19); Blood Urea Nitrogen 62 mg/dL (8-23); Carbon Dioxide 25 mmol/L (22-29); Chloride 91 mmol/L (98-107); Glomerular Filtration Rate 6.9 mL/min (90-130); Glucose 170 mg/dL (65-115); Magnesium 1.7 mg/dL (1.7-2.3); Osmolality Calculated 290 mOsm/kg (285-295); Phosphorus 5.2 mg/dL (2.5-4.5); Potassium 3.8 mmol/L (3.5-5.1); Sodium 129 mmol/L (136-145); Thyroid Stimulating Hormone 3.14 uIU/mL (0.27-4.20)
--- NOTE | 2021-07-07 06:30 | P.CONIM_ITS ---
Providers/Reason For Consult Consulting Physician/Specialty*: Frankie Woodall D.P.M. Reason for Consult*: Diabetic foot infection Attending Physician: Chantal Posey MD Primary Care Provider: Frankie Woodall DPM History of Present Illness History of Present Illness Levi Bonilla is a 66 year old male seen bedside this morning denies any acute events overnight, tolerating regular diet. Planning on surgical debridement tomorrow morning. Review of Systems General: Reports: 10 or more systems reviewed and unremarkable except in HPI and below Const: Denies: fever(s) or chills Card: Denies: chest pain or palpitations Resp: Denies: productive cough GI: Denies: abdominal pain, nausea or vomiting : Denies: flank pain Musc: Reports: extremity swelling, joint pain, joint stiffness, limited range of motion and deformity Skin/Breast: Reports: erythema, sores, nail changes and change in hair; Denies: rash Neuro: Reports: numbness in extremities, sensory changes and difficulty walking Psych: Denies: suicidal ideation Edmundo/Lymph: Denies: easy bruising Meds/Allergies Home Medications and Allergies Home Medications Medication Instructions Recorded Confirmed Last Taken Type allopurinol 300 mg PO QAM 08/11/20 07/07/21 06/09/21 07:30 History citalopram 20 mg PO BEDTIME 08/11/20 07/07/21 06/08/21 History clonidine HCl 0.1 mg PO BID 08/11/20 07/07/21 06/09/21 07:30 History cyclobenzaprine 5 mg PO Q8H PRN 08/11/20 07/07/21 09/26/20 History ergocalciferol (vitamin D2) 1,250 mcg PO Q7D 08/11/20 07/07/21 06/08/21 History losartan 100 mg PO BEDTIME 08/11/20 07/07/21 06/08/21 History pantoprazole 40 mg PO QAM 08/11/20 07/07/21 06/09/21 07:30 History paricalcitol [Zemplar] 1 mcg PO .FIVE TIMES A WEEK 08/11/20 07/07/21 06/09/21 07:30 History torsemide 100 mg PO QAM 08/11/20 07/07/21 06/09/21 07:30 History polysaccharide iron complex 150 mg PO BID 09/27/20 07/07/21 06/09/21 07:30 History [Ferrex 150] amlodipine 10 mg tablet 10 mg PO BEDTIME tab 10/14/20 07/07/21 06/08/21 History Auryxia 630 mg PO TIDWM 11/25/20 07/07/21 06/08/21 History glipizide 5 mg PO QAM 11/26/20 07/07/21 06/09/21 07:30 History metoprolol tartrate 100 mg PO Q12H 11/26/20 07/07/21 06/09/21 07:30 History Renal Factor Plus 1 tab PO DAILY 06/09/21 07/07/21 Unknown History aspirin 81 mg PO BEDTIME 06/09/21 07/07/21 06/08/21 History levothyroxine 175 mcg PO QAM 06/09/21 07/07/21 06/09/21 History omega 3-[id number]-qln-fish oil [Fish Oil] 1 cap PO BID #0 06/09/21 07/07/21 06/09/21 07:30 History amoxicillin-pot clavulanate 1 tab PO BID 28 Days #56 tab 06/15/21 07/07/21 07/06/21 Rx [Augmentin] ciprofloxacin HCl 250 mg PO BID 28 Days #56 tab 06/15/21 07/07/21 07/06/21 Rx oxycodone 5 mg PO Q8H PRN #10 cap 06/15/21 07/07/21 Unknown Rx sennosides-docusate sodium [Senna 1 tab-cap PO DAILY #10 cap 06/15/21 07/07/21 Unknown Rx Plus] atorvastatin 20 mg PO DAILY 07/07/21 07/07/21 Unknown History Allergies Allergy/AdvReac Type Severity Reaction Status Date / Time No Known Allergies Allergy Verified 07/06/21 16:21 Current Medications Current Medications Generic Name Dose Route Start Last Admin Trade Name Freq PRN Reason Stop Dose Admin Atorvastatin Calcium 20 mg 07/06/21 21:45 07/06/21 22:28 Atorvastatin 40 Mg Tablet PO 20 mg BEDTIME MARIANELA Administration Heparin Sodium (Porcine) 5,000 unit 07/06/21 20:00 07/06/21 21:12 Heparin 5,000 Unit/Ml Inj 1 Ml SUBCUT 5,000 unit Q12H MARIANELA Administration Linezolid 600 mg in 300 mls @ 300 mls/hr 07/06/21 22:00 07/07/21 01:15 Zyvox Premix IV Infused Q12H MARIANELA Infusion Protocol Levofloxacin/Dextrose 750 mg in 150 mls @ 100 mls/hr 07/06/21 20:00 07/06/21 23:59 Levaquin-D5w IV Infused Q48H MARIANELA Infusion Protocol Oxycodone HCl 5 mg 07/06/21 21:08 07/07/21 00:06 Oxycodone 5 Mg Ir Tab/Cap PO 5 mg Q4H PRN Administration MODERATE TO SEVERE PAIN PFSH Acute PFSH: Medical History (Updated 07/07/21 @ 13:00 by Frankie Woodall DPM) Anemia Arteriovenous fistula of left upper extremity on peritoneal dialysis, not being used Atrial fibrillation, chronic Charcot's arthropathy 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 Critical limb ischemia with history of revascularization of same extremity (11/2020) Diabetic neuropathy DM type 2 (diabetes mellitus, type 2) End stage renal disease on peritoneal dialysis Gout Hammertoe Hx of blood clots Hypertension Hypothyroidism Morbid obesity Osteomyelitis (08/2020) right foot, MSSA and Group C strep Peripheral vascular disease severe Septic thrombophlebitis of upper extremities (07/06/21) related to PICC line Septicemia, Pseudomonas (09/2020) Surgical History (Updated 07/06/21 @ 19:42 by Chantal Posey MD) 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 Woodall Peritoneal dialysis catheter in place Presence of Watchman left atrial appendage closure device S/P PICC central line placement with subsequent removal due to thrombophlebitis and RIJ DVT Family History Other Cancer Family history non-contributory Social History (Updated 07/06/21 @ 21:52 by Chantal Posey MD) Smoking and tobacco status: never smoked Alcohol intake: former Former alcohol use details: use to drink occassionally, none in years Substance/Drug Use: never Lives independently: Yes Housing: House Vitals/I&O/Wt Last Vital Signs Temp 98.2 F 07/07/21 04:00 Pulse 103 H 07/07/21 04:00 Resp 19 H 07/07/21 04:00 BP 119/67 07/07/21 04:00 Pulse Ox 93 07/07/21 04:00 07/06/21 07/06/21 07/07/21 14:59 22:59 06:59 Intake Total 950 / 950 Output Total 0 / 0 550 / 550 Balance 0 / 0 400 / 400 Weight last 48 hrs Weight 315 lb Physical Exam Narrative: EXAM NARRATIVE: Patient is alert and oriented ?3 and in no acute distress. The following is a focused right lower extremity exam. VASCULAR: Dorsalis pedis and posterior tibial arteries palpable +2. Capillary refill time less than 3 seconds to the distal hallux bilaterally. Calf is supple and nontender proximally and distally. Mild edema at the operative site consistent with postoperative course. NEUROLOGICAL: Protective sensation intact to light touch. DERMATOLOGICAL: Sutures were pulled through the most medial aspect of the transmetatarsal amputation and the sutures remaining are intact however the skin margins are not well coapted there is some macerated tissue at the margins and fibrotic tissue. Complete dehiscence of transmetatarsal amputation site right foot, no purulence, localized erythema. Exposed bone able to visualize metatarsals. MUSCULOSKELETAL: Tenderness about the operative site consistent with postoperative course. No pain with posterior calf squeeze. Further musculoskeletal exam deferred due to postoperative state. Data 2 Micro: Micro: Microbiology 07/06/21 20:15 Blood Culture - Pr eliminary Blood SPECIMEN [facility] 07/06/21 20:22 Blood Culture - Pr eliminary Blood SPECIMEN [facility] A&P Assessment and plan (1) Peripheral vascular disease: Status: Chronic (2) DM type 2 (diabetes mellitus, type 2): Status: Chronic Qualifiers: Diabetes mellitus complication detail: with polyneuropathy Diabetes mellitus complication status: with neurologic complications Diabetes mellitus terminal computer operator insulin use: without terminal computer operator use Qualified Code(s): E11.42 - Type 2 diabetes mellitus with diabetic polyneuropathy (3) End stage renal disease: Status: Chronic (4) Non-pressure chronic ulcer of other part of right foot with necrosis of bone: Status: Acute Patient on Zyvox and Levaquin empirically Betadine wet-to-dry dressing change performed today Patient to be n.p.o. at midnight Surgical debridement tomorrow and wound VAC application Patient will need transfer to [facility] for placement of PICC line through the jugular Consult Attestations Medical Necessity Statement: Diabetic foot infection Coding Level of Care Code Acute Health Care Manager for Chg Fwd Diagnoses Peripheral vascular disease I73.9 DM type 2 (diabetes mellitus, type 2) E11.42 Diabetes mellitus complication detail: with polyneuropathy Diabetes mellitus complication status: with neurologic complications Diabetes mellitus terminal computer operator insulin use: without detention use End stage renal disease N18.6 Non-pressure chronic ulcer of other part of right foot with necrosis of bone L97.514
--- NOTE | 2021-07-07 07:17 | PM.PN ---
Subjective Subjective: Interval history: feels better. did not get PD overnight. no n/v/sob/ cp/ bhakta/d. has leg pain Medications: Reviewed: Yes Medication Review Details: Current Medications Acetaminophen (Acetaminophen 325 Mg Tablet) 650 mg PO Q6H PRN PRN Reason: Mild/Mod Pain Or Temp >/= 101 Allopurinol (Allopurinol 300 Mg Tablet) 100 mg PO DAILY MARIANELA Aspirin (Aspirin 81 Mg Ec Tablet) 81 mg PO DAILY MARIANELA Atorvastatin Calcium (Atorvastatin 40 Mg Tablet) 20 mg PO BEDTIME MARIANELA Last Admin: 07/06/21 22:28 Dose: 20 mg Documented by: Bisacodyl (Bisacodyl 5 Mg Tablet) 10 mg PO DAILY PRN; Protocol PRN Reason: Constipation (see protocol) Calcium Carbonate (Calcium Carbonate 500 Mg Chew Tablet) 1,000 mg PO Q6H PRN PRN Reason: DYSPEPSI Citalopram Hydrobromide (Citalopram 20 Mg Tablet) 20 mg PO DAILY MARIANELA Clonidine HCl (Clonidine 0.1 Mg Tablet) 0.1 mg PO Q4H PRN PRN Reason: SBP >/=175 Cyclobenzaprine HCl (Cyclobenzaprine 10 Mg Tablet) 5 mg PO TID PRN PRN Reason: MUSCLE SPASMS Heparin Sodium (Porcine) (Heparin 5,000 Unit/Ml Inj 1 Ml) 5,000 unit SUBCUT Q12H MARIANELA Last Admin: 07/06/21 21:12 Dose: 5,000 unit Documented by: Linezolid (Zyvox Premix) 600 mg in 300 mls @ 300 mls/hr IV Q12H MARIANELA; Protocol Last Infusion: 07/07/21 01:15 Dose: Infused Documented by: Levofloxacin/Dextrose (Levaquin-D5w) 750 mg in 150 mls @ 100 mls/hr IV Q48H MARIANELA; Protocol Last Infusion: 07/06/21 23:59 Dose: Infused Documented by: Lactobacillus Acidophilus (Lactobacillus 1 Tablet) 1 tab PO BID [facility] Levothyroxine Sodium (Levothyroxine 175 Mcg Tablet) 175 mcg PO DAILY [facility] Metoprolol Tartrate (Metoprolol Tartrate 50 Mg Tablet) 50 mg PO BID@0900,2100 [facility] Ondansetron HCl (Ondansetron 2 Mg/Ml Sdv 2 Ml) 4 mg IVP Q8H PRN PRN Reason: vomiting, or N/V if npo Ondansetron HCl (Ondansetron 4 Mg Tablet) 4 mg PO Q8H PRN PRN Reason: NAUSEA Oxycodone HCl (Oxycodone 5 Mg Ir Tab/Cap) 5 mg PO Q4H PRN PRN Reason: MODERATE TO SEVERE PAIN Last Admin: 07/07/21 00:06 Dose: 5 mg Documented by: Peritoneal Dialysis Solution (Dianeal Low Ca W/1.5% Dex 2,000 Ml Bag) 2,000 ml INTRAPERIT QID MARIANELA Polysaccharide Iron Complex (Iron Polysaccharide Complex 150 Mg Capsule) 150 mg PO BIDWM [facility] Senna/Docusate Sodium (Sennosides-Docusate Tablet) 1 tab PO DAILY MARIANELA Vitals/I&O/Wt Last Vital Signs Temp 98.2 F 07/07/21 04:00 Pulse 103 H 07/07/21 04:00 Resp 19 H 07/07/21 04:00 BP 119/67 07/07/21 04:00 Pulse Ox 93 07/07/21 04:00 07/06/21 07/07/21 07/07/21 22:59 06:59 14:59 Intake Total 950 / 950 Output Total 0 / 0 550 / 550 Balance 0 / 0 400 / 400 Weight last 48 hrs Weight 142.882 kg Physical Exam Narrative: EXAM NARRATIVE: comfortable in bed, NARD vs noted- HR improved Heent- nc/at, eomi, anicteric neck- no jvp lung clear b/l heart- irreg irreg, +RUBENS abd soft, nt, nd, +BS. rt sided PD catheter c/d/i exit site ext - rt TMA bandaged, minimal edema neuro- a,a, o x 3 skin- no rash, + leakage from foot Data : 07/07/21 03:25 07/07/21 03:25 Micro: Microbiology 07/06/21 20:15 Blood Culture - Preliminary Blood SPECIMEN COLLECTED 07/06/21 20:22 Blood Culture - Preliminary Blood SPECIMEN COLLECTED A&P Additional A&P Information 66 yr old man 1. OM- s/p RT TMA- still with discharge and wound dehiscence- iv abx and further surgery per surgery- plan OR on Sunday -h/o MSSA and strep OM -assess for bacteremia and full ID eval per medicine -wbc is 14 -dose abx for ESRD on PD 2. ESRD-CCPD at home- Home prescription is CCPD, 8 hours on the cycler, three exchanges of 8 L, 2.5% and 1 day exchange of icodextrin. In hospital we will do CAPD. As he has a fib w/ low BP- will be gentle- CAPD 4 exchanges a day w/ 1.25% gluc -has a LUE AVF- was on HD in the past -phos binder 3. a fib per medicine 4. anemia- check iron studies- avoid iv iron w/ active infection -EPO- 10,000 u now 5. DM control 6. hyponatremia - monitor w/ dialysis 7. hypothyroidism on levothyroxine- normal tsh 8. gout - check uric acid level. dec allopurinol to 100 mgm po daily as ESRD Patient seen and examined via telemedicine, with the assistance of the bedside RN 30 min spent in evaluation and mgmt of patient discussed w/ nurse in detail -informed consent obtained for telehealth visit Attestations Medical Necessity Statement*: Osteomyelitis of RLE, ESRD Time Spent in Patient Care: 16 - 35 minutes Coding Level of Care Code Acute Naphthalene Operator for Joseg More
[2021-07-07 08:05] LABS: Uric Acid 5.5 mg/dL (3.4-7.0)
[2021-07-07] MEDS: levothyroxine 175 mcg Tablet PO (08:17)
[2021-07-07] MEDS: sevelamer 800 mg Tablet 1600 MG PO ×3 (08:17→20:00)
[2021-07-07] MEDS: lactobacillus 1 Tablet 1 TAB PO ×2 (08:17→17:29)
[2021-07-07] MEDS: sennosides-docusate Tablet 1 TAB PO (08:17)
[2021-07-07] MEDS: aspirin 81 mg EC Tablet PO (08:17)
[2021-07-07] MEDS: metoprolol tartrate 50 mg Tablet PO ×2 (08:17→20:00)
[2021-07-07] MEDS: citalopram 20 mg Tablet PO (08:17)
[2021-07-07] MEDS: iron polysaccharide complex 150 mg Capsule PO ×2 (08:17→17:29)
[2021-07-07] MEDS: heparin 5,000 unit/mL INJ 1 mL 5000 UNIT SUBCUT ×2 (08:17→20:01)
[2021-07-07] MEDS: allopurinol 300 mg Tablet 100 MG PO (08:17)
[2021-07-07] MEDS: Dianeal low Ca w/1.5% dex 2,000 mL Bag 2000 ML INTRAPERIT ×4 (10:25→22:31)
--- NOTE | 2021-07-07 10:53 | PC.CHAP ---
Pastoral Care Encounter/Spiritual Assessment Type of Contact [] Declined video game developer visit [] Patient/Family/Request visit [] Outpatient visit [] Follow-up visit [] Physician referral [] Code/Alert [x] Routine visit [] Staff referral [] Actively dying [] Patient sleeping [] Family support [] [] Out of room [] Palliative care [] [x] Receiving care in room [] Pre-surgical visit [] Trauma [x] Long length of stay [] ICU visit [] Other: Relational/Emotional Strength [] Patient feels connected with others/family/visitors/staff [] Distress [] Loneliness/isolation [] Abandonment Spirituality of Patient [x] Person of Kaitlyn [] Attends Islam of their Kaitlyn [x] Believes in Prayer [] Reads Bible or Cheondoism materials [] There are Spiritual issues to be addressed University Controller Interventions [x] Prayer [x] Active listening [x] Non-anxious presence [x] Spiritual/emotional support [] Crisis/trauma care [x] Spiritual counseling [] Bereavement support [] Provided bereavement packet [] Provided Bible/devotional materials [] Provided toy/stuffed animal, coloring book to patient or family member [] Provided Communion [] Anointing/[place] [] Salvation [x] Completed spiritual assessment [] Other: Impact on Illness or Injury [] Angry [] Fearful [x] Anxious [] Often cries [] Exhaustion [x] Unable to work [] Unable to attend shinto [] Unable to walk/stand [] Unable to read [] Unable to drive [] Unable to eat/drink [] Unable to sleep [] Unable to be with family [] Patient intubated [] Other: Summary had a toe removed will need some rehab time he going to [facility] for more recovery on other health isuses has a good attitude Time spent with patient 10 mins
[2021-07-07] MEDS: epoetin alfa 10,000 unit/mL INJ 10000 UNIT SUBCUT (11:32)
--- NOTE | 2021-07-07 11:50 | P.PN_ITS ---
Subjective Subjective: Interval history: Patient seen and examined this morning. I did not examine his toe. It was wrapped with a Band-Aid. His right foot was examined by night hospitalist at admission last night. The plan is for him to go to the OR tomorrow with Dr. Woodall for further debridement. Thereafter the plan is to possibly send him to [facility] for a specialized PICC line by interventional radiology. We do not have that service here at our hospital. He will also potentially need vascular surgery consult which is another service we do not have at this hospital. Patient is in good spirits today and generally feels well except that he is worried about his right foot. He states he was recommended to come to the hospital for IV antibiotics by his infectious disease doctor. Vitals/I&O/Wt Last Vital Signs Temp 98.7 F 07/07/21 08:00 Pulse 98 07/07/21 08:00 Resp 17 07/07/21 08:00 BP 145/80 07/07/21 08:00 Pulse Ox 99 07/07/21 07:47 07/06/21 07/07/21 07/07/21 22:59 06:59 14:59 Intake Total 950 / 950 780 / 780 Output Total 0 / 0 550 / 550 250 / 250 Balance 0 / 0 400 / 400 530 / 530 Weight last 48 hrs Weight 142.882 kg Physical Exam Narrative: EXAM NARRATIVE: General: Alert oriented x3, patient seen sitting up in bed in good spirits appearing happy. He is quite pleasant to talk to. HEENT: Normocephalic, atraumatic, EOMI, breathing room air Cardio: Irregularly irregular rhythm, normal S1-S2, no murmurs rubs gallops, did not assess JVD due to large neck. Patient clinically appears euvolemic. Respiratory: Good bilateral air entry, no wheezes, no rhonchi present. GI: Abdomen soft, nontender, nondistended, bowel sounds +, peritoneal dialysis catheter in place. Obese rounded abdomen Behavior: Appropriate and cooperative Extremities: Unable to appreciate pulses on right toe due to Band-Aid. There is trace lower extremity edema in the left lower extremity and right lower extremity.. Data : 07/07/21 03:25 07/07/21 03:25 Micro: Microbiology 07/06/21 20:15 Blood Culture - Preliminary Blood SPECIMEN COLLECTED 07/06/21 20:22 Blood Culture - Preliminary Blood SPECIMEN COLLECTED A&P Assessment and plan (1) Hypertension: Status: Chronic Qualifiers: Hypertension type: essential hypertension Qualified Code(s): I10 - Essential (primary) hypertension (2) DM type 2 (diabetes mellitus, type 2): Status: Chronic Qualifiers: Diabetes mellitus complication detail: with polyneuropathy Diabetes mellitus complication status: with neurologic complications Diabetes mellitus intermodal dispatcher insulin use: without custodial use Qualified Code(s): E11.42 - Type 2 diabetes mellitus with diabetic polyneuropathy (3) Atrial fibrillation, chronic: Status: Chronic (4) Peripheral vascular disease: Status: Chronic (5) End stage renal disease: Status: Chronic (6) History of transmetatarsal amputation of foot: Status: Chronic (7) Needs peripherally inserted central catheter (PICC): Status: Acute (8) Dehiscence of amputation stump: Status: Acute (9) Non-pressure chronic ulcer of other part of right foot with necrosis of muscle: Status: Chronic Additional A&P Information History of gout on allopurinol Hypothyroidism on levothyroxine History of depression on citalopram Chronic pain on as needed Flexeril and oxycodone Chronic PPI use -Plan is to continue linezolid and Levaquin IV. Blood cultures CRP lactic acid pending Covid PCR pending Nephrology is consulted and following for peritoneal dialysis. Dr. Messer saw the patient this morning. Amlodipine losartan torsemide were held on admission due to borderline blood pressures. Clonidine was held for the same reason. I will monitor blood pressure and slowly add medications as needed. Continue to hold home glipizide. Will place patient on sliding scale while inpatient Continue iron. We will also continue to monitor hemoglobin for further drop. For now we will continue aspirin but if there is evidence of further hemoglobin dropping or bleeding we will consider holding it. Continue home allopurinol, levothyroxine, citalopram. PPI also held due to high risk of C. difficile infection since patient is going to be getting antibiotics. -We will resee patient after debridement tomorrow. N.p.o. at midnight today. Will await recommendations from Dr. Woodall and Dr. Hackett for further management. Fluids: None indicated Electrolytes: Replete as needed Nutrition: Cardiac low-salt low carbohydrate diabetic diet Activity: As tolerated out of bed to chair DVT prophylaxis: Heparin subcu. Attestations Medical Necessity Statement*: Expected to cross greater than 2 midnights Time Spent in Patient Care: 16 - 35 minutes Coding Level of Care Code Acute Straightening Press Operator for Joseg Fwd Diagnoses Hypertension I10 Hypertension type: essential hypertension DM type 2 (diabetes mellitus, type 2) E11.42 Diabetes mellitus complication detail: with polyneuropathy Diabetes mellitus complication status: with neurologic complications Diabetes mellitus intermodal dispatcher insulin use: without custodial use Atrial fibrillation, chronic I48.20 Peripheral vascular disease I73.9 End stage renal disease N18.6 History of transmetatarsal amputation of foot Z89.439 Needs peripherally inserted central catheter (PICC) Z45.2 Dehiscence of amputation stump T87.81 Non-pressure chronic ulcer of other part of right foot with necrosis of muscle L97.513
[2021-07-07 14:04] LABS: Color, Peritoneal Fluid Pale Yellow (Pale Yellow)
[2021-07-07 14:05] LABS: Appearance, Peritoneal Fluid Clear (Clear)
[2021-07-07 14:11] LABS: Mononuclear #, Pertinoneal Fl 0.035 10^3/uL; Polynuclear # Cells, Perit 0.002 10^3/uL
[2021-07-07 14:23] LABS: RBC Pertioneal Fluid 0 10^3/uL; WBC Peritoneal Fluid 37 /uL
[2021-07-07] MEDS: atorvastatin 40 mg Tablet 20 MG PO (20:00)
[2021-07-08] VITALS (14 sets, daily range): BP systolic 103–153; BP diastolic 54–87; PULSE 76–143; RESP 17–19; TEMP 36.4–37.8; O2SAT 92–97
[2021-07-08] MEDS: piperacillin-tazobactam 3.375 GM in sodium chloride 0.9% (plus) 50 ML IV ×3 (00:42→23:30)
[2021-07-08 05:41] LABS: Basophils % 0.2 %; Eosinophils # 0.6 10^3/uL (0.0-0.8); Eosinophils % 5.3 %; Hematocrit 23.6 % (42.0-52.0); Hemoglobin 7.5 g/dL (11.7-16.6); Lymphocytes # 0.8 10^3/uL (0.8-4.8); Lymphocytes % 6.9 %; Mean Corpuscular HGB Conc 31.8 g/dL (30.0-36.0); Mean Corpuscular Hemoglobin 30.5 pg (28.0-34.0); Mean Corpuscular Volume 95.9 fl (80-94); Monocytes # 1.4 10^3/uL (0.2-0.9); Monocytes % 12.2 %; Neutrophils # 8.72 10^3/uL (1.8-7.7); Neutrophils % 74.1 %; Nucleated Red Blood Cells % 0 %; Platelet Count 216 10^3/cmm (130-400); Red Blood Count 2.46 10^6/uL (4.1-5.3); Red Cell Distribution Width 14.8 % (12.1-15.1); White Blood Count 11.8 10^3/uL (4.0-10.0)
[2021-07-08 06:53] LABS: Anion Gap 17.8 (5-19); Blood Urea Nitrogen 61 mg/dL (8-23); Calcium 9.4 mg/dL (8.5-10.5); Carbon Dioxide 24 mmol/L (22-29); Chloride 93 mmol/L (98-107); Glomerular Filtration Rate 7.6 mL/min (90-130); Glucose 200 mg/dL (65-115); Iron 29 ug/dL (59-158); Magnesium 1.8 mg/dL (1.7-2.3); Osmolality Calculated 295 mOsm/kg (285-295); Potassium 3.8 mmol/L (3.5-5.1); Sodium 131 mmol/L (136-145); Total Iron Binding Capacity 145 mcg/dl; Unsaturated Iron Binding 116 ug/dL (112-347)
[2021-07-08 07:08] LABS: 25 Hydroxy Vitamin D 51 ng/mL (30-100)
[2021-07-08 07:09] LABS: Ferritin 2678 ng/mL (30-400)
--- NOTE | 2021-07-08 07:47 | PM.PN ---
Subjective Subjective: Interval history: seen via telehealth reports PD is going well. RN reports no UF is occuring with 1.5% exchanges. He uses 2.5% and icodextrin at home Medications: Reviewed: Yes Vitals/I&O/Wt Last Vital Signs Temp 97.5 F L 07/08/21 07:29 Pulse 108 H 07/08/21 07:29 Resp 18 07/08/21 07:29 BP 133/63 07/08/21 07:29 Pulse Ox 95 07/08/21 07:29 07/07/21 07/08/21 07/08/21 22:59 06:59 14:59 Intake Total 480 / 1500 350 / 1850 Output Total 700 / 1200 Balance 480 / 1000 -350 / 650 Weight last 48 hrs Weight 142.882 kg Physical Exam Const: COMMON NORMALS: no acute distress GENERAL APPEARANCE: cooperative Extremity: GENERAL: No edema Data : 07/08/21 04:36 07/08/21 06:21 Other Labs: TSAT 20%, SF 2678 uric acid 5.5, phos 5.2, Ca 9, Mg 1.7, albumin 2.7 Micro: Microbiology 07/06/21 20:22 Blood Culture - Preliminary Blood NEGATIVE TO DATE 07/06/21 20:15 Blood Culture - Preliminary Blood NEGATIVE TO DATE A&P Additional A&P Information Impression: 1. ESRD on peritoneal dialysis 2. Osteomylitis, scheduled for debridement today 3. Anemia, iron replete 4. Hyponatremia, likely hypervolemic. slightly Improved 5. Poor nutrition Recommend: Change PD to 2.5% QID. Increase epogen. Nutritional supplements Attestations Medical Necessity Statement*: per primary service Time Spent in Patient Care: 16 - 35 minutes Coding Level of Care Code Acute Explosives Worker for Joseg Fwjuan carlos
[2021-07-08] MEDS: heparin 5,000 unit/mL INJ 1 mL 5000 UNIT SUBCUT ×2 (08:01→21:13)
[2021-07-08] MEDS: aspirin 81 mg EC Tablet PO (08:04)
[2021-07-08] MEDS: iron polysaccharide complex 150 mg Capsule PO ×2 (08:07→17:57)
[2021-07-08] MEDS: allopurinol 100 mg Tablet PO (08:12)
[2021-07-08] MEDS: sennosides-docusate Tablet 1 TAB PO (08:13)
[2021-07-08] MEDS: lactobacillus 1 Tablet 1 TAB PO ×2 (08:13→17:57)
[2021-07-08] MEDS: citalopram 20 mg Tablet PO (08:13)
[2021-07-08] MEDS: levothyroxine 175 mcg Tablet PO (08:15)
[2021-07-08] MEDS: metoprolol tartrate 50 mg Tablet PO ×2 (08:15→21:13)
--- NOTE | 2021-07-08 08:44 | P.HPUD_ITS ---
Surgery/Procedure H&P Update DATE OF PROCEDURE: July 08, 2021 DATE H&P PERFORMED: 07/06/21 H&P UPDATE INFORMATION: I have reviewed H&P completed within last 30 days, I have examined patient prior to procedure, No changes to prior documentation and H&P is in [facility] EMR on date indicated PREOP DIAGNOSIS: Gangrene right foot, osteomyelitis right foot, equinus right lower extremit PLANNED PROCEDURE: Operation Date: 07/08/21 08:50 Proposed Procedures p Incision and Debridement down to bone, application of wound vac Right foot(Right) - Frankie Woodall DPM
--- NOTE | 2021-07-08 09:09 | PC.NURSE ---
AT APPROX. 0900 PT WAS TAKEN DOWN TO THE OR
[2021-07-08] MEDS: sodium chloride 0.9% 1,000 ML 30 ML IV (09:15)
--- NOTE | 2021-07-08 09:15 | ANES.PREANE2 ---
Pre-Anesthetic Assessment Pre-Anesthetic Assessment: Height/Weight: Height 1.83 m Weight 142.882 kg Temp Pulse Resp BP Pulse Ox 97.5 F L 96 18 114/87 96 07/08/21 07:29 07/08/21 09:12 07/08/21 09:12 07/08/21 09:12 07/08/21 09:12 Preop Diagnosis: Gangrene right foot, osteomyelitis right foot, equinus right lower extremit Proposed Procedure: Operation Date: 07/08/21 08:50 Proposed Procedures p Incision and Debridement down to bone, application of wound vac Right foot(Right) - Frankie Woodall, DPM Was Beta Jayne taken within 24 hours: Yes Was Clonidine taken within 24 hours: N/A Last intake: Intake Last Liquid Date 07/07/21 Last Liquid Time 22:00 Last Solid Date 07/07/21 Social: Social History: No alcohol and No tobacco Exam: Pre-Anes Outpt Exam: alert, oriented x 3 and clear to auscultation bilaterally Airway: Submandibular: WNL Cervical ROM: WNL MP: 2 Additional comments: Missing one on lower arch CV/HEM: CV/HEM: Afib, Anemia, HTN and PVD : : Chronic renal failure GI: GI: GERD Metabolic: Metabolic: DM, Morbid obesity and Thyroid Anesthetic Plan: ASA status: 3 Anesthesia: MAC Risk of > 500 ml blood loss (7ml/kg in children): No Meds/Allergies Current Medications: Current Medications Generic Name Dose Route Start Last Admin Trade Name Fabriceq PRN Reason Stop Dose Admin Allopurinol 100 mg 07/07/21 09:00 07/08/21 09:08 Allopurinol 300 Mg Tablet PO Not Given DAILY MARIANELA Allopurinol 100 mg 07/08/21 09:00 07/08/21 08:12 Allopurinol 100 Mg Tablet PO 100 mg DAILY MARIANELA Administration Aspirin 81 mg 07/07/21 09:00 07/08/21 08:04 Aspirin 81 Mg Ec Tablet PO 81 mg DAILY MARIANELA Administration Atorvastatin Calci um 20 mg 07/06/21 21:45 07/07/21 20:00 Atorvastatin 40 Mg Tablet PO 20 mg BEDTIME MARIANELA Administration Citalopram Hydrobr omide 20 mg 07/07/21 09:00 07/08/21 08:13 Citalopram 20 Mg Tablet PO 20 mg DAILY MARIANELA Administration Heparin Sodium (Po rcine) 5,000 unit 07/06/21 20:00 07/08/21 08:01 Heparin 5,000 Un it/Ml Inj 1 Ml SUBCUT 5,000 unit Q12H MARIANELA Administration Linezolid 600 mg in 300 mls @ 300 mls/hr 07/06/21 22:00 07/08/21 00:29 Zyvox Premix IV Infused Q12H MARIANELA Infusion Protocol Piperacillin Sod/T azobactam 50 mls @ 12.5 mls /hr 07/07/21 20:45 07/08/21 05:43 Sod 3.375 gm/ So dium Chloride IV Infused Q12H MARIANELA Infusion Protocol As Directed Lactobacillus Acid ophilus 1 tab 07/07/21 09:00 07/08/21 08:13 Lactobacillus 1 Tablet PO 1 tab BID MARIANELA Administration Levothyroxine Sodi um 175 mcg 07/07/21 09:00 07/08/21 08:15 Levothyroxine 17 5 Mcg Tablet PO 175 mcg DAILY MARIANELA Administration Metoprolol Tartrat e 50 mg 07/07/21 09:00 07/08/21 08:15 Metoprolol Tartr ate 50 Mg Tablet PO 50 mg BID@0900,2100 MARIANELA Administration Oxycodone HCl 5 mg 07/06/21 21:08 07/07/21 12:51 Oxycodone 5 Mg I r Tab/Cap PO 5 mg Q4H PRN Administration MODERATE TO SEVER E PAIN Peritoneal Dialysi s Solution 2,000 ml 07/07/21 09:00 07/07/21 22:31 Dianeal Low Ca W /1.5% Dex 2,000 Ml Bag INTRAPERIT 2,000 ml QID MARIANELA Administration Polysaccharide Iro n Complex 150 mg 07/07/21 08:00 07/08/21 08:07 Iron Polysacchar efrain Complex 150 Mg Capsule PO 150 mg BIDWM MARIANELA Administration Senna/Docusate Sod ium 1 tab 07/07/21 09:00 07/08/21 08:13 Sennosides-Docus ate Tablet PO 1 tab DAILY MARIANELA Administration Sevelamer Carbonat e 1,600 mg 07/07/21 09:00 07/08/21 09:09 Sevelamer 800 Mg Tablet PO Not Given TID MARIANELA PFSH Anesthesia PFSH: Medical History (Updated 07/07/21 @ 13:00 by Frankie Woodall DPM) Anemia Arteriovenous fistula of left upper extremity on peritoneal dialysis, not being used Atrial fibrillation, chronic Charcot's arthropathy 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 Critical limb ischemia with history of revascularization of same extremity (11/2020) Diabetic neuropathy DM type 2 (diabetes mellitus, type 2) End stage renal disease on peritoneal dialysis Gout Hammertoe Hx of blood clots Hypertension Hypothyroidism Morbid obesity Osteomyelitis (08/2020) right foot, MSSA and Group C strep Peripheral vascular disease severe Septic thrombophlebitis of upper extremities (07/06/21) related to PICC line Septicemia, Pseudomonas (09/2020) Surgical History (Updated 07/06/21 @ 19:42 by Chantal Posey MD) 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 Woodall Peritoneal dialysis catheter in place Presence of Watchman left atrial appendage closure device S/P PICC central line placement with subsequent removal due to thrombophlebitis and RIJ DVT Family History Other Cancer Family history non-contributory Social History (Updated 07/06/21 @ 21:52 by Chantal Posey MD) Smoking and tobacco status: never smoked Alcohol intake: former Former alcohol use details: use to drink occassionally, none in years Lives independently: Yes Housing: House Data Anesthesia CBC & Chem 7: 07/08/21 04:36 07/08/21 06:21 Other Labs: Laboratory Results - last 48 hr 07/06/21 07/06/21 07/06/21 13:00 20:15 20:15 WBC 13.9 H RBC 2.45 L Hgb 7.6 L Hct 23.4 L MCV 95.5 H MCH 31.0 MCHC 32.5 RDW 14.7 Plt Count 244 MPV 9.9 Neut % (Auto) 81.1 Lymph % (Auto) 4.4 [place] % (Auto) 9.6 Eos % (Auto) 3.9 Baso % (Auto) 0.1 Neut # (Auto) 11.29 H Lymph # (Auto) 0.6 L [place] # (Auto) 1.3 H Eos # (Auto) 0.5 Baso # (Auto) 0.0 Nucleated RBC % (auto) 0 Nucleated RBCs # 0.0 PT INR APTT Sodium 131 L Potassium 3.9 Chloride 93 L Carbon Dioxide 22 Anion Gap 19.9 H BUN 60 H Creatinine 7.4 H* GFR Calculation 7.4 L Glucose 212 H Calculated Osmolality 295 Lactic Acid Uric Acid Calcium 9.0 Phosphorus Magnesium Iron TIBC % Saturation Unsat Iron Binding Ferritin Total Bilirubin 0.3 AST 10 ALT 19 Alkaline Phosphatase 142 H C-Reactive Protein 120.2 H Total Protein 6.5 L Albumin 2.7 L Globulin 3.8 25-OH Vitamin D Total TSH Peritoneal Color Pale yellow Peritoneal Appearance Clear Peritoneal WBC 37 Peritoneal RBC 0 Periton Mononu # Auto 0.035 Mononuclear WBCs % 94.600 Polynuclear WBCs % 5.400 Perit Polynuc WBCs # 0.002 07/06/21 07/07/21 07/07/21 20:15 03:25 03:25 WBC 13.9 H RBC 2.50 L Hgb 7.5 L Hct 24.3 L MCV 97.2 H MCH 30.0 MCHC 30.9 RDW 14.8 Plt Count 232 MPV 9.9 Neut % (Auto) 75.2 Lymph % (Auto) 6.8 [place] % (Auto) 11.9 Eos % (Auto) 4.9 Baso % (Auto) 0.1 Neut # (Auto) 10.43 H Lymph # (Auto) 0.9 [place] # (Auto) 1.7 H Eos # (Auto) 0.7 Baso # (Auto) 0.0 Nucleated RBC % (auto) 0 Nucleated RBCs # 0.0 PT 15.10 H INR 1.16 APTT 35.6 Sodium Potassium Chloride Carbon Dioxide Anion Gap BUN Creatinine GFR Calculation Glucose Calculated Osmolality Lactic Acid 1.8 Uric Acid Calcium Phosphorus Magnesium Iron TIBC % Saturation Unsat Iron Binding Ferritin Total Bilirubin AST ALT Alkaline Phosphatase C-Reactive Protein Total Protein Albumin Globulin 25-OH Vitamin D Total TSH Peritoneal Color Peritoneal Appearance Peritoneal WBC Peritoneal RBC Periton Mononu # Auto Mononuclear WBCs % Polynuclear WBCs % Perit Polynuc WBCs # 07/07/21 07/07/21 07/08/21 03:25 03:25 04:36 WBC RBC Hgb Hct MCV MCH MCHC RDW Plt Count MPV Neut % (Auto) Lymph % (Auto) [place] % (Auto) Eos % (Auto) Baso % (Auto) Neut # (Auto) Lymph # (Auto) [place] # (Auto) Eos # (Auto) Baso # (Auto) Nucleated RBC % (auto) Nucleated RBCs # PT INR APTT Sodium 129 L Potassium 3.8 Chloride 91 L Carbon Dioxide 25 Anion Gap 16.8 BUN 62 H Creatinine 7.9 H* GFR Calculation 6.9 L Glucose 170 H Calculated Osmolality 290 Lactic Acid Uric Acid 5.5 Calcium 9.0 Phosphorus 5.2 H Magnesium 1.7 Iron Cancelled TIBC Cancelled % Saturation Cancelled Unsat Iron Binding Cancelled Ferritin Cancelled Total Bilirubin AST ALT Alkaline Phosphatase C-Reactive Protein Total Protein Albumin Globulin 25-OH Vitamin D Total Cancelled TSH 3.14 Peritoneal Color Peritoneal Appearance Peritoneal WBC Peritoneal RBC Periton Mononu # Auto Mononuclear WBCs % Polynuclear WBCs % Perit Polynuc WBCs # 07/08/21 07/08/21 07/08/21 04:36 04:36 06:21 WBC 11.8 H RBC 2.46 L Hgb 7.5 L Hct 23.6 L MCV 95.9 H MCH 30.5 MCHC 31.8 RDW 14.8 Plt Count 216 MPV 10.0 Neut % (Auto) 74.1 Lymph % (Auto) 6.9 [place] % (Auto) 12.2 Eos % (Auto) 5.3 Baso % (Auto) 0.2 Neut # (Auto) 8.72 H Lymph # (Auto) 0.8 [place] # (Auto) 1.4 H Eos # (Auto) 0.6 Baso # (Auto) 0.0 Nucleated RBC % (auto) 0 Nucleated RBCs # 0.0 PT INR APTT Sodium Cancelled 131 L Potassium Cancelled 3.8 Chloride Cancelled 93 L Carbon Dioxide Cancelled 24 Anion Gap Cancelled 17.8 BUN Cancelled 61 H Creatinine Cancelled 7.2 H* GFR Calculation Cancelled 7.6 L Glucose Cancelled 200 H Calculated Osmolality Cancelled 295 Lactic Acid Uric Acid Calcium Cancelled 9.4 Phosphorus Magnesium Cancelled 1.8 Iron 29 L TIBC 145 % Saturation 20.0 Unsat Iron Binding 116 Ferritin 2678 H Total Bilirubin AST ALT Alkaline Phosphatase C-Reactive Protein Total Protein Albumin Globulin 25-OH Vitamin D Total 51 TSH Peritoneal Color Peritoneal Appearance Peritoneal WBC Peritoneal RBC Periton Mononu # Auto Mononuclear WBCs % Polynuclear WBCs % Perit Polynuc WBCs # Micro: Microbiology 07/06/21 20:22 Blood Culture - Preliminary Blood NEGATIVE TO DATE 07/06/21 20:15 Blood Culture - Preliminary Blood NEGATIVE TO DATE Cardiac Studies: No Data to Display
--- NOTE | 2021-07-08 09:50 | PM.OP ---
Operative Report Date of procedure: July 08, 2021 Pre-op Diagnosis: Gangrene right foot, osteomyelitis right foot Post-op diagnosis: same Post-op Findings: Improved skin margins Procedure Done: Incision and debridement right foot with wound VAC application CPT code 92638 and wound VAC CPT code 41771 Implants: Wound VAC Specimens removed/disposition: Right first metatarsal Surgeon: Frankie Woodall D.P.M. Corporate Planning Manager: Tanvir Mercer Anesthesia: MAC Estimated blood loss: 30 Tourniquet time: see intraop report IV fluids: 0 Urine output: 0 Complications: None Findings: Devitalized bone first metatarsal devitalized bone first metatarsal right Condition: stable Disposition: floor Brief History: History of transmetatarsal amputation right foot with surgical site dehiscence and poor soft tissue quality at the skin margins. Requires surgical debridement down to bone. Risks include pain, bleeding, numbness, persistent infection need for higher level of amputation, wound care modalities, offloading, nonweightbearing status, antibiotics intravenously may ultimately need for potential higher level of amputation. Patient is agreeable wishes to proceed. Procedure: Under mild sedation the patient was brought to the operating room and remained on the gurney in supine position. Timeout was performed. Anesthesia administered by the anesthesia service. Tourniquet at the right ankle well-padded. Right lower extremity was scrubbed, prepped and draped utilizing normal aseptic technique. Attention was directed to the right foot transmetatarsal amputation stump that had significantly devitalized tissue down to bone involving the first metatarsal there was also muscle and deep fascia that was devitalized this was sharply excised to a clean margin that had skin bleeding edges. Corticotomy to the right first metatarsal showed poor density and poor color in the first metatarsal which was sharply excised and disarticulated at the metatarsal cuneiform joint. Incision was irrigated with copious amounts of sterile saline solution. Post wound debridement and incision measurements 15 cm x 8 cm x 3 cm. Wound VAC was then applied with excellent seal utilizing granular foam set at 125 mm negative pressure continuous. Patient tolerated procedure well and was transferred back to the floor with vital signs stable. Will continue IV antibiotics on the floor will need transfer to [facility] for placement of PICC line through jugular access.
--- NOTE | 2021-07-08 10:22 | SUR.PHASEI ---
PT AWKE ALERT ON RA NO DISTRESS NOTED PT HAS PERITONEAL DIALYSIS DRAINING TO BAG, AND WOUND VAC IN PLACE AND WORKING TO RT FOOT WOUND, MONITOR AFIB, VSS. REPORT CALLED TO FLOOR, NOT IN WAITING ROOM , WILL CHECK WHEN WE GET TO PT ROOM.
[2021-07-08] MEDS: oxyCODONE 5 mg IR Tab/Cap PO ×2 (11:58→15:53)
[2021-07-08] MEDS: epoetin alfa 1000 Unit/0.05 mL (ESRD) 20000 UNIT SUBCUT (12:03)
--- NOTE | 2021-07-08 12:31 | ANE.PACU2 ---
Inpatient post-anesthesia follow up: Airway intact: Yes Vital signs: Temperature 98.6 F Pulse Rate 93 Respiratory Rate 18 Blood Pressure 115/64 Pulse Oximetry 97 Oxygen Delivery Me thod Room Air Oxygen Flow Rate Fraction of Inspir ed Oxygen Hydration adequate: Yes Nausea and vomiting: No Pain level: 1 Mental status: Baseline
--- NOTE | 2021-07-08 12:57 | XR_ITS ---
WS: [id number] Exam: XR foot RT min 3V* [id number] Date/Time of Exam: 07/08/2021 1:01 PM Reason For Exam: post op Comparison 07/01/2021. The right forefoot has been amputated. The proximal second through the fifth metatarsals remaining. O ld nonunion fracture the proximal fifth metatarsal. The first ray has been completely amputated. A oliver rgical drain is noted. No obvious bone destruction. Degenerative changes in the midfoot joints. Vascu lar calcifications about the foot and ankle. XR/XR foot RT min 3V* [id number] IMPRESSION: 1. Right forefoot amputation showing no significant change. Surgical drain is i n place. Soft tissue swelling of the amputation stump.
--- NOTE | 2021-07-08 13:04 | PC.NUTR ---
Nutrition note: Nurse requested RD to clarify diet order. Pt previously on Renal diabetic dialysis diet, was changed to Renal dialysis. Have clarified with MD and received order to resume previous diet. Have entered.
--- NOTE | 2021-07-08 15:15 | P.PN_ITS ---
Subjective Subjective: Interval history: Seen this morning very briefly. He was heading to the OR for his debridement. I was unable to examine the patient. He did state that he was feeling okay and had no complaints. Vitals/I&O/Wt Last Vital Signs Temp 98.6 F 07/08/21 11:29 Pulse 93 07/08/21 11:29 Resp 18 07/08/21 12:00 BP 115/64 07/08/21 11:29 Pulse Ox 97 07/08/21 11:58 07/08/21 07/08/21 07/08/21 06:59 14:59 22:59 Intake Total 350 / 1850 Output Total 700 / 1200 0 / 0 Balance -350 / 650 Weight last 48 hrs Weight 142.882 kg Physical Exam Narrative: EXAM NARRATIVE: Unable to examine today. Patient was heading to the OR. Data : 07/08/21 04:36 07/08/21 06:21 Micro: Microbiology 07/06/21 20:22 Blood Culture - Preliminary Blood NEGATIVE TO DATE 07/06/21 20:15 Blood Culture - Preliminary Blood NEGATIVE TO DATE A&P Assessment and plan (1) Hypertension: Status: Chronic Qualifiers: Hypertension type: essential hypertension Qualified Code(s): I10 - Essential (primary) hypertension (2) DM type 2 (diabetes mellitus, type 2): Status: Chronic Qualifiers: Diabetes mellitus complication detail: with polyneuropathy Diabetes mellitus complication status: with neurologic complications Diabetes mellitus mcfp insulin use: without mcfp use Qualified Code(s): E11.42 - Type 2 diabetes mellitus with diabetic polyneuropathy (3) Atrial fibrillation, chronic: Status: Chronic (4) Peripheral vascular disease: Status: Chronic (5) End stage renal disease: Status: Chronic (6) History of transmetatarsal amputation of foot: 06/10/21 with delayed closure on 06/14/2021 Performed due to osteomyelitis and gangrene of the right forefoot with polymicrobial cultures Has been on oral Augmentin and Cipro outpatient Status: Chronic (7) Needs peripherally inserted central catheter (PICC): requires jugular approach via interventional radiology which is not available at this facility Status: Acute (8) Dehiscence of amputation stump: Status: Acute (9) Non-pressure chronic ulcer of other part of right foot with necrosis of muscle: Status: Chronic Additional A&P Information History of gout on allopurinol Hypothyroidism on levothyroxine History of depression on citalopram Chronic pain on as needed Flexeril and oxycodone Chronic PPI use -Plan is to continue linezolid and Zosyn Blood cultures CRP lactic acid pending Covid PCR pending Nephrology is consulted and following for peritoneal dialysis. Dr. Messer saw the patient this morning. Amlodipine losartan torsemide were held on admission due to borderline blood pressures. I will monitor blood pressure and slowly add medications as needed. We will add back losartan today. Continue to hold home glipizide. Will place patient on sliding scale while inpatient Continue iron. We will also continue to monitor hemoglobin for further drop. F or now we will continue aspirin but if there is evidence of further hemoglobin dropping or bleeding we will consider holding it. Continue home allopurinol, levothyroxine, citalopram. PPI also held due to high risk of C. difficile infection since patient is going to be getting antibiotics. -Going for debridement today. Will await recommendations from Dr. Woodall and Dr. Hackett for further management. Fluids: None indicated Electrolytes: Replete as needed Nutrition: Cardiac low-salt low carbohydrate diabetic diet Activity: As tolerated out of bed to chair DVT prophylaxis: Heparin subcu. I have called [facility] but there is no bed available today. Attestations Medical Necessity Statement*: Requires greater than 48-hour inpatient stay. Time Spent in Patient Care: less than 15 minutes Coding Level of Care Code Acute Catalog Library Assistant for [facility] Fwd Diagnoses Hypertension I10 Hypertension type: essential hypertension DM type 2 (diabetes mellitus, type 2) E11.42 Diabetes mellitus complication detail: with polyneuropathy Diabetes mellitus complication status: with neurologic complications Diabetes mellitus mcfp insulin use: without intermediate card tender use Atrial fibrillation, chronic I48.20 Peripheral vascular disease I73.9 End stage renal disease N18.6 History of transmetatarsal amputation of foot Z89.439 Needs peripherally inserted central catheter (PICC) Z45.2 Dehiscence of amputation stump T87.81 Non-pressure chronic ulcer of other part of right foot with necrosis of muscle L97.513
[2021-07-08] MEDS: sevelamer 800 mg Tablet 1600 MG PO ×2 (15:20→21:12)
[2021-07-08] MEDS: acetaminophen 325 mg Tablet 650 MG PO (15:59)
[2021-07-08] MEDS: Dianeal low Ca w/2.5% dex 2,000 mL Bag 2000 ML INTRAPERIT (17:58)
--- NOTE | 2021-07-08 20:56 | PC.NURSE ---
i reported high pulse 112 to nurse
[2021-07-08] MEDS: atorvastatin 40 mg Tablet 20 MG PO (21:12)
[2021-07-08] MEDS: linezolid premix 600 MG/300 ML PREMIX 300 MG IV (22:02)
[2021-07-09] VITALS (16 sets, daily range): BP systolic 113–149; BP diastolic 39–87; PULSE 75–98; RESP 14–18; TEMP 36.3–36.8; O2SAT 92–95
[2021-07-09] MEDS: Dianeal low Ca w/2.5% dex 2,000 mL Bag 2000 ML INTRAPERIT ×4 (01:12→21:40)
[2021-07-09 05:21] LABS: Basophils % 0.3 %; Eosinophils # 0.4 10^3/uL (0.0-0.8); Eosinophils % 3.7 %; Hematocrit 22.2 % (42.0-52.0); Hemoglobin 6.8 g/dL (11.7-16.6); Lymphocytes # 1.1 10^3/uL (0.8-4.8); Lymphocytes % 9.6 %; Mean Corpuscular HGB Conc 30.6 g/dL (30.0-36.0); Mean Corpuscular Hemoglobin 30.2 pg (28.0-34.0); Mean Corpuscular Volume 98.7 fl (80-94); Monocytes # 1.6 10^3/uL (0.2-0.9); Monocytes % 14.1 %; Neutrophils # 8.25 10^3/uL (1.8-7.7); Neutrophils % 71.2 %; Nucleated Red Blood Cells % 0 %; Platelet Count 218 10^3/cmm (130-400); Red Blood Count 2.25 10^6/uL (4.1-5.3); Red Cell Distribution Width 14.9 % (12.1-15.1); White Blood Count 11.6 10^3/uL (4.0-10.0)
[2021-07-09 05:51] LABS: Anion Gap 19.6 (5-19); Blood Urea Nitrogen 58 mg/dL (8-23); Calcium 9.3 mg/dL (8.5-10.5); Carbon Dioxide 23 mmol/L (22-29); Chloride 93 mmol/L (98-107); Glomerular Filtration Rate 7.8 mL/min (90-130); Glucose 170 mg/dL (65-115); Magnesium 1.8 mg/dL (1.7-2.3); Osmolality Calculated 294 mOsm/kg (285-295); Potassium 3.6 mmol/L (3.5-5.1); Sodium 132 mmol/L (136-145)
[2021-07-09 06:46] LABS: Glucose Point of Care 237 mg/dL (70-110)
[2021-07-09] MEDS: allopurinol 100 mg Tablet PO (08:03)
[2021-07-09] MEDS: sevelamer 800 mg Tablet 1600 MG PO ×3 (08:03→21:09)
[2021-07-09] MEDS: aspirin 81 mg EC Tablet PO (08:04)
[2021-07-09] MEDS: metoprolol tartrate 50 mg Tablet PO ×2 (08:04→21:08)
[2021-07-09] MEDS: iron polysaccharide complex 150 mg Capsule PO ×2 (08:04→16:59)
[2021-07-09] MEDS: lactobacillus 1 Tablet 1 TAB PO ×2 (08:04→16:58)
[2021-07-09] MEDS: sennosides-docusate Tablet 1 TAB PO (08:04)
[2021-07-09] MEDS: losartan 50 mg Tablet 100 MG PO (08:04)
[2021-07-09] MEDS: citalopram 20 mg Tablet PO (08:04)
[2021-07-09] MEDS: levothyroxine 175 mcg Tablet PO (08:04)
[2021-07-09] MEDS: heparin 5,000 unit/mL INJ 1 mL 5000 UNIT SUBCUT ×2 (08:06→21:08)
--- NOTE | 2021-07-09 08:43 | PM.PN ---
Subjective Subjective: Interval history: seen via telehealth. Requesting nonrenal diet so he can increase protein intake Medications: Reviewed: Yes Vitals/I&O/Wt Last Vital Signs Temp 98 F 07/09/21 07:24 Pulse 90 07/09/21 07:24 Resp 16 07/09/21 07:24 BP 143/77 07/09/21 08:04 Pulse Ox 94 07/09/21 07:24 07/08/21 07/09/21 07/09/21 22:59 06:59 14:59 Intake Total 1290 / 1540 670 / 2210 Output Total 660 / 660 1550 / 2210 Balance 630 / 880 -880 / 0 Physical Exam Const: COMMON NORMALS: no acute distress GENERAL APPEARANCE: cooperative Data : 07/09/21 03:49 07/09/21 03:49 A&P Additional A&P Information Impression: 1. ESRD on peritoneal dialysis. UF about 400 ml per exchange now on 2.5% 2. Osteomylitis, s/p debridement yesterday 3. Anemia, iron replete, Hb lower. Received 20,000 u procrit sq yesterday; to receive 1u RBC today. Redose procrit 07/12 4. Hyponatremia, likely hypervolemic. stable 5. Poor nutrition, phos and potassium in acceptable range. will change to diabetic diet - no protein restriction Recommend: Continue PD to 2.5% QID. Awaiting transfer for tunneled picc placement Attestations Medical Necessity Statement*: per primary service Time Spent in Patient Care: 16 - 35 minutes Coding Level of Care Code Acute Conventional Underwriter for Breanna Aguero
--- NOTE | 2021-07-09 11:55 | PM.PN ---
Subjective Subjective: Interval history: Seen this morning. He is doing well at this point. He has a wound VAC attached which is draining. Patient denies any pain at surgical site at this time. He appears very comfortable. I did let him know about the transfer situation that bed availability is low. Hemoglobin 6.8 this morning. He will be giving 1 unit of transfusion today. Will check posttransfusion CBC. Vitals/I&O/Wt Last Vital Signs Temp 97.6 F 07/09/21 11:28 Pulse 88 07/09/21 11:28 Resp 16 07/09/21 11:28 BP 136/80 07/09/21 11:28 Pulse Ox 95 07/09/21 11:28 07/08/21 07/09/21 07/09/21 22:59 06:59 14:59 Intake Total 1290 / 1540 670 / 2210 500 / 500 Output Total 660 / 660 1550 / 2210 Balance 630 / 880 -880 / 0 500 / 500 Physical Exam Narrative: EXAM NARRATIVE: General: Alert oriented x3, patient seen sitting up in bed in good spirits appearing happy. He is quite pleasant to talk to. HEENT: Normocephalic, atraumatic, EOMI, breathing room air Cardio: Irregularly irregular rhythm, normal S1-S2, no murmurs rubs gallops, did not assess JVD due to large neck. Patient clinically appears euvolemic. Respiratory: Good bilateral air entry, no wheezes, no rhonchi present. GI: Abdomen soft, nontender, nondistended, bowel sounds +, peritoneal dialysis catheter in place. Obese rounded abdomen Behavior: Appropriate and cooperative Extremities: Wound VAC present on right toe draining actively. Trace lower extremity edema left lower extremity. Data : 07/09/21 03:49 07/09/21 03:49 A&P Assessment and plan (1) Hypertension: Status: Chronic Qualifiers: Hypertension type: essential hypertension Qualified Code(s): I10 - Essential (primary) hypertension (2) DM type 2 (diabetes mellitus, type 2): Status: Chronic Qualifiers: Diabetes mellitus complication detail: with polyneuropathy Diabetes mellitus complication status: with neurologic complications Diabetes mellitus oil heaterman insulin use: without oil heaterman use Qualified Code(s): E11.42 - Type 2 diabetes mellitus with diabetic polyneuropathy (3) Atrial fibrillation, chronic: Status: Chronic (4) Peripheral vascular disease: Status: Chronic (5) End stage renal disease: Status: Chronic (6) History of transmetatarsal amputation of foot: 06/10/21 with delayed closure on 06/14/2021 Performed due to osteomyelitis and gangrene of the right forefoot with polymicrobial cultures Has been on oral Augmentin and Cipro outpatient Status: Chronic (7) Needs peripherally inserted central catheter (PICC): requires jugular approach via interventional radiology which is not available at this facility Status: Acute (8) Dehiscence of amputation stump: Status: Acute (9) Non-pressure chronic ulcer of other part of right foot with necrosis of muscle: Status: Chronic Additional A&P Information History of gout on allopurinol Hypothyroidism on levothyroxine History of depression on citalopram Chronic pain on as needed Flexeril and oxycodone Chronic PPI use -Plan is to continue linezolid and Zosyn Blood cultures CRP lactic acid pending Covid PCR pending Nephrology is consulted and following for peritoneal dialysis. Dr. Messer saw the patient this morning. Amlodipine losartan torsemide were held on admission due to borderline blood pressures. I will monitor blood pressure and slowly add medications as needed. Continue losartan. Continue to hold home glipizide. Will place patient on sliding scale while inpatient Continue iron. Hemoglobin 6.8 today. Will order 1 unit packed RBC. Will check postinfusion CBC. Will hold aspirin today. Continue home allopurinol, levothyroxine, citalopram. PPI also held due to high risk of C. difficile infection since patient is going to be getting antibiotics. -Status post debridement today. Will await recommendations from Dr. Woodall and Dr. Hackett for further management. Fluids: None indicated Electrolytes: Replete as needed Nutrition: Consistent carbohydrate diet. Patient does not want to be on a renal diet. He discussed with nephrology about this morning. Activity: As tolerated out of bed to chair DVT prophylaxis: Heparin subcu. We will call [facility] for potential transfer for PICC line placement and internal jugular.. Attestations Medical Necessity Statement*: Will require another 48 hours. Coding Level of Care Code Acute Inspector And Clerk for Breanna Aguero Diagnoses Hypertension I10 Hypertension type: essential hypertension DM type 2 (diabetes mellitus, type 2) E11.42 Diabetes mellitus complication detail: with polyneuropathy Diabetes mellitus complication status: with neurologic complications Diabetes mellitus detention insulin use: without detention use Atrial fibrillation, chronic I48.20 Peripheral vascular disease I73.9 End stage renal disease N18.6 History of transmetatarsal amputation of foot Z89.439 Needs peripherally inserted central catheter (PICC) Z45.2 Dehiscence of amputation stump T87.81 Non-pressure chronic ulcer of other part of right foot with necrosis of muscle L97.513
[2021-07-09 11:58] LABS: Glucose Point of Care 251 mg/dL (70-110)
--- NOTE | 2021-07-09 12:13 | PC.SOCIAL ---
IMM Update pg 2 of IMM updated and reviewed w/ patient. Copy provided.
[2021-07-09] MEDS: linezolid premix 600 MG/300 ML PREMIX 300 MG IV (12:28)
[2021-07-09] MEDS: oxyCODONE 5 mg IR Tab/Cap PO ×2 (16:58→21:37)
[2021-07-09 17:08] LABS: Glucose Point of Care 218 mg/dL (70-110)
[2021-07-09] MEDS: piperacillin-tazobactam 3.375 GM in sodium chloride 0.9% (plus) 50 ML IV (17:58)
[2021-07-09] MEDS: insulin lispro 100 unit/1 mL SUBCUT ×3 (17:59→21:39)
[2021-07-09 19:11] LABS: Basophils % 0.3 %; Eosinophils # 0.6 10^3/uL (0.0-0.8); Hematocrit 23.8 % (42.0-52.0); Hemoglobin 7.6 g/dL (11.7-16.6); Lymphocytes # 1.1 10^3/uL (0.8-4.8); Lymphocytes % 10.1 %; Mean Corpuscular HGB Conc 31.9 g/dL (30.0-36.0); Mean Corpuscular Hemoglobin 30.9 pg (28.0-34.0); Mean Corpuscular Volume 96.7 fl (80-94); Mean Platelet Volume 9.7 fL (7.4-10.4); Monocytes # 1.3 10^3/uL (0.2-0.9); Monocytes % 12.6 %; Neutrophils # 7.38 10^3/uL (1.8-7.7); Neutrophils % 69.3 %; Nucleated Red Blood Cells % 0 %; Platelet Count 219 10^3/cmm (130-400); Red Blood Count 2.46 10^6/uL (4.1-5.3); Red Cell Distribution Width 15.2 % (12.1-15.1); White Blood Count 10.7 10^3/uL (4.0-10.0)
[2021-07-09] MEDS: sodium chloride 0.9% (100 ml) 100 ML 50 ML (19:50)
[2021-07-09] MEDS: atorvastatin 40 mg Tablet 20 MG PO (21:09)
[2021-07-09] MEDS: acetaminophen 325 mg Tablet 650 MG PO (23:16)
[2021-07-09] MEDS: cyclobenzaprine 10 mg Tablet 5 MG PO (23:17)
[2021-07-10] VITALS (14 sets, daily range): BP systolic 136–155; BP diastolic 67–87; PULSE 72–95; RESP 14–18; TEMP 36.4–36.8; O2SAT 95–97
[2021-07-10 05:16] LABS: Basophils % 0.4 %; Eosinophils # 0.7 10^3/uL (0.0-0.8); Eosinophils % 7.1 %; Hematocrit 22.9 % (42.0-52.0); Hemoglobin 7.1 g/dL (11.7-16.6); Lymphocytes # 1.3 10^3/uL (0.8-4.8); Lymphocytes % 12.2 %; Mean Corpuscular Hemoglobin 30.2 pg (28.0-34.0); Mean Corpuscular Volume 97.4 fl (80-94); Mean Platelet Volume 9.7 fL (7.4-10.4); Monocytes # 1.1 10^3/uL (0.2-0.9); Monocytes % 10.3 %; Neutrophils # 7.05 10^3/uL (1.8-7.7); Neutrophils % 68.3 %; Nucleated Red Blood Cells % 0 %; Platelet Count 205 10^3/cmm (130-400); Red Blood Count 2.35 10^6/uL (4.1-5.3); Red Cell Distribution Width 15.5 % (12.1-15.1); White Blood Count 10.3 10^3/uL (4.0-10.0)
[2021-07-10 05:39] LABS: Anion Gap 17.5 (5-19); Blood Urea Nitrogen 59 mg/dL (8-23); Calcium 9.1 mg/dL (8.5-10.5); Carbon Dioxide 25 mmol/L (22-29); Chloride 92 mmol/L (98-107); Glomerular Filtration Rate 7.5 mL/min (90-130); Glucose 156 mg/dL (65-115); Osmolality Calculated 292 mOsm/kg (285-295); Potassium 3.5 mmol/L (3.5-5.1); Sodium 131 mmol/L (136-145)
[2021-07-10] MEDS: piperacillin-tazobactam 3.375 GM in sodium chloride 0.9% (plus) 50 ML IV (05:39)
[2021-07-10 06:37] LABS: Glucose Point of Care 175 mg/dL (70-110)
--- NOTE | 2021-07-10 06:54 | P.PN_ITS ---
Subjective Subjective: Interval history: seen via telemedicine. No complaints. RN reports PD fluid clear. UF 100 - 400 ml Q exchange Medications: Reviewed: Yes Vitals/I&O/Wt Last Vital Signs Temp 98.0 F 07/10/21 03:53 Pulse 82 07/10/21 03:53 Resp 14 07/10/21 03:53 BP 155/67 07/10/21 03:53 Pulse Ox 95 07/10/21 03:53 07/09/21 07/09/21 07/10/21 14:59 22:59 06:59 Intake Total 920 / 920 590 / 1510 80 / 1590 Output Total 700 / 700 2850 / 3550 Balance 920 / 920 -110 / 810 -2770 / -1960 Physical Exam Const: COMMON NORMALS: no acute distress GENERAL APPEARANCE: cooperative Skin: NARRATIVE SKIN EXAM: RN reports PD exit site no redness or drainage Data : 07/10/21 04:24 07/10/21 04:24 A&P Additional A&P Information Impression: 1. ESRD on peritoneal dialysis. 2. Osteomylitis, s/p debridement 3. Anemia, iron replete, Hb lower. Received 20,000 u procrit sq on 07/08; Redose procrit MWF 4. Hyponatremia, likely hypervolemic. stable 5. Poor nutrition, phos and potassium in acceptable range. continue diabetic diet - no protein restriction Recommend: Continue PD to 2.5% QID. Awaiting transfer for tunneled picc placeme nt Attestations Medical Necessity Statement*: see above Time Spent in Patient Care: 16 - 35 minutes Coding Level of Care Code Acute Supervisor [employer] for Breanna Aguero
[2021-07-10] MEDS: Dianeal low Ca w/2.5% dex 2,000 mL Bag 2000 ML INTRAPERIT ×3 (06:55→20:51)
[2021-07-10] MEDS: insulin lispro 100 unit/1 mL SUBCUT ×3 (10:44→22:10)
[2021-07-10] MEDS: losartan 50 mg Tablet 100 MG PO (10:45)
[2021-07-10] MEDS: lactobacillus 1 Tablet 1 TAB PO ×2 (10:45→18:17)
[2021-07-10] MEDS: levothyroxine 175 mcg Tablet PO (10:45)
[2021-07-10] MEDS: sevelamer 800 mg Tablet 1600 MG PO ×2 (10:45→20:50)
[2021-07-10] MEDS: iron polysaccharide complex 150 mg Capsule PO ×2 (10:46→18:17)
[2021-07-10] MEDS: citalopram 20 mg Tablet PO (10:46)
[2021-07-10] MEDS: heparin 5,000 unit/mL INJ 1 mL 5000 UNIT SUBCUT ×2 (10:47→20:45)
[2021-07-10] MEDS: sennosides-docusate Tablet 1 TAB PO (10:48)
--- NOTE | 2021-07-10 11:13 | PM.PN ---
Subjective Subjective: Interval history: Patient seen bedside he is 2 days status post I&D right. Wound VAC in place set at 125mmHg negative pressure continuous 200 cc of serosanguineous fluid in the canister. Patient sleeping comfortably when entering the room. Tolerating regular diet. Patient denies any subjective nausea, vomiting, fever, chills, shortness of breath or chest pain. Awaiting transfer to [facility] in [place] for placement of internal jugular PICC line. Plans ultimately are to be discharged home with home health to receive daily infusions of IV antibiotics to treat osteomyelitis right foot minimum 6 weeks. Infectious diseases on board appreciate the recommendations. Social work is confirming that this is a viable process in the home health can still administer antibiotics through a PICC line inserted to the jugular. Patient's is bedside. Vitals/I&O/Wt Last Vital Signs Temp 97.8 F 07/10/21 07:31 Pulse 72 07/10/21 07:31 Resp 18 07/10/21 07:31 BP 141/87 07/10/21 10:45 Pulse Ox 96 07/10/21 07:31 07/09/21 07/10/21 07/10/21 22:59 06:59 14:59 Intake Total 590 / 1510 80 / 1590 Output Total 700 / 700 2850 / 3550 Balance -110 / 810 -2770 / -1960 Physical Exam Narrative: EXAM NARRATIVE: Patient is alert and oriented ?3 and in no acute distress. The following is a focused right lower extremity exam. VASCULAR: Dorsalis pedis and posterior tibial arteries palpable +2. Capillary refill time less than 3 seconds to the distal hallux bilaterally. Calf is supple and nontender proximally and distally. Mild edema at the operative site consistent with postoperative course. NEUROLOGICAL: Protective sensation intact to light touch. DERMATOLOGICAL: Significantly improved amputation site right foot has bleeding skin margins without obvious necrosis, wound VAC changed today. MUSCULOSKELETAL: Tenderness about the operative site consistent with postoperative course. No pain with posterior calf squeeze. Further musculoskeletal exam deferred due to postoperative state. Data : 07/10/21 04:24 07/10/21 04:24 A&P Assessment and plan (1) Peripheral vascular disease: Status: Chronic (2) DM type 2 (diabetes mellitus, type 2): Status: Chronic Qualifiers: Diabetes mellitus complication detail: with polyneuropathy Diabetes mellitus complication status: with neurologic complications Diabetes mellitus petroleum terminal plant operator insulin use: without petroleum terminal plant operator use Qualified Code(s): E11.42 - Type 2 diabetes mellitus with diabetic polyneuropathy (3) End stage renal disease: Status: Chronic (4) Non-pressure chronic ulcer of other part of right foot with necrosis of bone: Status: Acute Incision and debridement right foot with wound VAC application performed 07/08/2021 patient doing well postoperatively with improved granulation tissue Patient on Zyvox and Levaquin empirically Wound VAC dressing change performed today 07/10/2021 total of 200 mL of serosanguineous drainage in the canister from the time of surgery this was a 48-hour time period. Will need wound VAC dressing change Sunday and Sunday this week 06/12/2021 and 06/14/2021 Nonweightbearing to the right lower extremity. Patient will need transfer to [facility] for placement of PICC line through the jugular Attestations Medical Necessity Statement*: Right diabetic foot infection Coding Level of Care Code Acute Rn Procedure for [facility] Diagnoses Peripheral vascular disease I73.9 DM type 2 (diabetes mellitus, type 2) E11.42 Diabetes mellitus complication detail: with polyneuropathy Diabetes mellitus complication status: with neurologic complications Diabetes mellitus petroleum terminal plant operator insulin use: without penitentiary use End stage renal disease N18.6 Non-pressure chronic ulcer of other part of right foot with necrosis of bone L97.514
[2021-07-10] MEDS: allopurinol 100 mg Tablet PO (11:40)
[2021-07-10] MEDS: metoprolol tartrate 50 mg Tablet PO ×2 (11:40→20:50)
[2021-07-10] MEDS: linezolid premix 600 MG/300 ML PREMIX 300 MG IV (11:41)
[2021-07-10 12:08] LABS: Glucose Point of Care 265 mg/dL (70-110)
[2021-07-10 17:00] LABS: Glucose Point of Care 214 mg/dL (70-110)
--- NOTE | 2021-07-10 17:16 | PM.PN ---
Subjective Subjective: Interval history: Patient seen and examined this morning. He is doing well. Wound VAC is draining. 125 cc output. Patient was also seen again with podiatry physician present in the room. Patient is doing well and has no complaints at this time. Vitals/I&O/Wt Last Vital Signs Temp 98.1 F 07/10/21 16:00 Pulse 79 07/10/21 16:00 Resp 16 07/10/21 16:00 BP 136/75 07/10/21 16:00 Pulse Ox 96 07/10/21 16:00 07/10/21 07/10/21 07/10/21 06:59 14:59 22:59 Intake Total 80 / 1590 470 / 470 250 / 720 Output Total 2850 / 3550 870 / 870 Balance -2770 / -1960 -400 / -400 250 / -150 Physical Exam Narrative: EXAM NARRATIVE: General: Alert oriented x3, patient seen sitting up in bed in good spirits appearing happy. H HEENT: Normocephalic, atraumatic, EOMI, breathing room air Cardio: Irregularly irregular rhythm, normal S1-S2, no murmurs rubs gallops, did not assess JVD due to large neck. Patient clinically appears euvolemic. Respiratory: Good bilateral air entry, no wheezes, no rhonchi present. GI: Abdomen soft, nontender, nondistended, bowel sounds +, peritoneal dialysis catheter in place. Obese rounded abdomen Behavior: Appropriate and cooperative Extremities: Wound VAC present on right toe draining actively. Trace lower extremity edema left lower extremity. Data : 07/10/21 04:24 07/10/21 04:24 A&P Assessment and plan (1) Hypertension: Status: Chronic Qualifiers: Hypertension type: essential hypertension Qualified Code(s): I10 - Essential (primary) hypertension (2) DM type 2 (diabetes mellitus, type 2): Status: Chronic Qualifiers: Diabetes mellitus complication detail: with polyneuropathy Diabetes mellitus complication status: with neurologic complications Diabetes mellitus tank terminal gauger insulin use: without tank terminal gauger use Qualified Code(s): E11.42 - Type 2 diabetes mellitus with diabetic polyneuropathy (3) Atrial fibrillation, chronic: Status: Chronic (4) Peripheral vascular disease: Status: Chronic (5) End stage renal disease: Status: Chronic (6) History of transmetatarsal amputation of foot: 06/10/21 with delayed closure on 06/14/2021 Performed due to osteomyelitis and gangrene of the right forefoot with polymicrobial cultures Has been on oral Augmentin and Cipro outpatient Status: Chronic (7) Needs peripherally inserted central catheter (PICC): requires jugular approach via interventional radiology which is not available at this facility Status: Acute (8) Dehiscence of amputation stump: Status: Acute (9) Non-pressure chronic ulcer of other part of right foot with necrosis of muscle: Status: Chronic Additional A&P Information History of gout on allopurinol Hypothyroidism on levothyroxine History of depression on citalopram Chronic pain on as needed Flexeril and oxycodone Chronic PPI use Blood cultures negative. Covid PCR pending Nephrology is consulted and following for peritoneal dialysis. Dr. Messer saw the patient this morning. Amlodipine losartan torsemide were held on admission due to borderline blood pressures. I will monitor blood pressure and slowly add medications as needed. Continue losartan. Continue to hold home glipizide. Will place patient on sliding scale while inpatient Continue iron. Hemoglobin 6.8 today. Will order 1 unit packed RBC. Will check postinfusion CBC. Will hold aspirin today. Continue home allopurinol, levothyroxine, citalopram. PPI also held due to high risk of C. difficile infection since patient is going to be getting antibiotics. -Status post debridement 07/08. Will await recommendations from Dr. Woodall and Dr. Hackett for further management. Patient will need higher level of care namely vascular surgery consult, interventional radiology for specialized PICC line placement into internal jugular. Patient has a history of septic thrombophlebitis and right shoulder septic arthritis and is a peritoneal dialysis patient with fistula in right arm. He will be requiring a PICC line placed into the jugular for outpatient IV antibiotics. We do not have infectious disease service available at our hospital at this time and also do not have interventional radiology and do not have vascular surgery. Patient will need to be transferred to higher level of care. Discussed case with Dr. Hackett infectious the specialist today. We will keep patient on IV linezolid and imipenem at this time based on wound culture results. Fluids: None indicated Electrolytes: Replete as needed Nutrition: Consistent carbohydrate diet. Patient does not want to be on a renal diet. He discussed with nephrology about this morning. Activity: As tolerated out of bed to chair DVT prophylaxis: Heparin subcu. Attestations Medical Necessity Statement*: Will require inpatient transfer to [facility] for higher level of care. Time Spent in Patient Care: 16 - 35 minutes Coding Level of Care Code Acute Valance Cutter for Joseg Fwd Diagnoses Hypertension I10 Hypertension type: essential hypertension DM type 2 (diabetes mellitus, type 2) E11.42 Diabetes mellitus complication detail: with polyneuropathy Diabetes mellitus complication status: with neurologic complications Diabetes mellitus snf insulin use: without tank terminal gauger use Atrial fibrillation, chronic I48.20 Peripheral vascular disease I73.9 End stage renal disease N18.6 History of transmetatarsal amputation of foot Z89.439 Needs peripherally inserted central catheter (PICC) Z45.2 Dehiscence of amputation stump T87.81 Non-pressure chronic ulcer of other part of right foot with necrosis of muscle L97.513
[2021-07-10] MEDS: atorvastatin 40 mg Tablet 20 MG PO (20:50)
[2021-07-10 22:02] LABS: Glucose Point of Care 249 mg/dL (70-110)
[2021-07-10] MEDS: oxyCODONE 5 mg IR Tab/Cap PO (22:09)
[2021-07-10] MEDS: linezolid 600 mg Tablet PO (22:10)
[2021-07-11] VITALS (8 sets, daily range): BP systolic 132–159; BP diastolic 55–90; PULSE 77–96; RESP 16–18; TEMP 36.4–37.2; O2SAT 94–95
[2021-07-11 03:06] LABS: Basophils # 0.1 10^3/uL (0.0-0.1); Basophils % 0.4 %; Eosinophils # 0.7 10^3/uL (0.0-0.8); Eosinophils % 6.1 %; Hematocrit 27.4 % (42.0-52.0); Hemoglobin 8.6 g/dL (11.7-16.6); Lymphocytes % 8.9 %; Mean Corpuscular HGB Conc 31.4 g/dL (30.0-36.0); Mean Corpuscular Volume 95.5 fl (80-94); Mean Platelet Volume 9.6 fL (7.4-10.4); Monocytes # 1.1 10^3/uL (0.2-0.9); Monocytes % 9.4 %; Neutrophils # 8.37 10^3/uL (1.8-7.7); Neutrophils % 73.5 %; Nucleated Red Blood Cells % 0 %; Platelet Count 206 10^3/cmm (130-400); Red Blood Count 2.87 10^6/uL (4.1-5.3); Red Cell Distribution Width 15.7 % (12.1-15.1); White Blood Count 11.4 10^3/uL (4.0-10.0)
[2021-07-11 03:26] LABS: Blood Urea Nitrogen 57 mg/dL (8-23); Calcium 9.1 mg/dL (8.5-10.5); Carbon Dioxide 24 mmol/L (22-29); Chloride 93 mmol/L (98-107); Glucose 180 mg/dL (65-115); Osmolality Calculated 294 mOsm/kg (285-295); Sodium 132 mmol/L (136-145)
[2021-07-11 03:29] LABS: Anion Gap 19.1 (5-19); Potassium 4.1 mmol/L (3.5-5.1)
[2021-07-11 06:29] LABS: Glucose Point of Care 172 mg/dL (70-110)
--- NOTE | 2021-07-11 07:37 | P.PN_ITS ---
Subjective Subjective: Interval history: feels better. awaits transfer for IJ Picc line. s/p 1 u prbc tx. has a rt lower ext wound vac Medications: Reviewed: Yes Medication Review Details: Current Medications Acetaminophen (Acetaminophen 325 Mg Tablet) 650 mg PO Q6H PRN PRN Reason: Mild/Mod Pain Or Temp >/= 101 Last Admin: 07/09/21 23:16 Dose: 650 mg Documented by: Allopurinol (Allopurinol 100 Mg Tablet) 100 mg PO DAILY [facility] Last Admin: 07/10/21 11:40 Dose: 100 mg Documented by: Aspirin (Aspirin 81 Mg Ec Tablet) 81 mg PO DAILY [facility] Last Admin: 07/09/21 08:04 Dose: 81 mg Documented by: Atorvastatin Calcium (Atorvastatin 40 Mg Tablet) 20 mg PO BEDTIME [facility] Last Admin: 07/10/21 20:50 Dose: 20 mg Documented by: Bisacodyl (Bisacodyl 5 Mg Tablet) 10 mg PO DAILY PRN; Protocol PRN Reason: Constipation (see protocol) Citalopram Hydrobromide (Citalopram 20 Mg Tablet) 20 mg PO DAILY [facility] Last Admin: 07/10/21 10:46 Dose: 20 mg Documented by: Clonidine HCl (Clonidine 0.1 Mg Tablet) 0.1 mg PO Q4H PRN PRN Reason: SBP >/=175 Cyclobenzaprine HCl (Cyclobenzaprine 10 Mg Tablet) 5 mg PO TID PRN PRN Reason: MUSCLE SPASMS Last Admin: 07/09/21 23:17 Dose: 5 mg Documented by: Dextrose (Dextrose 50% Syringe 50 Ml) 25 ml IVP ONCE PRN; Protocol PRN Reason: hypoglycemia protocol Dextrose (Dextrose 50% Syringe 50 Ml) 50 ml IVP PRN PRN; Protocol PRN Reason: hypoglycemia protocol Epoetin Jonathon (Epoetin Jonathon 1000 Unit/0.05 Ml (Esrd)) 20,000 unit SUBCUT MoWeFr [facility] Gentamicin Sulfate (Gentamicin 0.1% Cream 15 Gm) 1 applic TOPICAL DAILY [facility] Last Admin: 07/10/21 10:25 Dose: 1 applic Documented by: Glucagon (Glucagon 1 Mg/Ml Inj 1 Ml) 1 mg IM ONCE PRN; Protocol PRN Reason: Adult Acute Hypoglycemia Prot. Heparin Sodium (Porcine) (Heparin 5,000 Unit/Ml Inj 1 Ml) 5,000 unit SUBCUT Q12H [facility] Last Admin: 07/10/21 20:45 Dose: 5,000 unit Documented by: Dextrose (D5w) 500 mls @ 100 mls/hr IV ONCE PRN; Protocol PRN Reason: Adult Acute Hypoglycemia Prot Imipenem/Cilastatin Sodium 250 (mg/ Sodium Chloride) 100 mls @ 200 mls/hr IV Q12H [facility] Last Infusion: 07/11/21 06:14 Dose: Infused Documented by: Insulin Human Lispro (Insulin Lispro 100 Unit/1 Ml) 0 unit SUBCUT WM&BEDTIME [facility]; Protocol Last Admin: 07/10/21 22:10 Dose: 8 unit Documented by: Lactobacillus Acidophilus (Lactobacillus 1 Tablet) 1 tab PO BID [facility] Last Admin: 07/10/21 18:17 Dose: 1 tab Documented by: Levothyroxine Sodium (Levothyroxine 175 Mcg Tablet) 175 mcg PO DAILY [facility] Last Admin: 07/10/21 10:45 Dose: 175 mcg Documented by: Linezolid (Linezolid 600 Mg Tablet) 600 mg PO Q12H [facility] Last Admin: 07/10/21 22:10 Dose: 600 mg Documented by: Losartan Potassium (Losartan 50 Mg Tablet) 100 mg PO DAILY [facility] Last Admin: 07/10/21 10:45 Dose: 100 mg Documented by: Metoprolol Tartrate (Metoprolol Tartrate 50 Mg Tablet) 50 mg PO BID@0900,2100 [facility] Last Admin: 07/10/21 20:50 Dose: 50 mg Documented by: Ondansetron HCl (Ondansetron 2 Mg/Ml Sdv 2 Ml) 4 mg IVP Q8H PRN PRN Reason: vomiting, or N/V if npo Ondansetron HCl (Ondansetron 4 Mg Tablet) 4 mg PO Q8H PRN PRN Reason: NAUSEA Oxycodone HCl (Oxycodone 5 Mg Ir Tab/Cap) 5 mg PO Q4H PRN PRN Reason: MODERATE TO SEVERE PAIN Last Admin: 07/10/21 22:09 Dose: 5 mg Documented by: Peritoneal Dialysis Solution (Dianeal Low Ca W/2.5% Dex 2,000 Ml Bag) 2,000 ml INTRAPERIT QID [facility] Last Admin: 07/10/21 22:09 Dose: Not Given Documented by: Polysaccharide Iron Complex (Iron Polysaccharide Complex 150 Mg Capsule) 150 mg PO BIDWM [facility] Last Admin: 07/10/21 18:17 Dose: 150 mg Documented by: Senna/Docusate Sodium (Sennosides-Docusate Tablet) 1 tab PO DAILY [facility] Last Admin: 07/10/21 10:48 Dose: 1 tab Documented by: Sevelamer Carbonate (Sevelamer 800 Mg Tablet) 1,600 mg PO TID [facility] Last Admin: 07/10/21 20:50 Dose: 1,600 mg Documented by: Vitals/I&O/Wt Last Vital Signs Temp 98.9 F 07/11/21 03:31 Pulse 96 07/11/21 03:31 Resp 18 07/11/21 03:31 BP 135/90 07/11/21 03:31 Pulse Ox 94 07/11/21 03:31 07/10/21 07/11/21 07/11/21 22:59 06:59 14:59 Intake Total 490 / 960 4200 / 5160 Output Total 650 / 1520 5600 / 7120 Balance -160 / -560 -1400 / -1960 Physical Exam Narrative: EXAM NARRATIVE: comfortable in bed, NARD vs noted and stable Heent- nc/at, eomi, anicteric neck- no jvp lung clear b/l heart- irreg irreg, +RUBENS abd soft, nt, nd, +BS. rt sided PD catheter c/d/i exit site ext - rt foot wound vac, rt calf edema neuro- a,a, o x 3 skin- no rash mood good Data : 07/11/21 02:54 07/11/21 02:54 A&P Additional A&P Information 66 yr old man 1. OM- s/p RT TMA- still with discharge and wound dehiscence- iv abx and s/p debridement 07-08-21 -h/o MSSA and strep OM -abx per medicine/ ID/ surgery -wbc is 14 -dose abx for ESRD on PD 2. ESRD-CCPD at home- Home prescription is [facility], 8 hours on the cycler, three exchanges of 8 L, 2.5% and 1 day exchange of icodextrin. In hospital we will do CAPD. -cont CAPD 5 exchanges a day w/ 2.5% gluc -has a LUE AVF- was on HD in the past -phos binder 3. a fib per medicine 4. anemia- ferritin 2678- avoid iv iron w/ active infection -EPO -s/p 1 u prbc yesterday 5. DM control 6. hyponatremia - stable w/ dialysis 7. hypothyroidism on levothyroxine- normal tsh 8. gout - uric acid level controlled at 5.5. - allopurinol to 100 mgm po daily as ESRD Patient seen and examined via telemedicine, with the assistance of the bedside RN 30 min spent in evaluation and mgmt of patient discussed w/ nurse in detail -informed consent obtained for telehealth visit Attestations Medical Necessity Statement*: esrd, OM, per medicine Time Spent in Patient Care: 16 - 35 minutes (>than 50% of time spent in counselling and/or direct pt care on unit) . Coding Level of Care Code Acute Group Teacher for Breanna Aguero
[2021-07-11] MEDS: levothyroxine 175 mcg Tablet PO (08:34)
[2021-07-11] MEDS: metoprolol tartrate 50 mg Tablet PO ×2 (08:34→21:30)
[2021-07-11] MEDS: sevelamer 800 mg Tablet 1600 MG PO ×3 (08:34→21:31)
[2021-07-11] MEDS: sennosides-docusate Tablet 1 TAB PO (08:34)
[2021-07-11] MEDS: heparin 5,000 unit/mL INJ 1 mL 5000 UNIT SUBCUT ×2 (08:34→21:31)
[2021-07-11] MEDS: citalopram 20 mg Tablet PO (08:34)
[2021-07-11] MEDS: losartan 50 mg Tablet 100 MG PO (08:34)
[2021-07-11] MEDS: lactobacillus 1 Tablet 1 TAB PO ×2 (08:34→17:58)
[2021-07-11] MEDS: allopurinol 100 mg Tablet PO (08:34)
[2021-07-11] MEDS: insulin lispro 100 unit/1 mL SUBCUT ×4 (08:35→21:31)
[2021-07-11] MEDS: linezolid 600 mg Tablet PO ×2 (10:55→21:32)
[2021-07-11] MEDS: epoetin alfa 1000 Unit/0.05 mL (ESRD) 20000 UNIT SUBCUT (10:56)
[2021-07-11 11:56] LABS: Glucose Point of Care 277 mg/dL (70-110)
[2021-07-11] MEDS: Dianeal low Ca w/2.5% dex 2,000 mL Bag 2000 ML INTRAPERIT ×2 (12:44→17:58)
--- NOTE | 2021-07-11 14:11 | PC.SOCIAL ---
IMM Update: pg 2 of IMM updated and reviewed w/ patient. Copy provided.
[2021-07-11 17:12] LABS: Glucose Point of Care 179 mg/dL (70-110)
--- NOTE | 2021-07-11 17:32 | P.PN_ITS ---
Subjective Subjective: Interval history: No overnight events, awaiting bed availability at [facility], at [facility] he will see Dr. Bhat infectious disease and he will need vascular consult Vitals/I&O/Wt Last Vital Signs Temp 97.7 F 07/11/21 15:49 Pulse 84 07/11/21 15:49 Resp 16 07/11/21 15:49 BP 159/81 07/11/21 15:49 Pulse Ox 94 07/11/21 15:49 07/11/21 07/11/21 07/11/21 06:59 14:59 22:59 Intake Total 4200 / 5160 580 / 580 Output Total 5600 / 7120 750 / 750 Balance -1400 / -1960 -170 / -170 Physical Exam Narrative: EXAM NARRATIVE: Patient seems to be in good spirits EOMI, PERRLA No neurological deficit No audible stridor or wheezing Abdomen soft Blood drainage noted which is minimal quantity about 30 to 50 mL dried in wound VAC right leg with dressing dressing is not soaked with any drainage Data : 07/11/21 02:54 07/11/21 02:54 A&P Additional A&P Information Acute blood loss anemia: status post 2 unit PRBC, hemoglobin stable Wound dehiscence: Needs PICC line: Blood cultures negative End-stage renal disease: Peritoneal dialysis,: appreciate nephro recommendations Awaiting bed availability at [facility] -Status post debridement 07/08. Patient will need higher level of care namely vascular surgery consult, interventional radiology for specialized PICC line placement into internal jugular. Patient has a history of septic thrombophlebitis and right shoulder septic arthritis and is a peritoneal dialysis patient with fistula in right arm. He will be requiring a PICC line placed into the jugular for outpatient IV antibiotics. We do not have infectious disease service available at our hospital at this time and also do not have interventional radiology and do not have vascular surgery. Patient will need to be transferred to higher level of care. We will keep patient on IV linezolid and imipenem at this time based on wound culture results. Attestations Medical Necessity Statement*: Awaiting bed availability at [facility] Time Spent in Patient Care: less than 15 minutes Coding Level of Care Code Acute Director Systems for Breanna Aguero
[2021-07-11 20:21] LABS: Glucose Point of Care 265 mg/dL (70-110)
--- NOTE | 2021-07-11 21:21 | PM.PN ---
Subjective Subjective: Interval history: Status post I&D right foot DOS 07/08/21. Wound VAC in place set at 125mmHg negative pressure continuous 50 cc of serosanguineous fluid in the canister. Patient sleeping comfortably when entering the room. Tolerating regular diet. Patient denies any subjective nausea, vomiting, fever, chills, shortness of breath or chest pain. Awaiting transfer to [facility] in [place] for placement of internal jugular PICC line. Plans ultimately are to be discharged home with home health to receive daily infusions of IV antibiotics to treat osteomyelitis right foot minimum 6 weeks. Infectious diseases on board appreciate the recommendations. Social work is confirming that this is a viable process in the home health can still administer antibiotics through a PICC line inserted to the jugular. Patient's is bedside. Vitals/I&O/Wt Last Vital Signs Temp 98.2 F 07/11/21 19:16 Pulse 90 07/11/21 19:16 Resp 17 07/11/21 19:16 BP 136/83 07/11/21 19:16 Pulse Ox 95 07/11/21 19:16 07/11/21 07/11/21 07/11/21 06:59 14:59 22:59 Intake Total 4200 / 5160 580 / 580 100 / 680 Output Total 5600 / 7120 750 / 750 Balance -1400 / -1960 -170 / -170 100 / -70 Physical Exam Narrative: EXAM NARRATIVE: Patient is alert and oriented ?3 and in no acute distress. The following is a focused right lower extremity exam. VASCULAR: Dorsalis pedis and posterior tibial arteries palpable +2. Capillary refill time less than 3 seconds to the distal hallux bilaterally. Calf is supple and nontender proximally and distally. Mild edema at the operative site consistent with postoperative course. NEUROLOGICAL: Protective sensation intact to light touch. DERMATOLOGICAL: Significantly improved amputation site right foot has bleeding skin margins without obvious necrosis, wound VAC changed today. Wound VAC dressing intact with excellent seal, no leaks, 50 mL of serosanguineous drainage in the canister. MUSCULOSKELETAL: Tenderness about the operative site consistent with postoperative course. No pain with posterior calf squeeze. Further musculoskeletal exam deferred due to postoperative state. Data : 07/11/21 02:54 07/11/21 02:54 Micro: Microbiology 07/06/21 20:22 Blood Culture - Final Blood NO GROWTH AFTER 5 DAYS 07/06/21 20:15 Blood Culture - Final Blood NO GROWTH AFTER 5 DAYS A&P Assessment and plan (1) Peripheral vascular disease: Status: Chronic (2) DM type 2 (diabetes mellitus, type 2): Status: Chronic Qualifiers: Diabetes mellitus complication detail: with polyneuropathy Diabetes mellitus complication status: with neurologic complications Diabetes mellitus assisted insulin use: without flight data technician use Qualified Code(s): E11.42 - Type 2 diabetes mellitus with diabetic polyneuropathy (3) End stage renal disease: Status: Chronic (4) Non-pressure chronic ulcer of other part of right foot with necrosis of bone: Status: Acute (5) Peripheral arterial disease: Status: Acute Incision and debridement right foot with wound VAC application performed 07/08/2021 patient doing well postoperatively with improved granulation tissue Patient on Zyvox and Inipenem guided by cultures on file Wound VAC has excellent seal, last changed 07/10/2021, 50 mL of serosanguineous drainage in the canister Will need wound VAC dressing change every 48-72 hours will need to have discontinued when transferred to [facility] Nonweightbearing to the right lower extremity. Patient will need transfer to [facility] for placement of PICC line through the jugular and vascular consult for PAD. Patient has right transmetatarsal amputation secondary to acute osteomyelitis performed 06/10/2021. Patient underwent primary delayed closure over the course of the next 3 weeks surgical site dehisced, underwent revisional debridement and application of wound VAC 07/08/2021. Suboptimal response clinically on oral antibiotics after initial amputation also concern for progression of peripheral arterial disease. Patient has history of lower extremity revascularization in the past [address] Hayward in [place]. Patient wholeheartedly wants to continue to pursue limb salvage efforts this will require infectious disease consultation, our facility does not have infectious disease coverage for the next 2 weeks, will also require consultation with vascular surgery for limb salvage efforts. Requires infectious disease and vascular surgery consultations as well as placement of PICC line to the jugular that cannot be performed at our facility. Seeking transfer to [facility] Attestations Medical Necessity Statement*: Acute osteomyelitis right foot Coding Level of Care Code Acute Pigment And Lacquer Mixer for [facility] Fwd Diagnoses Peripheral vascular disease I73.9 DM type 2 (diabetes mellitus, type 2) E11.42 Diabetes mellitus complication detail: with polyneuropathy Diabetes mellitus complication status: with neurologic complications Diabetes mellitus flight data technician insulin use: without assisted use End stage renal disease N18.6 Non-pressure chronic ulcer of other part of right foot with necrosis of bone L97.514 Peripheral arterial disease I73.9
[2021-07-11] MEDS: oxyCODONE 5 mg IR Tab/Cap PO (21:29)
[2021-07-11] MEDS: atorvastatin 40 mg Tablet 20 MG PO (21:30)
[2021-07-12] VITALS: BP 131/62; PULSE 85; RESP 17; TEMP 37.2; O2SAT 96
[2021-07-12 04:00] VITALS: BP 144/72; PULSE 81; RESP 16; TEMP 36.9; O2SAT 96
[2021-07-12 05:20] LABS: Basophils % 0.2 %; Eosinophils # 0.7 10^3/uL (0.0-0.8); Eosinophils % 5.6 %; Hematocrit 28.3 % (42.0-52.0); Hemoglobin 8.9 g/dL (11.7-16.6); Lymphocytes # 1.2 10^3/uL (0.8-4.8); Lymphocytes % 9.6 %; Mean Corpuscular HGB Conc 31.4 g/dL (30.0-36.0); Mean Corpuscular Hemoglobin 30.4 pg (28.0-34.0); Mean Corpuscular Volume 96.6 fl (80-94); Mean Platelet Volume 9.5 fL (7.4-10.4); Monocytes # 1.2 10^3/uL (0.2-0.9); Monocytes % 9.5 %; Neutrophils # 9.13 10^3/uL (1.8-7.7); Neutrophils % 73.3 %; Nucleated Red Blood Cells % 0 %; Platelet Count 224 10^3/cmm (130-400); Red Blood Count 2.93 10^6/uL (4.1-5.3); Red Cell Distribution Width 15.5 % (12.1-15.1); White Blood Count 12.5 10^3/uL (4.0-10.0)
[2021-07-12 05:37] LABS: Alanine Aminotransferase 16 U/L (0-41); Albumin Level 2.4 g/dL (3.5-5.2); Alkaline Phosphatase 167 IU/L (40-130); Aspartate Amino Transferase 17 U/L (0-40); Blood Urea Nitrogen 58 mg/dL (8-23); Calcium 9.5 mg/dL (8.5-10.5); Carbon Dioxide 23 mmol/L (22-29); Chloride 95 mmol/L (98-107); Glomerular Filtration Rate 8.8 mL/min (90-130); Glucose 154 mg/dL (65-115); Magnesium 2.1 mg/dL (1.7-2.3); Osmolality Calculated 297 mOsm/kg (285-295); Phosphorus 6.1 mg/dL (2.5-4.5); Sodium 134 mmol/L (136-145); Total Bilirubin 0.3 mg/dL (0.15-1.2); Total Protein 6.4 g/dL (6.6-8.7)
[2021-07-12] MEDS: Dianeal low Ca w/2.5% dex 2,000 mL Bag 2000 ML INTRAPERIT ×4 (06:00→17:43)
[2021-07-12 06:37] LABS: Glucose Point of Care 176 mg/dL (70-110)
--- NOTE | 2021-07-12 07:49 | P.PN_ITS ---
Subjective Subjective: Interval history: no n/v/f/c/bhakta/d. still w/ edema. rt foot wound vac Medications: Reviewed: Yes Medication Review Details: Current Medications Acetaminophen (Acetaminophen 325 Mg Tablet) 650 mg PO Q6H PRN PRN Reason: Mild/Mod Pain Or Temp >/= 101 Last Admin: 07/09/21 23:16 Dose: 650 mg Documented by: Allopurinol (Allopurinol 100 Mg Tablet) 100 mg PO DAILY [facility] Last Admin: 07/11/21 08:34 Dose: 100 mg Documented by: Aspirin (Aspirin 81 Mg Ec Tablet) 81 mg PO DAILY [facility] Last Admin: 07/09/21 08:04 Dose: 81 mg Documented by: Atorvastatin Calcium (Atorvastatin 40 Mg Tablet) 20 mg PO BEDTIME [facility] Last Admin: 07/11/21 21:30 Dose: 20 mg Documented by: Bisacodyl (Bisacodyl 5 Mg Tablet) 10 mg PO DAILY PRN; Protocol PRN Reason: Constipation (see protocol) Citalopram Hydrobromide (Citalopram 20 Mg Tablet) 20 mg PO DAILY [facility] Last Admin: 07/11/21 08:34 Dose: 20 mg Documented by: Clonidine HCl (Clonidine 0.1 Mg Tablet) 0.1 mg PO Q4H PRN PRN Reason: SBP >/=175 Cyclobenzaprine HCl (Cyclobenzaprine 10 Mg Tablet) 5 mg PO TID PRN PRN Reason: MUSCLE SPASMS Last Admin: 07/09/21 23:17 Dose: 5 mg Documented by: Dextrose (Dextrose 50% Syringe 50 Ml) 25 ml IVP ONCE PRN; Protocol PRN Reason: hypoglycemia protocol Dextrose (Dextrose 50% Syringe 50 Ml) 50 ml IVP PRN PRN; Protocol PRN Reason: hypoglycemia protocol Epoetin Jonathon (Epoetin Jonathon 1000 Unit/0.05 Ml (Esrd)) 20,000 unit SUBCUT MoWeFr [facility] Last Admin: 07/11/21 10:56 Dose: 20,000 unit Documented by: Gentamicin Sulfate (Gentamicin 0.1% Cream 15 Gm) 1 applic TOPICAL DAILY [facility] Last Admin: 07/11/21 08:35 Dose: 1 applic Documented by: Glucagon (Glucagon 1 Mg/Ml Inj 1 Ml) 1 mg IM ONCE PRN; Protocol PRN Reason: Adult Acute Hypoglycemia Prot. Heparin Sodium (Porcine) (Heparin 5,000 Unit/Ml Inj 1 Ml) 5,000 unit SUBCUT Q12H [facility] Last Admin: 07/11/21 21:31 Dose: 5,000 unit Documented by: Dextrose (D5w) 500 mls @ 100 mls/hr IV ONCE PRN; Protocol PRN Reason: Adult Acute Hypoglycemia Prot Imipenem/Cilastatin Sodium 250 (mg/ Sodium Chloride) 100 mls @ 200 mls/hr IV Q12H [facility] Last Infusion: 07/12/21 06:33 Dose: Infused Documented by: Insulin Human Lispro (Insulin Lispro 100 Unit/1 Ml) 0 unit SUBCUT WM&BEDTIME [facility]; Protocol Last Admin: 07/11/21 21:31 Dose: 12 unit Documented by: Lactobacillus Acidophilus (Lactobacillus 1 Tablet) 1 tab PO BID [facility] Last Admin: 07/11/21 17:58 Dose: 1 tab Documented by: Levothyroxine Sodium (Levothyroxine 175 Mcg Tablet) 175 mcg PO DAILY [facility] Last Admin: 07/11/21 08:34 Dose: 175 mcg Documented by: Linezolid (Linezolid 600 Mg Tablet) 600 mg PO Q12H [facility] Last Admin: 07/11/21 21:32 Dose: 600 mg Documented by: Losartan Potassium (Losartan 50 Mg Tablet) 100 mg PO DAILY [facility] Last Admin: 07/11/21 08:34 Dose: 100 mg Documented by: Metoprolol Tartrate (Metoprolol Tartrate 50 Mg Tablet) 50 mg PO BID@0900,2100 [facility] Last Admin: 07/11/21 21:30 Dose: 50 mg Documented by: Ondansetron HCl (Ondansetron 2 Mg/Ml Sdv 2 Ml) 4 mg IVP Q8H PRN PRN Reason: vomiting, or N/V if npo Ondansetron HCl (Ondansetron 4 Mg Tablet) 4 mg PO Q8H PRN PRN Reason: NAUSEA Oxycodone HCl (Oxycodone 5 Mg Ir Tab/Cap) 5 mg PO Q4H PRN PRN Reason: MODERATE TO SEVERE PAIN Last Admin: 07/11/21 21:29 Dose: 5 mg Documented by: Peritoneal Dialysis Solution (Dianeal Low Ca W/2.5% Dex 2,000 Ml Bag) 2,000 ml INTRAPERIT 5XD [facility] Last Admin: 07/12/21 06:00 Dose: 2,000 ml Documented by: Senna/Docusate Sodium (Sennosides-Docusate Tablet) 1 tab PO DAILY [facility] Last Admin: 07/11/21 08:34 Dose: 1 tab Documented by: Sevelamer Carbonate (Sevelamer 800 Mg Tablet) 1,600 mg PO TID [facility] Last Admin: 07/11/21 21:31 Dose: 1,600 mg Documented by: Vitals/I&O/Wt Last Vital Signs Temp 98.4 F 07/12/21 04:00 Pulse 81 07/12/21 04:00 Resp 16 07/12/21 04:00 BP 144/72 07/12/21 04:00 Pulse Ox 96 07/12/21 04:00 07/11/21 07/12/21 07/12/21 22:59 06:59 14:59 Intake Total 100 / 680 2160 / 2840 Output Total 3750 / 4500 Balance 100 / -70 -1590 / -1660 Physical Exam Narrative: EXAM NARRATIVE: comfortable in bed, NARD vs noted and stable Heent- nc/at, eomi, anicteric neck- no jvp lung clear b/l heart- irreg irreg, +RUBENS abd soft, nt, nd, +BS. rt sided PD catheter c/d/i exit site ext - rt foot wound vac, b/l leg edema neuro- a,a, o x 3 skin- no rash mood good Data : 07/12/21 04:40 07/12/21 04:40 Micro: Microbiology 07/06/21 20:22 Blood Culture - Final Blood NO GROWTH AFTER 5 DAYS 07/06/21 20:15 Blood Culture - Final Blood NO GROWTH AFTER 5 DAYS A&P Additional A&P Information 66 yr old man 1. OM- s/p RT TMA- still with discharge and wound dehiscence- iv abx and s/p debridement 07-08-21 -h/o MSSA and strep OM -abx per medicine/ ID/ surgery -wbc is 12 -dose abx for ESRD on PD 2. ESRD-CCPD at home- Home prescription is [facility], 8 hours on the cycler, three exchanges of 8 L, 2.5% and 1 day exchange of icodextrin. In hospital we will do CAPD. -cont CAPD 5 exchanges a day w/ 2.5% gluc -has a LUE AVF- was on HD in the past -phos binder 3. a fib per medicine 4. anemia- ferritin 2678- avoid iv iron w/ active infection -EPO -s/p 1 u prbc 07-10-21 5. DM control 6. hyponatremia - stable w/ dialysis 7. hypothyroidism on levothyroxine- normal tsh 8. gout - uric acid level controlled at 5.5. - allopurinol to 100 mgm po daily as ESRD Patient seen and examined via telemedicine, with the assistance of the bedside RN 30 min spent in evaluation and mgmt of patient discussed w/ nurse in detail -informed consent obtained for telehealth visit Attestations Medical Necessity Statement*: per medicine Time Spent in Patient Care: 16 - 35 minutes (>than 50% of time spent in counselling and/or direct pt care on unit) . Coding Level of Care Code Acute Deli Slicer for Breanna Aguero
[2021-07-12 08:00] VITALS: BP 172/89; PULSE 91; RESP 16; TEMP 36.7; O2SAT 95
[2021-07-12] MEDS: lactobacillus 1 Tablet 1 TAB PO ×2 (08:16→17:42)
[2021-07-12] MEDS: levothyroxine 175 mcg Tablet PO (08:16)
[2021-07-12] MEDS: sevelamer 800 mg Tablet 2400 MG PO ×3 (08:16→21:36)
[2021-07-12] MEDS: metoprolol tartrate 50 mg Tablet PO ×2 (08:16→21:36)
[2021-07-12] MEDS: sennosides-docusate Tablet 1 TAB PO (08:16)
[2021-07-12] MEDS: linezolid 600 mg Tablet PO ×2 (08:16→21:36)
[2021-07-12] MEDS: allopurinol 100 mg Tablet PO (08:16)
[2021-07-12] MEDS: heparin 5,000 unit/mL INJ 1 mL 5000 UNIT SUBCUT ×2 (08:16→21:37)
[2021-07-12] MEDS: citalopram 20 mg Tablet PO (08:17)
[2021-07-12] MEDS: insulin lispro 100 unit/1 mL SUBCUT ×4 (08:17→21:38)
[2021-07-12] MEDS: losartan 50 mg Tablet 100 MG PO (08:17)
[2021-07-12 11:05] LABS: Glucose Point of Care 210 mg/dL (70-110)
[2021-07-12 11:27] VITALS: BP 157/80; PULSE 104; RESP 16; TEMP 36.8; O2SAT 96
--- NOTE | 2021-07-12 14:51 | P.PN_ITS ---
Subjective Subjective: Interval history: Patient was seen and examined, no overnight events, hemoglobin stable Try to get in touch with [facility], did still do not have any beds available, I have left a voicemail and waiting for hospitalist response from [facility] patient is stating that he would like to try in [place] first before looking into other options because his is not able to drive that far Vitals/I&O/Wt Last Vital Signs Temp 98.2 F 07/12/21 11:27 Pulse 104 H 07/12/21 11:27 Resp 16 07/12/21 11:27 BP 157/80 07/12/21 11:27 Pulse Ox 96 07/12/21 11:27 07/11/21 07/12/21 07/12/21 22:59 06:59 14:59 Intake Total 100 / 680 2160 / 2840 360 / 360 Output Total 3750 / 4500 480 / 480 Balance 100 / -70 -1590 / -1660 -120 / -120 Physical Exam Narrative: EXAM NARRATIVE: Patient was laying comfortably in his bed Wound VAC draining minimal amount of drainage, 50 to 70 mL dried blood noted in the wound VAC S1, S2 Left arm fistula Peritoneal dialysis catheter in place no active drainage around the catheter Abdomen soft S1, S2 No neurological focal exam findings No audible stridor or wheezing Data : 07/12/21 04:40 07/12/21 04:40 Micro: Microbiology 07/06/21 20:22 Blood Culture - Final Blood NO GROWTH AFTER 5 DAYS 07/06/21 20:15 Blood Culture - Final Blood NO GROWTH AFTER 5 DAYS A&P Additional A&P Information Tried calling second time today: [facility] does not have any beds available at [facility] I have left a voicemail to the hospitalist service at [facility]: awaiting response Acute blood loss anemia: Status post 2 unit PRBC: Hemoglobin stable Patient is afebrile, polymicrobial wound culture positive currently on broad-spectrum antibiotics, need PICC line placement by IR, we do not have ID services for next 2 weeks that would necessitate his transfer for higher level of care Patient is in agreement Full code Consistent carb renal dialysis diet DVT prophylaxis contraindicated: SCDs: Heparin, hemoglobin stable Attestations Medical Necessity Statement*: Awaiting bed placement Time Spent in Patient Care: less than 15 minutes Coding Level of Care Code Acute Energy Projects Lead for Breanna Aguero
[2021-07-12 15:13] VITALS: BP 150/71; PULSE 82; RESP 16; TEMP 36.7; O2SAT 96
--- NOTE | 2021-07-12 15:15 | PM.PN ---
Subjective Subjective: Interval history: Patient seen bedside today his is present. Denies any acute events overnight. Denies any pain to the right foot. Awaiting transfer for placement of PICC line jugular, vascular surgery and infectious disease consultations. Vitals/I&O/Wt Last Vital Signs Temp 98.0 F 07/12/21 15:13 Pulse 82 07/12/21 15:13 Resp 16 07/12/21 15:13 BP 150/71 07/12/21 15:13 Pulse Ox 96 07/12/21 15:13 07/12/21 07/12/21 07/12/21 06:59 14:59 22:59 Intake Total 2160 / 2840 360 / 360 Output Total 3750 / 4500 480 / 480 Balance -1590 / -1660 -120 / -120 Physical Exam Narrative: EXAM NARRATIVE: Patient is alert and oriented ?3 and in no acute distress. The following is a focused right lower extremity exam. VASCULAR: Dorsalis pedis and posterior tibial arteries palpable +2. Capillary refill time less than 3 seconds to the distal hallux bilaterally. Calf is supple and nontender proximally and distally. Mild edema at the operative site consistent with postoperative course. NEUROLOGICAL: Protective sensation intact to light touch. DERMATOLOGICAL: Significantly improved amputation site right foot has bleeding skin margins without obvious necrosis, wound VAC changed today. Wound VAC dressing intact with excellent seal, no leaks, 100 mL of serosanguineous drainage in the canister. MUSCULOSKELETAL: Tenderness about the operative site consistent with postoperative course. No pain with posterior calf squeeze. Further musculoskeletal exam deferred due to postoperative state. Data : 07/12/21 04:40 07/12/21 04:40 Micro: Microbiology 07/06/21 20:22 Blood Culture - Final Blood NO GROWTH AFTER 5 DAYS 07/06/21 20:15 Blood Culture - Final Blood NO GROWTH AFTER 5 DAYS A&P Assessment and plan (1) Peripheral vascular disease: Status: Chronic (2) DM type 2 (diabetes mellitus, type 2): Status: Chronic Qualifiers: Diabetes mellitus complication detail: with polyneuropathy Diabetes mellitus complication status: with neurologic complications Diabetes mellitus laborer marine terminal insulin use: without laborer marine terminal use Qualified Code(s): E11.42 - Type 2 diabetes mellitus with diabetic polyneuropathy (3) End stage renal disease: Status: Chronic (4) Non-pressure chronic ulcer of other part of right foot with necrosis of bone: Status: Acute (5) Peripheral arterial disease: Status: Acute Incision and debridement right foot with wound VAC application performed 07/08/2021 patient doing well postoperatively with improved granulation tissue Patient on Zyvox and Inipenem guided by cultures on file Changed wound VAC 11- increased granulation tissue amputation site is stable with improved appearance, 100 mL of serosanguineous drainage in the canister over the past 48 hours. Will need wound VAC dressing change every 48-72 hours will need to have discontinued when transferred to [facility] Nonweightbearing to the right lower extremity. Patient will need transfer to [facility] for placement of PICC line through the jugular and vascular consult for PAD. Patient has right transmetatarsal amputation secondary to acute osteomyelitis performed 06/10/2021. Patient underwent primary delayed closure over the course of the next 3 weeks surgical site dehisced, underwent revisional debridement and application of wound VAC 07/08/2021. Suboptimal response clinically on oral antibiotics after initial amputation also concern for progression of peripheral arterial disease. Patient has history of lower extremity revascularization in the past [address] Hayward in [place]. Patient wholeheartedly wants to continue to pursue limb salvage efforts this will require infectious disease consultation, our facility does not have infectious disease coverage for the next 2 weeks, will also require consultation with vascular surgery for limb salvage efforts. Requires infectious disease and vascular surgery consultations as well as placement of PICC line to the jugular that cannot be performed at our facility. Attestations Medical Necessity Statement*: Diabetic foot infection Coding Level of Care Code Acute Breaker Table [facility] Diagnoses Peripheral vascular disease I73.9 DM type 2 (diabetes mellitus, type 2) E11.42 Diabetes mellitus complication detail: with polyneuropathy Diabetes mellitus complication status: with neurologic complications Diabetes mellitus half-way insulin use: without laborer marine terminal use End stage renal disease N18.6 Non-pressure chronic ulcer of other part of right foot with necrosis of bone L97.514 Peripheral arterial disease I73.9
[2021-07-12 17:07] LABS: Glucose Point of Care 250 mg/dL (70-110)
--- NOTE | 2021-07-12 19:37 | PM.TDS ---
Transfer Summary Providers Date of Admission: 07/06/21 18:05 Date of Discharge: 07/12/21 Attending Provider at Admission: Kory Sosa MD Attending Provider at Transfer: Salvador Nguyen MD Primary Care Provider: Frankie Woodall DPM Anticipated Date of Transfer: Anticipated date of transfer: 07/12/21 Receiving Facility & Provider: Receiving Provider: [] Receiving facility: [] Diagnoses at Discharge Discharge Diagnosis (1) Peripheral vascular disease: Status: Chronic Permanent problem details: severe (2) DM type 2 (diabetes mellitus, type 2): Status: Chronic Qualifiers: Diabetes mellitus complication detail: with polyneuropathy Diabetes mellitus complication status: with neurologic complications Diabetes mellitus half-way insulin use: without half-way use Qualified Code(s): E11.42 - Type 2 diabetes mellitus with diabetic polyneuropathy (3) End stage renal disease: Status: Chronic (4) Non-pressure chronic ulcer of other part of right foot with necrosis of bone: Status: Acute (5) Peripheral arterial disease: Status: Acute Reason for Visit Reason for Visit: FOOT WOUND Hospital Course Hospital Course History of Present Illness by Dr Posey: Levi Bonilla is a 66 year old male who presented to [facility] podiatry clinic for follow-up. He has a history of osteomyelitis and gangrene of the right foot and underwent transmetatarsal amputation on June 10 with delayed closure and Achilles lengthening on June 14. He had polymicrobial cultures and has been on Augmentin and Cipro PO, outpatient. He has known severe peripheral vascular disease and has required intervention on the right lower extremity in November of this year by Dr Hayward. Unfortunately he has developed wound dehiscence at the site of surgery earlier this month. He denies any fever. He is always cold, not any worse lately. No nausea or vomiting. No diarrhea. He occasionally has shooting pains in the right foot but no escalation lately. He has been following nonweightbearing status and other instructions as per Dr. Woodall. Was sent for direct admission by Dr. Woodall for initiation of IV antibiotics and planned surgical intervention with wound VAC placement on 07/08. Currently without acute complaints. Right foot is dressed from clinic. HOSP COURSE Patient is s/p transmetatarsal amputation on 06/10 for acute gangrene and osteomyelitis of the middle phalanx of the second toe in a background of Charcot arthropathy and severe peripheral vascular disease. Path margins from 06/10 clear of osteomyelitis. Patient discharged with PO Cipro and Augmentin based on polymicrobial outpatient wound cultures, no OR cx data available(sample not sent). Post op course compliacted by wound dehiscence and necrosis, devitalized tissue extending down to bone. Patient's recovery complicated by several factors including poor vascular supply, Charcot's arthropathy, comorbidities including DM and CKD. Patient continues to wish for foot salvage treatment options, He is at high risk of higher level of amputations given above risk factors. Patient is extremely skeptical about getting a Picc line placement in the right forearm(left has AV fistula and cannot be used) as he had several complications with last forearm PICC placement including septic thrombophlebitis/DVT with Pseuodmonas aeruginosa for which he was treated with Fluoroquinolones for 6 weeks in keeping with cx data. Thereafter reports that he also had septic arthritis of right shoulder diagnosed at [facility] and needed repeat course of iv abx. Documents requested. States he had a PICC placed in the neck (IJ vs subclavian line?) by IR at that time and was advised to avoid forearm PICCs due to scarring in the axilla. Unfortunately we do not have IR capability for placement of above iv access line at [facility]. Therefore ID physician did reach out and spoke to to his ID physician Dr. Camacho at [facility] with patient's permission to coordinate an office visit with him and discuss iv abx use. Unfortunately Dr. Camacho is unable to see patient until August 2021. He was admitted (07/06) for debridement and wound vac placement with podiatry, started iv abx(linezolid and Primaxin) while inpatient, after placement of wound VAC he did require 2 units of PRBC hemoglobin has remained stable afterwards between 8.5-8.6. He remained hemodynamically stable, he did receive peritoneal dialysis on daily basis, at the time of discharge she is clinically and hemodynamically stable. Debridement and wound VAC placement on 07/[address] Woodall/acute care surgeon. needs transfer to higher facility for multidiscplinary approach including IR for specialized line placement for terminal gauger abx use. Blood cultures sterile, wound culture has been showing polymicrobial infection with Enterobacter, Enterococcus PCM VRE, Enterobacter cloacae, Enterococcus faecalis, MRSA, other co morbid conditions:- history of gout on allopurinol Hypothyroidism on levothyroxine History of depression on citalopram Chronic pain on as needed Flexeril and oxycodone Chronic PPI us Result RARE WHITE BLOOD CELLS HEAVY GRAM NEGATIVE RODS FEW GRAM POSITIVE COCCI IN PAIRS & CHAINS Wound Culture Final 07/09/21-1733 Organism 1 Enterobacter hormaechei Growth HEAVY Organism 2 Enterococcus faecium vre Growth HEAVY DAY 3 E hormaech Enterococc M.I.C. RX M.I.C. RX --------- ------ --------- ------ * Amikacin <=16 S * Amoxicillin/Clavulanate >16/8 R * Ampicillin >16 R >8 R * Ampicillin/Sulbactam >16/8 R * Aztreonam >16 R * Cefepime >16 R * Ceftriaxone >32 R * Cefuroxime >16 R * Ciprofloxacin >2 R >2 R * Erythromycin >4 R * Gentamicin <=2 S * Imipenem <=1 S * Levofloxacin 4 I >4 R * Linezolid 2 S * Penicillin >8 R * Rifampin >2 R * Tetracycline >8 R >8 R * Trimethoprim/Sulfamethoxazole >2/38 R Vancomycin >16 R * Piperacillin/Tazobactam >64 R Gentamicin Synergy Screen <=500 S Daptomycin 4 S 05/05/21 E cloacae E faecalis S aureus M.I.C. RX M.I.C. RX M.I.C. RX --------- ------ --------- ------ --------- ------ * Amikacin <=16 S * Amoxicillin/Clavulanate >16/8 R <=4/2 S * Ampicillin >16 R <=2 S >8 R * Ampicillin/Sulbactam >16/8 R <=8/4 S * Aztreonam <=4 S * Cefepime <=8 S * Ceftriaxone <=1 S <=8 S * Cefuroxime 16 R * Ciprofloxacin <=1 S <=1 S * Clindamycin <=0.5 S * Erythromycin <=0.5 S * Gentamicin <=2 S <=4 S * Imipenem <=1 S * Levofloxacin <=2 S <=1 S * Linezolid 2 S 4 S * Oxacillin 0.5 S * Penicillin 2 S >8 R * Rifampin <=1 S * Tetracycline <=4 S <=4 S * Trimethoprim/Sulfamethoxazole <=2/38 S <=0.5/9.5 S Vancomycin 2 S 2 S * Piperacillin/Tazobactam <=16 S Gentamicin Synergy Screen <=500 S Daptomycin 2 S <=0.5 S TS Data Data Completed and Pending: Completed Studies During Hospitalization Category Date Time Status XR foot RT min 3V * [id number] Routine Exams 07/08/21 12:57 Completed Pending at discharge Category Date Time Status Complete Blood Co unt w/Auto AM LABS Lab 07/13/21 04:00 Ordered Complete Blood Co unt w/Auto AM LABS Lab 07/13/21 04:00 Ordered Complete Blood Co unt w/Auto AM LABS Lab 07/14/21 04:00 Ordered Comprehensive Met abolic Panel AM LA BS Lab 07/13/21 04:00 Ordered Comprehensive Met abolic Panel AM LA BS Lab 07/14/21 04:00 Ordered Coronavirus Test [facility] Lab 07/07/21 06:45 Ordered Magnesium AM LABS Lab 07/13/21 04:00 Ordered Magnesium AM LABS Lab 07/14/21 04:00 Ordered Phosphorus AM LAB S Lab 07/13/21 04:00 Ordered Phosphorus AM LAB S Lab 07/14/21 04:00 Ordered Labs from last 24 hours 07/12/21 07/12/21 07/12/21 17:04 10:54 06:33 WBC RBC Hgb Hct MCV MCH MCHC RDW Plt Count MPV Neut % (Auto) Lymph % (Auto) [place] % (Auto) Eos % (Auto) Baso % (Auto) Neut # (Auto) Lymph # (Auto) [place] # (Auto) Eos # (Auto) Baso # (Auto) Nucleated RBC % (a uto) Nucleated RBCs # Sodium Potassium Chloride Carbon Dioxide Anion Gap BUN Creatinine GFR Calculation Glucose POC Glucose 250 H 210 H 176 H Calculated Osmolal ity Calcium Phosphorus Magnesium Total Bilirubin AST ALT Alkaline Phosphata se Total Protein Albumin Globulin Crossmatch 07/12/21 07/12/21 07/11/21 04:40 04:40 20:12 WBC 12.5 H RBC 2.93 L Hgb 8.9 L Hct 28.3 L MCV 96.6 H MCH 30.4 MCHC 31.4 RDW 15.5 H Plt Count 224 MPV 9.5 Neut % (Auto) 73.3 Lymph % (Auto) 9.6 [place] % (Auto) 9.5 Eos % (Auto) 5.6 Baso % (Auto) 0.2 Neut # (Auto) 9.13 H Lymph # (Auto) 1.2 [place] # (Auto) 1.2 H Eos # (Auto) 0.7 Baso # (Auto) 0.0 Nucleated RBC % (a uto) 0 Nucleated RBCs # 0.0 Sodium 134 L Potassium 4.0 Chloride 95 L Carbon Dioxide 23 Anion Gap 20.0 H BUN 58 H Creatinine 6.4 H* GFR Calculation 8.8 L Glucose 154 H POC Glucose 265 H Calculated Osmolal ity 297 H Calcium 9.5 Phosphorus 6.1 H Magnesium 2.1 Total Bilirubin 0.3 AST 17 ALT 16 Alkaline Phosphata se 167 H Total Protein 6.4 L Albumin 2.4 L Globulin 4.0 Crossmatch 07/09/21 10:50 WBC RBC Hgb Hct MCV MCH MCHC RDW Plt Count MPV Neut % (Auto) Lymph % (Auto) [place] % (Auto) Eos % (Auto) Baso % (Auto) Neut # (Auto) Lymph # (Auto) [place] # (Auto) Eos # (Auto) Baso # (Auto) Nucleated RBC % (a uto) Nucleated RBCs # Sodium Potassium Chloride Carbon Dioxide Anion Gap BUN Creatinine GFR Calculation Glucose POC Glucose Calculated Osmolal ity Calcium Phosphorus Magnesium Total Bilirubin AST ALT Alkaline Phosphata se Total Protein Albumin Globulin Crossmatch See Detail Vitals: Last Vital Signs Temp 98.0 F 07/12/21 15:13 Pulse 82 07/12/21 15:13 Resp 16 07/12/21 15:13 BP 150/71 07/12/21 15:13 Pulse Ox 96 07/12/21 15:13 TS Medications Medications Home Medications allopurinol 300 mg PO QAM 08/11/20 [History Confirmed 07/07/21] citalopram 20 mg PO BEDTIME 08/11/20 [History Confirmed 07/07/21] clonidine HCl 0.1 mg PO BID 08/11/20 [History Confirmed 07/07/21] cyclobenzaprine 5 mg PO Q8H PRN 08/11/20 [History Confirmed 07/07/21] ergocalciferol (vitamin D2) 1,250 mcg PO Q7D 08/11/20 [History Confirmed 07/07/21] losartan 100 mg PO BEDTIME 08/11/20 [History Confirmed 07/07/21] pantoprazole 40 mg PO QAM 08/11/20 [History Confirmed 07/07/21] paricalcitol [Zemplar] 1 mcg PO .FIVE TIMES A WEEK 08/11/20 [History Confirmed 07/07/21] torsemide 100 mg PO QAM 08/11/20 [History Confirmed 07/07/21] polysaccharide iron complex [Ferrex 150] 150 mg PO BID 09/27/20 [History Confirmed 07/07/21] amlodipine 10 mg tablet 10 mg PO BEDTIME tab 10/14/20 [History Confirmed 07/07/21] Auryxia 630 mg PO TIDWM 11/25/20 [History Confirmed 07/07/21] glipizide 5 mg PO QAM 11/26/20 [History Confirmed 07/07/21] metoprolol tartrate 100 mg PO Q12H 11/26/20 [History Confirmed 07/07/21] Renal Factor Plus 1 tab PO DAILY 06/09/21 [History Confirmed 07/07/21] aspirin 81 mg PO BEDTIME 06/09/21 [History Confirmed 07/07/21] levothyroxine 175 mcg PO QAM 06/09/21 [History Confirmed 07/07/21] omega 4-eoa-cuu-fish oil [Fish Oil] 1 cap PO BID #0 06/09/21 [History Confirmed 07/07/21] amoxicillin-pot clavulanate [Augmentin] 1 tab PO BID 28 Days #56 tab 06/15/21 [Rx Confirmed 07/07/21] ciprofloxacin HCl 250 mg PO BID 28 Days #56 tab 06/15/21 [Rx Confirmed 07/07/21] oxycodone 5 mg PO Q8H PRN #10 cap 06/15/21 [Rx Confirmed 07/07/21] sennosides-docusate sodium [Senna Plus] 1 tab-cap PO DAILY #10 cap 06/15/21 [Rx Confirmed 07/07/21] atorvastatin 20 mg PO DAILY 07/07/21 [History Confirmed 07/07/21] Active Medications Acetaminophen (Acetaminophen 325 Mg Tablet) 650 mg PO Q6H PRN PRN Reason: Mild/Mod Pain Or Temp >/= 101 Last Admin: 07/09/21 23:16 Dose: 650 mg Documented by: Allopurinol (Allopurinol 100 Mg Tablet) 100 mg PO DAILY [facility] Last Admin: 07/12/21 08:16 Dose: 100 mg Documented by: Aspirin (Aspirin 81 Mg Ec Tablet) 81 mg PO DAILY [facility] Last Admin: 07/09/21 08:04 Dose: 81 mg Documented by: Atorvastatin Calcium (Atorvastatin 40 Mg Tablet) 20 mg PO BEDTIME [facility] Last Admin: 07/11/21 21:30 Dose: 20 mg Documented by: Bisacodyl (Bisacodyl 5 Mg Tablet) 10 mg PO DAILY PRN; Protocol PRN Reason: Constipation (see protocol) Citalopram Hydrobromide (Citalopram 20 Mg Tablet) 20 mg PO DAILY [facility] Last Admin: 07/12/21 08:17 Dose: 20 mg Documented by: Clonidine HCl (Clonidine 0.1 Mg Tablet) 0.1 mg PO Q4H PRN PRN Reason: SBP >/=175 Cyclobenzaprine HCl (Cyclobenzaprine 10 Mg Tablet) 5 mg PO TID PRN PRN Reason: MUSCLE SPASMS Last Admin: 07/09/21 23:17 Dose: 5 mg Documented by: Dextrose (Dextrose 50% Syringe 50 Ml) 25 ml IVP ONCE PRN; Protocol PRN Reason: hypoglycemia protocol Dextrose (Dextrose 50% Syringe 50 Ml) 50 ml IVP PRN PRN; Protocol PRN Reason: hypoglycemia protocol Epoetin Jonathon (Epoetin Jonathon 1000 Unit/0.05 Ml (Esrd)) 10,000 unit SUBCUT MoWeFr [facility] Gentamicin Sulfate (Gentamicin 0.1% Cream 15 Gm) 1 applic TOPICAL DAILY [facility] Last Admin: 07/12/21 08:18 Dose: 1 applic Documented by: Glucagon (Glucagon 1 Mg/Ml Inj 1 Ml) 1 mg IM ONCE PRN; Protocol PRN Reason: Adult Acute Hypoglycemia Prot. Heparin Sodium (Porcine) (Heparin 5,000 Unit/Ml Inj 1 Ml) 5,000 unit SUBCUT Q12H [facility] Last Admin: 07/12/21 08:16 Dose: 5,000 unit Documented by: Dextrose (D5w) 500 mls @ 100 mls/hr IV ONCE PRN; Protocol PRN Reason: Adult Acute Hypoglycemia Prot Imipenem/Cilastatin Sodium 250 (mg/ Sodium Chloride) 100 mls @ 200 mls/hr IV Q12H [facility] Last Infusion: 07/12/21 18:13 Dose: Infused Documented by: Insulin Human Lispro (Insulin Lispro 100 Unit/1 Ml) 0 unit SUBCUT WM&BEDTIME [facility]; Protocol Last Admin: 07/12/21 17:43 Dose: 10 unit Documented by: Lactobacillus Acidophilus (Lactobacillus 1 Tablet) 1 tab PO BID [facility] Last Admin: 07/12/21 17:42 Dose: 1 tab Documented by: Levothyroxine Sodium (Levothyroxine 175 Mcg Tablet) 175 mcg PO DAILY [facility] Last Admin: 07/12/21 08:16 Dose: 175 mcg Documented by: Linezolid (Linezolid 600 Mg Tablet) 600 mg PO Q12H [facility] Last Admin: 07/12/21 08:16 Dose: 600 mg Documented by: Losartan Potassium (Losartan 50 Mg Tablet) 100 mg PO DAILY [facility] Last Admin: 07/12/21 08:17 Dose: 100 mg Documented by: Metoprolol Tartrate (Metoprolol Tartrate 50 Mg Tablet) 50 mg PO BID@0900,2100 [facility] Last Admin: 07/12/21 08:16 Dose: 50 mg Documented by: Ondansetron HCl (Ondansetron 2 Mg/Ml Sdv 2 Ml) 4 mg IVP Q8H PRN PRN Reason: vomiting, or N/V if npo Ondansetron HCl (Ondansetron 4 Mg Tablet) 4 mg PO Q8H PRN PRN Reason: NAUSEA Peritoneal Dialysis Solution (Dianeal Low Ca W/2.5% Dex 2,000 Ml Bag) 2,000 ml INTRAPERIT 5XD [facility] Last Admin: 07/12/21 17:43 Dose: 2,000 ml Documented by: Senna/Docusate Sodium (Sennosides-Docusate Tablet) 1 tab PO DAILY [facility] Last Admin: 07/12/21 08:16 Dose: 1 tab Documented by: Sevelamer Carbonate (Sevelamer 800 Mg Tablet) 2,400 mg PO TID [facility] Last Admin: 07/12/21 17:42 Dose: 2,400 mg Documented by: Discharge Plan Discharge Patient Disposition: Xfer Other Condition: Stable Prescriptions: Continued amlodipine 10 mg tablet 10 mg PO BEDTIME RF: 0 cyclobenzaprine 10 mg tablet 5 mg PO Q8H PRN (Reason: muscle spasms) RF: 0 torsemide 100 mg tablet 100 mg PO QAM RF: 0 ergocalciferol (vitamin D2) 1,250 mcg (50,000 unit) capsule 1,250 mcg PO Q7D RF: 0 losartan 100 mg tablet 100 mg PO BEDTIME RF: 0 citalopram 20 mg tablet 20 mg PO BEDTIME RF: 0 pantoprazole 40 mg tablet,delayed release (DR/EC) 40 mg PO QAM RF: 0 allopurinol 300 mg tablet 300 mg PO QAM RF: 0 clonidine HCl 0.1 mg tablet 0.1 mg PO BID RF: 0 paricalcitol [Zemplar] 1 mcg Capsule 1 mcg PO .FIVE TIMES A WEEK RF: 0 polysaccharide iron complex [Ferrex 150] 150 mg iron capsule 150 mg PO BID RF: 0 levothyroxine 175 mcg tablet 175 mcg PO QAM RF: 0 aspirin 81 mg Tablet,Delayed Release (Dr/Ec) 81 mg PO BEDTIME RF: 0 omega 8-azw-kgr-fish oil [Fish Oil] 1,200 (144-216) mg Capsule 1 cap PO BID Qty: 0 RF: 0 Renal Factor Plus 1 tab PO DAILY RF: 0 amoxicillin-pot clavulanate [Augmentin] 875-125 mg tablet 1 tab PO BID 28 Days Qty: 56 RF: 0 oxycodone 5 mg capsule 5 mg PO Q8H PRN (Reason: pain) Qty: 10 RF: 0 Senna Plus 8.6-50 mg capsule 1 tab-cap PO DAILY Qty: 10 RF: 0 ciprofloxacin HCl 250 mg tablet 250 mg PO BID 28 Days Qty: 56 RF: 0 Auryxia 210 mg iron Tablet 630 mg PO TIDWM RF: 0 metoprolol tartrate 100 mg Tablet 100 mg PO Q12H RF: 0 glipizide 5 mg tablet 5 mg PO QAM RF: 0 atorvastatin 20 mg Tablet 20 mg PO DAILY RF: 0 Discharge Orders: Discharge Order (Routine); Ordered 07/12/21 Ordered By: Salvador Nguyen Referrals: [facility] [Outside] Discharge Diet: Cardiac Discharge Activity: Wheelchair as instructed Transfer Attestations Time Spent in Transfer Care*: less than 30 min Status at Transfer: Cognitive status at transfer: cognitively intact, Behavioral status at transfer: cooperative, Quality Metrics Clinical Quality Measures: During this hospital stay, did patient experience: None Coding Level of Care Code Acute Front Edger for [facility] Diagnoses Peripheral vascular disease I73.9 DM type 2 (diabetes mellitus, type 2) E11.42 Diabetes mellitus complication detail: with polyneuropathy Diabetes mellitus complication status: with neurologic complications Diabetes mellitus terminal gauger insulin use: without terminal gauger use End stage renal disease N18.6 Non-pressure chronic ulcer of other part of right foot with necrosis of bone L97.514 Peripheral arterial disease I73.9
[2021-07-12 20:00] VITALS: BP 163/85; PULSE 99; RESP 16; TEMP 37.1; O2SAT 97
[2021-07-12 20:39] LABS: Glucose Point of Care 240 mg/dL (70-110)
[2021-07-12] MEDS: atorvastatin 40 mg Tablet 20 MG PO (21:36)
--- NOTE | 2021-07-13 02:43 | PC.NURSE ---
Patient was transported out via gurney by EMS transferring to [facility] at approximately 2145. Patient is alert and oriented x4. Denies any pain at this time and is not in acute distress. Has a 20g IV in the right wrist. IV is patent and functioning properly. Patient has wound vac on the right foot. Dressing changed by MD today. Last PD exchanged was completed at 1800. Dwell time is 5 hours. Patient received his insulin injection of humalog, 10 units in the upper right arm and heparin injection in the lower left abdomen. Patient tolerated these injections well. Patient was administered all of his night medications at this time. All of patient's belongings was taken with him including his cpap machine. Report was called by cone winder nurse, report given to Alix Fleming RN at [facility].
== END 2021-07-12 21:45 | disposition short-term general hospital (02) | DRG 474 ==
PROVIDERS: Hospitalist; Internal Medicine; Internal Medicine Nephrology; Admitting Provider Student in an Organized Health Care Education/Training Program; PCP Podiatrist Foot & Ankle Surgery; Visit Provider Internal Medicine
PROC: 0Y6M0Z9 Detachment at Right Foot, Partial 1st Ray, Open Approach (ICD-10-PCS; principal; 2021-07-08 08:40)
DX: T87.81 Dehiscence of amputation stump (principal); N18.6 End stage renal disease; E11.52 Type 2 diabetes mellitus with diabetic peripheral angiopathy with gangrene; I12.0 Hypertensive chronic kidney disease with stage 5 chronic kidney disease or end stage renal disease; I96 Gangrene, not elsewhere classified; M86.171 Other acute osteomyelitis, right ankle and foot; I48.20 Chronic atrial fibrillation, unspecified; Z68.41 Body mass index [BMI] 40.0-44.9, adult; S92.351K Displaced fracture of fifth metatarsal bone, right foot, subsequent encounter for fracture with nonunion; D62 Acute posthemorrhagic anemia; E11.22 Type 2 diabetes mellitus with diabetic chronic kidney disease; E11.69 Type 2 diabetes mellitus with other specified complication; E11.610 Type 2 diabetes mellitus with diabetic neuropathic arthropathy; E11.42 Type 2 diabetes mellitus with diabetic polyneuropathy; Z99.2 Dependence on renal dialysis; D63.1 Anemia in chronic kidney disease; M10.9 Gout, unspecified; E03.9 Hypothyroidism, unspecified; E66.01 Morbid (severe) obesity due to excess calories; Z89.431 Acquired absence of right foot; E11.621 Type 2 diabetes mellitus with foot ulcer; L97.514 Non-pressure chronic ulcer of other part of right foot with necrosis of bone; F32.A Depression, unspecified; G89.29 Other chronic pain; Z79.84 Long term (current) use of oral hypoglycemic drugs; Z79.891 Long term (current) use of opiate analgesic; Z79.82 Long term (current) use of aspirin; X58.XXXD Exposure to other specified factors, subsequent encounter; B96.89 Other specified bacterial agents as the cause of diseases classified elsewhere; Z86.718 Personal history of other venous thrombosis and embolism
CPT/HCPCS: 36415; 36416; 36430; 73630; 80048; 80053; 82306; 82728; 82962; 83540; 83550; 83605; 83735; 84100; 84443; 84550; 85025; 85610; 85730; 86140; 86850; 86900; 86920; 87040; 87070; 87075; 87077; 87184; 87205; 89050; 96372; J0743; J1644; J1815; J1956; J2020; J2543; J2704; J7030; P9016; P9051; Q3014; Q4081

== ENCOUNTER 2021-08-01 09:16 | Outpatient (CLI) | payer MEDICARE, OTHER, SELFPAY ==
[2021-08-01 09:47] LABS: Hematocrit 20.9 % (42.0-52.0); Mean Corpuscular HGB Conc 31.1 g/dL (30.0-36.0); Mean Corpuscular Hemoglobin 30.2 pg (28.0-34.0); Mean Corpuscular Volume 97.2 fl (80-94); Platelet Count 148 10^3/cmm (130-400); Red Blood Count 2.15 10^6/uL (4.1-5.3); Red Cell Distribution Width 15.8 % (12.1-15.1); White Blood Count 8.6 10^3/uL (4.0-10.0)
[2021-08-01 10:11] LABS: Alanine Aminotransferase 9 U/L (0-41); Albumin Level 2.6 g/dL (3.5-5.2); Alkaline Phosphatase 150 IU/L (40-130); Anion Gap 20.7 (5-19); Aspartate Amino Transferase 13 U/L (0-40); Blood Urea Nitrogen 69 mg/dL (8-23); Calcium 8.4 mg/dL (8.5-10.5); Carbon Dioxide 21 mmol/L (22-29); Chloride 95 mmol/L (98-107); Globulin 3.6 g/dL (1.3-4.6); Glomerular Filtration Rate 6.9 mL/min (90-130); Glucose 149 mg/dL (65-115); Osmolality Calculated 299 mOsm/kg (285-295); Potassium 3.7 mmol/L (3.5-5.1); Sodium 133 mmol/L (136-145); Total Bilirubin 0.3 mg/dL (0.15-1.2); Total Protein 6.2 g/dL (6.6-8.7)
[2021-08-01 11:28] LABS: Eosinophils 1 %; Lymphocytes 19 %; Segmented Neutrophils 79 %; Total Cells Counted 100 (0-100)
[2021-08-01 11:29] LABS: Anisocytosis 1+; Microcytosis Trace
[2021-08-01 12:02] LABS: Hemoglobin 6.5 g/dL (11.7-16.6)
[2021-08-01 12:13] LABS: Absolute Neutrophil 6.8 10^3/cmm (1.4-6.5); Platelet Estimate Normal (Normal)
== END 2021-08-01 09:17 | disposition home or self-care (01) ==
PROVIDERS: Internal Medicine Infectious Disease; PCP Podiatrist Foot & Ankle Surgery; Visit Provider Podiatrist Foot & Ankle Surgery
DX: L98.499 Non-pressure chronic ulcer of skin of other sites with unspecified severity (principal)
CPT/HCPCS: 80053; 85007; 85027

== ENCOUNTER 2021-08-08 16:06 | Outpatient (CLI) | payer MEDICARE, OTHER, SELFPAY ==
[2021-08-08 16:50] LABS: Hematocrit 40.7 % (42.0-52.0); Hemoglobin 13.2 g/dL (11.7-16.6); Mean Corpuscular HGB Conc 32.4 g/dL (30.0-36.0); Mean Corpuscular Hemoglobin 30.6 pg (28.0-34.0); Mean Corpuscular Volume 94.4 fl (80-94); Mean Platelet Volume 10.5 fL (7.4-10.4); Platelet Count 116 10^3/cmm (130-400); Red Blood Count 4.31 10^6/uL (4.1-5.3); Red Cell Distribution Width 15.7 % (12.1-15.1); White Blood Count 7.6 10^3/uL (4.0-10.0)
[2021-08-08 17:50] LABS: Absolute Segmented Neutrophil 6.7 10/cmm (1.6-7.1); Lymphocytes 6 %; Segmented Neutrophils 88 %; Total Cells Counted 100 (0-100)
[2021-08-08 17:51] LABS: Absolute Eosinophils 0.1 10^3/cmm (0.0-0.7); Eosinophils 2 %; Monocytes Absolute 0.3 10^3/cmm (0.1-0.6); Platelet Estimate Decreased (Normal)
== END 2021-08-08 16:07 | disposition home or self-care (01) ==
LOC: LAB 16:08
PROVIDERS: PCP Podiatrist Foot & Ankle Surgery; Visit Provider Internal Medicine Infectious Disease
DX: E11.621 Type 2 diabetes mellitus with foot ulcer (principal); M86.9 Osteomyelitis, unspecified; I73.9 Peripheral vascular disease, unspecified; E11.22 Type 2 diabetes mellitus with diabetic chronic kidney disease; N18.6 End stage renal disease
CPT/HCPCS: 85007; 85027

== ENCOUNTER 2021-08-10 10:48 | Outpatient (CLI) | payer MEDICARE, OTHER, SELFPAY ==
[2021-08-10 11:16] LABS: Hematocrit 23.1 % (42.0-52.0); Hemoglobin 7.6 g/dL (11.7-16.6); Mean Corpuscular HGB Conc 32.9 g/dL (30.0-36.0); Mean Corpuscular Hemoglobin 31.1 pg (28.0-34.0); Mean Corpuscular Volume 94.7 fl (80-94); Mean Platelet Volume 10.1 fL (7.4-10.4); Platelet Count 164 10^3/cmm (130-400); Red Blood Count 2.44 10^6/uL (4.1-5.3); Red Cell Distribution Width 15.8 % (12.1-15.1); White Blood Count 7.7 10^3/uL (4.0-10.0)
[2021-08-10 11:50] LABS: Alanine Aminotransferase 8 U/L (0-41); Alkaline Phosphatase 142 IU/L (40-130); Anion Gap 19.8 (5-19); Aspartate Amino Transferase 12 U/L (0-40); Blood Urea Nitrogen 72 mg/dL (8-23); Carbon Dioxide 22 mmol/L (22-29); Chloride 96 mmol/L (98-107); Globulin 3.2 g/dL (1.3-4.6); Glomerular Filtration Rate 7.5 mL/min (90-130); Glucose 131 mg/dL (65-115); Osmolality Calculated 301 mOsm/kg (285-295); Potassium 3.8 mmol/L (3.5-5.1); Sodium 134 mmol/L (136-145); Total Bilirubin 0.3 mg/dL (0.15-1.2); Total Protein 6.2 g/dL (6.6-8.7)
[2021-08-10 12:33] LABS: Absolute Eosinophils 0.5 10^3/cmm (0.0-0.7); Absolute Neutrophil 5.8 10^3/cmm (1.4-6.5); Absolute Segmented Neutrophil 5.7 10/cmm (1.6-7.1); Band Neutrophils Absolute 0.1 10^3/cmm (0.0-1.2); Basophils Absolute 0.1 10^3/cmm (0.0-0.2); Eosinophils 7 %; Lymphocytes 5 %; Lymphocytes Absolute 0.5 10^3/cmm (1.2-3.4); Monocytes Absolute 0.8 10^3/cmm (0.1-0.6); Platelet Estimate Normal (Normal); Segmented Neutrophils 74 %; Total Cells Counted 100 (0-100)
== END 2021-08-10 10:49 | disposition home or self-care (01) ==
PROVIDERS: PCP Podiatrist Foot & Ankle Surgery; Visit Provider Internal Medicine Infectious Disease
DX: L98.499 Non-pressure chronic ulcer of skin of other sites with unspecified severity (principal)
CPT/HCPCS: 80053; 85007; 85027

== ENCOUNTER 2021-08-17 11:17 | Outpatient (CLI) | payer MEDICARE, OTHER, SELFPAY ==
[2021-08-17 11:38] LABS: Hematocrit 21.4 % (42.0-52.0); Hemoglobin 6.9 g/dL (11.7-16.6); Mean Corpuscular HGB Conc 32.2 g/dL (30.0-36.0); Mean Corpuscular Hemoglobin 31.1 pg (28.0-34.0); Mean Corpuscular Volume 96.4 fl (80-94); Mean Platelet Volume 10.7 fL (7.4-10.4); Platelet Count 128 10^3/cmm (130-400); Red Blood Count 2.22 10^6/uL (4.1-5.3); Red Cell Distribution Width 16.1 % (12.1-15.1); White Blood Count 8.5 10^3/uL (4.0-10.0)
[2021-08-17 12:04] LABS: Alanine Aminotransferase 7 U/L (0-41); Albumin Level 3.1 g/dL (3.5-5.2); Alkaline Phosphatase 173 IU/L (40-130); Aspartate Amino Transferase 13 U/L (0-40); Blood Urea Nitrogen 73 mg/dL (8-23); Calcium 8.5 mg/dL (8.5-10.5); Carbon Dioxide 21 mmol/L (22-29); Chloride 97 mmol/L (98-107); Globulin 2.7 g/dL (1.3-4.6); Glomerular Filtration Rate 7.8 mL/min (90-130); Glucose 158 mg/dL (65-115); Osmolality Calculated 307 mOsm/kg (285-295); Sodium 136 mmol/L (136-145); Total Bilirubin 0.3 mg/dL (0.15-1.2); Total Protein 5.8 g/dL (6.6-8.7)
[2021-08-17 12:32] LABS: Absolute Segmented Neutrophil 6.4 10/cmm (1.6-7.1); Band Neutrophils Absolute 0.2 10^3/cmm (0.0-1.2); Segmented Neutrophils 75 %
[2021-08-17 12:33] LABS: Absolute Eosinophils 0.5 10^3/cmm (0.0-0.7); Absolute Neutrophil 6.5 10^3/cmm (1.4-6.5); Eosinophils 7 %; Lymphocytes 9 %; Lymphocytes Absolute 0.9 10^3/cmm (1.2-3.4); Monocytes Absolute 0.4 10^3/cmm (0.1-0.6); Platelet Estimate Decreased (Normal)
[2021-08-17 12:34] LABS: Anisocytosis Trace; Ovalocytes Trace; Spherocytes Trace
[2021-08-17 12:35] LABS: Total Cells Counted 100 (0-100)
== END 2021-08-17 11:18 | disposition home or self-care (01) ==
LOC: LAB 11:19
PROVIDERS: PCP Podiatrist Foot & Ankle Surgery; Visit Provider Internal Medicine Infectious Disease
DX: M86.9 Osteomyelitis, unspecified (principal)
CPT/HCPCS: 80053; 85007; 85027

== ENCOUNTER → 2021-08-19 13:47 | Outpatient (BNVA) | payer MEDICARE, OTHER, SELFPAY | PROVIDERS: PCP Podiatrist Foot & Ankle Surgery; Visit Provider Podiatrist Foot & Ankle Surgery | DX: L97.514 Non-pressure chronic ulcer of other part of right foot with necrosis of bone (principal); T87.81 Dehiscence of amputation stump | CPT/HCPCS: 73630 ==

== ENCOUNTER 2021-08-25 10:54 | Outpatient (CLI) | payer MEDICARE, OTHER, SELFPAY ==
[2021-08-25 11:33] LABS: Erythrocyte Sedimentation Rate 20 mm/hr (0-10)
[2021-08-25 11:39] LABS: C Reactive Protein 29.3 mg/L (0.0-4.9)
== END 2021-08-25 10:55 | disposition home or self-care (01) ==
PROVIDERS: PCP Podiatrist Foot & Ankle Surgery; Visit Provider Internal Medicine Infectious Disease
DX: M86.60 Other chronic osteomyelitis, unspecified site (principal)
CPT/HCPCS: 85651; 86140

== ENCOUNTER 2021-09-12 10:43 | Outpatient (CLI) | payer MEDICARE, OTHER, SELFPAY ==
[2021-09-12 11:01] LABS: Hematocrit 23.1 % (42.0-52.0); Hemoglobin 7.4 g/dL (11.7-16.6); Mean Platelet Volume 10.3 fL (7.4-10.4); Platelet Count 149 10^3/cmm (130-400); Red Blood Count 2.31 10^6/uL (4.1-5.3); Red Cell Distribution Width 17.8 % (12.1-15.1); White Blood Count 9.3 10^3/uL (4.0-10.0)
[2021-09-12 11:24] LABS: Alanine Aminotransferase 11 U/L (0-41); Alkaline Phosphatase 109 IU/L (40-130); Anion Gap 20.5 (5-19); Aspartate Amino Transferase 15 U/L (0-40); Blood Urea Nitrogen 63 mg/dL (8-23); Calcium 8.6 mg/dL (8.5-10.5); Carbon Dioxide 22 mmol/L (22-29); Chloride 94 mmol/L (98-107); Globulin 3.3 g/dL (1.3-4.6); Glomerular Filtration Rate 6.7 mL/min (90-130); Glucose 164 mg/dL (65-115); Osmolality Calculated 298 mOsm/kg (285-295); Potassium 3.5 mmol/L (3.5-5.1); Sodium 133 mmol/L (136-145); Total Bilirubin 0.3 mg/dL (0.15-1.2); Total Protein 6.3 g/dL (6.6-8.7)
[2021-09-12 11:29] LABS: Absolute Eosinophils 0.4 10^3/cmm (0.0-0.7); Absolute Segmented Neutrophil 6.5 10/cmm (1.6-7.1); Band Neutrophils Absolute 0.3 10^3/cmm (0.0-1.2); Eosinophils 5 %; Lymphocytes 13 %; Lymphocytes Absolute 1.2 10^3/cmm (1.2-3.4); Monocytes Absolute 0.8 10^3/cmm (0.1-0.6); Segmented Neutrophils 70 %; Total Cells Counted 100 (0-100)
[2021-09-12 11:30] LABS: Absolute Neutrophil 6.8 10^3/cmm (1.4-6.5); Anisocytosis 2+; Giant Platelets Trace; Macrocytosis 2+; Platelet Estimate Normal (Normal); Poikilocytosis Trace; Smudge Cells 1+
== END 2021-09-12 10:44 | disposition home or self-care (01) ==
LOC: LAB 10:48
PROVIDERS: PCP Podiatrist Foot & Ankle Surgery; Visit Provider Internal Medicine Infectious Disease
DX: M86.171 Other acute osteomyelitis, right ankle and foot (principal)
CPT/HCPCS: 80053; 85007; 85027

== ENCOUNTER → 2021-09-14 11:39 | Outpatient (BNVA) | payer MEDICARE, OTHER, SELFPAY | PROVIDERS: PCP Podiatrist Foot & Ankle Surgery; Visit Provider Podiatrist Foot & Ankle Surgery | DX: L97.512 Non-pressure chronic ulcer of other part of right foot with fat layer exposed (principal); Z89.431 Acquired absence of right foot; M86.8X7 Other osteomyelitis, ankle and foot | CPT/HCPCS: 73630 ==

== ENCOUNTER 2021-09-16 10:12 | Outpatient (CLI) | payer MEDICARE, OTHER, SELFPAY ==
[2021-09-16 10:36] LABS: Hematocrit 39.6 % (42.0-52.0); Mean Corpuscular HGB Conc 32.8 g/dL (30.0-36.0); Mean Corpuscular Hemoglobin 32.3 pg (28.0-34.0); Mean Corpuscular Volume 98.5 fl (80-94); Mean Platelet Volume 10.4 fL (7.4-10.4); Platelet Count 92 10^3/cmm (130-400); Red Blood Count 4.02 10^6/uL (4.1-5.3); Red Cell Distribution Width 17.6 % (12.1-15.1); White Blood Count 5.2 10^3/uL (4.0-10.0)
[2021-09-16 10:52] LABS: Alanine Aminotransferase 7 U/L (0-41); Albumin Level 3.1 g/dL (3.5-5.2); Alkaline Phosphatase 134 IU/L (40-130); Anion Gap 22.6 (5-19); Aspartate Amino Transferase 15 U/L (0-40); Blood Urea Nitrogen 64 mg/dL (8-23); Calcium 9.6 mg/dL (8.5-10.5); Carbon Dioxide 20 mmol/L (22-29); Chloride 95 mmol/L (98-107); Glucose 177 mg/dL (65-115); Osmolality Calculated 301 mOsm/kg (285-295); Potassium 3.6 mmol/L (3.5-5.1); Sodium 134 mmol/L (136-145); Total Bilirubin 0.3 mg/dL (0.15-1.2); Total Protein 6.1 g/dL (6.6-8.7)
[2021-09-16 11:22] LABS: Absolute Segmented Neutrophil 3.7 10/cmm (1.6-7.1); Band Neutrophils Absolute 0.1 10^3/cmm (0.0-1.2); Lymphocytes 4 %; Monocytes Absolute 0.8 10^3/cmm (0.1-0.6); Segmented Neutrophils 71 %; Total Cells Counted 100 (0-100)
[2021-09-16 11:23] LABS: Absolute Eosinophils 0.4 10^3/cmm (0.0-0.7); Absolute Neutrophil 3.8 10^3/cmm (1.4-6.5); Eosinophils 8 %; Lymphocytes Absolute 0.2 10^3/cmm (1.2-3.4); Platelet Estimate Decreased (Normal)
== END 2021-09-16 10:13 | disposition home or self-care (01) ==
PROVIDERS: PCP Podiatrist Foot & Ankle Surgery; Visit Provider Internal Medicine Infectious Disease
DX: L97.518 Non-pressure chronic ulcer of other part of right foot with other specified severity (principal)
CPT/HCPCS: 80053; 85007; 85027

== ENCOUNTER 2021-09-19 11:19 | Outpatient (CLI) | payer MEDICARE, OTHER, SELFPAY ==
[2021-09-19 12:06] LABS: Hemoglobin 7.3 g/dL (11.7-16.6); Mean Corpuscular HGB Conc 31.7 g/dL (30.0-36.0); Mean Corpuscular Hemoglobin 31.9 pg (28.0-34.0); Mean Corpuscular Volume 100.4 fl (80-94); Mean Platelet Volume 9.9 fL (7.4-10.4); Platelet Count 150 10^3/cmm (130-400); Red Blood Count 2.29 10^6/uL (4.1-5.3); Red Cell Distribution Width 17.2 % (12.1-15.1); White Blood Count 10.5 10^3/uL (4.0-10.0)
[2021-09-19 12:13] LABS: Alanine Aminotransferase 7 U/L (0-41); Albumin Level 3.2 g/dL (3.5-5.2); Alkaline Phosphatase 167 IU/L (40-130); Anion Gap 23.4 (5-19); Aspartate Amino Transferase 15 U/L (0-40); Blood Urea Nitrogen 66 mg/dL (8-23); Calcium 9.4 mg/dL (8.5-10.5); Carbon Dioxide 20 mmol/L (22-29); Chloride 97 mmol/L (98-107); Globulin 3.2 g/dL (1.3-4.6); Glomerular Filtration Rate 7.3 mL/min (90-130); Glucose 194 mg/dL (65-115); Osmolality Calculated 308 mOsm/kg (285-295); Potassium 3.4 mmol/L (3.5-5.1); Sodium 137 mmol/L (136-145); Total Bilirubin 0.3 mg/dL (0.15-1.2); Total Protein 6.4 g/dL (6.6-8.7)
[2021-09-19 12:45] LABS: Absolute Eosinophils 0.2 10^3/cmm (0.0-0.7); Absolute Segmented Neutrophil 7.5 10/cmm (1.6-7.1); Band Neutrophils Absolute 0.5 10^3/cmm (0.0-1.2); Eosinophils 2 %; Lymphocytes 11 %; Macrocytosis 1+; Monocytes Absolute 1.2 10^3/cmm (0.1-0.6); Platelet Estimate Normal (Normal); Segmented Neutrophils 71 %; Total Cells Counted 100 (0-100)
[2021-09-19 13:11] LABS: Lymphocytes Absolute 1.2 10^3/cmm (1.2-3.4)
== END 2021-09-19 11:20 | disposition home or self-care (01) ==
PROVIDERS: PCP Podiatrist Foot & Ankle Surgery; Visit Provider Internal Medicine Infectious Disease
DX: M86.9 Osteomyelitis, unspecified (principal)
CPT/HCPCS: 80053; 85007; 85027

== ENCOUNTER 2021-09-26 12:24 | Outpatient (CLI) | payer MEDICARE, OTHER, SELFPAY ==
[2021-09-26 12:55] LABS: Alanine Aminotransferase 7 U/L (0-41); Albumin Level 3.2 g/dL (3.5-5.2); Alkaline Phosphatase 161 IU/L (40-130); Anion Gap 25.4 (5-19); Aspartate Amino Transferase 11 U/L (0-40); Blood Urea Nitrogen 66 mg/dL (8-23); Calcium 8.8 mg/dL (8.5-10.5); Carbon Dioxide 20 mmol/L (22-29); Chloride 91 mmol/L (98-107); Globulin 2.9 g/dL (1.3-4.6); Glomerular Filtration Rate 7.1 mL/min (90-130); Glucose 158 mg/dL (65-115); Osmolality Calculated 298 mOsm/kg (285-295); Potassium 3.4 mmol/L (3.5-5.1); Sodium 133 mmol/L (136-145); Total Bilirubin 0.3 mg/dL (0.15-1.2); Total Protein 6.1 g/dL (6.6-8.7)
[2021-09-26 14:27] LABS: Hematocrit 59.2 % (42.0-52.0); Mean Corpuscular HGB Conc 32.1 g/dL (30.0-36.0); Mean Corpuscular Hemoglobin 33.5 pg (28.0-34.0); Mean Corpuscular Volume 104.2 fl (80-94); Mean Platelet Volume 9.7 fL (7.4-10.4); Platelet Count 30 10^3/cmm (130-400); Red Blood Count 5.68 10^6/uL (4.1-5.3); Red Cell Distribution Width 19.7 % (12.1-15.1); White Blood Count 4.9 10^3/uL (4.0-10.0)
[2021-09-26 14:29] LABS: Absolute Eosinophils 0.3 10^3/cmm (0.0-0.7); Absolute Neutrophil 3.5 10^3/cmm (1.4-6.5); Absolute Segmented Neutrophil 3.5 10/cmm (1.6-7.1); Eosinophils 7 %; Lymphocytes 18 %; Lymphocytes Absolute 0.9 10^3/cmm (1.2-3.4); Monocytes Absolute 0.2 10^3/cmm (0.1-0.6); Platelet Estimate Decreased (Normal); Segmented Neutrophils 71 %; Total Cells Counted 100 (0-100)
[2021-09-26 14:30] LABS: Anisocytosis 2+; Burr Cells 1+; Microcytosis Trace; Ovalocytes 1+; Poikilocytosis 2+
== END 2021-09-26 12:25 | disposition home or self-care (01) ==
PROVIDERS: PCP Podiatrist Foot & Ankle Surgery; Visit Provider Internal Medicine Infectious Disease
DX: M86.9 Osteomyelitis, unspecified (principal)
CPT/HCPCS: 80053; 85007; 85027

== ENCOUNTER → 2021-09-29 11:13 | Outpatient (BNVA) | payer MEDICARE, OTHER, SELFPAY | PROVIDERS: PCP Podiatrist Foot & Ankle Surgery; Visit Provider Podiatrist Foot & Ankle Surgery | DX: L97.514 Non-pressure chronic ulcer of other part of right foot with necrosis of bone (principal); Z89.431 Acquired absence of right foot | CPT/HCPCS: 73630 ==

== ENCOUNTER 2021-10-03 12:03 | Outpatient (CLI) | payer MEDICARE, OTHER, SELFPAY ==
[2021-10-03 12:41] LABS: Hemoglobin 6.7 g/dL (11.7-16.6); Mean Corpuscular HGB Conc 33.2 g/dL (30.0-36.0); Mean Corpuscular Hemoglobin 33.5 pg (28.0-34.0); Mean Platelet Volume 10.9 fL (7.4-10.4); Platelet Count 86 10^3/cmm (130-400); Red Cell Distribution Width 17.5 % (12.1-15.1); White Blood Count 11.3 10^3/uL (4.0-10.0)
[2021-10-03 13:04] LABS: Alanine Aminotransferase 10 U/L (0-41); Albumin Level 3.2 g/dL (3.5-5.2); Alkaline Phosphatase 152 IU/L (40-130); Anion Gap 24.1 (5-19); Aspartate Amino Transferase 14 U/L (0-40); Blood Urea Nitrogen 75 mg/dL (8-23); C Reactive Protein 97.3 mg/L (0.0-4.9); Calcium 8.3 mg/dL (8.5-10.5); Carbon Dioxide 19 mmol/L (22-29); Chloride 92 mmol/L (98-107); Globulin 2.4 g/dL (1.3-4.6); Glomerular Filtration Rate 6.1 mL/min (90-130); Glucose 240 mg/dL (65-115); Osmolality Calculated 304 mOsm/kg (285-295); Potassium 3.1 mmol/L (3.5-5.1); Sodium 132 mmol/L (136-145); Total Bilirubin 0.3 mg/dL (0.15-1.2); Total Protein 5.6 g/dL (6.6-8.7)
[2021-10-03 13:16] LABS: Erythrocyte Sedimentation Rate 19 mm/hr (0-10)
[2021-10-03 13:31] LABS: Hematocrit 20.2 % (42.0-52.0)
[2021-10-03 13:33] LABS: Absolute Eosinophils 0.3 10^3/cmm (0.0-0.7); Absolute Segmented Neutrophil 9.4 10/cmm (1.6-7.1); Band Neutrophils Absolute 0.5 10^3/cmm (0.0-1.2); Eosinophils 3 %; Lymphocytes 9 %; Monocytes Absolute 0.1 10^3/cmm (0.1-0.6); Segmented Neutrophils 83 %; Total Cells Counted 100 (0-100)
[2021-10-03 13:34] LABS: Anisocytosis 1+; Ovalocytes Trace; Poikilocytosis 1+
[2021-10-03 13:35] LABS: Absolute Neutrophil 9.8 10^3/cmm (1.4-6.5); Platelet Estimate Decreased (Normal)
== END 2021-10-03 12:04 | disposition home or self-care (01) ==
LOC: LAB 12:14
PROVIDERS: PCP Podiatrist Foot & Ankle Surgery; Visit Provider Internal Medicine Infectious Disease
DX: M86.9 Osteomyelitis, unspecified (principal)
CPT/HCPCS: 80053; 85007; 85027; 85651; 86140

== ENCOUNTER 2021-10-05 10:27 | Outpatient (CLI) | payer MEDICARE, OTHER, SELFPAY ==
[2021-10-05 10:55] LABS: Hemoglobin 6.6 g/dL (11.7-16.6); Mean Corpuscular HGB Conc 32.8 g/dL (30.0-36.0); Mean Corpuscular Hemoglobin 32.7 pg (28.0-34.0); Mean Corpuscular Volume 99.5 fl (80-94); Mean Platelet Volume 10.6 fL (7.4-10.4); Platelet Count 96 10^3/cmm (130-400); Red Blood Count 2.02 10^6/uL (4.1-5.3); Red Cell Distribution Width 17.1 % (12.1-15.1); White Blood Count 6.3 10^3/uL (4.0-10.0)
[2021-10-05 11:30] LABS: Hematocrit 20.1 % (42.0-52.0)
[2021-10-05 11:34] LABS: Absolute Eosinophils 0.1 10^3/cmm (0.0-0.7); Absolute Neutrophil 4.3 10^3/cmm (1.4-6.5); Absolute Segmented Neutrophil 3.7 10/cmm (1.6-7.1); Anisocytosis 1+; Band Neutrophils Absolute 0.6 10^3/cmm (0.0-1.2); Basophils Absolute 0.2 10^3/cmm (0.0-0.2); Eosinophils 3 %; Lymphocytes 20 %; Lymphocytes Absolute 1.3 10^3/cmm (1.2-3.4); Monocytes Absolute 0.4 10^3/cmm (0.1-0.6); Platelet Estimate Decreased (Normal); Segmented Neutrophils 59 %; Total Cells Counted 100 (0-100)
== END 2021-10-05 10:28 | disposition home or self-care (01) ==
LOC: LAB 10:31
PROVIDERS: PCP Podiatrist Foot & Ankle Surgery; Visit Provider Internal Medicine Infectious Disease
DX: M86.9 Osteomyelitis, unspecified (principal)
CPT/HCPCS: 85007; 85027

== ENCOUNTER 2021-10-05 14:41 | Inpatient (IN) | payer MEDICARE, OTHER, SELFPAY ==
[2021-10-05] VITALS (11 sets, daily range): BP systolic 86–128; BP diastolic 61–83; PULSE 66–130; RESP 15–24; TEMP 37.3–39.5; O2SAT 91–99; BMI 42.3
--- NOTE | 2021-10-05 15:22 | ECG_ITS ---
[facility] Test Date: 2021-10-05 Pat Name: Levi Bonilla Department: Room: Gender: Male Pack Puller: : 1955 Requested By: Jose Roberto Alvarado Order Number: [id number] Bruce MD: Demi Gan M.D. Measurements Intervals [place] Rate: 121 P: TX: QRS: 59 QRSD: 102 T: 0 QT: 240 QTc: 341 Interpretive Statements ATRIAL FIBRILLATION WITH RAPID VENTRICULAR RESPONSE NONSPECIFIC ST & T-WAVE ABNORMALITY ABNORMAL RHYTHM ECG Compared to ECG 10/05/2021 15:16:39 Ventricular premature complex(es) no longer present Aberrant conduction of supraventricular beat(s) no longer present T-wave abnormality still present Electronically Signed On 10-06-2021 0:03:30 PHOTOGRAPHY COORDINATOR by Demi Gan M.D. [id number]
--- NOTE | 2021-10-05 15:22 | XR_ITS ---
WS: [id number] Portable AP upright chest, 10/05/2021 Clinical Data: dyspnea/cough Comparison: Portable chest, 06/09/2021. Findings: There is a minimal patchy opacity in the right lower lobe which could represent pneumonia a nd/or atelectasis. No nodules, masses or effusions are seen. The heart is enlarged. The pulmonary vas cularity is not increased. No pneumothorax is seen. The aortic arch and descending thoracic aorta harjinder w mild tortuosity. There is a small right internal jugular venous catheter which ends in the superior vena cava. XR/XR chest 1V portable [id number] Impression: 1. Minimal patchy right lower lobe pulmonary opacity which could represent acut e pneumonia. 2. Cardiomegaly and atherosclerosis.
--- NOTE | 2021-10-05 15:36 | W.ED.FEVER ---
HPI - Fever General: Chief Complaint: Fever Stated Complaint: AFIB W/RVR/ LOW HGB Time Seen by Provider: 10/05/21 14:43 History of Present Illness: 66-year-old male presents emergency room via EMS with fever andMild altered mental status. Rapid heart rate. Patient has a history of atrial fibrillation rapid ventricular response addition that he is end-stage renal disease and is on peritoneal dialysis. Began running a fever today feeling extremely weak. He denies any abdominal discomfort or chest pain. MD elicited complaint: fever Pertinent past history: diabetes and other (End-stage renal disease) Onset (ago): hour(s) Exacerbating factors: nothing Relieving factors: nothing Associated symptoms: Reports confusion and nausea; Deny abdominal pain, flank pain, chills, chest pain, headache(s), myalgias or nasal congestion Treatments prior to arrival fever: none Review of Systems Const: Denies: chills ENMT: Denies: nasal congestion Card: Denies: chest pain Resp: Reports: dyspnea and non-productive cough; Denies: productive cough GI: Reports: nausea; Denies: abdominal pain : Denies: flank pain Skin/Breast: Denies: rash or pruritus Neuro: Reports: confusion; Denies: headache(s) [facility] ED PFSH: Medical History Anemia Arteriovenous fistula of left upper extremity on peritoneal dialysis, not being used Atrial fibrillation, chronic Charcot's arthropathy 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 Critical limb ischemia with history of revascularization of same extremity (11/2020) Dehiscence of amputation stump Diabetic neuropathy DM type 2 (diabetes mellitus, type 2) End stage renal disease Gout Hammertoe Hx of blood clots Hypertension Hypothyroidism Morbid obesity Needs peripherally inserted central catheter (PICC) Non-pressure chronic ulcer of other part of right foot with necrosis of bone Non-pressure chronic ulcer of other part of right foot with necrosis of muscle Osteomyelitis (08/2020) right foot, MSSA and Group C strep Peripheral arterial disease Peripheral vascular disease severe Septic thrombophlebitis of upper extremities (07/06/21) related to PICC line Septicemia, Pseudomonas (09/2020) Surgical History 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 Woodall Peritoneal dialysis catheter in place Presence of Watchman left atrial appendage closure device S/P PICC central line placement with subsequent removal due to thrombophlebitis and RIJ DVT Family History Other Cancer Family history non-contributory Social History Alcohol intake: former Former alcohol use details: use to drink occassionally, none in years Lives independently: Yes Housing: House Physical Exam Const: GENERAL APPEARANCE: cooperative ORIENTATION/CONSCIOUSNESS: Yes awake, Yes oriented to person, Yes oriented to place and Yes oriented to time HENMT: COMMON NORMALS: normocephalic and atraumatic HEAD & SCALP: normocephalic and atraumatic Neck/C-Spine: COMMON NORMALS: no JVD Resp: COMMON NORMALS: normal respiratory effort, No retractions, No use of accessory muscles and clear to auscultation bilaterally AUSCULTATION: clear to auscultation bilaterally Cardio: COMMON NORMALS: no JVD and No murmurs present (Cardio) RATE: tachycardic RHYTHM: abnormal rhythm irregularly irregular GI: COMMON NORMALS: Soft to palpation and No hepatosplenomegaly present INSPECTION: Yes abdominal distension and Yes Fluid wave present AUSCULTATION: Yes Hypoactive bowel sounds present PALPATION: Yes Soft to palpation, Yes Tenderness to palpation present (GI), No Guarding due to palpation present (GI) and Yes No hepatosplenomegaly present PERCUSSION: Fluid wave present Extremity: COMMON NORMALS: capillary refill normal and no calf tenderness GENERAL: Yes edema (1+ lower extremities) Neuro: SENSORIUM/ORIENTATION: Yes oriented to person, Yes oriented to place and Yes oriented to time Skin: COMMON NORMALS: no rashes or lesions noted GENERAL SKIN EXAM: no rashes or lesions noted Course Vital Signs: Vital signs: Vital Signs Temperature 103.1 F H 10/05/21 15:02 Respiratory Rate 24 H 10/05/21 15:23 Blood Pressure 105/74 10/05/21 15:23 Pulse Oximetry 96 10/05/21 15:23 MDM - Fever Medical Decision Making Patient presents with sepsis A. fib with RVR end-stage renal disease which is worsening. He is concerned he may have peritonitis for getting a fluid sample for culture with already done blood cultures started him on ceftriaxone. Based on chest x-ray him also concerned he has Covid. He was checked last week for COVID the rapid antigen but does not sound like a PCR was done he does have some lymphocytopenia as well. He has been started on Cardizem for his A. fib with RVR. He has significant anemia and a unit of blood has been ordered discussed with Dr. Hackett orders are written. Medical Records I reviewed the patient's medical records. Lab Data I reviewed the patient's lab results. : 10/05/21 15:41 10/05/21 15:41 Radiology Impressions Chest X-Ray 10/05/21 15:22 Impression: 1. Minimal patchy right lower lobe pulmonary opacity which could represent acute pneumonia. 2. Cardiomegaly and atherosclerosis. Laboratory Results WBC 10.5 10^3/uL (4.0-10.0) H 10/05/21 15:41 RBC 2.04 10^6/uL (4.1-5.3) L 10/05/21 15:41 Hgb 6.8 g/dL (11.7-16.6) L 10/05/21 15:41 Hct 20.8 % (42.0-52.0) L* 10/05/21 15:41 MCV 102.0 fl (80-94) H 10/05/21 15:41 MCH 33.3 pg (28.0-34.0) 10/05/21 15:41 MCHC 32.7 g/dL (30.0-36.0) 10/05/21 15:41 RDW 17.2 % (12.1-15.1) H 10/05/21 15:41 Plt Count 87 10^3/cmm (130-400) L 10/05/21 15:41 MPV 11.2 fL (7.4-10.4) H 10/05/21 15:41 Neut % (Auto) 93.5 % 10/05/21 15:41 Lymph % (Auto) 1.5 % 10/05/21 15:41 [place] % (Auto) 3.2 % 10/05/21 15:41 Eos % (Auto) 0.2 % 10/05/21 15:41 Baso % (Auto) 0.4 % 10/05/21 15:41 Neut # (Auto) 9.78 10^3/uL (1.8-7.7) H 10/05/21 15:41 Lymph # (Auto) 0.2 10^3/uL (0.8-4.8) L 10/05/21 15:41 [place] # (Auto) 0.3 10^3/uL (0.2-0.9) 10/05/21 15:41 Eos # (Auto) 0.0 10^3/uL (0.0-0.8) 10/05/21 15:41 Baso # (Auto) 0.0 10^3/uL (0.0-0.1) 10/05/21 15:41 Nucleated RBC % (auto) 0 % 10/05/21 15:41 Nucleated RBCs # 0.0 /100WBC 10/05/21 15:41 Sodium 132 mmol/L (136-145) L 10/05/21 15:41 Potassium 3.3 mmol/L (3.5-5.1) L 10/05/21 15:41 Chloride 91 mmol/L (98-107) L 10/05/21 15:41 Carbon Dioxide 17 mmol/L (22-29) L 10/05/21 15:41 Anion Gap 27.3 (5-19) H 10/05/21 15:41 BUN 73 mg/dL (8-23) H 10/05/21 15:41 Creatinine 9.2 mg/dL (0.7-1.2) H* 10/05/21 15:41 GFR Calculation 5.8 mL/min (90-130) L 10/05/21 15:41 Glucose 191 mg/dL (65-115) H 10/05/21 15:41 Calculated Osmolality 301 mOsm/kg (285-295) H 10/05/21 15:41 Lactic Acid 5.4 mmol/L (0.5-2.2) H* 10/05/21 15:41 Calcium 8.3 mg/dL (8.5-10.5) L 10/05/21 15:41 Magnesium 1.3 mg/dL (1.7-2.3) L 10/05/21 15:41 Total Bilirubin 0.3 mg/dL (0.15-1.2) 10/05/21 15:41 AST 18 U/L (0-40) 10/05/21 15:41 ALT 12 U/L (0-41) 10/05/21 15:41 Alkaline Phosphatase 148 IU/L (40-130) H 10/05/21 15:41 Creatine Kinase 53 U/L (39-308) 10/05/21 15:41 Troponin T Baseline 262 ng/L (0-15) H* 10/05/21 15:41 NT-Pro-B Natriuret Pep 40954 pg/mL (0-125) H 10/05/21 15:41 Total Protein 5.4 g/dL (6.6-8.7) L 10/05/21 15:41 Albumin 3.4 g/dL (3.5-5.2) L 10/05/21 15:41 Globulin 2.0 g/dL (1.3-4.6) 10/05/21 15:41 Lipase 81 U/L (13-60) H 10/05/21 15:41 Blood Type O Negative 10/05/21 15:41 Rho(D) Type Negative 10/05/21 15:41 Antibody Screen Negative 10/05/21 15:41 Crossmatch See Detail 10/05/21 15:41 Discharge Plan Discharge Patient Disposition: Admitted As Inpatient Clinical Impression: COVID-19, Sepsis, ESRD (end stage renal disease), Fever, Anemia, Atrial fibrillation with RVR Condition: Stable Prescriptions: No Action linezolid 600 mg tablet 600 mg PO BID 14 Days Qty: 28 0RF amlodipine 10 mg tablet 10 mg PO BEDTIME 0RF metoprolol tartrate 100 mg tablet See Rx Instructions .ROUTE .COMPLEX Qty: 180 0RF Dose Instruction: Take 1 tablet by mouth twice daily Rx Instructions: Take 1 tablet by mouth twice daily cyclobenzaprine 10 mg tablet 5 mg PO Q8H PRN (Reason: muscle spasms) 0RF torsemide 100 mg tablet 100 mg PO QAM 0RF ergocalciferol (vitamin D2) 1,250 mcg (50,000 unit) capsule 1,250 mcg PO Q7D 0RF Rx Instructions: on sun losartan 100 mg tablet 100 mg PO BEDTIME 0RF citalopram 20 mg tablet 20 mg PO BEDTIME 0RF pantoprazole 40 mg tablet,delayed release (DR/EC) 40 mg PO QAM 0RF allopurinol 300 mg tablet 300 mg PO QAM 0RF Rx Instructions: recommend taking after meal. clonidine HCl 0.1 mg tablet 0.1 mg PO BID 0RF paricalcitol [Zemplar] 1 mcg Capsule 1 mcg PO .FIVE TIMES A WEEK 0RF polysaccharide iron complex [Ferrex 150] 150 mg iron capsule 150 mg PO BID 0RF levothyroxine 175 mcg tablet 175 mcg PO QAM 0RF aspirin 81 mg Tablet,Delayed Release (Dr/Ec) 81 mg PO BEDTIME 0RF omega 7-ret-jbm-fish oil [Fish Oil] 1,200 (144-216) mg Capsule 1 cap PO BID Qty: 0 0RF Renal Factor Plus 1 tab PO DAILY 0RF oxycodone 5 mg capsule 5 mg PO Q8H PRN (Reason: pain) Qty: 10 0RF Senna Plus 8.6-50 mg capsule 1 tab-cap PO DAILY Qty: 10 0RF Auryxia 210 mg iron Tablet 630 mg PO TIDWM 0RF glipizide 5 mg tablet 5 mg PO QAM 0RF atorvastatin 20 mg Tablet 20 mg PO DAILY 0RF Referrals: Frankie Woodall DPM [Primary Care Provider] - Coding Level of Care Code ED Endless Bed Drum Sander for Chg Fwd Exam Comprehensive
[2021-10-05 16:04] LABS: Basophils % 0.4 %; Eosinophils % 0.2 %; Hemoglobin 6.8 g/dL (11.7-16.6); Lymphocytes # 0.2 10^3/uL (0.8-4.8); Lymphocytes % 1.5 %; Mean Corpuscular HGB Conc 32.7 g/dL (30.0-36.0); Mean Corpuscular Hemoglobin 33.3 pg (28.0-34.0); Mean Platelet Volume 11.2 fL (7.4-10.4); Monocytes # 0.3 10^3/uL (0.2-0.9); Monocytes % 3.2 %; Neutrophils # 9.78 10^3/uL (1.8-7.7); Neutrophils % 93.5 %; Nucleated Red Blood Cells % 0 %; Platelet Count 87 10^3/cmm (130-400); Red Blood Count 2.04 10^6/uL (4.1-5.3); Red Cell Distribution Width 17.2 % (12.1-15.1); White Blood Count 10.5 10^3/uL (4.0-10.0)
[2021-10-05 16:26] LABS: Hematocrit 20.8 % (42.0-52.0)
[2021-10-05 16:32] LABS: Alanine Aminotransferase 12 U/L (0-41); Albumin Level 3.4 g/dL (3.5-5.2); Alkaline Phosphatase 148 IU/L (40-130); Aspartate Amino Transferase 18 U/L (0-40); Blood Urea Nitrogen 73 mg/dL (8-23); Calcium 8.3 mg/dL (8.5-10.5); Carbon Dioxide 17 mmol/L (22-29); Creatine Phosphokinase 53 U/L (39-308); Glomerular Filtration Rate 5.8 mL/min (90-130); Glucose 191 mg/dL (65-115); Lipase 81 U/L (13-60); Magnesium 1.3 mg/dL (1.7-2.3); Osmolality Calculated 301 mOsm/kg (285-295); Total Bilirubin 0.3 mg/dL (0.15-1.2); Total Protein 5.4 g/dL (6.6-8.7)
[2021-10-05 16:56] LABS: Potassium 3.3 mmol/L (3.5-5.1)
[2021-10-05 16:57] LABS: Anion Gap 27.3 (5-19); Chloride 91 mmol/L (98-107); Sodium 132 mmol/L (136-145)
[2021-10-05 17:07] LABS: Lactic Sepsis W/Reflex 5.4 mmol/L (0.5-2.2)
[2021-10-05 17:20] LABS: Troponin(5th) Baseline 262 ng/L (0-15)
--- NOTE | 2021-10-05 17:22 | ECG_ITS ---
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 Measurements Intervals [place] Rate: 125 P: RI: QRS: 13 QRSD: 98 T: -21 QT: 334 QTc: 483 Interpretive Statements ATRIAL FIBRILLATION WITH RAPID VENTRICULAR RESPONSE WITH ABERRANT CONDUCTION OR VENTRICULAR PREMATURE COMPLEXES NONSPECIFIC ST & T-WAVE ABNORMALITY ABNORMAL RHYTHM ECG Compared to ECG 06/09/2021 13:41:40 Ventricular premature complex(es) now present Aberrant conduction of supraventricular beat(s) now present T-wave abnormality now present ST (T wave) deviation no longer present Electronically Signed On 10-06-2021 0:12:42 [employer]OPMENT by Demi Gan M.D. [id number]
[2021-10-05] MEDS: sodium chloride 0.9% 500 ML 999 ML IV (17:55)
[2021-10-05] MEDS: cefTRIAXone 2,000 MG in sodium chloride 0.9% (plus) 50 ML 100 MG IV (18:00)
--- NOTE | 2021-10-05 18:05 | CTR_ITS ---
PROCEDURE INFORMATION: Exam: CT Chest Without Contrast; Diagnostic Exam date and time: 10/05/2021 6:05 PM Age: 66 years old Clinical indication: Fever; Prior surgery; Patient HX: Best images possible. PT does not follow instruction and could not hold arms up; Additional info: SOB, septic shock TECHNIQUE: Imaging protocol: Diagnostic computed tomography of the chest without contrast. Radiation optimization: All CT scans at this facility use at least one of these dose optimization techniques: automated exposure control; mA and/or kV adjustment per patient size (includes targeted exams where dose is matched to clinical indication); or iterative reconstruction. COMPARISON: CT chest abd pel w con* 10/02/2020 1:20 PM RADIATION DOSE METRICS: Total DLP (mGy-cm): 2924.26 FINDINGS: Lungs: 1.7 cm nodular consolidation in the right middle lobe with a 3.2 cm surrounding halo of ground-glass opacity. Small group of tree-in-bud opacities in the left upper lobe. The lungs are otherwise clear. Pleural spaces: Unremarkable. No pneumothorax. No pleural effusion. Heart: Cardiomegaly. Moderate coronary artery calcifications. Aorta: Unremarkable. No aortic aneurysm. Lymph nodes: Unremarkable. No enlarged lymph nodes. Bones/joints: Metal hardware in the proximal right humerus. Soft tissues: Unremarkable. PROCEDURE INFORMATION: Exam: CT Abdomen And Pelvis Without Contrast Exam date and time: 10/05/2021 6:05 PM Age: 66 years old Clinical indication: Fever; Prior surgery; Patient HX: Best images possible. PT does not follow instruction and could not hold arms up; Additional info: SOB, septic shock TECHNIQUE: Imaging protocol: Computed tomography of the abdomen and pelvis without contrast. Radiation optimization: All CT scans at this facility use at least one of these dose optimization techniques: automated exposure control; mA and/or kV adjustment per patient size (includes targeted exams where dose is matched to clinical indication); or iterative reconstruction. COMPARISON: CT chest abd pel w con* 10/02/2020 1:20 PM RADIATION DOSE METRICS: Total DLP (mGy-cm): 2924.26 FINDINGS: Tubes, catheters and devices: Peritoneal dialysis catheter in the anterior right pelvis. Liver: Normal. No mass. Gallbladder and bile ducts: Small stones in the gallbladder. No visible wall thickening. The bile ducts are normal. Pancreas: Normal. No ductal dilation. Spleen: Splenomegaly measuring 15.1 cm. Adrenal glands: Normal. No mass. Kidneys and ureters: Atrophic kidneys. No calculus or hydronephrosis. Stomach and bowel: The stomach, small bowel, and colon appear unremarkable. Evaluation is limited due to significant motion artifact throughout the bowel. Appendix: The appendix is not visualized. No secondary signs of appendicitis. Intraperitoneal space: Mild-moderate ascites in the abdomen and pelvis. No free air. Vasculature: Arterial calcifications. No aneurysm. Lymph nodes: Unremarkable. No enlarged lymph nodes. Urinary bladder: The urinary bladder is decompressed with mild wall thickening. Reproductive: Unremarkable as visualized. Bones/joints: Chronic left L5 pars fracture. No acute fracture. Soft tissues: Mild body wall edema. CT/CT chest abd pel wo con IMPRESSION: 1. Nodular consolidation in the right middle lobe with surrounding ground-glass opacity. This is most likely pneumonia. CT follow-up in 2-3 months is recommended to document resolution. 2. Small group of tree-in-bud opacities in the left upper lobe most likely represents endobronchial infection. Attention at CT follow-up. IMPRESSION: 1. No acute abnormality identified in the abdomen or pelvis. 2. Splenomegaly. 3. Mild-moderate ascites. 4. Cholelithiasis. 5. Evaluation of the mid abdomen and bowel is limited due to significant motion artifact.
[2021-10-05 18:11] LABS: ABG PCO2 27.3 mmHg (35-45); ABG PH Result 7.44 (7.35-7.45); Alveolar-Arterial Oxygen Gradi 6.1 mmHg (5-10); Arterial Blood Gas Hematocrit 34.8 % (42-52); Base Excess ABG -4.3 mmol/L (-2.0-2.0); Blood Gas Allen Test Pos; Blood Gas Operator Identificat CAK; Blood Gas Sample Site Brachial, right; Blood Gas Sample Type Arterial; Carboxyhemoglobin 0.5 %THgb (0.4-20.1); HCO3 ABG 18.7 mmol/L (22-26); HGB O2 Sat 92.2 % (95-100); Ionized Calcium Level - ABG 1.1 mmol/L (1.1-1.4); Methemoglobin 1.1 % (0.4-1.5); Oxygen Device ROOM AIR; Oxygen Saturation ABG 93.7; PO2 ABG 69.6 mmHg (80.0-100.0); Potassium Level - ABG 3.2 mmol/L (3.5-5.0); Total Hemoglobin 11.4 g/dL (14-18)
[2021-10-05 18:16] LABS: Reflex Lactate Order REFLEX LACTIC ORDERD
[2021-10-05 18:16] LABS: Add Urine Microscopic? YES; Bilirubin Urine 1+ (Negative); Blood Urine 2+ (Negative); Glucose Urine UA 1+ (Normal); Ketones Urine Negative (Negative); Leukocyte Esterase Urine Negative (Negative); Nitrate Urine Negative (Negative); Protein Urine 2+ (Negative); Specific Gravity, Urine 1.015 (1.005-1.030); Urine Appearance Clear (CLEAR); Urine Color Yellow (Yellow); Urobilinogen Urine Norm (Negative); pH Urine 5 (5-7)
--- NOTE | 2021-10-05 18:20 | P.HP_ITS ---
Providers/Chief Complaint Primary Care Provider: Frankie Woodall DPM Chief Complaint: AFIB W/RVR/ LOW HGB History of Present Illness History taken through conversation with the patient though very limited, chart review and conversation with over the phone. Levi Bonilla is a 66 year old male with mutliple comorbidities including CKD on PD, severe PAD s/p multiple attempted peripheral vascular interventions, peripheral neuropathy, HTN, DM, multiple infections with Enterococcus VRE, MRSA in the past leading to osteomyelitis of right foot post transmetatarsal amputation, history of septic thrombophlebitis/DVT secondary to PICC line placement leading to Pseudomonas bacteremia who follows up with ID physician at [facility]. Have a PICC line in place. Has been getting IV imipenem at home with last dose around 3 weeks ago, on oral linezolid currently he was brought to the ER today by his because of feeling short of breath at home. As per his patient has been having recurrent chills, night sweats for last 1 week to 10 days along with shortness of breath which has been getting worse for last 3 to 4 days. Patient did check rapid Covid home test which was negative. Denies having any nausea, vomiting, diarrhea, fever at home, dizziness, chest pain. Patient did have a fever of 103.1 Fahrenheit in the ER. In the ER patient was also found to be in atrial fibrillation with rapid ventricular response for which he brought IV Cardizem after which he had blood pressures in 70 systolic. On examination patient is sitting up in bed complaining of shortness of breath, staring on the floor, awake and alert x3, pale with heart rate of 103, saturating 96% on room air with blood pressure of 77 systolic. During evaluation patient has a repeat blood pressure check which is 100 systolic. Blood work done today shows a hemoglobin of 6.8, white count 10.5, platelet count of 87, ABG showing a PCO2 27, PO2 of 69.6, sodium of 132, potassium of 3.3, creatinine of 9.2, BUN of 73, lactate of 5.4, magnesium of 1.3, BNP of 23,000, baseline troponin of 262, lipase of 81 Review of Systems General: Reports: 10 or more systems reviewed and unremarkable except in HPI and below Const: Denies: fever(s), chills, body aches, change in appetite, change in weight, malaise, night sweats, diaphoresis, change in sleep pattern, daytime sleepiness or snoring Eyes: Denies: change in vision, blurry vision, photophobia, eye discomfort or eye discharge ENMT: Denies: throat pain, enlarged tonsils, hoarseness, mouth pain, oral sores, dry mouth, tinnitus, nasal congestion or post nasal drip Card: Denies: chest pain, palpitations, irregular heart rhythm, edema, swelling of feet/ankles, lightheadedness, syncope, pre-syncope, dyspnea on exertion, orthopnea, leg pain with exertion or acrocyanosis Resp: Denies: dyspnea, productive cough, non-productive cough, wheezing, stridor, pain on inspiration, change in phlegm color, hemoptysis or chest congestion GI: Denies: abdominal pain, nausea, vomiting, hematemesis, coffee ground emesis, dysphagia, heartburn, diarrhea, constipation, bloating, GI cramping, change in bowel habits, pain on defecation, hematochezia or melena : Denies: flank pain, difficulty urinating, dysuria, urinary frequency, urinary urgency, urinary hesitancy, urinary dribbling, difficulty starting urination, change in urine stream, nocturia or hematuria Musc: Denies: neck pain, back pain, extremity pain, joint pain, joint swelling, joint redness, joint stiffness or limited range of motion Neuro: Denies: headache(s), numbness in extremities, weakness in extremities, sensory changes, lack of coordination, difficulty walking, frequent falls, dizziness, vertigo, confusion, Slurred speech present, difficulty communicating thoughts or seizure-like activity Psych: Denies: anxiety, depression, mood swings, panic attacks, hopelessness or irritability Endo: Denies: polyuria, polydipsia, tired all the time, cold intolerance, excessive sweating, flushing or heat intolerance Edmundo/Lymph: Denies: easy bruising or easy bleeding All/Imm: Denies: tongue swelling, facial swelling or acute wheezing Medications/Allergies Home Medications Medication Instructions Recorded Confirmed Last Taken Type allopurinol 300 mg tablet 300 mg PO QAM 08/11/20 10/05/21 06/09/21 07:30 History clonidine HCl 0.1 mg tablet 0.1 mg PO BID 08/11/20 10/05/21 06/09/21 07:30 History cyclobenzaprine 10 mg tablet 5 mg PO Q8H PRN 08/11/20 10/05/21 09/26/20 History ergocalciferol (vitamin D2) 1,250 1,250 mcg PO Q7D 08/11/20 10/05/21 06/08/21 History mcg (50,000 unit) capsule pantoprazole 40 mg tablet,delayed 40 mg PO QAM 08/11/20 10/05/21 06/09/21 07:30 History release paricalcitol 1 mcg capsule 1 mcg PO DAILY 08/11/20 10/05/21 06/09/21 07:30 History (Zemplar) torsemide 100 mg tablet 100 mg PO QAM 08/11/20 10/05/21 06/09/21 07:30 History polysaccharide iron complex 150 mg 150 mg PO BID 09/27/20 10/05/21 06/09/21 07:30 History iron capsule (Ferrex) amlodipine 10 mg tablet 10 mg PO BEDTIME tab 10/14/20 10/05/21 06/08/21 History ferric citrate 210 mg iron tablet 630 mg PO TIDWM 11/25/20 10/05/21 06/08/21 History (Auryxia) glipizide 5 mg tablet 5 mg PO QAM 11/26/20 10/05/21 06/09/21 07:30 History Renal Factor Plus 1 tab PO DAILY 06/09/21 10/05/21 Unknown History aspirin 81 mg tablet,delayed 81 mg PO BEDTIME 06/09/21 10/05/21 06/08/21 History release levothyroxine 175 mcg tablet 175 mcg PO QAM 06/09/21 10/05/21 06/09/21 History omega 7-fci-dey-fish oil 1,200 mg 1 cap PO BID #0 06/09/21 10/05/21 06/09/21 07:30 History (144 mg-216 mg) capsule (Fish Oil) sennosides 8.6 mg-docusate sodium 1 tab-cap PO DAILY #10 cap 06/15/21 10/05/21 Unknown Rx 50 mg capsule (Senna Plus) atorvastatin 20 mg tablet 20 mg PO DAILY 07/07/21 10/05/21 Unknown History linezolid 600 mg tablet 600 mg PO BID 14 Days #28 tab 09/23/21 10/05/21 Unknown Rx imipramine HCl 10 mg tablet 10 mg PO DAILY 10/05/21 10/05/21 Unknown History metoprolol tartrate 100 mg tablet 100 mg PO BID 10/05/21 10/05/21 Unknown History Allergies Allergy/AdvReac Type Severity Reaction Status Date / Time No Known Allergies Allergy Verified 10/05/21 15:02 PFSH Acute PFSH: Medical History (Updated 10/05/21 @ 18:23 by Kory Sosa MD) Anemia Arteriovenous fistula of left upper extremity on peritoneal dialysis, not being used Atrial fibrillation, chronic Charcot's arthropathy 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 Critical limb ischemia with history of revascularization of same extremity (11/2020) Dehiscence of amputation stump Diabetic neuropathy DM type 2 (diabetes mellitus, type 2) End stage renal disease Gout Hammertoe Hx of blood clots Hypertension Hypothyroidism Morbid obesity Needs peripherally inserted central catheter (PICC) Non-pressure chronic ulcer of other part of right foot with necrosis of bone Non-pressure chronic ulcer of other part of right foot with necrosis of muscle Osteomyelitis (08/2020) right foot, MSSA and Group C strep Peripheral arterial disease Peripheral vascular disease severe Septic thrombophlebitis of upper extremities (07/06/21) related to PICC line Septicemia, Pseudomonas (09/2020) Surgical History (Updated 10/05/21 @ 18:22 by Kory Sosa MD) 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 Woodall Peritoneal dialysis catheter in place Presence of Watchman left atrial appendage closure device S/P PICC central line placement with subsequent removal due to thrombophlebitis and RIJ DVT Family History Other Cancer Family history non-contributory Social History Alcohol intake: former Former alcohol use details: use to drink occassionally, none in years Lives independently: Yes Housing: House Vitals/I&O/Wt Last Vital Signs Temp 103.1 F H 10/05/21 15:02 Resp 24 H 10/05/21 15:23 BP 105/74 10/05/21 15:23 Pulse Ox 96 10/05/21 15:23 Weight last 48 hrs Weight 141.521 kg Data : 10/06/21 05:56 10/06/21 05:56 Micro: Microbiology 10/05/21 15:41 Blood Culture - Preliminary Blood SPECIMEN COLLECTED 10/05/21 15:41 Blood Culture - Preliminary Blood SPECIMEN COLLECTED A&P Assessment and plan (1) Sepsis: Status: Acute (2) Anemia: Status: Acute (3) Shortness of breath: Status: Acute (4) S/P PICC central line placement: Status: Acute (5) ESRD (end stage renal disease): Status: Acute (6) Peritoneal dialysis catheter in place: Status: Acute (7) COVID-19: Status: Suspected (8) DM type 2 (diabetes mellitus, type 2): Status: Acute Qualifiers: Diabetes mellitus complication detail: with polyneuropathy Diabetes mellitus complication status: with neurologic complications Diabetes mellitus long-term insulin use: without termite exterminator helper use Qualified Code(s): E11.42 - Type 2 diabetes mellitus with diabetic polyneuropathy (9) Hypertension: Status: Acute Qualifiers: Hypertension type: essential hypertension Qualified Code(s): I10 - Ess ential (primary) hypertension Plan Sepsis: Criteria met with tachycardia, elevated lactate, leukocytosis, fever. Most likely secondary to infection from possible pneumonia versus central line related infection versus PD peritonitis versus possible COVID-19. Check blood culture, lactate level, urinalysis, urine culture, procalcitonin, flu swab, COVID-19 PCR, urine Legionella, bacterial antigen, peritoneal fluid studies and Gram culture to rule out PD peritonitis, CT chest abdomen pelvis without contrast, D-dimer. Patient has a history of Pseudomonas bacteremia, recurrent infection with VRE Enterococcus. As per the old culture sensitivities for now cover with linezolid 600 mg IV twice daily, imipenem, Levaquin as per creatinine clearance. Keep mean artery pressure over 65, saturation over 88%. If needed can start on Levophed. Anemia: No active sign of bleeding. Baseline hemoglobin 7.5-8. Currently 6.3 with low blood pressures. Check iron panel, vitamin B12, folate level. Transfuse 2 units of PRBC. Check stools for occult blood. Shortness of breath: Secondary to pneumonia versus COVID-19. Antibiotic as above. Sputum culture, rest of the studies as above. DuoNebs every 6 hour, desonide twice daily. Keep saturation over 88%. End-stage renal disease on peritoneal dialysis: Nephrology consultation. Continue with peritoneal dialysis. Monitor BMP daily. Type 2 diabetes mellitus: Check HbA1c. Insulin sliding scale. Hypertension: Goal blood pressure less than 140/90 mmHg with mean over 65. Currently low blood pressures. Hold off on antihypertensives. Atrial fibrillation with rapid ventricular response: No known past medical history. Blood pressure soft for now. Does take metoprolol at home. If has recurrent episodes will start on amiodarone drip. Currently will monitor blood pressures and start amiodarone versus metoprolol accordingly. CODE STATUS: Full code. NPO. Heparin for DVT prophylaxis. Protonix for PUD prophylaxis. Admit to ICU. Attestations Medical Necessity Statement*: Admission for more than 2 midnights for management of severe sepsis, possible PICC line infection, shortness of breath, stage renal disease on peritoneal dialysis Time Spent in Patient Care: The high probability of a clinically significant, sudden or life threatening deterioration of the patient's [cardiac, renal, ID system(s) required my full and direct attention, intervention and personal management. The critical care time is as shown. This time is in addition to time spent performing any reported procedures but includes the following: [x] Data and vital sign review and interpretation [x] Patient assessment, examination and intervention [x] Documentation [x] Medication orders and management Critical Care Time: Critical Care Time (min): 90 Coding Level of Care Code Acute Research Interviewer for [facility] Fwd Diagnoses Sepsis A41.9 Anemia D64.9 COVID-19 U07.1 Shortness of breath R06.02 DM type 2 (diabetes mellitus, type 2) E11.42 Diabetes mellitus complication detail: with polyneuropathy Diabetes mellitus complication status: with neurologic complications Diabetes mellitus termite exterminator helper insulin use: without long-term use Hypertension I10 Hypertension type: essential hypertension S/P PICC central line placement Z95.828 ESRD (end stage renal disease) N18.6 Peritoneal dialysis catheter in place Z99.2
[2021-10-05 18:22] LABS: Add Urine Culture? No; Bacteria Urine TRACE /hpf; Coarse Granular Casts Urine 0-4 /lpf; RBC Urine 0-4 /hpf (0-2); Squamous Epithelial Cell Urine 0-4 /hpf (0-5)
[2021-10-05 18:26] LABS: Iron 165 ug/dL (59-158)
[2021-10-05 18:29] LABS: Percent Saturation 73.9 % (20-50); Total Iron Binding Capacity 223 mcg/dl; Unsaturated Iron Binding 58 ug/dL (112-347)
[2021-10-05 18:33] LABS: Troponin 5 2HR 192.6 ng/L (0-15)
--- NOTE | 2021-10-05 19:19 | P.CONIM_ITS ---
Providers/Reason For Consult Consulting Physician/Specialty*: rod jones md telenephrology Reason for Consult*: ESRD Requesting Physician: DR Luana Sosa Primary Care Provider: Frankie Woodall DPM History of Present Illness History of Present Illness Levi Bonilla is a 66 year old male with ESRD on CCPD, PAD s/p Rt TMA, follows w/ podiatry Dr. Woodall, HTN, DM, multiple infections with Enterococcus VRE, MRSA in the past leading to osteomyelitis of right foot post transmetatarsal amputation, history of septic thrombophlebitis/DVT secondary to PICC line placement leading to Pseudomonas bacteremia who follows up with ID physician at [facility].? His last abx were IV imipenem -completed 3 weeks ago. He remains on oral linezolid . PT admitted today w/ fevers, chills, night sweats. In the ER patient was also found to have temp 103 F, atrial fibrillation with rapid ventricular response for which he brought IV Cardizem after which he had blood pressures in 70 systolic. Pt is sob. renal called for ESRD / PD care. Review of Systems Narrative: weak, fevers, chills, nausea, vomiting, leg pains. denies cough. + sob, palps, no abd pain. PD fluid is clear, legs are swollen Medications/Allergies Home Medications Medication Instructions Recorded Confirmed Last Taken Type allopurinol 300 mg tablet 300 mg PO QAM 08/11/20 10/05/21 06/09/21 07:30 History clonidine HCl 0.1 mg tablet 0.1 mg PO BID 08/11/20 10/05/21 06/09/21 07:30 History cyclobenzaprine 10 mg tablet 5 mg PO Q8H PRN 08/11/20 10/05/21 09/26/20 History ergocalciferol (vitamin D2) 1,250 1,250 mcg PO Q7D 08/11/20 10/05/21 06/08/21 History mcg (50,000 unit) capsule pantoprazole 40 mg tablet,delayed 40 mg PO QAM 08/11/20 10/05/21 06/09/21 07:30 History release paricalcitol 1 mcg capsule 1 mcg PO DAILY 08/11/20 10/05/21 06/09/21 07:30 History (Zemplar) torsemide 100 mg tablet 100 mg PO QAM 08/11/20 10/05/21 06/09/21 07:30 History polysaccharide iron complex 150 mg 150 mg PO BID 09/27/20 10/05/21 06/09/21 07:30 History iron capsule (Ferrex) amlodipine 10 mg tablet 10 mg PO BEDTIME tab 10/14/20 10/05/21 06/08/21 History ferric citrate 210 mg iron tablet 630 mg PO TIDWM 11/25/20 10/05/21 06/08/21 History (Auryxia) glipizide 5 mg tablet 5 mg PO QAM 11/26/20 10/05/21 06/09/21 07:30 History Renal Factor Plus 1 tab PO DAILY 06/09/21 10/05/21 Unknown History aspirin 81 mg tablet,delayed 81 mg PO BEDTIME 06/09/21 10/05/21 06/08/21 History release levothyroxine 175 mcg tablet 175 mcg PO QAM 06/09/21 10/05/21 06/09/21 History omega 8-ftd-bbb-fish oil 1,200 mg 1 cap PO BID #0 06/09/21 10/05/21 06/09/21 07:30 History (144 mg-216 mg) capsule (Fish Oil) sennosides 8.6 mg-docusate sodium 1 tab-cap PO DAILY #10 cap 06/15/21 10/05/21 Unknown Rx 50 mg capsule (Senna Plus) atorvastatin 20 mg tablet 20 mg PO DAILY 07/07/21 10/05/21 Unknown History linezolid 600 mg tablet 600 mg PO BID 14 Days #28 tab 09/23/21 10/05/21 Unknown Rx imipramine HCl 10 mg tablet 10 mg PO DAILY 10/05/21 10/05/21 Unknown History metoprolol tartrate 100 mg tablet 100 mg PO BID 10/05/21 10/05/21 Unknown History Allergies Allergy/AdvReac Type Severity Reaction Status Date / Time No Known Allergies Allergy Verified 10/05/21 15:02 PFSH Acute PFSH: Medical History (Updated 10/05/21 @ 18:23 by Kory Sosa MD) Anemia Arteriovenous fistula of left upper extremity on peritoneal dialysis, not being used Atrial fibrillation, chronic Charcot's arthropathy 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 Critical limb ischemia with history of revascularization of same extremity (11/2020) Dehiscence of amputation stump Diabetic neuropathy DM type 2 (diabetes mellitus, type 2) End stage renal disease Gout Hammertoe Hx of blood clots Hypertension Hypothyroidism Morbid obesity Needs peripherally inserted central catheter (PICC) Non-pressure chronic ulcer of other part of right foot with necrosis of bone Non-pressure chronic ulcer of other part of right foot with necrosis of muscle Osteomyelitis (08/2020) right foot, MSSA and Group C strep Peripheral arterial disease Peripheral vascular disease severe Septic thrombophlebitis of upper extremities (07/06/21) related to PICC line Septicemia, Pseudomonas (09/2020) Surgical History (Updated 10/05/21 @ 18:22 by Kory Sosa MD) 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 Woodall Peritoneal dialysis catheter in place Presence of Watchman left atrial appendage closure device S/P PICC central line placement with subsequent removal due to thrombophlebitis and RIJ DVT Family History Other Cancer Family history non-contributory Social History Alcohol intake: former Former alcohol use details: use to drink occassionally, none in years Lives independently: Yes Housing: House Vitals/I&O/Wt Last Vital Signs Temp 99.8 F H 10/05/21 18:52 Pulse 126 H 10/05/21 19:13 Resp 18 10/05/21 19:13 BP 128/83 10/05/21 19:13 Pulse Ox 97 10/05/21 19:13 10/05/21 10/05/21 10/05/21 06:59 14:59 22:59 Intake Total 0 / 0 Balance 0 / 0 Weight last 48 hrs Weight 141.521 kg Physical Exam Narrative: EXAM NARRATIVE: obese, sob, tachycardic heent- nc/at, eomi, anicteric neck no jvp lungs clear heart irreg, irreg, +RUBENS abd soft, nt, nd, + bs, +PD catheter ext edema, rt TMA bandaged neuro- a,a,o x 2-3 LUE AVF Data : 10/05/21 15:41 10/05/21 15:41 Micro: Microbiology 10/05/21 15:41 Blood Culture - Preliminary Blood SPECIMEN COLLECTED 10/05/21 15:41 Blood Culture - Preliminary Blood SPECIMEN COLLECTED Other data: Lungs: 1.7 cm nodular consolidation in the right middle lobe with a 3.2 cm surrounding halo of ground-glass opacity. Small group of tree-in-bud opacities in the left upper lobe. The lungs are otherwise clear. A&P Assessment and plan (1) ESRD (end stage renal disease): 66? yr old man 1. sepsis eval- send PD fluids for cell count and cx CT lungs c/w pna -monitor legs and possibility of PICC line bacteremia -renal dose abx for ESRD on PD 2. ESRD-CCPD at home- Home prescription is CCPD, 8 hours on the cycler, three exchanges of 8 L, 2.5% and 1 day exchange of icodextrin. In hospital we will do CAPD. -cont CAPD 4 exchanges a day w/ 1.25% gluc -has a LUE AVF-? was on HD in the past -phos binder- check pth and phos 3. a fib w/ RVR per medicine -replace k and mag 4. anemia- high iron sat of 74% -getting blood - avoid iv iron w/ active infection and high iron sat -EPO 5. thrombocytopenia- improving- plts were 30 1 week ago on 09/26/21 6. DM control 7. acid- base status- resp alkalosis and met acidosis- balanced -lactate 5.4- monitor w/ abx and PD 8. mild hyponatremia- monitor w/ HD 9. bnp 02191- recent echo- nl ef 10. hypothyroidism on levothyroxine- check tsh 11. gout - check uric acid level c Patient seen and examined via telemedicine, with the assistance of the bedside RN 50 min spent in evaluation and mgmt of patient discussed w/ nurse and Dr. Jain in detail Status: Acute Plan see above Consult Attestations Medical Necessity Statement: sepsis, a fib w/ RVR, ESRD Time Spent in Patient Care: Greater than 35 minutes (>than 50% of time spent in counselling and/or direct pt care on unit) . 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
[2021-10-05] MEDS: levoFLOXacin 750 mg Tablet PO (20:04)
[2021-10-05] MEDS: potassium chloride ER 20 mEq Tablet 40 MEQ PO (20:05)
[2021-10-05 20:06] LABS: SARS Covid-2 Antigen Negative (Negative)
[2021-10-05] MEDS: ipratropium-albuterol 3 mL Neb INHALATION (21:02)
--- NOTE | 2021-10-05 21:22 | ECG_ITS ---
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 Measurements Intervals [place] Rate: 96 P: OK: QRS: 48 QRSD: 102 T: 24 QT: 380 QTc: 480 Interpretive Statements ATRIAL FIBRILLATION NONSPECIFIC ST & T-WAVE ABNORMALITY ABNORMAL RHYTHM ECG Compared to ECG 10/05/2021 15:57:49 No significant changes Electronically Signed On 10-06-2021 0:13:55 HOTEL STAFF MEMBER by Demi Gan M.D. [id number]
[2021-10-05 21:51] LABS: Troponin 5 6HR Delta -17.4 ng/L (0-12)
[2021-10-05 21:53] LABS: Lactic Acid level (Lactate) 6.3 mmol/L (0.5-2.2); Troponin 5 6HR 244.6 ng/L (0-15)
[2021-10-05] MEDS: linezolid premix 600 MG/300 ML PREMIX 300 MG IV (22:04)
[2021-10-05 22:17] LABS: D Dimer 5.12 ug/mIFEU (0-0.59)
--- NOTE | 2021-10-05 22:43 | PC.NURSE ---
Pt requesting medication for anxiety. Pt states he takes Hydroxyzine 10 mg @ [address]. Dr Martin notified, order given.
[2021-10-05] MEDS: aspirin 81 mg EC Tablet PO (22:49)
[2021-10-05] MEDS: heparin 5,000 unit/mL INJ 1 mL 5000 UNIT SUBCUT (22:56)
[2021-10-05 23:13] LABS: Vitamin B12 722 pg/mL (232-1245)
[2021-10-05] MEDS: pantoprazole 40 mg SDV IVP (23:24)
[2021-10-05] MEDS: Dianeal low Ca w/1.5% dex 2,000 mL Bag 2000 ML INTRAPERIT (23:32)
[2021-10-05 23:45] LABS: Folate Level > 20.0 ng/mL (4.5-32.2)
[2021-10-06] VITALS (28 sets, daily range): BP systolic 85–138; BP diastolic 55–98; PULSE 66–103; RESP 15–30; TEMP 36.3–37; O2SAT 94–100
[2021-10-06 00:18] LABS: Polynuclear # Cells, Perit 0.008 10^3/uL
[2021-10-06 00:20] LABS: Adenovirus Not Detected (NOT DETECT); Chlamydia Pneumoniae Not Detected (NOT DETECT); Coronavirus 229E,HKU1,NL63,OC4 Not Detected (NOT DETECT); Human Metapneumovirus Not Detected (NOT DETECT); Human Rhinovirus/Enterovirus Not Detected (NOT DETECT); Influenza A Not Detected (NOT DETECT); Influenza A H1 Not Detected (NOT DETECT); Influenza A H1-2009 Not Detected (NOT DETECT); Influenza A H3 Not Detected (NOT DETECT); Influenza B Not Detected (NOT DETECT); Mycoplasma Pneumoniae Not Detected (NOT DETECT); Parainfluenza Virus Type 1 Not Detected (NOT DETECT); Parainfluenza Virus Type 2 Not Detected (NOT DETECT); Parainfluenza Virus Type 3 Not Detected (NOT DETECT); Parainfluenza Virus Type 4 Not Detected (NOT DETECT); Respiratory Syncytial Virus A Not Detected (NOT DETECT); Respiratory Syncytial Virus B Not Detected (NOT DETECT); Results from Genmark; SARS-COV-2 Not Detected (NOT DETECT)
[2021-10-06 00:20] LABS: Appearance, Peritoneal Fluid Clear (Clear); Color, Peritoneal Fluid Pale Yellow (Pale Yellow)
[2021-10-06 00:22] LABS: RBC Pertioneal Fluid 1 10^3/uL; WBC Peritoneal Fluid 28 /uL
[2021-10-06 00:45] LABS: Albumin Peritoneal Fluid 0.2 g/dL
[2021-10-06] MEDS: ipratropium-albuterol 3 mL Neb INHALATION ×4 (03:22→20:33)
[2021-10-06 06:16] LABS: Basophils # 0.1 10^3/uL (0.0-0.1); Basophils % 0.5 %; Eosinophils % 0.2 %; Hematocrit 22.6 % (42.0-52.0); Hemoglobin 7.6 g/dL (11.7-16.6); Lymphocytes % 5.8 %; Mean Corpuscular HGB Conc 33.6 g/dL (30.0-36.0); Mean Corpuscular Hemoglobin 32.9 pg (28.0-34.0); Mean Corpuscular Volume 97.8 fl (80-94); Mean Platelet Volume 11.2 fL (7.4-10.4); Monocytes # 1.4 10^3/uL (0.2-0.9); Monocytes % 8.1 %; Neutrophils # 14.75 10^3/uL (1.8-7.7); Neutrophils % 84.9 %; Nucleated Red Blood Cells % 0 %; Platelet Count 89 10^3/cmm (130-400); Red Blood Count 2.31 10^6/uL (4.1-5.3); Red Cell Distribution Width 18.1 % (12.1-15.1); White Blood Count 17.4 10^3/uL (4.0-10.0)
[2021-10-06] MEDS: levothyroxine 175 mcg Tablet PO (06:19)
[2021-10-06] MEDS: linezolid premix 600 MG/300 ML PREMIX 300 MG IV ×2 (06:19→18:30)
[2021-10-06] MEDS: Dianeal low Ca w/1.5% dex 2,000 mL Bag 2000 ML INTRAPERIT ×2 (06:25→18:30)
[2021-10-06 06:42] LABS: Thyroid Stimulating Hormone 2.21 uIU/mL (0.27-4.20)
--- NOTE | 2021-10-06 06:49 | PM.PN ---
Subjective Subjective: Interval history: feels better. s/p 2 u prbc. mild edema. hr controlled, + palps. no sob Medications: Reviewed: Yes Medication Review Details: Current Medications Acetaminophen (Acetaminophen 325 Mg Tablet) 650 mg PO Q6H PRN PRN Reason: Mild/Mod Pain Or Temp >/= 101 Albuterol/Ipratropium (Ipratropium-Albuterol 3 Ml Neb) 3 ml INHALATION Q6H.RESPIRATORY MARIANELA Last Admin: 10/06/21 03:22 Dose: 3 ml Documented by: Aspirin (Aspirin 81 Mg Ec Tablet) 81 mg PO BEDTIME MARIANELA Last Admin: 10/05/21 22:49 Dose: 81 mg Documented by: Atorvastatin Calcium (Atorvastatin 40 Mg Tablet) 20 mg PO DAILY MARIANELA Bisacodyl (Bisacodyl 5 Mg Tablet) 10 mg PO DAILY PRN; Protocol PRN Reason: Constipation (see protocol) Calcium Carbonate (Calcium Carbonate 500 Mg Chew Tablet) 1,000 mg PO Q4H PRN PRN Reason: DYSPEPSI Ergocalciferol (Ergocalciferol (Vitamin D2) 50,000 Unit Capsule) 50,000 unit PO Q7D MARIANELA Heparin Sodium (Porcine) (Heparin 5,000 Unit/Ml Inj 1 Ml) 5,000 unit SUBCUT Q12H MARIANELA Last Admin: 10/05/21 22:56 Dose: 5,000 unit Documented by: Hydroxyzine HCl (Hydroxyzine 10 Mg Tablet) 10 mg PO PRN PRN PRN Reason: ANXIETY Last Admin: 10/05/21 23:24 Dose: 10 mg Documented by: Linezolid (Zyvox Premix) 600 mg in 300 mls @ 300 mls/hr IV Q12H MARIANELA; Protocol Last Admin: 10/06/21 06:19 Dose: 300 mls/hr Documented by: Imipenem/Cilastatin Sodium 250 (mg/ Sodium Chloride) 100 mls @ 200 mls/hr IV Q12H MARIANELA; Protocol Last Infusion: 10/05/21 22:13 Dose: Infused Documented by: Levofloxacin (Levofloxacin 500 Mg Tablet) 500 mg PO Q48H MARIANELA; Protocol Levothyroxine Sodium (Levothyroxine 175 Mcg Tablet) 175 mcg PO QAM MARIANELA Last Admin: 10/06/21 06:19 Dose: 175 mcg Documented by: Multivitamins (B-Eusrglr-Fpwfohz C Tablet) 1 each PO DAILY [facility] Non-Formulary Medication (Imipramine Hcl) 10 mg PO BEDTIME [facility] Non-Formulary Medication (Paricalcitol [Zemplar]) 1 mcg PO DAILY [facility] Ondansetron HCl (Ondansetron 2 Mg/Ml Sdv 2 Ml) 4 mg IVP Q8H PRN PRN Reason: vomiting, or N/V if npo Oxycodone HCl (Oxycodone 5 Mg Ir Tab/Cap) 5 mg PO Q8H PRN PRN Reason: pain Pantoprazole Sodium (Pantoprazole 40 Mg Sdv) 40 mg IVP Q12H [facility] Last Admin: 10/05/21 23:24 Dose: 40 mg Documented by: Peritoneal Dialysis Solution (Dianeal Low Ca W/1.5% Dex 2,000 Ml Bag) 2,000 ml INTRAPERIT Q6H [facility] Last Admin: 10/06/21 06:25 Dose: 2,000 ml Documented by: Vitals/I&O/Wt Last Vital Signs Temp 97.6 F 10/06/21 06:25 Pulse 66 10/06/21 06:25 Resp 17 10/06/21 06:25 BP 114/80 10/06/21 06:25 Pulse Ox 98 10/06/21 06:25 10/05/21 10/05/21 10/06/21 14:59 22:59 06:59 Intake Total 900 / 900 3202 / 4102 Output Total 3250 / 3250 Balance 900 / 900 -48 / 852 Weight last 48 hrs Weight 141.521 kg Physical Exam Narrative: EXAM NARRATIVE: BP low obese, NARD sitting up in chair heent- nc/at, eomi, anicteric neck no jvp lungs rt sided upper crackles, left clear heart irreg, irreg, +RUBENS abd soft, nt, nd, + bs, +PD catheter ext edema, rt TMA bandaged neuro- a,a,o x 3 LUE AVF Data : 10/06/21 05:56 10/05/21 15:41 Micro: Microbiology 10/05/21 17:57 Legionella Urinary Antigen - Final Unknown Source 10/05/21 15:41 Blood Culture - Preliminary Blood SPECIMEN COLLECTED 10/05/21 15:41 Blood Culture - Preliminary Blood SPECIMEN COLLECTED A&P Assessment and plan (1) ESRD (end stage renal disease): 66? yr old man 1. sepsis eval- send PD fluids for cell count and cx CT lungs c/w pna -wbc u to 17 -monitor legs and possibility of PICC line bacteremia -renal dose abx for ESRD on PD -on primaxin, linezolid, levoquin. may need Vanco - f/u cx 1b. murmur, fevers- check echo 2. ESRD-CCPD at home- Home prescription is [facility], 8 hours on the cycler, three exchanges of 8 L, 2.5% and 1 day exchange of icodextrin. In hospital we will do CAPD. -cont CAPD 4 exchanges a day w/ 1.25% gluc -has a LUE AVF-? was on HD in the past -phos binder- check pth and phos 3. a fib- HR improved -monitor k and mag- replete as needed 4. anemia- high iron sat of 74% -s/p 2 u prbc - avoid iv iron w/ active infection and high iron sat -EPO 5. thrombocytopenia- improving- plts were 30 1 week ago on 09/26/21 6. DM control 7. acid- base status- resp alkalosis and met acidosis- balanced -lactate 6.3- monitor w/ abx and PD 8. mild hyponatremia- monitor w/ [place] 9. b[place] [id number]- recent echo- nl ef 10. hypothyroidism on levothyroxine- check tsh 11. gout - check uric acid level Patient seen and examined via telemedicine, with the assistance of the bedside RN 30 min spent in evaluation and mgmt of patient discussed w/ nurse Status: Acute Plan see above Attestations Medical Necessity Statement*: infection, hypotension, murmur, a fib, DM foot s/p TMA Time Spent in Patient Care: 16 - 35 minutes (>than 50% of time spent in counselling and/or direct pt care on unit). Coding Level of Care Code Acute Wool Hat Flanger for Chg Fwd Diagnoses ESRD (end stage renal disease) N18.6
[2021-10-06 06:52] LABS: 25 Hydroxy Vitamin D 38 ng/mL (30-100); Alanine Aminotransferase 11 U/L (0-41); Albumin Level 3.1 g/dL (3.5-5.2); Alkaline Phosphatase 97 IU/L (40-130); Anion Gap 26.4 (5-19); Aspartate Amino Transferase 14 U/L (0-40); Blood Urea Nitrogen 77 mg/dL (8-23); Carbon Dioxide 16 mmol/L (22-29); Chloride 89 mmol/L (98-107); Globulin 2.6 g/dL (1.3-4.6); Glomerular Filtration Rate 5.8 mL/min (90-130); Glucose 182 mg/dL (65-115); Magnesium 1.6 mg/dL (1.7-2.3); Osmolality Calculated 294 mOsm/kg (285-295); Phosphorus 5.7 mg/dL (2.5-4.5); Potassium 3.4 mmol/L (3.5-5.1); Sodium 128 mmol/L (136-145); Total Bilirubin 0.5 mg/dL (0.15-1.2); Total Protein 5.7 g/dL (6.6-8.7); Uric Acid 6.2 mg/dL (3.4-7.0)
[2021-10-06 07:23] LABS: Calcium 8.9 mg/dL (8.5-10.5)
[2021-10-06 07:48] LABS: Parathyroid Hormone 406.5 pg/mL (15-65)
--- NOTE | 2021-10-06 08:14 | PC.NURSE ---
PATIENT AND FOOT PIECE ASSEMBLER GIVEN UPDATES OVER THE PHONE.
[2021-10-06] MEDS: atorvastatin 40 mg Tablet 20 MG PO (08:40)
[2021-10-06] MEDS: potassium chloride ER 20 mEq Tablet 40 MEQ PO (08:40)
[2021-10-06] MEDS: calcitriol 0.25 mcg Capsule PO (08:40)
--- NOTE | 2021-10-06 09:17 | PM.CONSULT ---
Providers/Reason For Consult Consulting Physician/Specialty*: Frankie Woodall D.P.M. Reason for Consult*: Status post transmetatarsal mutation right foot with healing by secondary intention. Attending Physician: Kory Sosa MD Primary Care Provider: Frankie Woodall DPM History of Present Illness History of Present Illness Levi Bonilla is a 66 year old insulin-dependent diabetic male with end-stage renal failure presents to ED via EMS due to fevers and altered mental status. Patient has a PICC line at right subclavian, received 8 weeks of Primaxin managed by Dr.Haddow Marquita Milan he also has been on 600 mg twice daily oral linezolid. The PICC line was placed due to poor access, has a fistula on the left and history of septic joint on the right shoulder necessitating his current line. History of osteomyelitis of the right foot, status post transmetatarsal amputation. Review of Systems General: Reports: 10 or more systems reviewed and unremarkable except in HPI and below Const: Denies: fever(s) or chills Card: Denies: chest pain or palpitations Resp: Denies: productive cough GI: Denies: abdominal pain, nausea or vomiting : Denies: flank pain Musc: Reports: extremity swelling, joint pain, joint stiffness, limited range of motion and deformity Skin/Breast: Reports: sores, nail changes and change in hair; Denies: rash Neuro: Reports: numbness in extremities, sensory changes and difficulty walking Psych: Denies: suicidal ideation Edmundo/Lymph: Denies: easy bruising Medications/Allergies Home Medications Medication Instructions Recorded Confirmed Last Taken Type allopurinol 300 mg tablet 300 mg PO QAM 08/11/20 10/05/21 06/09/21 07:30 History clonidine HCl 0.1 mg tablet 0.1 mg PO BID 08/11/20 10/05/21 06/09/21 07:30 History cyclobenzaprine 10 mg tablet 5 mg PO Q8H PRN 08/11/20 10/05/21 09/26/20 History ergocalciferol (vitamin D2) 1,250 1,250 mcg PO Q7D 08/11/20 10/05/21 06/08/21 History mcg (50,000 unit) capsule pantoprazole 40 mg tablet,delayed 40 mg PO QAM 08/11/20 10/05/21 06/09/21 07:30 History release paricalcitol 1 mcg capsule 1 mcg PO DAILY 08/11/20 10/05/21 06/09/21 07:30 History (Zemplar) torsemide 100 mg tablet 100 mg PO QAM 08/11/20 10/05/21 06/09/21 07:30 History polysaccharide iron complex 150 mg 150 mg PO BID 09/27/20 10/05/21 06/09/21 07:30 History iron capsule (Ferrex) amlodipine 10 mg tablet 10 mg PO BEDTIME tab 10/14/20 10/05/21 06/08/21 History ferric citrate 210 mg iron tablet 630 mg PO TIDWM 11/25/20 10/05/21 06/08/21 History (Auryxia) glipizide 5 mg tablet 5 mg PO QAM 11/26/20 10/05/21 06/09/21 07:30 History Renal Factor Plus 1 tab PO DAILY 06/09/21 10/05/21 Unknown History aspirin 81 mg tablet,delayed 81 mg PO BEDTIME 06/09/21 10/05/21 06/08/21 History release levothyroxine 175 mcg tablet 175 mcg PO QAM 06/09/21 10/05/21 06/09/21 History omega 4-nnm-jwp-fish oil 1,200 mg 1 cap PO BID #0 06/09/21 10/05/21 06/09/21 07:30 History (144 mg-216 mg) capsule (Fish Oil) sennosides 8.6 mg-docusate sodium 1 tab-cap PO DAILY #10 cap 06/15/21 10/05/21 Unknown Rx 50 mg capsule (Senna Plus) atorvastatin 20 mg tablet 20 mg PO DAILY 07/07/21 10/05/21 Unknown History linezolid 600 mg tablet 600 mg PO BID 14 Days #28 tab 09/23/21 10/05/21 Unknown Rx imipramine HCl 10 mg tablet 10 mg PO DAILY 10/05/21 10/05/21 Unknown History metoprolol tartrate 100 mg tablet 100 mg PO BID 10/05/21 10/05/21 Unknown History Allergies Allergy/AdvReac Type Severity Reaction Status Date / Time No Known Allergies Allergy Verified 10/05/21 15:02 Current Medications Generic Name Dose Route Start Last Admin Trade Name Freq PRN Reason Stop Dose Admin Albuterol/Ipratropium 3 ml 10/05/21 21:00 10/06/21 08:43 Ipratropium-Albuterol 3 Ml Neb INHALATION 3 ml Q6H.RESPIRATORY MARIANELA Administration Aspirin 81 mg 10/05/21 21:00 10/05/21 22:49 Aspirin 81 Mg Ec Tablet PO 81 mg BEDTIME MARIANELA Administration Atorvastatin Calcium 20 mg 10/06/21 09:00 10/06/21 08:40 Atorvastatin 40 Mg Tablet PO 20 mg DAILY MARIANELA Administration Calcitriol 0.25 mcg 10/06/21 09:00 10/06/21 08:40 Calcitriol 0.25 Mcg Capsule PO 0.25 mcg DAILY MARIANELA Administration Heparin Sodium (Porcine) 5,000 unit 10/05/21 22:15 10/05/21 22:56 Heparin 5,000 Unit/Ml Inj 1 Ml SUBCUT 5,000 unit Q12H MARIANELA Administration Hydroxyzine HCl 10 mg 10/05/21 22:41 10/05/21 23:24 Hydroxyzine 10 Mg Tablet PO 10 mg PRN PRN Administration ANXIETY Linezolid 600 mg in 300 mls @ 300 mls/hr 10/05/21 18:20 10/06/21 07:33 Zyvox Premix IV Infused Q12H MARIANELA Infusion Protocol Imipenem/Cilastatin Sodium 250 100 mls @ 200 mls/hr 10/05/21 21:00 10/05/21 22:13 mg/ Sodium Chloride IV Infused Q12H MARIANELA Infusion Protocol Levothyroxine Sodium 175 mcg 10/06/21 06:00 10/06/21 06:19 Levothyroxine 175 Mcg Tablet PO 175 mcg QAM MARIANELA Administration Pantoprazole Sodium 40 mg 10/05/21 22:15 10/05/21 23:24 Pantoprazole 40 Mg Sdv IVP 40 mg Q12H MARIANELA Administration Peritoneal Dialysis Solution 2,000 ml 10/06/21 06:30 10/06/21 06:25 Dianeal Low Ca W/1.5% Dex 2,000 Ml Bag INTRAPERIT 2,000 ml Q6H MARIANELA Administration PFSH Acute PFSH: Medical History (Updated 10/06/21 @ 16:35 by Frankie Woodall DPM) Anemia Arteriovenous fistula of left upper extremity on peritoneal dialysis, not being used Atrial fibrillation, chronic Charcot's arthropathy 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 Critical limb ischemia with history of revascularization of same extremity (11/2020) Dehiscence of amputation stump Diabetic neuropathy DM type 2 (diabetes mellitus, type 2) End stage renal disease Gout Hammertoe Hx of blood clots Hypertension Hypothyroidism Morbid obesity Needs peripherally inserted central catheter (PICC) Non-pressure chronic ulcer of other part of right foot with necrosis of bone Non-pressure chronic ulcer of other part of right foot with necrosis of muscle Osteomyelitis (08/2020) right foot, MSSA and Group C strep Peripheral arterial disease Peripheral vascular disease severe Septic thrombophlebitis of upper extremities (07/06/21) related to PICC line Septicemia, Pseudomonas (09/2020) Surgical History (Updated 10/06/21 @ 16:35 by Frankie Woodall DPM) 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 Woodall Peritoneal dialysis catheter in place Presence of Watchman left atrial appendage closure device S/P PICC central line placement with subsequent removal due to thrombophlebitis and RIJ DVT Family History Other Cancer Family history non-contributory Social History Alcohol intake: former Former alcohol use details: use to drink occassionally, none in years Lives independently: Yes Housing: House Vitals/I&O/Wt Last Vital Signs Temp 98.3 F 10/06/21 08:30 Pulse 77 10/06/21 08:46 Resp 16 10/06/21 08:45 BP 118/96 10/06/21 08:30 Pulse Ox 99 10/06/21 08:45 10/05/21 10/06/21 10/06/21 22:59 06:59 14:59 Intake Total 900 / 900 3202 / 4102 3150 / 3150 Output Total 3250 / 3250 2154 / 2154 Balance 900 / 900 -48 / 852 996 / 996 Weight last 48 hrs Weight 312 lb Physical Exam Narrative: EXAM NARRATIVE: Patient is alert and oriented ?3 and in no acute distress.? The following is a focused right lower extremity exam. VASCULAR: Dorsalis pedis and posterior tibial arteries palpable +2.? Capillary refill time less than 3 seconds to the distal hallux bilaterally. Calf is supple and nontender proximally and distally.? Mild edema at the operative site consistent with postoperative course. NEUROLOGICAL: Protective sensation diminished. DERMATOLOGICAL: Significant interval of healing since last week. There is a small area centrally that has granular base measures 0.2 cm x 1.8 cm x 0.1 cm, no purulent drainage, no erythema, no warmth, no proximal lymphangitic streaking, no tunneling, undermining or macerated tissue. MUSCULOSKELETAL: Tenderness about the operative site consistent with postoperative course.? No pain with posterior calf squeeze.? Further musculoskeletal exam deferred due to postoperative state. Data : 10/06/21 05:56 10/06/21 05:56 Micro: Microbiology 10/05/21 17:57 Bacterial Antigens - Final Urine Kidney 10/05/21 17:57 Legionella Urinary Antigen - Final Unknown Source 10/05/21 15:41 Blood Culture - Preliminary Blood SPECIMEN COLLECTED 10/05/21 15:41 Blood Culture - Preliminary Blood SPECIMEN COLLECTED A&P Assessment and plan (1) DM type 2 (diabetes mellitus, type 2): Status: Acute Qualifiers: Diabetes mellitus complication detail: with polyneuropathy Diabetes mellitus complication status: with neurologic complications Diabetes mellitus half-way insulin use: without long term care administrator use Qualified Code(s): E11.42 - Type 2 diabetes mellitus with diabetic polyneuropathy (2) ESRD (end stage renal disease): Status: Acute (3) Status post transmetatarsal amputation of right foot: Status: Acute (4) History of osteomyelitis: Status: Acute Plan 66-year-old diabetic male admitted to the hospital service due to fevers and altered mental status. Met sepsis criteria has leukocytosis, tachycardia and fever. From a podiatry standpoint his amputation site is well-healing. His wound is measuring significantly smaller over the past 7 days and has near complete epithelialization. Last surgical debridement and cultures taken on the right foot was 07/08/2021. This was healed by secondary intention utilizing local wound care, wound VAC as well as parenteral antibiotics managed by infectious disease [facility] Dr. Hanley. Did 8 weeks of Primaxin through subclavian PICC line and oral linezolid which he is still taking, Primaxin was discontinued 2 weeks ago, his line PICC line remains in place. Has had [facility]. Would not rule out chronic osteomyelitis however I do not believe that there is an acute infection or acute osteomyelitis contributing to a systemic symptoms at this time. I will continue to follow for daily dressing changes, moving forward he is trending towards getting a diabetic shoe and toe filler so he can be ambulatory as his incision is all but healed. Coding Level of Care Code Acute Nursing Project Coordinator for g Fwd Diagnoses DM type 2 (diabetes mellitus, type 2) E11.42 Diabetes mellitus complication detail: with polyneuropathy Diabetes mellitus complication status: with neurologic complications Diabetes mellitus half-way insulin use: without half-way use ESRD (end stage renal disease) N18.6 Status post transmetatarsal amputation of right foot Z89.431 History of osteomyelitis Z87.39
[2021-10-06 09:46] LABS: Lactate (Lactic Acid level) 4.1 mmol/L (0.5-2.2)
--- NOTE | 2021-10-06 10:20 | PC.NURSE ---
RN CALLED ABOUT PATIENTS MEDS THAT ARE COMING FROM PHARMACY
--- NOTE | 2021-10-06 10:27 | PC.NURSE ---
PATIENT ON CONTINUOUS BEDSIDE CARDIAC, BP AND O2 MONITOR.
[2021-10-06] MEDS: heparin 5,000 unit/mL INJ 1 mL 5000 UNIT SUBCUT ×2 (10:59→21:47)
[2021-10-06] MEDS: pantoprazole 40 mg SDV IVP ×2 (10:59→21:46)
[2021-10-06] MEDS: b-complex-vitamin c Tablet 1 EACH PO (10:59)
--- NOTE | 2021-10-06 13:38 | PC.NURSE ---
RN CALLED PHARMACY FOR PATIENTS PERITONEAL DIALYSIS. PHARMACY IS SUPPOSED TO BE SENDING IT TO ER.
--- NOTE | 2021-10-06 13:44 | PM.PN ---
Subjective Subjective: Interval history: Today morning on examination patient laying comfortably in bed, AO x3, comfortable able to have complete conversation. Overnight has remained hemodynamically stable and afebrile. at bedside today. Asking when can he eat. No more episodes of atrial flutter with rapid ventricular response. T-max overnight afebrile. Discussed both with patient and patient's at bedside that for now we will keep the central line in because of history of difficulty getting access in the past and infected PICC line leading to septic thrombophlebitis. Also discussed will take a central line out if repeated blood cultures are positive concerning for bacteremia. We did discuss that if he is not infected will take the central line out on the time of discharge. Patient and verbalized understanding agreeable. Vitals/I&O/Wt Last Vital Signs Temp 98.3 F 10/06/21 08:30 Pulse 97 10/06/21 13:10 Resp 18 10/06/21 13:10 BP 104/69 10/06/21 13:10 Pulse Ox 97 10/06/21 13:10 10/05/21 10/06/21 10/06/21 22:59 06:59 14:59 Intake Total 900 / 900 3202 / 4102 3302 / 3302 Output Total 3250 / 3250 2154 / 2154 Balance 900 / 900 -48 / 852 1148 / 1148 Weight last 48 hrs Weight 141.521 kg Physical Exam Narrative: EXAM NARRATIVE: General: Awake alert x3, no acute distress. HEENT: Pallor present, better than yesterday, no icterus, PERRLA Cardiac: S1-S2 irregularly irregular, no tachycardia, no murmur, no rub. Pulmonary: Bilateral bronchial breath sounds, coarse crackles present right lower zone, good equal air entry bilaterally Abdomen: Soft, nontender, dialysis catheter site clean, obese Neurological: AOx3, moving all limbs Extremity: Right lower limb below the knee amputation. Picture as below. Data : 10/06/21 05:56 10/06/21 05:56 Micro: Microbiology 10/05/21 23:58 Gram Stain - Final Peritoneal Fluid 10/05/21 17:57 Bacterial Antigens - Final Urine Kidney 10/05/21 17:57 Legionella Urinary Antigen - Final Unknown Source 10/05/21 15:41 Blood Culture - Preliminary Blood SPECIMEN COLLECTED 10/05/21 15:41 Blood Culture - Preliminary Blood SPECIMEN COLLECTED A&P Assessment and plan (1) Sepsis: Status: Acute (2) Anemia: Status: Acute (3) Shortness of breath: Status: Acute (4) S/P PICC central line placement: Status: Acute (5) ESRD (end stage renal disease): Status: Acute (6) Peritoneal dialysis catheter in place: Status: Acute (7) COVID-19: Status: Suspected (8) DM type 2 (diabetes mellitus, type 2): Status: Acute Qualifiers: Diabetes mellitus complication detail: with polyneuropathy Diabetes mellitus complication status: with neurologic complications 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 Most likely secondary to infection from possible pneumonia versus central line related infection versus PD peritonitis versus possible COVID-19. Blood cultures so far negative, urinalysis negative for signs of infection, flu, COVID-19 PCR negative, peritoneal fluid negative for signs of infection, urine Legionella, bacterial antigen negative. D-dimer elevated. Pro-Janusz elevated most likely secondary to CKD. Patient has a history of Pseudomonas bacteremia, recurrent infection with VRE Enterococcus. As per the old culture sensitivities for now cover with linezolid 600 mg IV twice daily, imipenem, Levaquin as per creatinine clearance. Keep mean artery pressure over 65, saturation over 88%. We will change antibiotics as per culture results. Anemia: No active sign of bleeding. Baseline hemoglobin 7.5-8. Hemoglobin at baseline today. Post 2 unit blood transfusion. Protonix 40 mg twice daily. Check stools for occult blood. Shortness of breath: Secondary to pneumonia versus COVID-19. Antibiotic as above. Sputum culture, rest of the studies as above. DuoNebs every 6 hour, desonide twice daily. Keep saturation over 88%. Lactic acidosis: Improving but still elevated. Could be secondary to slow clearance from CKD. Still cannot rule out sepsis. Will continue the current treatment. Hemodynamics better. End-stage renal disease on peritoneal dialysis: Nephrology consultation. Continue with peritoneal dialysis. Monitor BMP daily. Type 2 diabetes mellitus: Last A1c 5.7 from January 2021 Insulin sliding scale. Hypertension: Goal blood pressure less than 140/90 mmHg with mean over 65. Blood pressure is better but still soft. Continue to hold off on antihypertensives. Atrial fibrillation with rapid ventricular response: No known past medical history. Blood pressure soft for now. Does take metoprolol at home. If has recurrent episodes will start on amiodarone drip. Currently will monitor blood pressures and start amiodarone versus metoprolol accordingly. Hold off on anticoagulation given anemia. CODE STATUS: Full code. Renal dialysis diet. Heparin for DVT prophylaxis. Protonix for PUD prophylaxis. Can transfer to [facility]. Can access central line. Attestations Medical Necessity Statement*: Requires further hospitalization for management of sepsis, anemia requiring blood transfusion, lactic acidosis, atrial fibrillation Time Spent in Patient Care: Greater than 35 minutes Coding Level of Care Code Acute Pharmacy Tech for [facility] Fwd Diagnoses Sepsis A41.9 Anemia D64.9 Shortness of breath R06.02 S/P PICC central line placement Z95.828 ESRD (end stage renal disease) N18.6 Peritoneal dialysis catheter in place Z99.2 COVID-19 U07.1 DM type 2 (diabetes mellitus, type 2) E11.42 Diabetes mellitus complication detail: with polyneuropathy Diabetes mellitus complication status: with neurologic complications 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
[2021-10-06 17:32] LABS: Glucose Point of Care 255 mg/dL (70-110)
--- NOTE | 2021-10-06 18:05 | USCV_ITS ---
Levi Bonilla Age: 66 Gender: M : 1955 Exam Date: 10/06/2021 07:11 Ordering Phys: Kory Sosa MD Technologist: SCOTTIE [place]am [place] [facility] [place] Indication: DVT HISTORY: Lower extremity swelling. PROCEDURES: Venous duplex imaging was performed in bilateral lower extremities. The following venous structures were evaluated: common femoral vein, profunda vein, proximal portion of the greater saphenous vein, superficial femoral vein, and the popliteal vein. In addition, the posterior tibial and peroneal trunk were evaluated. FINDINGS: Normal 2-D Doppler and augmentation and compressibility throughout the lower extremity venous structures. Additional imaging through the proximal calf veins also reveals no thrombus. Limited evaluation of the greater saphenous vein is patent with no thrombus.. CONCLUSIONS No evidence of right lower extremity DVT. No evidence of left lower extremity DVT. Mayito Martines MD (Electronically Signed) Final Date: 06 October 2021 15:40 S
[2021-10-06] MEDS: insulin lispro 100 unit/1 mL SUBCUT ×2 (18:30→21:47)
--- NOTE | 2021-10-06 19:28 | PC.NURSE ---
Patient did not want this nurse to unwrap his dressing to the right foot. He stated Dr. Woodall already changed it today and that when it was changed tomorrow we could look at it at that time.
[2021-10-06] MEDS: aspirin 81 mg EC Tablet PO (20:22)
[2021-10-06 21:16] LABS: Glucose Point of Care 312 mg/dL (70-110)
[2021-10-07] VITALS (12 sets, daily range): BP systolic 120–149; BP diastolic 71–81; PULSE 84–113; RESP 18; TEMP 36.4–36.7; O2SAT 97–99
[2021-10-07] MEDS: Dianeal low Ca w/1.5% dex 2,000 mL Bag 2000 ML INTRAPERIT (03:32)
[2021-10-07] MEDS: levothyroxine 175 mcg Tablet PO (05:47)
[2021-10-07] MEDS: linezolid premix 600 MG/300 ML PREMIX 300 MG IV ×2 (05:47→17:38)
[2021-10-07 06:46] LABS: Basophils # 0.1 10^3/uL (0.0-0.1); Basophils % 0.4 %; Eosinophils # 0.3 10^3/uL (0.0-0.8); Eosinophils % 2.2 %; Hematocrit 23.4 % (42.0-52.0); Hemoglobin 7.9 g/dL (11.7-16.6); Lymphocytes % 8.9 %; Mean Corpuscular HGB Conc 33.8 g/dL (30.0-36.0); Mean Corpuscular Hemoglobin 32.6 pg (28.0-34.0); Mean Corpuscular Volume 96.7 fl (80-94); Mean Platelet Volume 10.7 fL (7.4-10.4); Monocytes # 1.1 10^3/uL (0.2-0.9); Monocytes % 9.7 %; Neutrophils % 78.4 %; Nucleated Red Blood Cells % 0 %; Platelet Count 92 10^3/cmm (130-400); Red Blood Count 2.42 10^6/uL (4.1-5.3); Red Cell Distribution Width 17.8 % (12.1-15.1); White Blood Count 11.5 10^3/uL (4.0-10.0)
[2021-10-07 06:49] LABS: Glucose Point of Care 240 mg/dL (70-110)
[2021-10-07 07:05] LABS: Lactate (Lactic Acid level) 2.7 mmol/L (0.5-2.2)
[2021-10-07 07:10] LABS: Alanine Aminotransferase 11 U/L (0-41); Albumin Level 3.1 g/dL (3.5-5.2); Alkaline Phosphatase 154 IU/L (40-130); Anion Gap 25.4 (5-19); Aspartate Amino Transferase 15 U/L (0-40); Blood Urea Nitrogen 80 mg/dL (8-23); Calcium 9.4 mg/dL (8.5-10.5); Carbon Dioxide 17 mmol/L (22-29); Chloride 90 mmol/L (98-107); Globulin 2.8 g/dL (1.3-4.6); Glomerular Filtration Rate 6.1 mL/min (90-130); Glucose 209 mg/dL (65-115); Magnesium 1.9 mg/dL (1.7-2.3); Osmolality Calculated 298 mOsm/kg (285-295); Phosphorus 5.8 mg/dL (2.5-4.5); Potassium 3.4 mmol/L (3.5-5.1); Sodium 129 mmol/L (136-145); Total Bilirubin 0.3 mg/dL (0.15-1.2); Total Protein 5.9 g/dL (6.6-8.7)
--- NOTE | 2021-10-07 07:48 | P.PN_ITS ---
Subjective Subjective: Interval history: Patient seen bedside this morning, he is on isolation precautions, tolerating regular diet, denies subjective fevers. Right foot amputation site is friable healed at today's visit. Vitals/I&O/Wt Last Vital Signs Temp 98.6 F 10/06/21 19:49 Pulse 84 10/07/21 04:00 Resp 18 10/07/21 00:00 BP 130/79 10/07/21 04:00 Pulse Ox 98 10/07/21 04:00 10/06/21 10/07/21 10/07/21 22:59 06:59 14:59 Intake Total 2650 / 5952 300 / 300 Output Total 1500 / 3654 620 / 4274 Balance 1150 / 2298 -620 / 1678 300 / 300 Weight last 48 hrs Weight 324 lb 12.8 oz Weight 312 lb Weight 312 lb Physical Exam Narrative: EXAM NARRATIVE: Patient is alert and oriented ?3 and in no acute distress.? The following is a focused right lower extremity exam. VASCULAR: Dorsalis pedis and posterior tibial arteries palpable.? Capillary refill time less than 3 seconds to the distal hallux bilaterally. Calf is supple and nontender proximally and distally.? Mild edema at the operative site consistent with postoperative course. NEUROLOGICAL: Protective sensation diminished. DERMATOLOGICAL: Healed right transmetatarsal amputation site, new epithelization present. No erythema, warmth or drainage, no open wounds to the lower extremities.. MUSCULOSKELETAL: Status post right transmetatarsal amputation. Muscle strength 5 out of 5 in all 3 cardinal planes to the right foot and ankle. No pain with posterior calf squeeze. Data : 10/07/21 06:09 10/07/21 06:09 Micro: Microbiology 10/06/21 13:37 Occult Blood (FIT) - Final Stool Routine Collection 10/05/21 15:41 Blood Culture - Preliminary Blood NEGATIVE TO DATE 10/05/21 15:41 Blood Culture - Preliminary Blood NEGATIVE TO DATE 10/05/21 23:58 Gram Stain - Final Peritoneal Fluid 10/05/21 17:57 Bacterial Antigens - Final Urine Kidney A&P Assessment and plan (1) DM type 2 (diabetes mellitus, type 2): Status: Acute Qualifiers: Diabetes mellitus complication detail: with polyneuropathy Diabetes mellitus complication status: with neurologic complications Diabetes mellitus supervisor intermediates insulin use: without supervisor intermediates use Qualified Code(s): E11.42 - Type 2 diabetes mellitus with diabetic polyneuropathy (2) ESRD (end stage renal disease): Status: Acute (3) Status post transmetatarsal amputation of right foot: Status: Acute (4) History of osteomyelitis: Status: Acute Plan From a podiatry standpoint his amputation site is now healed. Last surgical debr idement and cultures taken on the right foot was 07/08/2021. This was healed by secondary intention utilizing local wound care, wound VAC as well as parenteral antibiotics managed by infectious disease [facility] Dr. Hanley. Did 8 weeks of Primaxin through subclavian PICC line and oral linezolid which he is still taking, Primaxin was discontinued 2 weeks ago, his line PICC line remains in place. Has had [facility]. Would not rule out chronic osteomyelitis however I do not believe that there is an acute infection or acute osteomyelitis contributing to a systemic symptoms at this time. Podiatry will follow while inpatient, right transmetatarsal amputation site is now healed. Attestations Medical Necessity Statement*: Status post right transmetatarsal amputation Coding Level of Care Code Acute Panel Flow Machine Operator for [facility] Fwd Diagnoses DM type 2 (diabetes mellitus, type 2) E11.42 Diabetes mellitus complication detail: with polyneuropathy Diabetes mellitus complication status: with neurologic complications Diabetes mellitus mcfp insulin use: without mcfp use ESRD (end stage renal disease) N18.6 Status post transmetatarsal amputation of right foot Z89.431 History of osteomyelitis Z87.39
[2021-10-07] MEDS: b-complex-vitamin c Tablet 1 EACH PO (09:34)
[2021-10-07] MEDS: atorvastatin 40 mg Tablet 20 MG PO (09:34)
[2021-10-07] MEDS: calcitriol 0.25 mcg Capsule PO (09:34)
[2021-10-07] MEDS: insulin lispro 100 unit/1 mL SUBCUT ×4 (09:36→20:34)
[2021-10-07] MEDS: ipratropium-albuterol 3 mL Neb INHALATION ×3 (09:42→20:31)
[2021-10-07 11:14] LABS: Glucose Point of Care 259 mg/dL (70-110)
--- NOTE | 2021-10-07 11:24 | PM.PN ---
Subjective Subjective: Interval history: Levi is doing well today. No specific complaints. Breathing more comfortably. Pneumonia being treated. Podiatry did come and have a look at his foot and said that it looks pretty good, healing nicely. Peritoneal dialysis is going well, currently using 2 L of 1.5% solution every 6 hours. Minimal extremity edema, hemodynamics look good. Vitals/I&O/Wt Last Vital Signs Temp 97.5 F L 10/07/21 08:00 Pulse 90 10/07/21 09:47 Resp 18 10/07/21 09:43 BP 120/71 10/07/21 08:00 Pulse Ox 97 10/07/21 09:43 10/06/21 10/07/21 10/07/21 22:59 06:59 14:59 Intake Total 2650 / 5952 780 / 780 Output Total 1500 / 3654 620 / 4274 Balance 1150 / 2298 -620 / 1678 780 / 780 Weight last 48 hrs Weight 147.327 kg Weight 141.521 kg Weight 141.521 kg Physical Exam Narrative: EXAM NARRATIVE: Constitutional: Awake, comfortable HEENT: Wet mucosa, no jvp, non icteric Lungs: Bilaterally clear without discernible wheeze, rales in all lung zones CVS: S1 S2, no murmurs Abdo: Soft, BS ok, exit site ok Ext 4: Minimal edema, peripheral perfusion with no cyanosis Neurological: Grossly non-focal Data : 10/07/21 06:09 10/07/21 06:09 Micro: Microbiology 10/05/21 23:58 Gram Stain - Final Peritoneal Fluid Body Fluid Culture - Preliminary 10/06/21 13:37 Occult Blood (FIT) - Final Stool Routine Collection 10/05/21 15:41 Blood Culture - Preliminary Blood NEGATIVE TO DATE 10/05/21 15:41 Blood Culture - Preliminary Blood NEGATIVE TO DATE 10/05/21 17:57 Bacterial Antigens - Final Urine Kidney A&P Assessment and plan (1) ESRD (end stage renal disease): 1. ESRD Currently on CAPD during his hospitalization, with prescription 2 L, 1.5% solution every 6 hours, will change this to 2.5% solution Strict I's and O's Dose medication for GFR less than 15 on dialysis. 2. Pneumonia. Currently on combination antibiotics for this. Low requirement for supplemental oxygen. 3. Diabetic foot Input from podiatry is appreciated, healing well at this time. 4. Anemia of ESRD Hemoglobin 7.9 g/dL, status post transfusion. Continue to monitor closely, of note iron saturation 73.9, will give a dose of Epogen. Pavel Urias MD Nephrology [phone] Patient seen and examined via telemedicine, with the assistance of the bedside RN > 25 min spent in evaluation and mgmt of patient Status: Acute Attestations Medical Necessity Statement*: eval for ESRD mgmt Coding Level of Care Code Acute Biofuels Plant Superintendent for [facility] Fwd Diagnoses ESRD (end stage renal disease) N18.6
[2021-10-07] MEDS: heparin 5,000 unit/mL INJ 1 mL 5000 UNIT SUBCUT ×2 (12:18→21:37)
[2021-10-07] MEDS: pantoprazole 40 mg SDV IVP ×2 (12:18→21:37)
--- NOTE | 2021-10-07 13:11 | PM.PN ---
Subjective Subjective: Interval history: No acute events overnight. Patient has remained hemodynamically stable and afebrile. at bedside. Patient jovial. Denies any nausea, vomiting, headache. Discussed in detail with him regarding the results of blood work and stool studies still now. Did discuss that his stool is positive for occult blood though hemoglobin is stable. Discussed if hemoglobin remains stable will most likely need an EGD as an outpatient along with PPIs currently. Patient is agreeable. Blood cultures so far are negative and if remain negative he will be discharged with central line to be taken out as per his ID physician at [facility]. Patient is agreeable to all above. Vitals/I&O/Wt Last Vital Signs Temp 98.0 F 10/07/21 11:45 Pulse 96 10/07/21 11:45 Resp 18 10/07/21 11:45 BP 130/76 10/07/21 11:45 Pulse Ox 97 10/07/21 11:45 10/06/21 10/07/21 10/07/21 22:59 06:59 14:59 Intake Total 2650 / 5952 880 / 880 Output Total 1500 / 3654 620 / 4274 Balance 1150 / 2298 -620 / 1678 880 / 880 Weight last 48 hrs Weight 147.327 kg Weight 141.521 kg Weight 141.521 kg Physical Exam Narrative: EXAM NARRATIVE: General: Awake alert x3, no acute distress. HEENT: Pallor present, better than yesterday, no icterus, PERRLA Cardiac: S1-S2 irregularly irregular, no tachycardia, no murmur, no rub. Pulmonary: Bilateral bronchial breath sounds, coarse crackles present right lower zone, good equal air entry bilaterally Abdomen: Soft, nontender, dialysis catheter site clean, obese Neurological: AOx3, moving all limbs Extremity: Right lower limb below the knee amputation. Data : 10/07/21 06:09 10/07/21 06:09 Micro: Microbiology 10/05/21 23:58 Gram Stain - Final Peritoneal Fluid Body Fluid Culture - Preliminary 10/06/21 13:37 Occult Blood (FIT) - Final Stool Routine Collection 10/05/21 15:41 Blood Culture - Preliminary Blood NEGATIVE TO DATE 10/05/21 15:41 Blood Culture - Preliminary Blood NEGATIVE TO DATE 10/05/21 17:57 Bacterial Antigens - Final Urine Kidney A&P Assessment and plan (1) Sepsis: Status: Acute (2) Anemia: Status: Acute (3) Shortness of breath: Status: Acute (4) S/P PICC central line placement: Status: Acute (5) ESRD (end stage renal disease): Status: Acute (6) Peritoneal dialysis catheter in place: Status: Acute (7) COVID-19: Status: Ruled-out (8) DM type 2 (diabetes mellitus, type 2): Status: Acute Qualifiers: Diabetes mellitus complication detail: with polyneuropathy Diabetes mellitus complication status: with neurologic complications Diabetes mellitus slurry blender insulin use: without detention use Qualified Code(s): E11.42 - Type 2 diabetes mellitus with diabetic polyneuropathy (9) Hypertension: Status: Acute Qualifiers: Hypertension type: essential hypertension Qualified Code(s): I10 - Essential (primary) hypertension Plan Sepsis: Criteria met with tachycardia, elevated lactate, leukocytosis, fever. PD peritonitis ruled out, COVID-19 ruled out. Blood cultures so far negative, urinalysis negative for signs of infection, flu, COVID-19 PCR negative, peritoneal fluid negative for signs of infection, urine Legionella, bacterial antigen negative. D-dimer elevated. Pro-Janusz elevated most likely secondary to CKD. Patient has a history of Pseudomonas bacteremia, recurrent infection with VRE Enterococcus. As per the old culture sensitivities for now continue with linezolid 600 mg IV twice daily, imipenem, Levaquin as per creatinine clearance. Will stop antibiotics if blood cultures remain negative. Given the fact that patient was on antibiotics prior to admission will wait for full 4 days before discontinuing antibiotics. Keep mean artery pressure over 65, saturation over 88%. We will change antibiotics as per culture results. Anemia: No active sign of bleeding. Baseline hemoglobin 7.5-8. Hemoglobin stable and is at baseline today. Post 2 unit blood transfusion. Protonix 40 mg twice daily. Check stools for occult blood. Shortness of breath: Resolved. Could be secondary to mild pneumonia as seen on CT scan. Antibiotic as above. Sputum culture pending rest of the studies as above. DuoNebs every 6 hour, desonide twice daily. Keep saturation over 88%. Lactic acidosis: Improving but still elevated. Could be secondary to slow clearance from CKD. Still cannot rule out sepsis. Will continue the current treatment. Hemodynamics better. End-stage renal disease on peritoneal dialysis: Nephrology consultation. Continue with peritoneal dialysis. Monitor BMP daily. Type 2 diabetes mellitus: Last A1c 5.7 from January 2021 Insulin sliding scale. Hypertension: Goal blood pressure less than 140/90 mmHg with mean over 65. Blood pressure is better. Restart home metoprolol tartrate but at 50 mg twice daily. Atrial fibrillation with rapid ventricular response: No known past medical history. Restart metoprolol at 50 mg twice daily dose. Hold off on anticoagulation given anemia. CODE STATUS: Full code. Renal dialysis diet. Heparin for DVT prophylaxis. Protonix for PUD prophylaxis. Plan for day: For now continue IV antibiotics as above. Restart metoprolol. Continue to monitor blood cultures. Discharge planning: If blood cultures remain negative for follow for days can discharge home with advised to follow-up with patient's outpatient ID. Will go home with central line if blood cultures remain negative. Central line will be removed as an outpatient as per his outpatient ID duration with database administration project manager at [facility]. Attestations Medical Necessity Statement*: Requires further hospitalization for management of sepsis, anemia requiring blood transfusion, elevated lactate in setting of end-stage renal disease on peritoneal dialysis Time Spent in Patient Care: Greater than 35 minutes Coding Level of Care Code Acute Papier Mache Molder for [facility] Fwd Diagnoses Sepsis A41.9 Anemia D64.9 Shortness of breath R06.02 S/P PICC central line placement Z95.828 ESRD (end stage renal disease) N18.6 Peritoneal dialysis catheter in place Z99.2 COVID-19 U07.1 DM type 2 (diabetes mellitus, type 2) E11.42 Diabetes mellitus complication detail: with polyneuropathy Diabetes mellitus complication status: with neurologic complications Diabetes mellitus detention insulin use: without detention use Hypertension I10 Hypertension type: essential hypertension
[2021-10-07] MEDS: Dianeal low Ca w/2.5% dex 2,000 mL Bag 2000 ML INTRAPERIT ×3 (13:37→21:37)
[2021-10-07] MEDS: epoetin alfa 1000 Unit/0.05 mL (ESRD) 20000 UNIT SUBCUT (14:45)
[2021-10-07 17:17] LABS: Glucose Point of Care 282 mg/dL (70-110)
[2021-10-07] MEDS: levoFLOXacin 500 mg Tablet PO (17:37)
[2021-10-07] MEDS: metoprolol tartrate 50 mg Tablet PO (17:37)
[2021-10-07] MEDS: NON-FORMULARY MEDICATION (Ferric Citrate [Auryxia] 210 mg iron Tablet) 630 EACH PO (17:37)
[2021-10-07] MEDS: aspirin 81 mg EC Tablet PO (20:27)
[2021-10-08] VITALS (15 sets, daily range): BP systolic 107–159; BP diastolic 63–87; PULSE 77–109; RESP 16–20; TEMP 36.4–37.1; O2SAT 96–99
[2021-10-08] MEDS: ipratropium-albuterol 3 mL Neb INHALATION ×4 (02:32→21:59)
[2021-10-08 04:24] LABS: Basophils % 0.4 %; Eosinophils # 0.3 10^3/uL (0.0-0.8); Eosinophils % 3.4 %; Hematocrit 23.1 % (42.0-52.0); Hemoglobin 7.7 g/dL (11.7-16.6); Lymphocytes % 13.8 %; Mean Corpuscular HGB Conc 33.3 g/dL (30.0-36.0); Mean Corpuscular Hemoglobin 31.8 pg (28.0-34.0); Mean Corpuscular Volume 95.5 fl (80-94); Mean Platelet Volume 11.2 fL (7.4-10.4); Monocytes # 0.8 10^3/uL (0.2-0.9); Monocytes % 10.3 %; Neutrophils # 5.28 10^3/uL (1.8-7.7); Neutrophils % 71.6 %; Nucleated Red Blood Cells % 0 %; Platelet Count 91 10^3/cmm (130-400); Red Blood Count 2.42 10^6/uL (4.1-5.3); Red Cell Distribution Width 16.8 % (12.1-15.1); White Blood Count 7.4 10^3/uL (4.0-10.0)
[2021-10-08 05:02] LABS: Alanine Aminotransferase 10 U/L (0-41); Alkaline Phosphatase 143 IU/L (40-130); Anion Gap 22.2 (5-19); Aspartate Amino Transferase 15 U/L (0-40); Blood Urea Nitrogen 79 mg/dL (8-23); Calcium 8.1 mg/dL (8.5-10.5); Carbon Dioxide 20 mmol/L (22-29); Chloride 87 mmol/L (98-107); Globulin 2.4 g/dL (1.3-4.6); Glomerular Filtration Rate 5.8 mL/min (90-130); Glucose 181 mg/dL (65-115); Magnesium 1.8 mg/dL (1.7-2.3); Osmolality Calculated 290 mOsm/kg (285-295); Phosphorus 5.2 mg/dL (2.5-4.5); Potassium 3.2 mmol/L (3.5-5.1); Sodium 126 mmol/L (136-145); Total Bilirubin 0.3 mg/dL (0.15-1.2); Total Protein 5.4 g/dL (6.6-8.7)
--- NOTE | 2021-10-08 05:19 | PC.NURSE ---
Voalte message regarding critical creatinine of 9.2 sent to employee communications intern Dr Martin. Patient is on peritoneal dialysis and this is his baseline. NO new orders at this time.
[2021-10-08] MEDS: linezolid premix 600 MG/300 ML PREMIX 300 MG IV ×2 (05:46→18:17)
[2021-10-08] MEDS: Dianeal low Ca w/2.5% dex 2,000 mL Bag 2000 ML INTRAPERIT ×5 (05:46→23:16)
[2021-10-08] MEDS: levothyroxine 175 mcg Tablet PO (05:46)
[2021-10-08 06:45] LABS: Glucose Point of Care 316 mg/dL (70-110)
[2021-10-08 06:45] LABS: Glucose Point of Care 236 mg/dL (70-110)
--- NOTE | 2021-10-08 07:58 | PM.PN ---
Subjective Subjective: Interval history: Feels well today, better, PD is going well. Minimal edema and no other hypervolemic Sx. No cough, no SOB/PABLO, no uremic Sx Medications: Reviewed: Yes Medication Review Details: Current Medications Acetaminophen (Acetaminophen 325 Mg Tablet) 650 mg PO Q6H PRN PRN Reason: Mild/Mod Pain Or Temp >/= 101 Albuterol/Ipratropium (Ipratropium-Albuterol 3 Ml Neb) 3 ml INHALATION Q6H.RESPIRATORY MARIANELA Last Admin: 10/06/21 03:22 Dose: 3 ml Documented by: Aspirin (Aspirin 81 Mg Ec Tablet) 81 mg PO BEDTIME MARIANELA Last Admin: 10/05/21 22:49 Dose: 81 mg Documented by: Atorvastatin Calcium (Atorvastatin 40 Mg Tablet) 20 mg PO DAILY MARIANELA Bisacodyl (Bisacodyl 5 Mg Tablet) 10 mg PO DAILY PRN; Protocol PRN Reason: Constipation (see protocol) Calcium Carbonate (Calcium Carbonate 500 Mg Chew Tablet) 1,000 mg PO Q4H PRN PRN Reason: DYSPEPSI Ergocalciferol (Ergocalciferol (Vitamin D2) 50,000 Unit Capsule) 50,000 unit PO Q7D MARIANELA Heparin Sodium (Porcine) (Heparin 5,000 Unit/Ml Inj 1 Ml) 5,000 unit SUBCUT Q12H MARIANELA Last Admin: 10/05/21 22:56 Dose: 5,000 unit Documented by: Hydroxyzine HCl (Hydroxyzine 10 Mg Tablet) 10 mg PO PRN PRN PRN Reason: ANXIETY Last Admin: 10/05/21 23:24 Dose: 10 mg Documented by: Linezolid (Zyvox Premix) 600 mg in 300 mls @ 300 mls/hr IV Q12H MARIANELA; Protocol Last Admin: 10/06/21 06:19 Dose: 300 mls/hr Documented by: Imipenem/Cilastatin Sodium 250 (mg/ Sodium Chloride) 100 mls @ 200 mls/hr IV Q12H MARIANELA; Protocol Last Infusion: 10/05/21 22:13 Dose: Infused Documented by: Levofloxacin (Levofloxacin 500 Mg Tablet) 500 mg PO Q48H MARIANELA; Protocol Levothyroxine Sodium (Levothyroxine 175 Mcg Tablet) 175 mcg PO QAM MARIANELA Last Admin: 10/06/21 06:19 Dose: 175 mcg Documented by: Multivitamins (A-Esmcvzv-Zzgijgp C Tablet) 1 each PO DAILY [facility] Non-Formulary Medication (Imipramine Hcl) 10 mg PO BEDTIME MARIANELA Non-Formulary Medication (Paricalcitol [Zemplar]) 1 mcg PO DAILY [facility] Ondansetron HCl (Ondansetron 2 Mg/Ml Sdv 2 Ml) 4 mg IVP Q8H PRN PRN Reason: vomiting, or N/V if npo Oxycodone HCl (Oxycodone 5 Mg Ir Tab/Cap) 5 mg PO Q8H PRN PRN Reason: pain Pantoprazole Sodium (Pantoprazole 40 Mg Sdv) 40 mg IVP Q12H [facility] Last Admin: 10/05/21 23:24 Dose: 40 mg Documented by: Peritoneal Dialysis Solution (Dianeal Low Ca W/1.5% Dex 2,000 Ml Bag) 2,000 ml INTRAPERIT Q6H [facility] Last Admin: 10/06/21 06:25 Dose: 2,000 ml Documented by: Vitals/I&O/Wt Last Vital Signs Temp 97.6 F 10/08/21 07:53 Pulse 109 H 10/08/21 07:53 Resp 16 10/08/21 07:53 BP 131/76 10/08/21 07:53 Pulse Ox 98 10/08/21 07:53 10/07/21 10/08/21 10/08/21 22:59 06:59 14:59 Intake Total 880 / 2240 2540 / 4780 Output Total 50 / 50 2500 / 2550 Balance 830 / 2190 40 / 2230 Weight last 48 hrs Weight 147.327 kg Weight 141.521 kg Physical Exam Narrative: EXAM NARRATIVE: Constitutional: Awake, comfortable HEENT: Wet mucosa, no jvp, non icteric Lungs: Bilaterally clear without discernible wheeze, rales in all lung zones CVS: S1 S2, no murmurs Abdo: Soft, BS ok, exit site ok Ext 4: Minimal edema, peripheral perfusion with no cyanosis Neurological: Grossly non-focal Data : 10/08/21 03:27 10/08/21 03:27 Micro: Microbiology 10/05/21 23:58 Gram Stain - Final Peritoneal Fluid Body Fluid Culture - Preliminary A&P Assessment and plan (1) ESRD (end stage renal disease): 1. ESRD Currently on CAPD during his hospitalization, with prescription 2 L, 2.5% solution, 5 times a day Strict I's and O's Dose medication for GFR less than 15 on dialysis. 2. Pneumonia. Currently on combination antibiotics for this. Low requirement for supplemental oxygen. Cultures pending 3. Diabetic foot Input from podiatry is appreciated, healing well at this time. 4. Anemia of ESRD Hemoglobin remains low, s/p PRBCs following admission. EPO given 10/07. Pavel Urias MD Nephrology [phone] Patient seen and examined via telemedicine, with the assistance of the bedside RN > 25 min spent in evaluation and mgmt of patient Status: Acute Attestations Medical Necessity Statement*: eval for PD mgmt Coding Level of Care Code Acute Boiler Water Tester for [facility] Fwd Diagnoses ESRD (end stage renal disease) N18.6
[2021-10-08] MEDS: pantoprazole 40 mg SDV IVP ×2 (08:30→22:08)
[2021-10-08] MEDS: b-complex-vitamin c Tablet 1 EACH PO (09:00)
[2021-10-08] MEDS: potassium chloride ER 20 mEq Tablet 40 MEQ PO (09:00)
[2021-10-08] MEDS: calcitriol 0.25 mcg Capsule PO (09:00)
[2021-10-08] MEDS: atorvastatin 40 mg Tablet 20 MG PO (09:00)
[2021-10-08] MEDS: metoprolol tartrate 50 mg Tablet PO ×2 (09:00→11:23)
[2021-10-08] MEDS: NON-FORMULARY MEDICATION (Ferric Citrate [Auryxia] 210 mg iron Tablet) 630 EACH PO ×3 (09:00→18:16)
[2021-10-08] MEDS: insulin lispro 100 unit/1 mL SUBCUT ×4 (09:01→22:09)
[2021-10-08] MEDS: heparin 5,000 unit/mL INJ 1 mL 5000 UNIT SUBCUT ×2 (09:25→22:08)
--- NOTE | 2021-10-08 10:05 | PC.SOCIAL ---
Pg 2 IMM Explained to pt Pg 2 IMM. No questions voiced. Provided pt a copy. Initialed, dated, & timed a copy & placed in chart.
[2021-10-08 11:50] LABS: Glucose Point of Care 276 mg/dL (70-110)
--- NOTE | 2021-10-08 16:16 | PM.PN ---
Subjective Subjective: Interval history: No acute events overnight. at bedside. No new complaints. Blood pressures controlled. Vitals/I&O/Wt Last Vital Signs Temp 98.8 F 10/08/21 15:12 Pulse 92 10/08/21 15:12 Resp 16 10/08/21 15:12 BP 115/63 10/08/21 15:12 Pulse Ox 99 10/08/21 15:12 10/08/21 10/08/21 10/08/21 06:59 14:59 22:59 Intake Total 2540 / 4780 580 / 580 Output Total 2500 / 2550 Balance 40 / 2230 580 / 580 Weight last 48 hrs Weight 147.327 kg Weight 141.521 kg Physical Exam Narrative: EXAM NARRATIVE: General: Awake alert x3, no acute distress. HEENT: Pallor present, better than yesterday, no icterus, PERRLA Cardiac: S1-S2 irregularly irregular, no tachycardia, no murmur, no rub. Pulmonary: Bilateral bronchial breath sounds, coarse crackles present right lower zone, good equal air entry bilaterally Abdomen: Soft, nontender, dialysis catheter site clean, obese Neurological: AOx3, moving all limbs Extremity: Right lower limb below the knee amputation. Data : 10/08/21 03:27 10/08/21 03:27 Micro: Microbiology 10/05/21 23:58 Gram Stain - Final Peritoneal Fluid Body Fluid Culture - Preliminary A&P Assessment and plan (1) Sepsis: Status: Acute (2) Anemia: Status: Acute (3) Shortness of breath: Status: Acute (4) S/P PICC central line placement: Status: Acute (5) ESRD (end stage renal disease): Status: Acute (6) Peritoneal dialysis catheter in place: Status: Acute (7) COVID-19: Status: Ruled-out (8) DM type 2 (diabetes mellitus, type 2): Status: Acute Qualifiers: Diabetes mellitus complication detail: with polyneuropathy Diabetes mellitus complication status: with neurologic complications Diabetes mellitus fdc insulin use: without longwall headgate operator use Qualified Code(s): E11.42 - Type 2 diabetes mellitus with diabetic polyneuropathy (9) Hypertension: Status: Acute Qualifiers: Hypertension type: essential hypertension Qualified Code(s): I10 - Essential (primary) hypertension Plan Sepsis: Criteria met with tachycardia, elevated lactate, leukocytosis, fever. PD peritonitis ruled out, COVID-19 ruled out. Blood cultures so far negative, urinalysis negative for signs of infection, flu, COVID-19 PCR negative, peritoneal fluid negative for signs of infection, urine Legionella, bacterial antigen negative. D-dimer elevated. Pro-Janusz elevated most likely secondary to CKD. Patient has a history of Pseudomonas bacteremia, recurrent infection with VRE Enterococcus. As per the old culture sensitivities for now continue with linezolid 600 mg IV twice daily, imipenem, Levaquin as per creatinine clearance. Will stop antibiotics if blood cultures remain negative. Given the fact that patient was on antibiotics prior to admission will wait for full 4 days before discontinuing antibiotics. Keep mean artery pressure over 65, saturation over 88%. We will change antibiotics as per culture results. Anemia: No active sign of bleeding. Baseline hemoglobin 7.5-8. Hemoglobin stable and is at baseline today. Post 2 unit blood transfusion. Protonix 40 mg twice daily. Check stools for occult blood. Shortness of breath: Resolved. Could be secondary to mild pneumonia as seen on CT scan. Antibiotic as above. Sputum culture pending rest of the studies as above. DuoNebs every 6 hour, desonide twice daily. Keep saturation over 88%. Lactic acidosis: Improving but still elevated. Could be secondary to slow clearance from CKD. Still cannot rule out sepsis. Will continue the current treatment. Hemodynamics better. End-stage renal disease on peritoneal dialysis: Nephrology consultation. Continue with peritoneal dialysis. Monitor BMP daily. Type 2 diabetes mellitus: Last A1c 5.7 from January 2021 Insulin sliding scale. Hypertension: Goal blood pressure less than 140/90 mmHg with mean over 65. Blood pressure is better. Restart home metoprolol tartrate but at 50 mg twice daily. Atrial fibrillation with rapid ventricular response: No known past medical history. Restart metoprolol at 50 mg twice daily dose. Hold off on anticoagulation given anemia. CODE STATUS: Full code. Renal dialysis diet. Heparin for DVT prophylaxis. Protonix for PUD prophylaxis. Plan for day: Continue with IV antibiotics. Increase metoprolol to 100 mg twice daily. If blood pressures higher than 140 systolic will add home dose of amlodipine. Monitor blood cultures. Discharge planning: If blood cultures remain negative for follow for days can discharge home with advised to follow-up with patient's outpatient ID. Will go home with central line if blood cultures remain negative. Central line will be removed as an outpatient as per his outpatient ID duration with imaging nurse at [facility]. Attestations Medical Necessity Statement*: Requires further hospital for management of sepsis in a patient with history of VRE Enterococcus infection, Pseudomonas bacteremia, central line in place, end-stage renal disease on peritoneal dialysis, anemia requiring blood transfusion riled blood cultures from monitor before discharge Time Spent in Patient Care: Greater than 35 minutes Coding Level of Care Code Acute Marble Rubber for [facility] Fwd Diagnoses Sepsis A41.9 Anemia D64.9 Shortness of breath R06.02 S/P PICC central line placement Z95.828 ESRD (end stage renal disease) N18.6 Peritoneal dialysis catheter in place Z99.2 COVID-19 U07.1 DM type 2 (diabetes mellitus, type 2) E11.42 Diabetes mellitus complication detail: with polyneuropathy Diabetes mellitus complication status: with neurologic complications Diabetes mellitus longwall headgate operator insulin use: without longwall headgate operator use Hypertension I10 Hypertension type: essential hypertension
--- NOTE | 2021-10-08 16:51 | PC.CHAP ---
Pastoral Care Encounter/Spiritual Assessment Type of Contact [] Declined duck operator visit [] Patient/Family/Request visit [] Outpatient visit [] Follow-up visit [] Physician referral [] Code/Alert [XX] Routine visit [] Staff referral [] Actively dying [] Patient sleeping [] Family support [] [] Out of room [] Palliative care [] [] Receiving care in room [] Pre-surgical visit [] Trauma [] Long length of stay [] ICU visit [] Other: Relational/Emotional Strength [XX] Patient feels connected with others/family/visitors/staff [] Distress [] Loneliness/isolation [] Abandonment Spirituality of Patient [XX] Person of Kaitlyn [XX] Attends Judaism of their Kaitlyn [XX] Believes in Prayer [] Reads Bible or Samaritan materials [] There are Spiritual issues to be addressed Supervisor Graphite Interventions [] Prayer [XX] Active listening [XX] Non-anxious presence [] Spiritual/emotional support [] Crisis/trauma care [] Spiritual counseling [] Bereavement support [] Provided bereavement packet [] Provided Bible/devotional materials [] Provided toy/stuffed animal, coloring book to patient or family member [] Provided Communion [] Anointing/Lena [] Salvation [XX] Completed spiritual assessment [] Other: Impact on Illness or Injury [] Angry [] Fearful [] Anxious [] Often cries [] Exhaustion [] Unable to work [] Unable to attend tenriism [] Unable to walk/stand [] Unable to read [] Unable to drive [] Unable to eat/drink [] Unable to sleep [] Unable to be with family [] Patient intubated [] Other: Summary: Pt feeling so much better and in good spirits. Pt says that plan is for discharge tomorrow. Pt has strong support system and had no needs from pastoral care at this time. Pt appreciated visit very much. Time spent with patient: 10 mins
[2021-10-08 17:13] LABS: Glucose Point of Care 245 mg/dL (70-110)
[2021-10-08] MEDS: metoprolol tartrate 50 mg Tablet 100 MG PO (20:08)
[2021-10-08] MEDS: aspirin 81 mg EC Tablet PO (20:09)
[2021-10-08 20:48] LABS: Glucose Point of Care 280 mg/dL (70-110)
[2021-10-09] VITALS (7 sets, daily range): BP systolic 115–136; BP diastolic 67–87; PULSE 83–99; RESP 16–18; TEMP 36.4–36.6; O2SAT 94–99
[2021-10-09] MEDS: ipratropium-albuterol 3 mL Neb INHALATION ×2 (03:43→08:40)
[2021-10-09] MEDS: linezolid premix 600 MG/300 ML PREMIX 300 MG IV (05:19)
[2021-10-09] MEDS: levothyroxine 175 mcg Tablet PO (05:20)
[2021-10-09] MEDS: Dianeal low Ca w/2.5% dex 2,000 mL Bag 2000 ML INTRAPERIT ×2 (05:20→10:00)
[2021-10-09 06:39] LABS: Glucose Point of Care 213 mg/dL (70-110)
[2021-10-09] MEDS: NON-FORMULARY MEDICATION (Ferric Citrate [Auryxia] 210 mg iron Tablet) 630 EACH PO ×2 (08:13→12:38)
[2021-10-09] MEDS: metoprolol tartrate 50 mg Tablet 100 MG PO (08:14)
[2021-10-09] MEDS: insulin lispro 100 unit/1 mL SUBCUT ×2 (08:14→12:38)
[2021-10-09] MEDS: calcitriol 0.25 mcg Capsule PO (08:15)
[2021-10-09] MEDS: b-complex-vitamin c Tablet 1 EACH PO (08:15)
[2021-10-09] MEDS: atorvastatin 40 mg Tablet 20 MG PO (08:15)
--- NOTE | 2021-10-09 08:31 | PM.PN ---
Subjective Subjective: Interval history: Renal peritoneal dialysis is going well today. Some very mild extremity edema. Keen to go home. Waiting on final blood culture. Dynamics look nice and stable. No other new issues. Medications: Reviewed: Yes Medication Review Details: Current Medications Acetaminophen (Acetaminophen 325 Mg Tablet) 650 mg PO Q6H PRN PRN Reason: Mild/Mod Pain Or Temp >/= 101 Albuterol/Ipratropium (Ipratropium-Albuterol 3 Ml Neb) 3 ml INHALATION Q6H.RESPIRATORY MARIANELA Last Admin: 10/06/21 03:22 Dose: 3 ml Documented by: Aspirin (Aspirin 81 Mg Ec Tablet) 81 mg PO BEDTIME MARIANELA Last Admin: 10/05/21 22:49 Dose: 81 mg Documented by: Atorvastatin Calcium (Atorvastatin 40 Mg Tablet) 20 mg PO DAILY MARIANELA Bisacodyl (Bisacodyl 5 Mg Tablet) 10 mg PO DAILY PRN; Protocol PRN Reason: Constipation (see protocol) Calcium Carbonate (Calcium Carbonate 500 Mg Chew Tablet) 1,000 mg PO Q4H PRN PRN Reason: DYSPEPSI Ergocalciferol (Ergocalciferol (Vitamin D2) 50,000 Unit Capsule) 50,000 unit PO Q7D MARIANELA Heparin Sodium (Porcine) (Heparin 5,000 Unit/Ml Inj 1 Ml) 5,000 unit SUBCUT Q12H MARIANELA Last Admin: 10/05/21 22:56 Dose: 5,000 unit Documented by: Hydroxyzine HCl (Hydroxyzine 10 Mg Tablet) 10 mg PO PRN PRN PRN Reason: ANXIETY Last Admin: 10/05/21 23:24 Dose: 10 mg Documented by: Linezolid (Zyvox Premix) 600 mg in 300 mls @ 300 mls/hr IV Q12H MARIANELA; Protocol Last Admin: 10/06/21 06:19 Dose: 300 mls/hr Documented by: Imipenem/Cilastatin Sodium 250 (mg/ Sodium Chloride) 100 mls @ 200 mls/hr IV Q12H [facility]; Protocol Last Infusion: 10/05/21 22:13 Dose: Infused Documented by: Levofloxacin (Levofloxacin 500 Mg Tablet) 500 mg PO Q48H MARIANELA; Protocol Levothyroxine Sodium (Levothyroxine 175 Mcg Tablet) 175 mcg PO QAM MARIANELA Last Admin: 10/06/21 06:19 Dose: 175 mcg Documented by: Multivitamins (N-Ipvlzlr-Wntzaul C Tablet) 1 each PO DAILY MARIANELA Non-Formulary Medication (Imipramine Hcl) 10 mg PO BEDTIME MARIANELA Non-Formulary Medication (Paricalcitol [Zemplar]) 1 mcg PO DAILY [facility] Ondansetron HCl (Ondansetron 2 Mg/Ml Sdv 2 Ml) 4 mg IVP Q8H PRN PRN Reason: vomiting, or N/V if npo Oxycodone HCl (Oxycodone 5 Mg Ir Tab/Cap) 5 mg PO Q8H PRN PRN Reason: pain Pantoprazole Sodium (Pantoprazole 40 Mg Sdv) 40 mg IVP Q12H [facility] Last Admin: 10/05/21 23:24 Dose: 40 mg Documented by: Peritoneal Dialysis Solution (Dianeal Low Ca W/1.5% Dex 2,000 Ml Bag) 2,000 ml INTRAPERIT Q6H [facility] Last Admin: 10/06/21 06:25 Dose: 2,000 ml Documented by: Vitals/I&O/Wt Last Vital Signs Temp 97.9 F 10/09/21 04:00 Pulse 99 10/09/21 04:00 Resp 16 10/09/21 04:00 BP 115/74 10/09/21 04:00 Pulse Ox 98 10/09/21 04:00 10/08/21 10/09/21 10/09/21 22:59 06:59 14:59 Intake Total 7580 / 8160 4300 / 14361 Output Total 7350 / 7350 4900 / 27229 Balance 230 / 810 -600 / 210 Weight last 48 hrs Weight 143.789 kg Physical Exam Narrative: EXAM NARRATIVE: Constitutional: Awake, comfortable HEENT: Wet mucosa, no jvp, non icteric Lungs: Bilaterally clear without discernible wheeze, rales in all lung zones CVS: S1 S2, no murmurs Abdo: Soft, BS ok, exit site ok Ext 4: Minimal edema, peripheral perfusion with no cyanosis Neurological: Grossly non-focal Data : 10/08/21 03:27 10/08/21 03:27 Micro: Microbiology 10/05/21 23:58 Gram Stain - Final Peritoneal Fluid Body Fluid Culture - Preliminary A&P Assessment and plan (1) ESRD (end stage renal disease): 1. ESRD Currently on CAPD during his hospitalization, with prescription 2 L, 2.5% solution, 5 times a day; switch to 1.5% if he remains in house Strict I's and O's Dose medication for GFR less than 15 on dialysis. 2. Pneumonia. Currently on combination antibiotics for this. Low requirement for supplemental oxygen. 3. Diabetic foot Input from podiatry is appreciated, healing well at this time. 4. Anemia of ESRD Hemoglobin remains low, s/p PRBCs following admission. EPO given 10/07. 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
[2021-10-09] MEDS: heparin 5,000 unit/mL INJ 1 mL 5000 UNIT SUBCUT (09:57)
[2021-10-09] MEDS: pantoprazole 40 mg SDV IVP (10:59)
[2021-10-09 11:49] LABS: Glucose Point of Care 278 mg/dL (70-110)
--- NOTE | 2021-10-09 11:58 | P.DS_ITS ---
Discharge Providers Date of Admission: 10/05/21 17:05 Date of Discharge: October 09, 2021 Attending Provider at Admission: Kory Sosa MD Attending Provider at Discharge: Kory Sosa MD Consults: Telemetry nephrology Primary Care Provider: Frankie Woodall DPM Diagnoses at Discharge Discharge Diagnosis (1) ESRD (end stage renal disease): Status: Acute (2) Peritoneal dialysis catheter in place: Status: Acute (3) S/P PICC central line placement: Status: Acute (4) Hypertension: Status: Acute Qualifiers: Hypertension type: essential hypertension Qualified Code(s): I10 - Essential (primary) hypertension (5) DM type 2 (diabetes mellitus, type 2): Status: Acute Qualifiers: Diabetes mellitus complication detail: with polyneuropathy Diabetes mellitus complication status: with neurologic complications Diabetes mellitus nursing home insulin use: without nursing home use Qualified Code(s): E11.42 - Type 2 diabetes mellitus with diabetic polyneuropathy (6) Sepsis: Status: Acute (7) Fever: Status: Acute (8) Anemia: Status: Acute (9) Atrial fibrillation with RVR: Status: Acute Reason for Visit Reason for Visit: AFIB W/RVR/ LOW HGB Hospital Course Hospital Course History as per H&P: Levi Bonilla is a 66 year old male with mutliple comorbidities including CKD on PD, severe PAD s/p multiple attempted peripheral vascular interventions, peripheral neuropathy, HTN, DM, multiple infections with Enterococcus VRE, MRSA in the past 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 Have a PICC line in place.? Has been getting IV imipenem at home with last dose around 3 weeks ago, on oral linezolid currently he was brought to the ER today by his because of feeling short of breath at home.? As per his patient has been having recurrent chills, night sweats for last 1 week to 10 days along with shortness of breath which has been getting worse for last 3 to 4 days.? Patient did check rapid Covid home test which was negative.? Denies having any nausea, vomiting, diarrhea, fever at home, d izziness, chest pain.? Patient did have a fever of 103.1 Fahrenheit in the ER.? In the ER patient was also found to be in atrial fibrillation with rapid ventricular response for which he brought IV Cardizem after which he had blood pressures in 70 systolic. On examination patient is sitting up in bed complaining of shortness of breath, staring on the floor, awake and alert x3, pale with heart rate of 103, saturating 96% on room air with blood pressure of 77 systolic.? During evaluation patient has a repeat blood pressure check which is 100 systolic. Blood work done today shows a hemoglobin of 6.8, white count 10.5, platelet count of 87, ABG showing a PCO2 27, PO2 of 69.6, sodium of 132, potassium of 3.3, creatinine of 9.2, BUN of 73, lactate of 5.4, magnesium of 1.3, BNP of 23,000, baseline troponin of 262, lipase of 81 Hospital course: Patient was admitted to the hospital for further management of altered mental status, acute anemia, hypotension atrial fibrillation with rapid ventricular response on admission. On admission there was a concern for sepsis. COVID-19 was ruled out with a negative PCR. Patient was transfused 2 unit of blood transfusion after which his blood pressure and atrial fibrillation with rapid ventricular response resolved. Patient was started on broad-spectrum antibiotics at first for concerns of sepsis. Blood cultures were taken. Patient remained in hospital for the whole course of blood cultures being tested because he was on antibiotics just prior to admission and he has a central line in place. Blood cultures remain negative. Patient has remained hemodynamically stable and afebrile. During hospitalization patient was found to have borderline blood pressures for which antihypertensives were gradually introduced into his medical regimen. Patient has been at his baseline mentation, afebrile and hemodynamically stable for last 48 hours. Blood cultures have remained negative. He is been discharged in hemodynamically stable condition with advised to continue taking metoprolol at home dose. Advised to check his blood pressures daily and maintain a blood pressure diary and follow-up with his primary care provider within next 1 week. He is advised to start home dose of amlodipine again if his systolic blood pressures go over 140 mmHg. Patient is been discharged with central line in place. He is to follow-up with his ID physician at [place] and central line is to be taken out as per his physicians there. Patient's care were discussed in detail with patient and his at bedside and they both verbalized understanding and agreement to the care plan. Physical Exam Narrative: EXAM NARRATIVE: General: Awake alert x3, no acute distress. HEENT: Pallor present, better than yesterday, no icterus, PERRLA Cardiac: S1-S2 irregularly irregular, no tachycardia, no murmur, no rub. Pulmonary: Bilateral bronchial breath sounds, coarse crackles present right lower zone, good equal air entry bilaterally Abdomen: Soft, nontender, dialysis catheter site clean, obese Neurological: AOx3, moving all limbs Extremity: Right lower limb below the knee amputation. Discharge Data Studies Completed and Pending Completed Studies During Hospitalization Category Date Time Status CT chest abd pel wo con Urgent Cat Scan 10/05/21 18:05 Completed XR chest 1V portable [id number] Stat Exams 10/05/21 15:22 [place] [id number] Urgent Ultrasound 10/06/21 18:05 Completed Pending at discharge Category Date Time Status Blood Culture Stat Lab 10/05/21 15:41 Results Body Fluid Culture & GS Stat Lab 10/05/21 23:58 Results Sputum Culture and Gram Stain Routine Lab 10/06/21 13:52 Uncollected Radiology Impressions Chest X-Ray 10/05/21 15:22 Impression: 1. Minimal patchy right lower lobe pulmonary opacity which could represent acute pneumonia. 2. Cardiomegaly and atherosclerosis. Chest/Abdomen/Pelvis CT 10/05/21 18:05 IMPRESSION: 1. Nodular consolidation in the right middle lobe with surrounding ground-glass opacity. This is most likely pneumonia. CT follow-up in 2-3 months is recommended to document resolution. 2. Small group of tree-in-bud opacities in the left upper lobe most likely represents endobronchial infection. Attention at CT follow-up. IMPRESSION: 1. No acute abnormality identified in the abdomen or pelvis. 2. Splenomegaly. 3. Mild-moderate ascites. 4. Cholelithiasis. 5. Evaluation of the mid abdomen and bowel is limited due to significant motion artifact. Laboratory Results WBC 7.4 10^3/uL (4.0-10.0) 10/08/21 03:27 RBC 2.42 10^6/uL (4.1-5.3) L 10/08/21 03:27 Hgb 7.7 g/dL (11.7-16.6) L 10/08/21 03:27 Hct 23.1 % (42.0-52.0) L 10/08/21 03:27 MCV 95.5 fl (80-94) H 10/08/21 03:27 MCH 31.8 pg (28.0-34.0) 10/08/21 03:27 MCHC 33.3 g/dL (30.0-36.0) 10/08/21 03:27 RDW 16.8 % (12.1-15.1) H 10/08/21 03:27 Plt Count 91 10^3/cmm (130-400) L 10/08/21 03:27 MPV 11.2 fL (7.4-10.4) H 10/08/21 03:27 Neut % (Auto) 71.6 % 10/08/21 03:27 Lymph % (Auto) 13.8 % 10/08/21 03:27 Appling % (Auto) 10.3 % 10/08/21 03:27 Eos % (Auto) 3.4 % 10/08/21 03:27 Baso % (Auto) 0.4 % 10/08/21 03:27 Neut # (Auto) 5.28 10^3/uL (1.8-7.7) 10/08/21 03:27 Lymph # (Auto) 1.0 10^3/uL (0.8-4.8) 10/08/21 03:27 [place] # (Auto) 0.8 10^3/uL (0.2-0.9) 10/08/21 03:27 Eos # (Auto) 0.3 10^3/uL (0.0-0.8) 10/08/21 03:27 Baso # (Auto) 0.0 10^3/uL (0.0-0.1) 10/08/21 03:27 Nucleated RBC % (auto) 0 % 10/08/21 03:27 Nucleated RBCs # 0.0 /100WBC 10/08/21 03:27 D-Dimer 5.12 ug/mIFEU (0-0.59) H 10/05/21 21:15 Specimen Type Arterial 10/05/21 18:00 Sample Site Brachial, right 10/05/21 18:00 ABG pH 7.44 (7.35-7.45) 10/05/21 18:00 ABG pCO2 27.3 mmHg (35-45) L 10/05/21 18:00 ABG pO2 69.6 mmHg (80.0-100.0) L 10/05/21 18:00 ABG HCO3 18.7 mmol/L (22-26) L 10/05/21 18:00 ABG O2 Saturation 93.7 10/05/21 18:00 ABG Base Excess -4.3 mmol/L (-2.0-2.0) L 10/05/21 18:00 Eber Test Pos 10/05/21 18:00 A-a O2 Gradient 6.1 mmHg (5-10) 10/05/21 18:00 Hematocrit 34.8 % (42-52) L 10/05/21 18:00 Hgb O2 Saturation 92.2 % (95-100) L 10/05/21 18:00 Carboxyhemoglobin 0.5 %THgb (0.4-20.1) 10/05/21 18:00 Methemoglobin 1.1 % (0.4-1.5) 10/05/21 18:00 Total Hemoglobin 11.4 g/dL (14-18) L 10/05/21 18:00 Sodium 132.0 mmol/L (131-143) 10/05/21 18:00 Potassium 3.2 mmol/L (3.5-5.0) L 10/05/21 18:00 Glucose 208.0 mg/dL (70-115) H 10/05/21 18:00 Ionized Calcium 1.1 mmol/L (1.1-1.4) 10/05/21 18:00 O2 Delivery Device Room air 10/05/21 18:00 FiO2 21.0 % 10/05/21 18:00 Skiver Operator ID Cak 10/05/21 18:00 Sodium 126 mmol/L (136-145) L 10/08/21 03:27 Potassium 3.2 mmol/L (3.5-5.1) L 10/08/21 03:27 Chloride 87 mmol/L (98-107) L 10/08/21 03:27 Carbon Dioxide 20 mmol/L (22-29) L 10/08/21 03:27 Anion Gap 22.2 (5-19) H 10/08/21 03:27 BUN 79 mg/dL (8-23) H 10/08/21 03:27 Creatinine 9.2 mg/dL (0.7-1.2) H* 10/08/21 03:27 GFR Calculation 5.8 mL/min (90-130) L 10/08/21 03:27 Glucose 181 mg/dL (65-115) H 10/08/21 03:27 POC Glucose 278 mg/dL (70-110) H 10/09/21 11:15 Calculated Osmolality 290 mOsm/kg (285-295) 10/08/21 03:27 Lactic Acid 5.4 mmol/L (0.5-2.2) H* 10/05/21 15:41 Lactic Acid (Sepsis) 6.3 mmol/L (0.5-2.2) H* 10/05/21 21:15 Lactate 2.7 mmol/L (0.5-2.2) H 10/07/21 06:09 Uric Acid 6.2 mg/dL (3.4-7.0) 10/06/21 05:56 Calcium 8.1 mg/dL (8.5-10.5) L 10/08/21 03:27 Phosphorus 5.2 mg/dL (2.5-4.5) H 10/08/21 03:27 Magnesium 1.8 mg/dL (1.7-2.3) 10/08/21 03:27 Iron 165 ug/dL (59-158) H 10/05/21 15:41 TIBC 223 mcg/dl 10/05/21 15:41 % Saturation 73.9 % (20-50) H 10/05/21 15:41 Unsat Iron Binding 58 ug/dL (112-347) L 10/05/21 15:41 Total Bilirubin 0.3 mg/dL (0.15-1.2) 10/08/21 03:27 AST 15 U/L (0-40) 10/08/21 03:27 ALT 10 U/L (0-41) 10/08/21 03:27 Alkaline Phosphatase 143 IU/L (40-130) H 10/08/21 03:27 Creatine Kinase 53 U/L (39-308) 10/05/21 15:41 Troponin T Baseline 262 ng/L (0-15) H* 10/05/21 15:41 Troponin T 120 Minute 192.6 ng/L (0-15) H 10/05/21 17:57 Delta Troponin T -69.4 ABS# (0-10) L 10/05/21 17:57 Troponin T Hi Sens 6Hr 244.6 ng/L (0-15) H 10/05/21 21:15 Troponin T Hi Sens 6Hr Delta -17.4 ng/L (0-12) L 10/05/21 21:15 NT-Pro-B Natriuret Pep 22927 pg/mL (0-125) H 10/05/21 15:41 Total Protein 5.4 g/dL (6.6-8.7) L 10/08/21 03:27 Albumin 3.0 g/dL (3.5-5.2) L 10/08/21 03:27 Globulin 2.4 g/dL (1.3-4.6) 10/08/21 03:27 Lipase 81 U/L (13-60) H 10/05/21 15:41 Vitamin B12 722 pg/mL (232-1245) 10/05/21 21:15 25-OH Vitamin D Total 38 ng/mL (30-100) 10/06/21 05:56 Folate > 20.0 ng/mL (4.5-32.2) 10/05/21 15:41 Procalcitonin 84.90 ng/mL (0-0.5) H 10/05/21 15:41 TSH 2.21 uIU/mL (0.27-4.20) 10/06/21 05:56 PTH Intact 406.5 pg/mL (15-65) H 10/06/21 05:56 Calcium (PTH Intact) 8.9 mg/dL (8.5-10.5) 10/06/21 05:56 Urine Color Yellow (Yellow) 10/05/21 17:57 Urine Appearance Clear (CLEAR) 10/05/21 17:57 Urine pH 5 (5-7) 10/05/21 17:57 Ur Specific [place] 1.015 (1.005-1.030) 10/05/21 17:57 Urine Protein 2+ (Negative) H 10/05/21 17:57 Urine Glucose (UA) 1+ (Normal) H 10/05/21 17:57 Urine Ketones Negative (Negative) 10/05/21 17:57 Urine Blood 2+ (Negative) H 10/05/21 17:57 Urine Nitrate Negative (Negative) 10/05/21 17:57 Urine Bilirubin 1+ (Negative) H 10/05/21 17:57 Urine Urobilinogen Norm mg/dL (Negative) 10/05/21 17:57 Ur Leukocyte Esterase Negative (Negative) 10/05/21 17:57 Urine RBC 0-4 /hpf (0-2) H 10/05/21 17:57 Urine WBC None /hpf (0-5) 10/05/21 17:57 Ur Squamous Epith Cells 0-4 /hpf (0-5) H 10/05/21 17:57 Amorphous Sediment Not Reportable 10/05/21 17:57 Urine Bacteria Trace /hpf (NONE) 10/05/21 17:57 Coarse Granular Casts 0-4 /lpf H 10/05/21 17:57 Peritoneal Color Pale yellow (Pale Yellow) 10/05/21 23:58 Peritoneal Appearance Clear (Clear) 10/05/21 23:58 Peritoneal pH 8.0 10/05/21 23:58 Peritoneal Spec [place] 1.010 10/05/21 23:58 Peritoneal WBC 28 /uL 10/05/21 23:58 Peritoneal RBC 1 10^3/uL 10/05/21 23:58 Periton Mononu # Auto 0.020 10^3/uL 10/05/21 23:58 Mononuclear WBCs % 71.400 % 10/05/21 23:58 Polynuclear WBCs % 28.600 % 10/05/21 23:58 Perit Polynuc WBCs # 0.008 10^3/uL 10/05/21 23:58 Peritoneal Albumin 0.2 g/dL 10/05/21 23:58 Nasal Influ A H1 2009 PCR Not detected (NOT DETECT) 10/05/21 19:35 Coronavirus 229E (PCR) Not detected (NOT DETECT) 10/05/21 19:35 Influenza A (H1) PCR Not detected (NOT DETECT) 10/05/21 19:35 Influenza A (H3) PCR Not detected (NOT DETECT) 10/05/21 19:35 Influenza Type A Ag Cancelled 10/05/21 19:35 Influenza Type A (PCR) Not detected (NOT DETECT) 10/05/21 19:35 Influenza Type B Ag Cancelled 10/05/21 19:35 Influenza Type B (PCR) Not detected (NOT DETECT) 10/05/21 19:35 SARS-CoV-2 (PCR) Not detected (NOT DETECT) 10/05/21 19:35 SARS-CoV-2 RNA (RT-PCR) Cancelled 10/05/21 19:35 SARS-CoV-2 Ag (Rapid) Negative (Negative) 10/05/21 16:22 Blood Type O Negative 10/05/21 15:41 Rho(D) Type Negative 10/05/21 15:41 Antibody Screen Negative 10/05/21 15:41 Crossmatch See Detail 10/05/21 15:41 Vitals Last Vital Signs Temp 97.6 F 10/09/21 11:54 Pulse 83 10/09/21 11:54 Resp 16 10/09/21 11:54 BP 122/67 10/09/21 11:54 Pulse Ox 98 10/09/21 11:54 Discharge Plan Discharge Patient Disposition: Home Condition: Stable Prescriptions: Continued linezolid 600 mg tablet 600 mg PO BID 14 Days Qty: 28 0RF (DME) Diabetic Shoes with Toe filler and 3 sets of insoles See Rx Instructions .Route .MEDSUPPLY Qty: 1 0RF Rx Instructions: As directed by PGEGY&O cyclobenzaprine 10 mg tablet 5 mg PO Q8H PRN (Reason: muscle spasms) 0RF torsemide 100 mg tablet 100 mg PO QAM 0RF ergocalciferol (vitamin D2) 1,250 mcg (50,000 unit) capsule 1,250 mcg PO Q7D 0RF Rx Instructions: on sun pantoprazole 40 mg tablet,delayed release (DR/EC) 40 mg PO QAM 0RF allopurinol 300 mg tablet 300 mg PO QAM 0RF Rx Instructions: recommend taking after meal. paricalcitol [Zemplar] 1 mcg Capsule 1 mcg PO DAILY 0RF polysaccharide iron complex [Ferrex 150] 150 mg iron capsule 150 mg PO BID 0RF levothyroxine 175 mcg tablet 175 mcg PO QAM 0RF aspirin 81 mg Tablet,Delayed Release (Dr/Ec) 81 mg PO BEDTIME 0RF omega 2-moj-tkv-fish oil [Fish Oil] 1,200 (144-216) mg Capsule 1 cap PO BID Qty: 0 0RF Renal Factor Plus 1 tab PO DAILY 0RF Senna Plus 8.6-50 mg capsule 1 tab-cap PO DAILY Qty: 10 0RF Auryxia 210 mg iron Tablet 630 mg PO TIDWM 0RF glipizide 5 mg tablet 5 mg PO QAM 0RF atorvastatin 20 mg Tablet 20 mg PO DAILY 0RF imipramine HCl 10 mg tablet 10 mg PO DAILY 0RF metoprolol tartrate 100 mg tablet 100 mg PO BID 0RF Held amlodipine 10 mg tablet 10 mg PO BEDTIME 0RF Hold Instructions: Resume on 10/17/21. clonidine HCl 0.1 mg tablet 0.1 mg PO BID 0RF Hold Instructions: Resume on 10/17/21. Discharge Orders: Discharge Order (Routine); Ordered 10/09/21 Ordered By: Kory Sosa Referrals: [facility] [Outside] Frankie Woodall DPM [Primary Care Provider] - (Please keep all appointments. ) Pooja Vogel [Referring] - 7-10 days (Please call Sunday to make a hospital follow up) Discharge Diet: Usual diet Discharge Activity: Resume usual activity and Increase activity as tolerated Patient Instructions: A-fib (Atrial Fibrillation) (DC), Osteomyelitis (DC), Peritoneal Dialysis Catheter Care (DC), Opioid Safety Activity Restrictions/Additional Instructions: Continue take your medicines as before. Please continue to check your blood pressures at least 2 times daily and maintain a blood pressure diary. For now continue taking metoprolol as before. If your systolic blood pressures go over 140 mmHg then you can start your amlodipine once daily again. Please follow-up with your primary care provider/cotton cleaner and ID physician at [place] as before. Central line to be taken out as per ID physicians at [place]. Discharge Attestations Time Spent in Discharge Care*: greater than 30 min Specific Discharge Activities: educating patient, educating and/or supporting family/caregiver, discussing with pcp/other providers, discussing with pillowcase maker/social workers/dc planners, documenting/other paperwork and evaluating patient/reviewing data Status at Discharge: Cognitive status at discharge: cognitively intact , Behavioral status at discharge: cooperative , Functional status at discharge: independent ambulation , Overall status at discharge: patient is back to baseline Quality Metrics Clinical Quality Measures [ No reported AMI, CVA or VTE this stay] Coding Level of Care Code Acute Chg FW DC note History Comprehensive Exam Comprehensive Medical Decision Making High Complexity Diagnoses ESRD (end stage renal disease) N18.6 Peritoneal dialysis catheter in place Z99.2 S/P PICC central line placement Z95.828 Hypertension I10 Hypertension type: essential hypertension DM type 2 (diabetes mellitus, type 2) E11.42 Diabetes mellitus complication detail: with polyneuropathy Diabetes mellitus complication status: with neurologic complications Diabetes mellitus terminal supervisor insulin use: without nursing home use Sepsis A41.9 Fever R50.9 Anemia D64.9 Atrial fibrillation with RVR I48.91
== END 2021-10-09 13:30 | disposition home health service (06) | DRG 871 ==
LOC: ER 18:21 → ER IP 20:11 → MEDSURG 10-06 15:35
PROVIDERS: Internal Medicine Nephrology; Admitting Provider Student in an Organized Health Care Education/Training Program; Emergency Provider Family Medicine; PCP Podiatrist Foot & Ankle Surgery; Visit Provider Student in an Organized Health Care Education/Training Program
DX: A41.9 Sepsis, unspecified organism (principal); J18.9 Pneumonia, unspecified organism; N18.6 End stage renal disease; I12.0 Hypertensive chronic kidney disease with stage 5 chronic kidney disease or end stage renal disease; Z68.41 Body mass index [BMI] 40.0-44.9, adult; I48.20 Chronic atrial fibrillation, unspecified; E87.2 Acidosis; E11.22 Type 2 diabetes mellitus with diabetic chronic kidney disease; Z99.2 Dependence on renal dialysis; Z79.84 Long term (current) use of oral hypoglycemic drugs; E11.42 Type 2 diabetes mellitus with diabetic polyneuropathy; Z79.82 Long term (current) use of aspirin; E03.9 Hypothyroidism, unspecified; E66.01 Morbid (severe) obesity due to excess calories; M10.9 Gout, unspecified; Z89.431 Acquired absence of right foot; D63.1 Anemia in chronic kidney disease; E11.51 Type 2 diabetes mellitus with diabetic peripheral angiopathy without gangrene; Z86.14 Personal history of Methicillin resistant Staphylococcus aureus infection; Z86.718 Personal history of other venous thrombosis and embolism
CPT/HCPCS: 36415; 36416; 36430; 36600; 71045; 71250; 74176; 80051; 80053; 81001; 82042; 82274; 82306; 82310; 82330; 82550; 82607; 82746; 82805; 82962; 83540; 83550; 83605; 83690; 83735; 83880; 83970; 83986; 84100; 84145; 84315; 84443; 84484; 84550; 85007; 85025; 85027; 85378; 85651; 86140; 86403; 86850; 86900; 86920; 87040; 87070; 87075; 87205; 87426; 87449; 87631; 87635; 87804; 89050; 93005; 93970; 94640; 94660; 96365; 96366; 96367; 96372; 96375; 99291; C9113; J0696; J0743; J1644; J1815; J2020; J3475; J3490; J7040; P9016; P9040; Q3014; Q4081

== ENCOUNTER → 2021-12-27 12:59 | Outpatient (BNVA) | payer MEDICARE, OTHER, SELFPAY | PROVIDERS: PCP Podiatrist Foot & Ankle Surgery; Visit Provider Podiatrist Foot & Ankle Surgery | DX: Z89.431 Acquired absence of right foot (principal); E11.42 Type 2 diabetes mellitus with diabetic polyneuropathy; N18.6 End stage renal disease | CPT/HCPCS: 99214 ==

== ENCOUNTER → 2022-03-22 13:11 | Outpatient (BNVA) | payer MEDICARE, SELFPAY | PROVIDERS: PCP Podiatrist Foot & Ankle Surgery; Visit Provider Podiatrist Foot & Ankle Surgery | DX: Z89.431 Acquired absence of right foot (principal); E11.42 Type 2 diabetes mellitus with diabetic polyneuropathy; N18.6 End stage renal disease | CPT/HCPCS: 99214 ==